=== PATIENT | female | born 1950 | race Two or more races ===

== ENCOUNTER 2022-12-02 08:02 | Outpatient (OUT) | payer MEDICARE, SELFPAY ==
--- NOTE | 2022-12-02 08:35 | US_ITS ---
The [address] [address] Patient Name: PEARL HAWKINS MRN: [id number] date: 1950 Sex: F Assigned Patient Location: Current Patient Location: US Accession/Order Number: [id number] Exam Date: 12/02/2022 08:40 Report Date: 12/02/2022 09:17 At the request of: YOLANDA ROSADO Procedure: US renal BI EXAM: Renal ultrasound HISTORY: . Cyst Of Kidney N28.1 . COMPARISON: None. TECHNIQUE: Grayscale and color imaging was performed FINDINGS: Scanning of the right kidney demonstrates right kidney to measure 9 x 5.3 x 5 cm. Color-flow is noted. No solid renal cortical masses or hydronephrosis is noted. There is a 6 mm cyst involving the right portion of the right kidney. Left kidney measures 10.9 x 4.9 x 3.9 cm. Color-flow is noted. No solid renal cortical masses or hydronephrosis is noted. There is a 3 mm nonobstructing right renal calculus. US/US renal BI IMPRESSION: 1. 3 mm nonobstructing left renal calculus. No hydronephrosis. 2. 6 mm cyst involving the right kidney. No hydronephrosis. Electronically authenticated by: BRYCE WILSON Date: 12/02/2022 09:17
== END 2022-12-02 08:03 | disposition home or self-care (01) ==
PROVIDERS: PCP Family Medicine; Visit Provider Urology
DX: N28.1 Cyst of kidney, acquired (principal); N20.0 Calculus of kidney
CPT/HCPCS: 76775

== ENCOUNTER 2023-02-06 23:44 | Emergency (ER) | payer MEDICARE, SELFPAY ==
[2023-02-06 23:49] VITALS: BP 160/91; PULSE 87; RESP 16; TEMP 36.7; O2SAT 98; BMI 24.5
--- NOTE | 2023-02-07 00:18 | ED.LOWEXI1 ---
HPI - Extremity Injury (Lower) General Chief Complaint: Extremity Injury, Lower Stated Complaint: LEG PAIN, POSSS BLOOD CLOT Time Seen by Provider: 02/06/23 23:55 History of Present Illness HPI Narrative: patient has varicose veins of her lower extremities. complains of pain of mary right leg for 2 weeks. States she was seen at hospital in [place] this past and found to have a blood clot . Was started on Eliquis by her PCP. Now presents complaining of pain of her right leg has moved up into her calf. she is compliant with Eliquis. no chest pain or dyspnea. Related Data Home Medications Medication Instructions Recorded Confirmed apixaban 2.5 mg tablet (Eliquis) 2.5 mg PO BID 02/06/23 02/06/23 Allergies Allergy/AdvReac Type Severity Reaction Status Date / Time amoxicillin Allergy Unknown Verified 02/06/23 23:53 cefdinir Allergy Unknown Verified 02/06/23 23:53 lisinopril Allergy Unknown Verified 02/06/23 23:53 metformin Allergy Unknown Verified 02/06/23 23:53 sulfamethoxazole Allergy Unknown Verified 02/06/23 23:53 [From Bactrim] trimethoprim [From Bactrim] Allergy Unknown Verified 02/06/23 23:53 Review of Systems ROS Status of ROS 10 or more systems reviewed and unremarkable except as noted in history and below [facility] Social History Smoking status: Never smoker Exam Constitutional Vital Signs, click to edit/add: Last Vital Signs Temp 98.0 F 02/06/23 23:49 Pulse 87 02/06/23 23:49 Resp 16 02/06/23 23:49 BP 160/91 H 02/06/23 23:49 Pulse Ox 98 02/06/23 23:49 O2 Del Method Room Air 02/06/23 23:49 Common normals: no apparent distress, average body habitus, oriented x3, no limitations, healthy appearing and alert Eye Common normals: EOMs intact bilaterally and conjunctivae normal Respiratory Common normals: normal respiratory effort, no retractions, no use of accessory muscles and clear to auscultation bilaterally Cardio Common normals: regular rate, regular rhythm, S1 normal heart sound and S2 normal heart sound Extremity Other: varicose veins bilat lower ext. Right calf tenderness. No swelling or warmth Neuro Common normals: CN's II-XII intact bilaterally, no focal motor deficits and no sensory deficits noted Psych Appearance: grossly normal Course Vital Signs Vital signs: Vital Signs Temperature 98.0 F 02/06/23 23:49 Pulse Rate 87 02/06/23 23:49 Respiratory Rate 16 02/06/23 23:49 Blood Pressure 160/91 H 02/06/23 23:49 Pulse Oximetry 98 02/06/23 23:49 Oxygen Delivery Method Room Air 02/06/23 23:49 Temperature 98.0 F 02/06/23 23:49 Pulse Rate 87 02/06/23 23:49 Respiratory Rate 16 02/06/23 23:49 Blood Pressure 160/91 H 02/06/23 23:49 Pulse Oximetry 98 02/06/23 23:49 Oxygen Delivery Method Room Air 02/06/23 23:49 MDM - Extremity Injury (Lower) MDM Narrative Medical decision making narrative: patient states she was diagnosed with blood clot 02/04/23. Describes ultrasound performed at hospital in [place]. States at that presentation she had pain of her leg at the ankle. This pain has resolved and now she has pain higher up on her leg. She has diffuse varicose veins on her right leg and points to a superficial vein that is inflamed and tender as the area of new pain. No swelling of the leg. We were not able to obtain the US report from [facility]. d-dimer positive here. Patient prescribed Eliquis 10mg bid which she has been on since 02/04/23. She is advised of the finding tonight of superficial phlebitis. That she is to continue dosing of Eliquis prescribed by her docto and she is to follow up with vascular surgeon tomorrow Wednesday. Discharged home in stable condition. No complaint of dyspnea or chest pain Discharge Plan Discharge Chief Complaint: Extremity Injury, Lower Clinical Impression: Varicose vein of leg, Phlebitis Prescriptions / Home Meds: No Action Eliquis 2.5 mg tablet 2.5 mg PO BID Instructions: Venous Insufficiency (DC) Additional Instructions: continue your current dosing of Eliquis. Can use Ice on your leg as discussed Referrals: Elisha James MD [Primary Care Provider] - 1 week
[2023-02-07 01:06] LABS: Basophils Absolute Auto 0.1 10^3/uL (0.0-0.1); Basophils Percent Auto 0.9 % (0.2-2.0); Eosinophils Absolute Auto 0.2 10^3/uL (0.0-0.7); Eosinophils Percent Auto 2.6 % (0.9-7.0); Hematocrit 36.6 % (36.0-48.0); Hemoglobin 12.8 g/dL (12.0-16.0); Immature Granulocytes Abs Auto 0.01 10^3/uL (0.00-0.03); Immature Granulocytes Pct Auto 0.1 % (0.0-0.5); Lymphocytes Absolute Auto 2.5 10^3/uL (1.2-3.8); Lymphocytes Percent Auto 36.2 % (20.5-60.0); Mean Corpuscular Hemoglobin 29.6 pg (26.7-34.0); Mean Corpuscular Volume 84.5 fL (81.0-99.0); Mean Platelet Volume 11.1 fL (9.5-13.5); Monocytes Absolute Auto 0.5 10^3/uL (0.3-0.8); Monocytes Percent Auto 7.7 % (1.7-12.0); Neutrophils Absolute Auto 3.6 10^3/uL (1.4-6.5); Neutrophils Percent Auto 52.5 % (43.0-75.0); Platelet Count 204 10^3/uL (150-450); Red Blood Count 4.33 10^6/uL (4.20-5.40); Red Cell Distribution Width 11.9 % (11.0-15.0); White Blood Count 6.9 10^3/uL (4.0-11.0)
[2023-02-07 01:14] LABS: Anion Gap 13.8; BUN Creatinine Ratio 12.2; Calcium 9.1 mg/dL (8.5-10.1); Carbon Dioxide 25.6 mmol/L (21.0-32.0); Chloride 102 mmol/L (98-107); Estimated GFR (African America >60 (>=60); Estimated GFR (Non-African Ame >60 (>=60); Glucose 207 mg/dL (74-106); Potassium 3.4 mmol/L (3.5-5.1); Sodium 138 mmol/L (136-145)
== END 2023-02-07 02:33 | disposition home or self-care (01) ==
PROVIDERS: Emergency Provider Internal Medicine; PCP Family Medicine
DX: I80.3 Phlebitis and thrombophlebitis of lower extremities, unspecified (principal); I83.811 Varicose veins of right lower extremity with pain; Z79.01 Long term (current) use of anticoagulants
CPT/HCPCS: 36415; 80048; 85025; 85378; 99283

== ENCOUNTER 2023-03-04 09:56 | Outpatient (OUT) | payer MEDICARE, SELFPAY ==
--- NOTE | 2023-03-04 | XR_ITS ---
The [address] [address] Patient Name: PEARL HAWKINS MRN: [facility]:[id number] date: 1950 Sex: F Assigned Patient Location: MRI Current Patient Location: Accession/Order Number: [id number] Exam Date: 03/04/2023 10:35 Report Date: 03/05/2023 06:53 At the request of: GINO CARRASQUILLO Procedure: XR cervical spine 5V EXAMINATION: XR cervical spine 5V HISTORY: Recurrent occipital headache , chronic posterior head and neck pain greater on right side, dizziness, no known injury COMPARISON: XR C-spine 11/20/2020 FINDINGS: BONES: Reversal of normal lordotic curvature of the lower cervical spine. Minimal grade 1 anterolisthesis of C5 on 6. No fracture. Moderate degenerative facet arthropathy resulting in bone encroachment of the neural foramen bilaterally at C3-4 through C6-7. Multilevel degenerative uncovertebral joint spurring. DISC SPACES: Moderate narrowing C5-6, C6-7. PARASPINOUS: Negative. No paraspinous abnormality is seen. OTHER: Negative. XR/XR cervical spine 5V IMPRESSION: 1. Multilevel degenerative disc disease and facet arthropathy; not appreciably changed. Consider MRI for further evaluation. Electronically authenticated by: KYLIE MARCANO Date: 03/05/2023 06:53
--- NOTE | 2023-03-04 | MR_ITS ---
The [address] [address] Patient Name: PEARL HAWKINS MRN: [facility]:[id number] date: 1950 Sex: F Assigned Patient Location: MRI Current Patient Location: MRI Accession/Order Number: [id number] Exam Date: 03/04/2023 10:40 Report Date: 03/04/2023 18:29 At the request of: GINO CARRASQUILLO Procedure: MR head/brain wo con EXAM: MR head/brain wo con HISTORY: Recurrent occipital headache COMPARISON: CT brain 03/09/2022. TECHNIQUE: MRI of the brain was performed without contrast. FINDINGS: There is no restricted diffusion to suggest acute infarct. There is no midline shift, mass effect, or abnormal extraaxial fluid collections. The cortical sulci and ventricular system are within normal limits for age. There are multiple nonspecific scattered and confluent foci of T2/FLAIR signal abnormality in the subcortical and periventricular white matter, chronic microvascular ischemic changes. The major intracranial flow voids are visualized. The cerebellar tonsils are normal in position. The orbits are unremarkable. The paranasal sinuses demonstrate no air-fluid level. The mastoid air cells are clear. MR/MR head/brain wo con IMPRESSION: No acute intracranial abnormality. Moderate chronic microvascular ischemic changes. Electronically authenticated by: SANNA BLACKBURN Date: 03/04/2023 18:29
== END 2023-03-04 09:57 | disposition home or self-care (01) ==
LOC: MRI 09:58
PROVIDERS: PCP Family Medicine; Visit Provider Family Medicine
DX: R51.9 Headache, unspecified (principal); M50.30 Other cervical disc degeneration, unspecified cervical region; M47.812 Spondylosis without myelopathy or radiculopathy, cervical region
CPT/HCPCS: 70551; 72050

== ENCOUNTER 2023-03-09 20:35 | Outpatient (REF) | payer MEDICARE, SELFPAY ==
[2023-03-12 22:08] LABS: Age Gdln ACOG Testing Note (.); Pap IG (Image Guided) Note (.)
== END 2023-03-09 20:36 | disposition home or self-care (01) ==
LOC: LAB 20:35
PROVIDERS: PCP Family Medicine; Visit Provider Obstetrics & Gynecology
DX: Z01.419 Encounter for gynecological examination (general) (routine) without abnormal findings (principal)
CPT/HCPCS: G0145

== ENCOUNTER 2023-03-17 12:56 | Outpatient (OUT) | payer MEDICARE, SELFPAY ==
--- NOTE | 2023-03-17 12:58 | US_ITS ---
The [address] [address] Patient Name: PEARL HAWKINS MRN: [id number] date: 1950 Sex: F Assigned Patient Location: US Current Patient Location: Accession/Order Number: [id number] Exam Date: 03/17/2023 12:58 Report Date: 03/18/2023 07:37 At the request of: DARBY JUAREZ Procedure: US pelvis w/ transvaginal EXAM: US pelvis w/ transvaginal HISTORY: PELVIC PAIN COMPARISON: None. TECHNIQUE: Transabdominal pelvic sonography was performed utilizing grayscale and color Doppler technique. FINDINGS: As below. US/US pelvis w/ transvaginal IMPRESSION: 1. Hysterectomy. 2. Ovaries not visualized. No adnexal masses. 3. No significant free fluid. Electronically authenticated by: KP CHOWDARY Date: 03/18/2023 07:37
== END 2023-03-17 12:57 | disposition home or self-care (01) ==
LOC: US 12:56
PROVIDERS: PCP Family Medicine; Visit Provider Obstetrics & Gynecology
DX: R10.2 Pelvic and perineal pain (principal)
CPT/HCPCS: 76830; 76856

== ENCOUNTER 2023-04-08 13:32 | Outpatient (OUT) | payer MEDICARE, SELFPAY ==
--- NOTE | 2023-04-08 | MM_ITS ---
Patient Name: PEARL HAWKINS MR#: [id number] : 1950 Exam Date: 04/08/2023 Ordering Doctor: DR Samson Narayan . RADIOLOGY REPORT PROCEDURE: MM TOMOSYNTHESIS DIAGNOSTIC BI, 04/08/2023, 13:43 US BREAST RT LIMITED, 04/08/2023, 13:58 COMPARISON: MG MAMM SCREEN 3D SALMA CAD, 09/22/2022. US BREAST RIGHT LIMITED, 10/05/2022. MG MAMM RT DIAG FU, 10/05/2022. INDICATIONS: BREAST LUMP RT BREAST N 63.11 Calculator Name NCI Breast Cancer Risk Assessment Tool 5 Year Breast Cancer Risk 1.40% Lifetime Breast Cancer Risk 3.80% Personal Breast Cancer No Personal Ovarian Cancer No Treatments None Family Cancers None LOCATION: [facility] BREAST COMPOSITION: Heterogeneously dense,which may obscure small masses. FINDINGS: DIAGNOSTIC CATEGORY 2--BENIGN FINDING: The breasts are stable in size and overall fibroglandular configuration.Scattered benign-appearing calcifications are present. Scattered benign-appearing lymph nodes are present. RIGHT BREAST: No significant suspicious finding. [place] marker upper outer quadrant, mid breast indicates a palpable mass period no ultrasound or mammographic abnormality is observed. Ultrasound demonstrates at the 10 o'clock position a 2 mm area of anechoic echogenicity likely a tiny cyst. It is doubtful that this is palpable. Further evaluation should be based on clinical and physical exam LEFT BREAST: No significant suspicious finding. RECOMMENDATIONS: ROUTINE MAMMOGRAM AND CLINICAL EVALUATION IN 12 MONTHS. PLEASE NOTE: A NORMAL MAMMOGRAM DOES NOT EXCLUDE THE POSSIBILITY OF BREAST CANCER. A CLINICALLY SUSPICIOUS PALPABLE LUMP SHOULD BE BIOPSIED. Dictated by: Jarad Hooker MD on 04/08/2023 at 14:22 Approved by: Jarad Hooker MD on 04/08/2023 at 14:26
== END 2023-04-08 13:33 | disposition home or self-care (01) ==
LOC: MAMMO 13:32
PROVIDERS: PCP Family Medicine; Visit Provider Obstetrics & Gynecology
DX: N63.11 Unspecified lump in the right breast, upper outer quadrant (principal)
CPT/HCPCS: 76642; 77066; G0279

== ENCOUNTER 2023-05-18 11:23 | Emergency (ER) | payer MEDICARE, SELFPAY ==
[2023-05-18] VITALS (11 sets, daily range): BP systolic 155; BP diastolic 90; PULSE 103–129; RESP 13–22; TEMP 39.3; O2SAT 93–97; BMI 24.5
--- NOTE | 2023-05-18 11:33 | XR_ITS ---
The [address] [address] Patient Name: PEARL HAWKINS MRN: [id number] date: 1950 Sex: F Assigned Patient Location: ER Current Patient Location: ED.MAIN Accession/Order Number: [id number] Exam Date: 05/18/2023 11:40 Report Date: 05/18/2023 12:00 At the request of: SEN ZAMORA Procedure: XR chest 1V EXAM: XR chest 1V HISTORY: fever COMPARISON: None. TECHNIQUE: AP view of the chest. FINDINGS: The cardiomediastinal silhouette is normal. Right basilar airspace disease. There is no pneumothorax. No pleural effusion is noted. The osseous structures are intact. XR/XR chest 1V IMPRESSION: No acute cardiopulmonary process. Electronically authenticated by: BLAIRE MCWILLIAMS Date: 05/18/2023 12:00
--- NOTE | 2023-05-18 11:33 | ECG_ITS ---
The [facility] Test Date: 2023-05-18 Pat Name: PEARL HAWKINS Department: Room: - Gender: Female [place]: : 1950 Requested By: GINO CARRASQUILLO Order Number: [id number] Reading MD: ARVIND BONILLA Measurements Intervals [place] Rate: 123 P: 61 NM: 154 QRS: 262 QRSD: 90 T: 56 QT: 324 QTc: 397 Interpretive Statements 1120 Sinus tachycardia 5130 Right ventricular hypertrophy 9150 abnormal ECG No previous ECG available for comparison Electronically Signed On 05-19-2023 7:06:46 EST by ARVIND BONILLA
[2023-05-18] MEDS: 0.9 % SODIUM CHLORIDE 1,000 ML 1000 ML IV (11:47)
[2023-05-18] MEDS: ACETAMINOPHEN 500 MG TABLET 1000 MG PO (11:47)
[2023-05-18 11:58] LABS: Basophils Percent Auto 0.4 % (0.2-2.0); Hematocrit 38.6 % (36.0-48.0); Hemoglobin 13.4 g/dL (12.0-16.0); Immature Granulocytes Abs Auto 0.02 10^3/uL (0.00-0.03); Immature Granulocytes Pct Auto 0.2 % (0.0-0.5); Lymphocytes Absolute Auto 0.7 10^3/uL (1.2-3.8); Lymphocytes Percent Auto 8.5 % (20.5-60.0); Mean Corpuscular HGB Conc 34.7 g/dL (29.9-35.2); Mean Corpuscular Hemoglobin 29.1 pg (26.7-34.0); Mean Corpuscular Volume 83.9 fL (81.0-99.0); Mean Platelet Volume 11.1 fL (9.5-13.5); Monocytes Absolute Auto 0.6 10^3/uL (0.3-0.8); Monocytes Percent Auto 7.4 % (1.7-12.0); Neutrophils Absolute Auto 7.1 10^3/uL (1.4-6.5); Neutrophils Percent Auto 83.5 % (43.0-75.0); Platelet Count 158 10^3/uL (150-450); Red Cell Distribution Width 11.8 % (11.0-15.0); White Blood Count 8.5 10^3/uL (4.0-11.0)
[2023-05-18 12:13] LABS: SARS-CoV-2 Ag NEGATIVE (NEGATIVE)
[2023-05-18 12:16] LABS: Alanine Aminotransferase 12 U/L (14-59); Albumin Globulin Ratio 0.9; Albumin Level 3.8 g/dL (3.4-5.0); Alkaline Phosphatase 64 U/L (46-116); Aspartate Amino Transferase 12 U/L (15-37); BUN Creatinine Ratio 8.5; Bilirubin Total 0.8 mg/dL (0.2-1.0); Calcium 9.3 mg/dL (8.5-10.1); Chloride 95 mmol/L (98-107); Estimated GFR (African America >60 (>=60); Estimated GFR (Non-African Ame >60 (>=60); Glucose 205 mg/dL (74-106); Sodium 133 mmol/L (136-145); Total Protein 7.8 g/dL (6.4-8.2); Troponin I High Sensitivity 26.7 pg/mL (4.0-51.3)
[2023-05-18 12:27] LABS: PROCALCITONIN <0.05 ng/mL (0.00-0.50)
--- NOTE | 2023-05-18 12:27 | ED.GENADUL1 ---
HPI - General Adult General Chief complaint: Weakness Stated complaint: DIZZINESS/ GENERAL WEAKNESS Time Seen by Provider: 05/18/23 11:28 Source: patient Mode of arrival: Wheelchair Limitations: no limitations History of Present Illness HPI narrative: 3 days of generalized weakness with cough, headache and nausea without vomiting. No known ill exposures. No chest pain or shortness of breath. Had fever at home and in ED. Nothing taken for the fever. She had several ill exposures through family members recently. She admits to eating and drinking less than she normally does. She is not having any abdominal pain or vomiting. Related Data Home Medications Medication Instructions Recorded Confirmed apixaban 2.5 mg tablet (Eliquis) 2.5 mg PO BID 02/06/23 02/06/23 Previous Rx's Medication Instructions Recorded ondansetron 4 mg disintegrating 4 mg PO Q6H PRN nausea and 05/18/23 tablet vomiting #14 tabs Allergies Allergy/AdvReac Type Severity Reaction Status Date / Time amoxicillin Allergy Unknown Verified 02/06/23 23:53 cefdinir Allergy Unknown Verified 02/06/23 23:53 lisinopril Allergy Unknown Verified 02/06/23 23:53 metformin Allergy Unknown Verified 02/06/23 23:53 sulfamethoxazole Allergy Unknown Verified 02/06/23 23:53 [From Bactrim] trimethoprim [From Bactrim] Allergy Unknown Verified 02/06/23 23:53 PFSH PFSH Social History Smoking status: Never smoker Exam Narrative Exam Narrative: Nurses notes and vital signs reviewed and patient is not hypoxic. FEBRILE General: Well-appearing and in no apparent distress. Skin: Warm, dry, no pallor noted. No rash. Head: Normocephalic, atraumatic. Neck: Supple, non-tender. Eye: Pupils are equal, round and EOMI. No scleral icterus. Ears, Nose, Mouth, and Throat: TM are clear, no posterior oropharynx erythema or nasal mucosal hypertrophy, uvula is mid-line Oral mucosa is moist Cardiovascular: tachycardia. Respiratory: No accessory muscle use or respiratory distress. Lungs are clear to auscultation, no wheezing, rales or rhonchi Chest Wall: no tenderness Back: No midline thoracic or lumbar vertebral tenderness. No CVA tenderness Musculoskeletal: normal ROM, no calf or popliteal tenderness, no lower extremity edema/swelling GI: Abdomen is soft, non-distended. Normal bowel sounds. No tenderness to palpation. No rebound, guarding, or rigidity noted. Neurological: A&O x4. No cranial nerve dysfunction observed. No truncal ataxia. Moves all extremities. Sensation intact. Psychiatric: Cooperative and interactive. Normal mood and affect. Constitutional Vital Signs, click to edit/add: Last Vital Signs Temp 102.8 F H 05/18/23 11:26 Pulse 129 H 05/18/23 11:26 Resp 20 05/18/23 11:26 BP 155/90 H 05/18/23 11:26 Pulse Ox 96 05/18/23 11:26 O2 Del Method Room Air 05/18/23 11:26 Course Vital Signs Vital signs: Vital Signs Temperature 102.8 F H 05/18/23 11:26 Pulse Rate 129 H 05/18/23 11:26 Respiratory Rate 20 05/18/23 11:26 Blood Pressure 155/90 H 05/18/23 11:26 Pulse Oximetry 96 05/18/23 11:26 Oxygen Delivery Method Room Air 05/18/23 11:26 Temperature 102.8 F H 05/18/23 11:26 Pulse Rate 129 H 05/18/23 11:26 Respiratory Rate 20 05/18/23 11:26 Blood Pressure 155/90 H 05/18/23 11:26 Pulse Oximetry 96 05/18/23 11:26 Oxygen Delivery Method Room Air 05/18/23 11:26 Medical Decision Making MDM Narrative Medical decision making narrative: Patient was placed on cardiac technologist and EKG obtained. Blood drawn and sent for evaluation, including lactate and blood cultures per sepsis protocol. Chest x-ray obtained. White blood cell count normal. CBC unremarkable. COVID was negative. CXR read as negative by radiologist. Troponin negative. Lactate negative. Mild decrease in sodium at 133, potassium of 3.0, normal BUN and creatinine Patient has flulike illness with fever. She needs to increase her fluid intake -she admittedly has not been eating or drinking the way that she normally does. Discussed the importance of taking Tylenol and Motrin for any aches or fever that she has. Patient advised to rest, stay at home, practice social distancing, take Motrin and Tylenol for pain and fever if not allergic, stay well hydrated with Gatorade or similar drinks if vomiting or eat as tolerated if not and take any meds as prescribed. Reviewed reasons to return including rapid increase in respiratory rate, shortness of breath, confusion, inability to keep down sips of swallowed liquids for more than 24 hours. Asked patient to encourage any ill contacts to stay home and practice similar advice. Lab Data Lab results reviewed: Yes I reviewed the patient's lab results Labs: Lab Results 05/18/23 Range/Units 11:39 WBC 8.5 (4.0-11.0) 10^3/uL RBC 4.60 (4.20-5.40) 10^6/uL Hgb 13.4 (12.0-16.0) g/dL Hct 38.6 (36.0-48.0) % MCV 83.9 (81.0-99.0) fL MCH 29.1 (26.7-34.0) pg MCHC 34.7 (29.9-35.2) g/dL RDW 11.8 (11.0-15.0) % Plt Count 158 (150-450) 10^3/uL MPV 11.1 (9.5-13.5) fL Neut % (Auto) 83.5 H (43.0-75.0) % Lymph % (Auto) 8.5 L (20.5-60.0) % Kerr % (Auto) 7.4 (1.7-12.0) % Eos % (Auto) 0.0 L (0.9-7.0) % Baso % (Auto) 0.4 (0.2-2.0) % Neut # (Auto) 7.1 H (1.4-6.5) 10^3/uL Lymph # (Auto) 0.7 L (1.2-3.8) 10^3/uL Kerr # (Auto) 0.6 (0.3-0.8) 10^3/uL Eos # (Auto) 0.0 (0.0-0.7) 10^3/uL Baso # (Auto) 0.0 (0.0-0.1) 10^3/uL Abs Immat Gran (auto) 0.02 (0.00-0.03) 10^3/uL Imm/Tot Granulo (auto) 0.2 (0.0-0.5) % Sodium 133 L (136-145) mmol/L Potassium 3.0 L (3.5-5.1) mmol/L Chloride 95 L (98-107) mmol/L Carbon Dioxide 27.0 (21.0-32.0) mmol/L Anion Gap 14.0 BUN 6.0 L (7.0-18.0) mg/dL Creatinine 0.71 (0.55-1.02) mg/dL Est GFR ( Amer) >60 (>=60) Est GFR (Non-Af Amer) >60 (>=60) BUN/Creatinine Ratio 8.5 Glucose 205 H (74-106) mg/dL Lactate 2.0 (0.4-2.0) mmol/L Calcium 9.3 (8.5-10.1) mg/dL Total Bilirubin 0.8 (0.2-1.0) mg/dL AST 12 L (15-37) U/L ALT 12 L (14-59) U/L Alkaline Phosphatase 64 (46-116) U/L Troponin I High Sens 26.7 (4.0-51.3) pg/mL Total Protein 7.8 (6.4-8.2) g/dL Albumin 3.8 (3.4-5.0) g/dL Globulin 4.0 g/dL Albumin/Globulin Ratio 0.9 SARS-CoV-2 (PCR) Negative (NEGATIVE) Imaging Data Chest x-ray: Radiologist's impression: Patient Name: PEARL HAWKINS MRN: [id number] date: 1950 Sex: F Assigned Patient Location: ER Current Patient Location: ED.MAIN Accession/Order Number: [id number] Exam Date: 05/18/2023 11:40 Report Date: 05/18/2023 12:00 At the request of: SEN ZAMORA Procedure: XR chest 1V EXAM: XR chest 1V HISTORY: fever COMPARISON: None. TECHNIQUE: AP view of the chest. FINDINGS: The cardiomediastinal silhouette is normal. Right basilar airspace disease. There is no pneumothorax. No pleural effusion is noted. The osseous structures are intact. IMPRESSION: No acute cardiopulmonary process. Electronically authenticated by: BLAIRE MCWILLIAMS Date: 05/18/2023 12:00 ECG Data Attestation: I personally reviewed and interpreted this ECG as follows: Interpretation: EKG interpretation: Emergency Department physician interpretation. Sinus tachycardia at 123bpm. RVH. no ST segment elevation or depression. Discharge Plan Discharge Chief Complaint: Weakness Clinical Impression: Acute viral syndrome, Acute hyponatremia, Acute febrile illness, Hypokalemia Patient Disposition: Home, Self-Care Time of Disposition Decision: 12:34 Prescriptions / Home Meds: New ondansetron 4 mg tablet,disintegrating 4 mg PO Q6H PRN (Reason: nausea and vomiting) Qty: 14 0RF No Action Eliquis 2.5 mg tablet 2.5 mg PO BID Instructions: Fever in Adults (ED), Viral Syndrome (ED) Stand Alone Forms: Portal Instructions Referrals: Elisha James MD [Primary Care Provider] - 1 week
[2023-05-19 10:05] LABS: SARS-CoV-2 NAA NOT DETECTED (NOT DETECTE)
== END 2023-05-18 12:59 | disposition home or self-care (01) ==
PROVIDERS: Emergency Provider Emergency Medicine; PCP Family Medicine
DX: R50.9 Fever, unspecified (principal); B34.9 Viral infection, unspecified; E87.1 Hypo-osmolality and hyponatremia; E87.6 Hypokalemia
CPT/HCPCS: 36415; 71045; 80053; 83605; 84145; 84484; 85025; 87040; 87635; 87811; 93005; 99285

== ENCOUNTER 2023-05-31 12:49 | Outpatient (OUT) | payer MEDICARE, SELFPAY ==
--- OUTSIDE RECORDS SUMMARY | 2023-05-31 12:52 | XMS_ITS | CCD ---
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 Role Phone BRUCE WALLER Primary Care Physician Elisha Carrasquillo NEIDA, DR ELISHA Lara Attending Unavailable CARRASQUILLO, DR ELISHA Lara Admitting Unavailable ZIEBER, DR CIPRIANO Soto Consulting Unavailable CARRASQUILLO, DR ELISHA Lara Primary Care Unavailable CARRASQUILLO, DR ELISHA Lara Consulting Unavailable CARRASQUILLO, DR ELISHA Lara Primary Care Unavailable CARRASQUILLO, DR ELISHA Lara Attending Unavailable HIGGINSON, DR BRYCE Garcia Consulting Unavailable CARRASQUILLO, DR ELISHA Lara Admitting Unavailable CARRASQUILLO, DR ELISHA Lara Consulting Unavailable CARRASQUILLO, DR ELISHA Lara Primary Care Unavailable CARRASQUILLO, DR ELISHA Lara Attending Unavailable ZIEBER, DR CIPIRANO Soto Consulting Unavailable CARRASQUILLO, DR ELISHA Lara Admitting Unavailable CARRASQUILLO, DR ELISHA Lara Consulting Unavailable DIAB ., ESA Consulting Unavailable DIAB ., ESA Attending Unavailable FURLONG, DR BRUCE Porter Primary Care Unavailable DIAB ., ESA Admitting Unavailable FURMINDYNG, DR BRUCE Porter Primary Care Unavailable HAY ., DR CHATTERJEE Consulting Unavailable HAY ., DR CHATTERJEE Attending Unavailable HAY ., DR CHATTERJEE Admitting Unavailable FALVOJOSE M Consulting Unavailable FURMINDYNG, DR BRUCE Porter Primary Care Unavailable MARKER ., DR MCCONNELL Consulting Unavailable MARKER ., DR MCCONNELL Attending Unavailable MARKER ., DR MCCONNELL Admitting Unavailable RAYNE JOHNSON Consulting Unavailable CARRASQUILLO, DR ELISHA Lara Primary Care Unavailable LARRY ., DR PASTOR Consulting Unavailable LARRY ., DR PASTOR Attending Unavailable LARRY ., DR PASTOR Admitting Unavailable ZIEBER, DR CIPRIANO Soto Consulting Unavailable SRIDHAR, DR BRUCE Porter Primary Care Unavailable LARRY ., DR PASTOR Consulting Unavailable LARRY ., DR PASTOR Attending Unavailable LARRY ., DR PASTOR Admitting Unavailable FURLONG, DR BRUCE Porter Primary Care Unavailable NORMA STOVALL Attending Unavailable LOBITO YEE Consulting Unavailable NORMA STOVALL Admitting Unavailable NORMA STOVALL Consulting Unavailable ELISHA CARRASQUILOL Primary Care Physician Norma Pulido. Attending Unavailable KRISTINE WESTON Attending Unavailab KRISTINE Benavides Attending Unavailab KRISTINE Benavides Admitting Unavailab le Allergies Allergy Classification Reported Allergen(s) Allergy Type Date of Onset Reaction(s) Facility (20 sources) Amoxicillin; Translations: [amoxicillin] Drug Allergy Eruption of skin (disorder), Hives [facility] (20 sources) cefdinir; Translations: [cefdinir] Drug Allergy Eruption (morphologic abnormality), Rash [facility] (20 sources) Lisinopril; Translations: [lisinopril] Drug Allergy Cough (finding) [facility] (4 sources) metFORMIN; Translations: [metformin] Drug Allergy Other (qualifier value) [facility] (20 sources) Sulfamethoxazole / Trimethoprim; Translations: [sulfamethoxazole-tr imethoprim] Drug Allergy Other (qualifier value) [facility] (1 source) Amino Acids Drug Allergy 3 [facility] (1 source) Amoxicillin Drug Allergy 1 [facility] (1 source) cefdinir Drug Allergy 3 [facility] (1 source) metFORMIN Drug Allergy 3 [facility] (1 source) Sulfamethoxazole / Trimethoprim Drug Allergy 3 [facility] Medications Current Medications Medication Drug Class(es) Dates Sig (Normalized) Sig (Original) 600+D3 600-20 MG-MCG (15 sources) take 1 tablet by mouth once daily 600+D3 600-20 MG-MCG 1 tablet with a meal Orally Once a day Active amLODIPine 5 mg oral tablet (19 sources) Dihydropyridine Calcium Channel Aileen Start: 06-04-2021 take 1 mg by mouth once daily amLODIPine 5 mg Tab mg tab(s), Oral, Daily, Refills(s) 0 Start Date: 06/04/21 Status: Ordered apixaban 5 mg oral tablet (3 sources) Factor Xa Inhibitor take 1 tablet by mouth every twelve hours Eliquis 5 MG 1 tablet Orally Twice a day for 30 days Active aspirin 81 mg oral capsule (3 sources) Platelet Aggregation Inhibitor, Nonsteroidal Anti-inflammatory Drug Start: 06-04-2021 take 1 mg by mouth every four hours aspirin 81 mg oral capsule mg cap(s), Oral, q4hr, Refills(s) 0 Start Date: 06/04/21 Status: Ordered atorvastatin 20 mg oral tablet (17 sources) HMG-CoA Reductase Inhibitor Start: 06-04-2021 take 1 mg by mouth once daily atorvastatin 20 mg Tab mg tab(s), Oral, Daily, Refills(s) 0 Start Date: 06/04/21 Status: Ordered benzonatate 200 mg oral capsule (1 source) Non-narcotic Antitussive Start: 05-19-2023 take 1 capsule by mouth every eight hours Benzonatate 200 MG 1 capsule Orally Three times a day for 10 day(s) Apr, Active calcium carbonate 1500 mg / cholecalciferol 800 unt oral tablet (1 source) Vitamin D take 1 tablet by mouth every twenty-four hours 600+D3 600-20 MG-MCG 1 tablet with a meal Orally Once a day Active ciprofloxacin 500 mg oral tablet (3 sources) Quinolone Antimicrobial Start: 08-27-2022 take 1 tablet by mouth every twelve hours Ciprofloxacin HCl 500 MG 1 tablet Orally every 12 hrs for 7 days Aug, Active Docusate (3 sources) Start: 06-04-2021 take 1 mg by mouth twice daily Dulcolax Stool Softener mg, Oral, BID, Refills(s) 0 Start Date: 06/04/21 Status: Ordered fluconazole 100 mg oral tablet (2 sources) Azole Antifungal Start: 09-08-2022 take 1 tablet by mouth every twenty-four hours Fluconazole 100 MG 1 tablet Orally daily for 7 days Aug, Active glimepiride 1 mg oral tablet (2 sources) Sulfonylurea Start: 06-04-2021 take 1 tablet by mouth once daily glimepiride 1 mg Tab mg tab(s), Oral, Daily, Refills(s) 0 Start Date: 06/04/21 Status: Ordered losartan potassium 25 mg oral tablet (16 sources) Angiotensin 2 Receptor Aileen take 1 tablet by mouth every twenty-four hours Losartan Potassium 25 MG 1 tablet Orally Once a day Active meclizine hydrochloride 25 mg oral tablet (18 sources) Antiemetic Start: 06-04-2021 take 1 mg by mouth three times daily meclizine 25 mg Tab mg tab(s), Oral, TID, Refills(s) 0 Start Date: 06/04/21 Status: Ordered take 1 tablet by rebekah th every twelve hours Meclizine HCl 25 MG 1 tablet as needed Orally every 12 hrs Active meloxicam 7.5 mg oral tablet (20 sources) Nonsteroidal Anti-inflammatory Drug Start: 10-07-2022 take 1 tablet by mouth every twenty-four hours Meloxicam 7.5 MG 1 tablet Orally Once a day for 30 days September, Active Start: 06-04-2021 take 1 mg by mouth once daily meloxicam 15 mg oral tablet mg tab(s), Oral, Daily, Refills(s) 0 Start Date: 06/04/21 Status: Ordered metFORMIN hydrochloride 500 mg oral tablet (19 sources) Biguanide Start: 06-04-2021 take 1 mg by mouth twice daily metformin 500 mg Tab mg tab(s), Oral, BID, Refills(s) 0 Start Date: 06/04/21 Status: Ordered take 1 tablet by rebekah th every twenty-four hours metFORMIN HCl 500 MG 1 tablet with a meal Orally Once a day for 90 days Active pioglitazone 15 mg oral tablet (16 sources) Peroxisome Proliferator Receptor alpha Agonist, Peroxisome Proliferator Receptor gamma Agonist, Thiazolidinedione take 1 tablet by mouth every twenty-four hours Pioglitazone HCl 15 MG 1 tablet Orally Once a day Active tiZANidine 4 mg oral tablet (2 sources) Central alpha-2 Adrenergic Agonist tiZANidine HCl 4 MG 1/2-1 tablet HS Active Vitamin D3 (3 sources) Start: 022 Vitamin D3 Refills(s) 0 Start Date: 06/04/21 Status: Ordered Problems Active Problems Problem Classification Problem Date Documented Da te Episodic/Chronic Diabetes mellitus with complications (20 sources) Type 2 diabetes mellitus; Translations: [Type 2 diabetes mellitus with hyperglycemia] Onset: 08-12-2022 Chronic Diabetes mellitus without complication (1 source) Type 2 diabetes mellitus without complications; Translations: [TYPE 2 DM WITHOUT COMPLICATIONS] Onset: 03-10-2022 Chronic Disorders of lipid metabolism (19 sources) Mixed hyperlipidemia; Translations: [Mixed hyperlipidemia] Onset: 03-10-2022 Chronic Essential hypertension (17 sources) Essential hypertension; Translations: [Essential (primary) hypertension] Onset: 03-10-2022 Chronic Genitourinary symptoms and ill-defined conditions (2 sources) Unspecified urinary incontinence; Translations: [Urinary incontinence] Onset: 11-26-2021 Chronic Nonmalignant breast conditions (1 source) Unspecified lump in the right breast, upper inner quadrant; Translations: [UNS LUMP IN RT BREAST UPR INR QUAD] Onset: 09-29-2022 Episodic Nonspecific chest pain (4 sources) Other chest pain; Translations: [OTHER CHEST PAIN] Onset: 07-16-2022 Episodic Other aftercare (1 source) Long-term current use of aspirin; 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] Onset: 11-26-2021 Episodic Other aftercare (1 source) senior care (current) use of oral hypoglycemic drugs; Translations: [COURT CLERK USE ORAL HYPOGLYCEMIC DX] Onset: 07-20-2022 Episodic Other aftercare (1 source) Other senior care (current) drug therapy; Translations: [OTH COURT CLERK CURRENT DRUG THERAPY] Onset: 07-20-2022 Episodic Other bone disease and musculoskeletal deformities (1 source) Other specified disorders of bone density and structure, unspecified site; Translations: [OTH D/O BONE DEN STRUCT UNS SITE] Onset: 08-15-2022 Episodic Other connective tissue disease (2 sources) Pain in right leg; Translations: [PAIN IN RIGHT LEG] Onset: 08-15-2022 Episodic Other connective tissue disease (2 sources) Cramp and spasm; Translations: [CRAMP AND SPASM] Onset: 08-15-2022 Episodic Other diseases of kidney and ureters (1 source) Acquired renal cyst without neoplastic change; Translations: [Cyst of kidney, acquired] Onset: 11-26-2021 Episodic Other diseases of kidney and ureters (1 source) Cyst of kidney 11-26-2022 Episodic Other screening for suspected conditions (not mental disorders or infectious disease) (10 sources) Encounter for screening mammogram for malignant neoplasm of breast; Translations: [Other abnormal and inconclusive findings on diagnostic imaging of breast] Onset: 01-27-2022 Episodic Other upper respiratory infections (1 source) Acute maxillary sinusitis, unspecified Episodic Residual codes; unclassified (4 sources) Asymptomatic menopausal state; Translations: [ASYMPTOMATIC MENOPAUSAL STATE] Onset: 08-11-2022 Episodic Spondylosis; intervertebral disc disorders; other back problems (3 sources) Cervicalgia; Translations: [Radiculopathy, lumbar region] Onset: 03-10-2022 Episodic Unclassified (3 sources) Long-term current use of aspirin 06-04-2021 Unclassified (1 source) LOW BACK PAIN, UNSPECIFIED; Translations: [LOW BACK PAIN, UNSPECIFIED] Onset: 08-15-2022 Unclassified (1 source) Asymptomatic microscopic hematuria 11-26-2022 Unclassified (1 source) Finding of sensation of bladder 12-09-2022 Varicose veins of lower extremity (11 sources) Varicose veins of lower extremity; Translations: [Varicose veins of bilateral lower extremities with pain] Episodic Past or Other Problems Problem Classification Problem Date Documented Date Episodic/Chronic Conditions associated with dizziness or vertigo (4 sources) Dizziness and giddiness; Translations: [DIZZINESS AND GIDDINESS] Onset: 11-12-2021 Episodic E Codes: Fall (1 source) Fall on same level from slipping, tripping and stumbling without subsequent striking against object, initial encounter; Translations: [FALL SAME LVL SLIP NO STRK OBJ INIT] Onset: 03-10-2022 Episodic Genitourinary symptoms and ill-defined conditions (5 sources) Microscopic hematuria; Translations: [Asymptomatic microscopic hematuria] Onset: 11-22-2021 Episodic Headache; including migraine (6 sources) Headache; including migraine; Translations: [HEADACHE UNSPECIFIED] Onset: 03-09-2022 Immunizations and screening for infectious disease (1 source) Encounter for screening for human papillomavirus (HPV); Translations: [ENC SCREENING HUMAN PAPILLOMAVIRUS] Onset: 01-29-2022 Episodic Other injuries and conditions due to external causes (1 source) Unspecified injury of head, initial encounter; Translations: [UNSPECIFIED INJURY HEAD INITIAL ENC] Onset: 03-10-2022 Episodic Residual codes; unclassified (1 source) Acquired absence of both cervix and uterus; Translations: [ACQUIRED ABSENCE BOTH CERVIX AND UTERUS] Onset: 03-10-2022 Episodic Unclassified (1 source) Low back pain, unspecified M54.50 Unclassified (1 source) Vaginal yeast infection B37.31 Unclassified (1 source) 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 Results Test Name Value Interpretation Reference Range Facility RAD - Ultrasound Reporton RAD - Ultrasound Report [id number] [facility] C Urineon 12-11-2022 Bacteria identified Cx Nom (U) Microbiology PROCEDURE: Urine Culture [R1] SOURCE: U Random BODY SITE: COLLECTED DATE/TIME: 12/09/2022 15:29 EDT RECEIVED DATE/TIME: 12/09/2022 18:26 EDT START DATE/TIME: 12/09/2022 18:26 EDT FREE TEXT SOURCE: SADAF WESTON PA-C, PA-C, JENNIFER E FINAL REPORTS Final Report [] Verified Date/Time: 12/11/2022 11:20 EDT 1,000 cfu/ml Mixed skin contaminants Performing Locations R1: This test was performed at: [facility], [address] [place] [address], [id number] , , [facility] Comment on above: Performed By: #### [id number] #### [facility] [address] [place] [id number] Ambulatory Visit Summaryon 0 12-09-2022 Ambulatory Visit Summary PEARL HAWKINS :1950 Visit Date:12/09/2022 Ambulatory Visit Instructions Your Diagnosis Asymptomatic microscopic hematuria Renal cyst Leaking of urine Feeling of incomplete bladder emptying Aspirin long-term use Tests Performed Urnls Dip Stick Auto w/o Microscopy POC [id number] Your Care Team Attending Physician - SADAF WESTON PA-C Primary Care Physician - NEIDA LAWTON, ELISHA This Is Your Medications List Contact prescribing physician if questions or concerns amlodipine (amLODIPine 5 mg Tab) aspirin (aspirin 81 mg oral capsule) atorvastatin (atorvastatin 20 mg Tab) cholecalciferol (Vitamin D3) docusate (Dulcolax Stool Softener) meloxicam (meloxicam 15 mg oral tablet) metformin (metformin 500 mg Tab) Procedures Performed Cystoscopy (06/16/2021), Colonoscopy, Colonoscopy, Hysterectomy. Discharge Vitals Heart Rate (Peripheral) 89 Blood Pressure 125/77 Height 152 cm Height 60 in Weight 62.0 kg Weight 136.4 lb BMI 26.84 What to do next Scheduled Follow-Up Appointments Wednesday 9:00 AM EDT With: Ashok LAWTON, Norma Chambers Where: [facility] Patient Educationon 12-10-19 Patient Education Urology Hematuria, Adult Hematuria is blood in the urine. Blood may be visible in the urine, or it may be identified with a test. This condition can be caused by infections of the bladder, urethra, kidney, or prostate. Other possible causes include: ? Kidney stones. ? Cancer of the urinary tract. ? Too much calcium in the urine. ? Conditions that are passed from parent to child (inherited conditions). ? Exercise that requires a lot of energy. Infections can usually be treated with medicine, and a kidney stone usually will pass through your urine. If neither of these is the cause of your hematuria, more tests may be needed to identify the cause of your symptoms. It is very important to tell your health care provider about any blood in your urine, even if it is painless or the blood stops without treatment. Blood in the urine, when it happens and then stops and then happens again, can be a symptom of a very serious condition, including cancer. There is no pain in the initial stages of many urinary cancers. Follow these instructions at home: Medicines ? Take nvfh-ake-cekwuci and prescription medicines only as told by your health care provider. ? If you were prescribed an antibiotic medicine, take it as told by your health care provider. Do not stop taking the antibiotic even if you start to feel better. Eating and drinking ? Drink enough fluid to keep your urine pale yellow. It is recommended that you drink 3?4 quarts (2.8?3.8 L) a day. If you have been diagnosed with an infection, drinking cranberry juice in addition to large amounts of water is recommended. ? Avoid caffeine, tea, and carbonated beverages. These tend to irritate the bladder. ? Avoid alcohol because it may irritate the prostate (in males). General instructions ? If you have been diagnosed with a kidney stone, follow your health care provider's instructions about straining your urine to catch the stone. ? Empty your bladder often. Avoid holding urine for long periods of time. ? If you are female: ? After a bowel movement, wipe from front to back and use each piece of toilet paper only once. ? Empty your bladder before and after sex. ? Pay attention to any changes in your symptoms. Tell your health care provider about any changes or any new symptoms. ? It is up to you to get the results of any tests. Ask your health care provider, or the department that is doing the test, when your results will be ready. ? Keep all follow-up visits. This is important. Contact a health care provider if: ? You develop back pain. ? You have a fever or chills. ? You have nausea or vomiting. ? Your symptoms do not improve after 3 days. ? Your symptoms get worse. Get help right away if: ? You develop severe vomiting and are unable to take medicine without vomiting. ? You develop severe pain in your back or abdomen even though you are taking medicine. ? You pass a large amount of blood in your urine. ? You pass blood clots in your urine. ? You feel very weak or like you might faint. ? You faint. Summary ? Hematuria is blood in the urine. It has many possible causes. ? It is very important that you tell your health care provider about any blood in your urine, even if it is painless or the blood stops without treatment. ? Take kjrd-tgh-kwkmazm and prescription medicines only as told by your health care provider. ? Drink enough fluid to keep your urine pale yellow. This information is not intended to replace advice given to you by your health care provider. Make sure you discuss any questions you have with your health care provider. Document Revised: 01/08/2021 Document Reviewed: 01/08/2021 [employer] Patient Education ? 2022 [employer] [facility] URINALYSISOrdered By: Stephanie moy on 12-09-2022 Bilirubin Ql (U) Negative (12/09/22 3:29 PM) Normal Negative [facility] UA Auto SS Clarity (U) Clear (12/09/22 3:29 PM) Normal Clear [facility] UA Auto SS Color (U) Yellow (12/09/22 3:29 PM) Normal Yellow [facility] UA Auto SS Crystals LM Ql (Urine sed) Present (12/09/22 3:29 PM) Normal [facility] UA Auto SS Epithelial cells.squamous LM.HPF (Urine sed) [#/Area] 0-2 /HPF Normal 0-2/HPF [facility] UA Auto SS Glucose Test strip (U) [Mass/Vol] 1+ *ABN* (12/09/22 3:29 PM) Invalid Interpretation Code Negative [facility] UA Auto SS Hemoglobin Ql (U) 2+ *ABN* (12/09/22 3:29 PM) Invalid Interpretation Code Negative [facility] UA Auto SS Ketones (U) [Mass/Vol] Trace *NA* (12/09/22 3:29 PM) Invalid Interpretation Code Negative [facility] UA Auto SS [place].plasma/Lithi um.RBC (Bld) [Mass ratio] 0-3 /HPF Normal 0-3/HPF [facility] UA Auto SS Mucus Ql (Urine sed) 2+ (12/09/22 3:29 PM) Normal [facility] UA Auto SS Nitrite Ql (U) Negative (12/09/22 3:29 PM) Normal Negative [facility] UA Auto SS pH (U) 6.0 *NA* (12/09/22 3:29 PM) Invalid Interpretation Code 5.0 - 9.0 [facility] UA Auto SS Protein (U) [Mass/Vol] Negative (12/09/22 3:29 PM) Normal Negative [facility] UA Auto SS Specific gravity (U) [Rel density] 1.015 *NA* (12/09/22 3:29 PM) Invalid Interpretation Code 1.005 - 1.030 [facility] UA Auto SS UA Spec Desc Random Urine (12/09/22 3:29 PM) Normal [facility] UA Auto SS Urobilinogen Qn (U) 0.3712718 {Tyrell'U}/dL Normal 0.0 - 1.0 EU/dL [facility] UA Auto SS WBC Auto Ql (U) Negative (12/09/22 3:29 PM) Normal Negative [facility] UA Auto SS WBC LM.HPF (Urine sed) [#/Area] 0-5 /HPF Normal 0-5/HPF [facility] Auto SS Urinalysison 12-09-2022 Bilirubin Ql (U) Negative Normal Negative [facility] Comment on above: Performed By: #### 1 [id number] #### [facility] [address] [place] [address] Clarity (U) CLEAR Normal Clear [facility] Comment on above: Performed By: #### 1 [id number] #### [facility] [address] [place] [address] Color (U) YELLOW Normal Yellow [facility] Comment on above: Performed By: #### 1 [id number] #### [facility] [address] [place] [address] Crystals LM Ql (Urine sed) Present Normal [facility] Comment on above: Performed By: #### 1 [id number] #### [facility] [address] [place] [address] Epithelial cells.squamous LM.HPF (Urine sed) [#/Area] 0-2 Normal 0-2 [facility] Comment on above: Performed By: #### 1 [id number] #### [facility] [address] [place] [address] Glucose Test strip (U) [Mass/Vol] 1+ Abnormal Negative [facility] Comment on above: Performed By: #### 1 [id number] #### [facility] [address] [place] [address] Hemoglobin Ql (U) 2+ Abnormal Negative [facility] Comment on above: Performed By: #### 1 [id number] #### [facility] [address] [place] [address] Ketones (U) [Mass/Vol] TRACE Invalid Interpretation Code Negative [facility] Comment on above: Performed By: #### 1 [id number] #### [facility] [address] [place] [address] [place].plasma/Lithi um.RBC (Bld) [Mass ratio] 0-3 Normal 0-3 [facility] Comment on above: Performed By: #### 1 [id number] #### [facility] [address] [place] [address] Mucus Ql (Urine sed) 2+ Normal [facility] Comment on above: Performed By: #### 1 [id number] #### [facility] [address] [place] [address] Nitrite Ql (U) Negative Normal Negative [facility] Comment on above: Performed By: #### 1 [id number] #### [facility] [address] [place] [address] pH (U) 6.0 [pH] Invalid Interpretation Code 5.0-9.0 [facility] Comment on above: Performed By: #### 1 [id number] #### [facility] [address] [place] [address] Protein (U) [Mass/Vol] Negative Normal Negative [facility] Comment on above: Performed By: #### 1 [id number] #### [facility] [address] [place] [address] Specific gravity (U) [Rel density] 1.015 Invalid Interpretation Code 1.005-1.030 [facility] Comment on above: Performed By: #### 1 [id number] #### [facility] [address] [place] [address] Type of Urine collection method Random Urine Normal [facility] Comment on above: Performed By: #### 1 [id number] #### [facility] [address] [place] [address] Urobilinogen Qn (U) 0.2 {Tyrell'U}/dL Normal 0.0-1.0 [facility] Comment on above: Performed By: #### 1 [id number] #### [facility] [address] [place] [address] WBC Auto Ql (U) Negative Normal Negative [facility] Comment on above: Performed By: #### 1 [id number] #### [facility] [address] [place] [address] WBC LM.HPF (Urine sed) [#/Area] 0-5 Normal 0-5 [facility] Comment on above: Performed By: #### 1 [id number] #### [facility] [address] [place] [address] Urology Office/Clinic Noteon 12-09-2022 Urology Office/Clinic Note Chief Complaint 1 year follow up w/ Renal US HPI Staff 1yr Renal US DX: Microscopic Hematuria, Renal Cyst & Leaking of Urine. NEG FISH/Cytology 06/16/21 YAMILKA 12/02/22 PVR today 25ml. Dysuria: denies pain and burning Incomplete bladder emptying: yes Hematuria: denies visible blood Frequency: every 2-3 hours Urgency: sometimes Nocturia: denies Stream: denies hesitancy, medium stream Leaking: sometimes Post void dripping: sometimes Wearing pads/ Depends: denies Urge incontinence: yes Stress incontinence: denies Incontinence without Sensory Awareness: denies Abdominal pain: denies Flank pain: denies History of Present Illness staff HPI reviewed and agree. Review of Systems PHQ Score Initial Depression Screen Score: 0 no fever, chills, malaise, myalgia. no rash/lesions. no chest pain, palpitations, or SOB. no abdominal pain, nausea, vomiting. no unilateral calf swelling, redness, pain Physical Exam Vitals & Measurements HR: 89(Peripheral) BP: 125/77 HT: 60 in HT: 152 cm WT: 62.0 kg WT: 136.4 lb BMI: 26.84 General: nontoxic, NAD Mouth: moist mucosa Lungs: normal respiratory effort Cardio: regular rate, good distal perfusion Abdomen: nondistended, no suprapubic distention or tenderness, no CVA tenderness Neurologic: Grossly normal Skin: No rashes or suspicious lesions Assessment/Plan 1. Asymptomatic microscopic hematuria (R31.21: Asymptomatic microscopic hematuria) FISH/Cytology 06/16/21 - negative Outside PCP records with low microhematuria, workup including cystoscopy, urine cytology and CT urogram from [facility] 06/10/21 noted no filling defects or hydro to explain hematuria. 3mm right renal cortex hypodensity noted, too small to characterize, [address] scan recommended for further evaluation/stability urine. Prior UA small blood. UA today shows moderate blood. Pt denies any visible blood in her urine. Will send urine for micro UA and cx for monitoring. recent neg workup, no additional eval needed at this time. 2. Renal cyst (N28.1: Cyst of kidney, acquired) CT 11/22/21 - kidneys are grossly normal without calculi or hydronephrosis. Previously noted right renal cysts are not seen on this examination which may be due to the lack of contrast. YAMILKA 12/02/22 - 3 mm nonobstructing Lt renal calculus, 6 mm cyst involving the Rt kidney looks stable and benign. No need for repeat imaging. 3. Leaking of urine (R32: Unspecified urinary incontinence) Pt stated when she drinks a lot of fluid she starts to leak before she can make it to the bathroom. Pt stated this problem does not happen all the time, and that this is not a bothersome problem where she feels like she needs medication, or any procedure at this time. Kegel exercises was explained to pt, and also advised her that we offer physical therapy also to help with her symptoms. The instruction sheet to explain the proper way of doing the pelvic exercises was given to pt. Advised pt that she does not wear protection. Does not feel sx bothersome enough to warrant tx. Pt is to call if this become more bothersome. 4. Feeling of incomplete bladder emptying (R39.14: Feeling of incomplete bladder emptying) Pt states she feels like she does not empty all of the way. PVR today was 25 mL. 5. Aspirin long-term use (Z79.82: senior care (current) use of aspirin) Risk of bleeding with procedures. Follow up in 1 yr. All questions/concerns were discussed. Pt to call the office if she encounters any issues prior. Pt acknowledges understanding. Follow-up With When Contact Information SADAF WESTON PA-C, URL In 1 day [address] [place] [address] Additional Instructions: Patient Education Hematuria, Adult Documentation recorded by the scribe María Samuel accurately reflects the services(s) I performed and decisions made by me. Authenticated by Sadaf Weston PA-C on 12/09/2022 16:21:44. I, María Samuel, personally scribed for Sadaf Weston PA-C on 12/09/2022 15:13:28. . Problem List/Past Medical History Ongoing Aspirin long-term use Asymptomatic microscopic hematuria Feeling of incomplete bladder emptying Leaking of urine Renal cyst Historical No qualifying data Procedure/Surgical History Cystoscopy (06/16/2021), Colonoscopy, Colonoscopy, Hysterectomy. Medications amLODIPine 5 mg Tab, Oral, Daily aspirin 81 mg oral capsule, Oral, q4hr atorvastatin 20 mg Tab, Oral, Daily Dulcolax Stool Softener, Oral, BID meloxicam 15 mg oral tablet, Oral, Daily metformin 500 mg Tab, Oral, BID Vitamin D3 Allergies Bactrim (Other) amoxicillin (Rash) cefdinir (Rash) lisinopril (Cough) Social History Tobacco Never (less than 100 in lifetime) Tobacco Use:. Never Smokeless Tobacco Use:., 12/09/2022 Immunizations Vaccine Date Status Comments SARS-CoV-2 mRNA (tobeatriz 5y-11y) vac - Not Given Postpone due to refusal (more content not included)... Normal [facility] Comment on above: Result Comment: Elec tronically Signed By: SADAF WESTON PA-C\.br\Date and Time Signed: 12/09/22 16:21 EDT\.br\Electronically Co-Signed By: María Samuel.br\Date and Time Co-Signed: 12/09/22 15:13 EDT Reminderson 12-01-2022 Reminders - From: Divya Pitt To: EU - Recalls Lue; Sent: 11/26/2021 09:02:57 EDT Show up: 11/05/2022 09:02:00 EDT Subject: renal US Reminder/Recall schedule prior to patients 12/02/2022 office visit Renal US scheduled for 12/02/22 @ [facility] Follow up has been rescheduled with VASILIY 12/09/22. Normal [facility] MG MAMM RT DIAG FUon 023 MG MAMM RT DIAG FU Patient: PEARL HAWKINS Exam Date: 10/05/2022 : 1950 Gender:F Ordering : DR ELISHA CARRASQUILLO M.D. Admission #: [id number] Family : Order #: [id number] CLICK HERE TO VIEW EXAM RADIOLOGY REPORT PROCEDURE: MAMMOGRAM RIGHT DIAGNOSTIC DIGITAL FOLLOW UP, 10/05/2022, 07:17 ULTRASOUND BREAST RIGHT LIMITED, 10/05/2022, 07:40 COMPARISON: MG MAMM SCREEN 3D SALMA CAD, 09/22/2022. MG MAMM SCREEN SALMA W CAD, 09/17/2021. MG MAMM SCREEN SALMA W CAD, 07/16/2020. INDICATIONS: Abnormal findings on diagnostic imaging of breast Calculator Name NCI Breast Cancer Risk Assessment Tool 5 Year Breast Cancer Risk 1.50% Lifetime Breast Cancer Risk 4.00% Personal Breast Cancer No Personal Ovarian Cancer No Treatments None Family Cancers None LOCATION: [facility] BREAST COMPOSITION: Heterogeneously dense,which may obscure small masses. FINDINGS: DIAGNOSTIC CATEGORY 2--BENIGN FINDING: RIGHT BREAST: Spot magnification and tomographic views demonstrate asymmetric fibroglandular tissue within the anterior breast upper outer quadrant, approximately 9 o'clock; no appreciable mass or architectural distortion. Ultrasound evaluation demonstrates a questionable small lymph node. No suspicious findings. RECOMMENDATIONS: ROUTINE MAMMOGRAM AND CLINICAL EVALUATION IN 12 MONTHS. PLEASE NOTE: A NORMAL MAMMOGRAM DOES NOT EXCLUDE THE POSSIBILITY OF BREAST CANCER. A CLINICALLY SUSPICIOUS PALPABLE LUMP SHOULD BE BIOPSIED. Dictated by: Cipriano Menon M.D. on 10/05/2022 at 08:02 Approved by: Cipriano Menon M.D. on 10/05/2022 at 08:35 Normal [facility] US BREAST RIGHT LIMITEDon US BREAST RIGHT LIMITED Patient: PEARL HAWKINS Exam Date: 10/05/2022 : 1950 Gender:F Ordering : DR ELISHA CARRASQUILLO M.D. Admission #: [id number] Family : Order #: [id number] CLICK HERE TO VIEW EXAM RADIOLOGY REPORT PROCEDURE: MAMMOGRAM RIGHT DIAGNOSTIC DIGITAL FOLLOW UP, 10/05/2022, 07:17 ULTRASOUND BREAST RIGHT LIMITED, 10/05/2022, 07:40 COMPARISON: MG MAMM SCREEN 3D SALMA CAD, 09/22/2022. MG MAMM SCREEN SALMA W CAD, 09/17/2021. MG MAMM SCREEN SALMA W CAD, 07/16/2020. INDICATIONS: Abnormal findings on diagnostic imaging of breast Calculator Name NCI Breast Cancer Risk Assessment Tool 5 Year Breast Cancer Risk 1.50% Lifetime Breast Cancer Risk 4.00% Personal Breast Cancer No Personal Ovarian Cancer No Treatments None Family Cancers None LOCATION: [facility] BREAST COMPOSITION: Heterogeneously dense,which may obscure small masses. FINDINGS: DIAGNOSTIC CATEGORY 2--BENIGN FINDING: RIGHT BREAST: Spot magnification and tomographic views demonstrate asymmetric fibroglandular tissue within the anterior breast upper outer quadrant, approximately 9 o'clock; no appreciable mass or architectural distortion. Ultrasound evaluation demonstrates a questionable small lymph node. No suspicious findings. RECOMMENDATIONS: ROUTINE MAMMOGRAM AND CLINICAL EVALUATION IN 12 MONTHS. PLEASE NOTE: A NORMAL MAMMOGRAM DOES NOT EXCLUDE THE POSSIBILITY OF BREAST CANCER. A CLINICALLY SUSPICIOUS PALPABLE LUMP SHOULD BE BIOPSIED. Dictated by: Cipriano Menon M.D. on 10/05/2022 at 08:02 Approved by: Cipriano Menon M.D. on 10/05/2022 at 08:35 Normal [facility] MAMM SCREEN 3D SALMA CADon 09-22-2022 MG MAMM SCREEN 3D SALMA CAD Patient: PEARL HAWKINS Exam Date: 09/22/2022 : 1950 Gender:F Ordering : DR ELISHA CARRASQUILLO M.D. Admission #: [id number] Family : Order #: [id number] CLICK HERE TO VIEW EXAM RADIOLOGY REPORT PROCEDURE: MAMMOGRAM SCREENING 3D BILATERAL CAD COMPARISON: MG MAMM SCREEN SALMA W CAD, 07/16/2020. MG MAMM SCREEN SALMA W CAD, 09/17/2021. INDICATIONS: Screening mammography Calculator Name NCI Breast Cancer Risk Assessment Tool 5 Year Breast Cancer Risk 1.50% Lifetime Breast Cancer Risk 4.00% Personal Breast Cancer No Personal Ovarian Cancer No Treatments None Family Cancers None LOCATION: [facility] BREAST COMPOSITION: Heterogeneously dense,which may obscure small masses. FINDINGS: DIAGNOSTIC CATEGORY 0--INCOMPLETE: NEED ADDITIONAL IMAGING EVALUATION. Breasts are stable in overall size.Scattered benign-appearing calcifications are present. Scattered benign-appearing lymph nodes are present. Scattered benign-appearing nodules are present. RIGHT BREAST: Increase conspicuity of a 1.5 x 1.1 cm lobular nodule upper quadrant, anterior breast. Spot imaging and ultrasound follow-up is recommended. LEFT BREAST: No significant suspicious finding. RECOMMENDATIONS: ADDITIONAL MAMMOGRAPHIC VIEWS REQUIRED: RIGHT BREAST - spot compression ULTRASOUND: RIGHT BREAST PLEASE NOTE: A NORMAL MAMMOGRAM DOES NOT EXCLUDE THE POSSIBILITY OF BREAST CANCER. A CLINICALLY SUSPICIOUS PALPABLE LUMP SHOULD BE BIOPSIED. Dictated by: Bryce Hooker MD on 09/23/2022 at 08:45 Approved by: Bryce Hooker MD on 09/23/2022 at 08:48 Normal [facility] CBC AUTO DIFFon 08-12-2022 BASO # 0.0 103/ul Normal 0.0-0.1 [facility] Comment on above: Performed By: #### C BC ####[facility] [address] [place], [place] [address]Dr. Silvino Clifton Basophils/100 WBC (Bld) 0.7 % Normal 0.2-2.0 [facility] Comment on above: Performed By: #### C BC ####[facility] [address] [place], [place] [address]Dr. Silvino Clifton EO # 0.1 103/ul Normal 0.0-0.7 [facility] Comment on above: Performed By: #### C BC ####[facility] [address] [place], [place] [address]Dr. Silvino Clifton Eosinophils/100 WBC (Bld) 2.1 % Normal 0.9-7.0 [facility] Comment on above: Performed By: #### C BC ####[facility] [address] [place], [place] [address]Dr. Silvino Clifton Erythrocyte distribution width (RBC) [Ratio] 12.3 % Normal 11.0-15.0 [facility] Comment on above: Performed By: #### C BC ####[facility] [address] [place], [place] [address]Dr. Silvino Clifton Hematocrit (Bld) [Volume fraction] 38.2 % Normal 36.0-48.0 [facility] Comment on above: Performed By: #### C BC ####[facility] [address] [place] [address]Dr. Silvino Clifton Hemoglobin (Bld) [Mass/Vol] 12.8 g/dL Normal 12.0-16.0 [facility] Comment on above: Performed By: #### C BC ####[facility] [address] [place] [address]Dr. Silvino Clifton IG # 0.02 10e3/ul Normal 0.00-0.03 [facility] Comment on above: Performed By: #### C BC ####[facility] [address] [place], [place] [address]Dr. Silvino Etienne IG % 0.3 % Normal 0.0-0.5 [facility] Comment on above: Performed By: #### C BC ####[facility] [address] [place], [place] [address]Dr. Silvino Clifton LYMPH # 2.2 103/ul Normal 1.2-3.8 [facility] Comment on above: Performed By: #### C BC ####[facility] [address] [place], [place] [address]Dr. Suzyoriana Clifton Lymphocytes/100 WBC (Bld) 35.4 % Normal 20.5-60.0 [facility] Comment on above: Performed By: #### C BC ####[facility] [address] [place], [place] [address]Dr. Suzyoriana Clifton MANUAL DIFF REQ NO Normal [facility] Comment on above: Performed By: #### C BC ####[facility] [address] [place], [place] [address]Dr. Silvino Etienne MCH (RBC) [Entitic mass] 28.0 pg Normal 26.7-34.0 [facility] Comment on above: Performed By: #### C BC ####[facility] [address] [place], [place] [address]Dr. Silvino Etienne MCHC (RBC) [Mass/Vol] 33.5 g/dL Normal 29.9-35.2 [facility] Comment on above: Performed By: #### C BC ####[facility] [address] [place], [place] [address]Dr. Silvino Clifton MCV (RBC) [Entitic vol] 83.6 fL Normal 81.0-99.0 [facility] Comment on above: Performed By: #### C BC ####[facility] [address] [place], [place] [address]Dr. Silvino Clifton MONO # 0.4 103/ul Normal 0.3-0.8 [facility] Comment on above: Performed By: #### C BC ####[facility] [address] [place], [place] [address]Dr. Silvino Etienne Monocytes/100 WBC (Bld) 7.2 % Normal 1.7-12.0 [facility] Comment on above: Performed By: #### C BC ####[facility] [address] [place], [place] [address]Dr. Silvino Clifton NEUT # 3.3 103/ul Normal 1.4-6.5 [facility] Comment on above: Performed By: #### C BC ####[facility] [address] [place], [place] [address]Dr. Silvino Etienne Neutrophils/100 WBC (Bld) 54.3 % Normal 43.0-75.0 [facility] Comment on above: Performed By: #### C BC ####[facility] [address] [place], [place] [address]Dr. Silvino Etienne Platelet mean volume (Bld) [Entitic vol] 11.3 fL Normal 9.5-13.5 [facility] Comment on above: Performed By: #### C BC ####[facility] [address] [place], [place] [address]Dr. Silvino Etienne PLT 208 103/ul Normal 150-450 [facility] Comment on above: Performed By: #### C BC ####[facility] [address] [place], [place] [address]Dr. Suzyoriana Etienne RBC 4.57 106/ul Normal 4.20-5.40 [facility] Comment on above: Performed By: #### C BC ####[facility] [address] [place], [place] [address]Dr. Silvino Clifton WBC 6.2 103/ul Normal 4.0-11.[address] [facility] Comment on above: Performed By: #### C BC ####[facility] [address] [place] [id number]. Silvino Clifton GLYCOHEMOGLOBIN A1Con 2022 ADA RECOMMENDATION SEE BELOW Normal [facility] Comment on above: Result Comment: ADA RECOMMENDED LIMIT 4.0 - 6.0 ADA THERAPEUTIC TARGET < 7.0 ACTION SUGGESTED > 7.0 Performed By: #### A 1C #### [facility] [address] [address] [address] Silvino Clifton Glucose [Mass/Vol] 169 mg/dL Normal [facility] Comment on above: Performed By: #### A 1C #### [facility] [address] [address] [address] Silvino Clifton HbA1c (Bld) [Mass fraction] 7.5 % Critically high 4.5-6.[address] [facility] Comment on above: Performed By: #### A 1C #### [facility] [address] [address] [address] Silvino Clifton LIPID PROFILEon 08-12-2022 CHOL-HDL RATIO NORM SEE BELOW Normal [facility] Comment on above: Result Comment: 3.3 - 4.4 LOW RISK 4.4 - 7.1 AVERAGE RISK 7.1 - 11.0 MODERATE RISK >11.0 HIGH RISK Performed By: #### M G, CMP, LIPID ####[facility] [address] [place], [place] [address]Dr. Silvino Clifton Cholesterol [Mass/Vol] 185 mg/dL Normal <=[address] [facility] Comment on above: Performed By: #### M G, CMP, LIPID ####[facility] [address] [place] [id number]. Silvino Clifton Cholesterol in HDL [Mass/Vol] 58 mg/dL Normal 40-[address] [facility] Comment on above: Performed By: #### M G, CMP, LIPID ####[facility] [address] [place] [id number]. Silvino Clifton Cholesterol in LDL [Mass/Vol] 95.4 mg/dL Normal [facility] Comment on above: Performed By: #### Hang Porter, CMP, LIPID ####[facility] [address] [place] [address]Dr. Silvino Clifton Cholesterol.total/Ch olesterol in HDL [Mass ratio] 3.2 {ratio} Normal [facility] Comment on above: Performed By: #### Hang Porter, CMP, LIPID ####[facility] [address] [place] [phone]. Silvino Clifton HDL NORMAL > or = 60 mg/dl - LO W CARDIOVASCULAR RISK <40 mg/dl - HIGH CARDIOVASCULAR RISK Normal [facility] Comment on above: Performed By: #### Hang Porter, CMP, LIPID ####[facility] [address] [place] [address]Dr. Silvino Clifton LDL CALC NORMAL SEE BELOW Normal [facility] Comment on above: Result Comment: <100 mg/dl OPTIMAL 100 - 129 mg/dl NEAR OR ABOVE OPTIMAL 130 - 159 mg/dl BORDERLINE HIGH 160 - 189 mg/dl HIGH >190 mg/dl VERY HIGH Performed By: #### Hang Porter, CMP, LIPID ####[facility] [address] [place] [address]Dr. Silvino Clifton Triglyceride [Mass/Vol] 158 mg/dL Critically high <=150 [facility] Comment on above: Performed By: #### Hang Porter, CMP, LIPID ####[facility] [address] [place] [address]Dr. Silvino Clifton VLDL CALC 31.6 mg/dL Normal [facility] Comment on above: Performed By: #### Hang Porter, CMP, LIPID ####[facility] [address] [place] [id number]. Silvino Clifton MAGNESIUMon 08-12-2022 Magnesium [Mass/Vol] 1.6 mg/dL Critically low 1.8-2.4 [facility] Comment on above: Performed By: #### Hang Porter, CMP, LIPID ####[facility] [address] [place] [address]Dr. Silvino Clifton PROF 14(COMP METB)on 023 Albumin [Mass/Vol] 4.0 g/dL Normal 3.4-5.0 [facility] Comment on above: Performed By: #### M G, CMP, LIPID ####[facility] [address] [place] [address]Dr. Silvino Clifton Albumin/Globulin [Mass ratio] 1.2 {ratio} Normal [facility] Comment on above: Performed By: #### M G, CMP, LIPID ####[facility] [address] [place] [address]Dr. Silvino Clifton ALP [Catalytic activity/Vol] 61 U/L Normal 46-[address] [facility] Comment on above: Performed By: #### M G, CMP, LIPID ####[facility] [address] [place] [address]Dr. Silvino Clifton ALT [Catalytic activity/Vol] 17 U/L Normal 14-[address] [facility] Comment on above: Performed By: #### M G, CMP, LIPID ####[facility] [address] [place] [address]Dr. Silvino Clifton Anion gap [Moles/Vol] 11.8 mmol/L Normal [facility] Comment on above: Performed By: #### M G, CMP, LIPID ####[facility] [address] [place] [address]Dr. Silvino Clifton AST [Catalytic activity/Vol] 16 U/L Normal 15-[address] [facility] Comment on above: Performed By: #### M G, CMP, LIPID ####[facility] [address] [place] [address]Dr. Silvino Clifton Bilirubin [Mass/Vol] 0.4 mg/dL Normal 0.2-1.0 [facility] Comment on above: Performed By: #### M G, CMP, LIPID ####[facility] [address] [place] [address]Dr. Silvino Clifton Calcium [Mass/Vol] 9.3 mg/dL Normal 8.5-10.1 [facility] Comment on above: Performed By: #### M G, CMP, LIPID ####[facility] [address] [place] [id number]. Silvino Clifton Chloride [Moles/Vol] 106 mmol/L Normal 98-107 [facility] Comment on above: Performed By: #### M G, CMP, LIPID ####[facility] [address] [place] [address]Dr. Silvino Clifton CO2 [Moles/Vol] 28.3 mmol/L Normal 21.0-32.0 [facility] Comment on above: Performed By: #### M G, CMP, LIPID ####[facility] [address] [place] [address]Dr. Suzyoriana Clifton Creatinine [Mass/Vol] 0.72 mg/dL Normal 0.55-1.[address] [facility] Comment on above: Performed By: #### M G, CMP, LIPID ####[facility] [address] [place] [address]Dr. Suzyoriana Clifton EGFR-AF SALVADOREAN >60 Normal >=60 [facility] Comment on above: Performed By: #### M G, CMP, LIPID ####[facility] [address] [place] [address]Dr. Silvino Etienne EGFR-NON AF SALVADOREAN >60 Normal >=[address] [facility] Comment on above: Performed By: #### M G, CMP, LIPID ####[facility] [address] [place] [address]Dr. Silvino Clifton Globulin (S) [Mass/Vol] 3.3 g/dL Normal [facility] Comment on above: Performed By: #### M G, CMP, LIPID ####[facility] [address] [place] [address]Dr. Silvino Clifton Glucose [Mass/Vol] 167 mg/dL Critically high 74-[address] [facility] Comment on above: Performed By: #### M G, CMP, LIPID ####[facility] [address] [place] [address]Dr. Silvino Clifton Potassium [Moles/Vol] 4.1 mmol/L Normal 3.5-5.[address] [facility] Comment on above: Performed By: #### M G, CMP, LIPID ####[facility] [address] [place] [id number]. Silvino Clifton Protein [Mass/Vol] 7.3 g/dL Normal 6.4-8.2 [facility] Comment on above: Performed By: #### M G, CMP, LIPID ####[facility] [address] [place] [phone]. Silvino Clifton Sodium [Moles/Vol] 142 mmol/L Normal 136-145 [facility] Comment on above: Performed By: #### M G, CMP, LIPID ####[facility] [address] [place] [address]Dr. Silvino Clifton Urea nitrogen [Mass/Vol] 13.0 mg/dL Normal 7.0-18.[address] [facility] Comment on above: Performed By: #### M G, CMP, LIPID ####[facility] [address] [place] [address]Dr. Silvino Clifton Urea nitrogen/Creatinine [Mass ratio] 18.1 mg/mg Normal [facility] Comment on above: Performed By: #### M G, CMP, LIPID ####[facility] [address] [place] [id number]. Silvino Clifton XR LSPINE 2_3 VIEWSon 2022 XR LSPINE 2_3 VIEWS EXAMINATION: XR LSPI NE 2_3 VIEWS HISTORY: Low back pain in right hip pain COMPARISON: No relevant comparison available. FINDINGS: BONES: Mild degenerative facet arthropathy L4-5, L5-S1. No fracture, spondylolisthesis, bone lesion. DISC SPACES: Mild narrowing L5-S1. PARASPINOUS: Negative. No paraspinous abnormality is seen. OTHER: Negative. IMPRESSION: 1. Mild degenerative changes of lower lumbar spine. 2. No appreciable acute abnormality. Electronically authenticated by: CIPRIANO MENON Date: 2022-08-12 09:[address] [facility] XR DEXA BONE DENSITYon 08-11 XR DEXA BONE DENSITY EXAMINATION: XR DEX A BONE DENSITY, 08/11/2022 1:04 PM EDT HISTORY: Menopause present COMPARISON: None. TECHNIQUE: Dual-energy X-ray absorptiometry (DEXA) bone density study performed for the axial skeleton. FINDINGS: SPINE ANALYSIS: Average bone mineral density is 0.993 g/cm2. T-score (standard deviation relative to young adult mean): -1.7 . -2.7% change since prior study. HIP ANALYSIS: Lowest bone mineral density is within the left femoral neck, 0.798 g/cm2. T-score (standard deviation relative to young adult mean): -1.7 . -13.0% change since prior study. IMPRESSION: [employer] Classification: Osteopenia - Moderate Fracture Risk Electronically authenticated by: CIPRIANO MENON Date: 2022-08-11 13:[address] [facility] CT CSPINE WO CONon CT CSPINE WO CON EXAM: CT CSPINE WO C ON CLINICAL INDICATION: UNSPECIFIED INJURY OF HEAD, INITIAL ENCOUNTER COMPARISON: Cervical spine radiograph 11/20/2020. TECHNIQUE: Axial CT images of the cervical spine were obtained without intravenous contrast. Coronal and sagittal reformatted images were also reviewed. Dose reduction techniques were achieved by using automated exposure control and/or adjustment of mA and/or kV according to patient size and/or use of iterative reconstruction technique. FINDINGS: Trauma: No fracture, traumatic malalignment, facet dislocation, or discrete epidural hemorrhage. Alignment: Normal craniocervical and cervicothoracic junctions. Straightening of the physiologic cervical lordosis likely relates at least in part to patient positioning. Vertebral Body Heights: Maintained. Spondylotic Changes: Multilevel spondylotic changes include varying degrees of intervertebral disc height loss, osteophytic ridging, endplate sclerosis, and facet/uncovertebral joint hypertrophy. Soft Tissues: Normal. Other: Clear visualized lung apices. Airway is patent. IMPRESSION: 1. No cervical spine fracture or traumatic malalignment. 2. Multilevel spondylotic changes. Electronically authenticated by: JOSE M JESUS Date: 2022-03-09 11:40 Normal [facility] CT HEAD WO CONon 03-09-2022 CT HEAD WO CON EXAM: CT HEAD WO CON CLINICAL INDICATION: HEADACHE COMPARISON: CT head 11/10/2021 TECHNIQUE: Axial CT images of the brain were obtained without contrast. Coronal and sagittal reformats were obtained. Dose reduction techniques were achieved by using automated exposure control and/or adjustment of mA and/or kV according to patient size and/or use of iterative reconstruction technique. FINDINGS: No intracranial hemorrhage, extra-axial fluid collection, hydrocephalus, midline shift, or acute large vessel territory infarction. No other mass effect. Patchy periventricular and subcortical hypoattenuation is likely on the basis of chronic microvascular angiopathic changes. Mild symmetric global volume loss without lobar predominance. Slight commensurate prominence of the ventricular system. Basal cisterns are patent. No calvarial fracture. Normal soft tissues. Paranasal sinuses and mastoid air cells are well-aerated. IMPRESSION: No acute intracranial process. No substantial change since 11/12/2021. Electronically authenticated by: JOSE M JESUS Date: 2022-03-09 11:[address] [facility] PAP ACOG PANEL 2: 30 to 65on 01-30-2022 . . Normal [facility] Comment on above: Performed By: #### [id number] ####[facility] [address] [place] [address]Dr. Silvino Clifton Age Gdln ACOG Testing Comment Normal [facility] Comment on above: Result Comment: <21 or >65 or no age provided Performed By: #### 4 [id number] ####[facility] [address] [place] [address]Dr. Silvino Clifton DIAGNOSIS: Comment Normal [facility] Comment on above: Result Comment: NEGA TIVE FOR INTRAEPITHELIAL LESION OR MALIGNANCY. CELLULAR CHANGES ASSOCIATED WITH ATROPHY ARE PRESENT. Performed By: #### 4 [id number] ####[facility] [address] [place] [address]Dr. Silvino Clifton Methodology: Comment Normal [facility] Comment on above: Result Comment: This liquid based ThinPrep(R) pap test was screened with the use of an image guided system. Performed By: #### 4 [id number] ####[facility] [address] [place], [place] [address]Dr. Silvino Clifton Note: Comment Normal [facility] Comment on above: Result Comment: The Pap smear is a screening test designed to aid in the detection of premalignant and malignant conditions of the uterine cervix. It is not a diagnostic procedure and should not be used as the sole means of detecting cervical cancer. Both false-positive and false-negative reports do occur. . Performed By: #### 4 [id number] ####[facility] [address] [place] [id number]. Silvino Clifton Performed by: Comment Normal [facility] Comment on above: Result Comment: Isabel Gong, Detention Attendant (ASCP) Performed By: #### 4 [id number] ####[facility] [address] [place] [id number]. Silvino Clifton Specimen adequacy: Comment Normal [facility] Comment on above: Result Comment: Sati sfactory for evaluation. Performed By: #### 4 [id number] ####[facility] [address] [place] [id number]. Silvino Clifton BASIC METABOLIC PANELon 07-0 BUN/CREATININE RATIO NOT APPLICABLE Normal 6-22 [facility] Comment on above: Order Comment: FASTI NG:YES FASTING: YES Performed By: #### 1 164, 496 #### [facility] [address], [address] [place] [address] Supervisor Spring Up: Scott Nichols MD Calcium [Mass/Vol] 9.6 mg/dL Normal 8.6-10.4 [facility] Comment on above: Order Comment: FASTI NG:YES FASTING: YES Performed By: #### 1 164, 496 #### [facility] [place] [address] Supervisor [place] Up: Scott Nichols MD Chloride [Moles/Vol] 104 mmol/L Normal 98-110 [facility] Comment on above: Order Comment: FASTI NG:YES FASTING: YES Performed By: #### 1 164, 496 #### [facility] [address], [address] [place] [address] Supervisor [place] Up: Scott Nichols MD CO2 [Moles/Vol] 31 mmol/L Normal 20-32 [facility] Comment on above: Order Comment: FASTI NG:YES FASTING: YES Performed By: #### 1 016, 496 #### [facility] [place] [address] Supervisor [place] Up: Scott Nichols MD Creatinine [Mass/Vol] 0.64 mg/dL Normal 0.60-0.93 [facility] Comment on above: Order Comment: FASTI NG:YES FASTING: YES Result Comment: For patients >49 years of age, the reference limit for Creatinine is approximately 13% higher for people identified as -Chilean. Performed By: #### 1 0165, 496 #### [facility] [place] [address] Supervisor [place] Up: Scott Nichols MD eGFR NON-AFR. SALVADOREAN 90 mL/min/1.73m2 Normal > OR = 60 [facility] Comment on above: Order Comment: FASTI NG:YES FASTING: YES Performed By: #### 1 0165, 496 #### [facility] [place] [address] Supervisor [place] Up: Scott Nichols MD GFR/1.73 sq M.predicted among blacks MDRD (S/P/Bld) [Vol rate/Area] 105 mL/min/{1.73_m2} Normal > OR = 60 [facility] Comment on above: Order Comment: FASTI NG:YES FASTING: YES Performed By: #### 1 0165, 496 #### [facility] [place] [address] Supervisor [place] Up: Scott Nichols MD Glucose [Mass/Vol] 136 mg/dL High 65-99 [facility] Comment on above: Order Comment: FASTI NG:YES FASTING: YES Result Comment: Fasting reference interval For someone without known diabetes, a glucose value >125 mg/dL indicates that they may have diabetes and this should be confirmed with a follow-up test. Performed By: #### 1 0165, 496 #### [facility] [place] [address] Supervisor [place] Up: Scott Nichols MD Potassium [Moles/Vol] 4.3 mmol/L Normal 3.5-5.3 [facility] Comment on above: Order Comment: FASTI NG:YES FASTING: YES Performed By: #### 1 0165, 496 #### [facility] [address], [address] [place] [address] Supervisor [place] Up: Scott Nichols MD Sodium [Moles/Vol] 141 mmol/L Normal 135-146 [facility] Comment on above: Order Comment: FASTI NG:YES FASTING: YES Performed By: #### 1 0165, 496 #### [facility] [address], [address] [place] [address] Supervisor Spring Up: Scott Nichols MD Urea nitrogen [Mass/Vol] 9 mg/dL Normal 7-25 [facility] Comment on above: Order Comment: FASTI NG:YES FASTING: YES Performed By: #### 1 0165, 496 #### [facility] [address], [address] [place] [address] Supervisor Spring Up: Scott Nichols MD HEMOGLOBIN A1con 11-27-2021 HEMOGLOBIN A1c 7.4 % of total Hgb High <5.7 [facility] Comment on above: Result Comment: For someone without known diabetes, a hemoglobin A1c value of 6.5% or greater indicates that they may have diabetes and this should be confirmed with a follow-up test. For someone with known diabetes, a value <7% indicates that their diabetes is well controlled and a value greater than or equal to 7% indicates suboptimal control. A1c targets should be individualized based on duration of diabetes, age, comorbid conditions, and other considerations. Currently, no consensus exists regarding use of hemoglobin A1c for diagnosis of diabetes for children. Performed By: #### 1 0165, 496 #### [facility] [address], [address] [place] [address] Supervisor [place] Up: Scott Nichols MD URINALYSISOrdered By: Aggie Girno on 11-26-2021 Bilirubin Ql (U) Negative (11/26/21 10:54 AM) Normal Negative [facility] UA Auto SS Clarity (U) Clear (11/26/21 10:54 AM) Normal Clear [facility] UA Auto SS Color (U) Yellow (11/26/21 10:54 AM) Normal Yellow [facility] UA Auto SS Epithelial cells.squamous LM.HPF (Urine sed) [#/Area] 0-2 /HPF Normal 0-2/HPF [facility] Auto SS Glucose Test strip (U) [Mass/Vol] Negative (11/26/21 10:54 AM) Normal Negative [facility] UA Auto SS Hemoglobin Ql (U) 1+ *ABN* (11/26/21 10:54 AM) Invalid Interpretation Code Negative [facility] UA Auto SS Ketones (U) [Mass/Vol] Negative (11/26/21 10:54 AM) Normal Negative [facility] Auto SS [place].plasma/[place] um.RBC (Bld) [Mass ratio] 0-3 /HPF Normal 0-3/HPF [facility] Auto SS Nitrite Ql (U) Negative (11/26/21 10:54 AM) Normal Negative [facility] UA Auto SS pH (U) 6.5 *NA* (11/26/21 10:54 AM) Invalid Interpretation Code 5.0 - 9.0 [facility] Auto SS Protein (U) [Mass/Vol] Negative (11/26/21 10:54 AM) Normal Negative [facility] UA Auto SS Specific gravity (U) [Rel density] <=1.005 *NA* (11/26/21 10:54 AM) Invalid Interpretation Code 1.005 - 1.030 [facility] Auto SS UA Spec Desc Clean Catch (11/26/21 10:54 AM) Normal [facility] UA Auto SS Urobilinogen Qn (U) [id number] {Tyrell'U}/dL Normal 0.0 - 1.0 EU/dL [facility] Auto SS WBC Auto Ql (U) Negative (11/26/21 10:54 AM) Normal Negative [facility] Auto SS WBC LM.HPF (Urine sed) [#/Area] 0-5 /HPF Normal 0-5/HPF [facility] Auto SS CT ABD/PELVIS WO CONon 11-24 CT ABD/PELVIS WO CON EXAM: CT ABDOMEN AN D PELVIS WITHOUT CONTRAST DATED 11/22/2021 10:22 AM EDT HISTORY: 71 year-old female with no complaints currently. Hematuria reported. COMPARISON STUDY: 06/10/2021. TECHNIQUE: Multidetector spiral CT of the abdomen and pelvis was performed from lung bases to pubic symphysis. Imaging was performed without IV contrast. Axial, coronal and sagittal multiplanar reformats were obtained from the axial data set by the technologist. Dose reduction techniques were achieved by using automated exposure control and/or adjustment of mA and/or kV according to patient size and/or use of iterative reconstruction technique. FINDINGS: Evaluation of solid organs is limited due to lack of intravenous contrast use. Lung Bases: 7 mm groundglass nodular opacity at the right lung base is again appreciated posteriorly. This appears similar to the previous study. Liver: The liver is normal in size. There is again noted to be a somewhat ill-defined area of hypoattenuation in the hepatic parenchyma measuring up to approximately 2.2 cm which may represent an underlying cyst or hemangioma however vascular etiology cannot be entirely excluded. This does not appear changed from the previous study. A hemangioma is a consideration as slight peripheral enhancement was suggested on the prior CT. Gallbladder and Biliary Tree: Unremarkable. Spleen: Unremarkable. Pancreas: The pancreas is grossly normal in appearance. Adrenal Glands: Unremarkable. Kidneys: Kidneys are grossly normal without calculi or hydronephrosis. Previously noted right renal cysts are not seen on this examination which may be due to lack of contrast. Bladder: Mild bladder thickening is not entirely excluded. Consider laboratory correlation for infection. Bowel: The stomach is grossly normal in appearance. Very small hiatal hernia may be present on image 36 of series 5 with no acute process identified. The appendix is normal in caliber. A large volume of stool is noted in the colon suggesting constipation. There is diverticulosis without diverticulitis identified. Probable underdistention accounting for mild thickening of the distal descending and sigmoid colon. Small fat-containing inguinal hernia defects bilaterally, right greater than left with no acute complication appreciated. Status-post hysterectomy. Phleboliths are seen in the pelvis. Lymphadenopathy: No mesenteric, retroperitoneal or periportal lymphadenopathy. There is a fat-containing ventral umbilical hernia defect on image 79 through 82 of series 3 with no definite acute complication appreciated at this level. Vasculature: The visualized abdominal aorta is normal in size and caliber. 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 Finding is poorly evaluated without contrast. Evaluation of abdominal and pelvic vessels is limited due to lack of intravenous contrast. Musculoskeletal: No aggressive focal bony lesions, acute fractures or dislocation. Stable degenerative changes are noted in the spine. IMPRESSION: No acute abdominal or pelvic findings. Mild bladder thickening for which laboratory correlation for infection is recommended. No nephroureterolithiasis or hydroureteronephrosis. Stable appearance of a 7 mm nodule at the right lung base. Nonspecific hypodense lesion in the right hepatic lobe. Probable aneurysm along the splenic artery on the left appears similar to the previous study however is poorly evaluated without contrast. Electronically authenticated by: LOBITO YEE Date: 2021-11-24 01:04 Normal [facility] CBC AUTO DIFFon 11-12-2021 BASO # 0.1 103/ul Normal 0.0-0.1 [facility] Comment on above: Performed By: #### C BC ####[facility] [address] [place] [address]Dr. Silvino Clifton Basophils/100 WBC (Bld) 0.6 % Normal 0.2-2.0 [facility] Comment on above: Performed By: #### C BC ####[facility] [address] [place], [place] [address]Dr. Silvino Clifton EO # 0.1 103/ul Normal 0.0-0.7 [facility] Comment on above: Performed By: #### C BC ####[facility] [address] [place], [place] [address]Dr. Silvino Clifton Eosinophils/100 WBC (Bld) 1.3 % Normal 0.9-7.0 [facility] Comment on above: Performed By: #### C BC ####[facility] [address] [place], [place] [address]Dr. Silvino Clifton Erythrocyte distribution width (RBC) [Ratio] 11.9 % Normal 11.0-15.0 [facility] Comment on above: Performed By: #### C BC ####[facility] [address] [place], [place] [address]Dr. Silvino Clifton Hematocrit (Bld) [Volume fraction] 37.6 % Normal 36.0-48.0 [facility] Comment on above: Performed By: #### C BC ####[facility] [address] [place], [place] [address]Dr. Silvino Clifton Hemoglobin (Bld) [Mass/Vol] 13.0 g/dL Normal 12.0-16.0 [facility] Comment on above: Performed By: #### C BC ####[facility] [address] [place] [id number]. Silvino Clifton IG # 0.04 10e3/ul Critically high 0.00-0.03 [facility] Comment on above: Performed By: #### C BC ####[facility] [address] [place] [id number]. Silvino Clifton IG % 0.5 % Normal 0.0-0.[address] [facility] Comment on above: Performed By: #### C BC ####[facility] [address] [place] [address]Dr. Silvino Clifton LYMPH # 1.5 103/ul Normal 1.2-3.8 [facility] Comment on above: Performed By: #### C BC ####[facility] [address] [place] [address]Dr. Silvino Clifton Lymphocytes/100 WBC (Bld) 18.9 % Critically low 20.5-60.[address] [facility] Comment on above: Performed By: #### C BC ####[facility] [address] [place] [address]Dr. Silvino Clifton MANUAL DIFF REQ NO Normal [facility] Comment on above: Performed By: #### C BC ####[facility] [address] [place] [id number]. Silvino Clifton MCH (RBC) [Entitic mass] 29.7 pg Normal 26.7-34.[address] [facility] Comment on above: Performed By: #### C BC ####[facility] [address] [place] [id number]. Silvino Clifton MCHC (RBC) [Mass/Vol] 34.6 g/dL Normal 29.9-35.2 [facility] Comment on above: Performed By: #### C BC ####[facility] [address] [place] [address]Dr. Silvino Clifton MCV (RBC) [Entitic vol] 85.8 fL Normal 81.0-99.[address] [facility] Comment on above: Performed By: #### C BC ####[facility] [address] [place] [id number]. Silvino Clifton MONO # 0.5 103/ul Normal 0.3-0.8 [facility] Comment on above: Performed By: #### C BC ####[facility] [address] [place] [id number]. Silvino Clifton Monocytes/100 WBC (Bld) 6.1 % Normal 1.7-12.0 [facility] Comment on above: Performed By: #### C BC ####[facility] [address] [place] [id number]. Silvino Clifton NEUT # 5.8 103/ul Normal 1.4-6.5 [facility] Comment on above: Performed By: #### C BC ####[facility] [address] [place], [place] [address]Dr. Silvino Clifton Neutrophils/100 WBC (Bld) 72.6 % Normal 43.0-75.0 [facility] Comment on above: Performed By: #### C BC ####[facility] [address] [place], [place] [id number]. Silvino Clifton Platelet mean volume (Bld) [Entitic vol] 10.7 fL Normal 9.5-13.5 [facility] Comment on above: Performed By: #### C BC ####[facility] [address] [place] [address]Dr. Silvino Clifton PLT 182 103/ul Normal 150-450 [facility] Comment on above: Performed By: #### C BC ####[facility] [address] [place], [place] [id number]. Silvino Clifton RBC 4.38 106/ul Normal 4.20-5.40 [facility] Comment on above: Performed By: #### C BC ####[facility] [address] [place] [id number]. Silvino Clifton WBC 8.0 103/ul Normal 4.0-11.0 [facility] Comment on above: Performed By: #### C BC ####[facility] [address] [place] [address]Dr. Silv[address] CT HEAD WO CONon 11-12-2021 CT HEAD WO CON E EXAM: CT HEAD WO C ON 11/12/2021 3:50 AM EDT OH001 CLINICAL STATEMENT: DISORIENTATION, UNSPECIFIED COMPARISON: 09/21/2020 TECHNIQUE: Multiple axial images were obtained of the brain without intravenous contrast. AEC is utilized. 2-D reconstructed images are provided. FINDINGS: The ventricles and the cortical sulci have normal size contour and symmetry. Small nonspecific bilateral frontal subcortical white matter hypodensities. There is no evidence for intracranial hemorrhage. There is no mass effect and or midline shift. No extra-axial collections. Limited evaluation of the orbits and the paranasal sinuses are normal. IMPRESSION: No acute intracranial abnormality. FOLLOW-UP: Follow-up as clinically indicated. Electronically authenticated by: RAYNE JOHNSON Date: 2021-11-12 05:04 Normal [facility] ER URINE PROFILEon 2 Bilirubin Ql (U) Negative Normal NEGATIVE [facility] Comment on above: Performed By: #### U MICRO, ERUR #### [facility] [address] [place] [address] Dr. Silvino Clifton Clarity (U) CLEAR Normal CLEAR [facility] Comment on above: Performed By: #### U MICRO, ERUR #### [facility] [address] [place] [address] Dr. Silvino Clifton Color (U) LT. YELLOW Normal YELLOW [facility] Comment on above: Performed By: #### U MICRO, ERUR #### [facility] [address] [place] [address] Dr. Silvino Clifton ERUAHD A micrscopic examina tion will be performed if indicated. Normal [facility] Comment on above: Performed By: #### U MICRO, ERUR #### [facility] [address] [place] [address] Dr. Silvino Clifton Glucose Ql (U) Negative Normal NEGATIVE [facility] Comment on above: Performed By: #### U MICRO, ERUR #### [facility] [address] [place] [address] Dr. Silvino Clifton Hemoglobin Ql (U) SMALL Abnormal NEGATIVE [facility] Comment on above: Performed By: #### U MICRO, ERUR #### [facility] [address] [place] [address] Dr. Silvino Clifton Ketones Ql (U) Negative Normal NEGATIVE [facility] Comment on above: Performed By: #### U MICRO, ERUR #### [facility] [address] [place] [address] Dr. Silvino Clifton LEUKOCYTES Negative Normal NEGATIVE [facility] Comment on above: Performed By: #### U MICRO, ERUR #### [facility] [address] [place] [address] [address] Silvino Clifton Nitrite Ql (U) Negative Normal NEGATIVE [facility] Comment on above: Performed By: #### U MICRO, ERUR #### [facility] [address] [place] [address] Dr. Silvino Clifton pH (U) 7.0 [pH] Normal 5-[address] [facility] Comment on above: Performed By: #### U MICRO, ERUR #### [facility] [address] [place] [address] Dr. Silvino Clifton SPEC GRAVITY <=1.005 Abnormal 1.005-<=1.[address] [facility] Comment on above: Performed By: #### U MICRO, ERUR #### [facility] [address] [place] [address] Dr. Silvino Clifton UA PROTEIN Negative Normal NEGATIVE/ TRACE [facility] Comment on above: Performed By: #### U MICRO, ERUR #### [facility] [address] [place] [address] [address] Silvino Clifton UR MICRO IND INDICATED Normal [facility] Comment on above: Performed By: #### U MICRO, ERUR #### [facility] [address] [place] [address] Dr. Silvino Clifton Urobilinogen Qn (U) 0.2 {Tyrell'U}/dL Normal 0.2 - 1. [address] [facility] Comment on above: Performed By: #### U MICRO, ERUR #### [facility] [address] [place] [address] [address] Silvino Clifton PROF 14(COMP METB)on 022 Albumin [Mass/Vol] 4.2 g/dL Normal 3.4-5.0 [facility] Comment on above: Performed By: #### C MP, HSTROPN ####[facility] [address] [place] [address]Dr. Silvino Clifton Albumin/Globulin [Mass ratio] 1.2 {ratio} Normal [facility] Comment on above: Performed By: #### C MP, HSTROPN ####[facility] [facility] [address] [place] [address]Dr. Silvino Clifton ALP [Catalytic activity/Vol] 65 U/L Normal 46-[address] [facility] Comment on above: Performed By: #### C MAGGIE, HSTROPN ####[facility] [address] [place] [address]Dr. Silvino Clifton ALT [Catalytic activity/Vol] 21 U/L Normal 14-[address] [facility] Comment on above: Performed By: #### C MAGGIE, HSTROPN ####[facility] [address] [place] [address]Dr. Silvino Clifton Anion gap [Moles/Vol] 12.5 mmol/L Normal [facility] Comment on above: Performed By: #### C MP, HSTROPN ####[facility] Tiiynxstxx[address] [place] [address]Dr. Silvino Clifton AST [Catalytic activity/Vol] 17 U/L Normal 15-[address] [facility] Comment on above: Performed By: #### C MP, HSTROPN ####[facility] Al[address]ne[address] [place] [address]Dr. Silvino Clifton Bilirubin [Mass/Vol] 0.5 mg/dL Normal 0.2-1.[address] [facility] Comment on above: Performed By: #### C MP, HSTROPN ####[facility] [address] [place] [address]Dr. Silvino Clifton Calcium [Mass/Vol] 9.0 mg/dL Normal 8.5-10.1 [facility] Comment on above: Performed By: #### C MAGGIE, HSTROPN ####[facility] [address] [place] [address]Dr. Silvino Clifton Chloride [Moles/Vol] 100 mmol/L Normal 98-107 [facility] Comment on above: Performed By: #### C MAGGIE, HSTROPN ####[facility] [address] [place] [address]Dr. Silvino Clifton CO2 [Moles/Vol] 26.8 mmol/L Normal 21.0-32.0 [facility] Comment on above: Performed By: #### C MAGGIE, HSTROPN ####[facility] [address] [place], [place] [address]Dr. Silvino Clifton Creatinine [Mass/Vol] 0.71 mg/dL Normal 0.55-1.[address] [facility] Comment on above: Performed By: #### C MAGGIE, HSTROPN ####[facility] [address] [place], [place] [address]Dr. Silvino Clifton EGFR-AF SALVADOREAN >60 Normal >=60 [facility] Comment on above: Performed By: #### C MAGGIE, HSTROPN ####[facility] [address] [place], [place] [address]Dr. Silvino Clifton EGFR-NON AF SALVADOREAN >60 Normal >=60 [facility] Comment on above: Performed By: #### C MAGGIE, HSTROPN ####[facility] [address] [place] [address]Dr. Suzyoriana Clifton Globulin (S) [Mass/Vol] 3.4 g/dL Normal [facility] Comment on above: Performed By: #### C MAGGIE, HSTROPN ####[facility] [address] [place] [address]Dr. Silvino Clifton Glucose [Mass/Vol] 185 mg/dL Critically high 74-[address] [facility] Comment on above: Performed By: #### C MAGGIE, HSTROPN ####[facility] [address] [place] [address]Dr. Silvino Clifton Potassium [Moles/Vol] 3.3 mmol/L Critically low 3.5-5.1 [facility] Comment on above: Performed By: #### C MAGGIE, HSTROPN ####[facility] [address] [place] [address]Dr. Silvino Clifton Protein [Mass/Vol] 7.6 g/dL Normal 6.4-8.2 [facility] Comment on above: Performed By: #### C MAGGIE, HSTROPN ####[facility] [address] [place] [address]Dr. Silvino Clifton Sodium [Moles/Vol] 136 mmol/L Normal 136-145 [facility] Comment on above: Performed By: #### C MAGGIE, HSTROPN ####[facility] [address] [place] [address]Dr. Silvino Clifton Urea nitrogen [Mass/Vol] 10.0 mg/dL Normal 7.0-18.0 [facility] Comment on above: Performed By: #### C MAGGIE, HSTROPN ####[facility] [address] [place] [address]Dr. Silvino Clifton Urea nitrogen/Creatinine [Mass ratio] 14.1 mg/mg Normal [facility] Comment on above: Performed By: #### C MAGGIE, HSTROPN ####[facility] [address] [place] [address]Dr. Silvino Clifton TROPONIN, HIGH SENSITIVITYon 11-12-2021 HSTROP 25.0 pg/mL Normal 4.0-51.3 [facility] Comment on above: Result Comment: CUT- OFF POINTS HAVE BEEN ESTABLISHED BASED ON THE FOURTH UNIVERSAL DEFINITIONS OF MYOCARDIAL INFARCTION. THE UPPER REFERENCE LIMIT (URL) OF TROPONIN, DEFINED THE 99TH PERCENTILE OF cTnI DISTRIBUTION IN A REFERENCE POPULATION, HAS BEEN CONFIRMED THE DECISION THRESHOLD FOR [place] DIAGNOSIS. Performed By: #### C MAGGIE, HSTROPN #### [facility] [address] [place] [address] [address] Silvino Clifton URINE MICROSCOPIC ONLYon BACTERIA NONE SEEN Normal NONE SEEN [facility] Comment on above: Performed By: #### U MICRO, ERUR #### [facility] [address] [place] [address] Dr. Silvino Clifton Bacteria identified Cx Nom (U) NOT INDICATED Normal [facility] Comment on above: Performed By: #### U MICRO, ERUR #### [facility] [address] [place] [address] Dr. Silvino lCifton CAST NONE SEEN Normal NONE SEEN [facility] Comment on above: Performed By: #### U MICRO, ERUR #### [facility] [address] [place] [address] Dr. Silvino Clifton Crystals LM Nom (Urine sed) NONE SEEN Normal NONE SEEN [facility] Comment on above: Performed By: #### U MICRO, ERUR #### [facility] [address] [place] [address] Dr. Silvino Clifton Epithelial cells LM Ql (Urine sed) RARE Normal NONE SEEN /RARE [facility] Comment on above: Performed By: #### U MICRO, ERUR #### [facility] [address] [place] [address] Dr. Silvino Clifton MUCOUS NONE SEEN Normal NONE SEEN [facility] Comment on above: Performed By: #### U MICRO, ERUR #### [facility] [address] [place] [address] Dr. Silvino Clifton RBC 2-5 Abnormal 0-2 [facility] Comment on above: Performed By: #### U MICRO, ERUR #### [facility] [address] [place] [address] Dr. Silvino Clifton WBC NONE SEEN Normal NONE SEEN [facility] Comment on above: Performed By: #### U MICRO, ERUR #### [facility] [address] [place] [address] Dr. Silvino Clifton CBC (INCLUDES DIFF/PLT)on Basophils (Bld) [#/Vol] 0.041 10*3/uL Normal 0-200 [facility] Comment on above: Performed By: #### 6 399, 622, 927 #### [facility] of [place] [address] Supervisor [place] [employer]: Scott Nichols MD Basophils/100 WBC (Bld) 0.7 % Normal [facility] Comment on above: Performed By: #### 6 399, 622, 927 #### [facility] of [place] [address] Supervisor [place] [employer]: Scott Nichols MD Eosinophils (Bld) [#/Vol] 0.077 10*3/uL Normal 15-500 [facility] Comment on above: Performed By: #### 6 399, 622, 927 #### [facility] [place] [address] Supervisor [place] [employer]: Scott Nichols MD Eosinophils/100 WBC (Bld) 1.3 % Normal [facility] Comment on above: Performed By: #### 6 399, 622, 927 #### [facility] [place] [address] Supervisor [place] [employer]: Scott Nichols MD Erythrocyte distribution width (RBC) [Ratio] 12.3 % Normal 11.0-15.0 [facility] Comment on above: Performed By: #### 6 399, 622, 927 #### [facility] of [place] [address] Supervisor [place] [employer]: Scott Nichols MD Hematocrit (Bld) [Volume fraction] 40.2 % Normal 35.0-45.0 [facility] Comment on above: Performed By: #### 6 399, 622, 927 #### [facility] of [place] [address] Supervisor [place] [employer]: Scott Nichols MD Hemoglobin (Bld) [Mass/Vol] 13.8 g/dL Normal 11.7-15.5 [facility] Comment on above: Performed By: #### 6 399, 622, 927 #### [facility] of [place] [address] Supervisor [place] [employer]: Scott Nichols MD Lymphocytes (Bld) [#/Vol] 1.682 10*3/uL Normal 850-3900 [facility] Comment on above: Performed By: #### 6 399, 622, 927 #### [facility] [place] [address] Supervisor [employer]: Scott Nichols MD Lymphocytes/100 WBC (Bld) 28.5 % Normal [facility] Comment on above: Performed By: #### 6 399, 622, 927 #### [facility] [place] [address] Supervisor [place] [employer]: Scott Nichols MD MCH (RBC) [Entitic mass] 29.9 pg Normal 27.0-33.0 [facility] Comment on above: Performed By: #### 6 399, 622, 927 #### [facility] [place] [address] Supervisor [place] [employer]: Scott Nichols MD MCHC (RBC) [Mass/Vol] 34.3 g/dL Normal 32.0-36.0 [facility] Comment on above: Performed By: #### 6 399, 622, 927 #### [facility] [place] [address] Supervisor [place] [employer]: Scott Nichols MD MCV (RBC) [Entitic vol] 87.0 fL Normal 80.0-100.0 [facility] Comment on above: Performed By: #### 6 399, 622, 927 #### [facility] [place] [address] Supervisor [place] [employer]: Scott Nichols MD Monocytes (Bld) [#/Vol] 0.407 10*3/uL Normal 200-950 [facility] Comment on above: Performed By: #### 6 399, 622, 927 #### [facility] [place] [address] Supervisor [place] [employer]: Scott Nichols MD Monocytes/100 WBC (Bld) 6.9 % Normal [facility] Comment on above: Performed By: #### 6 399, 622, 927 #### [facility] of [place] [address] Supervisor [place] [employer]: Scott Nichols MD Neutrophils (Bld) [#/Vol] 3.693 10*3/uL Normal 6982-8725 [facility] Comment on above: Performed By: #### 6 399, 622, 927 #### [facility] of [place] [address] Supervisor [place] [employer]: Scott Nichols MD Neutrophils/100 WBC (Bld) 62.6 % Normal [facility] Comment on above: Performed By: #### 6 399, 622, 927 #### [facility] of [place] [address] Supervisor [place] [employer]: Scott Nichols MD Platelet mean volume (Bld) [Entitic vol] 11.9 fL Normal 7.5-12.5 [facility] Comment on above: Performed By: #### 6 399, 622, 927 #### [facility] [place] [address] Supervisor [place] [employer]: Scott Nichols MD Platelets (Bld) [#/Vol] 195 10*3/uL Normal 140-400 [facility] Comment on above: Performed By: #### 6 399, 622, 927 #### [facility] of [place] [address] Supervisor [place] [employer]: Scott Nichols MD RBC (Bld) [#/Vol] 4.62 10*6/uL Normal 3.80-5.10 [facility] Comment on above: Performed By: #### 6 399, 622, 927 #### [facility] of [place] [address] Supervisor [place] [employer]: Scott Nichols MD WBC (Bld) [#/Vol] 5.9 10*3/uL Normal 3.8-10.8 [facility] Comment on above: Performed By: #### 6 399, 622, 927 #### [facility] [place] [address], [address] [place] [address] Supervisor [place] [employer]: Scott Nichols MD MAGNESIUMon 09-10-2021 Magnesium [Mass/Vol] 1.7 mg/dL Normal 1.5-2.5 [facility] Comment on above: Order Comment: FASTI NG:UNKNOWN FASTING: UNKNOWN Performed By: #### 6 399, 622, 927 #### [facility] [address], [address] [place] [address] Supervisor [place] [employer]: Scott Nichols MD VITAMIN B12on 09-10-2021 Cobalamin (Vitamin B12) [Mass/Vol] 334 pg/mL Normal 200-1100 [facility] Comment on above: Result Comment: Please Note: Although the reference range for vitamin B12 is 200-1100 pg/mL, it has been reported that between 5 and 10% of patients with values between 200 and 400 pg/mL may experience neuropsychiatric and hematologic abnormalities due to occult B12 deficiency; less than 1% of patients with values above 400 pg/mL will have symptoms. Performed By: #### 6 399, 622, 927 #### [facility] [address], [address] [place] [address] Supervisor [place] [employer]: Scott Nichols MD ALBUMIN, RANDOM URINE W/CREA TININEon 07-29-2021 ALBUMIN, URINE 2.6 mg/dL Normal See Note: [facility] Comment on above: Result Comment: Refe rence Range: Reference Range Not established Performed By: #### 1 0231, 7600, 6517 #### [facility] [address], [address] [place] [address] Supervisor [place] [employer]: Scott Nichols MD ALBUMIN/CREATININE RATIO, RANDOM URINE 49 mcg/mg creat High <30 [facility] Comment on above: Result Comment: The ADA defines abnormalities in albumin excretion as follows: Albuminuria Category Result (mcg/mg creatinine) Normal to Mildly increased <30 Moderately increased 30-299 Severely increased > OR = 300 The ADA recommends that at least two of three specimens collected within a 3-6 month period be abnormal before considering a patient to be within a diagnostic category. Performed By: #### 1 0231, 7600, 6517 #### [facility] of [address], [address] [place] [address] Supervisor [place] [employer]: Scott Nichols MD Creatinine (U) [Mass/Vol] 53 mg/dL Normal 20-275 [facility] Comment on above: Performed By: #### 1 0231, 0, 6517 #### [facility] of [address], [address] [place] [address] Supervisor [place]: Scott Nichols MD COMPREHENSIVE METABOLIC PANE [facility] 07-29-2021 Albumin [Mass/Vol] 4.6 g/dL Normal 3.6-5.1 [facility] Comment on above: Performed By: #### 1 023, 7599, 6517 #### [facility] of [address], [address] [place] [address] Supervisor [place] [employer]: Scott Nichols MD Albumin/Globulin [Mass ratio] 1.6 {ratio} Normal 1.0-2.5 [facility] Comment on above: Performed By: #### 1 023, 7599, 6517 #### [facility] of [address], [address] [place] [address] Supervisor [place]: Scott Nichols MD ALP [Catalytic activity/Vol] 55 U/L Normal 37-153 [facility] Comment on above: Performed By: #### 1 023, 7599, 6517 #### [facility] of [address], [address] [place] [address] Supervisor [place] [employer]: Scott Nichols MD ALT [Catalytic activity/Vol] 11 U/L Normal 6-29 [facility] Comment on above: Result Comment: NO C OLLECTION DATE RECEIVED. WE HAVE USED THE DATE THE SPECIMEN WAS RECEIVED BY THIS LABORATORY THE COLLECTION DATE. IF THIS IS INCORRECT, PLEASE CONTACT CLIENT SERVICES. PHONE NUMBER: [phone] Performed By: #### 1 0231, 0, 6517 #### [facility] of [address], [address] [place] [address] Supervisor [place] [employer]: Scott Nichols MD AST [Catalytic activity/Vol] 11 U/L Normal 10-35 [facility] Comment on above: Performed By: #### 1 0231, 7599, 6517 #### [facility] [address], [address] [place] [address] Supervisor [place] [employer]: Scott Nichols MD Bilirubin [Mass/Vol] 0.6 mg/dL Normal 0.2-1.2 [facility] Comment on above: Performed By: #### 1 023, 7599, 6517 #### [facility] [address], [address] [place] [address] Supervisor [place] [employer]: Scott Nicohls MD BUN/CREATININE RATIO NOT APPLICABLE Normal 6-22 [facility] Comment on above: Performed By: #### 1 0231, 7599, 65 #### [facility] [place] [address] Supervisor [place] [employer]: Scott Nichols MD Calcium [Mass/Vol] 9.5 mg/dL Normal 8.6-10.4 [facility] Comment on above: Performed By: #### 1 023, 7599, 6517 #### [facility] [place] [address] Supervisor [place] [employer]: Scott Nichols MD Chloride [Moles/Vol] 105 mmol/L Normal 98-110 [facility] Comment on above: Performed By: #### 1 023, 7599, 6517 #### [facility] [place] [address] Supervisor [place] [employer]: Scott Nichols MD CO2 [Moles/Vol] 30 mmol/L Normal 20-32 [facility] Comment on above: Performed By: #### 1 0231, 7599, 6517 #### [facility] of [place] [address] Supervisor [place] [employer]: Scott Nichols MD Creatinine [Mass/Vol] 0.62 mg/dL Normal 0.60-0.93 [facility] Comment on above: Result Comment: For patients >49 years of age, the reference limit for Creatinine is approximately 13% higher for people identified as -Chilean. Performed By: #### 1 230, 7599, 6517 #### [facility] [place] [address] Supervisor [place] [employer]: Scott Nichols MD eGFR NON-AFR. SALVADOREAN 91 mL/min/1.73m2 Normal > OR = 60 [facility] Comment on above: Performed By: #### 1 230, 7599, 6517 #### [facility] [place] [address] Supervisor [place] [employer]: Scott Nichols MD GFR/1.73 sq M.predicted among blacks MDRD (S/P/Bld) [Vol rate/Area] 106 mL/min/{1.73_m2} Normal > OR = 60 [facility] Comment on above: Performed By: #### 1 230, 7599, 17 #### [facility] [place] [address] Supervisor [place] [employer]: Scott Nichols MD Globulin (S) [Mass/Vol] 2.8 g/dL Normal 1.9-3.7 [facility] Comment on above: Performed By: #### 1 230, 7599, 17 #### [facility] [place] [address] Supervisor [place] [employer]: Scott Nichols MD Glucose [Mass/Vol] 124 mg/dL High 65-99 [facility] Comment on above: Result Comment: Fasting reference interval For someone without known diabetes, a glucose value between 100 and 125 mg/dL is consistent with prediabetes and should be confirmed with a follow-up test. Performed By: #### 1 230, 7599, 6517 #### [facility] [place] [address] Supervisor [place] [employer]: Scott Nichols MD Potassium [Moles/Vol] 3.7 mmol/L Normal 3.5-5.3 [facility] Comment on above: Performed By: #### 1 230, 7599, 6517 #### [facility] [place] [id number] Supervisor [place] [employer]: Scott Nichols MD Protein [Mass/Vol] 7.4 g/dL Normal 6.1-8.1 [facility] Comment on above: Performed By: #### 1 230, 7599, 6517 #### [facility] of [place] [address] Supervisor [place]: Scott Nichols MD Sodium [Moles/Vol] 142 mmol/L Normal 135-146 [facility] Comment on above: Performed By: #### 1 023, 7599, 6517 #### [facility] [place] [address] Supervisor [place] [employer]: Scott Nichols MD Urea nitrogen [Mass/Vol] 8 mg/dL Normal 7-25 [facility] Comment on above: Performed By: #### 1 230, 7599, 6517 #### [facility] [place] [address] Supervisor [place]: Scott Nichols MD LIPID PANEL, [facility] 03-0 Cholesterol [Mass/Vol] 156 mg/dL Normal <200 [facility] Comment on above: Performed By: #### 1 230, 7599, 6517 #### [facility] [place] [address] Supervisor [place]: Scott Nichols MD Cholesterol in HDL [Mass/Vol] 67 mg/dL Normal > OR = 50 [facility] Comment on above: Performed By: #### 1 230, 7599, 6517 #### [facility] [place] [address] Supervisor [place]: Scott Nichols MD Cholesterol in LDL [Mass/Vol] 72 mg/dL Normal [facility] Comment on above: Result Comment: Refe rence range: <100 Desirable range <100 mg/dL for primary prevention; <70 mg/dL for patients with CHD or diabetic patients with > or = 2 CHD risk factors. LDL-C is now calculated using the Placido-Knox calculation, which is a validated novel method providing better accuracy than the Friedewald equation in the estimation of LDL-C. Placido VENTURA et al. MACKENZIE. 2013;310(19): 4495-7126 (http://education.Nite[employer].[facility]/faq/BQQ114) Performed By: #### 1 0231, 0, 6517 #### [facility] [place] [address] Supervisor [place] [employer]: Scott Nichols MD Cholesterol.total/Ch olesterol in HDL [Mass ratio] 2.3 {ratio} Normal <5.0 [facility] Comment on above: Performed By: #### 1 023, 7599, 6517 #### [facility] [place] [address] Supervisor [place]: Scott Nichols MD NON HDL CHOLESTEROL 89 mg/dL (calc) Normal <130 [facility] Comment on above: Result Comment: For patients with diabetes plus 1 major ASCVD risk factor, treating to a non-HDL-C goal of <100 mg/dL (LDL-C of <70 mg/dL) is considered a therapeutic option. Performed By: #### 1 230, 7599, 6517 #### [facility] [place] [address] Supervisor [place] [employer]: Scott Nichols MD Triglyceride [Mass/Vol] 85 mg/dL Normal <150 [facility] Comment on above: Performed By: #### 1 023, 7599, 6517 #### [facility] [place] [address] Supervisor [place]: Scott Nichols MD REFLEXIVE URINE CULTUREon REFLEXIVE URINE CULTURE Normal [facility] Comment on above: Result Comment: NO C ULTURE INDICATED Performed By: #### 3 020 #### [facility] [place] [address] Supervisor [place]: Scott Nichols MD URINALYSIS, COMPLETE W/REFLE X TO CULTUREon 02-06-2021 Appearance (U) CLEAR Normal CLEAR [facility] Comment on above: Performed By: #### 3 020 #### [facility] of [place] [address] Supervisor [place]: Scott Nichols MD BACTERIA NONE SEEN Normal NONE SEEN [facility] Comment on above: Performed By: #### 3 020 #### [facility] of [place] [address] Supervisor [place]: Scott Nichols MD Bilirubin Ql (U) Negative Normal NEGATIVE [facility] Comment on above: Performed By: #### 3 020 #### [facility] of [place] [address] Supervisor [place]: Scott Nichols MD Color (U) YELLOW Normal YELLOW [facility] Comment on above: Performed By: #### 3 020 #### [facility] [place] [address] Supervisor [place]: Scott Nichols MD Glucose Ql (U) Negative Normal NEGATIVE [facility] Comment on above: Performed By: #### 3 020 #### [facility] [place] [address] Supervisor [place]: Scott Nichols MD HYALINE CAST NONE SEEN Normal NONE SEEN [facility] Comment on above: Performed By: #### 3 020 #### [facility] [place] [address] Supervisor [place]: Scott Nichols MD Ketones Ql (U) Negative Normal NEGATIVE [facility] Comment on above: Performed By: #### 3 020 #### [facility] [place] [address] Supervisor [place]: Scott Nichols MD Leukocyte esterase Test strip Ql (U) Negative Normal NEGATIVE [facility] Comment on above: Performed By: #### 3 020 #### [facility] [place] [address] Supervisor [place]: Scott Nichols MD Nitrite Ql (U) Negative Normal NEGATIVE [facility] Comment on above: Performed By: #### 3 020 #### [facility] [place] [address] Supervisor [place]: Scott Nichols MD OCCULT BLOOD TRACE Abnormal NEGATIVE [facility] Comment on above: Performed By: #### 3 020 #### [facility] [place] [address] Supervisor [place] [employer]: Scott Nichols MD pH (U) 6.5 [pH] Normal 5.0-8.0 [facility] Comment on above: Performed By: #### 3 020 #### [facility] [place] [address] Supervisor [place] [employer]: Scott Nichols MD Protein Ql (U) Negative Normal NEGATIVE [facility] Comment on above: Performed By: #### 3 020 #### [facility] [place] [address] Supervisor [place]: Scott Nichols MD RBC NONE SEEN Normal < OR = 2 [facility] Comment on above: Performed By: #### 3 020 #### [facility] of [place] [address] Supervisor [place] [employer]: Scott Nichols MD Specific gravity (U) [Rel density] 1.008 Normal 1.001-1.035 [facility] Comment on above: Performed By: #### 3 020 #### [facility] of [place] [address] Supervisor [place]: Scott Nichols MD SQUAMOUS EPITHELIAL CELLS NONE SEEN Normal < OR = 5 [facility] Comment on above: Performed By: #### 3 020 #### [facility] of [place] [address] Supervisor [place] [employer]: Scott Nichols MD WBC NONE SEEN Normal < OR = 5 [facility] Comment on above: Performed By: #### 3 020 #### [facility] of [place] [address] Supervisor [place]: Scott Nichols MD BASIC METABOLIC PANELon 08-2 BUN/CREATININE RATIO NOT APPLICABLE Normal -22 [facility] Comment on above: Order Comment: FASTI NG:YESFASTING: YES Performed By: #### 3 020 #### [facility] [place] [address] Supervisor [place] [employer]: Scott Nichols MD Calcium [Mass/Vol] 9.6 mg/dL Normal 8.6-10.4 [facility] Comment on above: Order Comment: FASTI NG:YESFASTING: YES Performed By: #### 3 020 #### [facility] [address], [address] [place] [address] Supervisor [place] [employer]: Scott Nichols MD Chloride [Moles/Vol] 106 mmol/L Normal 98-110 [facility] Comment on above: Order Comment: FASTI NG:YESFASTING: YES Performed By: #### 3 020 #### [facility] [address], [address] [place] [address] Supervisor [place] [employer]: Scott Nichols MD CO2 [Moles/Vol] 29 mmol/L Normal 20-32 [facility] Comment on above: Order Comment: FASTI NG:YESFASTING: YES Performed By: #### 3 020 #### [facility] [place] [address] Supervisor [place]: Scott Nichols MD Creatinine [Mass/Vol] 0.69 mg/dL Normal 0.50-0.99 [facility] Comment on above: Order Comment: FASTI NG:YESFASTING: YES Result Comment: For patients >49 years of age, the reference limit for Creatinine is approximately 13% higher for people identified as -Chilean. Performed By: #### 3 020 #### [facility] [address], [address] [place] [address] Supervisor Spring Up: Scott Nichols MD eGFR NON-AFR. SALVADOREAN 89 mL/min/1.73m2 Normal > OR = 60 [facility] Comment on above: Order Comment: FASTI NG:YESFASTING: YES Performed By: #### 3 020 #### [facility] [address], [address] [place] [address] Supervisor [place] Up: Scott Nichols MD GFR/1.73 sq M.predicted among blacks MDRD (S/P/Bld) [Vol rate/Area] 103 mL/min/{1.73_m2} Normal > OR = 60 [facility] Comment on above: Order Comment: FASTI NG:YESFASTING: YES Performed By: #### 3 020 #### [facility] [place] [address] Supervisor Spring Up: Scott Nichols MD Glucose [Mass/Vol] 139 mg/dL High 65-99 [facility] Comment on above: Order Comment: FASTI NG:YESFASTING: YES Result Comment: Fasting reference interval For someone without known diabetes, a glucose value >125 mg/dL indicates that they may have diabetes and this should be confirmed with a follow-up test. Performed By: #### 3 020 #### [facility] [place] [address] Supervisor Spring Up: Scott Nichols MD Potassium [Moles/Vol] 3.9 mmol/L Normal 3.5-5.3 [facility] Comment on above: Order Comment: FASTI NG:YESFASTING: YES Performed By: #### 3 020 #### [facility] [place] [address] Supervisor Spring Up: Scott Nichols MD Sodium [Moles/Vol] 140 mmol/L Normal 135-146 [facility] Comment on above: Order Comment: FASTI NG:YESFASTING: YES Performed By: #### 3 020 #### [facility] [place] [address] Supervisor Spring Up: Scott Nichols MD Urea nitrogen [Mass/Vol] 11 mg/dL Normal 7-25 [facility] Comment on above: Order Comment: FASTI NG:YESFASTING: YES Performed By: #### 3 020 #### [facility] [place] [address] Supervisor Spring Up: Scott Nichols MD Vital Signs Date Time Vital Sign Value Performing Clinician Facility 04-13-2023 13:45-0500 Body height 151.13 cm Elisha Carrasquillo Other [facility] 04-13-2023 13:45-0500 Body mass index (BMI) [Ratio] 25.7 kg/m2 Elisha Carrasquillo Other [facility] 04-13-2023 13:45-0500 Body weight 58.7 kg Elisha Carrasquillo Other [facility] 04-13-2023 13:45-0500 Diastolic blood pressure 70 mm[Hg] Elisha Carrasquillo Other [facility] 04-13-2023 13:45-0500 SaO2% (BldA) [Mass fraction] 97 % Elisha Carrasquillo Other [facility] 04-13-2023 13:45-0500 Systolic blood pressure 108 mm[Hg] Elisha Carrasquillo Other [facility] 02-16-2023 13:30-0400 Body height 151.13 cm Elisha Carrasquillo Other [facility] 02-16-2023 13:30-0400 Body mass index (BMI) [Ratio] 26.01 kg/m2 Elisha Carrasquillo Other [facility] 02-16-2023 13:30-0400 Body weight 59.42 kg Elisha Carrasquillo Other [facility] 02-16-2023 13:30-0400 Diastolic blood pressure 80 mm[Hg] Elisha Carrasquillo Other [facility] 02-16-2023 13:30-0400 SaO2% (BldA) [Mass fraction] 97 % lEisha Carrasquillo Other [facility] 02-16-2023 13:30-0400 Systolic blood pressure 122 mm[Hg] Elisha Carrasquillo Other [facility] 02-04-2023 14:00-0400 Body height 151.13 cm Elisha Carrasquillo Other [facility] 02-04-2023 14:00-0400 Body mass index (BMI) [Ratio] 26.29 kg/m2 Elisha Carrasquillo Other [facility] 02-04-2023 14:00-0400 Body weight 60.06 kg Elisha Carrasquillo Other [facility] 02-04-2023 14:00-0400 Diastolic blood pressure 77 mm[Hg] Elisha Carrasquillo Other [facility] 02-04-2023 14:00-0400 Systolic blood pressure 146 mm[Hg] Elisha Carrasquillo Other [facility] 01-28-2023 09:45-0400 Body height 151.13 cm Elisha Carrasquillo Other [facility] 01-28-2023 09:45-0400 Body mass index (BMI) [Ratio] 26.29 kg/m2 Elisha Carrasquillo Other [facility] 01-28-2023 09:45-0400 Body weight 60.06 kg Elisha Carrasquillo Other [facility] 01-28-2023 09:45-0400 Diastolic blood pressure 79 mm[Hg] Elisha Carrasquillo Other [facility] 01-28-2023 09:45-0400 Systolic blood pressure 126 mm[Hg] Elisha Carrasquillo Other [facility] 09-08-2022 15:00-0400 Body height 151.13 cm Elisha Carrasquillo Other [facility] 09-08-2022 15:00-0400 Body mass index (BMI) [Ratio] 26.61 kg/m2 Elisha Carrasquillo Other [facility] 09-08-2022 15:00-0400 Body weight 60.78 kg Elisha Carrasquillo Other [facility] 09-08-2022 15:00-0400 Diastolic blood pressure 78 mm[Hg] Elisha Carrasquillo Other [facility] 09-08-2022 15:00-0400 SaO2% (BldA) [Mass fraction] 97 % Elisha Carrasquillo Other [facility] 09-08-2022 15:00-0400 Systolic blood pressure 118 mm[Hg] Elisha Carrasquillo Other [facility] 08-27-2022 14:30-0400 Body height 151.13 cm Elisha Carrasquillo Other [facility] 08-27-2022 14:30-0400 Body mass index (BMI) [Ratio] 26.41 kg/m2 Elisha Carrasquillo Other [facility] 08-27-2022 14:30-0400 Body weight 60.33 kg Elisha Carrasquillo Other [facility] 08-27-2022 14:30-0400 Diastolic blood pressure 74 mm[Hg] Elisha Carrasquillo Other [facility] 08-27-2022 14:30-0400 SaO2% (BldA) [Mass fraction] 95 % Elisha Carrasquillo Other [facility] 08-27-2022 14:30-0400 Systolic blood pressure 120 mm[Hg] Elisha Carrasquillo Other [facility] 08-10-2022 14:30-0400 Body height 151.13 cm Elisha Carrasquillo Other [facility] 08-10-2022 14:30-0400 Body mass index (BMI) [Ratio] 26.81 kg/m2 Elisha Carrasquillo Other [facility] 08-10-2022 14:30-0400 Body weight 61.24 kg Elisha Carrasquillo Other [facility] 08-10-2022 14:30-0400 Diastolic blood pressure 74 mm[Hg] Elisha Carrasquillo Other [facility] 08-10-2022 14:30-0400 SaO2% (BldA) [Mass fraction] 97 % Elisha Carrasquillo Other [facility] 08-10-2022 14:30-0400 Systolic blood pressure 126 mm[Hg] Elisha Carrasquillo Other [facility] 11-26-2021 08:12-0400 Blood Pressure Location Norma Lue [facility] 11-26-2021 08:12-0400 Diastolic blood pressure 82 mm[Hg] Norma Lue [facility] 11-26-2021 08:12-0400 Heart rate 66 /min Norma Pulido [facility] 11-26-2021 08:12-0400 Systolic blood pressure 139 mm[Hg] Norma Lue [facility] Encounters Encounter Date Encounter Type Care Provider Facility Start: 05-19-2023 End: 05-19-2023 ambulatory Elisha Carrasquillo Other Location [facility] Other Start: 05-19-2023 Telephone encounter Elisha Carrasquillo [facility] Start: 04-13-2023 End: 04-13-2023 ambulatory Elisha Carrasquillo Other [facility] Other Start: 04-13-2023 Office outpatient vi sit 15 minutes Elisha Carrasquillo [facility] Start: 03-11-2023 End: 03-11-2023 ambulatory Elisha Carrasquillo Other [facility] Other Start: 03-11-2023 Telephone encounter Elisha Carrasquillo [facility] Start: 03-10-2023 End: 03-10-2023 ambulatory Elisha Carrasquillo Other [facility] Other Start: 03-10-2023 Telephone encounter Elisha Carrasquillo [facility] Start: 03-01-2023 End: 03-01-2023 ambulatory Elisha Carrasquillo Other Location [facility] Other Start: 03-01-2023 Telephone encounter Elisha Carrasquillo [facility] Start: 02-22-2023 End: 02-22-2023 ambulatory Elisha Carrasquillo Other Location [facility] Other Start: 02-22-2023 Telephone encounter Elisha Carrasquillo [facility] Start: 02-16-2023 End: 02-16-2023 ambulatory Elisha Carrasquillo Other Location [facility] Other Start: 02-16-2023 Office outpatient vi sit 15 minutes Elisha Carrasquillo [facility] Start: 02-04-2023 End: 02-04-2023 ambulatory Elisha Carrasquillo Other Location [facility] Other Start: 02-04-2023 Office outpatient vi sit 15 minutes Elisha Carrasquillo [facility] Start: 02-02-2023 End: 02-02-2023 ambulatory Elisha Carrasquillo Other [facility] Other Start: 02-02-2023 Telephone encounter Elisha Carrasquillo [facility] Start: 01-28-2023 End: 01-28-2023 ambulatory Elisha Carrasquillo Other Location [facility] Other Start: 01-28-2023 Office outpatient vi sit 15 minutes Elisha Carrasquillo [facility] Start: 12-18-2022 End: 12-18-2022 ambulatory Elisha Carrasquillo Other Location [facility] Other Start: 12-18-2022 Telephone encounter Elisha Carrasquillo [facility] Start: 12-09-2022 End: 12-10-2022 ambulatory PA-C SADAF WESTON Facility[facility] Start: 12-09-2022 End: 12-10-2022 ambulatory PA-C SADAF WESTON Facility:[facility] Start: 12-09-2022 End: 12-09-2022 Lab Drop off SADAF WESTON [facility] Start: 10-05-2022 End: 10-06-[address] ELISHA CARRASQUILLO Facility: Start: 09-23-2022 End: 09-23-2022 ambulatory Elisha Carrasquillo Other Location [facility] Other Start: 09-23-2022 Telephone encounter Elisha Carrasquillo [facility] Start: 09-22-2022 End: 09-23-[address] ELISHA CARRASQUILLO Facility:[facility] Start: 09-08-2022 End: 09-08-2022 ambulatory Elisha Carrasquillo Other Location [facility] Other Start: 09-08-2022 Office outpatient vi sit 15 minutes Elisha Carrasquillo [facility] Start: 08-27-2022 End: 08-27-2022 ambulatory Elisha Carrasquillo Other [facility] Other Start: 08-27-2022 Office outpatient vi sit 15 minutes Elisha Carrasquillo [facility] Start: 08-13-2022 End: 08-13-2022 ambulatory Elisha Carrasquillo Other Location [facility] Other Start: 08-13-2022 Telephone encounter Elisha Carrasquillo [facility] Start: 08-12-2022 End: 08-13-[address] ELISHA CARRASQUILLO Facility:[facility] Start: 08-11-2022 End: 08-12-[address] ELISHA CARRASQUILLO Facility:[facility] Start: 08-10-2022 End: 08-10-2022 ambulatory Elisha Carrasquillo Other Location [facility] Other Start: 08-10-2022 Office outpatient ne w 45 minutes Elisha Carrasquillo [facility] Start: 07-16-2022 End: 07-16-2022 ambulatory ESA DIAB . Facility:[facility] Start: 03-09-2022 End: 03-09-[address] BRUCE WALLER Facility:[facility] Start: 01-27-2022 End: 01-27-[address] BRUCE WALLER Facility:[facility] Start: 11-26-2021 End: 11-26-2021 Lab Drop off Norma Pulido [facility] Start: 11-26-2021 End: 11-26-2021 Patient encounter procedure Norma Pulido [facility] Start: 11-22-2021 End: 11-23-[address] BRUCE WALLER Facility:[facility] Start: 11-12-2021 End: 11-12-[address] BRUCE WALLER Facility:[facility] Procedures Date Procedure Procedure Detail Performing Clinician Start: 06-16-2021 Cystoscopy SADAF PRAJAPATI Colonoscopy Norma Lujulito Cystoscopy Norma Pulido Hysterectomy Norma Pulido Plan of Treatment Date Care Activity Detail Author Start: 12-15-2023 ambulatory Ambulatory Facility:[facility] [place] Immunizations Immunization Date Immunization Notes Care Provider Fa cility NEGATED: Highlighted row has not occurred!11-26-2021 SARS-CoV-2 mRNA (tozinameran 5y-11y) vaccine Norma Pulido [facility] Payers Date Payer Category Payer Medicare [id number] 1958 Medicare [id number] 1958 Medicare [id number] 1950 Unknown [id number] 2.16.84 [id number] 1950 Unknown [id number] 2.16.84 [id number] 1950 Unknown [id number] 2.16.84 [id number] 1950 Unknown [id number] 2.16.84 [id number] 1950 Unknown [id number] 2.16.84 [id number] 1950 Unknown [id number] 2.16.84 [id number] 1950 Unknown [id number] 2.16.84 [id number] 1950 Unknown [id number] 2.16.84 [id number] 1950 Unknown [id number] 2.16.84 [id number] 1950 Unknown [id number] 2.16.8 [id number] 1950 Unknown [id number] 2.16.8 [id number] 1950 Unknown [id number] 2.16.8 [id number] Social History Date Type Detail Facility Start: 06-04-2021 End: 12-09-2022 Tobacco smoking status Never smoked tobacco (finding) [facility] Sex Assigned At Female [facility] Tobacco smoking status Never [facility] Functional Status Date Assessment Result Facility 11-26-2021 Functional Status N/A [facility] Clinical Notes 11-26-2021 to 04-13-2023 Note Date & Type Note Facility 04-13-2023 Evaluation note Encounter Date Diagnosis Assessment Notes Mar, Lumbar back pain with radiculopathy affecting right lower extremity (ICD-10 - M54.16) Discussed holding atorvastatin to help with muscle pain. Pt agrees to referral to Pain Mgmt. Has had benign xrays of back and hip, per her report. Location [facility] Other 10-18-2023 Evaluation note* Encounter Date Diagnosis Assessment Notes Treatment Notes Treatment Clinical Notes Feb, Recurrent occipital headache (ICD-10 - R51.9) Location [facility] 10-09-2023 Evaluation note* Encounter Date Diagnosis Assessment Notes Treatment Notes Treatment Clinical Notes Feb, Essential (primary) hypertension (ICD-10 - I10) Location [facility] Other 09-26-2023 Evaluation note* Encounter Date Diagnosis Assessment Notes Treatment Notes Treatment Clinical Notes Jan, Recurrent occipital headache (ICD-10 - R51.9) Pt never pursued PT - order given recently for neck pain. She feels her headache is worse since hitting forehead in the past year. Agreed to complete neck xray to assess for osteoarthritis and MRI to r/o mass or bleed. She is presently on eliquis for DVT and feels headache has worsened since starting eliquis. Orders faxed to [facility]. Location [facility] Other 09-14-2023 Evaluation note* Encounter Date Diagnosis Assessment Notes Treatment Notes Treatment Clinical Notes Jan, Acute deep vein thrombosis (DVT) of calf muscle vein of right lower extremity (ICD-10 - I82.461) Wrote out instructions and gave samples of eliquis. Has appt later this week w vascular in [place]. Pt expresses understanding of the seriousness of this problem and will follow up w vascular and attribute to their treatment plan for DVT. Location [facility] Other 09-07-2023 Evaluation note* Encounter Date Diagnosis Assessment Notes Treatment Notes Treatment Clinical Notes Jan, Cervical pain (neck) (ICD-10 - M54.2) Printed order for PT. continue NSAIDs and heat therapy. Suspect her headaches are due to cervical problems. Jan, Varicose veins of both lower extremities with pain (ICD-10 - I83.813) Pt agrees to referral to vascular surgery for her prominent painful varicose veins. Location [facility] Other 07-28-2023 Evaluation note* Encounter Date Diagnosis Assessment Notes Treatment Notes Treatment Clinical Notes Nov, Type 2 diabetes mellitus with hyperglycemia, without long-term current use of insulin (ICD-10 - E11.65) Location [facility] Other 05-03-2023 Evaluation note* Encounter Date Diagnosis Assessment Notes Treatment Notes Treatment Clinical Notes September, Abnormal mammogram of right breast (ICD-10 - R92.8) Location [facility] Other 04-18-2023 Evaluation note* Encounter Date Diagnosis Assessment Notes Treatment Notes Treatment Clinical Notes Aug, Vaginal yeast infection (ICD-10 - B37.31) Complete med and call if symptoms continue Aug, Screening mammogram for breast cancer (ICD-10 - Z12.31) Location [facility] Other 04-06-2023 Evaluation note* Encounter Date Diagnosis Assessment Notes Treatment Notes Treatment Clinical Notes Aug, Acute non-recurrent maxillary sinusitis (ICD-10 - J01.00) Sinus infections can be triggered by a secondary infection from a viral URI or even seasonal allergies. Take medications as directed. Use saline nasal spray prior to presciption nasal spray. Take medications as directed, and complete all doses of medication even if you start to feel better. Patient advised to follow up with PCP if symptoms persist or worsen. Patient verbalized understanding and agreement with treatment plan. Aug, Type 2 diabetes mellitus with hyperglycemia, without long-term current use of insulin (ICD-10 - E11.65) Chronic problem - requests refill Aug, Essential (primary) hypertension (ICD-10 - I10) Chronic problem - requests refill. Location [facility] Other 03-22-2023 NotePROCEDURE: XR HIP RT 2 3V W PELVIS HISTORY: Pain in right leg ; low back pain COMPARISON: None. FINDINGS: BONES:No fracture, acute abnormality, or significant arthropathy. SOFT TISSUES:No visible soft tissue swelling. EFFUSION:None visible. OTHER: Negative. IMPRESSION: 1. No acute bone abnormality or significant degenerative changes of the hip joints. Electronically authenticated by: CIPRIANO MENON Date: 2022-08-12 09:35[facility]03-20-2023 Evaluation note* Encounter Date Diagnosis Assessment Notes Treatment Notes Treatment Clinical Notes Jul, Low back pain, unspecified (ICD-10 - M54.50) Pt agrees to xray to reassess possible arthritis or pinched nerve Jul, Pain in right leg (ICD-10 - M79.604) Discussed potential hip OA causing quad pain Jul, Type 2 diabetes mellitus with hyperglycemia, without long-term current use of insulin (ICD-10 - E11.65) Pt states she is due for A1C and would like to recheck all labs Jul, Muscle cramps (ICD-1 0 - R25.2) Discussed potential low magnesium with muscle cramps Jul, Mixed hyperlipidemia (ICD-10 - E78.2) Pt interested in cholesterol levels and will check later this week Location [facility] Other 07-06-2022 Hospital Discharge instructions Patient Education 11/26/2021 08:53:30 Hematuria, Adult Hematuria, Adult Hematuria is blood in the urine. Blood may be visible in the urine, or it may be identified with a test. This condition can be caused by infections of the bladder, urethra, kidney, or prostate. Otherpossible causes include: Kidney stones. Cancer of the urinary tract. Too much calcium in the urine. Conditions that are passed from parent to child (inherited conditions). Exercise that requires a lot of energy. Infections can usually be treated with medicine, and a kidney stone usually will pass through your urine. If neither of these is the cause of your hematuria, more tests may be needed to identify the cause of your symptoms. It is very important to tell your health care provider about any blood in your urine, even if it ispainless or the blood stops without treatment. Blood in the urine, when it happens and then stops and then happens again, can be a symptom of a very serious condition, including cancer. There is no pain in the initial stages of many urinary cancers. Follow these instructions at home: Medicines Take cqpm-tlg-cvirlpu and prescription medicines only as told by your health care provider. If you were prescribed an antibiotic medicine, take it as told by your health care provider. Do notstop taking the antibiotic even if you start to feel better. Eating and drinking Drink enough fluid to keep your urine clear or pale yellow. It is recommended that you drink 3 4 quarts (2.8 3.8 L) a day. If you have been diagnosed with an infection, it is recommended that you drink cranberry juice in addition to large amounts of water. Avoid caffeine, tea, and carbonated beverages. These tend to irritate the bladder. Avoid alcohol because it may irritate the prostate (men). General instructions If you have been diagnosed with a kidney stone, follow your health care provider's instructions about straining your urine to catch the stone. Empty your bladder often. Avoid holding urine for long periods of time. If you are female: ?After a bowel movement, wipe from front to back and use each piece of toilet paper only once. ?Empty your bladder before and after sex. Pay attention to any changes in your symptoms. Tell your health care provider about any changes or any new symptoms. It is your responsibility to get your test results. Ask your health care provider, or the department performing the test, when your results will be ready. Keep all follow-up visits as told by your health care provider. This is important. Contact a health care provider if: You develop back pain. You have a fever. You have nausea or vomiting. Your symptoms do not improve after 3 days. Your symptoms get worse. Get help right away if: You develop severe vomiting and are unable take medicine without vomiting. You develop severe pain in your back or abdomen even though you are taking medicine. You pass a large amount of blood in your urine. You pass blood clots in your urine. You feel very weak or like you might faint. You faint. Summary Hematuria is blood in the urine. It has many possible causes. It is very important that you tell your health care provider about any blood in your urine, even ifit is painless or the blood stops without treatment. Take xowy-gwr-pfrtadm and prescription medicines only as told by your health care provider. Drink enough fluid to keep your urine clear or pale yellow. This information is not intended to replace advice given to you by your health care provider. Make sure you discuss any questions you have with your health care provider. Document Released: 05/10/2006 Document Revised: 10/04/2019 Document Reviewed: 06/12/2017 [employer] Patient Education 2020 [employer] Follow Up Care 11/18/2021 15:11:49 With:Ashok LAWTON, ALVIN Siddiqi, URO Address: When:1 year Comments:Renal US [facility] evaluation + Plan note Future Appointments Appointment Date:12/02/2022 08:00:00 AM Scheduled Provider:Norma Pulido MD Location:[facility] Appointment Type:URO Office Visit [facility] evaluation + Plan note Future Appointments Appointment Date:12/15/2023 09:00:00 AM Scheduled Provider:Norma Pulido MD Location:[facility] Appointment Type:URO Office Visit Diagnostic Tests Pending * [facility] [facility] [address] Other History general Narrative - Reported* Type Description Date Medical History Hyperlipidemia Medical History Diabetes Medical History Hypertension Surgical History Hysterectomy 1987 [facility] [employer] Other Hisqzey general Narrative - Reported* Type Description Date Medical History Hyperlipidemia Medical History Diabetes Medical History Hypertension Surgical History Hysterectomy 1987 Hospitalization History SEE SURGICAL HX [facility] [employer] [facility] Other Hospital course Narrative No data available for this section [facility] Hospital Discharge instructions No data available for this section [facility] No data available for this section [facility] Summary Purpose Family History No Family History Records FoundNo Family History Records FoundNo Family History Records Found Advance Directives No Advanced Directives Records FoundNo Advanced Directives Records FoundNo Advanced Directives Records Found Reason for Referral Reason R lumbar pain referr ed to [facility] and R knee area. Diagnosis 1 Lumbar back pain wit h radiculopathy affecting right lower extremity (M54.16) Referral Organization [facility] gifty Referring Provider First Name Elsiha Referring Provider Last Name Neida Referring Provider Specialty Family [facility] Referred Organization [facility] Referred Address [address], [place],[address] Referred Provider Specialty Pain Medicin e Referral Priority Routine Reason [facility] [place] office? Last 2 OV, had xray and MRI. Occipital headaches Diagnosis 1 Recurrent occipital headache (R51.9) [facility] [facility] Referring Provider First Name Elisha Referring Provider Last Name Neida Referring Provider Specialty [facility] Referred Organization [facility] Referred Address [address], [place],[address] Referred Provider Specialty Neurology Referral Priority Routine Reason [facility] [place] - varicose veins that are tender R>L Diagnosis 1 Varicose veins of yong th lower extremities with pain (I83.813) Referral Organization [facility] Referring Provider First Name Elisha Referring Provider Last Name Neida Referring Provider Specialty [facility] Referred Organization [facility] Referred Provider Betty Matos Referred Address [address] Referred Provider Specialty Vascular Tena rj Referral Priority Routine General Notes Giselle Levy 11:48:16 AM >received today, attachments made, waiting for notes to be locked Giselle Levy 02/02/2023 09:22:14 AM >SENT TE TO LOCK NOTES Clinical Notes P: [id number] F: [id number] Additional Source Comments Care Team (unrecognized sect ion and content) Personnel Name: BRUCE WALLER DO Address: [address] [place], [place] [address] [id number] Personnel Name: BRUCE WALLER DO Address: [address] [place], [place] [id number] [address] Personnel Name: ELISHA CARRASQUILLO MD Address: Address: [address] [place] [address] INFORMATION SOURCE (unrecogn ized section and content) DATE CREATED AUTHOR 11/27/2021 [facility] DATE CREATED AUTHOR AUTHOR'S ORGANIZ ATION 10/06/2022 [facility] DATE CREATED AUTHOR AUTHOR'S ORGANIZ ATION 01/03/[address] [facility] REASON FOR VISIT (unrecogniz ed section and content) Check [employer]pl[employer] and xrayNot Fee ling Well-COVID Negativereaction to medicationmammogramrefillHeadachesNOTES NEEDING LOCKEDUS Resultsheadache/medication discussionmessageRefilltests.medication questionbone painmessage FOR RECORDS PERTAINING TO PATIENTS WHO ARE OR HAVE BEEN ENROLLED IN A CHEMICAL DEPENDENCY/SUBSTANCEABUSE PROGRAM, SOME INFORMATION MAY BE OMITTED. This clinical summary was aggregated from multiple sources. Caution should be exercised in using it in the provision of clinical care. This summary normalizes information from multiple sources, and as a consequence, information in this document may materially change the coding, format and clinical context of patient data. In addition, data may be omitted in some cases. CLINICAL DECISIONS SHOULD BE BASED ON THE PRIMARY CLINICAL RECORDS. [employer] [facility]. provides no warranty or guarantee of the accuracy or completeness of information in this document.
--- NOTE | 2023-05-31 14:20 | P.CN_ITS ---
Consult Note: HPI Data of Consult Patient: new to practice Consult date: 05/31/23 Primary Care Provider: Elisha James MD Consult Narrative Reason for consult: Right hip, leg pain Narrative: 73yof who presents for evaluation. Notes previous significant pain in right hip and leg, but this has primarily resolves. Imaging was reviewed, which shows facet arthropathy in lower lumbar spine. She was started on Eliquis, which has helped with some of her pain. She engages in provider directed home exercises, which provides some relief. She otherwise denies adverse medications side effects. cc:: CC: Sandrine Abernathy MD Review of Systems ROS Status of ROS 10 or more systems reviewed and unremark able except as noted in history and below PFSH PFSH Social History Smoking status: Never smoker Meds Home Medications and Allergies Home Medications Medication Instructions Recorded Confirmed Type apixaban 2.5 mg tablet (Eliquis) 2.5 mg PO BID 02/06/23 05/31/23 History ondansetron 4 mg disintegrating 4 mg PO Q6H PRN nausea and 05/18/23 05/31/23 Rx tablet vomiting #14 tabs amlodipine 5 mg tablet 5 mg PO DAILY 05/31/23 05/31/23 History atorvastatin 20 mg tablet 20 mg PO DAILY 05/31/23 05/31/23 History meloxicam 7.5 mg tablet 7.5 mg PO DAILY 05/31/23 05/31/23 History metformin 500 mg tablet 500 mg PO DAILY 05/31/23 05/31/23 History Allergies Allergy/AdvReac Type Severity Reaction Status Date / Time amoxicillin Allergy Unknown Verified 02/06/23 23:53 cefdinir Allergy Unknown Verified 02/06/23 23:53 lisinopril Allergy Unknown Verified 02/06/23 23:53 metformin Allergy Unknown Verified 02/06/23 23:53 sulfamethoxazole Allergy Unknown Verified 02/06/23 23:53 [From Bactrim] trimethoprim [From Bactrim] Allergy Unknown Verified 02/06/23 23:53 Exam Narrative Exam Narrative: Psych-alert and oriented x 3. Attentive and appropriate, constitutionally normal, displays normal mood and affect per situation.? There are no obvious deficits in memory, reasoning, or intellect.? Skin-no obvious rashes, bruising, erythema noted to the patient's area of pain. Extremities- extremities are warm with minimal edema and palpable pulses. Lumbar-no significant tenderness to palpation noted in the lumbar spine and paraspinal musculature.? Pain is elicited with extension, and lateral rotation of the lumbar spine. Range of motion is slightly diminished with these motions due to pain. Facet loading maneuvers are positive on the right and do appear to be concordant with the patient's normal complaints of pain.? Coordination remains intact.? Gait remains non-antalgic. Assessment and Plan Assessment and Plan (1) Lumbar spondylosis: Plan 73yof who presents for evaluation. Notes that her pain has mostly resolved, but does have intermittent pain that radiates from right hip into right foot. Discussed that if pain were to worsen or become more consistent, would likely need to order lumbar MRI to assess for spinal pathology. She expressed understanding. Medications reviewed, no additional meds at this time. Follow up as needed.
== END 2023-05-31 12:50 | disposition home or self-care (01) ==
PROVIDERS: PCP Family Medicine; Visit Provider Anesthesiology Pain Medicine
DX: M47.816 Spondylosis without myelopathy or radiculopathy, lumbar region (principal)
CPT/HCPCS: G0463

== ENCOUNTER 2023-06-09 10:09 | Outpatient (OUT) | payer MEDICARE, SELFPAY ==
--- OUTSIDE RECORDS SUMMARY | 2023-06-09 10:14 | XMS_ITS | CCD ---
Author Name Unknown Address [address] [place] [address] Organization [facility] Care Team Providers Care 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 Name Role Phone BRUCE WALLER Primary Care Physician [phone] Elisha Carrasquillo NEIDA, DR ELISHA Lara Attending Unavailable CARRASQUILLO, DR ELISHA Lara Admitting Unavailable ZIEBER, DR CIPRIANO Soto Consulting Unavailable CARRASQUILLO, DR ELISHA Lara Primary Care Unavailable CARRASQUILLO, DR ELISHA Lara Consulting Unavailable CARRASQUILLO, DR ELISHA Lara Primary Care Unavailable CARRASQUILLO, DR ELISHA Lara Attending Unavailable GREENSBORO, DR BRYCE Garcia Consulting Unavailable CARRASQUILLO, DR ELISHA Lara Admitting Unavailable CARRASQUILLO, DR ELISHA Lara Consulting Unavailable CARRASQUILLO, DR ELISHA Lara Primary Care Unavailable CARRASQUILLO, DR ELISHA Lara Attending Unavailable ZIEBER, DR CIPRIANO Soto Consulting Unavailable CARRASQIULLO, DR ELISHA Lara Admitting Unavailable CARRASQUILLO, DR ELISHA Lara Consulting Unavailable DIAB ., ESA Consulting Unavailable DIAB ., ESA Attending Unavailable FURROCIO, DR BRUCE Porter Primary Care Unavailable DIAB ., ESA Admitting Unavailable FURLONG, DR BRUCE Porter Primary Care Unavailable HAY ., DR CHATTERJEE Consulting Unavailable HAY ., DR CHATTERJEE Attending Unavailable HAY ., DR CHATTERJEE Admitting Unavailable FALVO, JOSE M Consulting Unavailable FURMINDYNG, DR BRUCE Porter Primary Care Unavailable MARKER ., DR MCCONNELL Consulting Unavailable MARKER ., DR MCCONNELL Attending Unavailable MARKER ., DR MCCONNELL Admitting Unavailable SAID, BINDEON Consulting Unavailable CARRASQUILLO, DR ELISHA Lara Primary Care Unavailable LARRY ., DR PASTOR Consulting Unavailable LARRY ., DR PASTOR Attending Unavailable LARRY ., DR PASTOR Admitting Unavailable ZIEBER, DR CIPRIANO Soto Consulting Unavailable FURLONG, DR BRUCE Porter Primary Care Unavailable LARRY ., DR PASTOR Consulting Unavailable LARRY ., DR PASTOR Attending Unavailable LARRY ., DR PASTOR Admitting Unavailable FURMINDYNG, DR BRUCE Porter Primary Care Unavailable ASHOK .NORMA Attending Unavailable LOBITO YEE Consulting Unavailable NORMA STOVALL Admitting Unavailable NORMA STOVALL Consulting Unavailable ELISHA CARRASQUILLO Primary Care Physician Norma Pulido Attending Unavailable KRISTINE WESTON Attending Unavailab KRISTINE Benavides Attending UnavailKRISTINE Thomas Admitting UnavailKenji Hudson MD Attending Unavailable Elisha Carrasquillo MD Primary Care Provider [phone] Allergies Allergy Classification Reported Allergen(s) Allergy Type Date of Onset Reaction(s) Facility (20 sources) Amoxicillin; Translations: [amoxicillin] Drug Allergy 2 Eruption of skin (disorder), Hives, Rash [facility] (20 sources) cefdinir; Translations: [cefdinir] Drug Allergy 2 Eruption (morphologic abnormality), Rash, Hives [facility] (20 sources) Lisinopril; Translations: [lisinopril] Drug Allergy 2 Cough (finding), Cough [facility] (4 sources) metFORMIN; Translations: [metformin] Drug Allergy Other (qualifier value) [facility] (20 sources) Sulfamethoxazole / Trimethoprim; Translations: [sulfamethoxazole-tr imethoprim] Drug Allergy 2 Other (qualifier value), Other (See Comments) [facility] (1 source) Amino Acids Drug Allergy 3 [facility] (1 source) Amoxicillin Drug Allergy 1 [facility] (1 source) cefdinir Drug Allergy 3 [facility] (1 source) metFORMIN Drug Allergy 3 [facility] (1 source) Sulfamethoxazole / Trimethoprim Drug Allergy 3 [facility] (1 source) metFORMIN Drug Allergy 2 Other (See Comments) [facility] Medications Current Medications Medication Drug Class(es) Dates Sig (Normalized) Sig (Original) 600+D3 600-20 MG-MCG (15 sources) take 1 tablet by mouth once daily 600+D3 600-20 MG-MCG 1 tablet with a meal Orally Once a day Active [id number] 200 actuat albuterol 0.09 mg/actuat metered dose inhaler (1 source) beta2-Adrenergic Agonist take 2 puff(s) by inhalation every six hours as needed for wheezing albuterol (PROVENTIL HFA;VENTOLIN HFA) 90 mcg/actuation inhaler Inhale 2 puffs every 6 (six) hours as needed for wheezing. 0 Active alendronic acid 70 mg oral tablet (1 source) Bisphosphonate take 1 tablet by mouth in the morning alendronate (FOSAMAX) 70 mg tablet Take 1 tablet (70 mg total) by mouth every 7 days. Take in the morning with a full glass of water, on an empty stomach, and do not take anything else by mouth or lie down for the next 30 min. 0 Active ALPRAZolam 0.25 mg oral tablet (1 source) Benzodiazepine take 1 tablet by mouth once daily as needed for anxiety ALPRAZolam (XANAX) 0.25 mg tablet Take 1 tablet (0.25 mg total) by mouth nightly as needed for anxiety. 0 Active amLODIPine 5 mg oral tablet (20 sources) Dihydropyridine Calcium Channel Aileen Start: 06-04-2021 take 1 tablet by mouth in the morning amLODIPine (NORVASC) 5 mg tablet Take 1 tablet (5 mg total) by mouth in the morning. 90 tablet 1 06/11/2022 Active apixaban 5 mg oral tablet (6 sources) Factor Xa Inhibitor take 1 tablet by mouth every twelve hours Eliquis 5 MG 1 tablet Orally Twice a day for 30 days Active aspirin 81 mg oral tablet (4 sources) Platelet Aggregation Inhibitor, Nonsteroidal Anti-inflammatory Drug Start: 06-04-2021 take 1 tablet by mouth in the morning aspirin 81 mg capsule Take 1 tablet by mouth in the morning. 0 06/04/2021 Active Start: 06-04-2021 take 1 mg by mouth e very four hours aspirin 81 mg oral capsule mg cap(s), Oral, q4hr, Refills(s) 0 Start Date: 06/04/21 Status: Ordered atorvastatin 20 mg oral tablet (17 sources) HMG-CoA Reductase Inhibitor Start: 06-04-2021 take 1 mg by mouth once daily atorvastatin 20 mg Tab mg tab(s), Oral, Daily, Refills(s) 0 Start Date: 06/04/21 Status: Ordered benzonatate 200 mg oral capsule (3 sources) Non-narcotic Antitussive Start: 05-19-2023 take 1 capsule by mouth every eight hours Benzonatate 200 MG 1 capsule Orally Three times a day for 10 day(s) Apr, Active calcium carbonate 1500 mg / cholecalciferol 800 unt oral tablet (3 sources) Vitamin D take 1 tablet by mouth every twenty-four hours 600+D3 600-20 MG-MCG 1 tablet with a meal Orally Once a day Active ciprofloxacin 500 mg oral tablet (3 sources) Quinolone Antimicrobial Start: 08-27-2022 take 1 tablet by mouth every twelve hours Ciprofloxacin HCl 500 MG 1 tablet Orally every 12 hrs for 7 days Aug, Active dextromethorphan hydrobromide 2 mg/ml / guaiFENesin 20 mg/ml oral solution (1 source) Uncompetitive [place] te Receptor Antagonist, Sigma-1 Agonist Start: 07-03-2022 take 5 mL by mouth every four hours as needed dextromethorphan-g uaiFENesin (TUSSIN DM) 10-100 mg/5 mL liquid Take 5 mL by mouth every 4 (four) hours as needed (cough and congestion). 240 mL 2 07/03/2022 Active docusate sodium 100 mg oral capsule (4 sources) Start: 03-27-2022 take 1 capsule by mouth in the morning docusate sodium (DULCOLAX STOOL SOFTENER, DSS,) 100 mg capsule Indications: Drug-induced constipation Take 1 capsule (100 mg total) by mouth in the morning. 90 capsule 1 03/27/2022 Active Start: 06-04-2021 take 1 mg by mouth twice daily Dulcolax Stool Softener mg, Oral, BID, Refills(s) 0 Start Date: 06/04/21 Status: Ordered fluconazole 100 mg oral tablet (2 sources) Azole Antifungal Start: 09-08-2022 take 1 tablet by mouth every twenty-four hours Fluconazole 100 MG 1 tablet Orally daily for 7 days Aug, Active fluticasone propionate 0.05 mg/actuat metered dose nasal spray (1 source) Corticosteroid take 1 spray(s) nasal route in the morning fluticasone propionate (FLONASE) 50 mcg/actuation nasal spray Administer 1 spray into each nostril in the morning. 0 Active glimepiride 1 mg oral tablet (2 sources) Sulfonylurea Start: 06-04-2021 take 1 tablet by mouth once daily glimepiride 1 mg Tab mg tab(s), Oral, Daily, Refills(s) 0 Start Date: 06/04/21 Status: Ordered losartan potassium 25 mg oral tablet (19 sources) Angiotensin 2 Receptor Aileen take 1 tablet by mouth every twenty-four hours Losartan Potassium 25 MG 1 tablet Orally Once a day Active take 1 tablet by mouth in the mo rning losartan (COZAAR) 50 mg tablet Take 1 tablet (50 mg total) by mouth in the morning. 0 Active meclizine hydrochloride 25 mg oral tablet (20 sources) Antiemetic Start: 06-04-2021 take 1 mg by mouth three times daily meclizine 25 mg Tab mg tab(s), Oral, TID, Refills(s) 0 Start Date: 06/04/21 Status: Ordered take 1 tablet by rebekah th every twelve hours Meclizine HCl 25 MG 1 tablet as needed Orally every 12 hrs Active meclizine (ANTIV ERT) 25 mg tablet Chew 1 tablet (25 mg total) and swallow 3 (three) times a day as needed for dizziness. 0 Active meloxicam 7.5 mg oral tablet (20 [...] Ordered metFORMIN hydrochloride 500 mg oral tablet (20 sources) Biguanide Start: 06-04-2021 take 1 tablet by mouth in the morning metFORMIN (GLUCOPHAGE) 500 mg tablet Take 1 tablet (500 mg total) by mouth in the morning. 60 tablet 5 06/29/2022 Active take 1 tablet by rebekah th every twenty-four hours metFORMIN HCl 500 MG 1 tablet with a meal Orally Once a day for 90 days Active montelukast 10 mg oral tablet (1 source) Leukotriene Receptor Antagonist take 1 tablet by mouth once daily montelukast (SINGULAIR) 10 mg tablet Take 1 tablet (10 mg total) by mouth nightly. 0 Active pioglitazone 15 mg oral tablet (19 sources) Peroxisome Proliferator Receptor alpha Agonist, Peroxisome Proliferator Receptor gamma Agonist, Thiazolidinedione take 1 tablet by mouth every twenty-four hours Pioglitazone HCl 15 MG 1 tablet Orally Once a day Active PREDNISOLONE-MOXIFLO X-BROMFEN OPHT (1 source) PREDNISOLONE-MOX IFLO X-BROMFEN OPHT Instill 1 drop into affected eye twice a day for 1 week then once a day for 3 weeks immediately following surgery 0 Active tiZANidine 4 mg oral tablet (5 sources) Central alpha-2 Adrenergic Agonist Start: take 1 tablet by mouth once daily for pain tiZANidine (ZANAFLEX) 4 mg tablet Indications: Spondylosis of lumbar region without myelopathy or radiculopathy Take 1 tablet (4 mg total) by mouth nightly. Use at night for acute back pain 10 tablet 1 03/27/2022 Active Vitamin D3 (3 sources) Start: Vitamin D3 Refills(s) 0 Start Date: 06/04/21 Status: Ordered Problems Active Problems Problem Classification Problem Date Documented Da te Episodic/Chronic Anxiety disorders (1 source) Generalized anxiety disorder; Translations: [Generalized anxiety disorder] Onset: 03-27-2022 03-27-2022 Chronic Diabetes mellitus with complications (20 sources) Type 2 diabetes mellitus; Translations: [Type 2 diabetes mellitus with hyperglycemia] Onset: 08-29-2015 Chronic Diabetes mellitus without complication (1 source) Type 2 diabetes mellitus without complications; Translations: [TYPE 2 DM WITHOUT COMPLICATIONS] Onset: 03-10-2022 Chronic Disorders of lipid metabolism (20 sources) Mixed hyperlipidemia; Translations: [Mixed hyperlipidemia] Onset: 03-10-2022 Chronic Diverticulosis and diverticulitis (1 source) Diverticular disease; Translations: [Diverticulosis of intestine, part unspecified, without perforation or abscess without bleeding] Onset: 03-27-2022 03-27-2022 Chronic Essential hypertension (20 sources) Essential hypertension; Translations: [Essential (primary) hypertension] Onset: 08-26-2020 Chronic Genitourinary symptoms and ill-defined conditions (3 sources) Unspecified urinary incontinence; Translations: [Urinary incontinence] Onset: 11-26-2021 Chronic Headache; including migraine (1 source) Tension-type headache; Translations: [Tension-type headache, unspecified, not intractable] Onset: 03-27-2022 03-27-2022 Chronic Mood disorders (1 source) Depressive disorder; Translations: [Depressive disorder] Onset: 03-27-2022 03-27-2022 Chronic Nonmalignant breast conditions (1 source) Unspecified lump in the right breast, upper inner quadrant; Translations: [UNS LUMP IN RT BREAST UPR INR QUAD] Onset: 09-29-2022 Episodic Nonspecific chest pain (4 sources) Other chest pain; Translations: [OTHER CHEST PAIN] Onset: 07-16-2022 Episodic Osteoarthritis (1 source) Degenerative joint disease of shoulder region; Translations: [Primary osteoarthritis, unspecified shoulder] Onset: 03-19-2021 03-27-2022 Chronic Osteoporosis (1 source) Senile osteoporosis; Translations: [Age-related osteoporosis without current pathological fracture] Onset: 03-27-2022 03-27-2022 Chronic Other acquired deformities (1 source) Contracture of joint of right ankle; Translations: [Contracture, right ankle] Onset: 03-27-2022 03-27-2022 Chronic Other aftercare (1 source) Long-term current use of aspirin; Translations: [terminal make up operator (current) use of aspirin] Onset: 11-26-2021 Episodic Other aftercare (1 source) penitentiary (current) use of oral hypoglycemic drugs; Translations: [LYFT DRIVER USE ORAL HYPOGLYCEMIC DX] Onset: 07-20-2022 Episodic Other aftercare (1 source) Other detention (current) drug therapy; Translations: [OTH DETENTION CURRENT DRUG THERAPY] Onset: 07-20-2022 Episodic Other [...] source) Cyst of kidney 11-26-2022 Episodic Other ear and sense organ disorders (1 source) Chronic non-infective otitis externa; Translations: [Other otitis externa, bilateral] Onset: 03-27-2022 03-27-2022 Chronic Other ear and sense organ disorders (1 source) Sensorineural hearing loss, bilateral; Translations: [Sensorineural hearing loss, bilateral] Onset: 03-27-2022 03-27-2022 Chronic Other hereditary and degenerative nervous system conditions (1 source) Finding of scapular structure; Translations: [Other specified extrapyramidal and movement disorders] Onset: 03-27-2022 03-27-2022 Chronic Other inflammatory condition of skin (1 source) Psoriasis; Translations: [Psoriasis, unspecified] Onset: 03-27-2022 03-27-2022 Chronic Other nervous system disorders (1 source) Mortons neuroma of right foot; Translations: [Lesion of plantar nerve, right lower limb] Onset: 03-27-2022 03-27-2022 Chronic Other screening for suspected conditions (not mental disorders or infectious disease) (10 sources) Encounter for screening mammogram for malignant neoplasm of breast; Translations: [Other abnormal and inconclusive findings on diagnostic imaging of breast] Onset: 01-27-2022 Episodic Other upper respiratory disease (1 source) Allergic rhinitis; Translations: [Allergic rhinitis, unspecified] Onset: 03-27-2022 03-27-2022 Chronic Other upper respiratory infections (1 source) Acute maxillary sinusitis, unspecified Episodic Residual codes; unclassified (4 sources) Asymptomatic menopausal state; Translations: [ASYMPTOMATIC MENOPAUSAL STATE] Onset: 08-11-2022 Episodic Spondylosis; intervertebral disc disorders; other back problems (1 source) Cervical disc disorder; Translations: [Cervical disc disorder, unspecified, unspecified cervical region] Onset: 08-29-2015 03-27-2022 Chronic Spondylosis; intervertebral disc disorders; other back problems (3 sources) Cervicalgia; Translations: [Radiculopathy, lumbar region] Onset: 03-10-2022 Episodic Unclassified (3 sources) Long-term current use of aspirin 06-04-2021 Unclassified (1 source) LOW BACK PAIN, UNSPECIFIED; Translations: [LOW BACK PAIN, UNSPECIFIED] Onset: 08-15-2022 Unclassified (1 source) Asymptomatic microscopic hematuria 11-26-2022 Unclassified (1 source) Finding of sensation of bladder 12-09-2022 Varicose veins of lower extremity (13 sources) Varicose veins of lower extremity; Translations: [Varicose veins of bilateral lower extremities with pain] Episodic Past or Other Problems Problem Classification Problem Date Documented Date Episodic/Chronic Allergic reactions (1 source) Eczema; Translations: [Dermatitis, unspecified] Onset: 2 03-27-2022 Episodic Conditions associated with dizziness or vertigo (5 sources) Dizziness and giddiness; Translations: [Benign paroxysmal positional vertigo] Onset: 6 Episodic Disorders of teeth and jaw (1 source) Temporomandibular joint disorder; Translations: [Unspecified temporomandibular joint disorder, unspecified side] Onset: 8 03-27-2022 Episodic E Codes: Fall (1 source) Fall on same level from slipping, tripping and stumbling without subsequent striking against object, initial encounter; Translations: [FALL SAME LVL SLIP NO STRK OBJ INIT] Onset: 2 Episodic Gastritis and duodenitis (1 source) Duodenitis; Translations: [Duodenitis without bleeding] Onset: 1 03-27-2022 Episodic Genitourinary symptoms and ill-defined conditions (6 sources) Microscopic hematuria; Translations: [Asymptomatic microscopic hematuria] Onset: 2 Episodic Headache; including migraine (6 sources) Headache; including migraine; Translations: [HEADACHE UNSPECIFIED] Onset: 2 Immunizations and screening for infectious disease (1 source) Encounter for screening for human papillomavirus (HPV); Translations: [ENC SCREENING HUMAN PAPILLOMAVIRUS] Onset: 2 Episodic Mood disorders (1 source) Mood disorders Onset: 3 07-23-2022 Nutritional deficiencies (1 source) Cobalamin deficiency; Translations: [Deficiency of other specified B group vitamins] Onset: 2 03-27-2022 Episodic Other and unspecified benign neoplasm (1 source) Cavernous hemangioma; Translations: [Hemangioma unspecified site] Onset: 2 03-27-2022 Episodic Other bone disease and musculoskeletal deformities (1 source) Cervical somatic dysfunction; Translations: [Segmental and somatic dysfunction of cervical region] Onset: 2 04-13-2022 Episodic Other bone disease and musculoskeletal deformities (1 source) Segmental and somatic dysfunction; Translations: [Segmental and somatic dysfunction of thoracic region] Onset: 2 04-13-2022 Episodic Other circulatory disease (1 source) Elevated blood pressure; Translations: [Elevated blood-pressure reading, without diagnosis of hypertension] Onset: 9 03-27-2022 Episodic Other connective tissue disease (1 source) Muscle pain; Translations: [Myalgia, unspecified site] Onset: 2 03-27-2022 Episodic Other injuries and conditions due to external causes (1 source) Unspecified injury of head, initial encounter; Translations: [UNSPECIFIED INJURY HEAD INITIAL ENC] Onset: 2 Episodic Other nutritional; endocrine; and metabolic disorders (1 source) Overweight; Translations: [Overweight] Onset: 2 03-27-2022 Episodic Other upper respiratory disease (1 source) Deviated nasal septum; Translations: [Deviated nasal septum] Onset: 9 03-27-2022 Episodic Residual codes; unclassified (1 source) Acquired absence of both cervix and uterus; Translations: [ACQUIRED ABSENCE BOTH CERVIX AND UTERUS] Onset: 2 Episodic Unclassified (1 source) Low back pain, unspecified M54.50 Unclassified (1 source) Vaginal yeast infection B37.31 Unclassified (1 source) 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 Results Test Name Value Interpretation Reference Range Facility RAD - Ultrasound Reporton RAD - Ultrasound Report [id number] [facility] C Urineon 12-11-2022 Bacteria identified Cx Nom (U) Microbiology PROCEDURE: Urine Culture [R1] SOURCE: U Random BODY SITE: COLLECTED DATE/TIME: 12/09/2022 15:29 EDT RECEIVED DATE/TIME: 12/09/2022 18:26 EDT START DATE/TIME: 12/09/2022 18:26 EDT FREE TEXT SOURCE: SADAF WESTON PA-C, PA-C, SADAF Lara FINAL REPORTS Final Report [] Verified Date/Time: 12/11/2022 11:20 EDT 1,000 cfu/ml Mixed skin contaminants Performing Locations R1: This test was performed at: [facility], [address] [place] [address], [facility] , , [facility] Comment on above: Performed By: #### 2 [id number] #### [facility] [address] [place] [address] Ambulatory Visit Summaryon 0 12-09-2022 Ambulatory Visit Summary PEARL JONES :1950 Visit Date:12/09/2022 Ambulatory Visit Instructions Your Diagnosis Asymptomatic microscopic hematuria Renal cyst Leaking of urine Feeling of incomplete bladder emptying Aspirin long-term use Tests Performed Urnls Dip Stick Auto w/o Microscopy POC [id number] Your Care Team Attending Physician - SADAF WESTON PA-C Primary Care Physician - ELISHA CARRASQUILLO MD This Is Your Medications List Contact prescribing [...] Follow-Up Appointments Wednesday 9:00 AM EDT With: Norma Pulido MD Where: [facility] Normal [facility] Patient Educationon 12-10-19 Patient Education Urology Hematuria, [...] these instructions at home: Medicines ? Take riju-neh-jkkjefc and prescription medicines only as told by [...] the blood stops without treatment. ? Take qwaf-pdi-uimdvwo and prescription medicines only as told by your health care provider. ? Drink enough fluid to keep your urine pale yellow. This information is not intended to replace advice given to you by your health care provider. Make sure you discuss any questions you have with your health care provider. Document Revised: 01/08/2021 Document Reviewed: 01/08/2021 [employer] Patient Education ? 2022 [employer] Normal [facility] URINALYSISOrdered By: Stephanie moy on 12-09-2022 Bilirubin Ql (U) Negative (12/09/22 3:29 PM) Normal Negative [facility] Auto SS Clarity (U) Clear (12/09/22 3:29 PM) Normal Clear [facility]A Auto SS Color (U) Yellow (12/09/22 3:29 PM) Normal Yellow [facility] UA Auto SS Crystals LM Ql (Urine [...] Interpretation Code Negative [facility] UA Auto SS Clemons.plasma/Lithi um.RBC (Bld) [Mass ratio] 0-3 /HPF Normal 0-3/HPF [facility] UA Auto SS Mucus Ql (Urine sed) 2+ (12/09/22 3:29 PM) Normal FT UA Auto SS Nitrite Ql (U) Negative (12/09/22 3:29 PM) Normal Negative [facility] UA Auto SS pH (U) 6.0 *NA* (12/09/22 3:29 PM) Invalid Interpretation Code 5.0 - 9.0 FT UA Auto SS Protein (U) [Mass/Vol] Negative (12/09/22 3:29 PM) Normal Negative [facility] UA Auto SS Specific gravity (U) [Rel density] 1.015 *NA* (12/09/22 3:29 PM) Invalid Interpretation Code 1.005 - 1.030 [facility] UA Auto SS UA Spec Desc Random Urine (12/09/22 3:29 PM) Normal [facility] UA Auto SS Urobilinogen Qn (U) [id number] {Tyrell'U}/dL Normal 0.0 - 1.0 EU/dL FT UA Auto SS WBC Auto Ql (U) Negative (12/09/22 3:29 PM) Normal Negative [facility] UA Auto SS WBC LM.HPF (Urine sed) [#/Area] 0-5 /HPF Normal 0-5/HPF [facility] UA Auto SS Urinalysison 12-09-2022 Bilirubin Ql (U) Negative Normal Negative [facility] Comment on above: Performed By: #### 1 [id number] #### [facility] [address] [place] [address] Clarity (U) CLEAR Normal Clear [facility] Comment on above: Performed By: #### 1 [id number] #### [facility] [address] [place] [address] Color (U) YELLOW Normal Yellow [facility] Comment on above: Performed By: #### 1 [id number] #### [facility] [address] [place] [address] Crystals LM Ql (Urine sed) Present Normal [facility] Comment on above: Performed By: #### 1 [id number] #### [facility] [address] [place] [address] Epithelial cells.squamous LM.HPF (Urine sed) [#/Area] 0-2 Normal 0-2 [facility] Comment on above: Performed By: #### 1 [id number] #### [facility] [address] [place] [address] Glucose Test strip (U) [Mass/Vol] 1+ Abnormal Negative [facility] Comment on above: Performed By: #### 1 [id number] #### [facility] [address] [place] [address] Hemoglobin Ql (U) 2+ Abnormal Negative [facility] Comment on above: Performed By: #### 1 [id number] #### [facility] [address] [place] [address] Ketones (U) [Mass/Vol] TRACE Invalid Interpretation Code Negative [facility] Comment on above: Performed By: #### 1 [id number] #### [facility] [address] [place] [address] Clemons.plasma/Lithi um.RBC (Bld) [Mass ratio] 0-3 Normal 0-3 [facility] Comment on above: Performed By: #### 1 [id number] #### [facility] [address] [place] [address] Mucus Ql (Urine sed) 2+ Normal [facility] Comment on above: Performed By: #### 1 [id number] #### [facility] [address] [place] [address] Nitrite Ql (U) Negative Normal Negative [facility] Comment on above: Performed By: #### 1 [id number] #### [facility] [address] [place] [address] pH (U) 6.0 [pH] Invalid Interpretation Code 5.0-9.0 [facility] Comment on above: Performed By: #### 1 [id number] #### [facility] [address] [place] [address] Protein (U) [Mass/Vol] Negative Normal Negative [facility] Comment on above: Performed By: #### 1 [id number] #### [facility] [address] [place] [address] Specific gravity (U) [Rel density] 1.015 Invalid Interpretation Code 1.005-1.030 [facility] Comment on above: Performed By: #### 1 [id number] #### [facility] [address] [place] [address] Type of Urine collection method Random Urine Normal [facility] Comment on above: Performed By: #### 1 [id number] #### [facility] [address] [place] [address] Urobilinogen Qn (U) 0.2 {Tyrell'U}/dL Normal 0.0-1.0 [facility] Comment on above: Performed By: #### 1 [id number] #### [facility] [address] [place] [address] WBC Auto Ql (U) Negative Normal Negative [facility] Comment on above: Performed By: #### 1 [id number] #### [facility] [address] [place] [address] WBC LM.HPF (Urine sed) [#/Area] 0-5 Normal 0-5 [facility] Comment on above: Performed By: #### 1 [id number] #### [facility] [address] [place] [address] Urology Office/Clinic Noteon 12-09-2022 Urology Office/Clinic Note [...] cystoscopy, urine cytology and CT urogram from [facility] 06/10/21 noted no filling defects or [...] 25 mL. 5. 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 Follow up in 1 yr. All questions/concerns were discussed. Pt to call the office if she encounters any issues prior. Pt acknowledges understanding. Follow-up With When Contact Information SADAF WESTON PA-C, URL In 1 day [address] [facility] [place] [address] Additional Instructions: Patient Education Hematuria, Adult Documentation recorded by the jenny Samuel accurately reflects the services(s) I performed and decisions made by me. Authenticated by Sadaf Weston PA-C on 12/09/2022 16:21:44. IMaría, personally scribed for Sadaf Weston PA-C on [...] Immunizations Vaccine Date Status Comments SARS-CoV-2 mRNA (tozinameran 5y-11y) vac - Not Given Postpone due to refusal (more content not included)... Normal [facility] Comment on above: Result Comment: Elec tronically Signed By: SADAF WESTON PA-C\.br\Date and Time Signed: 12/09/22 16:21 EDT\.br\Electronically Co-Signed By: María Samuel\.br\Date and Time Co-Signed: 12/09/22 15:13 EDT Reminderson 12-01-2022 Reminders - From: Divya Pitt To: PROSPER - Recallsofi Pulido; Sent: 11/26/2021 09:02:57 EDT Show up: 11/05/2022 09:02:00 EDT Subject: renal US Reminder/Recall schedule prior to patients 12/02/2022 office visit Renal US scheduled for 12/02/22 @ [facility] Follow up has been rescheduled with VASILIY 12/09/22. Normal [facility] MG MAMM RT DIAG FUon 023 MG MAMM RT DIAG FU Patient: PEARL JONES Exam Date: 10/05/2022 : 1950 Gender:F Ordering : DR ELISHA CARRASQUILLO M.D. Admission #: [id number] Family : Order #: [id number] CLICK HERE TO VIEW EXAM RADIOLOGY REPORT [...] Treatments None Family Cancers None LOCATION: [facility] BREAST COMPOSITION: Heterogeneously dense,which may obscure small [...] M.D. on 10/05/2022 at 08:35 Normal [facility] US BREAST RIGHT LIMITEDon US BREAST RIGHT LIMITED Patient: PEARL JONES Exam Date: 10/05/2022 : 1950 Gender:F Ordering : DR ELISHA CARRASQUILLO M.D. Admission #: [id number] Family : Order #: [id number] CLICK HERE TO VIEW EXAM RADIOLOGY REPORT [...] Treatments None Family Cancers None LOCATION: [facility] BREAST COMPOSITION: Heterogeneously dense,which may obscure small [...] M.D. on 10/05/2022 at 08:35 Normal [facility] MG MAMM SCREEN 3D SALMA CADon 09-22-2022 MG MAMM SCREEN 3D SALMA CAD Patient: PEARL JONES Exam Date: 09/22/2022 : 1950 Gender:F Ordering : DR ELISHA CARRASQUILLO M.D. Admission #: [id number] Family : Order #: [id number] CLICK HERE TO VIEW EXAM RADIOLOGY REPORT [...] Treatments None Family Cancers None LOCATION: [facility] BREAST COMPOSITION: Heterogeneously dense,which may obscure small [...] MD on 09/23/2022 at 08:48 Normal [facility] CBC AUTO DIFFon 08-12-2022 BASO # 0.0 103/ul Normal 0.0-0.1 [facility] Comment on above: Performed By: #### C BC ####[facility] [address] [place] [id number]. Silvino Etienne Basophils/100 WBC (Bld) 0.7 % Normal 0.2-2.0 [facility] Comment on above: Performed By: #### C BC ####[facility] [address] [place] [id number]. Silvino Etienne EO # 0.1 103/ul Normal 0.0-0.7 [facility] Comment on above: Performed By: #### C BC ####[facility] [address] [place] [address]Dr. Suzyoriana Clifton Eosinophils/100 WBC (Bld) 2.1 % Normal 0.9-7.0 [facility] Comment on above: Performed By: #### C BC ####[facility] [address] [place] [address]Dr. Silvino Clifton Erythrocyte distribution width (RBC) [Ratio] 12.3 % Normal 11.0-15.0 [facility] Comment on above: Performed By: #### C BC ####[facility] [address] [place] [phone]. Silvino Clifton Hematocrit (Bld) [Volume fraction] 38.2 % Normal 36.0-48.0 [facility] Comment on above: Performed By: #### C BC ####[facility] [address] [place] [id number]. Silvino Clifton Hemoglobin (Bld) [Mass/Vol] 12.8 g/dL Normal 12.0-16.0 [facility] Comment on above: Performed By: #### C BC ####[facility] [address] [place] [address]Dr. Silvino Clifton IG # 0.02 10e3/ul Normal 0.00-0.03 [facility] Comment on above: Performed By: #### C BC ####[facility] [address] [place] [address]Dr. Silvino Clifton IG % 0.3 % Normal 0.0-0.5 [facility] Comment on above: Performed By: #### C BC ####[facility] [address] [place] [address]Dr. Silvino Clifton LYMPH # 2.2 103/ul Normal 1.2-3.8 [facility] Comment on above: Performed By: #### C BC ####[facility] [address] [place] [id number]. Silvino Clifton Lymphocytes/100 WBC (Bld) 35.4 % Normal 20.5-60.0 [facility] Comment on above: Performed By: #### C BC ####[facility] [address] [place] [id number]. Silvino Clifton MANUAL DIFF REQ NO Normal [facility] Comment on above: Performed By: #### C BC ####[facility] [address]rec[address] [place] [address]Dr. Silvino Clifton MCH (RBC) [Entitic mass] 28.0 pg Normal 26.7-34.0 [facility] Comment on above: Performed By: #### C BC ####[facility] [address] [place] [phone]. Silvino Clifton MCHC (RBC) [Mass/Vol] 33.5 g/dL Normal 29.9-35.2 [facility] Comment on above: Performed By: #### C BC ####[facility] [address] [place], [place] [address]Dr. Silvino Clifton MCV (RBC) [Entitic vol] 83.6 fL Normal 81.0-99.0 [facility] Comment on above: Performed By: #### C BC ####[facility] [address] [place] [address]Dr. Silvino Etienne MONO # 0.4 103/ul Normal 0.3-0.8 [facility] Comment on above: Performed By: #### C BC ####[facility] [address] [place] [address]Dr. Silvino Clifton Monocytes/100 WBC (Bld) 7.2 % Normal 1.7-12.0 [facility] Comment on above: Performed By: #### C BC ####[facility] [address] [place] [phone]. Silvino Clifton NEUT # 3.3 103/ul Normal 1.4-6.5 [facility] Comment on above: Performed By: #### C BC ####[facility] [address] [place] [address]Dr. Silvino Clifton Neutrophils/100 WBC (Bld) 54.3 % Normal 43.0-75.0 [facility] Comment on above: Performed By: #### C BC ####[facility] [address] [place] [address]Dr. Silvino Clifton Platelet mean volume (Bld) [Entitic vol] 11.3 fL Normal 9.5-13.5 [facility] Comment on above: Performed By: #### C BC ####[facility] [address] [place] [phone]. Silvino Clifton PLT 208 103/ul Normal 150-450 [facility] Comment on above: Performed By: #### C BC ####[facility] [address] [place] [address]Dr. Silvino Clifton RBC 4.57 106/ul Normal 4.20-5.40 [facility] Comment on above: Performed By: #### C BC ####[facility] [address] [place] [address]Dr. Silvino Clifton WBC 6.2 103/ul Normal 4.0-11.0 [facility] Comment on above: Performed By: #### C BC ####[facility] [address] [place] [address]Dr. Silvino Clifton GLYCOHEMOGLOBIN A1Con 2022 ADA RECOMMENDATION SEE BELOW Normal [facility] Comment on above: Result Comment: ADA RECOMMENDED LIMIT 4.0 - 6.0 ADA THERAPEUTIC TARGET < 7.0 ACTION SUGGESTED > 7.0 Performed By: #### A 1C #### [facility] [address] [place] [address] [address] Silvino Clifton Glucose [Mass/Vol] 169 mg/dL Normal [facility] Comment on above: Performed By: #### A 1C #### [facility] [address] [place] [address] [address] Silvino Clifton HbA1c (Bld) [Mass fraction] 7.5 % Critically high 4.5-6.2 [facility] Comment on above: Performed By: #### A 1C #### [facility] [address] [place] [address] [address] Silvino Clifton LIPID PROFILEon 08-12-2022 CHOL-HDL RATIO NORM SEE BELOW Normal [facility] Comment on above: Result Comment: 3.3 - 4.4 LOW RISK 4.4 - 7.1 AVERAGE RISK 7.1 - 11.0 MODERATE RISK >11.0 HIGH RISK Performed By: #### Hang Porter, CMP, LIPID ####[facility] [address] [place] [phone]. Silvino Clifton Cholesterol [Mass/Vol] 185 mg/dL Normal <=200 [facility] Comment on above: Performed By: #### Hang Porter, CMP, LIPID ####[facility] [address] [place] [phone]. Silvino Clifton Cholesterol in HDL [Mass/Vol] 58 mg/dL Normal 40-60 [facility] Comment on above: Performed By: #### Hang Porter, CMP, LIPID ####[facility] [address] [place] [address]Dr. Silvino Clifton Cholesterol in LDL [Mass/Vol] 95.4 mg/dL Normal [facility] Comment on above: Performed By: #### Hang Porter, CMP, LIPID ####[facility] [address] [place] [phone]. Silvino Clifton Cholesterol.total/Ch olesterol in HDL [Mass ratio] 3.2 {ratio} Normal [facility] Comment on above: Performed By: #### Hang Porter, CMP, LIPID ####[facility] [address] [place] [phone]. Silvino Clifton HDL NORMAL > or = 60 mg/dl - LO W CARDIOVASCULAR RISK <40 mg/dl - HIGH CARDIOVASCULAR RISK Normal [facility] Comment on above: Performed By: #### aHng Porter, CMP, LIPID ####[facility] [address] [place] [address]Dr. Silvino Clifton LDL CALC NORMAL SEE BELOW Normal [facility] Comment on above: Result Comment: <100 mg/dl OPTIMAL 100 - 129 mg/dl NEAR OR ABOVE OPTIMAL 130 - 159 mg/dl BORDERLINE HIGH 160 - 189 mg/dl HIGH >190 mg/dl VERY HIGH Performed By: #### Hang Porter, CMP, LIPID ####[facility] [address] [place] [address]Dr. Silvino Clifton Triglyceride [Mass/Vol] 158 mg/dL Critically high <=150 [facility] Comment on above: Performed By: #### Hang Porter CMP, LIPID ####[facility] [address] [place] [address]Dr. Silvino Clifton VLDL CALC 31.6 mg/dL Normal [facility] Comment on above: Performed By: #### Hang Porter CMP, LIPID ####[facility] [address] [place] [address]Dr. Silvino Clifton MAGNESIUMon 08-12-2022 Magnesium [Mass/Vol] 1.6 mg/dL Critically low 1.8-2.4 [facility] Comment on above: Performed By: #### Hang Porter, CMP, LIPID ####[facility] [address]ul[address] [place] [address]Dr. Silvino Clifton PROF 14(COMP METB)on 023 Albumin [Mass/Vol] 4.0 g/dL Normal 3.4-5.0 [facility] Comment on above: Performed By: #### Hang Porter CMP, LIPID ####[facility] [address]rzy[address] [place] [address]Dr. Silvino Clifton Albumin/Globulin [Mass ratio] 1.2 {ratio} Normal [facility] Comment on above: Performed By: #### Hang Porter, CMP, LIPID ####[facility] [address]wr[address] [place] [address]Dr. Silvino Clifton ALP [Catalytic activity/Vol] 61 U/L Normal 46-116 [facility] Comment on above: Performed By: #### M G, CMP, LIPID ####[facility] [address]is[address] [place] [address]Dr. Silvino Clifton ALT [Catalytic activity/Vol] 17 U/L Normal 14-59 [facility] Comment on above: Performed By: #### M G, CMP, LIPID ####[facility] F[address]svfjjip[address] [place] [address]Dr. Silvino Clifton Anion gap [Moles/Vol] 11.8 mmol/L Normal [facility] Comment on above: Performed By: #### M G, CMP, LIPID ####[facility] [address]ev[address] [place] [address]Dr. Suzyoriana Clifton AST [Catalytic activity/Vol] 16 U/L Normal 15-37 [facility] Comment on above: Performed By: #### M G, CMP, LIPID ####[facility] [address]orphsojb[address] [place] [address]Dr. Silvino Clifton Bilirubin [Mass/Vol] 0.4 mg/dL Normal 0.2-1.0 [facility] Comment on above: Performed By: #### M G, CMP, LIPID ####[facility] [address]wb[address] [place] [address]Dr. Silvino Clifton Calcium [Mass/Vol] 9.3 mg/dL Normal 8.5-10.1 [facility] Comment on above: Performed By: #### M G, CMP, LIPID ####[facility] [address]ul[address] [place] [address]Dr. Suzyoriana Clifton Chloride [Moles/Vol] 106 mmol/L Normal 98-107 [facility] Comment on above: Performed By: #### M G, CMP, LIPID ####[facility] [address] [place] [address]Dr. Silvino Clifton CO2 [Moles/Vol] 28.3 mmol/L Normal 21.0-32.0 [facility] Comment on above: Performed By: #### M G, CMP, LIPID ####[facility] [address]xh[address] [place] [address]Dr. Silvino Clifton Creatinine [Mass/Vol] 0.72 mg/dL Normal 0.55-1.02 [facility] Comment on above: Performed By: #### M G, CMP, LIPID ####[facility] [address] [place] [address]Dr. Silvino Clifton EGFR-AF GEORGIAN >60 Normal >=60 [facility] Comment on above: Performed By: #### M G, CMP, LIPID ####[facility] [address]altw[address] [place] [address]Dr. Silvino Clifton EGFR-NON AF GEORGIAN >60 Normal >=60 [facility] Comment on above: Performed By: #### M G, CMP, LIPID ####[facility] S[address]zpcu[address] [place] [address]Dr. Silvino Clifton Globulin (S) [Mass/Vol] 3.3 g/dL Normal [facility] Comment on above: Performed By: #### M G, CMP, LIPID ####[facility] [address] [place], [place] [address]Dr. Silvino Clifton Glucose [Mass/Vol] 167 mg/dL Critically high 74-106 [facility] Comment on above: Performed By: #### M G, CMP, LIPID ####[facility] [address]xc[address] [place] [address]Dr. Silvino Clifton Potassium [Moles/Vol] 4.1 mmol/L Normal 3.5-5.1 [facility] Comment on above: Performed By: #### M G, CMP, LIPID ####[facility] [address] [place], [place] [address]Dr. Silvino Clifton Protein [Mass/Vol] 7.3 g/dL Normal 6.4-8.2 [facility] Comment on above: Performed By: #### M G, CMP, LIPID ####[facility] [address]qtf[address] [place] [address]Dr. Silvino Clifton Sodium [Moles/Vol] 142 mmol/L Normal 136-145 [facility] Comment on above: Performed By: #### M G, CMP, LIPID ####[facility] [address] [place], [place] [address]Nh. Silvino Clifton Urea nitrogen [Mass/Vol] 13.0 mg/dL Normal 7.0-18.0 [facility] Comment on above: Performed By: #### M G, CMP, LIPID ####[facility] [address] [place], [place] [address]Wz. Silvino Clifton Urea nitrogen/Creatinine [Mass ratio] 18.1 mg/mg Normal [facility] Comment on above: Performed By: #### M G, CMP, LIPID ####[facility] [address] [place], [place] [address]Or. Silvino Clifton XR LSPINE 2_3 VIEWSon 2022 [...] by: CIPRIANO MENON Date: 2022-08-12 09:32 Normal [facility] XR DEXA BONE DENSITYon 08-11 [...] by: CIPRIANO MENON Date: 2022-08-11 13:51 Normal [facility] CT CSPINE WO CONon CT [...] JOSE M JESUS Date: 2022-03-09 11:40 Normal [facility] CT HEAD WO CONon 03-09-2022 [...] JOSE M JESUS Date: 2022-03-09 11:29 Normal [facility] PAP ACOG PANEL 2: 30 to 65on 01-30-2022 . . Normal [facility] Comment on above: Performed By: #### 4 [id number] ####[facility] [address] [place], [place] [address]DrNatividad Clifton Age Gdln ACOG Testing Comment Normal [facility] Comment on above: Result Comment: <21 or >65 or no age provided Performed By: #### 4 [id number] ####[facility] [address] [place], [place] [address]DrNatividad Clifton DIAGNOSIS: Comment [facility] Comment on above: Result Comment: NEGA TIVE FOR INTRAEPITHELIAL LESION OR MALIGNANCY. CELLULAR CHANGES ASSOCIATED WITH ATROPHY ARE PRESENT. Performed By: #### 4 [id number] ####[facility] [address] [place], [place] [address]DrNatividad Clifton Methodology: Comment Normal [facility] Comment on above: Result Comment: This liquid based ThinPrep(R) pap test was screened with the use of an image guided system. Performed By: #### 4 [id number] ####[place] [address]DrNatividad Clifton Note: Comment [facility] Comment on above: Result Comment: The Pap smear is a screening test designed to aid in the detection of premalignant and malignant conditions of the uterine cervix. It is not a diagnostic procedure and should not be used as the sole means of detecting cervical cancer. Both false-positive and false-negative reports do occur. . Performed By: #### 4 [id number] ####[facility] [address] [place], [place] [address]DrNatividad Clifton Performed by: Comment Normal [facility] Comment on above: Result Comment: Isabel Gong, Crisis Clinician (ASCP) Performed By: #### 4 [id number] ####[facility] [address] [place], [place] [address]Dr. Silvino Clifton Specimen adequacy: Comment Normal [facility] Comment on above: Result Comment: Sati sfactory for evaluation. Performed By: #### 4 [id number] ####[facility] [address] [place], [place] [address]Hw. Silvino Clifton BASIC METABOLIC PANELon 07-0 BUN/CREATININE RATIO NOT APPLICABLE Normal 6-22 [facility] Comment on above: Order Comment: FASTI NG:YES FASTING: YES Performed By: #### 1 0165, 496 #### [facility] [address], [address] [place] [address] [employer] Supervisor: Scott Nichols MD Calcium [Mass/Vol] 9.6 mg/dL Normal 8.6-10.4 [facility] Comment on above: Order Comment: FASTI NG:YES FASTING: YES Performed By: #### 1 0165, 496 #### [facility] [address], [address] [place] [address] [employer] Supervisor: Scott Nichols MD Chloride [Moles/Vol] 104 mmol/L Normal 98-110 [facility] Comment on above: Order Comment: FASTI NG:YES FASTING: YES Performed By: #### 1 0165, 496 #### [facility] [address], [address] [place] [address] [employer] Supervisor: Scott Nichols MD CO2 [Moles/Vol] 31 mmol/L Normal 20-32 [facility] Comment on above: Order Comment: FASTI NG:YES FASTING: YES Performed By: #### 1 0165, 496 #### [facility] [address], [address] [place] [address] [employer] Supervisor: Scott Nichols MD Creatinine [Mass/Vol] 0.64 mg/dL Normal 0.60-0.93 [facility] Comment on above: Order Comment: FASTI NG:YES FASTING: YES Result Comment: For patients >49 years of age, the reference limit for Creatinine is approximately 13% higher for people identified as -Croatian. Performed By: #### 1 0165, 496 #### [facility] [place] [address] [employer] Supervisor: Scott Nichols MD eGFR NON-AFR. GEORGIAN 90 mL/min/1.73m2 Normal > OR = 60 [facility] Comment on above: Order Comment: FASTI NG:YES FASTING: YES Performed By: #### 1 0165, 496 #### [facility] [place] [address] [employer] Supervisor: Scott Nichols MD GFR/1.73 sq M.predicted among blacks MDRD (S/P/Bld) [Vol rate/Area] 105 mL/min/{1.73_m2} Normal > OR = 60 [facility] Comment on above: Order Comment: FASTI NG:YES FASTING: YES Performed By: #### 1 0165, 496 #### [facility] [place] [address] [employer] Supervisor: Scott Nichols MD Glucose [Mass/Vol] 136 mg/dL High 65-99 [facility] Comment on above: Order Comment: FASTI NG:YES FASTING: YES Result Comment: Fasting reference interval For someone without known diabetes, a glucose value >125 mg/dL indicates that they may have diabetes and this should be confirmed with a follow-up test. Performed By: #### 1 0165, 496 #### [facility] [place] [address] [employer] Supervisor: Scott Nichols MD Potassium [Moles/Vol] 4.3 mmol/L Normal 3.5-5.3 [facility] Comment on above: Order Comment: FASTI NG:YES FASTING: YES Performed By: #### 1 0165, 496 #### [facility] [place] [address] [employer] Supervisor: Scott Nichols MD Sodium [Moles/Vol] 141 mmol/L Normal 135-146 [facility] Comment on above: Order Comment: FASTI NG:YES FASTING: YES Performed By: #### 1 0165, 496 #### [facility] [address] [place] [address] [employer] Supervisor: Scott Nichols MD Urea nitrogen [Mass/Vol] 9 mg/dL Normal 7-25 [facility] Comment on above: Order Comment: FASTI NG:YES FASTING: YES Performed By: #### 1 0165, 496 #### [facility] [address], [address] [place] [id number] [employer] Supervisor: Scott Nichols MD HEMOGLOBIN A1con 11-27-2021 HEMOGLOBIN [...] #### 1 0165, 496 #### [facility] [address], [address] [place], [place] [id number] [employer] Supervisor: Scott Nichols MD URINALYSISOrdered By: Aggie Giron on 11-26-2021 Bilirubin Ql (U) Negative (11/26/21 [...] AM) Normal Negative [facility] UA Auto SS Clemons.plasma/Lithi um.RBC (Bld) [Mass ratio] 0-3 /HPF Normal 0-3/HPF [facility] UA Auto SS Nitrite Ql (U) Negative (11/26/21 10:54 AM) Normal Negative [facility] UA Auto SS pH (U) 6.5 *NA* (11/26/21 10:54 AM) Invalid Interpretation Code 5.0 - 9.0 [facility] UA Auto SS Protein (U) [Mass/Vol] Negative (11/26/21 10:54 AM) Normal Negative [facility] UA Auto SS Specific gravity (U) [Rel density] <=1.005 *NA* (11/26/21 10:54 AM) Invalid Interpretation Code 1.005 - 1.030 [facility] Auto SS UA Spec Desc Clean Catch (11/26/21 10:54 AM) Normal [facility] UA Auto SS Urobilinogen Qn (U) 0.0553582 {Tyrell'U}/dL Normal 0.0 - 1.0 EU/dL [facility] UA Auto SS WBC Auto Ql (U) Negative (11/26/21 10:54 AM) Normal Negative [facility] UA Auto SS WBC LM.HPF (Urine sed) [#/Area] 0-5 /HPF Normal 0-5/HPF [facility] [place] Auto SS CT ABD/PELVIS WO CONon [...] LOBITO YEE Date: 2021-11-24 01:04 Normal [facility] CBC AUTO DIFFon 11-12-2021 BASO # 0.1 103/ul Normal 0.0-0.1 [facility] Comment on above: Performed By: #### C BC ####[facility] [address] [place] [address]Dr. Silvino Clifton Basophils/100 WBC (Bld) 0.6 % Normal 0.2-2.0 [facility] Comment on above: Performed By: #### C BC ####[facility] Eegv[address] [place], [place] [address]Dr. Silvino Etienne EO # 0.1 103/ul Normal 0.0-0.7 [facility] Comment on above: Performed By: #### C BC ####[facility] Gt[address] [place], [place] [address]Dr. Silvino Etienne Eosinophils/100 WBC (Bld) 1.3 % Normal 0.9-7.0 [facility] Comment on above: Performed By: #### C BC ####[facility] Oqtaodd[address] [place], [place] [address]Dr. Silvino Etienne Erythrocyte distribution width (RBC) [Ratio] 11.9 % Normal 11.0-15.0 [facility] Comment on above: Performed By: #### C BC ####[facility] Fttcir[address] [place], [place] [address]Dr. Silvino Clifton Hematocrit (Bld) [Volume fraction] 37.6 % Normal 36.0-48.0 [facility] Comment on above: Performed By: #### C BC ####[facility] [address] [place], [place] [address]Dr. Silvino Clifton Hemoglobin (Bld) [Mass/Vol] 13.0 g/dL Normal 12.0-16.0 [facility] Comment on above: Performed By: #### C BC ####[facility] Bkiks[address] [place], [place] [address]Dr. Suzyoriana Etienne IG # 0.04 10e3/ul Critically high 0.00-0.03 [facility] Comment on above: Performed By: #### C BC ####[facility] J[address]grky[address] [place], [place] [address]Dr. Silvino Clifton IG % 0.5 % Normal 0.0-0.5 [facility] Comment on above: Performed By: #### C BC ####[facility] [address] [place] [address]Dr. Silvino Etienne LYMPH # 1.5 103/ul Normal 1.2-3.8 [facility] Comment on above: Performed By: #### C BC ####[facility] [address] [place] [address]Dr. Suzyoriana Clifton Lymphocytes/100 WBC (Bld) 18.9 % Critically low 20.5-60.0 [facility] Comment on above: Performed By: #### C BC ####[facility] Ymtwe[address] [place], [place] [address]Dr. Silvino Clifton MANUAL DIFF REQ NO Normal [facility] Comment on above: Performed By: #### C BC ####[facility] Kysmiwoxq[address] [place], [place] [address]Dr. Suzyoriana Clifton MCH (RBC) [Entitic mass] 29.7 pg Normal 26.7-34.0 [facility] Comment on above: Performed By: #### C BC ####[facility] [address] [place], [place] [address]Dr. Silvnio Etienne MCHC (RBC) [Mass/Vol] 34.6 g/dL Normal 29.9-35.2 [facility] Comment on above: Performed By: #### C BC ####[facility] Hnr[address] [place], [place] [address]Dr. Silvino Clifton MCV (RBC) [Entitic vol] 85.8 fL Normal 81.0-99.0 [facility] Comment on above: Performed By: #### C BC ####[facility] Almtfec[address] [place], [place] [address]Dr. Silvino Clifton MONO # 0.5 103/ul Normal 0.3-0.8 [facility] Comment on above: Performed By: #### C BC ####[facility] Vqz[address]per[address] [place], [place] [address]Dr. Silvino Clifton Monocytes/100 WBC (Bld) 6.1 % Normal 1.7-12.0 [facility] Comment on above: Performed By: #### C BC ####[facility] [address] [place] [address]Dr. Silvino Clifton NEUT # 5.8 103/ul Normal 1.4-6.5 [facility] Comment on above: Performed By: #### C BC ####[facility] [address] [place] [address]Dr. Silvino Clifton Neutrophils/100 WBC (Bld) 72.6 % Normal 43.0-75.0 [facility] Comment on above: Performed By: #### C BC ####[facility] [address] [place] [address]Dr. Silvino Clifton Platelet mean volume (Bld) [Entitic vol] 10.7 fL Normal 9.5-13.5 [facility] Comment on above: Performed By: #### C BC ####[facility] [address] [place] [address]Dr. Silvino Clifton PLT 182 103/ul Normal 150-450 [facility] Comment on above: Performed By: #### C BC ####[facility] [address] [place] [address]Dr. Silvino Clifton RBC 4.38 106/ul Normal 4.20-5.40 [facility] Comment on above: Performed By: #### C BC ####[facility] [address] [place] [address]Dr. Silvino Clifton WBC 8.0 103/ul Normal 4.0-11.0 [facility] Comment on above: Performed By: #### C BC ####[facility] [address] [place], [place] [address]Dr. Silvino Clifton CT HEAD WO CONon 11-12-2021 [...] RAYNE JOHNSON Date: 2021-11-12 05:04 Normal [facility] ER URINE PROFILEon 2 Bilirubin Ql (U) Negative Normal NEGATIVE [facility] Comment on above: Performed By: #### U MICRO, ERUR #### [facility] [address] [address] [address] Silvino Clifton Clarity (U) CLEAR Normal CLEAR [facility] Comment on above: Performed By: #### U MICRO, ERUR #### [facility] [address] [place] [address] Dr. Silvino Clifton Color (U) LT. YELLOW Normal YELLOW [facility] Comment on above: Performed By: #### U MICRO, ERUR #### [facility] [address] [place] [address] Dr. Silvino Clifton ERUAHD A micrscopic examina tion will be performed if indicated. Normal [facility] Comment on above: Performed By: #### U MICRO, ERUR #### [facility] [address] [place] [address] Dr. Silvino Clifton Glucose Ql (U) Negative Normal NEGATIVE [facility] Comment on above: Performed By: #### U MICRO, ERUR #### [facility] [address] [place] [address] [address] Silvino Clifton Hemoglobin Ql (U) SMALL Abnormal NEGATIVE [facility] Comment on above: Performed By: #### U MICRO, ERUR #### [facility] [address] [place] [address] Dr. Silvino Clifton Ketones Ql (U) Negative Normal NEGATIVE [facility] Comment on above: Performed By: #### U MICRO, ERUR #### [facility] [address] [place] [address] Dr. Silvino Clifton LEUKOCYTES Negative Normal NEGATIVE [facility] Comment on above: Performed By: #### U MICRO, ERUR #### [facility] [address] [address] [address] Silvino Clifton Nitrite Ql (U) Negative Normal NEGATIVE [facility] Comment on above: Performed By: #### U MICRO, ERUR #### [facility] [address] [address] [address] Silvino Clifton pH (U) 7.0 [pH] Normal 5-9 [facility] Comment on above: Performed By: #### U MICRO, ERUR #### [facility] [address] [address] [address] Silvino Clifton SPEC GRAVITY <=1.005 Abnormal 1.005-<=1.0 25 [facility] Comment on above: Performed By: #### U MICRO, ERUR #### [facility] [address] [address] [address] Silvino Clifton UA PROTEIN Negative Normal NEGATIVE/ TRACE [facility] Comment on above: Performed By: #### U MICRO, ERUR #### [facility] [address] [address] [address] Silvino Clifton UR MICRO IND INDICATED Normal [facility] Comment on above: Performed By: #### U MICRO, ERUR #### [facility] [address] [address] [address] Silvino Clifton Urobilinogen Qn (U) 0.2 {Tyrell'U}/dL Normal 0.2 - 1. 0 [facility] Comment on above: Performed By: #### U MICRO, ERUR #### [facility] [address] [address] [address] Silvino Clifton PROF 14(COMP METB)on 022 Albumin [Mass/Vol] 4.2 g/dL Normal 3.4-5.0 [facility] Comment on above: Performed By: #### C MP, HSTROPN ####[facility] [address] [place] [address]Dr. Silvino Clifton Albumin/Globulin [Mass ratio] 1.2 {ratio} Normal [facility] Comment on above: Performed By: #### C MAGGIE, HSTROPN ####[facility] [address] [place] [address]Dr. Silvino Clifton ALP [Catalytic activity/Vol] 65 U/L Normal 46-116 [facility] Comment on above: Performed By: #### C MAGGIE, HSTROPN ####[facility] [address] [place] [address]Dr. Silvino Clifton ALT [Catalytic activity/Vol] 21 U/L Normal 14-59 [facility] Comment on above: Performed By: #### C MAGGIE HSTROPN ####[facility] [address] [place], [place] [address]Dr. Silvino Clifton Anion gap [Moles/Vol] 12.5 mmol/L Normal [facility] Comment on above: Performed By: #### C MAGGIE HSTROPN ####[facility] [address] [place], [place] [address]Dr. Silvino Clifton AST [Catalytic activity/Vol] 17 U/L Normal 15-37 [facility] Comment on above: Performed By: #### C MAGGIE HSTROPN ####[facility] [address] [place], [place] [address]Dr. Silvino Clifton Bilirubin [Mass/Vol] 0.5 mg/dL Normal 0.2-1.0 [facility] Comment on above: Performed By: #### C MAGGIE, HSTROPN ####[facility] [address] [place] [address]Dr. Silvino Clifton Calcium [Mass/Vol] 9.0 mg/dL Normal 8.5-10.1 [facility] Comment on above: Performed By: #### C MAGGIE, HSTROPN ####[facility] [address] [place] [address]Dr. Silvino Clifton Chloride [Moles/Vol] 100 mmol/L Normal 98-107 [facility] Comment on above: Performed By: #### C MAGGIE, HSTROPN ####[facility] [address] [place] [id number]. Silvino Clifton CO2 [Moles/Vol] 26.8 mmol/L Normal 21.0-32.0 [facility] Comment on above: Performed By: #### C MP, HSTROPN ####[facility] [address] [place] [address]Dr. Silvino Clifton Creatinine [Mass/Vol] 0.71 mg/dL Normal 0.55-1.02 [facility] Comment on above: Performed By: #### C MP, HSTROPN ####[facility] [address] [place] [address]Dr. Silvino Clifton EGFR-AF GEORGIAN >60 Normal >=60 [facility] Comment on above: Performed By: #### C MP, HSTROPN ####[facility] [address] [place], [place] [address]Dr. Silvino Clifton EGFR-NON AF GEORGIAN >60 Normal >=60 [facility] Comment on above: Performed By: #### C MP, HSTROPN ####[facility] [address] [place] [address]Dr. Silvino Clifton Globulin (S) [Mass/Vol] 3.4 g/dL Normal [facility] Comment on above: Performed By: #### C MP, HSTROPN ####[facility] [address] [place] [address]Dr. Silvino Clifton Glucose [Mass/Vol] 185 mg/dL Critically high 74-106 [facility] Comment on above: Performed By: #### C MP, HSTROPN ####[facility] [address] [place] [address]Dr. Silvino Clifton Potassium [Moles/Vol] 3.3 mmol/L Critically low 3.5-5.1 [facility] Comment on above: Performed By: #### C MP, HSTROPN ####[facility] [address] [place] [address]Dr. Suzyoriana Clifton Protein [Mass/Vol] 7.6 g/dL Normal 6.4-8.2 [facility] Comment on above: Performed By: #### C MAGGIE, HSTROPN ####[facility] [address] [place] [address]Dr. Silvino Clifton Sodium [Moles/Vol] 136 mmol/L Normal 136-145 [facility] Comment on above: Performed By: #### C MP, HSTROPN ####[facility] [address] [place] [address]Dr. Silvino Clifton Urea nitrogen [Mass/Vol] 10.0 mg/dL Normal 7.0-18.0 [facility] Comment on above: Performed By: #### C MAGGIE, HSTROPN ####[facility] [address] [place] [address]Dr. Silvino Clifton Urea nitrogen/Creatinine [Mass ratio] 14.1 mg/mg Normal [facility] Comment on above: Performed By: #### C MAGGIE, HSTROPN ####[facility] [address] [place] [address]Dr. Silvino Clifton TROPONIN, HIGH SENSITIVITYon 11-12-2021 HSTROP 25.0 pg/mL Normal 4.0-51.3 [facility] Comment on above: Result Comment: CUT- OFF POINTS HAVE BEEN ESTABLISHED BASED ON THE FOURTH UNIVERSAL DEFINITIONS OF MYOCARDIAL INFARCTION. THE UPPER REFERENCE LIMIT (URL) OF TROPONIN, DEFINED THE 99TH PERCENTILE OF cTnI DISTRIBUTION IN A REFERENCE POPULATION, HAS BEEN CONFIRMED THE DECISION THRESHOLD FOR [place] DIAGNOSIS. Performed By: #### C MAGGIE, HSTROPN #### [facility] [address] [place] [address] Dr. Silvino Clifton URINE MICROSCOPIC ONLYon BACTERIA NONE SEEN Normal NONE SEEN [facility] Comment on above: Performed By: #### U MICRO, ERUR #### [facility] [address] [place] [address] Dr. Silvino Clifton Bacteria identified Cx Nom (U) NOT INDICATED Normal [facility] Comment on above: Performed By: #### U MICRO, ERUR #### [facility] [address] [place] [address] Dr. Silvino Clifton CAST NONE SEEN Normal NONE SEEN [facility] Comment on above: Performed By: #### U MICRO, ERUR #### [facility] [address] [address] [address] Silvino Clifton Crystals LM Nom (Urine sed) NONE SEEN Normal NONE SEEN [facility] Comment on above: Performed By: #### U MICRO, ERUR #### [facility] [address] [place] [address] Dr. Silvino Clifton Epithelial cells LM Ql (Urine sed) RARE Normal NONE SEEN /RARE [facility] Comment on above: Performed By: #### U MICRO, ERUR #### [facility] [address] [address] [address] Silvino Clifton MUCOUS NONE SEEN Normal NONE SEEN [facility] Comment on above: Performed By: #### U MICRO, ERUR #### [facility] [address] [place] [address] Dr. Silvino Clifton RBC 2-5 Abnormal 0-2 [facility] Comment on above: Performed By: #### U MICRO, ERUR #### [facility] [address] [address] [address] Silvino Clifton WBC NONE SEEN Normal NONE SEEN [facility] Comment on above: Performed By: #### U MICRO, ERUR #### [facility] [address] [place] [address] Dr. Silvino Clifton CBC (INCLUDES DIFF/PLT)on Basophils (Bld) [#/Vol] 0.041 10*3/uL Normal 0-200 [facility] Comment on above: Performed By: #### 6 399, 622, 927 #### [facility] [address], [address] [place] [address] [employer] Supervisor: Scott Nichols MD Basophils/100 WBC (Bld) 0.7 % Normal [facility] Comment on above: Performed By: #### 6 399, 622, 927 #### [facility] [address], [address] [place] [address] [employer] Supervisor: Scott Nichols MD Eosinophils (Bld) [#/Vol] 0.077 10*3/uL Normal 15-500 [facility] Comment on above: Performed By: #### 6 399, 622, 927 #### [facility] of [place] [address] [employer] Supervisor: Scott Nichols MD Eosinophils/100 WBC (Bld) 1.3 % Normal [facility] Comment on above: Performed By: #### 6 399, 622, 927 #### [facility] [place] [address] [employer] Supervisor: Scott Nichols MD Erythrocyte distribution width (RBC) [Ratio] 12.3 % Normal 11.0-15.0 [facility] Comment on above: Performed By: #### 6 399, 622, 927 #### [facility] [place] [address] [employer] Supervisor: Scott Nichols MD Hematocrit (Bld) [Volume fraction] 40.2 % Normal 35.0-45.0 [facility] Comment on above: Performed By: #### 6 399, 622, 927 #### [facility] [place] [address] [employer] Supervisor: Scott Nichols MD Hemoglobin (Bld) [Mass/Vol] 13.8 g/dL Normal 11.7-15.5 [facility] Comment on above: Performed By: #### 6 399, 622, 927 #### [facility] [place] [address] [employer] Supervisor: Scott Nichols MD Lymphocytes (Bld) [#/Vol] 1.682 10*3/uL Normal 850-3900 [facility] Comment on above: Performed By: #### 6 399, 622, 927 #### [facility] of [place] [address] [employer] Supervisor: Scott Nichols MD Lymphocytes/100 WBC (Bld) 28.5 % Normal [facility] Comment on above: Performed By: #### 6 399, 622, 927 #### [facility] of [address], [address] [place] [address] [employer] Supervisor: Scott Nichols MD MCH (RBC) [Entitic mass] 29.9 pg Normal 27.0-33.0 [facility] Comment on above: Performed By: #### 6 399, 622, 927 #### [facility] of [place] [address] [employer] Supervisor: Scott Nichols MD MCHC (RBC) [Mass/Vol] 34.3 g/dL Normal 32.0-36.0 [facility] Comment on above: Performed By: #### 6 399, 622, 927 #### [facility] of [place] [address] [employer] Supervisor: Scott Nichols MD MCV (RBC) [Entitic vol] 87.0 fL Normal 80.0-100.0 [facility] Comment on above: Performed By: #### 6 399, 622, 927 #### [facility] of [place] [address] [employer] Supervisor: Scott Nichols MD Monocytes (Bld) [#/Vol] 0.407 10*3/uL Normal 200-950 [facility] Comment on above: Performed By: #### 6 399, 622, 927 #### [facility] of [place] [address] [employer] Supervisor: Scott Nichols MD Monocytes/100 WBC (Bld) 6.9 % Normal [facility] Comment on above: Performed By: #### 6 399, 622, 927 #### [facility] of [place] [address] [employer] Supervisor: Scott Nichols MD Neutrophils (Bld) [#/Vol] 3.693 10*3/uL Normal 5383-9477 [facility] Comment on above: Performed By: #### 6 399, 622, 927 #### [facility] of [place] [address] [employer] Supervisor: Scott Nichols MD Neutrophils/100 WBC (Bld) 62.6 % Normal [facility] Comment on above: Performed By: #### 6 399, 622, 927 #### [facility] [place] [address] [employer] Supervisor: Scott Nichols MD Platelet mean volume (Bld) [Entitic vol] 11.9 fL Normal 7.5-12.5 [facility] Comment on above: Performed By: #### 6 399, 622, 927 #### [facility] [place] [address] [employer] Supervisor: Scott Nichols MD Platelets (Bld) [#/Vol] 195 10*3/uL Normal 140-400 [facility] Comment on above: Performed By: #### 6 399, 622, 927 #### [facility] [place] [address] [employer] Supervisor: Scott Nichols MD RBC (Bld) [#/Vol] 4.62 10*6/uL Normal 3.80-5.10 [facility] Comment on above: Performed By: #### 6 399, 622, 927 #### [facility] [place] [address] [employer] Supervisor: Scott Nichols MD WBC (Bld) [#/Vol] 5.9 10*3/uL Normal 3.8-10.8 [facility] Comment on above: Performed By: #### 6 399, 622, 927 #### [facility] of [place] [address] [employer] Supervisor: Scott Nichols MD MAGNESIUMon 09-10-2021 Magnesium [Mass/Vol] 1.7 mg/dL Normal 1.5-2.5 [facility] Comment on above: Order Comment: FASTI NG:UNKNOWN FASTING: UNKNOWN Performed By: #### 6 399, 622, 927 #### [facility] of [address], [address] [place] [address] [employer] Supervisor: Scott Nichols MD VITAMIN B12on 09-10-2021 Cobalamin [...] 6 399, 622, 927 #### [facility] [place] [address] [employer] Supervisor: Scott Nichols MD ALBUMIN, RANDOM URINE W/CREA TININEon 07-29-2021 ALBUMIN, URINE 2.6 mg/dL Normal See Note: [facility] Comment on above: Result Comment: Refe rence Range: Reference Range Not established Performed By: #### 1 0231, 7600, 6517 #### [facility] [address], [address] [place] [address] [employer] Supervisor: Scott Nichols MD ALBUMIN/CREATININE RATIO, RANDOM URINE [...] 1 0231, 7600, 6517 #### [facility] [address], [address] [place] [address] [employer] Supervisor: Scott Nichols MD Creatinine (U) [Mass/Vol] 53 mg/dL Normal 20-275 [facility] Comment on above: Performed By: #### 1 0231, 7600, 6517 #### [facility] [address], [address] [place] [address] [employer] Supervisor: Scott Nichols MD COMPREHENSIVE METABOLIC PANE [facility] 07-29-2021 Albumin [Mass/Vol] 4.6 g/dL Normal 3.6-5.1 [facility] Comment on above: Performed By: #### 1 0231, 0, 6517 #### [facility] [address], [address] [place] [address] [employer] Supervisor: Scott Nichols MD Albumin/Globulin [Mass ratio] 1.6 {ratio} Normal 1.0-2.5 [facility] Comment on above: Performed By: #### 1 0231, 7599, 6517 #### [facility] [place] [address] [employer] Supervisor: Scott Nichols MD ALP [Catalytic activity/Vol] 55 U/L Normal 37-153 [facility] Comment on above: Performed By: #### 1 230, 7599, 17 #### [facility] [place] [address] [employer] Supervisor: Scott Nichols MD ALT [Catalytic activity/Vol] 11 U/L Normal 6-29 [facility] Comment on above: Result Comment: NO C OLLECTION DATE RECEIVED. WE HAVE USED THE DATE THE SPECIMEN WAS RECEIVED BY THIS LABORATORY THE COLLECTION DATE. IF THIS IS INCORRECT, PLEASE CONTACT CLIENT SERVICES. PHONE NUMBER: [phone] Performed By: #### 1 230, 7599, 6517 #### [facility] [place] [address] [employer] Supervisor: Scott Nichols MD AST [Catalytic activity/Vol] 11 U/L Normal 10-35 [facility] Comment on above: Performed By: #### 1 023, 7599, 6517 #### [facility] [place] [address] [employer] Supervisor: Scott Nichols MD Bilirubin [Mass/Vol] 0.6 mg/dL Normal 0.2-1.2 [facility] Comment on above: Performed By: #### 1 023, 7599, 6517 #### [facility] of [address], [address] [place] [address] [employer] Supervisor: Scott Nichols MD BUN/CREATININE RATIO NOT APPLICABLE Normal 6-22 [facility] Comment on above: Performed By: #### 1 023, 7599, 6517 #### [facility] of [address], [address] [place] [address] [employer] Supervisor: Scott Nichols MD Calcium [Mass/Vol] 9.5 mg/dL Normal 8.6-10.4 [facility] Comment on above: Performed By: #### 1 230, 7599, 6517 #### [facility] of [address], [address] [place] [address] [employer] Supervisor: Scott Nichols MD Chloride [Moles/Vol] 105 mmol/L Normal 98-110 [facility] Comment on above: Performed By: #### 1 230, 7599, 6516 #### [facility] of [address], [address] [place] [address] [employer] Supervisor: Scott Nichols MD CO2 [Moles/Vol] 30 mmol/L Normal 20-32 [facility] Comment on above: Performed By: #### 1 230, 7599, 6517 #### [facility] [place] [address] [employer] Supervisor: Scott Nichols MD Creatinine [Mass/Vol] 0.62 mg/dL Normal 0.60-0.93 [facility] Comment on above: Result Comment: For patients >49 years of age, the reference limit for Creatinine is approximately 13% higher for people identified as -Croatian. Performed By: #### 1 230, 7599, 6517 #### [facility] of [address], [address] [place] [address] [employer] Supervisor: Scott Nichols MD eGFR NON-AFR. GEORGIAN 91 mL/min/1.73m2 Normal > OR = 60 [facility] Comment on above: Performed By: #### 1 023, 7599, 6517 #### [facility] [place] [address] [employer] Supervisor: Scott Nichols MD GFR/1.73 sq M.predicted among blacks MDRD (S/P/Bld) [Vol rate/Area] 106 mL/min/{1.73_m2} Normal > OR = 60 [facility] Comment on above: Performed By: #### 1 230, 7599, 6516 #### [facility] [place] [address] [employer] Supervisor: Scott Nichols MD Globulin (S) [Mass/Vol] 2.8 g/dL Normal 1.9-3.7 [facility] Comment on above: Performed By: #### 1 230, 7599, 17 #### [facility] [place] [address] [employer] Supervisor: Scott Nichols MD Glucose [Mass/Vol] 124 mg/dL High 65-99 [facility] Comment on above: Result Comment: Fasting reference interval For someone without known diabetes, a glucose value between 100 and 125 mg/dL is consistent with prediabetes and should be confirmed with a follow-up test. Performed By: #### 1 230, 7599, 6517 #### [facility] [place] [address] [employer] Supervisor: Scott Nichols MD Potassium [Moles/Vol] 3.7 mmol/L Normal 3.5-5.3 [facility] Comment on above: Performed By: #### 1 230, 7599, 6517 #### [facility] [place] [address] [employer] Supervisor: Scott Nichols MD Protein [Mass/Vol] 7.4 g/dL Normal 6.1-8.1 [facility] Comment on above: Performed By: #### 1 230, 7599, 65 #### [facility] [place] [address] [employer] Supervisor: Scott Nichols MD Sodium [Moles/Vol] 142 mmol/L Normal 135-146 [facility] Comment on above: Performed By: #### 1 0231, 0, 6517 #### [facility] [address], [address] [place] [address] [employer] Supervisor: Scott Nichols MD Urea nitrogen [Mass/Vol] 8 mg/dL Normal 7-25 [facility] Comment on above: Performed By: #### 1 0231, 0, 6517 #### [facility] [address], [address] [place] [address] [employer] Supervisor: Scott Nichols MD LIPID PANEL, [facility] 0 Cholesterol [Mass/Vol] 156 mg/dL Normal <200 [facility] Comment on above: Performed By: #### 1 0231, 0, 6517 #### [facility] [address], [address] [place] [address] [employer] Supervisor: Scott Nichols MD Cholesterol in HDL [Mass/Vol] 67 mg/dL Normal > OR = 50 [facility] Comment on above: Performed By: #### 1 023, 7599, 6517 #### [facility] [place] [address] [employer] Supervisor: Scott Nichols MD Cholesterol in LDL [Mass/Vol] 72 mg/dL Normal [facility] Comment on above: Result Comment: Refe rence range: <100 Desirable range <100 mg/dL for primary prevention; <70 mg/dL for patients with CHD or diabetic patients with > or = 2 CHD risk factors. LDL-C is now calculated using the Raj calculation, which is a validated novel method providing better accuracy than the Friedewald equation in the estimation of LDL-C. Placido SS et al. MACKENZIE. 2013;310(19): 6520-5317 (http://education.[employer].GottaPark/faq/GYI695) Performed By: #### 1 0231, 7600, 6517 #### [facility] [place] [address] [employer] Supervisor: Scott Nichols MD Cholesterol.total/Ch olesterol in HDL [Mass ratio] 2.3 {ratio} Normal <5.0 [facility] Comment on above: Performed By: #### 1 230, 7599, 6517 #### [facility] [place] [address] [employer] Supervisor: Scott Nichols MD NON HDL CHOLESTEROL 89 mg/dL (calc) Normal <130 [facility] Comment on above: Result Comment: For patients with diabetes plus 1 major ASCVD risk factor, treating to a non-HDL-C goal of <100 mg/dL (LDL-C of <70 mg/dL) is considered a therapeutic option. Performed By: #### 1 230, 7599, 6517 #### [facility] [place] [address] [employer] Supervisor: Scott Nichols MD Triglyceride [Mass/Vol] 85 mg/dL Normal <150 [facility] Comment on above: Performed By: #### 1 230, 7599, 6516 #### [facility] [place] [address] [employer] Supervisor: Scott Nichols MD REFLEXIVE URINE CULTUREon REFLEXIVE URINE CULTURE Normal [facility] Comment on above: Result Comment: NO C ULTURE INDICATED Performed By: #### 3 020 #### [facility] [place] [address] [employer] Supervisor: Scott Nichols MD URINALYSIS, COMPLETE W/REFLE X TO CULTUREon 02-06-2021 Appearance (U) CLEAR Normal CLEAR [facility] Comment on above: Performed By: #### 3 020 #### [facility] [place] [address] [employer] Supervisor: Scott Nichols MD BACTERIA NONE SEEN Normal NONE SEEN [facility] Comment on above: Performed By: #### 3 020 #### [facility] [place] [address] [employer] Supervisor: Scott Nichols MD Bilirubin Ql (U) Negative Normal NEGATIVE [facility] Comment on above: Performed By: #### 3 020 #### [facility] [place] [address] [employer] Supervisor: Scott Nichols MD Color (U) YELLOW Normal YELLOW [facility] Comment on above: Performed By: #### 3 020 #### [facility] [place] [address] [employer] Supervisor: Scott Nichols MD Glucose Ql (U) Negative Normal NEGATIVE [facility] Comment on above: Performed By: #### 3 020 #### [facility] [place] [address] [employer] Supervisor: Scott Nichols MD HYALINE CAST NONE SEEN Normal NONE SEEN [facility] Comment on above: Performed By: #### 3 020 #### [facility] [place] [address] [employer] Supervisor: Scott Nichols MD Ketones Ql (U) Negative Normal NEGATIVE [facility] Comment on above: Performed By: #### 3 020 #### [facility] [place] [address] [employer] Supervisor: Scott Nichols MD Leukocyte esterase Test strip Ql (U) Negative Normal NEGATIVE [facility] Comment on above: Performed By: #### 3 020 #### [facility] [place] [address] [employer] Supervisor: Scott Nichols MD Nitrite Ql (U) Negative Normal NEGATIVE [facility] Comment on above: Performed By: #### 3 020 #### [facility] [place] [address] [employer] Supervisor: Scott Nichols MD OCCULT BLOOD TRACE Abnormal NEGATIVE [facility] Comment on above: Performed By: #### 3 020 #### [facility] [place] [address] [employer] Supervisor: Scott Nichols MD pH (U) 6.5 [pH] Normal 5.0-8.0 [facility] Comment on above: Performed By: #### 3 020 #### [facility] of [address], [address] [place] [address] [employer] Supervisor: Scott Nichols MD Protein Ql (U) Negative Normal NEGATIVE [facility] Comment on above: Performed By: #### 3 020 #### [facility] of [address], [address] [place] [address] [employer] Supervisor: Scott Nichols MD RBC NONE SEEN Normal < OR = 2 [facility] Comment on above: Performed By: #### 3 020 #### [facility] of [address], [address] [place] [address] [employer] Supervisor: Scott Nichols MD Specific gravity (U) [Rel density] 1.008 Normal 1.001-1.035 [facility] Comment on above: Performed By: #### 3 020 #### [facility] [place] [address] [employer] Supervisor: Scott Nichols MD SQUAMOUS EPITHELIAL CELLS NONE SEEN Normal < OR = 5 [facility] Comment on above: Performed By: #### 3 020 #### [facility] [place] [address] [employer] Supervisor: Scott Nichols MD WBC NONE SEEN Normal < OR = 5 [facility] Comment on above: Performed By: #### 3 020 #### [facility] [place] [address] [employer] Supervisor: Scott Nichols MD BASIC METABOLIC PANEL 12-23 BUN/CREATININE RATIO NOT APPLICABLE Normal 6-22 [facility] Comment on above: Order Comment: FASTI NG:YESFASTING: YES Performed By: #### 3 020 #### [facility] [place] [address] [employer] Supervisor: Scott Nichols MD Calcium [Mass/Vol] 9.6 mg/dL Normal 8.6-10.4 [facility] Comment on above: Order Comment: FASTI NG:YESFASTING: YES Performed By: #### 3 020 #### [facility] [place] [address], [address] [place] [address] [employer] Supervisor: Scott Nichols MD Chloride [Moles/Vol] 106 mmol/L Normal 98-110 [facility] Comment on above: Order Comment: FASTI NG:YESFASTING: YES Performed By: #### 3 020 #### [facility] [address], [address] [place] [address] [employer] Supervisor: Scott Nichols MD CO2 [Moles/Vol] 29 mmol/L Normal 20-32 [facility] Comment on above: Order Comment: FASTI NG:YESFASTING: YES Performed By: #### 3 020 #### [facility] [place] [address] [employer] Supervisor: Scott Nichols MD Creatinine [Mass/Vol] 0.69 mg/dL Normal 0.50-0.99 [facility] Comment on above: Order Comment: FASTI NG:YESFASTING: YES Result Comment: For patients >49 years of age, the reference limit for Creatinine is approximately 13% higher for people identified as -Croatian. Performed By: #### 3 020 #### [facility] [place] [address] [employer] Supervisor: Scott Nichols MD eGFR NON-AFR. GEORGIAN 89 mL/min/1.73m2 Normal > OR = 60 [facility] Comment on above: Order Comment: FASTI NG:YESFASTING: YES Performed By: #### 3 020 #### [facility] [place] [address] [employer] Supervisor: Scott Nichols MD GFR/1.73 sq M.predicted among blacks MDRD (S/P/Bld) [Vol rate/Area] 103 mL/min/{1.73_m2} Normal > OR = 60 [facility] Comment on above: Order Comment: FASTI NG:YESFASTING: YES Performed By: #### 3 020 #### [facility] [place] [address] [employer] Supervisor: Scott Nichols MD Glucose [Mass/Vol] 139 mg/dL High 65-99 [facility] Comment on above: Order Comment: FASTI NG:YESFASTING: YES Result Comment: Fasting reference interval For someone without known diabetes, a glucose value >125 mg/dL indicates that they may have diabetes and this should be confirmed with a follow-up test. Performed By: #### 3 020 #### [facility] [address], [address] [place] [address] [employer] Supervisor: Scott Nichols MD Potassium [Moles/Vol] 3.9 mmol/L Normal 3.5-5.3 [facility] Comment on above: Order Comment: FASTI NG:YESFASTING: YES Performed By: #### 3 020 #### [facility] [address], [address] [place] [address] [employer] Supervisor: Scott Nichols MD Sodium [Moles/Vol] 140 mmol/L Normal 135-146 [facility] Comment on above: Order Comment: FASTI NG:YESFASTING: YES Performed By: #### 3 020 #### [facility] [address], [address] [place] [address] [employer] Supervisor: Scott Nichols MD Urea nitrogen [Mass/Vol] 11 mg/dL Normal 7-25 [facility] Comment on above: Order Comment: FASTI NG:YESFASTING: YES Performed By: #### 3 020 #### [facility] [place] [address] [employer] Supervisor: Scott Nichols MD Vital Signs Date Time Vital Sign Value Performing Clinician Facility 04-13-2023 13:45-0500 Body height 151.13 cm [facility] 04-13-2023 13:45-0500 Body mass index (BMI) [Ratio] 25.7 kg/m2 [facility] Other 04-13-2023 13:45-0500 Body weight 58.7 kg [facility] Other 04-13-2023 13:45-0500 Diastolic blood pressure 70 mm[Hg] [facility] Other 04-13-2023 13:45-0500 SaO2% (BldA) [Mass fraction] 97 % [facility] Other 04-13-2023 13:45-0500 Systolic blood pressure 108 mm[Hg] [facility] Other 02-16-2023 13:30-0400 Body height 151.13 cm [facility] Other 02-16-2023 13:30-0400 Body mass index (BMI) [Ratio] 26.01 kg/m2 [facility] Other 02-16-2023 13:30-0400 Body weight 59.42 kg [facility] Other 02-16-2023 13:30-0400 Diastolic blood pressure 80 mm[Hg] [facility] Other 02-16-2023 13:30-0400 SaO2% (BldA) [Mass fraction] 97 % [facility] Other 02-16-2023 13:30-0400 Systolic blood pressure 122 mm[Hg] [facility] Other 02-04-2023 14:00-0400 Body height 151.13 cm [facility] Other 02-04-2023 14:00-0400 Body mass index (BMI) [Ratio] 26.29 kg/m2 [facility] Other 02-04-2023 14:00-0400 Body weight 60.06 kg [facility] Other 02-04-2023 14:00-0400 Diastolic blood pressure 77 mm[Hg] [facility] Other 02-04-2023 14:00-0400 Systolic blood pressure 146 mm[Hg] [facility] Other 01-28-2023 09:45-0400 Body height 151.13 cm [facility] Other 01-28-2023 09:45-0400 Body mass index (BMI) [Ratio] 26.29 kg/m2 [facility] Other 01-28-2023 09:45-0400 Body weight 60.06 kg [facility] Other 01-28-2023 09:45-0400 Diastolic blood pressure 79 mm[Hg] [facility] Other 01-28-2023 09:45-0400 Systolic blood pressure 126 mm[Hg] [facility] Other 09-08-2022 15:00-0400 Body height 151.13 cm [facility] Other 09-08-2022 15:00-0400 Body mass index (BMI) [Ratio] 26.61 kg/m2 [facility] Other 09-08-2022 15:00-0400 Body weight 60.78 kg [facility] Other 09-08-2022 15:00-0400 Diastolic blood pressure 78 mm[Hg] [facility] Other 09-08-2022 15:00-0400 SaO2% (BldA) [Mass fraction] 97 % [facility] Other 09-08-2022 15:00-0400 Systolic blood pressure 118 mm[Hg] [facility] Other 08-27-2022 14:30-0400 Body height 151.13 cm [facility] Other 08-27-2022 14:30-0400 Body mass index (BMI) [Ratio] 26.41 kg/m2 [facility] Other 08-27-2022 14:30-0400 Body weight 60.33 kg [facility] Other 08-27-2022 14:30-0400 Diastolic blood pressure 74 mm[Hg] [facility] Other 08-27-2022 14:30-0400 SaO2% (BldA) [Mass fraction] 95 % [facility] Other 08-27-2022 14:30-0400 Systolic blood pressure 120 mm[Hg] [facility] Other 08-10-2022 14:30-0400 Body height 151.13 cm [facility] Other 08-10-2022 14:30-0400 Body mass index (BMI) [Ratio] 26.81 kg/m2 [facility] Other 08-10-2022 14:30-0400 Body weight 61.24 kg [facility] Other 08-10-2022 14:30-0400 Diastolic blood pressure 74 mm[Hg] [facility] Other 08-10-2022 14:30-0400 SaO2% (BldA) [Mass fraction] 97 % [facility] Other 08-10-2022 14:30-0400 Systolic blood pressure 126 mm[Hg] [facility] Other 11-26-2021 08:12-0400 Blood Pressure Location Norma Lue [facility] 11-26-2021 08:12-0400 Diastolic blood pressure 82 mm[Hg] Norma Lue [facility] 11-26-2021 08:12-0400 Heart rate 66 /min Norma Lue [facility] 11-26-2021 08:12-0400 Systolic blood pressure 139 mm[Hg] Norma Lue [facility] Encounters Encounter Date Encounter Type Care Provider Facility Start: 06-07-2023 End: 06-07-2023 ambulatory [facility] Start: 06-07-2023 Telephone encounter Bridget Santos in [facility] Start: 06-01-2023 End: 06-01-2023 ambulatory [facility] Other Start: 06-01-2023 Telephone encounter Elisha Neida [facility] Start: 05-31-2023 End: 06-01-2023 ambulatory Kenji De Guzman MD Facility:[facility] Start: 05-19-2023 End: 05-19-2023 ambulatory [facility] Other Start: 05-19-2023 Telephone encounter Elisha Carrasquillo [facility] Start: 04-13-2023 End: 04-13-2023 ambulatory [facility] Other Start: 04-13-2023 Office outpatient visit 15 minutes Elisha Neida [facility] Start: 03-11-2023 End: 03-11-2023 ambulatory [facility] Other Start: 03-11-2023 Telephone encounter Elisha Carrasquillo [facility] Start: 03-10-2023 End: 03-10-2023 ambulatory [facility]isha Ne[facility] Other Start: 03-10-2023 Telephone encounter Elisha Carrasquillo [facility] Start: 03-01-2023 End: 03-01-2023 ambulatory [facility] Other Start: 03-01-2023 Telephone encounter Elisha Neida [facility] Start: 02-22-2023 End: 02-22-2023 ambulatory [facility] Other Start: 02-22-2023 Telephone encounter Elisha Neida [facility] Start: 02-16-2023 End: 02-16-2023 ambulatory [facility] Ne[facility] Other Start: 02-16-2023 Office outpatient visit 15 minutes Elisha Neida [facility] Start: 02-04-2023 End: 02-04-2023 ambulatory [facility] Ne[facility] Other Start: 02-04-2023 Office outpatient visit 15 minutes Elisha Neida [facility] Start: 02-02-2023 End: 02-02-2023 ambulatory [facility] Start: 02-02-2023 Telephone encounter Elisha Neida [facility] Start: 01-28-2023 End: 01-28-2023 ambulatory [facility] Ne[facility] Other Start: 01-28-2023 Office outpatient visit 15 minutes Elisha Neida [facility] Start: 12-18-2022 End: 12-18-2022 ambulatory [facility] Other Start: 12-18-2022 Telephone encounter Elisha Neida [facility] Start: 12-09-2022 End: 12-10-2022 ambulatory PA-C SADAF WESTON Facility[facility] Start: 12-09-2022 End: 12-10-2022 ambulatory PA-C SADAF WESTON Facility:[facility] Start: 12-09-2022 End: 12-09-2022 Lab Drop off SADAF WESTON [facility] Start: 10-05-2022 End: 10-06-[address] ELISHA CARRASQUILLO Facility:[facility] Start: 09-23-2022 End: 09-23-2022 ambulatory [facility] Other Start: 09-23-2022 Telephone encounter Elisha Carrasquillo [facility] Start: 09-22-2022 End: 09-23-[address] ELISHA CARRASQUILLO Facility:[facility] Start: 09-08-2022 End: 09-08-2022 ambulatory [facility] Other Start: 09-08-2022 Office outpatient visit 15 minutes Elisha Carrasquillo [facility] Start: 08-27-2022 End: 08-27-2022 ambulatory [facility] Other Start: 08-27-2022 Office outpatient visit 15 minutes Elisha Carrasquillo [facility] Start: 08-13-2022 End: 08-13-2022 ambulatory [facility] Other Start: 08-13-2022 Telephone encounter Elisha Carrasquillo [facility] Start: 08-12-2022 End: 08-13-[address] ELISHA CARRASQUILLO Facility:[facility] Start: 08-11-2022 End: 08-12-[address] ELISHA CARRASQUILLO Facility:[facility] Start: 08-10-2022 End: 08-10-2022 ambulatory [facility] Other Start: 08-10-2022 Office outpatient ne w 45 minutes Elisha Carrasquillo [facility] Start: 07-16-2022 End: 07-16-2022 ambulatory [facility] . Facility:[facility] Start: 03-09-2022 End: 03-09-[address] BRUCE WALLER Facility:[facility] Start: 01-27-2022 End: 01-27-[address] BRUCE WALLER Facility:[facility] Start: 11-26-2021 End: 11-26-2021 Lab Drop off Norma Pulido [facility] Start: 11-26-2021 End: 11-26-2021 Patient encounter procedure Norma Pulido [facility] Start: 11-22-2021 End: 11-23-[address] BRUCE WALLER Facility: Start: 11-12-2021 End: 11-12-[address] BRUCE WALLER Facility:[facility] Procedures Date Procedure Procedure Detail Performing Clinician Start: 02-12-2023 Diabetic retinal eye exam Bridget Cummins [facility] Start: 07-23-2022 Adult depression scr eening assessment Bridget Cummins [facility] Start: 06-16-2021 Cystoscopy SADAF PRAJAPATI Colonoscopy Norma Pulido Cystoscopy Norma Pulido Hysterectomy Norma Pulido Plan of Treatment Date Care Activity Detail Author Start: 02-13-2024 Glaucoma screening Diabetic Ophthalmology Exam [facility] Start: 02-09-2024 Adult BMI Screening Adult BMI Screening [facility] Start: 02-09-2024 Tobacco Screening Tobacco Screening [facility] Start: 12-15-2023 ambulatory Ambulatory Facility:[facility] Start: 07-24-2023 Depression Screening Depression Screening [facility] Start: 07-24-2023 Fall Risk Screening Fall Risk Screening [facility] Start: 01-22-2023 COVID-19 Vaccine () COVID-19 Vaccine () [facility] Start: 01-22-2023 Influenza vaccination Influenza Vaccine [facility] Start: 10-14-2021 DTaP,Tdap and Td Vaccines (2 - Td or Tdap) DTaP,Tdap and Td Vaccines (2 - Td or Tdap) [facility] Start: 2001 Administration of varicella zoster vaccine Zoster (Shingles) Vaccine (1 of 2) [facility] Start: 1969 Diabetic foot examination Diabetic Foot Exam [facility] Start: 1950 Medicare Annual Wellness Visit Medicare Annual Wellness Visit [facility] Immunizations Immunization Date Immunization Notes Care Provider Fa cility 03-15-2022 Influenza Vaccine, Quadrivalent, Adjuvanted [facility] 03-15-2022 influenza virus vaccine, unspecified formulation [facility] 05-06-2021 Influenza, High-dose , Quadrivalent [facility] 02-22-2020 influenza, high dose seasonal, preservative[facility] 02-06-2020 influenza, high dose seasonal, preservative-[facility] 08-02-2019 pneumococcal polysaccharide vaccine, 23 valent [facility] 07-31-2019 influenza, high dose seasonal, preservative-free [facility] 05-21-2018 influenza, high dose seasonal, preservative-free [facility] 11-11-2017 pneumococcal polysaccharide vaccine, 23 valent [facility] 07-20-2014 pneumococcal conjuga te vaccine, 13 valent [facility] 02-24-2013 influenza virus vaccine, unspecified formulation [facility] 10-15-2011 tetanus toxoid, redu wanda diphtheria toxoid, and acellular pertussis vaccine, adsorbed [facility] NEGATED: Highlighted row has not occurred!11-26-2021 SARS-CoV-2 mRNA (toberenameran 5y-11y) vaccine Norma Pulido [facility] Payers Date Payer Category Payer Private Health Insurance 2022 Medicare AETNA MEDICARE A ETNA MEDICARE PLAN (PPO) [id number] 2022-Present [phone] [address] [place] [address] [id number] 1958 Medicare [id number] 1958 Medicare [id number] 1958 Medicare [id number] 1950 Unknown [id number] [id number] 1950 Unknown [id number] [id number] 1950 Unknown [id number] 2.16.840.1.663721.3.579.2.5 1950 Unknown [id number] 2.16.840.1.237545.3.579.2.5 1951 Unknown [id number] 2.16.840.1.427024.3.579.2.5 1951 Unknown [id number] 2.16.840.1.027504.3.579.2.5 1950 Unknown [id number] 2.16.840.1.487653.3.579.2.5 1950 Unknown [id number] 2.16.840.1.412468.3.579.2.5 1950 Unknown [id number] 2.16.840.1.277770.3.579.2.5 1950 Unknown [id number] 2.16.840.1.476343.3.579.2.7 1950 Unknown [id number] 2.16.840.1.736768.3.579.2.7 1950 Unknown [id number] 2.16.840.1.359234.3.579.2.7 27 1950 Unknown [id number] [id number] 96 Social History Date Type Detail Facility Start: 06-04-2021 End: 04-13-2022 Tobacco smoking status Never smoked tobacco (finding) [facility] Start: 06-05-2020 End: 02-08-2023 Sex Assigned At Female [facility] Tobacco smoking status Never [facility] Start: 04-13-2022 Tobacco use and exposure Smokeless tobacco non-user [facility] [facility] Start: 02-08-2023 Alcohol intake Ex-drinker (finding) [facility] Start: 06-05-2020 End: 02-08-2023 History of Social function [facility] Start: 1950 Sex Assigned At Not on file [facility] Functional Status Date Assessment Result Facility 11-26-2021 Functional Status N/A [facility] Clinical Notes 11-26-2021 to 06-07-2023 Note Date & Type Note Facility 06-07-2023 Evaluation note Encounter Date Diagnosis Assessment Notes May, Type 2 diabetes mellitus with hyperglycemia , without long-term current use of insulin (ICD-10 - E11.65) [place] [employer] Other 01-15-2024 Miscellaneous Notes* Telephone Encounter - Bridget Cummins CMA - 06/07/2023 11:34 AM EST Called patient to reschedule appointment documented in this encounterSamaritan [facility] CenterOSSIANIX [id number] Telephone encounter Note* Telephone Encounter - Bridget Cummins CMA - 06/07/2023 11:34 AM EST Called patient to reschedule appointment [facility]01-09-2024 Evaluation note* Encounter Date Diagnosis Assessment Notes Treatment Notes Treatment Clinical Notes May, Essential (primary) hypertension (ICD-10 - I10) [facility] 11-21-2023 Evaluation note* Encounter Date Diagnosis Assessment Notes Treatment Notes Treatment Clinical Notes Mar, Lumbar back pain with radiculopathy affecting right lower extremity (ICD-10 - M54.16) Discussed holding atorvastatin to help with muscle pain. Pt agrees to referral to Pain Mgmt. Has had benign xrays of back and hip, per her report. [facility] Other 10-18-2023 Evaluation note* Encounter Date Diagnosis Assessment Notes Treatment Notes Treatment Clinical Notes Feb, Recurrent occipital headache (ICD-10 - R51.9) [facility] 10-09-2023 Evaluation note* Encounter Date Diagnosis Assessment Notes Treatment Notes Treatment Clinical Notes Feb, Essential (primary) hypertension (ICD-10 - I10) [facility] 09-26-2023 Evaluation note* Encounter Date Diagnosis [...] worsened since starting eliquis. [facility]. [facility] Other 09-14-2023 Evaluation note* Encounter Date Diagnosis Assessment Notes Treatment Notes Treatment Clinical Notes Jan, Acute deep vein thrombosis (DVT) of calf muscle vein of right lower extremity (ICD-10 - I82.461) Wrote out instructions and gave samples of eliquis. Has appt later this week w vascular in [place]. Pt expresses understanding of the seriousness of this problem and will follow up w vascular and attribute to their treatment plan for DVT. [facility] Other 09-07-2023 Evaluation note* Encounter Date Diagnosis Assessment Notes Treatment Notes Treatment Clinical Notes Jan, Cervical pain (neck) (ICD-10 - M54.2) Printed order for PT. continue NSAIDs and heat therapy. Suspect her headaches are due to cervical problems. Jan, Varicose veins of both lower extremities with pain (ICD-10 - I83.813) Pt agrees to referral to vascular surgery for her prominent painful varicose veins. [facility] Other 07-28-2023 Evaluation note* Encounter Date Diagnosis Assessment Notes Treatment Notes Treatment Clinical Notes Nov, Type 2 diabetes mellitus with hyperglycemia, without long-term current use of insulin (ICD-10 - E11.65) [facility] Other 05-03-2023 Evaluation note* Encounter Date Diagnosis Assessment Notes Treatment Notes Treatment Clinical Notes September, Abnormal mammogram of right breast (ICD-10 - R92.8) [facility] Other 04-18-2023 Evaluation note* Encounter Date Diagnosis Assessment Notes Treatment Notes Treatment Clinical Notes Aug, Vaginal yeast infection (ICD-10 - B37.31) Complete med and call if symptoms continue Aug, Screening mammogram for breast cancer (ICD-10 - Z12.31) [facility] Other 04-06-2023 Evaluation note* Encounter Date Diagnosis [...] - I10) Chronic problem - requests refill. [facility] Other 03-22-2023 NotePROCEDURE: XR HIP RT 2 3V W PELVIS HISTORY: Pain in right leg ; low back pain COMPARISON: None. FINDINGS: BONES:No fracture, acute abnormality, or significant arthropathy. SOFT TISSUES:No visible soft tissue swelling. EFFUSION:None visible. OTHER: Negative. IMPRESSION: 1. No acute bone abnormality or significant degenerative changes of the hip joints. Electronically authenticated by: CIPRIANO MENON Date: 2022-08-12 09:35[facility]03-20-2023 Evaluation note* Encounter Date Diagnosis [...] levels and will check later this week [facility] Other 07-06-2022 Hospital Discharge instructions Patient Education [...] Follow these instructions at home: Medicines Take dnnp-nim-rkonxvt and prescription medicines only as told by [...] or the blood stops without treatment. Take pufj-osh-zlzjreg and prescription medicines only as told by your health care provider. Drink enough fluid to keep your urine clear or pale yellow. This information is not intended to replace advice given to you by your health care provider. Make sure you discuss any questions you have with your health care provider. Document Released: 05/10/2006 Document Revised: 10/04/2019 Document Reviewed: 06/12/2017 [employer] Patient Education 2019 [employer]. Follow Up Care 11/18/2021 15:11:49 With:Ashok LAWTON, Norma Chambers, URL, URO Address: When:1 year Comments:Renal US [facility] evaluation + Plan note Future Appointments Appointment Date:12/02/2022 08:00:00 AM Scheduled Provider:Norma Pulido MD Location:[facility] Appointment Type:URO Office Visit [facility] evaluation + Plan note Future Appointments Appointment Date:12/15/2023 09:00:00 AM Scheduled Provider:Norma Pulido MD Location:[facility] Appointment Type:URO Office Visit Diagnostic Tests Pending * Urine Culture [facility]22 [facility]No [facility] [employer] Other History general Narrative - Reported* Type Description Date Medical History Hyperlipidemia Medical History Diabetes Medical History Hypertension Surgical History Hysterectomy 1987 [facility] [employer] Other History general Narrative - Reported* Type Description Date Medical History Hyperlipidemia Medical History Diabetes Medical History Hypertension Surgical History Hysterectomy 1987 Hospitalization History SEE SURGICAL HX [place] [employer] Other Hospital course Narrative No data available for this section [facility] [employer] [facility] Discharge instructions No data available for this section [facility] CenterInstructionsNot on filedocumented in this encounter [facility] SystemProgress note No data available for this section [facility] Summary Purpose Family History No Family History Records FoundNo Family History Records FoundNo Family History Records FoundNo Family History Records Found Advance Directives No Advanced Directives Records FoundNo Advanced Directives Records FoundNo Advanced Directives Records FoundNo Advanced Directives Records Found Reason for Referral Reason R lumbar pain referr ed to R quads and R knee area. Diagnosis 1 Lumbar back pain wit h radiculopathy affecting right lower extremity (M54.16) Referral Organization [facility] [employer] Referring Provider First Name Elisha Referring Provider Last Name Neida Referring Provider Specialty [facility] Referred Organization [facility] Referred Address [address] [place], [place],[address] Referred Provider Specialty Pain Medicin e Referral Priority Routine Reason [facility] [place] office? Last 2 OV, had xray and MRI. Occipital headaches Diagnosis 1 Recurrent occipital headache (R51.9) Referral Organization [facility] [employer] Referring Provider First Name Elisha Referring Provider Last Name Neida Referring Provider Specialty [facility] Referred Organization [facility] Referred Address [address] [place] [place], [place],[address] Referred Provider Specialty Neurology Referral Priority Routine Reason [facility] [place] - varicose veins that are tender R>L Diagnosis 1 Varicose veins of yong th lower extremities with pain (I83.813) Referral Organization [facility] Referring Provider First Name Elisha Referring Provider Last Name Neida Referring Provider Specialty [facility] Referred Organization [facility] Referred Provider Betty Matos Referred Address [address],[place], [place],[address] Referred Provider Specialty [facility]ascular Tena rj Referral Priority Routine General Notes Giselle Levy 11:48:16 AM >received today, attachments made, waiting for notes to be locked Giselle Levy 02/02/2023 09:22:14 AM >SENT TE TO LOCK NOTES Clinical Notes P: [phone] F: [id number] Additional Source Comments Care Team (unrecognized sect ion and content) 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 Relationship Specialty Start Date End Date Elisha Carrasquillo MD [address] [place] [address] PCP - General Family Medicine 02/04/23 INFORMATION SOURCE (unrecogn ized section and content) DATE CREATED AUTHOR 11/27/2021 [facility] DATE CREATED AUTHOR AUTHOR'S ORGANIZ ATION 10/06/2022 [facility] DATE CREATED AUTHOR AUTHOR'S ORGANIZ ATION [facility]/03/2023 [facility] DATE CREATED AUTHOR AUTHOR'S ORGANIZ ATION 06/02/2023 [facility] REASON FOR VISIT (unrecogniz ed section and content) Check [employer]pl[employer] and xrayNot Fee ling Well-COVID Negativereaction to medicationmammogramrefillHeadachesNOTES NEEDING LOCKEDUS Resultsheadache/medication discussionmessageRefilltests.medication questionbone painmessagerefillrefill FOR RECORDS PERTAINING TO PATIENTS WHO ARE [...] BE BASED ON THE PRIMARY CLINICAL RECORDS. [employer] provides no warranty or guarantee of the accuracy or completeness of information in this document.
[2023-06-09 10:48] LABS: Estimated Average Glucose 174 mg/dL; Glycohemoglobin A1C 7.7 % (4.5-6.2)
[2023-06-09 11:04] LABS: Alanine Aminotransferase 15 U/L (14-59); Albumin Level 3.7 g/dL (3.4-5.0); Alkaline Phosphatase 45 U/L (46-116); Anion Gap 10.9; Aspartate Amino Transferase 11 U/L (15-37); BUN Creatinine Ratio 13.8; Bilirubin Total 0.7 mg/dL (0.2-1.0); Calcium 8.9 mg/dL (8.5-10.1); Carbon Dioxide 30.6 mmol/L (21.0-32.0); Chloride 105 mmol/L (98-107); Estimated GFR (African America >60 (>=60); Estimated GFR (Non-African Ame >60 (>=60); Globulin 3.7 g/dL; Glucose 149 mg/dL (74-106); Potassium 3.5 mmol/L (3.5-5.1); Sodium 143 mmol/L (136-145); Thyroid Stimulating Hormone 1.877 uIU/mL (0.358-3.740); Total Protein 7.4 g/dL (6.4-8.2)
[2023-06-09 11:07] LABS: Basophils Percent Auto 0.6 % (0.2-2.0); Eosinophils Absolute Auto 0.1 10^3/uL (0.0-0.7); Eosinophils Percent Auto 1.9 % (0.9-7.0); Hematocrit 36.8 % (36.0-48.0); Hemoglobin 12.6 g/dL (12.0-16.0); Immature Granulocytes Abs Auto 0.01 10^3/uL (0.00-0.03); Immature Granulocytes Pct Auto 0.2 % (0.0-0.5); Lymphocytes Absolute Auto 2.2 10^3/uL (1.2-3.8); Lymphocytes Percent Auto 41.3 % (20.5-60.0); Mean Corpuscular HGB Conc 34.2 g/dL (29.9-35.2); Mean Corpuscular Hemoglobin 29.2 pg (26.7-34.0); Mean Corpuscular Volume 85.2 fL (81.0-99.0); Mean Platelet Volume 11.4 fL (9.5-13.5); Monocytes Absolute Auto 0.4 10^3/uL (0.3-0.8); Monocytes Percent Auto 8.1 % (1.7-12.0); Neutrophils Absolute Auto 2.5 10^3/uL (1.4-6.5); Neutrophils Percent Auto 47.9 % (43.0-75.0); Platelet Count 197 10^3/uL (150-450); Red Blood Count 4.32 10^6/uL (4.20-5.40); Red Cell Distribution Width 12.2 % (11.0-15.0); White Blood Count 5.2 10^3/uL (4.0-11.0)
== END 2023-06-09 10:10 | disposition home or self-care (01) ==
LOC: LAB 10:11
PROVIDERS: PCP Family Medicine; Visit Provider Family Medicine
DX: E11.65 Type 2 diabetes mellitus with hyperglycemia (principal); I10 Essential (primary) hypertension; R53.82 Chronic fatigue, unspecified
CPT/HCPCS: 36415; 80053; 82728; 83036; 84443; 85025

== ENCOUNTER 2023-06-15 03:06 | Emergency (ER) | payer MEDICARE, SELFPAY ==
[2023-06-15 03:10] VITALS: BP 154/80; PULSE 79; RESP 16; TEMP 36.6; O2SAT 96; BMI 23.8
--- NOTE | 2023-06-15 03:20 | ED.HEATRA1 ---
HPI - Head Injury General Chief complaint: Head Injury Stated complaint: head injury fall 06/15 Time Seen by Provider: 06/15/23 03:17 Source: patient Mode of arrival: walk-in Limitations: no limitations History of Present Illness HPI Narrative: patient states she fell at home this AM and struck her forehead. No LOC. She does take Eliquis. No nausea or dizziness. neck is sore. No weakness of the upper or lower extremities MD Complaint: Reports head injury Related Data Home Medications Medication Instructions Recorded Confirmed apixaban 2.5 mg tablet (Eliquis) 2.5 mg PO BID 02/06/23 06/15/23 amlodipine 5 mg tablet 5 mg PO DAILY 05/31/23 06/15/23 atorvastatin 20 mg tablet 20 mg PO DAILY 05/31/23 06/15/23 meloxicam 7.5 mg tablet 7.5 mg PO DAILY 05/31/23 05/31/23 metformin 500 mg tablet 500 mg PO DAILY 05/31/23 06/15/23 Previous Rx's Medication Instructions Recorded ondansetron 4 mg disintegrating 4 mg PO Q6H PRN nausea and 05/18/23 tablet vomiting #14 tabs Allergies Allergy/AdvReac Type Severity Reaction Status Date / Time amoxicillin Allergy Unknown Verified 06/15/23 03:13 cefdinir Allergy Unknown Verified 06/15/23 03:13 lisinopril Allergy Unknown Verified 06/15/23 03:13 metformin Allergy Unknown Verified 06/15/23 03:13 sulfamethoxazole Allergy Unknown Verified 06/15/23 03:13 [From Bactrim] trimethoprim [From Bactrim] Allergy Unknown Verified 06/15/23 03:13 Review of Systems ROS Status of ROS 10 or more systems reviewed and unremarkable except as noted in history and below [facility] Social History Smoking status: Never smoker Exam Constitutional Vital Signs, click to edit/add: Last Vital Signs Temp 97.9 F 06/15/23 03:10 Pulse 79 06/15/23 03:10 Resp 16 06/15/23 03:10 BP 154/80 H 06/15/23 03:10 Pulse Ox 96 06/15/23 03:10 O2 Del Method Room Air 06/15/23 03:10 Common normals: no apparent distress, oriented x3, no limitations, healthy appearing, alert and well nourished [facility] Common normals: normocephalic and head/scalp atraumatic Eye Common normals: PERRL, EOMs intact bilaterally and conjunctivae normal Respiratory Common normals: normal respiratory effort, no retractions and no use of accessory muscles Cardio Common normals: regular rate, regular rhythm, S1 normal heart sound and S2 normal heart sound GI Common normals: Normal to inspection, nondistended, normoactive bowel sounds present, soft to palpation and non-tender Extremity Common normals: normal to inspection Neuro Common normals: oriented x3, CN's II-XII intact bilaterally, moves all extremities and no focal motor deficits Psych Appearance: grossly normal Course Vital Signs Vital signs: Vital Signs Temperature 97.9 F 06/15/23 03:10 Pulse Rate 79 06/15/23 03:10 Respiratory Rate 16 06/15/23 03:10 Blood Pressure 154/80 H 06/15/23 03:10 Pulse Oximetry 96 06/15/23 03:10 Oxygen Delivery Method Room Air 06/15/23 03:10 Temperature 97.9 F 06/15/23 03:10 Pulse Rate 79 06/15/23 03:10 Respiratory Rate 16 06/15/23 03:10 Blood Pressure 154/80 H 06/15/23 03:10 Pulse Oximetry 96 06/15/23 03:10 Oxygen Delivery Method Room Air 06/15/23 03:10 MDM - Head Injury MDM Narrative Medical decision making narrative: patient presents after a fall and striking her forehead. Neg neuro symptoms and her exam is neg. She does take Eliquis. CT brain and C-spine neg. Discharged home in stable condition Imaging Data CT scan - head: Radiologist's impression: ITS Impressions Cervical Spine CT 06/15/23 03:22 IMPRESSION: 1. No CT evidence of acute abnormalities throughout the cervical spine. 2. Multilevel degenerative changes. Electronically authenticated by: VISHAL AREVALO Date: 06/15/2023 04:[address] 06/15/23 03:22 IMPRESSION: No CT evidence of acute intracranial abnormalities. Chronic intracranial changes, as described above. Electronically authenticated by: VISHAL AREVALO Date: 06/15/2023 04:28 Discharge Plan Discharge Chief Complaint: Head Injury Clinical Impression: Head injury Patient Disposition: Home, Self-Care Prescriptions / Home Meds: No Action Eliquis 2.5 mg tablet 2.5 mg PO BID amlodipine 5 mg tablet 5 mg PO DAILY atorvastatin 20 mg tablet 20 mg PO DAILY meloxicam 7.5 mg tablet 7.5 mg PO DAILY metformin 500 mg tablet 500 mg PO DAILY ondansetron 4 mg tablet,disintegrating 4 mg PO Q6H PRN (Reason: nausea and vomiting) Qty: 14 0RF Instructions: Head Injury (ED) Stand Alone Forms: Portal Instructions Referrals: Elisha James MD [Primary Care Provider] - 1 week
--- NOTE | 2023-06-15 03:22 | CT_ITS ---
The [address] [address] Patient Name: PEARL HAWKINS MRN: [id number] date: 1950 Sex: F Assigned Patient Location: Current Patient Location: Accession/Order Number: [id number] Exam Date: 06/15/2023 03:35 Report Date: 06/15/2023 04:34 At the request of: SHARON BYRD Procedure: CT cervical spine wo con EXAMINATION: CT Cervical Spine without IV Contrast TECHNIQUE: Standard protocol axial Cervical spine CT was performed without intravenous contrast. Multiplanar reformatted images were created according to the routine protocol. QPP DOCUMENTATION: At least one of the following dose reduction techniques was utilized: Iterative reconstruction, and/or Automatic Exposure Control, and/or mA/kV adjustment based on body size. INDICATION: . headinjury COMPARISON: None FINDINGS: Segmentation: There are 7 cervical vertebrae. Alignment: Minimal anterolisthesis of C4 on C5 and C7 on T1. Vertebrae: No evidence of fractures or significant losses of vertebral body heights. Intervertebral Discs: Mild disc space narrowing at C5-C6 and C6-C7. Mild vacuum disc phenomenon at C6-C7. There are small anterior endplate osteophytes at multiple levels. Spinal Canal: No significant osseous encroachment upon the spinal canal. Neural foramina: There is multilevel facet arthropathy which is most notable on the left at C4-C5 and C5-C6. There is also uncovertebral arthropathy at C6-C7. These changes result in mild to moderate foraminal stenosis at C6-C7. There is also mild foraminal stenosis on the left at C4-C5. Paraspinal Tissues: Unremarkable. Additional Findings: None. CT/CT cervical spine wo con IMPRESSION: 1. No CT evidence of acute abnormalities throughout the cervical spine. 2. Multilevel degenerative changes. Electronically authenticated by: VISHAL AREVALO Date: 06/15/2023 04:34
--- NOTE | 2023-06-15 03:22 | CT_ITS ---
[address] [address] Patient Name: PEARL HAWKINS MRN: [id number] date: 1950 Sex: F Assigned Patient Location: ER [facility] Access[facility]/Order Number: [id number] Exam Date: 06/15/2023 03:35 Report Date: 06/15/2023 04:28 At the request of: SHARON BYRD Procedure: CT head/brain wo con EXAM: CT head/brain wo con EXAMINATION: CT Head without Contrast TECHNIQUE: Multiple axial noncontrast images of the brain were obtained and reformatted according to the standard protocol. Q DOCUMENTATION: At least one of the following dose reduction techniques was utilized: Iterative reconstruction, and/or Automatic Exposure Control, and/or mA/kV adjustment based on body size. INDICATION: head injury COMPARISON: MRI brain, 03/04/2023 FINDINGS: Intracranial hemorrhage: No CT evidence of intraparenchymal, intraventricular, or extraaxial hemorrhage. Infarct/Vascular: No evidence of acute transcortical infarctions. Patchy hypoattenuation throughout the supratentorial white matter is nonspecific but commonly associated with chronic small vessel ischemic disease. Intracranial Mass: No space-occupying intracranial lesions. CSF Spaces: The ventricles, sulci, and cisterns are normal. Calvarium and Scalp: Unremarkable. Mastoid Air Cells: Clear. Paranasal Sinuses: Visualized paranasal sinuses are clear. Orbits: Orbits are unremarkable. CT/CT head/brain wo con IMPRESSION: No CT evidence of acute intracranial abnormalities. Chronic intracranial changes, as described above. Electronically authenticated by: VISHAL AREVALO Date: 06/15/2023 04:28
--- OUTSIDE RECORDS SUMMARY | 2023-06-15 03:26 | XMS_ITS | CCD ---
Author Name Unknown Address [address] [place] [address] Organization [facility] Care Team Providers Care 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 Name Role Phone BRUCE WALLER Primary Care Physician [phone] Elisha Carrasquillo NEIDA, DR ELISHA Lara Attending Unavailable CARRASQUILLO, DR ELISHA Lara Admitting Unavailable ZIEBER, DR CIPRIANO Soto Consulting Unavailable CARRASQUILLO, DR ELISHA Lara Primary Care Unavailable CARRASQUILLO, DR ELISHA Lara Consulting Unavailable CARRASQUILLO, DR ELISHA Lara Primary Care Unavailable CARRASQUILLO, DR ELISHA Lara Attending Unavailable KINSMAN, DR BRYCE Garcia Consulting Unavailable CARRASQUILLO, DR ELISHA Lara Admitting Unavailable CARRASQUILLO, DR ELISHA Lara Consulting Unavailable CARRASQUILLO, DR ELISHA Lara Primary Care Unavailable CARRASQUILLO, DR ELISHA Lara Attending Unavailable ZIEBER, DR CIPRIANO Soto Consulting Unavailable CARRASQUILLO, DR ELISHA Lara Admitting Unavailable CARRASQUILLO, DR ELISHA Lara Consulting Unavailable DIAB ., ESA Consulting Unavailable DIAB ., ESA Attending Unavailable FURLOFRANCIS, DR BRUCE Porter Primary Care Unavailable DIAB [...] MARKER ., DR MCCONNELL Admitting Unavailable SAID, RAYNE Consulting Unavailable CARRASQUILLO, DR ELISHA Lara Primary Care Unavailable LARRY ., DR PASTOR Consulting Unavailable LARRY ., DR PASTOR Attending Unavailable LARRY ., DR PASTOR Admitting Unavailable ZIEBER, DR CIPRIANO Soto Consulting Unavailable FURMINDYNG, DR BRUCE Porter Primary Care Unavailable LARRY ., DR PASTOR Consulting Unavailable LARRY ., DR PASTOR Attending Unavailable LARRY ., DARBY Admitting Unavailable SRIDHAR, DR BRUCE Porter Primary Care Unavailable NORMA STOVALL Attending Unavailable LOBITO YEE Consulting Unavailable NORMA STOVALL Admitting Unavailable NORMA STOVALL Consulting Unavailable ELISHA CARRASQUILLO Primary Care Physician Norma Pulido Attending Unavailable KRISTINE WESTON Attending Unavailab KRISTINE Benavides Attending UnavailKRISTINE Thomas Admitting UnavailKenji Hudson MD Attending Unavailable Elisha Carrasquillo MD Primary Care Provider Allergies Allergy Classification Reported Allergen(s) Allergy Type Date of Onset Reaction(s) Facility (20 sources) Amoxicillin; Translations: [amoxicillin] Drug Allergy 2 Eruption of skin (disorder), Hives, Rash [facility] (20 sources) cefdinir; Translations: [cefdinir] Drug Allergy 2 Eruption (morphologic abnormality), Rash, Hives [facility] (20 sources) Lisinopril; Translations: [lisinopril] Drug Allergy 2 Cough (finding), Cough [facility] (4 sources) metFORMIN; Translations: [metformin] Drug Allergy Other (qualifier value) [facility] (20 sources) Sulfamethoxazole / Trimethoprim; Translations: [sulfamethoxazole-tr imethoprim] Drug Allergy 2 Other (qualifier value), Other (See Comments) [facility] (1 source) Amino Acids Drug Allergy 3 [facility] (1 source) Amoxicillin Drug Allergy 1 [facility] (1 source) cefdinir Drug Allergy 3 [facility] (1 source) metFORMIN Drug Allergy 3 [facility] (1 source) Sulfamethoxazole / Trimethoprim Drug Allergy 3 [facility] (1 source) metFORMIN Drug Allergy 2 Other (See Comments) [facility] Medications Current Medications Medication Drug Class(es) Dates Sig (Normalized) Sig (Original) 600+D3 600-20 MG-MCG (15 sources) take 1 tablet by mouth once daily 600+D3 600-20 MG-MCG 1 tablet with a meal Orally Once a day Active [id number] 200 actuat albuterol 0.09 mg/actuat metered dose [...] 06/11/2022 Active apixaban 5 mg oral tablet (8 sources) Factor Xa Inhibitor take 1 tablet [...] mg / cholecalciferol 800 unt oral tablet (5 sources) Vitamin D take 1 tablet by [...] 20 mg/ml oral solution (1 source) Uncompetitive P-dpnron-Z-asparta te Receptor Antagonist, Sigma-1 Agonist Start: 07-03-2022 [...] Status: Ordered take 1 tablet by rebekah every twelve hours Meclizine HCl 25 MG [...] tablet by rebekah th every twelve hours metFORMIN HCl 1000 MG 1 tablet with a me al Orally bid for 90 days Active take 1 tablet by rebekah th every twenty-four hours metFORMIN HCl 500 MG 1 tablet with a kyle l Orally Once a day for 90 days [...] unspecified, not intractable] Onset: 03-27-2022 03-27-2022 Chronic Malaise and fatigue (3 sources) Fatigue; Translations: [Chronic fatigue, unspecified] Chronic Mood disorders (1 source) Depressive disorder; [...] source) Long-term current use of aspirin; Translations: [buttermaker (current) use of aspirin] Onset: 11-26-2021 Episodic Other aftercare (1 source) buttermaker (current) use of oral hypoglycemic drugs; Translations: [[facility] USE ORAL HYPOGLYCEMIC DX] Onset: 07-20-2022 Episodic Other aftercare (1 source) Other jail (current) drug therapy; Translations: [OTH HOG COUNTER CURRENT DRUG THERAPY] Onset: 07-20-2022 Episodic Other [...] bladder 12-09-2022 Varicose veins of lower extremity (15 sources) Varicose veins of lower extremity; Translations: [...] - Ultrasound Reporton RAD - Ultrasound Report [id number] Normal [facility] C Urineon 12-11-2022 Bacteria identified Cx [...] Locations R1: This test was performed at: [facility], [address] [place] [address], [facility]- , , [facility] Comment on above: Performed By: #### 2 [id number] #### [facility] [address] [place] [address] Ambulatory Visit Summaryon 0 12-09-2022 Ambulatory Visit Summary PEARL HAWKINS :1950 Visit Date:12/09/2022 Ambulatory Visit Instructions Your Diagnosis Asymptomatic microscopic hematuria Renal cyst Leaking of urine Feeling of incomplete bladder emptying Aspirin long-term use Tests Performed Urnls Dip Stick Auto w/o Microscopy POC 60410 Your Care Team Attending Physician - SADAF [...] LAWTON, Norma Chambers Where: [facility] Patient Educationon 12-10-19 Patient Education Urology [...] these instructions at home: Medicines ? Take cikk-cgq-gprbjsq and prescription medicines only as told by [...] the blood stops without treatment. ? Take xfdr-juu-rtmfrqc and prescription medicines only as told by your health care provider. ? Drink enough fluid to keep your urine pale yellow. This information is not intended to replace advice given to you by your health care provider. Make sure you discuss any questions you have with your health care provider. Document Revised: 01/08/2021 Document Reviewed: 01/08/2021 [employer] Patient Education ? 2022 [employer] Normal [facility] URINALYSISOrdered By: Stephanie moy on 12-09-2022 Bilirubin Ql (U) Negative (12/09/22 3:29 PM) Normal Negative [facility] UA Auto SS Clarity (U) Clear (12/09/22 [...] Interpretation Code Negative [facility] UA Auto SS [place].plasma/Lithi um.RBC (Bld) [Mass ratio] 0-3 /HPF Normal [...] [facility] UA Auto SS Urobilinogen Qn (U) 0.2680798 {Tyrell'U}/dL Normal 0.0 - 1.0 EU/dL [facility] UA Auto SS WBC Auto Ql (U) Negative (12/09/22 3:29 PM) Normal Negative [facility] UA Auto SS WBC LM.HPF (Urine sed) [#/Area] 0-5 /HPF Normal 0-5/HPF [facility] UA Auto SS Urinalysison 12-09-2022 Bilirubin Ql (U) Negative Normal Negative [facility] Comment on above: Performed By: #### 1 [id number] #### [facility] [address] [place] [address] Clarity (U) CLEAR Normal Clear [facility] Comment on above: Performed By: #### 1 [id number] #### [facility] [address] [place] [address] Color (U) YELLOW Normal Yellow [facility] Comment on above: Performed By: #### 1 [id number] #### [facility] [address] [place] [address] Crystals LM Ql (Urine sed) Present Normal [facility] Comment on above: Performed By: #### 1 [id number] #### [facility] [address] [place] [address] Epithelial cells.squamous LM.HPF (Urine sed) [#/Area] 0-2 Normal 0-2 [facility] Comment on above: Performed By: #### 1 [id number] #### [facility] [address] [place] [address] Glucose Test strip (U) [Mass/Vol] 1+ Abnormal Negative [facility] Comment on above: Performed By: #### 1 [id number] #### [facility] [address] [place] [address] Hemoglobin Ql (U) 2+ Abnormal Negative [facility] Comment on above: Performed By: #### 1 [id number] #### [facility] [address] [place] [address] Ketones (U) [Mass/Vol] TRACE Invalid Interpretation Code Negative [facility] Comment on above: Performed By: #### 1 [id number] #### [facility] [address] [place] [address] [place].plasma/Lithi um.RBC (Bld) [Mass ratio] 0-3 Normal 0-3 [facility] Comment on above: Performed By: #### 1 [id number] #### [facility] [address] [place] [address] Mucus Ql (Urine sed) 2+ Normal [facility] Comment on above: Performed By: #### 1 [id number] #### [facility] [address] [place] [address] Nitrite Ql (U) Negative Normal Negative [facility] Comment on above: Performed By: #### 1 [id number] #### [facility] [address] [place] [address] pH (U) 6.0 [pH] Invalid Interpretation Code 5.0-9.0 [facility] Comment on above: Performed By: #### 1 [id number] #### [facility] [address] [place] [address] Protein (U) [Mass/Vol] Negative Normal Negative [facility] Comment on above: Performed By: #### 1 [id number] #### [facility] [address] [place] [address] Specific gravity (U) [Rel density] 1.015 Invalid Interpretation Code 1.005-1.030 [facility] Comment on above: Performed By: #### 1 [id number] #### [facility] [address] [place] [address] Type of Urine collection method Random Urine Normal [facility] Comment on above: Performed By: #### 1 [id number] #### [facility] [address] [place] [address] Urobilinogen Qn (U) 0.2 {Tyrell'U}/dL Normal 0.0-1.0 [facility] Comment on above: Performed By: #### 1 [id number] #### [facility] [address] [place] [address] WBC Auto Ql (U) Negative Normal Negative [facility] Comment on above: Performed By: #### 1 [id number] #### [facility] [address] [place] [address] WBC LM.HPF (Urine sed) [#/Area] 0-5 Normal 0-5 [facility] Comment on above: Performed By: #### 1 [id number] #### [facility] [address] [place] [address] Urology Office/Clinic Noteon 12-09-2022 Urology Office/Clinic Note [...] cystoscopy, urine cytology and CT urogram from [facility] 06/10/21 noted no filling defects or [...] 25 mL. 5. Aspirin long-term use (Z79.82: buttermaker (current) use of aspirin) Risk of bleeding with procedures. Follow up in 1 yr. All questions/concerns were discussed. Pt to call the office if she encounters any issues prior. Pt acknowledges understanding. Follow-up With When Contact Information SADAF WESTON PA-C, URL In 1 day [address] [place] [address] Additional Instructions: Patient Education Hematuria, Adult Documentation recorded by the scribjulito Samuel accurately reflects the services(s) I performed and decisions made by me. Authenticated by Sadaf Weston PA-C on 12/09/2022 16:21:44. María Hubbard, personally scribed for Sadaf Weston PA-C on [...] Immunizations Vaccine Date Status Comments SARS-CoV-2 mRNA (toberenameran 5y-11y) vac - Not Given Postpone due to refusal (more content not included)... Normal [facility] Comment on above: Result Comment: Elec tronically Signed By: SADAF WESTON PA-C\.br\Date and Time Signed: 12/09/22 16:21 EDT\.br\Electronically Co-Signed By: María Samuel\.br\Date and Time Co-Signed: 12/09/22 15:13 EDT Reminderson 12-01-2022 Reminders - From: Divya Pitt To: PROSPER - Recalls Lue; Sent: 11/26/2021 09:02:57 EDT Show up: 11/05/2022 09:02:00 EDT Subject: renal US Reminder/Recall schedule prior to patients 12/02/2022 office visit Renal US scheduled for 12/02/22 @ [facility] Follow up has been rescheduled with VASILIY 12/09/22. [facility] MG MAMM RT DIAG FUon 023 MG MAMM RT DIAG FU Patient: PEARL HAWKINS Exam Date: 10/05/2022 : 1950 Gender:F Ordering : DR ELISHA CARRASQUILLO M.D. Admission #: [id number] Family : Order #: [id number] CLICK HERE TO VIEW EXAM RADIOLOGY REPORT [...] Treatments None Family Cancers None LOCATION: [facility] BREAST COMPOSITION: Heterogeneously dense,which may obscure [...] M.D. on 10/05/2022 at 08:35 Normal [facility] US BREAST RIGHT LIMITEDon US BREAST RIGHT LIMITED Patient: PEARL HAWKINS Exam Date: 10/05/2022 : 1950 Gender:F Ordering : DR ELISHA CARRASQUILLO M.D. Admission #: [id number] Family : Order #: [id number] CLICK HERE TO VIEW EXAM RADIOLOGY REPORT [...] Treatments None Family Cancers None LOCATION: [facility] BREAST COMPOSITION: Heterogeneously dense,which may obscure [...] M.D. on 10/05/2022 at 08:35 Normal [facility] MG MAMM SCREEN 3D SALMA CADon 09-22-2022 MG MAMM SCREEN 3D SALMA CAD Patient: PEARL HAWKINS Exam Date: 09/22/2022 : 1950 Gender:F Ordering : DR ELISHA CARRASQUILLO M.D. Admission #: [id number] Family : Order #: [id number] CLICK HERE TO VIEW EXAM RADIOLOGY REPORT [...] Treatments None Family Cancers None LOCATION: [facility] BREAST COMPOSITION: Heterogeneously dense,which may obscure [...] MD on 09/23/2022 at 08:48 Normal [facility] CBC AUTO DIFFon 08-12-2022 BASO # 0.0 103/ul Normal 0.0-0.1 [facility] Comment on above: Performed By: #### C BC ####[facility] [address] [place] [address]Dr. Silvino Clifton Basophils/100 WBC (Bld) 0.7 % Normal 0.2-2.0 [facility] Comment on above: Performed By: #### C BC ####[facility] [address] [place], [place] [address]Dr. Silvino Clifton EO # 0.1 103/ul Normal 0.0-0.7 [facility] Comment on above: Performed By: #### C BC ####[facility] [address] [place], [place] [address]Dr. Silvino Clifton Eosinophils/100 WBC (Bld) 2.1 % Normal 0.9-7.0 [facility] Comment on above: Performed By: #### C BC ####[facility] [address] [place], [place] [address]Dr. Silvino Clifton Erythrocyte distribution width (RBC) [Ratio] 12.3 % Normal 11.0-15.0 [facility] Comment on above: Performed By: #### C BC ####[facility] [address] [place], [place] [address]Dr. Silvino Clifton Hematocrit (Bld) [Volume fraction] 38.2 % Normal 36.0-48.0 [facility] Comment on above: Performed By: #### C BC ####[facility] [address] [place], [place] [address]Dr. Silvino Clifton Hemoglobin (Bld) [Mass/Vol] 12.8 g/dL Normal 12.0-16.0 [facility] Comment on above: Performed By: #### C BC ####[facility] [address] [place] [address]Dr. Silvino Clifton IG # 0.02 10e3/ul Normal 0.00-0.03 [facility] Comment on above: Performed By: #### C BC ####[facility] [address] [place] [address]Dr. Silvino Etienne IG % 0.3 % Normal 0.0-0.5 [facility] Comment on above: Performed By: #### C BC ####[facility] [address] [place] [address]Dr. Silvino Etienne LYMPH # 2.2 103/ul Normal 1.2-3.8 [facility] Comment on above: Performed By: #### C BC ####[facility] [address] [place] [address]Dr. Suzyoriana Clifton Lymphocytes/100 WBC (Bld) 35.4 % Normal 20.5-60.0 [facility] Comment on above: Performed By: #### C BC ####[facility] [address] [place] [address]Dr. Suzyoirana Clifton MANUAL DIFF REQ NO Normal [facility] Comment on above: Performed By: #### C BC ####[facility] [address] [place] [address]Dr. Silvino Clifton MCH (RBC) [Entitic mass] 28.0 pg Normal 26.7-34.0 [facility] Comment on above: Performed By: #### C BC ####[facility] [address] [place] [address]Dr. Silvino Clifton MCHC (RBC) [Mass/Vol] 33.5 g/dL Normal 29.9-35.2 [facility] Comment on above: Performed By: #### C BC ####[facility] [address] [place] [address]Dr. Silvino Etienne MCV (RBC) [Entitic vol] 83.6 fL Normal 81.0-99.0 [facility] Comment on above: Performed By: #### C BC ####[facility] [address] [place], [place] [address]Dr. Silvino Clifton MONO # 0.4 103/ul Normal 0.3-0.8 [facility] Comment on above: Performed By: #### C BC ####[facility] [address] [place] [address]Dr. Silvino Clifton Monocytes/100 WBC (Bld) 7.2 % Normal 1.7-12.0 [facility] Comment on above: Performed By: #### C BC ####[facility] [address] [place] [address]Dr. Silvino Clifton NEUT # 3.3 103/ul Normal 1.4-6.5 [facility] Comment on above: Performed By: #### C BC ####[facility] [address] [place] [address]Dr. Silvino Clifton Neutrophils/100 WBC (Bld) 54.3 % Normal 43.0-75.0 [facility] Comment on above: Performed By: #### C BC ####[facility] [address] [place] [address]Dr. Silvino Clifton Platelet mean volume (Bld) [Entitic vol] 11.3 fL Normal 9.5-13.5 [facility] Comment on above: Performed By: #### C BC ####[facility] [address] [place] [address]Dr. Silvino Clifton PLT 208 103/ul Normal 150-450 [facility] Comment on above: Performed By: #### C BC ####[facility] [address] [place] [address]Dr. Silvino Clifton RBC 4.57 106/ul Normal 4.20-5.40 [facility] Comment on above: Performed By: #### C BC ####[facility] [address] [place] [address]Dr. Silvino Clifton WBC 6.2 103/ul Normal 4.0-11.0 [facility] Comment on above: Performed By: #### C BC ####[facility] [address] [place] [address]Dr. Silvino Clifton GLYCOHEMOGLOBIN A1Con 03-22- 2023 ADA RECOMMENDATION SEE BELOW Normal [facility] Comment on above: Result Comment: ADA RECOMMENDED LIMIT 4.0 - 6.0 ADA THERAPEUTIC TARGET < 7.0 ACTION SUGGESTED > 7.0 Performed By: #### A 1C #### [facility] [address] [address] [address] Silvino Clifton Glucose [Mass/Vol] 169 mg/dL Normal [facility] Comment on above: Performed By: #### A 1C #### [facility] [address] [address] [address] Silvino Clifton HbA1c (Bld) [Mass fraction] 7.5 % Critically high 4.5-6.2 [facility] Comment on above: Performed By: #### A 1C #### [facility] [address] [place] [address] [address] Silvino Clifton LIPID PROFILEon 08-12-2022 CHOL-HDL RATIO NORM SEE BELOW Normal [facility] Comment on above: Result Comment: 3.3 - 4.4 LOW RISK 4.4 - 7.1 AVERAGE RISK 7.1 - 11.0 MODERATE RISK >11.0 HIGH RISK Performed By: #### M G, CMP, LIPID ####[facility] [address] [place] [id number] Clifton Cholesterol [Mass/Vol] 185 mg/dL Normal <=200 [facility] Comment on above: Performed By: #### M G, CMP, LIPID ####[facility] [address] [place] [address]DrNatividad Clifton Cholesterol in HDL [Mass/Vol] 58 mg/dL Normal 40-60 [facility] Comment on above: Performed By: #### M G, CMP, LIPID ####[facility] [address] [place] [address]DrNatividad Clifton Cholesterol in LDL [Mass/Vol] 95.4 mg/dL Normal [facility] Comment on above: Performed By: #### M G, CMP, LIPID ####[facility] [address] [place] [id number] Clifton Cholesterol.total/Ch olesterol in HDL [Mass ratio] 3.2 {ratio} Normal [facility] Comment on above: Performed By: #### M [place], CMP, LIPID ####[facility] [address] [place] [id number]. Silvino Clifton HDL NORMAL > or = 60 mg/dl - LO W CARDIOVASCULAR RISK <40 mg/dl - HIGH CARDIOVASCULAR RISK Normal [facility] Comment on above: Performed By: #### M [place], CMP, LIPID ####[facility] [address] [place] [id number]. Silvino Clifton LDL CALC NORMAL SEE BELOW Normal [facility] Comment on above: Result Comment: <100 mg/dl OPTIMAL 100 - 129 mg/dl NEAR OR ABOVE OPTIMAL 130 - 159 mg/dl BORDERLINE HIGH 160 - 189 mg/dl HIGH >190 mg/dl VERY HIGH Performed By: #### M [place], CMP, LIPID ####[facility] [address] [place] [address]Dr. Silvino Clifton Triglyceride [Mass/Vol] 158 mg/dL Critically high <=150 [facility] Comment on above: Performed By: #### Hang Porter, CMP, LIPID ####[facility] [address] [place] [address]Dr. Silvino Clifton VLDL CALC 31.6 mg/dL Normal [facility] Comment on above: Performed By: #### M [place], CMP, LIPID ####[facility] [address] [place] [address]Dr. Silvino Clifton MAGNESIUMon 08-12-2022 Magnesium [Mass/Vol] 1.6 mg/dL Critically low 1.8-2.4 [facility] Comment on above: Performed By: #### M [place], CMP, LIPID ####[facility] [address] [place] [address]Dr. Silvino Clifton PROF 14(COMP METB)on 023 Albumin [Mass/Vol] 4.0 g/dL Normal 3.4-5.0 [facility] Comment on above: Performed By: #### M [place], CMP, LIPID ####[facility] [address] [place] [address]Dr. Silvino Clifton Albumin/Globulin [Mass ratio] 1.2 {ratio} Normal [facility] Comment on above: Performed By: #### M G, CMP, LIPID ####[facility] [address] [place] [address]Dr. Silvino Clifton ALP [Catalytic activity/Vol] 61 U/L Normal 46-116 [facility] Comment on above: Performed By: #### M G, CMP, LIPID ####[facility] [address] [place] [address]Dr. Silvino Etienne ALT [Catalytic activity/Vol] 17 U/L Normal 14-59 [facility] Comment on above: Performed By: #### M G, CMP, LIPID ####[facility] [address] [place] [address]Dr. Silvino Clifton Anion gap [Moles/Vol] 11.8 mmol/L Normal [facility] Comment on above: Performed By: #### M G, CMP, LIPID ####[facility] [address] [place], [place] [address]Dr. Suzyoriana Clifton AST [Catalytic activity/Vol] 16 U/L Normal 15-37 [facility] Comment on above: Performed By: #### M G, CMP, LIPID ####[facility] [address] [place] [address]Dr. Suzyoriana Clifton Bilirubin [Mass/Vol] 0.4 mg/dL Normal 0.2-1.0 [facility] Comment on above: Performed By: #### M G, CMP, LIPID ####[facility] [address] [place] [address]Dr. Suzyoriana Clifton Calcium [Mass/Vol] 9.3 mg/dL Normal 8.5-10.1 [facility] Comment on above: Performed By: #### M G, CMP, LIPID ####[facility] [address] [place] [address]Dr. Silvino Clifton Chloride [Moles/Vol] 106 mmol/L Normal 98-107 [facility] Comment on above: Performed By: #### M G, CMP, LIPID ####[facility] [address] [place] [id number]. Silvino Etienne CO2 [Moles/Vol] 28.3 mmol/L Normal 21.0-32.0 [facility] Comment on above: Performed By: #### M G, CMP, LIPID ####[facility] [address]rrl[address] [place] [id number]. Silvino Clifton Creatinine [Mass/Vol] 0.72 mg/dL Normal 0.55-1.02 [facility] Comment on above: Performed By: #### M G, CMP, LIPID ####[facility] [address] [place] [id number]. Silvino Clifton EGFR-AF TAIWANESE >60 Normal >=60 [facility] Comment on above: Performed By: #### M G, CMP, LIPID ####[facility] Tlj[address]zdrso[address] [place] [id number]. Silvino Clifton EGFR-NON AF TAIWANESE >60 Normal >=60 [facility] Comment on above: Performed By: #### M G, CMP, LIPID ####[facility] Wajqmcvccd[address] [place] [id number]. Silvino Clifton Globulin (S) [Mass/Vol] 3.3 g/dL Normal [facility] Comment on above: Performed By: #### M G, CMP, LIPID ####[facility] Qukhgqkvpq[address] [place] [phone]. Silvino Clifton Glucose [Mass/Vol] 167 mg/dL Critically high 74-106 T [facility] Comment on above: Performed By: #### M G, CMP, LIPID ####[facility] [address] [place] [id number]. Silvino Clifton Potassium [Moles/Vol] 4.1 mmol/L Normal 3.5-5.1 [facility] Comment on above: Performed By: #### M G, CMP, LIPID ####[facility] [address] [place] [address]Dr. Silvino Clifton Protein [Mass/Vol] 7.3 g/dL Normal 6.4-8.2 [facility] Comment on above: Performed By: #### M G, CMP, LIPID ####[facility] [address]oz[address]wroog[address] [place] [phone]. Silvino Clifton Sodium [Moles/Vol] 142 mmol/L Normal 136-145 [facility] Comment on above: Performed By: #### M G, CMP, LIPID ####[facility] Rwqznweumv[address] [place] [id number]. Silvino Clifton Urea nitrogen [Mass/Vol] 13.0 mg/dL Normal 7.0-18.0 [facility] Comment on above: Performed By: #### M G, CMP, LIPID ####[facility] [address]qvlmmm[address] [place] [phone]. Silvino Clifton Urea nitrogen/Creatinine [Mass ratio] 18.1 mg/mg Normal [facility] Comment on above: Performed By: #### M G, CMP, LIPID ####[facility] Mel[address]acspxs[address] [place] [phone]. Silvino Clifton XR LSPINE 2_3 VIEWSon 2022 [...] by: CIPRIANO MENON Date: 2022-08-12 09:32 Normal [facility] XR DEXA BONE DENSITYon 08-11 XR DEXA [...] by: CIPRIANO MENON Date: 2022-08-11 13:51 Normal [facility] CT CSPINE WO CONon CT CSPINE WO [...] M JESUS Date: 2022-03-09 11:40 Normal [facility] CT HEAD WO CONon 03-09-2022 CT HEAD [...] JOSE M JESUS Date: 2022-03-09 11:29 Normal [facility] PAP ACOG PANEL 2: 30 to 65on 01-30-2022 . . Normal [facility] Comment on above: Performed By: #### 4 [id number] ####[facility] [address] [place] [address]DrNatividad Clifton Age Gdln ACOG Testing Comment Normal [facility] Comment on above: Result Comment: <21 or >65 or no age provided Performed By: #### 4 [id number] ####[facility] [address] [place], [place] [address]DrNatividad Clifton DIAGNOSIS: Comment Normal [facility] Comment on above: Result Comment: NEGA TIVE FOR INTRAEPITHELIAL LESION OR MALIGNANCY. CELLULAR CHANGES ASSOCIATED WITH ATROPHY ARE PRESENT. Performed By: #### 4 [id number] ####[facility] [address] [place] [address]Dr. Silvino Clifton Methodology: Comment [facility] Comment on above: Result Comment: This liquid based ThinPrep(R) pap test was screened with the use of an image guided system. Performed By: #### 4 [id number] ####[facility] [address] [place] [address]Dr. Silvino Clifton Note: Comment Normal [facility] Comment on above: Result Comment: The Pap smear is a screening test designed to aid in the detection of premalignant and malignant conditions of the uterine cervix. It is not a diagnostic procedure and should not be used as the sole means of detecting cervical cancer. Both false-positive and false-negative reports do occur. . Performed By: #### 4 [id number] ####[facility] [address] [place] [address]DrNatividad Clifton Performed by: Comment Normal The [facility] Comment on above: Result Comment: Isabel Gong, Woodworking Shop Laborer (ASCP) Performed By: #### 4 [id number] ####[facility] [address] [place], [place] [address]Si. Silvino Clifton Specimen adequacy: Comment Normal [facility] Comment on above: Result Comment: Sati sfactory for evaluation. Performed By: #### 4 [id number] ####[facility] [address] [place], [place] [address]Xl. Silvino Clifton BASIC METABOLIC PANELon 07-0 BUN/CREATININE RATIO NOT APPLICABLE Normal 6- [facility] Comment on above: Order Comment: FASTI NG:YES FASTING: YES Performed By: #### 1 0165, 496 #### [facility] [address], [address] [place] [address] Child And Youth Program Assistant: Scott Nichols MD Calcium [Mass/Vol] 9.6 mg/dL Normal 8.6-10.4 [facility] Comment on above: Order Comment: FASTI NG:YES FASTING: YES Performed By: #### 1 0165, 496 #### [facility] [address], [address] [place] [address] Child And Youth Program Assistant: Scott iNchols MD Chloride [Moles/Vol] 104 mmol/L Normal 98-110 [facility] Comment on above: Order Comment: FASTI NG:YES FASTING: YES Performed By: #### 1 0165, 496 #### [facility] [address], [address] [place] [address] Child And Youth Program Assistant: Scott Nichols MD CO2 [Moles/Vol] 31 mmol/L Normal 20-32 [facility] Comment on above: Order Comment: FASTI NG:YES FASTING: YES Performed By: #### 1 0165, 496 #### [facility] [place] [address] Child And Youth Program Assistant: Scott Nichols MD Creatinine [Mass/Vol] 0.64 mg/dL Normal 0.60-0.93 [facility] Comment on above: Order Comment: FASTI NG:YES FASTING: YES Result Comment: For patients >49 years of age, the reference limit for Creatinine is approximately 13% higher for people identified as -Sudanese. Performed By: #### 1 0165, 496 #### [facility] [address], [address] [place] [address] Child And Youth Program Assistant: Scott Nichols MD eGFR NON-AFR. TAIWANESE 90 mL/min/1.73m2 Normal > OR = 60 [facility] Comment on above: Order Comment: FASTI NG:YES FASTING: YES Performed By: #### 1 0165, 496 #### [facility] [address], [address] [place] [address] Child And Youth Program Assistant: Scott Nichols MD GFR/1.73 sq M.predicted among blacks MDRD (S/P/Bld) [Vol rate/Area] 105 mL/min/{1.73_m2} Normal > OR = 60 [facility] Comment on above: Order Comment: FASTI NG:YES FASTING: YES Performed By: #### 1 0165, 496 #### [facility] [address], [address] [place] [address] Child And Youth Program Assistant: Scott Nichols MD Glucose [Mass/Vol] 136 mg/dL High 65-99 [facility] Comment on above: Order Comment: FASTI NG:YES FASTING: YES Result Comment: Fasting reference interval For someone without known diabetes, a glucose value >125 mg/dL indicates that they may have diabetes and this should be confirmed with a follow-up test. Performed By: #### 1 0165, 496 #### [facility] [address], [address] [place] [address] Child And Youth Program Assistant: Scott Nichols MD Potassium [Moles/Vol] 4.3 mmol/L Normal 3.5-5.3 [facility] Comment on above: Order Comment: FASTI NG:YES FASTING: YES Performed By: #### 1 0165, 496 #### [facility] [address], [address] [place] [address] Child And Youth Program Assistant: Scott Nichols MD Sodium [Moles/Vol] 141 mmol/L Normal 135-146 [facility] Comment on above: Order Comment: FASTI NG:YES FASTING: YES Performed By: #### 1 0165, 496 #### [facility] [address], [address] [place] [address] Child And Youth Program Assistant: Scott Nichols MD Urea nitrogen [Mass/Vol] 9 mg/dL Normal 7-25 [facility] Comment on above: Order Comment: FASTI NG:YES FASTING: YES Performed By: #### 1 0165, 496 #### [facility] [address], [address] [place] [address] Child And Youth Program Assistant: Scott Nichols MD HEMOGLOBIN A1con 11-27-2021 HEMOGLOBIN [...] #### 1 0165, 496 #### [facility] [address], [address] [place] [address] Child And Youth Program Assistant: Scott Nichols MD URINALYSISOrdered By: Aggie Giron [...] AM) Normal Negative [facility] UA Auto SS [place].plasma/Lithi um.RBC (Bld) [Mass ratio] 0-3 /HPF Normal [...] Desc Clean Catch (11/26/21 10:54 AM) Normal [facility] UA Auto SS Urobilinogen Qn (U) 0.8718485 {Tyrell'U}/dL Normal 0.0 - 1.0 EU/dL [facility] Auto SS WBC Auto Ql (U) Negative (11/26/21 10:54 AM) Normal Negative [facility] UA Auto SS WBC LM.HPF (Urine sed) [#/Area] 0-5 /HPF Normal 0-5/HPF [facility] UA Auto SS CT ABD/PELVIS WO CONon [...] LOBITO YEE Date: 2021-11-24 01:04 Normal [facility] CBC AUTO DIFFon 11-12-2021 BASO # 0.1 103/ul Normal 0.0-0.1 [facility] Comment on above: Performed By: #### C BC ####[facility] [address] [place] [id number]. Silvino Clifton Basophils/100 WBC (Bld) 0.6 % Normal 0.2-2.0 [facility] Comment on above: Performed By: #### C BC ####[facility] [address] [place] [address]Dr. Silvino Clifton EO # 0.1 103/ul Normal 0.0-0.7 [facility] Comment on above: Performed By: #### C BC ####[facility] [address] [place], [place] [address]Dr. Silvino Clifton Eosinophils/100 WBC (Bld) 1.3 % Normal 0.9-7.0 [facility] Comment on above: Performed By: #### C BC ####[facility] [address] [place], [place] [address]Dr. Silvino Clifton Erythrocyte distribution width (RBC) [Ratio] 11.9 % Normal 11.0-15.0 [facility] Comment on above: Performed By: #### C BC ####[facility] [address] [place], [place] [address]Dr. Silvino Clifton Hematocrit (Bld) [Volume fraction] 37.6 % Normal 36.0-48.0 [facility] Comment on above: Performed By: #### C BC ####[facility] [address] [place], [place] [address]Dr. Silvino Clifton Hemoglobin (Bld) [Mass/Vol] 13.0 g/dL Normal 12.0-16.0 [facility] Comment on above: Performed By: #### C BC ####[facility] [address] [place] [address]Dr. Silvino Clifton IG # 0.04 10e3/ul Critically high 0.00-0.03 [facility] Comment on above: Performed By: #### C BC ####[facility] [address] [place] [phone]. Silvino Clifton IG % 0.5 % Normal 0.0-0.5 [facility] Comment on above: Performed By: #### C BC ####[facility] Merr[address]wbflo[address] [place] [phone]. Silvino Clifton LYMPH # 1.5 103/ul Normal 1.2-3.8 [facility] Comment on above: Performed By: #### C BC ####[facility] [address]ds[address] [place] [address]Dr. Silvino Clifton Lymphocytes/100 WBC (Bld) 18.9 % Critically low 20.5-60.0 [facility] Comment on above: Performed By: #### C BC ####[facility] [address] [place] [address]Dr. Silvino Clifton MANUAL DIFF REQ NO Normal [facility] Comment on above: Performed By: #### C BC ####[facility] [address]pedis[address] [place] [phone]. Suzyoriana Clifton MCH (RBC) [Entitic mass] 29.7 pg Normal 26.7-34.0 [facility] Comment on above: Performed By: #### C BC ####[facility] [address] [place] [address]Dr. Silvino Clifton MCHC (RBC) [Mass/Vol] 34.6 g/dL Normal 29.9-35.2 [facility] Comment on above: Performed By: #### C BC ####[facility] [address] [place] [address]Dr. Suzyoriana Clifton MCV (RBC) [Entitic vol] 85.8 fL Normal 81.0-99.0 [facility] Comment on above: Performed By: #### C BC ####[facility] [address] [place] [address]Dr. Silvino Clifton MONO # 0.5 103/ul Normal 0.3-0.8 [facility] Comment on above: Performed By: #### C BC ####[facility] Im[address]qnr[address] [place] [id number]. Silvino Clifton Monocytes/100 WBC (Bld) 6.1 % Normal 1.7-12.0 [facility] Comment on above: Performed By: #### C BC ####[facility] [address]bi[address] [place] [phone]. Silvino Clifton NEUT # 5.8 103/ul Normal 1.4-6.5 [facility] Comment on above: Performed By: #### C BC ####[facility] [address] [place] [phone]. Silvino Clifton Neutrophils/100 WBC (Bld) 72.6 % Normal 43.0-75.0 [facility] Comment on above: Performed By: #### C BC ####[facility] Gpiozxrnu[address] [place] [phone]. Silvino Clifton Platelet mean volume (Bld) [Entitic vol] 10.7 fL Normal 9.5-13.5 [facility] Comment on above: Performed By: #### C BC ####[facility] Hoy[address]mtmt[address] [place] [phone]. Silvino Clifton PLT 182 103/ul Normal 150-450 [facility] Comment on above: Performed By: #### C BC ####[facility] Srnd[address]udtij[address] [place] [phone]. Silvino Clifton RBC 4.38 106/ul Normal 4.20-5.40 [facility] Comment on above: Performed By: #### C BC ####[facility] [address] [place] [phone]. Silvino Clifton WBC 8.0 103/ul Normal 4.0-11.0 [facility] Comment on above: Performed By: #### C BC ####[facility] Z[address]kw[address] [place] [phone]. Silvino Clifton CT HEAD WO CONon 11-12-2021 [...] RAYNE JOHNSON Date: 2021-11-12 05:04 Normal [facility] ER URINE PROFILEon 2 Bilirubin Ql (U) Negative Normal NEGATIVE [facility] Comment on above: Performed By: #### U MICRO, ERUR #### [facility] [address] [place] [address] Dr. Silvino Clifton Clarity (U) CLEAR Normal CLEAR [facility] Comment on above: Performed By: #### U MICRO, ERUR #### [facility] [address] [place] [address] Dr. Silvino Clifton Color (U) LT. YELLOW Normal YELLOW [facility] Comment on above: Performed By: #### U MICRO, ERUR #### [facility] [address] [place] [address] Dr. Silvino Clifton ERUAHD A micrscopic examina tion will be performed if indicated. Normal [facility] Comment on above: Performed By: #### U MICRO, ERUR #### [facility] [address] [place] [address] Dr. Silvino Clifton Glucose Ql (U) Negative Normal NEGATIVE [facility] Comment on above: Performed By: #### U MICRO, ERUR #### [facility] [address] [place] [address] Dr. Silvino Clifton Hemoglobin Ql (U) SMALL Abnormal NEGATIVE [facility] Comment on above: Performed By: #### U MICRO, ERUR #### [facility] [address] [place] [address] Dr. Silvino Clifton Ketones Ql (U) Negative Normal NEGATIVE [facility] Comment on above: Performed By: #### U MICRO, ERUR #### [facility] [address] [place] [address] Dr. Silvino Clifton LEUKOCYTES Negative Normal NEGATIVE [facility] Comment on above: Performed By: #### U MICRO, ERUR #### [facility] [address] [place] [address] [address] Silvino Clifton Nitrite Ql (U) Negative Normal NEGATIVE [facility] Comment on above: Performed By: #### U MICRO, ERUR #### [facility] [address] [place] [address] [address] Silvino Clifton pH (U) 7.0 [pH] Normal 5-9 [facility] Comment on above: Performed By: #### U MICRO, ERUR #### [facility] [address] [place] [address] Dr. Silvino Clifton SPEC GRAVITY <=1.005 Abnormal 1.005-<=1.0 25 [facility] Comment on above: Performed By: #### U MICRO, ERUR #### [facility] [address] [place] [address] [address] Silvino Clifton UA PROTEIN Negative Normal NEGATIVE/ TRACE [facility] Comment on above: Performed By: #### U MICRO, ERUR #### [facility] [address] [place] [address] Dr. Silvino Clifton UR MICRO IND INDICATED Normal [facility] Comment on above: Performed By: #### U MICRO, ERUR #### [facility] [address] [place] [address] [address] Silvino Clifton Urobilinogen Qn (U) 0.2 {Tyrell'U}/dL Normal 0.2 - 1. 0 [facility] Comment on above: Performed By: #### U MICRO, ERUR #### [facility] [address] [place] [address] Dr. Silvino Clifton PROF 14(COMP METB)on 022 Albumin [Mass/Vol] 4.2 g/dL Normal 3.4-5.0 [facility] Comment on above: Performed By: #### C MP, HSTROPN ####[facility] [address] [place] [address]Dr. Suzyoriana Clifton Albumin/Globulin [Mass ratio] 1.2 {ratio} Normal [facility] Comment on above: Performed By: #### C MP, HSTROPN ####[facility] [address] [place] [address]Dr. Suzyoriana Clifton ALP [Catalytic activity/Vol] 65 U/L Normal 46-116 [facility] Comment on above: Performed By: #### C MAGGIE, HSTROPN ####[facility] R[address] [place] [address]Dr. Silvino Clifton ALT [Catalytic activity/Vol] 21 U/L Normal 14-59 [facility] Comment on above: Performed By: #### C MAGGIE, HSTROPN ####[facility] [address] [place], [place] [address]Dr. Silvino Clifton Anion gap [Moles/Vol] 12.5 mmol/L Normal [facility] Comment on above: Performed By: #### C MAGGIE, HSTROPN ####[facility] [address] [place], [place] [address]Dr. Suzyoriana Clifton AST [Catalytic activity/Vol] 17 U/L Normal 15-37 [facility] Comment on above: Performed By: #### C MP, HSTROPN ####[facility] [address] [place], [place] [address]Dr. Silvino Clifton Bilirubin [Mass/Vol] 0.5 mg/dL Normal 0.2-1.0 [facility] Comment on above: Performed By: #### C MP, HSTROPN ####[facility] [address] [place], [place] [address]Dr. Silvino Clifton Calcium [Mass/Vol] 9.0 mg/dL Normal 8.5-10.1 [facility] Comment on above: Performed By: #### C MP, HSTROPN ####[facility] [address] [place], [place] [address]Dr. Silvino Clifton Chloride [Moles/Vol] 100 mmol/L Normal 98-107 [facility] Comment on above: Performed By: #### C MAGGIE, HSTROPN ####[facility] [address] [place] [address]Dr. Silvino Clifton CO2 [Moles/Vol] 26.8 mmol/L Normal 21.0-32.0 [facility] Comment on above: Performed By: #### C MAGGIE, HSTROPN ####[facility] [address] [place] [address]Dr. Silvino Clifton Creatinine [Mass/Vol] 0.71 mg/dL Normal 0.55-1.02 [facility] Comment on above: Performed By: #### C MAGGIE, HSTROPN ####[facility] [address] [place], [place] [address]Dr. Silvino Clifton EGFR-AF TAIWANESE >60 Normal >=60 [facility] Comment on above: Performed By: #### C MAGGIE, HSTROPN ####[facility] [address] [place], [place] [address]Dr. Silvino Clifton EGFR-NON AF TAIWANESE >60 Normal >=60 [facility] Comment on above: Performed By: #### C MAGGIE, HSTROPN ####[facility] [address] [place], [place] [address]Dr. Silvino Clifton Globulin (S) [Mass/Vol] 3.4 g/dL Normal [facility] Comment on above: Performed By: #### C MAGGIE, HSTROPN ####[facility] [address]htt[address] [place] [address]Dr. Silvino Clifton Glucose [Mass/Vol] 185 mg/dL Critically high 74-106 T [facility] Comment on above: Performed By: #### C MAGGIE, HSTROPN ####[facility] [address] [place], [place] [address]Dr. Suzyoriana Clifton Potassium [Moles/Vol] 3.3 mmol/L Critically low 3.5-5.1 [facility] Comment on above: Performed By: #### C MAGGIE, HSTROPN ####[facility] [address] [place] [phone]. Silvino Clifton Protein [Mass/Vol] 7.6 g/dL Normal 6.4-8.2 [facility] Comment on above: Performed By: #### C MP, HSTROPN ####[facility] [address] [place] [phone]. Silvino Clifton Sodium [Moles/Vol] 136 mmol/L Normal 136-145 [facility] Comment on above: Performed By: #### C MP, HSTROPN ####[facility] [address] [place] [phone]. Silvino Clifton Urea nitrogen [Mass/Vol] 10.0 mg/dL Normal 7.0-18.0 [facility] Comment on above: Performed By: #### C MP, HSTROPN ####[facility] [address] [place] [address]Dr. Silvino Clifton Urea nitrogen/Creatinine [Mass ratio] 14.1 mg/mg Normal [facility] Comment on above: Performed By: #### C MP, HSTROPN ####[facility] [address] [place] [address]Dr. Silvino Clifton TROPONIN, HIGH SENSITIVITYon 11-12-2021 HSTROP 25.0 pg/mL Normal 4.0-51.3 [facility] Comment on above: Result Comment: CUT- OFF POINTS HAVE BEEN ESTABLISHED BASED ON THE FOURTH UNIVERSAL DEFINITIONS OF MYOCARDIAL INFARCTION. THE UPPER REFERENCE LIMIT (URL) OF TROPONIN, DEFINED THE 99TH PERCENTILE OF cTnI DISTRIBUTION IN A REFERENCE POPULATION, HAS BEEN CONFIRMED THE DECISION THRESHOLD FOR MS DIAGNOSIS. Performed By: #### C MP, HSTROPN #### [facility] [address] [place] [address] [address] Silvino Clifton URINE MICROSCOPIC ONLYon BACTERIA NONE SEEN Normal NONE SEEN [facility] Comment on above: Performed By: #### U MICRO, ERUR #### [facility] [address] [place] [address] [address] Silvino Clifton Bacteria identified Cx Nom (U) NOT INDICATED Normal [facility] Comment on above: Performed By: #### U MICRO, ERUR #### [facility] [address] [place] [address] Dr. Silvino Clifton CAST NONE SEEN Normal NONE SEEN [facility] Comment on above: Performed By: #### U MICRO, ERUR #### [facility] [address] [place] [address] Dr. Silvino Clifton Crystals LM Nom (Urine sed) NONE SEEN Normal NONE SEEN [facility] Comment on above: Performed By: #### U MICRO, ERUR #### [facility] [address] [place] [address] Dr. Silvino Clifton Epithelial cells LM Ql (Urine sed) RARE Normal NONE SEEN /RARE [facility] Comment on above: Performed By: #### U MICRO, ERUR #### [facility] [address] [place] [address] Dr. Silvino Clifton MUCOUS NONE SEEN Normal NONE SEEN [facility] Comment on above: Performed By: #### U MICRO, ERUR #### [facility] [address] [place] [address] Dr. Silvino Clifton RBC 2-5 Abnormal 0-2 [facility] Comment on above: Performed By: #### U MICRO, ERUR #### [facility] [address] [place] [address] Dr. Silvino Clifton WBC NONE SEEN Normal NONE SEEN [facility] Comment on above: Performed By: #### U MICRO, ERUR #### [facility] [address] [place] [address] Dr. Silvino Clifton CBC (INCLUDES DIFF/PLT)on Basophils (Bld) [#/Vol] 0.041 10*3/uL Normal 0-200 [facility] Comment on above: Performed By: #### 6 623, 210, 543 #### [facility] [address], [address] [place] [address] Child And Youth Program Assistant: Scott Nichols MD Basophils/100 WBC (Bld) 0.7 % Normal [facility] Comment on above: Performed By: #### 6 399, 622, 927 #### [facility] [address] [place] [address] Child And Youth Program Assistant: Scott Nichols MD Eosinophils (Bld) [#/Vol] 0.077 10*3/uL Normal 15-500 [facility] Comment on above: Performed By: #### 6 399, 622, 927 #### [facility] of [place] [address] [facility] Program Assistant: Scott Nichols MD Eosinophils/100 WBC (Bld) 1.3 % Normal [facility] Comment on above: Performed By: #### 6 399, 622, 927 #### [facility] [place] [address] [facility] Assistant: Scott Nichols MD Erythrocyte distribution width (RBC) [Ratio] 12.3 % Normal 11.0-15.0 [facility] Comment on above: Performed By: #### 6 399, 622, 927 #### [facility] [place] [address] [facility] Assistant: Scott Nichols MD Hematocrit (Bld) [Volume fraction] 40.2 % Normal 35.0-45.0 [facility] Comment on above: Performed By: #### 6 399, 622, 927 #### [facility] [place] [address] [facility] Assistant: Scott Nichols MD Hemoglobin (Bld) [Mass/Vol] 13.8 g/dL Normal 11.7-15.5 [facility] Comment on above: Performed By: #### 6 399, 622, 927 #### [facility] [place] [address] [facility] Assistant: Scott Nichols MD Lymphocytes (Bld) [#/Vol] 1.682 10*3/uL Normal 850-3900 [facility] Comment on above: Performed By: #### 6 399, 622, 927 #### [facility] of [address] [address] [facility] Assistant: Scott Nichols MD Lymphocytes/100 WBC (Bld) 28.5 % Normal [facility] Comment on above: Performed By: #### 6 399, 622, 927 #### [facility] [place] [address] [facility] Assistant: Scott Nichols MD MCH (RBC) [Entitic mass] 29.9 pg Normal 27.0-33.0 [facility] Comment on above: Performed By: #### 6 399, 622, 927 #### [facility] [place] [address] [facility] Assistant: Scott Nichols MD MCHC (RBC) [Mass/Vol] 34.3 g/dL Normal 32.0-36.0 [facility] Comment on above: Performed By: #### 6 399, 622, 927 #### [facility] [place] [address] [facility] Assistant: Scott Nichols MD MCV (RBC) [Entitic vol] 87.0 fL Normal 80.0-100.0 [facility] Comment on above: Performed By: #### 6 399, 622, 927 #### [facility] [place] [address] [facility] Assistant: Scott Nichols MD Monocytes (Bld) [#/Vol] 0.407 10*3/uL Normal 200-950 [facility] Comment on above: Performed By: #### 6 399, 622, 927 #### [facility] [place] [address] [facility] Assistant: Scott Nichols MD Monocytes/100 WBC (Bld) 6.9 % Normal [facility] Comment on above: Performed By: #### 6 399, 622, 927 #### [facility] [place] [address] [facility] Assistant: Scott Nichols MD Neutrophils (Bld) [#/Vol] 3.693 10*3/uL Normal 5054-0458 [facility] Comment on above: Performed By: #### 6 399, 622, 927 #### [facility] [place] [address] [facility] Assistant: Scott Nichols MD Neutrophils/100 WBC (Bld) 62.6 % Normal [facility] Comment on above: Performed By: #### 6 399, 622, 927 #### [facility] [place] [address] [facility] Assistant: Scott Nichols MD Platelet mean volume (Bld) [Entitic vol] 11.9 fL Normal 7.5-12.5 [facility] Comment on above: Performed By: #### 6 399, 622, 927 #### [facility] [place] [address] [facility] Assistant: Scott Nichols MD Platelets (Bld) [#/Vol] 195 10*3/uL Normal 140-400 [facility] Comment on above: Performed By: #### 6 399, 622, 927 #### [facility] [place] [address] [facility] Assistant: Scott Nichols MD RBC (Bld) [#/Vol] 4.62 10*6/uL Normal 3.80-5.10 [facility] Comment on above: Performed By: #### 6 399, 622, 927 #### [facility] [place] [address] [facility] Assistant: Scott Nichols MD WBC (Bld) [#/Vol] 5.9 10*3/uL Normal 3.8-10.8 [facility] Comment on above: Performed By: #### 6 399, 622, 927 #### [facility] [place] [address] [facility] Assistant: Scott Nichols MD MAGNESIUMon 09-10-2021 Magnesium [Mass/Vol] 1.7 mg/dL Normal 1.5-2.5 [facility] Comment on above: Order Comment: FASTI NG:UNKNOWN FASTING: UNKNOWN Performed By: #### 6 399, 622, 927 #### [facility] [place] [address] [facility] Assistant: Scott Nichols MD VITAMIN B12on 09-10-2021 Cobalamin [...] 6 399, 622, 927 #### [facility] [place] [address] [facility] Assistant: Scott Nichols MD ALBUMIN, RANDOM URINE W/CREA TININEon 07-29-2021 ALBUMIN, URINE 2.6 mg/dL Normal See Note: [facility] Comment on above: Result Comment: Refe rence Range: Reference Range Not established Performed By: #### 1 0231, 7600, 4674 #### [facility] [place] [address] [facility] Assistant: Scott Nichols MD ALBUMIN/CREATININE RATIO, RANDOM URINE [...] category. Performed By: #### 1 0231, 7600, 0852 #### [facility] [place] [address] [facility] Assistant: Scott Nichols MD Creatinine (U) [Mass/Vol] 53 mg/dL Normal 20-275 [facility] Comment on above: Performed By: #### 1 0231, 7600, 6517 #### [facility] of [address], [address] [place] [address] [facility] Assistant: Scott Nichols MD COMPREHENSIVE METABOLIC PANE [facility] 07-29-2021 Albumin [Mass/Vol] 4.6 g/dL Normal 3.6-5.1 [facility] Comment on above: Performed By: #### 1 0231, 7600, 6517 #### [facility] of [address], [address] [place] [address] [facility] Assistant: Scott Nichols MD Albumin/Globulin [Mass ratio] 1.6 {ratio} Normal 1.0-2.5 [facility] Comment on above: Performed By: #### 1 0231, 7600, 6517 #### [facility] of [address], [address] [place] [address] [facility] Assistant: Scott Nichols MD ALP [Catalytic activity/Vol] 55 U/L Normal 37-153 [facility] Comment on above: Performed By: #### 1 0231, 0, 6517 #### [facility] [address], [address] [place] [address] [facility] Assistant: Scott Nichols MD ALT [Catalytic activity/Vol] 11 U/L Normal 6-29 [facility] Comment on above: Result Comment: NO C OLLECTION DATE RECEIVED. WE HAVE USED THE DATE THE SPECIMEN WAS RECEIVED BY THIS LABORATORY THE COLLECTION DATE. IF THIS IS INCORRECT, PLEASE CONTACT CLIENT SERVICES. PHONE NUMBER: [phone] Performed By: #### 1 0231, 0, 6517 #### [facility] of [address], [address] [place] [address] [facility] Assistant: Scott Nichols MD AST [Catalytic activity/Vol] 11 U/L Normal 10-35 [facility] Comment on above: Performed By: #### 1 0231, 7600, 6517 #### [facility] of [address], [address] [place] [address] [facility] Assistant: Scott Nichols MD Bilirubin [Mass/Vol] 0.6 mg/dL Normal 0.2-1.2 [facility] Comment on above: Performed By: #### 1 230, 7599, 6517 #### [facility] [place] [address] [facility] Assistant: Scott Nichols MD BUN/CREATININE RATIO NOT APPLICABLE Normal 6-22 [facility] Comment on above: Performed By: #### 1 230, 7599, 6516 #### [facility] [place] [address] [facility] Assistant: Scott Nichols MD Calcium [Mass/Vol] 9.5 mg/dL Normal 8.6-10.4 [facility] Comment on above: Performed By: #### 1 230, 7599, 6517 #### [facility] [place] [address] [facility] Assistant: Scott Nichols MD Chloride [Moles/Vol] 105 mmol/L Normal 98-110 [facility] Comment on above: Performed By: #### 1 230, 7599, 17 #### [facility] [place] [address] [facility] Assistant: Scott Nichols MD CO2 [Moles/Vol] 30 mmol/L Normal 20-32 [facility] Comment on above: Performed By: #### 1 230, 7599, 6517 #### [facility] [place] [address] [facility] Assistant: Scott Nichols MD Creatinine [Mass/Vol] 0.62 mg/dL Normal 0.60-0.93 [facility] Comment on above: Result Comment: For patients >49 years of age, the reference limit for Creatinine is approximately 13% higher for people identified as -Sudanese. Performed By: #### 1 230, 7599, 6517 #### [facility] [place] [address] [facility] Assistant: Scott Nichols MD eGFR NON-AFR. TAIWANESE 91 mL/min/1.73m2 Normal > OR = 60 [facility] Comment on above: Performed By: #### 1 230, 7599, 6517 #### [facility] [place] [address] [facility] Assistant: Scott Nichols MD GFR/1.73 sq M.predicted among blacks MDRD (S/P/Bld) [Vol rate/Area] 106 mL/min/{1.73_m2} Normal > OR = 60 [facility] Comment on above: Performed By: #### 1 230, 7599, 6516 #### [facility] [place] [address] [facility] Assistant: Scott Nichols MD Globulin (S) [Mass/Vol] 2.8 g/dL Normal 1.9-3.7 [facility] Comment on above: Performed By: #### 1 230, 7599, 6516 #### [facility] [place] [address] [facility] Assistant: Scott Nichols MD Glucose [Mass/Vol] 124 mg/dL High 65-99 [facility] Comment on above: Result Comment: Fasting reference interval For someone without known diabetes, a glucose value between 100 and 125 mg/dL is consistent with prediabetes and should be confirmed with a follow-up test. Performed By: #### 1 230, 7599, 6516 #### [facility] [place] [address] [facility] Assistant: Scott Nichols MD Potassium [Moles/Vol] 3.7 mmol/L Normal 3.5-5.3 [facility] Comment on above: Performed By: #### 1 230, 7599, 6517 #### [facility] [place] [address] [facility] Assistant: Scott Nichols MD Protein [Mass/Vol] 7.4 g/dL Normal 6.1-8.1 [facility] Comment on above: Performed By: #### 1 230, 7599, 6517 #### [facility] of [address], [address] [place] [address] [facility] Assistant: Scott Nichols MD Sodium [Moles/Vol] 142 mmol/L Normal 135-146 [facility] Comment on above: Performed By: #### 1 0231, 0, 6517 #### [facility] [address], [address] [place] [address] [facility] Assistant: Scott Nichols MD Urea nitrogen [Mass/Vol] 8 mg/dL Normal 7-25 [facility] Comment on above: Performed By: #### 1 0231, 7599, 6517 #### [facility] [place] [address] [facility] Assistant: Scott Nichols MD LIPID PANEL, [facility] 03-0 Cholesterol [Mass/Vol] 156 mg/dL Normal <200 [facility] Comment on above: Performed By: #### 1 0231, 7599, 6517 #### [facility] of [address], [address] [place] [address] [facility] Assistant: Scott Nichols MD Cholesterol in HDL [Mass/Vol] 67 mg/dL Normal > OR = 50 [facility] Comment on above: Performed By: #### 1 023, 7599, 6517 #### [facility] [place] [address] [facility] Assistant: Scott Nichols MD Cholesterol in LDL [Mass/Vol] [...] LDL-C. Placido VENTURA et al. MACKENZIE. 2013;310(19): 3690-3243 (http://education.[employer].TrustHop/faq/VBJ498) Performed By: #### 1 0231, 7599, 6517 #### [facility] [place] [address] [facility] Assistant: Scott Nichols MD Cholesterol.total/Ch olesterol in HDL [Mass ratio] 2.3 {ratio} Normal <5.0 [facility] Comment on above: Performed By: #### 1 230, 7599, 6517 #### [facility] [place] [address] [facility] Assistant: Scott Nichols MD NON HDL CHOLESTEROL 89 mg/dL (calc) Normal <130 [facility] Comment on above: Result Comment: For patients with diabetes plus 1 major ASCVD risk factor, treating to a non-HDL-C goal of <100 mg/dL (LDL-C of <70 mg/dL) is considered a therapeutic option. Performed By: #### 1 230, 7599, 17 #### [facility] [place] [address] [facility] Assistant: Scott Nichols MD Triglyceride [Mass/Vol] 85 mg/dL Normal <150 [facility] Comment on above: Performed By: #### 1 230, 7599, 6517 #### [facility] [place] [address] [facility] Assistant: Scott Nichols MD REFLEXIVE URINE CULTUREon REFLEXIVE URINE CULTURE Normal [facility] Comment on above: Result Comment: NO C ULTURE INDICATED Performed By: #### 3 020 #### [facility] [place] [address] [facility] Assistant: Scott Nichols MD URINALYSIS, COMPLETE W/REFLE X TO CULTUREon 02-06-2021 Appearance (U) CLEAR Normal CLEAR [facility] Comment on above: Performed By: #### 3 020 #### [facility] [place] [address] [facility] Assistant: Scott Nichols MD BACTERIA NONE SEEN Normal NONE SEEN [facility] Comment on above: Performed By: #### 3 020 #### [facility] [place] [address] [place] [address] [facility] Assistant: Scott Nichols MD Bilirubin Ql (U) Negative Normal NEGATIVE [facility] Comment on above: Performed By: #### 3 020 #### [facility] [place] [address] [facility] Assistant: Scott Nichols MD Color (U) YELLOW Normal YELLOW [facility] Comment on above: Performed By: #### 3 020 #### [facility] [place] [address] [facility] Assistant: Scott Nichols MD Glucose Ql (U) Negative Normal NEGATIVE [facility] Comment on above: Performed By: #### 3 020 #### [facility] [place] [address] [facility] Assistant: Scott Nichols MD HYALINE CAST NONE SEEN Normal NONE SEEN [facility] Comment on above: Performed By: #### 3 020 #### [facility] [place] [address] [facility] Assistant: Scott Nichols MD Ketones Ql (U) Negative Normal NEGATIVE [facility] Comment on above: Performed By: #### 3 020 #### [facility] [place] [address] [facility] Assistant: Scott Nichols MD Leukocyte esterase Test strip Ql (U) Negative Normal NEGATIVE [facility] Comment on above: Performed By: #### 3 020 #### [facility] [place] [address] [facility] Assistant: Scott Nichols MD Nitrite Ql (U) Negative Normal NEGATIVE [facility] Comment on above: Performed By: #### 3 020 #### [facility] [place] [address] [facility] Assistant: Scott Nichols MD OCCULT BLOOD TRACE Abnormal NEGATIVE [facility] Comment on above: Performed By: #### 3 020 #### [facility] of [address] [place] [address] [facility] Assistant: Scott Nichols MD pH (U) 6.5 [pH] Normal 5.0-8.0 [facility] Comment on above: Performed By: #### 3 020 #### [facility] [place] [address] [facility] Assistant: Scott Nichols MD Protein Ql (U) Negative Normal NEGATIVE [facility] Comment on above: Performed By: #### 3 020 #### [facility] [place] [address] [facility] Assistant: Scott Nichols MD RBC NONE SEEN Normal < OR = 2 [facility] Comment on above: Performed By: #### 3 020 #### [facility] [place] [address] [facility] Assistant: Scott Nichols MD Specific gravity (U) [Rel density] 1.008 Normal 1.001-1.035 [facility] Comment on above: Performed By: #### 3 020 #### [facility] [place] [address] [facility] Assistant: Scott Nichols MD SQUAMOUS EPITHELIAL CELLS NONE SEEN Normal < OR = 5 [facility] Comment on above: Performed By: #### 3 020 #### [facility] [place] [address] [facility] Assistant: Scott Nichols MD WBC NONE SEEN Normal < OR = 5 [facility] Comment on above: Performed By: #### 3 020 #### [facility] [place] [address] [facility] Assistant: Scott Nichols MD BASIC METABOLIC PANEL 12-23 BUN/CREATININE RATIO NOT APPLICABLE Normal 6-22 [facility] Comment on above: Order Comment: FASTI NG:YESFASTING: YES Performed By: #### 3 020 #### [facility] [place] [address] [facility] Assistant: Scott Nichols MD Calcium [Mass/Vol] 9.6 mg/dL Normal 8.6-10.4 [facility] Comment on above: Order Comment: FASTI NG:YESFASTING: YES Performed By: #### 3 020 #### [facility] [place] [address] [facility] Assistant: Scott Nichols MD Chloride [Moles/Vol] 106 mmol/L Normal 98-110 [facility] Comment on above: Order Comment: FASTI NG:YESFASTING: YES Performed By: #### 3 020 #### [facility] [place] [address] [facility] Assistant: Scott Nichols MD CO2 [Moles/Vol] 29 mmol/L Normal 20-32 [facility] Comment on above: Order Comment: FASTI NG:YESFASTING: YES Performed By: #### 3 020 #### [facility] [place] [address] [facility] Assistant: Scott Nichols MD Creatinine [Mass/Vol] 0.69 mg/dL Normal 0.50-0.99 [facility] Comment on above: Order Comment: FASTI NG:YESFASTING: YES Result Comment: For patients >49 years of age, the reference limit for Creatinine is approximately 13% higher for people identified as -Sudanese. Performed By: #### 3 020 #### [facility] [place] [address] [facility] Assistant: Scott Nichols MD eGFR NON-AFR. TAIWANESE 89 mL/min/1.73m2 Normal > OR = 60 [facility] Comment on above: Order Comment: FASTI NG:YESFASTING: YES Performed By: #### 3 020 #### [facility] [place] [address] [facility] Assistant: Scott Nichols MD GFR/1.73 sq M.predicted among blacks MDRD (S/P/Bld) [Vol rate/Area] 103 mL/min/{1.73_m2} Normal > OR = 60 [facility] Comment on above: Order Comment: FASTI NG:YESFASTING: YES Performed By: #### 3 020 #### [facility] [place] [address] [facility] Assistant: Scott Nichols MD Glucose [Mass/Vol] 139 mg/dL High 65-99 [facility] Comment on above: Order Comment: FASTI NG:YESFASTING: YES Result Comment: Fasting reference interval For someone without known diabetes, a glucose value >125 mg/dL indicates that they may have diabetes and this should be confirmed with a follow-up test. Performed By: #### 3 020 #### [facility] [place] [address] [facility] Assistant: Scott Nichols MD Potassium [Moles/Vol] 3.9 mmol/L Normal 3.5-5.3 [facility] Comment on above: Order Comment: FASTI NG:YESFASTING: YES Performed By: #### 3 020 #### [facility] [place] [address] [facility] Assistant: Scott Nichols MD Sodium [Moles/Vol] 140 mmol/L Normal 135-146 [facility] Comment on above: Order Comment: FASTI NG:YESFASTING: YES Performed By: #### 3 020 #### [facility] [place] [address] [facility] Assistant: Scott Nichols MD Urea nitrogen [Mass/Vol] 11 mg/dL Normal 7-25 [facility] Comment on above: Order Comment: FASTI NG:YESFASTING: YES Performed By: #### 3 020 #### [facility] [place] [address] [facility] Assistant: Scott Nichols MD Vital Signs Date Time Vital Sign Value Performing Clinician Facility 06-09-2023 09:30-0500 Body height 151.13 cm Elisha Carrasquillo Other [facility] Other 06-09-2023 09:30-0500 Body mass index (BMI) [Ratio] 25.62 kg/m2 Elisha Carrasquillo Other [facility] Other 06-09-2023 09:30-0500 Body weight 58.51 kg Elisha Carrasquillo Other [facility] Other 06-09-2023 09:30-0500 Diastolic blood pressure 76 mm[Hg] Elisha Carrasquillo Other [facility] Other 06-09-2023 09:30-0500 Systolic blood pressure 122 mm[Hg] Elisha Carrasquillo Other [facility] Other 04-13-2023 13:45-0500 Body height 151.13 cm Elisha Carrasquillo Other [facility] Other 04-13-2023 13:45-0500 Body mass index (BMI) [Ratio] 25.7 kg/m2 Elisha Carrasquillo Other [facility] Other 04-13-2023 13:45-0500 Body weight 58.7 kg Elisha Carrasquillo Other [facility] Other 04-13-2023 13:45-0500 Diastolic blood pressure 70 mm[Hg] Elisha Carrasquillo Other [facility] Other 04-13-2023 13:45-0500 SaO2% (BldA) [Mass fraction] 97 % Elisha Carrasquillo Other [facility] Other 04-13-2023 13:45-0500 Systolic blood pressure 108 mm[Hg] Elisha Carrasquillo Other [facility] Other 02-16-2023 13:30-0400 Body height 151.13 cm Elisha Carrasquillo Other [facility] Other 02-16-2023 13:30-0400 Body mass index (BMI) [Ratio] 26.01 kg/m2 Elisha Carrasquillo Other [facility] Other 02-16-2023 13:30-0400 Body weight 59.42 kg Elisha Carrasquillo Other [facility] Other 02-16-2023 13:30-0400 Diastolic blood pressure 80 mm[Hg] Elisha Carrasquillo Other [facility] Other 02-16-2023 13:30-0400 SaO2% (BldA) [Mass fraction] 97 % Elisha Carrasquillo Other [facility] Other 02-16-2023 13:30-0400 Systolic blood pressure 122 mm[Hg] Elisha Carrasquillo Other [facility] Other 02-04-2023 14:00-0400 Body height 151.13 cm Elisha Carrasquillo Other [facility] Other 02-04-2023 14:00-0400 Body mass index (BMI) [Ratio] 26.29 kg/m2 Elisha Carrasquillo Other [facility] Other 02-04-2023 14:00-0400 Body weight 60.06 kg Elisha Carrasquillo Other [facility] Other 02-04-2023 14:00-0400 Diastolic blood pressure 77 mm[Hg] Elisha Carrasquillo Other [facility] Other 02-04-2023 14:00-0400 Systolic blood pressure 146 mm[Hg] Elisha Carrasquillo Other [facility] Other 01-28-2023 09:45-0400 Body height 151.13 cm Elisha Carrasquillo Other [facility] Other 01-28-2023 09:45-0400 Body mass index (BMI) [Ratio] 26.29 kg/m2 Elisha Carrasquillo Other [facility] Other 01-28-2023 09:45-0400 Body weight 60.06 kg Elisha Carrasquillo Other [facility] Other 01-28-2023 09:45-0400 Diastolic blood pressure 79 mm[Hg] Elisha Carrasquillo Other [facility] Other 01-28-2023 09:45-0400 Systolic blood pressure 126 mm[Hg] Elisha Carrasquillo Other [facility] Other 09-08-2022 15:00-0400 Body height 151.13 cm Elisha Carrasquillo Other [facility] Other 09-08-2022 15:00-0400 Body mass index (BMI) [Ratio] 26.61 kg/m2 Elisha Carrasquillo Other [facility] Other 09-08-2022 15:00-0400 Body weight 60.78 kg Elisha Carrasquillo Other [facility] Other 09-08-2022 15:00-0400 Diastolic blood pressure 78 mm[Hg] Elisha Carrasquillo Other [facility] Other 09-08-2022 15:00-0400 SaO2% (BldA) [Mass fraction] 97 % Elisha Carrasquillo Other [facility] Other 09-08-2022 15:00-0400 Systolic blood pressure 118 mm[Hg] Elisha Carrasquillo Other [facility] Other 08-27-2022 14:30-0400 Body height 151.13 cm Elisha Carrasquillo Other [facility] Other 08-27-2022 14:30-0400 Body mass index (BMI) [Ratio] 26.41 kg/m2 Elisha Carrasquillo Other [facility] Other 08-27-2022 14:30-0400 Body weight 60.33 kg Elisha Carrasquillo Other [facility] Other 08-27-2022 14:30-0400 Diastolic blood pressure 74 mm[Hg] Elisha Carrasquillo Other [facility] Other 08-27-2022 14:30-0400 SaO2% (BldA) [Mass fraction] 95 % Elisha Carrasquillo Other [facility] Other 08-27-2022 14:30-0400 Systolic blood pressure 120 mm[Hg] Elisha Carrasquillo Other [facility] Other 08-10-2022 14:30-0400 Body height 151.13 cm Elisha Carrasquillo Other [facility] Other 08-10-2022 14:30-0400 Body mass index (BMI) [Ratio] 26.81 kg/m2 Elisha Carrasquillo Other [facility] Other 08-10-2022 14:30-0400 Body weight 61.24 kg Elisha Carrasquillo Other [facility] Other 08-10-2022 14:30-0400 Diastolic blood pressure 74 mm[Hg] Elisha Carrasquillo Other [facility] Other 03-20-2023 14:30-0400 SaO2% (BldA) [Mass fraction] 97 % Elisha Carrasquillo Other [facility] Other 08-10-2022 14:30-0400 Systolic blood pressure 126 mm[Hg] Elisha Carrasquillo Other [facility] Other 11-26-2021 08:12-0400 Blood Pressure Location Norma Lue [facility] 11-26-2021 08:12-0400 Diastolic blood pressure 82 mm[Hg] Norma Lue [facility] 11-26-2021 08:12-0400 Heart rate 66 /min [facility] 11-26-2021 08:12-0400 Systolic blood pressure 139 mm[Hg] Norma Lue [facility] Encounters Encounter Date Encounter Type Care Provider Facility Start: 06-10-2023 End: 06-10-2023 ambulatory Elisha Carrasquillo Other [facility] Other Start: 06-10-2023 Telephone encounter Elisha Carrasquillo [facility] Start: 06-09-2023 End: 06-09-2023 ambulatory Elisha Carrasquillo Other [facility] Other Start: 06-09-2023 Office outpatient visit 25 minutes Elisha Carrasquillo [facility] Start: 06-07-2023 End: 06-07-2023 ambulatory Elisha Carrasquillo Other [facility] Other Start: 06-07-2023 Telephone encounter [place] [facility] Start: 06-01-2023 End: 06-01-2023 ambulatory Elisha Neida Other [facility] Other Start: 06-01-2023 Telephone encounter Elisha Carrasquillo [facility] Start: 05-31-2023 End: 06-01-2023 ambulatory Kenji De Guzman MD Facility: [facility] Start: 05-19-2023 End: 05-19-2023 ambulatory Elisha Carrasquillo Other [facility] Other Start: 05-19-2023 Telephone encounter Elisha Carrasquillo [facility] Start: 04-13-2023 End: 04-13-2023 ambulatory Elisha Carrasquillo Other [facility] Other Start: 04-13-2023 Office outpatient visit 15 minutes Elisha Carrasquillo [facility] Start: 03-11-2023 End: 03-11-2023 ambulatory Elisha Carrasquillo Other [facility] Other Start: 03-11-2023 Telephone encounter Elisha Carrasquillo [facility] Start: 03-10-2023 End: 03-10-2023 ambulatory Elisha Carrasquillo Other [facility] Other Start: 03-10-2023 Telephone encounter Elisha Carrasquillo [facility] Start: 03-01-2023 End: 03-01-2023 ambulatory Elisha Carrasquillo Other [facility] Other Start: 03-01-2023 Telephone encounter Elisha Carrasquillo [facility] Start: 02-22-2023 End: 02-22-2023 ambulatory Elisha Carrasquillo Other [facility] Other Start: 02-22-2023 Telephone encounter Elisha Carrasquillo [facility] Start: 02-16-2023 End: 02-16-2023 ambulatory Elisha Carrasquillo Other [facility] Other Start: 02-16-2023 Office outpatient visit 15 minutes Elisha Carrasquillo [facility] Start: 02-04-2023 End: 02-04-2023 ambulatory Elisha Carrasquillo Other [facility] Other Start: 02-04-2023 Office outpatient visit 15 minutes Elisha Carrasquillo [facility] Start: 02-02-2023 End: 02-02-2023 ambulatory Elisha Carrasquillo Other [facility] Other Start: 02-02-2023 Telephone encounter Elisha Carrasquillo [employer] Start: 01-28-2023 End: 01-28-2023 ambulatory Elisha Carrasquillo Other [facility] Other Start: 01-28-2023 Office outpatient visit 15 minutes Elisha Carrasquillo [facility] Start: 12-18-2022 End: 12-18-2022 ambulatory Elisha Carrasquillo Other [facility] Other Start: 12-18-2022 Telephone encounter Elisha Carrasquillo [facility] Start: 12-09-2022 End: 12-10-2022 ambulatory PA-C SADAF WESTON Facility:[facility] Start: 12-09-2022 End: 12-10-2022 ambulatory PA-C SADAF WESTON Facility:[facility] Start: 12-09-2022 End: 12-09-2022 Lab Drop off SADAF WESTON [facility] Start: 10-05-2022 End: 10-06-[address] ELISHA CARRASQUILLO Facility: Start: 09-23-2022 End: 09-23-2022 ambulatory Elisha Carrasquillo Other [facility] Other Start: 09-23-2022 Telephone encounter Elisha Carrasquillo [facility] Start: 09-22-2022 End: 09-23-[address] ELISHA CARRASQUILLO Facility:[facility] Start: 09-08-2022 End: 09-08-2022 ambulatory Elisha Carrasquillo Other [facility] Other Start: 09-08-2022 Office outpatient visit 15 minutes Elisha Carrasquillo [facility] Start: 08-27-2022 End: 08-27-2022 ambulatory Elisha Carrasquillo Other [facility] Other Start: 08-27-2022 Office outpatient visit 15 minutes Elisha Carrasquillo [facility] Start: 08-13-2022 End: 08-13-2022 ambulatory Elisha Carrasquillo Other [facility] Other Start: 08-13-2022 Telephone encounter Elisha Carrasquillo [facility] Start: 08-12-2022 End: 08-13-[address] ELISHA CARRASQUILLO Facility:[facility] Start: 08-11-2022 End: 08-12-[address] ELISHA CARRASQUILLO Facility:[facility] Start: 08-10-2022 End: 08-10-2022 ambulatory Elisha Carrasquillo Other [facility] Other Start: 08-10-2022 Office outpatient ne w 45 minutes Elisha Carrasquillo [facility] Start: 07-16-2022 End: 07-16-2022 ambulatory [facility]SA DIAB . Facility:[facility] Start: 03-09-2022 End: 03-09-[address] BRUCE WALLER Facility:[facility] Start: 01-27-2022 End: 01-27-[address] BRUCE WALLER Facility:[facility] Start: 11-26-2021 End: 11-26-2021 Lab Drop off Norma Pulido [facility] Start: 11-26-2021 End: 11-26-2021 Patient encounter procedure [facility] Start: 11-22-2021 End: 11-23-[address] BRUCE WALLER Facility: Start: 11-12-2021 End: 11-12-[address] BRUCE WALLER Facility: Procedures Date Procedure Procedure Detail Performing Clinician Start: 02-12-2023 Diabetic retinal eye exam Harshzachary Cummins STARS COORDINATOR Start: 07-23-2022 Adult depression scr eening assessment Bridget Cummins STARS COORDINATOR Start: 06-16-2021 Cystoscopy SADAF Chriss PRAJAPATI Colonoscopy Norma Lue Cystoscopy Norma Lue Hysterectomy Norma Lue Plan of Treatment Date Care Activity Detail Author Start: 02-13-2024 Glaucoma screening Diabetic Ophthalmology Exam [facility] Start: 02-09-2024 Adult BMI Screening Adult BMI Screening [facility] Start: 02-09-2024 Tobacco Screening Tobacco Screening [facility] Start: 12-15-2023 ambulatory Ambulatory Facility:[facility] Start: 07-24-2023 Depression Screening Depression Screening [facility] Start: 07-24-2023 Fall Risk Screening Fall Risk Screening [facility] Start: 01-22-2023 COVID-19 Vaccine ( season) COVID-19 Vaccine ( season) [facility] Start: 01-22-2023 Influenza vaccination Influenza Vaccine [facility] Start: 10-14-2021 DTaP,Tdap and Td Vaccines (2 - Td or Tdap) DTaP,Tdap and Td Vaccines (2 - Td or Tdap) [facility] Start: 2001 Administration of varicella zoster vaccine Zoster (Shingles) Vaccine (1 of 2) [facility] Start: 1969 Diabetic foot examination Diabetic Foot Exam [facility] Start: 1950 Medicare Annual Wellness Visit Medicare Annual Wellness Visit [facility] Immunizations Immunization Date Immunization Notes Care Provider Fa susanne 03-15-2022 Influenza Vaccine, Quadrivalent, Adjuvanted [facility] 03-15-2022 influenza virus vaccine, unspecified formulation [facility] 05-06-2021 Influenza, High-dose , Quadrivalent [facility] 02-22-2020 influenza, high dose seasonal, preservative-free [facility] 02-06-2020 influenza, high dose seasonal, preservative-free [facility] 08-02-2019 pneumococcal polysaccharide vaccine, 23 valent [facility] 07-31-2019 influenza, high dose seasonal, preservative-free [facility] 05-21-2018 influenza, high dose seasonal, preservative-free [facility] 11-11-2017 pneumococcal polysaccharide vaccine, 23 valent [facility] 07-20-2014 pneumococcal conjuga te vaccine, 13 valent [facility] 02-24-2013 influenza virus vaccine, unspecified formulation [facility] 10-15-2011 tetanus toxoid, redu wanda diphtheria toxoid, and acellular pertussis vaccine, adsorbed [facility] NEGATED: Highlighted row has not occurred!11-26-2021 SARS-CoV-2 mRNA (tozinameran 5y-11y) vaccine Norma Pulido [facility] Payers Date Payer Category Payer Private Health Insurance 2022 Medicare AETNA MEDICARE A ETNA MEDICARE PLAN (PPO) [id number] 2022-Present [phone] [address] [place] [address] [id number] 1958 Medicare [id number] 1958 Medicare [id number] 1958 Medicare [id number] 1950 Unknown [id number] [id number] 1950 Unknown [id number] 2.16.840.1.802496.3.579.2.5 1950 Unknown [id number] 2.16.840.1.163633.3.579.2.5 1951 Unknown [id number] 2.16.840.1.768499.3.579.2.5 1950 Unknown [id number] 2.16.840.1.339798.3.579.2.5 1951 Unknown [id number] 2.16.840.1.495351.3.579.2.5 1950 Unknown [id number] 2.16.840.1.896946.3.579.2.5 1950 Unknown [id number] 2.16.840.1.258488.3.579.2.5 93 1950 Unknown [id number] 2.16.840.1.298552.3.579.2.5 1950 Unknown [id number] 2.16.840.1.220047.3.579.2.7 1950 Unknown [id number] 2.16.840.1.860634.3.579.2.7 1950 Unknown [id number] 2.16.840.1.307319.3.579.2.7 1950 Unknown [id number] 2.16.840.1.361239.3.579.2.1 96 Social History Date Type Detail Facility Start: 06-04-2021 End: 04-13-2022 Tobacco smoking status Never smoked tobacco (finding) [facility] Start: 06-05-2020 End: 02-08-2023 Sex Assigned At Female [facility] Tobacco smoking status Never [facility] Start: 04-13-2022 Tobacco use and exposure Smokeless tobacco [facility]-user [facility] Start: 02-08-2023 Alcohol intake Ex-drinker (finding) [facility] Start: 06-05-2020 End: 02-08-2023 [address] of [facility] Start: 1950 Sex Assigned At Not on file P [employer] [facility] Functional Status Date Assessment Result Facility 11-26-2021 Functional Status N/A [facility] Clinical Notes 11-26-2021 to 06-09-2023 Note Date & Type Note Facility 06-09-2023 Evaluation note Encounter Date Diagnosis Assessment Notes May, Type 2 diabetes mellitus with hyperglycemia, without long-term current use of insulin (ICD-10 - E11.65) A1C increased - dose of metformin increased. Watch sweets, stay hydrated. May, Essential (primary) hypertension (ICD-10 - I10) BP stable today. DASH diet and good hydration May, Chronic fatigue (ICD-10 - R53.82) assess for iron deficiency and hypothyroidism [facility] Other 01-15-2024 Evaluation note* Encounter Date Diagnosis Assessment Notes Treatment Notes Treatment Clinical Notes May, Type 2 diabetes mellitus with hyperglycemia, without long-term current use of insulin (ICD-10 - E11.65) [facility] Other 01-15-2024 Miscellaneous Notes* Telephone Encounter - Bridget Cummins CMA - 06/07/2023 11:34 AM EST Called patient to reschedule [facility] encounter Note* Telephone Encounter - Bridget Cummins CMA - 06/07/2023 11:34 AM EST Called patient to reschedule appointment [employer] [id number] Evaluation note* Encounter Date Diagnosis Assessment Notes Treatment Notes Treatment Clinical Notes May, Essential (primary) hypertension (ICD-10 - I10) [facility] Other 11-21-2023 Evaluation note* Encounter Date Diagnosis Assessment Notes Treatment Notes Treatment Clinical Notes Mar, Lumbar back pain with radiculopathy affecting right lower extremity (ICD-10 - M54.16) Discussed holding atorvastatin to help with muscle pain. Pt agrees to referral to Pain Mgmt. Has had benign xrays of back and hip, per her report. [facility] Other 10-18-2023 Evaluation note* Encounter Date Diagnosis Assessment Notes Treatment Notes Treatment Clinical Notes Feb, Recurrent occipital headache (ICD-10 - R51.9) [facility] Other 10-09-2023 Evaluation note* Encounter Date Diagnosis Assessment Notes Treatment Notes Treatment Clinical Notes Feb, Essential (primary) hypertension (ICD-10 - I10) [facility] Other 09-26-2023 Evaluation note* Encounter Date Diagnosis [...] worsened since starting eliquis. Orders faxed to [facility]. [place] [email or web address] Other 09-14-2023 Evaluation note* Encounter Date Diagnosis Assessment Notes Treatment Notes Treatment Clinical Notes Jan, Acute deep vein thrombosis (DVT) of calf muscle vein of right lower extremity (ICD-10 - I82.461) Wrote out instructions and gave samples of eliquis. Has appt later this week w vascular in [place]. Pt expresses understanding of the seriousness of this problem and will follow up w vascular and attribute to their treatment plan for DVT. [facility] Other 09-07-2023 Evaluation note* Encounter Date Diagnosis Assessment Notes Treatment Notes Treatment Clinical Notes Jan, Cervical pain (neck) (ICD-10 - M54.2) Printed order for PT. continue NSAIDs and heat therapy. Suspect her headaches are due to cervical problems. Jan, Varicose veins of both lower extremities with pain (ICD-10 - I83.813) Pt agrees to referral to vascular surgery for her prominent painful varicose veins. [facility] Other 07-28-2023 Evaluation note* Encounter Date Diagnosis Assessment Notes Treatment Notes Treatment Clinical Notes Nov, Type 2 diabetes mellitus with hyperglycemia, without long-term current use of insulin (ICD-10 - E11.65) [facility] Other 05-03-2023 Evaluation note* Encounter Date Diagnosis Assessment Notes Treatment Notes Treatment Clinical Notes September, Abnormal mammogram of right breast (ICD-10 - R92.8) [facility] Other 04-18-2023 Evaluation note* Encounter Date Diagnosis Assessment Notes Treatment Notes Treatment Clinical Notes Aug, Vaginal yeast infection (ICD-10 - B37.31) Complete med and call if symptoms continue Aug, Screening mammogram for breast cancer (ICD-10 - Z12.31) [facility] Other 04-06-2023 Evaluation note* Encounter Date Diagnosis [...] - I10) Chronic problem - requests refill. [facility] Other 03-22-2023 NotePROCEDURE: XR HIP RT 2 3V W PELVIS HISTORY: Pain in right leg ; low back pain COMPARISON: None. FINDINGS: BONES:No fracture, acute abnormality, or significant arthropathy. SOFT TISSUES:No visible soft tissue swelling. EFFUSION:None visible. OTHER: Negative. IMPRESSION: 1. No acute bone abnormality or significant degenerative changes of the hip joints. Electronically authenticated by: CIPRIANO MENON Date: 2022-08-12 09:35[facility]03-20-2023 Evaluation note* Encounter Date Diagnosis Assessment Notes [...] levels and will check later this week [facility] Other 07-06-2022 Hospital Discharge instructions Patient Education [...] Follow these instructions at home: Medicines Take ftsr-lqr-hgkeztx and prescription medicines only as told by [...] or the blood stops without treatment. Take mkau-krs-ciohmdb and prescription medicines only as told by your health care provider. Drink enough fluid to keep your urine clear or pale yellow. This information is not intended to replace advice given to you by your health care provider. Make sure you discuss any questions you have with your health care provider. Document Released: 05/10/2006 Document Revised: 10/04/2019 Document Reviewed: 06/12/2017 [employer] Patient Education 2020 [employer]. Follow Up Care 11/18/2021 15:11:49 With:Ashok LAWTON, Norma Chambers, UR, URO Address: When:1 year Comments:Renal US [facility] evaluation + Plan note Future Appointments Appointment Date:12/02/2022 08:00:00 AM Scheduled Provider:Norma Pulido MD Location:[facility] Appointment Type:URO Office Visit [facility] evaluation + Plan note Future Appointments Appointment Date:12/15/2023 09:00:00 AM Scheduled Provider:Norma Pulido MD Location:[facility] Appointment Type:URO Office Visit Diagnostic Tests Pending * [email or web address] Other History general Narrative - Reported* Type Description Date Medical History Hyperlipidemia Medical History Diabetes Medical History Hypertension Surgical History Hysterectomy 1987 [facility] Other Hisbbqf general Narrative - Reported* Type Description Date Medical History Hyperlipidemia Medical History Diabetes Medical History Hypertension Surgical History Hysterectomy 1987 Hospitalization History SEE SURGICAL HX [facility] Other Hospital course Narrative No data available for this section [facility] Hospital Discharge instructions No data available for this section [facility] filedocumented in this encounter [facility] No data available for this section [facility] Summary Purpose Family History No Family History [...] affecting right lower extremity (M54.16) Referral Organization [facility] [employer] Referring Provider First Name Elisha Referring Provider Last Name Neida Referring Provider Specialty [facility] Referred [facility] Referred Address [address], [place],[address] Referred Provider Specialty Pain Medicin e Referral Priority Routine Reason [facility] [place] office? Last 2 OV, had xray and MRI. Occipital headaches Diagnosis 1 Recurrent occipital headache (R51.9) Referral Organization [facility] [employer] Referring Provider First Name Elisha Referring Provider Last Name Neida Referring Provider Specialty [facility] Referred Organization [facility] Referred Address [address] [place], [place],[address] Referred Provider Specialty Neurology Referral Priority Routine Reason [facility] [place] - varicose veins that are tender R>L Diagnosis 1 Varicose veins of yong th lower extremities with pain (I83.813) Referral Organization [facility] [employer] Referring Provider First Name Elisha Referring Provider Last Name Neida Referring Provider Specialty [facility] Referred Organization [facility] Referred Provider Betty Matos Referred Address [address],[place], [place],[address] Referred Provider Specialty Vascular Tena rj Referral Priority Routine General Notes Giselle Levy 11:48:16 AM >received today, attachments made, waiting for notes to be locked Giselle Levy 02/02/2023 09:22:14 AM >SENT TE TO LOCK NOTES Clinical Notes P: [id number] F: [id number] Additional Source Comments Care Team (unrecognized sect ion and content) 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 Relationship Specialty Start Date End Date Elisha Carrasquillo MD [address] [facility] [place] [address] PCP - General Family Medicine 02/04/23 INFORMATION SOURCE (unrecogn ized section and content) DATE CREATED AUTHOR 11/27/2021 [facility] DATE CREATED AUTHOR AUTHOR'S ORGANIZ ATION 10/06/2022 [facility] DATE CREATED AUTHOR AUTHOR'S ORGANIZ ATION 01/03/2023 [facility] DATE CREATED AUTHOR AUTHOR'S ORGANIZ ATION 06/02/2023 [facility] REASON FOR VISIT (unrecogniz ed section and content) Check [employer]pl[employer] and xrayNot Fee ling Well-COVID Negativereaction to medicationmammogramrefillHeadachesNOTES NEEDING LOCKEDUS Resultsheadache/medication discussionmessageRefilltests.medication questionbone painmessagerefillrefillfatigue, weaknesslabs FOR RECORDS PERTAINING TO PATIENTS WHO ARE [...] BE BASED ON THE PRIMARY CLINICAL RECORDS. [facility] [employer] [facility]. provides no warranty or guarantee of the accuracy or completeness of information in this document.
--- NOTE | 2023-06-15 03:57 | PC.NURSE ---
Pt presents to ER after tripping over her dog early this morning and hitting her forehead on the floor Pt states she heard a sound inside her head and is afraid she damaged something inside Pt denies any pain to the location at this time No tenderness, bruising, or swelling noted at site Pt states she does have some pain the muscles of her neck bilaterally Pt takes blood thinners, denies LOC
== END 2023-06-15 04:53 | disposition home or self-care (01) ==
PROVIDERS: Emergency Provider Internal Medicine; PCP Family Medicine
DX: S09.90XA Unspecified injury of head, initial encounter (principal); W19.XXXA Unspecified fall, initial encounter; Z79.01 Long term (current) use of anticoagulants; Z79.899 Other long term (current) drug therapy
CPT/HCPCS: 70450; 72125; 99284

== ENCOUNTER 2023-09-14 00:32 | Emergency (ER) | payer MEDICARE, SELFPAY ==
[2023-09-14] VITALS (9 sets, daily range): BP systolic 132–173; BP diastolic 66–94; PULSE 76; O2SAT 96–98; BMI 23.8
--- OUTSIDE RECORDS SUMMARY | 2023-09-14 01:17 | XMS_ITS | CCD ---
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 Name Role Phone JOAQUIN DEVINE Primary Care Physician Gino Carrasquillo NEIDA, DR GINO Lara Attending Unavailable CARRASQUILLO, DR GINO Lara Admitting Unavailable ZIEBER, DR KYLIE Soto Consulting Unavailable CARRASQUILLO, DR GINO Lara Primary Care Unavailable CARRASQUILLO, DR GINO Lara Consulting Unavailable CARRASQUILLO, DR GINO Lara Primary Care Unavailable CARRASQUILLO, DR GINO Lara Attending Unavailable [place], DR BRYCE Garcia Consulting Unavailable CARRASQUILLO, DR GINO Lara Admitting Unavailable CARRASQUILLO, DR GINO Lara Consulting Unavailable CARRASQUILLO, DR GINO Lara Primary Care Unavailable CARRASQUILLO, DR GINO Lara Attending Unavailable ZIEBER, DR KYLIE Soto Consulting Unavailable CARRASQUILLO, DR GINO Lara Admitting Unavailable CARRASQUILLO, DR GINO Lara Consulting Unavailable DIAB ., ESA Consulting Unavailable DIAB ., ESA Attending Unavailable FURLONG, DR JOAQUIN Porter Primary Care Unavailable DIAB ., ESA Admitting Unavailable FURMINDYNG, DR JOAQUIN Porter Primary Care Unavailable HAY ., DR CHATTERJEE Consulting Unavailable HAY ., DR CHATTERJEE Attending Unavailable HAY ., DR CHATTERJEE Admitting Unavailable FALVO, JOSE M Consulting Unavailable FURLONG, DR JOAQUIN Porter Primary Care Unavailable MARKER ., DR MCCONNELL Consulting Unavailable MARKER ., DR MCCONNELL Attending Unavailable MARKER ., DR MCCONNELL Admitting Unavailable SAID, RAYNE Consulting Unavailable CARRASQUILLO, DR GINO Lara Primary Care Unavailable LARRY ., DR PASTOR Consulting Unavailable LARRY ., DR PASTOR Attending Unavailable LARRY ., DR PASTOR Admitting Unavailable ZIEBER, DR KYLIE Soto Consulting Unavailable SRIDHAR, DR JOAQUIN Porter Primary Care Unavailable LARRY ., DR PASTOR Consulting Unavailable LARRY ., DR PASTOR Attending Unavailable LARRY ., DR PASTOR Admitting Unavailable FURLONG, DR JOAQUIN Porter Primary Care Unavailable LUE ., NORMA M Attending Unavailable LOBITO YEE Consulting Unavailable ASHOK Henson, NORMA Mauricio Admitting Unavailable ASHOK Henson, NORMA Mauricio Consulting Unavailable GINO CARRASQUILLO Primary Care Physician [phone] Norma Pulido Attending Unavailable TRISTA, KRISTINE Lara Attending Unavailab loyda TRISTA, KRISTINE Lara Attending Unavailab loyda WESTON, KRISTINE Lara Admitting Unavailab Kenji Gaytan MD Attending Unavailable Gino Carrasquillo MD Primary Care Provider [phone] Furlong DO, Joaquin G Primary Care Provider FURLONG, JOAQUIN G Referring Unavailable FURLONG, JOAQUIN G Primary Care Unavailable FURLONG, JOAQUIN G Attending Unavailable FURLONG, JOAQUIN G Referring Unavailable FURLONG, JOAQUIN G Primary Care Unavailable FURNG, JOAQUIN G Attending Unavailable GINO CARRASQUILLO Referring Unavailable FURLONG, JOAQUIN G Primary Care Unavailable Allergies Allergy Classification Reported Allergen(s) Allergy Type Date of Onset Reaction(s) Facility (20 sources) Amoxicillin; Translations: [amoxicillin] Drug Allergy 2 Eruption of skin (disorder), Hives, Rash [facility] (20 sources) cefdinir; Translations: [cefdinir] Drug Allergy 2 Eruption (morphologic abnormality), Rash, Hives [facility] (20 sources) Lisinopril; Translations: [lisinopril] Drug Allergy 2 Cough (finding), Cough [facility] (4 sources) metFORMIN; Translations: [metformin] Drug Allergy Other (qualifier value) [facility] (20 sources) Sulfamethoxazole / Trimethoprim; Translations: [sulfamethoxazole-tr imethoprim] Drug Allergy 2 Other (qualifier value), Other (See Comments) [facility] (1 source) Amino Acids Drug Allergy 3 [facility] (1 source) Amoxicillin Drug Allergy 1 [facility] (1 source) cefdinir Drug Allergy 3 [facility] (1 source) metFORMIN Drug Allergy 3 [facility] (1 source) Sulfamethoxazole / Trimethoprim Drug Allergy 3 [facility] (1 source) metFORMIN Drug Allergy 2 Other (See Comments) [facility] (2 sources) Sulfamethoxazole / Trimethoprim; Translations: [SULFAMETHOXAZOLE-TR IMETHOPRIM] Drug Allergy 2 [facility] Medications Current Medications Medication Drug Class(es) Dates Sig (Normalized) Sig (Original) 600+D3 600-20 MG-MCG (15 sources) take 1 tablet by mouth once daily 600+D3 600-20 MG-MCG 1 tablet with a meal Orally Once a day Active amLODIPine 5 mg oral tablet (20 sources) Dihydropyridine Calcium Channel Aileen Start: 06-04-2021 take 1 tablet by mouth in the morning amLODIPine (NORVASC) 5 mg tablet Take 1 tablet (5 mg total) by mouth in the morning. 90 tablet 1 06/11/2022 Active atorvastatin 10 mg oral tablet (20 sources) HMG-CoA Reductase Inhibitor Start: 07-07-2023 End: 08-26-2023 take 1 tablet by mouth in the morning atorvastatin (LIPITOR) 10 mg tablet Take 1 tablet (10 mg total) by mouth in the morning. 30 tablet 5 08/26/2023 Active Start: 06-04-2021 take 1 mg by [...] Active calcium carbonate 1500 mg / cholecalciferol 0.01 mg oral tablet (12 sources) Vitamin D take 1 tablet by mouth once in the morning calcium carbonate-vitamin D3 (CALTRATE) 600 mg(1,500mg) -400 units per tablet Take 1 tablet by mouth in the morning. 0 Active take 1 tablet by rebekah th every twenty-four hours 600+D3 600-20 MG-MCG 1 tablet with a meal Orally Once a day Active ciprofloxacin 500 mg oral tablet (3 sources) Quinolone Antimicrobial Start: 08-27-2022 take 1 tablet by mouth every twelve hours Ciprofloxacin HCl 500 MG 1 tablet Orally every 12 hrs for 7 days Aug, Active fluconazole 100 mg oral tablet (2 sources) Azole Antifungal Start: 09-08-2022 take 1 tablet by mouth every twenty-four hours Fluconazole 100 MG 1 tablet Orally daily for 7 days Aug, Active glimepiride 1 mg oral tablet (2 sources) Sulfonylurea Start: 06-04-2021 take 1 tablet by mouth once daily glimepiride 1 mg Tab mg tab(s), Oral, Daily, Refills(s) 0 Start Date: 06/04/21 Status: Ordered meclizine hydrochloride 25 mg oral tablet (20 sources) Antiemetic Start: 06-04-2021 take 1 mg by mouth three times daily meclizine 25 mg Tab mg tab(s), Oral, TID, Refills(s) 0 Start Date: 06/04/21 Status: Ordered End: 07-06-2023 meclizine (ANTIVERT) 25 mg t ablet Chew 1 tablet (25 mg total) and swallow 3 (three) times a day as needed for dizziness. 0 07/06/2023 Discontinued (Therapy completed) take 1 tablet by rebekah th every [...] oral tablet (20 sources) Biguanide Start: 06-04-2021 End: 08-12-2023 take 1 tablet by mouth in the morning, then take 1 tablet by mouth at mealtime metFORMIN (GLUCOPHAGE) 500 mg tablet Take 1 tablet (500 mg total) by mouth in the morning and 1 tablet (500 mg total) in the evening. Take with meals. 60 tablet 5 08/12/2023 Active take 1 tablet by rebekah th every twenty-four hours metFORMIN HCl 1000 MG 1 tablet with a meal Orally Once a day for 90 days Active take 1 tablet by mouth every twe lve hours metFORMIN HCl 1000 MG 1 tablet with a meal Orally bid for 90 days Active take 1 tablet by rebekah th every twenty-four hours metFORMIN HCl 500 MG 1 tablet with a meal Orally Once a day for 90 days Active Vitamin D3 (3 sources) Start: 06-04-2021 Vitamin D3 Ref ills(s) 0 Start Date: 06/04/21 Status: Ordered Completed/Discontinued Medications Medication Drug Class(es) Dates Sig (Normalized) Sig (Original) [id number] 200 actuat albuterol 0.09 mg/actuat metered dose inhaler (2 sources) beta2-Adrenergic Agonist End: 07-06-2023 take 2 puff(s) by inhalation every six hours as needed for wheezing albuterol (PROVENTIL HFA;VENTOLIN HFA) 90 mcg/actuation inhaler Inhale 2 puffs every 6 (six) hours as needed for wheezing. 0 07/06/2023 Discontinued (Therapy completed) alendronic acid 70 mg oral tablet (2 sources) Bisphosphonate End: 07-06-2023 take 1 tablet by mouth in the morning alendronate (FOSAMAX) 70 mg tablet Take 1 tablet (70 mg total) by mouth every 7 days. Take in the morning with a full glass of water, on an empty stomach, and do not take anything else by mouth or lie down for the next 30 min. 0 07/06/2023 Discontinued (Therapy completed) ALPRAZolam 0.25 mg oral tablet (2 sources) Benzodiazepine End: 07-06-2023 take 1 tablet by mouth once daily as needed for anxiety ALPRAZolam (XANAX) 0.25 mg tablet Take 1 tablet (0.25 mg total) by mouth nightly as needed for anxiety. 0 07/06/2023 Discontinued (Therapy completed) apixaban 5 mg oral tablet (14 sources) Factor Xa Inhibitor End: 08-23-2023 take 1 tablet by mouth in the morning, then take 1 tablet by mouth at bedtime apixaban (ELIQUIS) 5 mg tablet Take 1 tablet (5 mg total) by mouth in the morning and 1 tablet (5 mg total) before bedtime. 0 08/23/2023 Discontinued (Therapy completed) aspirin 81 mg oral tablet (5 sources) Platelet Aggregation Inhibitor, Nonsteroidal Anti-inflammatory Drug Start: 06-04-2021 End: 07-06-2023 take 1 tablet by mouth in the morning aspirin 81 mg capsule Take 1 tablet by mouth in the morning. 0 06/04/2021 07/06/2023 Discontinued (Therapy completed) Start: 06-04-2021 take 1 mg by mouth e very four hours aspirin 81 mg oral capsule mg cap(s), Oral, q4hr, Refills(s) 0 Start Date: 06/04/21 Status: Ordered dextromethorphan hydrobromide 2 mg/ml / guaiFENesin 20 mg/ml oral solution (2 sources) Uncompetitive O-fuzspf-M-aspartate Receptor Antagonist, Sigma-1 Agonist Start: 07-03-2022 End: 07-06-2023 take 5 mL by mouth every four hours as needed dextromethorphan-guaiFENesin (TUSSIN DM) 10-100 mg/5 mL liquid Take 5 mL by mouth every 4 (four) hours as needed (cough and congestion). 240 mL 2 07/03/2022 07/06/2023 Discontinued (Therapy completed) docusate sodium 100 mg oral capsule (5 sources) Start: 03-27-2022 End: 07-06-2023 take 1 capsule by mouth in the morning docusate sodium (DULCOLAX STOOL SOFTENER, DSS,) 100 mg capsule Indications: Drug-induced constipation Take 1 capsule (100 mg total) by mouth in the morning. 90 capsule 1 03/27/2022 07/06/2023 Discontinued (Therapy completed) Start: 06-04-2021 take 1 mg by mouth twice daily Dulcolax Stool Softener mg, Oral, BID, Refills(s) 0 Start Date: 06/04/21 Status: Ordered fluticasone propionate 0.05 mg/actuat metered dose nasal spray (2 sources) Corticosteroid End: 07-06-2023 take 1 spray(s) nasal route in the morning fluticasone propionate (FLONASE) 50 mcg/actuation nasal spray Administer 1 spray into each nostril in the morning. 0 07/06/2023 Discontinued (Therapy completed) losartan potassium 50 mg oral tablet (20 sources) Angiotensin 2 Receptor Aileen End: 07-06-2023 take 1 tablet by mouth in the morning losartan (COZAAR) 50 mg tablet Take 1 tablet (50 mg total) by mouth in the morning. 0 07/06/2023 Discontinued (Therapy completed) take 1 tablet by rebekah th every twenty-four hours Losartan Potassium 25 MG 1 tablet Orally Once a day Active montelukast 10 mg oral tablet (2 sources) Leukotriene Receptor Antagonist End: 07-06-2023 take 1 tablet by mouth once daily montelukast (SINGULAIR) 10 mg tablet Take 1 tablet (10 mg total) by mouth nightly. 0 07/06/2023 Discontinued (Therapy completed) pioglitazone 15 mg oral tablet (20 sources) Peroxisome Proliferator Receptor alpha Agonist, Peroxisome Proliferator Receptor gamma Agonist, Thiazolidinedione End: 07-06-2023 take 1 tablet by mouth in the morning pioglitazone (ACTOS) 15 mg tablet Take 1 tablet (15 mg total) by mouth in the morning. 0 07/06/2023 Discontinued (Therapy completed) PREDNISOLONE-MOXIF LOX-BROMFEN OPHT (2 sources) End: 07-06-2023 PREDNISOLONE-MOXI FLOX-BROMFEN OPHT Instill 1 drop into affected eye twice a day for 1 week then once a day for 3 weeks immediately following surgery 0 07/06/2023 Discontinued (Therapy completed) PREDNISOLONE-MOX IFLOX-BROMFEN OPHT Instill 1 drop into affected eye twice a day for 1 week then once a day for 3 weeks immediately following surgery 0 Active tiZANidine 4 mg oral tablet (6 sources) Central alpha-2 Adrenergic Agonist Start: 03-27-2022 End: 07-06-2023 take 1 tablet by mouth once daily for pain tiZANidine (ZANAFLEX) 4 mg tablet Indications: Spondylosis of lumbar region without myelopathy or radiculopathy Take 1 tablet (4 mg total) by mouth nightly. Use at night for acute back pain 10 tablet 1 03/27/2022 07/06/2023 Discontinued (Therapy completed) Problems Active Problems Problem Classification Problem Date Documented Da te Episodic/Chronic Anxiety disorders (13 sources) Generalized anxiety disorder; Translations: [Generalized anxiety disorder] Onset: 03-27-2022 03-27-2022 Chronic Diabetes mellitus with complications (20 sources) Type 2 diabetes mellitus; Translations: [Type 2 diabetes mellitus with hyperglycemia] Onset: 08-29-2015 Chronic Diabetes mellitus without complication (10 sources) Type 2 diabetes mellitus without complications; Translations: [Type 2 diabetes mellitus without complication] Onset: 03-10-2022 07-06-2023 Chronic Disorders of lipid metabolism (20 sources) Mixed hyperlipidemia; Translations: [Mixed hyperlipidemia] Onset: 03-10-2022 Chronic Diverticulosis and diverticulitis (7 sources) Diverticular disease; Translations: [Diverticulosis of intestine, part unspecified, without perforation or abscess without bleeding] Onset: 03-27-2022 03-27-2022 Chronic Essential hypertension (20 sources) Essential hypertension; Translations: [Essential (primary) hypertension] Onset: 08-26-2020 Chronic Genitourinary symptoms and ill-defined conditions (15 sources) Unspecified urinary incontinence; Translations: [Urinary incontinence] Onset: 11-26-2021 Chronic Genitourinary symptoms and ill-defined conditions (18 sources) Microscopic hematuria; Translations: [Asymptomatic microscopic hematuria] Onset: 11-22-2021 Episodic Headache; including migraine (7 sources) Tension-type headache; Translations: [Tension-type headache, unspecified, not intractable] Onset: 03-27-2022 03-27-2022 Chronic Malaise and fatigue (4 sources) Fatigue; Translations: [Chronic fatigue, unspecified] Chronic Nonmalignant breast conditions (1 source) Unspecified lump in the right breast, upper inner quadrant; Translations: [UNS LUMP IN RT BREAST UPR INR QUAD] Onset: 09-29-2022 Episodic Nonspecific chest pain (4 sources) Other chest pain; Translations: [OTHER CHEST PAIN] Onset: 07-16-2022 Episodic Osteoarthritis (7 sources) Degenerative joint disease of shoulder region; Translations: [Primary osteoarthritis, unspecified shoulder] Onset: 03-19-2021 03-27-2022 Chronic Osteoporosis (7 sources) Senile osteoporosis; Translations: [Age-related osteoporosis without current pathological fracture] Onset: 03-27-2022 03-27-2022 Chronic Other acquired deformities (7 sources) Contracture of joint of right ankle; Translations: [Contracture, right ankle] Onset: 03-27-2022 03-27-2022 Chronic Other aftercare (1 source) Long-term current use of aspirin; Translations: [[facility] (current) use of aspirin] Onset: 11-26-2021 Episodic Other aftercare (1 source) [facility] (current) use of oral hypoglycemic drugs; Translations: [GROUP HOME USE ORAL HYPOGLYCEMIC DX] Onset: 07-20-2022 Episodic Other aftercare (1 source) Other fpc (current) drug therapy; Translations: [OTH GROUP HOME CURRENT DRUG THERAPY] Onset: 07-20-2022 Episodic Other [...] Episodic Other diseases of kidney and ureters (7 sources) Cyst of kidney; Translations: [Cyst of kidney, acquired] Onset: 07-06-2023 11-26-2022 Episodic Other ear and sense organ disorders (7 sources) Chronic non-infective otitis externa; Translations: [Other otitis externa, bilateral] Onset: 03-27-2022 03-27-2022 Chronic Other ear and sense organ disorders (7 sources) Sensorineural hearing loss, bilateral; Translations: [Sensorineural hearing loss, bilateral] Onset: 03-27-2022 03-27-2022 Chronic Other hereditary and degenerative nervous system conditions (7 sources) Finding of scapular structure; Translations: [Other specified extrapyramidal and movement disorders] Onset: 03-27-2022 03-27-2022 Chronic Other inflammatory condition of skin (7 sources) Psoriasis; Translations: [Psoriasis, unspecified] Onset: 03-27-2022 03-27-2022 Chronic Other nervous system disorders (7 sources) Mortons neuroma of right foot; Translations: [Lesion of plantar nerve, right lower limb] Onset: 03-27-2022 03-27-2022 Chronic Other screening for suspected conditions (not mental disorders or infectious disease) (10 sources) Encounter for screening mammogram for malignant neoplasm of breast; Translations: [Other abnormal and inconclusive findings on diagnostic imaging of breast] Onset: 01-27-2022 Episodic Other upper respiratory disease (7 sources) Allergic rhinitis; Translations: [Allergic rhinitis, unspecified] Onset: 03-27-2022 03-27-2022 Chronic Other upper respiratory infections (1 source) Acute maxillary sinusitis, unspecified Episodic Phlebitis; thrombophlebitis and thromboembolism (8 sources) Acute deep venous thrombosis of calf; Translations: [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] Onset: 07-06-2023 07-06-2023 Episodic Residual codes; unclassified (4 sources) Asymptomatic menopausal state; Translations: [ASYMPTOMATIC MENOPAUSAL STATE] Onset: 08-11-2022 Episodic Spondylosis; intervertebral disc disorders; other back problems (7 sources) Cervical disc disorder; Translations: [Cervical disc disorder, [...] source) Finding of sensation of bladder 12-09-2022 Unclassified (2 sources) 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; Translations: [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] Onset: 07-06-2023 Unclassified (1 source) Wants to be a patient here again Onset: 07-06-2023 Varicose veins of lower extremity (16 sources) Varicose veins of lower extremity; Translations: [Varicose veins of bilateral lower extremities with pain] Episodic Past or Other Problems Problem Classification Problem Date Documented Date Episodic/Chronic Allergic reactions (7 sources) Eczema; Translations: [Dermatitis, unspecified] Onset: 2 03-27-2022 Episodic Conditions associated with dizziness or vertigo (11 sources) Dizziness and giddiness; Translations: [Benign paroxysmal positional vertigo] Onset: 6 Episodic Disorders of teeth and jaw (7 sources) Temporomandibular joint disorder; Translations: [Unspecified temporomandibular joint disorder, unspecified side] Onset: 8 03-27-2022 Episodic E Codes: Fall (1 source) Fall on same level from slipping, tripping and stumbling without subsequent striking against object, initial encounter; Translations: [FALL SAME LVL SLIP NO STRK OBJ INIT] Onset: 2 Episodic Gastritis and duodenitis (7 sources) Duodenitis; Translations: [Duodenitis without bleeding] Onset: 1 03-27-2022 Episodic Headache; including migraine (6 sources) Headache; including migraine; Translations: [HEADACHE UNSPECIFIED] Onset: 2 Immunizations and screening for infectious disease (1 source) Encounter for screening for human papillomavirus (HPV); Translations: [ENC SCREENING HUMAN PAPILLOMAVIRUS] Onset: 2 Episodic Mood disorders (7 sources) Depressive disorder; Translations: [Depressive disorder] Onset: 2 Resolved: 4 03-27-2022 Chronic Mood disorders (7 sources) Mood disorders Onset: 3 Resolved: 4 07-23-2022 Nutritional deficiencies (7 sources) Cobalamin deficiency; Translations: [Deficiency of other specified B group vitamins] Onset: 2 03-27-2022 Episodic Other and unspecified benign neoplasm (7 sources) Cavernous hemangioma; Translations: [Hemangioma unspecified site] Onset: 2 03-27-2022 Episodic Other bone disease and musculoskeletal deformities (7 sources) Cervical somatic dysfunction; Translations: [Segmental and somatic dysfunction of cervical region] Onset: 2 04-13-2022 Episodic Other bone disease and musculoskeletal deformities (7 sources) Segmental and somatic dysfunction; Translations: [Segmental and somatic dysfunction of thoracic region] Onset: 2 04-13-2022 Episodic Other circulatory disease (7 sources) Elevated blood pressure; Translations: [Elevated blood-pressure reading, without diagnosis of hypertension] Onset: 9 03-27-2022 Episodic Other connective tissue disease (7 sources) Muscle pain; Translations: [Myalgia, unspecified site] Onset: 2 03-27-2022 Episodic Other injuries and conditions due to external causes (1 source) Unspecified injury of head, initial encounter; Translations: [UNSPECIFIED INJURY HEAD INITIAL ENC] Onset: 2 Episodic Other nutritional; endocrine; and metabolic disorders (7 sources) Overweight; Translations: [Overweight] Onset: 2 Resolved: 4 03-27-2022 Episodic Other upper respiratory disease (7 sources) Deviated nasal septum; Translations: [Deviated nasal septum] Onset: 9 03-27-2022 Episodic Residual codes; unclassified (1 source) Acquired absence of both cervix and uterus; Translations: [ACQUIRED ABSENCE BOTH CERVIX AND UTERUS] Onset: 2 Episodic Unclassified (1 source) Low back pain, unspecified M54.50 Unclassified (1 source) Vaginal yeast infection B37.31 Results Test Name Value Interpretation Reference Range Facility COMPREHENSIVE METABOLIC PANE [facility] 07-06-2023 Albumin [Mass/Vol] 4.5 g/dL Normal 3.2-5.3 [facility] Comment on above: Performed By: #### C , 83581-7, 2088-05 #### [facility] ([id number]) [address], [address] [place] [address] ALP [Catalytic activity/Vol] 49 U/L Normal 39-130 [facility] Comment on above: Performed By: #### C , 30704-6, 2088-05 #### [facility] ([id number]) [address], [address] [place] [address] ALT [Catalytic activity/Vol] 9 U/L Normal 0-31 [facility] Comment on above: Performed By: #### Satinder SERRANO, , 2088-05 #### [facility] ([id number]) [address], [address] [place] [address] Anion gap [Moles/Vol] 10 mmol/L Normal 5-15 [facility] Comment on above: Performed By: #### Satinder SERRANO, , 2088-05 #### [facility] ([id number]) [address], [address] [place] [address] AST [Catalytic activity/Vol] 14 U/L Normal 0-41 [facility] Comment on above: Performed By: #### Satinder SERRANO, , 2088-05 #### [facility] ([id number]) [address], [address] [place] [address] Bilirubin [Mass/Vol] 0.4 mg/dL Normal 0.3-1.2 [facility] Comment on above: Performed By: #### Satinder SERRANO, , 2088-05 #### [facility] ([id number]) [address], [address] [place] [address] Calcium [Mass/Vol] 10.2 mg/dL Normal 8.5-10.5 [facility] Comment on above: Performed By: #### Satinder SERRANO, , 2088-05 #### [facility] ([id number]) [address], [address] [place] [address] Chloride [Moles/Vol] 105 mmol/L Normal 98-109 [facility] Comment on above: Performed By: #### Satinder SERRANO, , 2088-05 #### [facility] ([id number]) [address], [address] [place] [address] CO2 [Moles/Vol] 28 mmol/L Normal 22-32 [facility] Comment on above: Performed By: #### Satinder SERRANO, , 2088-05 #### [facility] ([id number]) [address] [address] [place] [address] Creatinine [Mass/Vol] 0.62 mg/dL Normal 0.40-1.00 [facility] Comment on above: Result Comment: METH OD TRACEABLE TO IDMS STANDARD Performed By: #### Satinder SERRNAO, , 2088-05 #### [facility] ([id number]) [address], [address] [place] [address] eGFR (CKD-EPI) NON-RACE DEPENDENT >90 Normal >59 [facility] Comment on above: Result Comment: Reported eGFR is based on the CKD-EPI 2020 equation that does not use a race coefficient. Performed By: #### Satinder SERRANO, , 2088-05 #### [facility] ([id number]) [address], [address] [place] [address] Glucose [Mass/Vol] 107 mg/dL High 65-99 [facility] Comment on above: Performed By: #### Satinder SERRANO, , 2088-05 #### [facility] ([id number]) [address], [address] [place] [address] Potassium [Moles/Vol] 3.5 mmol/L Normal 3.5-5.0 [facility] Comment on above: Performed By: #### Satinder SERRANO, , 2088-05 #### [facility] ([id number]) [address], [address] [place] [address] Protein [Mass/Vol] 7.4 g/dL Normal 6.0-8.0 [facility] Comment on above: Performed By: #### Satinder SERRANO, , 2088-05 #### [facility] ([id number]) [address], [address] [place] [address] Sodium [Moles/Vol] 143 mmol/L Normal 134-146 [facility] Comment on above: Performed By: #### C MAGGIE, 56983-9, 2088-05 #### [facility] ([id number]) [address], [address] [place] [address] Urea nitrogen [Mass/Vol] 8 mg/dL Normal 5-27 [facility] Comment on above: Performed By: #### C MAGGIE, 39903-5, 2088-05 #### [facility] ([id number]) [address], [address] [place] [address] Comprehensive metabolic pane rajiv 07-06-2023 Albumin [Mass/Vol] 4.5 g/dL 3.2 - 5.3 g/dL [facility] ALP [Catalytic activity/Vol] 49 U/L 39 - 130 U/L [facility] ALT No additional P-5'-P [Catalytic activity/Vol] 9 U/L 0 - 31 U/L [facility] Anion gap [Moles/Vol] 10 mmol/L 5 - 15 mmol/L [facility] AST [Catalytic activity/Vol] 14 U/L 0 - 41 U/L [facility] Bilirubin [Mass/Vol] 0.4 mg/dL 0.3 - 1 .2 mg/dL [facility] Calcium [Mass/Vol] 10.2 mg/dL 8.5 - 10. 5 mg/dL [facility] Chloride [Moles/Vol] 105 mmol/L 98 - 10 9 mmol/L [facility] CO2 [Moles/Vol] 28 mmol/L 22 - 32 mmol/L [facility] Creatinine [Mass/Vol] 0.62 mg/dL 0.40 - 1.00 mg/dL [facility] Comment on above: METHOD TRACEABLE TO IDDC STANDARD eGFR (CKD-EPI)non-race dependent - PINF [facility] Comment on above: Reported eGFR is based on the CKD-EPI 2020 equation that does not use a race coefficient. Glucose [Mass/Vol] 107 mg/dL High 65 - 99 mg/dL [facility] Potassium [Moles/Vol] 3.5 mmol/L 3.5 - 5.0 mmol/L [facility] Protein [Mass/Vol] 7.4 g/dL 6.0 - 8.0 g/dL [facility] Sodium [Moles/Vol] 143 mmol/L 134 - 146 mmol/L [facility] Urea nitrogen [Mass/Vol] 8 mg/dL 5 - 27 mg/dL [facility] DIRECT LDLon 07-06-2023 Cholesterol in LDL [Mass/Vol] 154 mg/dL High <130 [facility] Comment on above: Result Comment: LDL <100 mg/dL - Desirable LDL 130-159 mg/dL - Borderline High Risk LDL >160 mg/dL - High Risk Performed By: #### Satinder SERRANO, 60457-8, 2088-05 #### [facility] ([id number]) [address], [address] [place] [address] HGB A1C (GLYCO-HGB)on 2023 Glucose [Mass/Vol] 157 mg/dL Normal [facility] Comment on above: Performed By: ###[place], [address]-7, 2088-05 #### [facility] ([id number]) [address], [address] [place] [address] HbA1c (Bld) [Mass fraction] 7.1 % High 4.4-5.6 [facility] Comment on above: Result Comment: NOTE ADA Guidelines Result HgbA1c Normal : less than 5.7 % Prediabetes : 5.7 % to 6.4 % Diabetes : > 6.4 % Use with caution in patients with abnormal hemoglobin variants as the half-life of red blood cells and in vivo glycation rates are affected. Performed By: ###[place], [address]-4, 2088-05 #### [facility] ([id number]) [address] [place] [address] Lipid 1996 panelon 4 Cholesterol [Mass/Vol] 234 mg/dL High 150 - 200 mg/dL [facility] Cholesterol in HDL [Mass/Vol] 54 mg/dL 39 - PINF mg/dL [facility] Comment on above: HDL <40 mg/dL - High Risk HDL > or = 40mg/dL- Desirable HDL >60 mg/dL - Negative Risk Cholesterol in LDL [Mass/Vol] RESULT NOT REPORTED DUE TO HIGH TRIGLYCERIDE NINF - 130 mg/dL [facility] Cholesterol in VLDL [Mass/Vol] 84 mg/dL High 0 - 30 mg/dL [facility] Cholesterol.total/Ch olesterol in HDL [Mass ratio] 4.3 {ratio} 1.0 - 5.0 [facility] Triglyceride [Mass/Vol] 418 mg/dL High 27 - 150 mg/dL [facility] Cholesterol [Mass/Vol] 234 mg/dL High 150-200 [facility] Comment on above: Performed By: ###[place], [address]-0, 2088-05 #### [facility] ([id number]) [address], [address] [place] [address] Cholesterol in HDL [Mass/Vol] 54 mg/dL Normal >39 [facility] Comment on above: Result Comment: HDL <40 mg/dL - High Risk HDL > or = 40mg/dL- Desirable HDL >60 mg/dL - Negative Risk Performed By: ###[place], [address]-0, 2088-05 #### [facility] ([id number]) [address], [address] [place] [address] Cholesterol in VLDL [Mass/Vol] 84 mg/dL High 0-30 [facility] Comment on above: Performed By: #### C MAGGIE, , 2088-05 #### [facility] ([id number]) [address], [address] [place] [address] CHOLESTEROL:HDL 4.3 Normal 1.0-5.0 [facility] Comment on above: Performed By: #### C MAGGIE, , 2088-05 #### [facility] ([id number]) [address] [place] [address] LDL (CALC) RESULT NOT REPORTED DUE TO HIGH TRIGLYCERIDE Normal <130 [facility] Comment on above: Performed By: #### C MAGGIE, , 2088-05 #### [facility] ([id number]) [address], [address] [place] [address] Triglyceride [Mass/Vol] 418 mg/dL High 27-150 [facility] Comment on above: Performed By: #### C MAGGIE, , 2088-05 #### [facility] ([id number]) [address], [address] [place] [address] No Panel Informationon 07-06 Interpretation and review of laboratory results Abnormal [facility] RAD - Ultrasound Reporton RAD - Ultrasound Report [id number] Normal [facility] C Urineon 12-11-2022 Bacteria identified Cx [...] Locations R1: This test was performed at: [facility], [address] [place] [address], [address] , [place], [facility] Comment on above: Performed By: #### 2 [id number] #### [facility] [address] [place] [address] Ambulatory Visit Summaryon 0 12-09-2022 Ambulatory Visit Summary PEARL JONES :1950 Visit Date:12/09/2022 Ambulatory Visit Instructions Your Diagnosis Asymptomatic microscopic hematuria Renal cyst Leaking of urine Feeling of incomplete bladder emptying Aspirin long-term use Tests Performed Urnls Dip Stick Auto w/o Microscopy POC 61637 Your Care Team Attending Physician - SADAF WESTON PA-C Primary Care Physician - GINO CARRASQUILLO MD This Is Your Medications List [...] LAWTON, Norma Chambers Where: [facility] Patient Educationon 12-10-19 23 Patient Education Urology Hematuria, Adult Hematuria is [...] these instructions at home: Medicines ? Take pkfn-xzf-lsojxye and prescription medicines only as told by [...] the blood stops without treatment. ? Take zvej-kah-txbkfiv and prescription medicines only as told by your health care provider. ? Drink enough fluid to keep your urine pale yellow. This information is not intended to replace advice given to you by your health care provider. Make sure you discuss any questions you have with your health care provider. Document Revised: 01/08/2021 Document Reviewed: 01/08/2021 [employer] Patient Education ? 2022 [employer] ([employer]). Normal [facility] URINALYSISOrdered By: Stephanie moy on 12-09-2022 [...] Interpretation Code Negative [facility] UA Auto SS Celada.plasma/Lithi um.RBC (Bld) [Mass ratio] 0-3 /HPF Normal 0-3/HPF [facility] UA Auto SS Mucus Ql (Urine sed) 2+ (12/09/22 3:29 PM) Normal [facility] UA Auto SS Nitrite Ql (U) Negative (12/09/22 3:29 PM) Normal Negative FT UA Auto SS pH (U) 6.0 *NA* (12/09/22 3:29 PM) Invalid Interpretation Code 5.0 - 9.0 [facility] UA Auto SS Protein (U) [Mass/Vol] Negative (12/09/22 3:29 PM) Normal Negative [facility] UA Auto SS Specific gravity (U) [Rel density] 1.015 *NA* (12/09/22 3:29 PM) Invalid Interpretation Code 1.005 - 1.030 [facility] [place] [facility] UA Auto SS UA Spec Desc Random Urine (12/09/22 3:29 PM) Normal [facility] [place] [facility] UA Auto SS Urobilinogen Qn (U) 0.3248749 {Tyrell'U}/dL Normal 0.0 - 1.0 EU/dL [facility] [place] UA Auto SS WBC Auto Ql (U) Negative (12/09/22 3:29 PM) Normal Negative [facility] [place] UA Auto SS WBC LM.HPF (Urine sed) [#/Area] 0-5 /HPF Normal 0-5/HPF [facility] [place] [facility] UA Auto SS Urinalysison 12-09-2022 Bilirubin Ql (U) Negative Normal Negative [facility] Comment on above: Performed By: #### 1 [id number] #### [facility] [address] [place] [address] Clarity (U) CLEAR Normal Clear [facility] Comment on above: Performed By: #### 1 [id number] #### [facility] [address] [place] [address] Color (U) YELLOW Normal Yellow [facility] Comment on above: Performed By: #### 1 [id number] #### [facility] [address] [place] [address] Crystals LM Ql (Urine sed) Present Normal [facility] Comment on above: Performed By: #### 1 [id number] #### [facility] [address] [place] [address] Epithelial cells.squamous LM.HPF (Urine sed) [#/Area] 0-2 Normal 0-2 [facility] Comment on above: Performed By: #### 1 [id number] #### [facility] [address] [place] [address] Glucose Test strip (U) [Mass/Vol] 1+ Abnormal Negative [facility] Comment on above: Performed By: #### 1 [id number] #### [facility] [address] [place] [address] Hemoglobin Ql (U) 2+ Abnormal Negative [facility] Comment on above: Performed By: #### 1 [id number] #### [facility] [address] [place] [address] Ketones (U) [Mass/Vol] TRACE Invalid Interpretation Code Negative [facility] Comment on above: Performed By: #### 1 [id number] #### [facility] [address] [place] [address] Celada.plasma/Lithi um.RBC (Bld) [Mass ratio] 0-3 Normal 0-3 [facility] Comment on above: Performed By: #### 1 [id number] #### [facility] [address] [place] [address] Mucus Ql (Urine sed) 2+ Normal [facility] Comment on above: Performed By: #### 1 [id number] #### [facility] [address] [place] [address] Nitrite Ql (U) Negative Normal Negative [facility] Comment on above: Performed By: #### 1 [id number] #### [facility] [address] [place] [address] pH (U) 6.0 [pH] Invalid Interpretation Code 5.0-9.0 [facility] Comment on above: Performed By: #### 1 [id number] #### [facility] [address] [place] [address] Protein (U) [Mass/Vol] Negative Normal Negative [facility] Comment on above: Performed By: #### 1 [id number] #### [facility] [address] [place] [address] Specific gravity (U) [Rel density] 1.015 Invalid Interpretation Code 1.005-1.030 [facility] Comment on above: Performed By: #### 1 [id number] #### [facility] [address] [place] [address] Type of Urine collection method Random Urine Normal [facility] Comment on above: Performed By: #### 1 [id number] #### [facility] [address] [place] [address] Urobilinogen Qn (U) 0.2 {Tyrell'U}/dL Normal 0.0-1.0 [facility] Comment on above: Performed By: #### 1 [id number] #### [facility] [address] [place] [address] WBC Auto Ql (U) Negative Normal Negative [facility] Comment on above: Performed By: #### 1 [id number] #### [facility] [address] [place] [address] WBC LM.HPF (Urine sed) [#/Area] 0-5 Normal 0-5 [facility] Comment on above: Performed By: #### 1 [id number] #### [facility] [address] [place] [address] Urology Office/Clinic Noteon 12-09-2022 Urology Office/Clinic Note [...] cystoscopy, urine cytology and CT urogram from [facility] 06/10/21 noted no filling defects or [...] 25 mL. 5. 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 Follow up in 1 yr. All questions/concerns were discussed. Pt to call the office if she encounters any issues prior. Pt acknowledges understanding. Follow-up With When Contact Information TRISTA CARMONA, SADAF Lara, URL In 1 day [address] [place] [address] Additional Instructions: Patient Education Hematuria, Adult Documentation recorded by the scribjane Samuel accurately reflects the services(s) I performed [...] to refusal (more content not included)... Normal [facility] Comment on above: Result Comment: Elec tronically Signed By: SADAF WESTON PA-C\.br\Date and Time Signed: 12/09/22 16:21 EDT\.br\Electronically Co-Signed By: María Samuel\.br\Date and Time Co-Signed: 12/09/22 15:13 EDT Reminderson 12-01-2022 Reminders - From: Divya Pitt To: PROSPER Pulido; Sent: 11/26/2021 09:02:57 EDT Show up: 11/05/2022 09:02:00 EDT Subject: renal US Reminder/Recall schedule prior to patients 12/02/2022 office visit Renal US scheduled for 12/02/22 @ [facility] Follow up has been rescheduled with VASILIY 12/09/22. Normal [facility] MG MAMM RT DIAG FUon 023 MG MAMM RT DIAG FU Patient: PEARL JONES Exam Date: 10/05/2022 : 1950 Gender:F Ordering : DR GINO CARRASQUILLO M.D. Admission #: [id number] Family : Order #: [id number] CLICK HERE TO VIEW EXAM RADIOLOGY REPORT [...] Treatments None Family Cancers None LOCATION: [facility] BREAST COMPOSITION: Heterogeneously dense,which may obscure small [...] PALPABLE LUMP SHOULD BE BIOPSIED. Dictated by: Kylie Menon M.D. on 10/05/2022 at 08:02 Approved by: Kylie Menon M.D. on 10/05/2022 at 08:35 Normal [facility] US BREAST RIGHT LIMITEDon US BREAST RIGHT LIMITED Patient: PEARL JONES Exam Date: 10/05/2022 : 1950 Gender:F Ordering : DR GINO CARRASQUILLO M.D. Admission #: [id number] Family : Order #: [id number] CLICK HERE TO VIEW EXAM RADIOLOGY REPORT [...] Treatments None Family Cancers None LOCATION: [facility] BREAST COMPOSITION: Heterogeneously dense,which may obscure small [...] PALPABLE LUMP SHOULD BE BIOPSIED. Dictated by: Kylie Menon M.D. on 10/05/2022 at 08:02 Approved by: Kylie Menon M.D. on 10/05/2022 at 08:35 Normal [facility] MG MAMM SCREEN 3D SALMA CADon 09-22-2022 MG MAMM SCREEN 3D SALMA CAD Patient: PEARL JONES Exam Date: 09/22/2022 : 1950 Gender:F Ordering : DR GINO CARRASQUILLO M.D. Admission #: [id number] Family : Order #: [id number] CLICK HERE TO VIEW EXAM RADIOLOGY REPORT [...] Treatments None Family Cancers None LOCATION: [facility] BREAST COMPOSITION: Heterogeneously dense,which may obscure small [...] MD on 09/23/2022 at 08:48 Normal [facility] CBC AUTO DIFFon 08-12-2022 BASO # 0.0 103/ul Normal 0.0-0.1 [facility] Comment on above: Performed By: #### C BC ####[facility] [address] [place], [place] [address]ZxNatividad Clifton Basophils/100 WBC (Bld) 0.7 % Normal 0.2-2.0 [facility] Comment on above: Performed By: #### C BC ####[facility] [address] [place], [place] [address]UqNatividad Clifton EO # 0.1 103/ul Normal 0.0-0.7 [facility] Comment on above: Performed By: #### C BC ####[facility] [address] [place] [id number]. Silvino Clifton Eosinophils/100 WBC (Bld) 2.1 % Normal 0.9-7.0 [facility] Comment on above: Performed By: #### C BC ####[facility] [address] [place], [place] [address]Dr. Silvino Clifton Erythrocyte distribution width (RBC) [Ratio] 12.3 % Normal 11.0-15.0 [facility] Comment on above: Performed By: #### C BC ####[facility] [address] [place], [place] [address]Dr. Silvino Clifton Hematocrit (Bld) [Volume fraction] 38.2 % Normal 36.0-48.0 [facility] Comment on above: Performed By: #### C BC ####[facility] [address] [place], [place] [address]Dr. Silvino Clifton Hemoglobin (Bld) [Mass/Vol] 12.8 g/dL Normal 12.0-16.0 [facility] Comment on above: Performed By: #### C BC ####[facility] [address] [place], [place] [address]Dr. Silvino Clifton IG # 0.02 10e3/ul Normal 0.00-0.03 [facility] Comment on above: Performed By: #### C BC ####[facility] [address] [place], [place] [address]Dr. Silvino Clifton IG % 0.3 % Normal 0.0-0.5 [facility] Comment on above: Performed By: #### C BC ####[facility] [address] [place], [place] [address]Dr. Silvino Clifton LYMPH # 2.2 103/ul Normal 1.2-3.8 [facility] Comment on above: Performed By: #### C BC ####[facility] [address] [place], [place] [address]Dr. Silvino Clifton Lymphocytes/100 WBC (Bld) 35.4 % Normal 20.5-60.0 [facility] Comment on above: Performed By: #### C BC ####[facility] [address] [place] [id number]. Silvino Clifton MANUAL DIFF REQ NO Normal [facility] Comment on above: Performed By: #### C BC ####[facility] [address] [place] [id number]. Silvino Clifton MCH (RBC) [Entitic mass] 28.0 pg Normal 26.7-34.0 [facility] Comment on above: Performed By: #### C BC ####[facility] [address] [place] [id number]. Silvino Clifton MCHC (RBC) [Mass/Vol] 33.5 g/dL Normal 29.9-35.2 [facility] Comment on above: Performed By: #### C BC ####[facility] [address] [place], [place] [address]Dr. Silvino Clifton MCV (RBC) [Entitic vol] 83.6 fL Normal 81.0-99.0 [facility] Comment on above: Performed By: #### C BC ####[facility] [address] [place], [place] [address]Dr. Silvino Clifton MONO # 0.4 103/ul Normal 0.3-0.8 [facility] Comment on above: Performed By: #### C BC ####[facility] [address] [place] [address]Dr. Silvino Clifton Monocytes/100 WBC (Bld) 7.2 % Normal 1.7-12.0 [facility] Comment on above: Performed By: #### C BC ####[facility] [address] [place], [place] [address]Dr. Silvino Clifton NEUT # 3.3 103/ul Normal 1.4-6.5 [facility] Comment on above: Performed By: #### C BC ####[facility] [address] [place], [place] [address]Dr. Silvino Clifton Neutrophils/100 WBC (Bld) 54.3 % Normal 43.0-75.0 [facility] Comment on above: Performed By: #### C BC ####[facility] [address] [place] [id number]. Silvino Clifton Platelet mean volume (Bld) [Entitic vol] 11.3 fL Normal 9.5-13.5 [facility] Comment on above: Performed By: #### C BC ####[facility] [address] [place] [address]Dr. Silvino Clifton PLT 208 103/ul Normal 150-450 [facility] Comment on above: Performed By: #### C BC ####[facility] [address] [place] [id number]. Silvino Clifton RBC 4.57 106/ul Normal 4.20-5.40 [facility] Comment on above: Performed By: #### C BC ####[facility] [address] [place] [address]DrNatividad Clifton WBC 6.2 103/ul Normal 4.0-11.0 [facility] Comment on above: Performed By: #### C BC ####[facility] [address] [place] [id number]. Silvino Clifton GLYCOHEMOGLOBIN A1Con 2022 ADA RECOMMENDATION SEE BELOW Normal [facility] Comment on above: Result Comment: ADA RECOMMENDED LIMIT 4.0 - 6.0 ADA THERAPEUTIC TARGET < 7.0 ACTION SUGGESTED > 7.0 Performed By: #### A 1C #### [facility] [address] [place] [address] [address] Silvino Clifton Glucose [Mass/Vol] 169 mg/dL Normal [facility] Comment on above: Performed By: #### A 1C #### [facility] [address] [place] [address] [address] Silvino Clifton HbA1c (Bld) [Mass fraction] 7.5 % Critically high 4.5-6.2 [facility] Comment on above: Performed By: #### A 1C #### [facility] [address] [place] [address] [address] Silvino Clifton LIPID PROFILEon 03-22-2023 CHOL-HDL RATIO NORM SEE BELOW Normal [facility] Comment on above: Result Comment: 3.3 - 4.4 LOW RISK 4.4 - 7.1 AVERAGE RISK 7.1 - 11.0 MODERATE RISK >11.0 HIGH RISK Performed By: #### M Charlotte, CMP, LIPID ####[facility] [address] [place], [place] [address]Os. Silvino Clitfon Cholesterol [Mass/Vol] 185 mg/dL Normal <=200 [facility] Comment on above: Performed By: #### M Charlotte, CMP, LIPID ####[facility] [address] [place], [place] [address]Fu. Silvino Clifton Cholesterol in HDL [Mass/Vol] 58 mg/dL Normal 40-60 [facility] Comment on above: Performed By: #### M Charlotte, CMP, LIPID ####[facility] [address] [place], [place] [address]Kz. Suzyoriana Clifton Cholesterol in LDL [Mass/Vol] 95.4 mg/dL Normal [facility] Comment on above: Performed By: #### M Charlotte, CMP, LIPID ####[facility] [address] [place], [place] [address]In. Silvino Clifton Cholesterol.total/Ch olesterol in HDL [Mass ratio] 3.2 {ratio} Normal [facility] Comment on above: Performed By: #### M G, CMP, LIPID ####[facility] [address] [place], [place] [address]Pm. Suzylan Clifton HDL NORMAL > or = 60 mg/dl - LO W CARDIOVASCULAR RISK <40 mg/dl - HIGH CARDIOVASCULAR RISK Normal [facility] Comment on above: Performed By: #### M G, CMP, LIPID ####[facility] [address] [place], [place] [address]Kt. Silvino [place] LDL CALC NORMAL SEE BELOW Normal [facility] Comment on above: Result Comment: <100 mg/dl OPTIMAL 100 - 129 mg/dl NEAR OR ABOVE OPTIMAL 130 - 159 mg/dl BORDERLINE HIGH 160 - 189 mg/dl HIGH >190 mg/dl VERY HIGH Performed By: #### M G, CMP, LIPID ####[facility] [address]dfucl[address]bc[address] [place] [address]Dr. Silvino [place] Triglyceride [Mass/Vol] 158 mg/dL Critically high <=150 [facility] Comment on above: Performed By: #### M G, CMP, LIPID ####[facility] Sthzmrotqz[address] [place] [address]Dr. Silvino [place] VLDL CALC 31.6 mg/dL Normal [facility] Comment on above: Performed By: #### M G, CMP, LIPID ####[facility] Cxjtvagbfs[address] [place] [address]Dr. Silvino [place] MAGNESIUMon 08-12-2022 Magnesium [Mass/Vol] 1.6 mg/dL Critically low 1.8-2.4 [facility] Comment on above: Performed By: #### M G, CMP, LIPID ####[facility] Osfmaggtlf[address] [place] [address]Dr. Silvino [place] PROF 14(COMP METB)on 023 Albumin [Mass/Vol] 4.0 g/dL Normal 3.4-5.0 [facility] Comment on above: Performed By: #### M G, CMP, LIPID ####[facility] Puizeunfvx[address] [place] [address]Dr. Silvino [place] Albumin/Globulin [Mass ratio] 1.2 {ratio} Normal [facility] Comment on above: Performed By: #### M G, CMP, LIPID ####[facility] Jakancgqiz32[address] [place] [address]Dr. Silvino [place] ALP [Catalytic activity/Vol] 61 U/L Normal 46-116 [facility] Comment on above: Performed By: #### M G, CMP, LIPID ####[facility] [address]fszfkoybc[address] [place] [address]Dr. Silvino [place] ALT [Catalytic activity/Vol] 17 U/L Normal 14-59 [facility] Comment on above: Performed By: #### M G, CMP, LIPID ####[facility] Ifmwpmrpna7[address] [place] [address]Dr. Silvino [place] Anion gap [Moles/Vol] 11.8 mmol/L Normal [facility] Comment on above: Performed By: #### M G, CMP, LIPID ####[facility] Jajsfpbvab[address] [place] [address]Dr. Silvino [place] AST [Catalytic activity/Vol] 16 U/L Normal 15-37 [facility] Comment on above: Performed By: #### M G, CMP, LIPID ####[facility] Vwxvzkkmsw[address] [place] [address]Dr. Silvino [place] Bilirubin [Mass/Vol] 0.4 mg/dL Normal 0.2-1.0 [facility] Comment on above: Performed By: #### M G, CMP, LIPID ####[facility] Wbpsqmhriq[address] [place] [address]Dr. Silvino [place] Calcium [Mass/Vol] 9.3 mg/dL Normal 8.5-10.1 [facility] Comment on above: Performed By: #### M G, CMP, LIPID ####[facility] Yzkrvxgotk[address] [place] [address]Dr. Silvino [place] Chloride [Moles/Vol] 106 mmol/L Normal 98-107 [facility] Comment on above: Performed By: #### M G, CMP, LIPID ####[facility] [address] [place], [place] [address]Dr. Silvino [place] CO2 [Moles/Vol] 28.3 mmol/L Normal 21.0-32.0 [facility] Comment on above: Performed By: #### M G, CMP, LIPID ####[facility] Oqtkzzltjm030[address] [place] [address]Dr. Silvino [place] Creatinine [Mass/Vol] 0.72 mg/dL Normal 0.55-1.02 [facility] Comment on above: Performed By: #### M G, CMP, LIPID ####[facility] Jpavsqzaxk[address] [place] [address]Dr. Silvino [place] EGFR-AF THAI >60 Normal >=60 [facility] Comment on above: Performed By: #### M G, CMP, LIPID ####[facility] Lrjwkguavz[address] [place] [address]Dr. Silvino [place] EGFR-NON AF THAI >60 Normal >=60 [facility] Comment on above: Performed By: #### M G, CMP, LIPID ####[facility] Nmsoomahdl[address] [place] [address]Dr. Silvino [place] Globulin (S) [Mass/Vol] 3.3 g/dL Normal [facility] Comment on above: Performed By: #### M G, CMP, LIPID ####[facility] Svdavdxutg09[address] [place] [address]Dr. Silvino [place] Glucose [Mass/Vol] 167 mg/dL Critically high 74-106 [facility] Comment on above: Performed By: #### M Charlotte, CMP, LIPID ####[facility] Uoilbzewpb17[address] [place] [address]Dr. Silvino [place] Potassium [Moles/Vol] 4.1 mmol/L Normal 3.5-5.1 [facility] Comment on above: Performed By: #### M G, CMP, LIPID ####[facility] Xplkbcarwh[address] [place] [address]Dr. Silvino [place] Protein [Mass/Vol] 7.3 g/dL Normal 6.4-8.2 [facility] Comment on above: Performed By: #### M Charlotte, CMP, LIPID ####[facility] [address]okwvzflor[address] [place] [address]Dr. Silvino [place] Sodium [Moles/Vol] 142 mmol/L Normal 136-145 [facility] Comment on above: Performed By: #### M G, CMP, LIPID ####[facility] Uzkglmiiig[address] [place] [address]Dr. Silvino [place] Urea nitrogen [Mass/Vol] 13.0 mg/dL Normal 7.0-18.0 [facility] Comment on above: Performed By: #### M G, CMP, LIPID ####[facility] Urxbtadcxq[address] [place] [address]Dr. Silvino [place] Urea nitrogen/Creatinine [Mass ratio] 18.1 mg/mg Normal [facility] Comment on above: Performed By: #### M G, CMP, LIPID ####[facility] [address]bokm[address] [place], [place] [address]LrNatividad [place] XR LSPINE 2_3 VIEWSon 2022 XR [...] No appreciable acute abnormality. Electronically authenticated by: KYLIE MENON Date: 2022-08-12 09:32 Normal [facility] XR DEXA BONE DENSITYon [...] - Moderate Fracture Risk Electronically authenticated by: KYLIE MENON Date: 2022-08-11 13:51 Normal [facility] CT CSPINE WO CONon 2 CT CSPINE WO CON EXAM: CT CSPINE [...] JOSE M JESUS Date: 2022-03-09 11:40 Normal [facility] CT HEAD WO CONon [...] JOSE M JESUS Date: 2022-03-09 11:29 Normal [facility] PAP ACOG PANEL 2: 30 to 65on 01-30-2022 . . Normal [facility] Comment on above: Performed By: #### [id number] ####[facility] Bjkfvajcyp44[address] [place], [place] [address]MhNatividad Silvino Etienne Age Gdln ACOG Testing Comment Normal [facility] Comment on above: Result Comment: <21 or >65 or no age provided Performed By: #### 4 [id number] ####[facility] Ogysdekwsf[address] [place], [place] [address]Dr. Silvino Cl[place] DIAGNOSIS: Comment Normal [facility] Comment on above: Result Comment: NEGA TIVE FOR INTRAEPITHELIAL LESION OR MALIGNANCY. CELLULAR CHANGES ASSOCIATED WITH ATROPHY ARE PRESENT. Performed By: #### 4 [id number] ####[facility] Rsg[address]tl[address] [place], [place] [address]Dr. Silvino Cl[place] Methodology: Comment Normal [facility] Comment on above: Result Comment: This liquid based ThinPrep(R) pap test was screened with the use of an image guided system. Performed By: #### 4 [id number] ####[facility] Naphpnfqra[address] [place], [place] [address]Dr. Silvino Cl[place] Note: Comment Normal [facility] Comment on above: Result Comment: The Pap smear is a screening test designed to aid in the detection of premalignant and malignant conditions of the uterine cervix. It is not a diagnostic procedure and should not be used as the sole means of detecting cervical cancer. Both false-positive and false-negative reports do occur. . Performed By: #### 4 [id number] ####[facility] Hmoznjvdlg[address] [place], [place] [address]Dr. Silvino Cl[place] Performed by: Comment Normal [facility] Comment on above: Result Comment: Isabel Gong, Shell Plater (ASCP) Performed By: #### 4 [id number] ####[facility] Kiwkgdlesu[address] [place], [place] [address]Dr. Silvino [place] Specimen adequacy: Comment Normal [facility] Comment on above: Result Comment: Sati sfactory for evaluation. Performed By: #### 4 [id number] ####[facility] [address]zvnvfy[address] [place], [place] [address]Dr. Silvino [place] BASIC METABOLIC PANELon 07-0 BUN/CREATININE RATIO NOT APPLICABLE Normal 6-22 [facility] Comment on above: Order Comment: FASTI NG:YES FASTING: YES Performed By: #### 1 5486, 336 #### [facility] [address], [address] [place] [address] Field Hauler: Scott Nichols MD Calcium [Mass/Vol] 9.6 mg/dL Normal 8.6-10.4 [facility] Comment on above: Order Comment: FASTI NG:YES FASTING: YES Performed By: #### 1 0165, 496 #### [facility] [address], [address] [place] [address] Field Hauler: Scott Nichols MD Chloride [Moles/Vol] 104 mmol/L Normal 98-110 [facility] Comment on above: Order Comment: FASTI NG:YES FASTING: YES Performed By: #### 1 0165, 496 #### [facility] [address], [address] [place] [address] Field Hauler: Scott Nichols MD CO2 [Moles/Vol] 31 mmol/L Normal 20-32 [facility] Comment on above: Order Comment: FASTI NG:YES FASTING: YES Performed By: #### 1 0165, 496 #### [facility] [place] [address] Field Hauler: Scott Nichols MD Creatinine [Mass/Vol] 0.64 mg/dL Normal 0.60-0.93 [facility] Comment on above: Order Comment: FASTI NG:YES FASTING: YES Result Comment: For patients >49 years of age, the reference limit for Creatinine is approximately 13% higher for people identified as -Mozambican. Performed By: #### 1 0165, 496 #### [facility] [place] [address] Field Hauler: Scott Nichols MD eGFR NON-AFR. THAI 90 mL/min/1.73m2 Normal > OR = 60 [facility] Comment on above: Order Comment: FASTI NG:YES FASTING: YES Performed By: #### 1 0165, 496 #### [facility] [place] [address] Field Hauler: Scott Nichols MD GFR/1.73 sq M.predicted among blacks MDRD (S/P/Bld) [Vol rate/Area] 105 mL/min/{1.73_m2} Normal > OR = 60 [facility] Comment on above: Order Comment: FASTI NG:YES FASTING: YES Performed By: #### 1 0165, 496 #### [facility] [address], [address] [place] [address] Field Hauler: Scott Nichols MD Glucose [Mass/Vol] 136 mg/dL High 65-99 [facility] Comment on above: Order Comment: FASTI NG:YES FASTING: YES Result Comment: Fasting reference interval For someone without known diabetes, a glucose value >125 mg/dL indicates that they may have diabetes and this should be confirmed with a follow-up test. Performed By: #### 1 0165, 496 #### [facility] [place] [address] Field Hauler: Scott Nichols MD Potassium [Moles/Vol] 4.3 mmol/L Normal 3.5-5.3 [facility] Comment on above: Order Comment: FASTI NG:YES FASTING: YES Performed By: #### 1 0165, 496 #### [facility] [address], [address] [place] [address] Field Hauler: Scott Nichols MD Sodium [Moles/Vol] 141 mmol/L Normal 135-146 [facility] Comment on above: Order Comment: FASTI NG:YES FASTING: YES Performed By: #### 1 0165, 496 #### [facility] [address], [address] [place] [address] Field Hauler: Scott Nichols MD Urea nitrogen [Mass/Vol] 9 mg/dL Normal 7-25 [facility] Comment on above: Order Comment: FASTI NG:YES FASTING: YES Performed By: #### 1 0165, 496 #### [facility] [place] [address] Field Hauler: Scott Nichols MD HEMOGLOBIN A1con 11-27-2021 HEMOGLOBIN A1c 7.4 % of total Hgb High <5.7 [facility] Comment on above: Result Comment: [...] #### 1 0165, 496 #### [facility] [address] [facility], [address] [place] [address] Field Hauler: Scott Nichols MD URINALYSISOrdered By: Aggie Giron [...] AM) Normal Negative [facility] UA Auto SS Celada.plasma/Lithi um.RBC (Bld) [Mass ratio] 0-3 /HPF Normal [...] AM) Invalid Interpretation Code 1.005 - 1.030 [facility] UA Auto SS UA Spec Desc Clean Catch (11/26/21 10:54 AM) Normal [facility] UA Auto SS Urobilinogen Qn (U) [id number] {Tyrell'U}/dL Normal 0.0 - 1.0 EU/dL [facility] [place] UA Auto SS WBC Auto Ql (U) Negative (11/26/21 10:54 AM) Normal Negative [facility] [place] UA Auto SS WBC LM.HPF (Urine sed) [#/Area] 0-5 /HPF Normal 0-5/HPF [facility] [place] UA Auto SS CT ABD/PELVIS WO CONon [...] LOBITO YEE Date: 2021-11-24 01:04 Normal [facility] CBC AUTO DIFFon 11-12-2021 BASO # 0.1 103/ul Normal 0.0-0.1 [facility] Comment on above: Performed By: #### C BC ####[facility] [address] [place] [id number] [place] Basophils/100 WBC (Bld) 0.6 % Normal 0.2-2.0 [facility] Comment on above: Performed By: #### C BC ####[facility] [address]wazteg[address] [place] [id number] [place] EO # 0.1 103/ul Normal 0.0-0.7 [facility] Comment on above: Performed By: #### C BC ####[facility] Lzdecumdet5587 [place] [id number] [place] Eosinophils/100 WBC (Bld) 1.3 % Normal 0.9-7.0 [facility] Comment on above: Performed By: #### C BC ####[facility] Vrtiqlaudx26[address] [place] [address]Dr. Silvino [place] Erythrocyte distribution width (RBC) [Ratio] 11.9 % Normal 11.0-15.0 [facility] Comment on above: Performed By: #### C BC ####[facility] Wtbnijouyq[address] [place], [place] [address]Dr. Silvino Cl[place] Hematocrit (Bld) [Volume fraction] 37.6 % Normal 36.0-48.0 [facility] Comment on above: Performed By: #### C BC ####[facility] [address]xbonjv[address] [place], [place] [address]Dr. Silvino Cl[place] Hemoglobin (Bld) [Mass/Vol] 13.0 g/dL Normal 12.0-16.0 [facility] Comment on above: Performed By: #### C BC ####[facility] [address]vaklfby[address] [place], [place] [address]Dr. Silvino Clifton IG # 0.04 10e3/ul Critically high 0.00-0.03 [facility] Comment on above: Performed By: #### C BC ####[facility] Qdcndgihbq[address] [place], [place] [address]Dr. Silvino Cl[place]ton IG % 0.5 % Normal 0.0-0.5 [facility] Comment on above: Performed By: #### C BC ####[facility] Svgzenjcwg[address] [place], [place] [address]Dr. Silvino Cl[place]ton LYMPH # 1.5 103/ul Normal 1.2-3.8 [facility] Comment on above: Performed By: #### C BC ####[facility] Onikcirynx[address] [place], [place] [address]Dr. Silvino Cl[place] Lymphocytes/100 WBC (Bld) 18.9 % Critically low 20.5-60.0 [facility] Comment on above: Performed By: #### C BC ####[facility] Jdnjcifcih[address] [place], [place] [address]Dr. Silvino Cl[place] MANUAL DIFF REQ NO Normal [facility] Comment on above: Performed By: #### C BC ####[facility] Ekrhtcgksd4[address] [place] [address]Dr. Silvino Etienne MCH (RBC) [Entitic mass] 29.7 pg Normal 26.7-34.0 [facility] Comment on above: Performed By: #### C BC ####[facility] [address]hjlvtocsk[address] [place] [address]Dr. Silvino Etienne MCHC (RBC) [Mass/Vol] 34.6 g/dL Normal 29.9-35.2 [facility] Comment on above: Performed By: #### C BC ####[facility] Rxfyxpmgmf[address] [place] [address]Dr. Silvino Cl[place] MCV (RBC) [Entitic vol] 85.8 fL Normal 81.0-99.0 [facility] Comment on above: Performed By: #### C BC ####[facility] [address]qojqytyhe[address] [place] [address]Dr. Silvino Cl[place] MONO # 0.5 103/ul Normal 0.3-0.8 [facility] Comment on above: Performed By: #### C BC ####[facility] Tlrzegbqpj[address] [place] [address]Dr. Silvino Cl[place] Monocytes/100 WBC (Bld) 6.1 % Normal 1.7-12.0 [facility] Comment on above: Performed By: #### C BC ####[facility] [address]psmcphed[address] [place] [address]DrNatividad [place] NEUT # 5.8 103/ul Normal 1.4-6.5 [facility] Comment on above: Performed By: #### C BC ####[facility] [address]ovoio[address] [place] [address]DrNatividad [place] Neutrophils/100 WBC (Bld) 72.6 % Normal 43.0-75.0 [facility] Comment on above: Performed By: #### C BC ####[facility] [address]ifyfnny[address] [place], [place] [address]Dr. Silvino Cl[place] Platelet mean volume (Bld) [Entitic vol] 10.7 fL Normal 9.5-13.5 [facility] Comment on above: Performed By: #### C BC ####[facility] [address]br[address] [place], [place] [address]Bf. Silvino Cl[place]ton PLT 182 103/ul Normal 150-450 [facility] Comment on above: Performed By: #### C BC ####[facility] Dhoodcytac[address] [place] [phone]. Silvino [place] RBC 4.38 106/ul Normal 4.20-5.40 [facility] Comment on above: Performed By: #### C BC ####[facility] Whotmeiegq23[address] [place] [phone]. Silvino Cl[place] WBC 8.0 103/ul Normal 4.0-11.0 [facility] Comment on above: Performed By: #### C BC ####[facility] G[address]uesbtgn[address] [place] [phone]. Silvino Cl[place] CT HEAD WO CONon 11-12-2021 [...] RAYNE JOHNSON Date: 2021-11-12 05:04 Normal [facility] ER URINE PROFILEon 2 Bilirubin Ql (U) Negative Normal NEGATIVE [facility] Comment on above: Performed By: #### U MICRO, ERUR #### [facility] Laboratory [address] [place], [place] [address] Dr. Silvino Cl[place] Clarity (U) CLEAR Normal CLEAR [facility] Comment on above: Performed By: #### U MICRO, ERUR #### [facility] Laboratory [address] [place] [address] [address] Silvino Clif[place] Color (U) LT. YELLOW Normal YELLOW [facility] Comment on above: Performed By: #### U MICRO, ERUR #### [facility] Laboratory [address] [place] [address] [address] Silvino Cl[place]ton ERUAHD A micrscopic examina tion will be performed if indicated. Normal [facility] Comment on above: Performed By: #### U MICRO, ERUR #### [facility] Laboratory [address] [place] [address] [address] Silvino Clifton Glucose Ql (U) Negative Normal NEGATIVE [facility] Comment on above: Performed By: #### U MICRO, ERUR #### [facility] Laboratory [address] [place] [address] Dr. Silvino Clifton Hemoglobin Ql (U) SMALL Abnormal NEGATIVE [facility] Comment on above: Performed By: #### U MICRO, ERUR #### [facility] Laboratory [address] [place] [address] [address] Silvino Clifton Ketones Ql (U) Negative Normal NEGATIVE [facility] Comment on above: Performed By: #### U MICRO, ERUR #### [facility] Laboratory [address] [place] [address] Dr. Silvino Cl[place]ton LEUKOCYTES Negative Normal NEGATIVE [facility] Comment on above: Performed By: #### U MICRO, ERUR #### [facility] Laboratory [address] [place] [address] [address] Silvino Clifton Nitrite Ql (U) Negative Normal NEGATIVE [facility] Comment on above: Performed By: #### U MICRO, ERUR #### [facility] Laboratory [address] [place] [address] [address] Silvino Clifton pH (U) 7.0 [pH] Normal 5-9 [facility] Comment on above: Performed By: #### U MICRO, ERUR #### [facility] Laboratory [address] [place] [address] Dr. Silvino Clifton SPEC GRAVITY <=1.005 Abnormal 1.005-<=1.0 25 [facility] Comment on above: Performed By: #### U MICRO, ERUR #### [facility] Laboratory [address] [place] [address] [address] Silvino Clifton UA PROTEIN Negative Normal NEGATIVE/ TRACE [facility] Comment on above: Performed By: #### U MICRO, ERUR #### [facility] Laboratory [address] [place] [address] [address] Silvino Clifton UR MICRO IND INDICATED Normal [facility] Comment on above: Performed By: #### U MICRO, ERUR #### [facility] Laboratory [address] [place] [address] [address] Silvino Clifton Urobilinogen Qn (U) 0.2 {Tyrell'U}/dL Normal 0.2 - 1. 0 [facility] Comment on above: Performed By: #### U MICRO, ERUR #### [facility] Laboratory [address] [place] [address] Dr. Silvino Clifton PROF 14(COMP METB)on 022 Albumin [Mass/Vol] 4.2 g/dL Normal 3.4-5.0 [facility] Comment on above: Performed By: #### C MAGGIE HSTROPN ####[facility] [address] [place] [address]DrNatividad [place]ton Albumin/Globulin [Mass ratio] 1.2 {ratio} Normal [facility] Comment on above: Performed By: #### C MAGGIE HSTROPN ####[facility] [address]jf[address] [place] [address]DrNatividad [place]ton ALP [Catalytic activity/Vol] 65 U/L Normal 46-116 [facility] Comment on above: Performed By: #### C MAGGIE HSTROPN ####[facility] [address] [place] [address]DrNatividad [place] ALT [Catalytic activity/Vol] 21 U/L Normal 14-59 [facility] Comment on above: Performed By: #### C MAGGIE HSTROPN ####[facility] [address]akaj[address] [place] [phone]. Silvino Clif[place] Anion gap [Moles/Vol] 12.5 mmol/L Normal [facility] Comment on above: Performed By: #### C MAGGIE, HSTROPN ####[facility] [address] [place] [address]Dr. Silvino Clifton AST [Catalytic activity/Vol] 17 U/L Normal 15-37 [facility] Comment on above: Performed By: #### C MAGGIE, HSTROPN ####[facility] [address] [place] [address]Dr. Silvino Clifton Bilirubin [Mass/Vol] 0.5 mg/dL Normal 0.2-1.0 [facility] Comment on above: Performed By: #### C MAGGIE, HSTROPN ####[facility] [address] [place] [address]Dr. Suzyoriana Clifton Calcium [Mass/Vol] 9.0 mg/dL Normal 8.5-10.1 [facility] Comment on above: Performed By: #### C MAGGIE, HSTROPN ####[facility] [address] [place] [address]Dr. Silvino Clifton Chloride [Moles/Vol] 100 mmol/L Normal 98-107 [facility] Comment on above: Performed By: #### C MAGGIE, HSTROPN ####[facility] [address] [place] [address]Dr. Silvino Clifton CO2 [Moles/Vol] 26.8 mmol/L Normal 21.0-32.0 [facility] Comment on above: Performed By: #### C MAGGIE, HSTROPN ####[facility] [address] [place] [address]Dr. Silvino Clifton Creatinine [Mass/Vol] 0.71 mg/dL Normal 0.55-1.02 [facility] Comment on above: Performed By: #### C MAGGIE, HSTROPN ####[facility] [address] [place] [address]Dr. Suzyoriana Clifton EGFR-AF THAI >60 Normal >=60 [facility] Comment on above: Performed By: #### C MAGGIE, HSTROPN ####[facility] [address] [place] [address]Dr. Silvino Clifton EGFR-NON AF THAI >60 Normal >=60 [facility] Comment on above: Performed By: #### C MAGGIE, HSTROPN ####[facility] [address] [place] [address]Dr. Silvino Clifton Globulin (S) [Mass/Vol] 3.4 g/dL Normal [facility] Comment on above: Performed By: #### C MAGGIE, HSTROPN ####[facility] [address] [place] [address]Dr. Silvino Clifton Glucose [Mass/Vol] 185 mg/dL Critically high 74-106 [facility] Comment on above: Performed By: #### C MAGGIE, HSTROPN ####[facility] [address] [place] [address]Dr. Suzyoriana Clifton Potassium [Moles/Vol] 3.3 mmol/L Critically low 3.5-5.1 [facility] Comment on above: Performed By: #### C MAGGIE, HSTROPN ####[facility] [address] [place], [place] [address]Dr. Silvino Clifton Protein [Mass/Vol] 7.6 g/dL Normal 6.4-8.2 [facility] Comment on above: Performed By: #### C MAGGIE, HSTROPN ####[facility] [id number] [place], [place] [address]Dr. Silvino Clifton Sodium [Moles/Vol] 136 mmol/L Normal 136-145 [facility] Comment on above: Performed By: #### C MAGGIE, HSTROPN ####[facility] [id number] [place], [place] [address]Dr. Silvino Clifton Urea nitrogen [Mass/Vol] 10.0 mg/dL Normal 7.0-18.0 [facility] Comment on above: Performed By: #### C MAGGIE, HSTROPN ####[facility] [address] [place] [id number]. Silvino Clifton Urea nitrogen/Creatinine [Mass ratio] 14.1 mg/mg Normal [facility] Comment on above: Performed By: #### C MP, HSTROPN ####[facility] [address] [place] [address]Dr. Silvino Clifton TROPONIN, HIGH SENSITIVITYon 11-12-2021 HSTROP 25.0 pg/mL Normal 4.0-51.3 [facility] Comment on above: Result Comment: CUT- OFF POINTS HAVE BEEN ESTABLISHED BASED ON THE FOURTH UNIVERSAL DEFINITIONS OF MYOCARDIAL INFARCTION. THE UPPER REFERENCE LIMIT (URL) OF TROPONIN, DEFINED THE 99TH PERCENTILE OF cTnI DISTRIBUTION IN A REFERENCE POPULATION, HAS BEEN CONFIRMED THE DECISION THRESHOLD FOR IN DIAGNOSIS. Performed By: #### C MAGGIE, HSTROPN #### [facility] [address] [place] [address] Dr. Silvino Clifton URINE MICROSCOPIC ONLYon BACTERIA NONE SEEN Normal NONE SEEN [facility] Comment on above: Performed By: #### U MICRO, ERUR #### [facility] [address] [place] [address] Dr. Silvino Clifton Bacteria identified Cx Nom (U) NOT INDICATED Normal [facility] Comment on above: Performed By: #### U MICRO, ERUR #### [facility] [address] [place] [address] Dr. Silvino Clifton CAST NONE SEEN Normal NONE SEEN [facility] Comment on above: Performed By: #### U MICRO, ERUR #### [facility] [address] [address] [address] Silvino Clifton Crystals LM Nom (Urine sed) NONE SEEN Normal NONE SEEN [facility] Comment on above: Performed By: #### U MICRO, ERUR #### [facility] [address] [place] [address] Dr. Silvino Clifton Epithelial cells LM Ql (Urine sed) RARE Normal NONE SEEN /RARE [facility] Comment on above: Performed By: #### U MICRO, ERUR #### [facility] [address] [place] [address] Dr. Silvino Clifton MUCOUS NONE SEEN Normal NONE SEEN [facility] Comment on above: Performed By: #### U MICRO, ERUR #### [facility] [address] [address] [address] Silvino Clifton RBC 2-5 Abnormal 0-2 [facility] Comment on above: Performed By: #### U MICRO, ERUR #### [facility] [address] [address] [address] Silvino Clifton WBC NONE SEEN Normal NONE SEEN [facility] Comment on above: Performed By: #### U MICRO, ERUR #### [facility] [address] [address] [address] Silvino Clifton CBC (INCLUDES DIFF/PLT)on Basophils (Bld) [#/Vol] 0.041 10*3/uL Normal 0-200 [facility] Comment on above: Performed By: #### 6 399, 622, 927 #### [facility] [place] [address] Field Hauler: Scott Nichols MD Basophils/100 WBC (Bld) 0.7 % Normal [facility] Comment on above: Performed By: #### 6 399, 622, 927 #### [facility] [place] [address] Field Hauler: Scott Nichols MD Eosinophils (Bld) [#/Vol] 0.077 10*3/uL Normal 15-500 [facility] Comment on above: Performed By: #### 6 399, 622, 927 #### [facility] [place] [address] Field Hauler: Scott Nichols MD Eosinophils/100 WBC (Bld) 1.3 % Normal [facility] Comment on above: Performed By: #### 6 399, 622, 927 #### [facility] [place] [address] Field Hauler: Scott Nichols MD Erythrocyte distribution width (RBC) [Ratio] 12.3 % Normal 11.0-15.0 [facility] Comment on above: Performed By: #### 6 399, 622, 927 #### [facility] [place] [address] Field Hauler: Scott Nichols MD Hematocrit (Bld) [Volume fraction] 40.2 % Normal 35.0-45.0 [facility] Comment on above: Performed By: #### 6 399, 622, 927 #### [facility] [place] [address] Field Hauler: Scott Nichols MD Hemoglobin (Bld) [Mass/Vol] 13.8 g/dL Normal 11.7-15.5 [facility] Comment on above: Performed By: #### 6 399, 622, 927 #### [facility] [place] [address] Field Hauler: Scott Nichols MD Lymphocytes (Bld) [#/Vol] 1.682 10*3/uL Normal 850-3900 [facility] Comment on above: Performed By: #### 6 399, 622, 927 #### [facility] [place] [address] Field Hauler: Scott Nichols MD Lymphocytes/100 WBC (Bld) 28.5 % Normal [facility] Comment on above: Performed By: #### 6 399, 622, 927 #### [facility] [place] [address] Field Hauler: Scott Nichols MD MCH (RBC) [Entitic mass] 29.9 pg Normal 27.0-33.0 [facility] Comment on above: Performed By: #### 6 399, 622, 927 #### [facility] [place] [address] Field Hauler: Scott Nichols MD MCHC (RBC) [Mass/Vol] 34.3 g/dL Normal 32.0-36.0 [facility] Comment on above: Performed By: #### 6 399, 622, 927 #### [facility] of [place] [address] Field Hauler: Scott Nichols MD MCV (RBC) [Entitic vol] 87.0 fL Normal 80.0-100.0 [facility] Comment on above: Performed By: #### 6 399, 622, 927 #### [facility] of [place] [address] Field Hauler: Scott Nichols MD Monocytes (Bld) [#/Vol] 0.407 10*3/uL Normal 200-950 [facility] Comment on above: Performed By: #### 6 399, 622, 927 #### [facility] [place] [address] Field Hauler: Scott Nichols MD Monocytes/100 WBC (Bld) 6.9 % Normal [facility] Comment on above: Performed By: #### 6 399, 622, 927 #### [facility] [place] [address] Field Hauler: Scott Nichols MD Neutrophils (Bld) [#/Vol] 3.693 10*3/uL Normal 7984-9586 [facility] Comment on above: Performed By: #### 6 399, 622, 927 #### [facility] [place] [address] Field Hauler: Scott Nichols MD Neutrophils/100 WBC (Bld) 62.6 % Normal [facility] Comment on above: Performed By: #### 6 399, 622, 927 #### [facility] [place] [address] Field Hauler: Scott Nichols MD Platelet mean volume (Bld) [Entitic vol] 11.9 fL Normal 7.5-12.5 [facility] Comment on above: Performed By: #### 6 399, 622, 927 #### [facility] [place] [address] Field Hauler: Scott Nichols MD Platelets (Bld) [#/Vol] 195 10*3/uL Normal 140-400 [facility] Comment on above: Performed By: #### 6 399, 622, 927 #### [facility] [place] [address] Field Hauler: Scott Nichols MD RBC (Bld) [#/Vol] 4.62 10*6/uL Normal 3.80-5.10 [facility] Comment on above: Performed By: #### 6 399, 622, 927 #### [facility] [place] [address] Field Hauler: Scott Nichols MD WBC (Bld) [#/Vol] 5.9 10*3/uL Normal 3.8-10.8 [facility] Comment on above: Performed By: #### 6 399, 622, 927 #### [facility] [place] [address] Field Hauler: Scott Nichols MD MAGNESIUMon 09-10-2021 Magnesium [Mass/Vol] 1.7 mg/dL Normal 1.5-2.5 [facility] Comment on above: Order Comment: FASTI NG:UNKNOWN FASTING: UNKNOWN Performed By: #### 6 399, 622, 927 #### [facility] [place] [address] Field Hauler: Scott Nichols MD VITAMIN B12on 09-10-2021 Cobalamin [...] 6 399, 622, 927 #### [facility] [place] [address] Field Hauler: Scott Nichols MD ALBUMIN, RANDOM URINE W/CREA NAZon 07-29-2021 ALBUMIN, URINE 2.6 mg/dL Normal See Note: [facility] Comment on above: Result Comment: Melchor wren Range: Reference Range Not established Performed By: #### 1 0231, 0, 6517 #### [facility] [address], [address] [place] [address] Field Hauler: Scott Nichols MD ALBUMIN/CREATININE RATIO, RANDOM URINE [...] a diagnostic category. Performed By: #### 1 023, 7599, 6517 #### [facility] [address], [address] [place] [address] Field Hauler: Scott Nichols MD Creatinine (U) [Mass/Vol] 53 mg/dL Normal 20-275 [facility] Comment on above: Performed By: #### 1 023, 7599, 6517 #### [facility] [place] [address] Field Hauler: Scott Nichols MD COMPREHENSIVE METABOLIC PANE [facility] 07-29-2021 Albumin [Mass/Vol] 4.6 g/dL Normal 3.6-5.1 [facility] Comment on above: Performed By: #### 1 023, 0, 6517 #### [facility] of [address], [address] [place] [address] Field Hauler: Scott Nichols MD Albumin/Globulin [Mass ratio] 1.6 {ratio} Normal 1.0-2.5 [facility] Comment on above: Performed By: #### 1 023, 7599, 6517 #### [facility] [address], [address] [place] [address] Field Hauler: Scott Nichols MD ALP [Catalytic activity/Vol] 55 U/L Normal 37-153 [facility] Comment on above: Performed By: #### 1 0231, 7600, 6517 #### [facility] of [address], [address] [place] [address] Field Hauler: Scott Nichols MD ALT [Catalytic activity/Vol] 11 U/L Normal 6-29 [facility] Comment on above: Result Comment: NO C OLLECTION DATE RECEIVED. WE HAVE USED THE DATE THE SPECIMEN WAS RECEIVED BY THIS LABORATORY THE COLLECTION DATE. IF THIS IS INCORRECT, PLEASE CONTACT CLIENT SERVICES. PHONE NUMBER: [phone] Performed By: #### 1 0231, 7600, 6517 #### [facility] [place] [address] Field Hauler: Scott Nichols MD AST [Catalytic activity/Vol] 11 U/L Normal 10-35 [facility] Comment on above: Performed By: #### 1 0231, 0, 6517 #### [facility] of [address], [address] [place] [address] Field Hauler: Scott Nichols MD Bilirubin [Mass/Vol] 0.6 mg/dL Normal 0.2-1.2 [facility] Comment on above: Performed By: #### 1 0231, 0, 6517 #### [facility] [place] [address] Field Hauler: Scott Nichols MD BUN/CREATININE RATIO NOT APPLICABLE Normal 6-22 [facility] Comment on above: Performed By: #### 1 0231, 0, 6517 #### [facility] of [address], [address] [place] [address] Field Hauler: Scott Nichols MD Calcium [Mass/Vol] 9.5 mg/dL Normal 8.6-10.4 [facility] Comment on above: Performed By: #### 1 0231, 0, 6517 #### [facility] of [address], [address] [place] [address] Field Hauler: Scott Nichols MD Chloride [Moles/Vol] 105 mmol/L Normal 98-110 [facility] Comment on above: Performed By: #### 1 230, 7599, 65 #### [facility] [place] [address] Field Hauler: Scott Nichols MD CO2 [Moles/Vol] 30 mmol/L Normal 20-32 [facility] Comment on above: Performed By: #### 1 230, 7599, 65 #### [facility] [place] [address] Field Hauler: Scott Nichols MD Creatinine [Mass/Vol] 0.62 mg/dL Normal 0.60-0.93 [facility] Comment on above: Result Comment: For patients >49 years of age, the reference limit for Creatinine is approximately 13% higher for people identified as -Mozambican. Performed By: #### 1 230, 7599, 6516 #### [facility] [place] [address] Field Hauler: Scott Nichols MD eGFR NON-AFR. THAI 91 mL/min/1.73m2 Normal > OR = 60 [facility] Comment on above: Performed By: #### 1 230, 7599, 6516 #### [facility] [place] [address] Field Hauler: Scott Nichols MD GFR/1.73 sq M.predicted among blacks MDRD (S/P/Bld) [Vol rate/Area] 106 mL/min/{1.73_m2} Normal > OR = 60 [facility] Comment on above: Performed By: #### 1 230, 7599, 6517 #### [facility] [place] [address] Field Hauler: Scott Nichols MD Globulin (S) [Mass/Vol] 2.8 g/dL Normal 1.9-3.7 [facility] Comment on above: Performed By: #### 1 230, 7599, 6516 #### [facility] [place] [address] Field Hauler: Scott Nichols MD Glucose [Mass/Vol] 124 mg/dL High 65-99 [facility] Comment on above: Result Comment: Fasting reference interval For someone without known diabetes, a glucose value between 100 and 125 mg/dL is consistent with prediabetes and should be confirmed with a follow-up test. Performed By: #### 1 230, 7599, 17 #### [facility] [place] [address] Field Hauler: Scott Nichols MD Potassium [Moles/Vol] 3.7 mmol/L Normal 3.5-5.3 [facility] Comment on above: Performed By: #### 1 230, 7599, 6516 #### [facility] [place] [address] Field Hauler: Scott Nichols MD Protein [Mass/Vol] 7.4 g/dL Normal 6.1-8.1 [facility] Comment on above: Performed By: #### 1 230, 7599, 17 #### [facility] [place] [address] Field Hauler: Scott Nichols MD Sodium [Moles/Vol] 142 mmol/L Normal 135-146 [facility] Comment on above: Performed By: #### 1 230, 7599, 17 #### [facility] [place] [address] Field Hauler: Scott Nichols MD Urea nitrogen [Mass/Vol] 8 mg/dL Normal 7-25 [facility] Comment on above: Performed By: #### 1 230, 7599, 6516 #### [facility] [place] [address] Field Hauler: Scott Nichols MD LIPID PANEL, [facility] Cholesterol [Mass/Vol] 156 mg/dL Normal <200 [facility] Comment on above: Performed By: #### 1 230, 7599, 17 #### [facility] [place] [address] Field Hauler: Scott Nichols MD Cholesterol in HDL [Mass/Vol] 67 mg/dL Normal > OR = 50 [facility] Comment on above: Performed By: #### 1 230, 7599, 17 #### [facility] [address], [address] [place] [address] Field Hauler: Scott Nichols MD Cholesterol in LDL [Mass/Vol] [...] LDL-C. Placido VENTURA et al. MACKENZIE. 2013;310(19): 6042-2369 (http://education.[employer]Zuu Onlnine/faq/BBS264) Performed By: #### 1 230, 7599, 6517 #### [facility] [place] [address] Field Hauler: Scott Nichols MD Cholesterol.total/Ch olesterol in HDL [Mass ratio] 2.3 {ratio} Normal <5.0 [facility] Comment on above: Performed By: #### 1 230, 7599, 6517 #### [facility] [address], [address] [place] [address] Field Hauler: Scott Nichols MD NON HDL CHOLESTEROL 89 mg/dL (calc) Normal <130 [facility] Comment on above: Result Comment: For patients with diabetes plus 1 major ASCVD risk factor, treating to a non-HDL-C goal of <100 mg/dL (LDL-C of <70 mg/dL) is considered a therapeutic option. Performed By: #### 1 230, 7599, 6517 #### [facility] [place] [address] Field Hauler: Scott Nichols MD Triglyceride [Mass/Vol] 85 mg/dL Normal <150 [facility] Comment on above: Performed By: #### 1 0231, 7600, 6517 #### [facility] [place] [address] Field Hauler: Scott Nichols MD REFLEXIVE URINE CULTUREon REFLEXIVE URINE CULTURE Normal [facility] Comment on above: Result Comment: NO C ULTURE INDICATED Performed By: #### 3 020 #### [facility] [place] [address] Field Hauler: Scott Nichols MD URINALYSIS, COMPLETE W/REFLE X TO CULTUREon 02-06-2021 Appearance (U) CLEAR Normal CLEAR [facility] Comment on above: Performed By: #### 3 020 #### [facility] [place] [address] Field Hauler: Scott Nichols MD BACTERIA NONE SEEN Normal NONE SEEN [facility] Comment on above: Performed By: #### 3 020 #### [facility] [place] [address] Field Hauler: Scott Nichols MD Bilirubin Ql (U) Negative Normal NEGATIVE [facility] Comment on above: Performed By: #### 3 020 #### [facility] [place] [address] Field Hauler: Scott Nichols MD Color (U) YELLOW Normal YELLOW [facility] Comment on above: Performed By: #### 3 020 #### [facility] [place] [address] Field Hauler: Scott Nichols MD Glucose Ql (U) Negative Normal NEGATIVE [facility] Comment on above: Performed By: #### 3 020 #### [facility] [place] [address] Field Hauler: Scott Nichols MD HYALINE CAST NONE SEEN Normal NONE SEEN [facility] Comment on above: Performed By: #### 3 020 #### [facility] [place] [address] Field Hauler: Scott Nichols MD Ketones Ql (U) Negative Normal NEGATIVE [facility] Comment on above: Performed By: #### 3 020 #### [facility] [place] [address] Field Hauler: Scott Nichols MD Leukocyte esterase Test strip Ql (U) Negative Normal NEGATIVE [facility] Comment on above: Performed By: #### 3 020 #### [facility] [place] [address] Field Hauler: Scott Nichols MD Nitrite Ql (U) Negative Normal NEGATIVE [facility] Comment on above: Performed By: #### 3 020 #### [facility] [place] [address] Field Hauler: Scott Nichols MD OCCULT BLOOD TRACE Abnormal NEGATIVE [facility] Comment on above: Performed By: #### 3 020 #### [facility] [place] [address] Field Hauler: Scott Nichols MD pH (U) 6.5 [pH] Normal 5.0-8.0 [facility] Comment on above: Performed By: #### 3 020 #### [facility] [place] [address] Field Hauler: Scott Nichols MD Protein Ql (U) Negative Normal NEGATIVE [facility] Comment on above: Performed By: #### 3 020 #### [facility] [place] [address] Field Hauler: Scott Nichols MD RBC NONE SEEN Normal < OR = 2 [facility] Comment on above: Performed By: #### 3 020 #### [facility] of [address], [address] [place] [address] Field Hauler: Scott Nichols MD Specific gravity (U) [Rel density] 1.008 Normal 1.001-1.035 [facility] Comment on above: Performed By: #### 3 020 #### [facility] [place] [address] Field Hauler: Scott Nichols MD SQUAMOUS EPITHELIAL CELLS NONE SEEN Normal < OR = 5 [facility] Comment on above: Performed By: #### 3 020 #### [facility] [place] [address] Field Hauler: Scott Nichols MD WBC NONE SEEN Normal < OR = 5 [facility] Comment on above: Performed By: #### 3 020 #### [facility] [place] [address] Field Hauler: Scott Nichols MD BASIC METABOLIC PANEL 08-2 BUN/CREATININE RATIO NOT APPLICABLE Normal 6-22 [facility] Comment on above: Order Comment: FASTI NG:YESFASTING: YES Performed By: #### 3 020 #### [facility] [place] [address] Field Hauler: Scott Nichols MD Calcium [Mass/Vol] 9.6 mg/dL Normal 8.6-10.4 [facility] Comment on above: Order Comment: FASTI NG:YESFASTING: YES Performed By: #### 3 020 #### [facility] [place] [address] Field Hauler: Scott Nichols MD Chloride [Moles/Vol] 106 mmol/L Normal 98-110 [facility] Comment on above: Order Comment: FASTI NG:YESFASTING: YES Performed By: #### 3 020 #### [facility] [place] [address] Field Hauler: Scott Nichols MD CO2 [Moles/Vol] 29 mmol/L Normal 20-32 [facility] Comment on above: Order Comment: FASTI NG:YESFASTING: YES Performed By: #### 3 020 #### [facility] [place] [address] Field Hauler: Scott Nichols MD Creatinine [Mass/Vol] 0.69 mg/dL Normal 0.50-0.99 [facility] Comment on above: Order Comment: FASTI NG:YESFASTING: YES Result Comment: For patients >49 years of age, the reference limit for Creatinine is approximately 13% higher for people identified as -Moz[place]. Performed By: #### 3 020 #### [facility] [place] [address] Field Hauler: Scott Nichols MD eGFR NON-AFR. THAI 89 mL/min/1.73m2 Normal > OR = 60 [facility] Comment on above: Order Comment: FASTI NG:YESFASTING: YES Performed By: #### 3 020 #### [facility] [place] [address] Field Hauler: Scott Nichols MD GFR/1.73 sq M.predicted among blacks MDRD (S/P/Bld) [Vol rate/Area] 103 mL/min/{1.73_m2} Normal > OR = 60 [facility] Comment on above: Order Comment: FASTI NG:YESFASTING: YES Performed By: #### 3 020 #### [facility] [place] [address] Field Hauler: Scott Nichols MD Glucose [Mass/Vol] 139 mg/dL High 65-99 [facility] Comment on above: Order Comment: FASTI NG:YESFASTING: YES Result Comment: Fasting reference interval For someone without known diabetes, a glucose value >125 mg/dL indicates that they may have diabetes and this should be confirmed with a follow-up test. Performed By: #### 3 020 #### [facility] [place] [address] Field Hauler: Scott Nichols MD Potassium [Moles/Vol] 3.9 mmol/L Normal 3.5-5.3 [facility] Comment on above: Order Comment: FASTI NG:YESFASTING: YES Performed By: #### 3 020 #### [facility] [address], [address] [place] [address] Field Hauler: Scott Nichols MD Sodium [Moles/Vol] 140 mmol/L Normal 135-146 [facility] Comment on above: Order Comment: FASTI NG:YESFASTING: YES Performed By: #### 3 020 #### [facility] [address], [address] [place] [address] Field Hauler: Scott Nichols MD Urea nitrogen [Mass/Vol] 11 mg/dL Normal 7-25 [facility] Comment on above: Order Comment: FASTI NG:YESFASTING: YES Performed By: #### 3 020 #### [facility] [address], [address] [place] [address] Field Hauler: Scott Nichols MD Vital Signs Date Time Vital Sign Value Performing Clinician Facility 08-23-2023 15:14-0400 Body height 157.5 cm Hello Agent DO Work Phone: [facility] 08-23-2023 15:14-0400 Body mass index (BMI) [Ratio] 23.58 kg/m2 Masalang DO Work Phone: [facility] 08-23-2023 15:14-0400 Body temperature 97.59 [degF] Masalang DO Work Phone: [facility] [facility] 08-23-2023 15:14-0400 Body weight 58.47 kg Masalang DO Work Phone: [facility] 08-23-2023 15:14-0400 Diastolic blood pressure 60 mm[Hg] Masalang DO Work Phone: [facility] 08-23-2023 15:14-0400 Heart rate 77 /min Masalang DO Work Phone: [facility] 08-23-2023 15:14-0400 Respiratory rate 18 /min Masalang DO Work Phone: [facility] 08-23-2023 15:14-0400 SaO2% (BldA) [Mass fraction] 98 % Joaquin Furlong DO Work Phone: [facility] 08-23-2023 15:14-0400 Systolic blood pressure 110 mm[Hg] Joaquin Furlong DO [facility] Phone[facility] 07-06-2023 15:49-0500 Body height 157.5 cm Joaquin Furlong DO Work [facility] 07-06-2023 15:49-0500 Body mass index (BMI) [Ratio] 24.23 kg/m2 Joaquin Furlong DO Work Phone: [facility] 07-06-2023 15:49-0500 Body temperature 97.81 [degF] Joaquin Furlong DO Work Phone: [facility] 07-06-2023 15:49-0500 Body weight 60.1 kg Joaquin Furlong DO Work [facility] 07-06-2023 15:49-0500 Diastolic blood pressure 70 mm[Hg] Joaquin Furlong DO Work Phone: [facility] 07-06-2023 15:49-0500 Heart rate 85 /min Joaquin Furlong DO Work Phone: [facility] 07-06-2023 15:49-0500 SaO2% (BldA) [Mass fraction] 98 % Joaquin Furlong DO Work [facility] 07-06-2023 15:49-0500 Systolic blood pressure 122 mm[Hg] Joaquin Furlong DO Work Phone: [facility] 06-09-2023 09:30-0500 Body height 151.13 cm Gino Carrasquillo Other [employer] Other 06-09-2023 09:30-0500 Body mass index (BMI) [Ratio] 25.62 kg/m2 Gino Carrasquillo Other [employer] Other 06-09-2023 09:30-0500 Body weight 58.51 kg Gino Carrasquillo Other [employer] Other 06-09-2023 09:30-0500 Diastolic blood pressure 76 mm[Hg] Gino Carrasquillo Other [employer] Other 06-09-2023 09:30-0500 Systolic blood pressure 122 mm[Hg] Gino Carrasquillo Other [employer] Other 04-13-2023 13:45-0500 Body height 151.13 cm Gino Carrasquillo Other [employer] Other 04-13-2023 13:45-0500 Body mass index (BMI) [Ratio] 25.7 kg/m2 Gino Carrasquillo Other [employer] Other 04-13-2023 13:45-0500 Body weight 58.7 kg Gino Carrasquillo Other [employer] Other 04-13-2023 13:45-0500 Diastolic blood pressure 70 mm[Hg] Gino Carrasquillo Other [employer] Other 04-13-2023 13:45-0500 SaO2% (BldA) [Mass fraction] 97 % Gino Carrasquillo Other [employer] Other 04-13-2023 13:45-0500 Systolic blood pressure 108 mm[Hg] Gino Carrasquillo Other [employer] Other 02-16-2023 13:30-0400 Body height 151.13 cm Gino Carrasquillo Other [employer] Other 02-16-2023 13:30-0400 Body mass index (BMI) [Ratio] 26.01 kg/m2 Gino Carrasquillo Other [employer] Other 02-16-2023 13:30-0400 Body weight 59.42 kg Gino Carrasquillo Other [employer] Other 02-16-2023 13:30-0400 Diastolic blood pressure 80 mm[Hg] Gino Carrasquillo Other [employer] Other 02-16-2023 13:30-0400 SaO2% (BldA) [Mass fraction] 97 % Gino Carrasquillo Other [employer] Other 02-16-2023 13:30-0400 Systolic blood pressure 122 mm[Hg] Gino Carrasquillo Other [employer] Other 02-04-2023 14:00-0400 Body height 151.13 cm Gino Carrasquillo Other [employer] Other 02-04-2023 14:00-0400 Body mass index (BMI) [Ratio] 26.29 kg/m2 Gino Carrasquillo Other [employer] Other 02-04-2023 14:00-0400 Body weight 60.06 kg Gino Carrasquillo Other [employer] Other 02-04-2023 14:00-0400 Diastolic blood pressure 77 mm[Hg] Gino Carrasquillo Other [employer] Other 02-04-2023 14:00-0400 Systolic blood pressure 146 mm[Hg] Gino Carrasquillo Other [employer] Other 01-28-2023 09:45-0400 Body height 151.13 cm Gino Carrasquillo Other [employer] Other 01-28-2023 09:45-0400 Body mass index (BMI) [Ratio] 26.29 kg/m2 Gino Carrasquillo Other [employer] Other 01-28-2023 09:45-0400 Body weight 60.06 kg Gino Carrasquillo Other [employer] Other 01-28-2023 09:45-0400 Diastolic blood pressure 79 mm[Hg] Gino Carrasquillo Other [employer] Other 01-28-2023 09:45-0400 Systolic blood pressure 126 mm[Hg] Gino Carrasuqillo Other [employer] Other 09-08-2022 15:00-0400 Body height 151.13 cm Gino Carrasquillo Other [employer] Other 09-08-2022 15:00-0400 Body mass index (BMI) [Ratio] 26.61 kg/m2 Gino Carrasquillo Other [employer] Other 09-08-2022 15:00-0400 Body weight 60.78 kg Gino Carrasquillo Other [employer] Other 09-08-2022 15:00-0400 Diastolic blood pressure 78 mm[Hg] Gino Carrasquillo Other [employer] Other 09-08-2022 15:00-0400 SaO2% (BldA) [Mass fraction] 97 % Gino Carrasquillo Other [employer] Other 09-08-2022 15:00-0400 Systolic blood pressure 118 mm[Hg] Gino Carrasquillo Other [employer] Other 08-27-2022 14:30-0400 Body height 151.13 cm Gino Carrasquillo Other [employer] Other 08-27-2022 14:30-0400 Body mass index (BMI) [Ratio] 26.41 kg/m2 Gino Carrasquillo Other [employer] Other 08-27-2022 14:30-0400 Body weight 60.33 kg Gino Carrasquillo Other [employer] Other 08-27-2022 14:30-0400 Diastolic blood pressure 74 mm[Hg] Gino Carrasquillo Other [employer] Other 08-27-2022 14:30-0400 SaO2% (BldA) [Mass fraction] 95 % Gino Carrasquillo Other [employer] Other 08-27-2022 14:30-0400 Systolic blood pressure 120 mm[Hg] Gino Carrasquillo Other [employer] Other 08-10-2022 14:30-0400 Body height 151.13 cm Gino Carrasquillo Other [employer] Other 08-10-2022 14:30-0400 Body mass index (BMI) [Ratio] 26.81 kg/m2 Gino Carrasquillo Other [employer] Other 08-10-2022 14:30-0400 Body weight 61.24 kg Gino Carrasquillo Other [employer] Other 08-10-2022 14:30-0400 Diastolic blood pressure 74 mm[Hg] Gino Carrasquillo Other [employer] Other 08-10-2022 14:30-0400 SaO2% (BldA) [Mass fraction] 97 % Gino Neida Other [employer] Other 08-10-2022 14:30-0400 Systolic blood pressure 126 mm[Hg] Gino Carrasquillo Other [employer] Other 11-26-2021 08:12-0400 Blood Pressure Location Norma Lue [facility] 11-26-2021 08:12-0400 Diastolic blood pressure 82 mm[Hg] Norma Lue [facility] [employer] 11-26-2021 08:12-0400 Heart rate 66 /min Norma Lue [facility] [employer] 11-26-2021 08:12-0400 Systolic blood pressure 139 mm[Hg] Norma Lue [facility] [employer] Encounters Encounter Date Encounter Type Care Provider Facility Start: 08-26-2023 Refill Suki Maria C [facility] Start: 08-23-2023 End: 08-23-2023 ambulatory [place] [facility] Start: 08-23-2023 End: 08-23-2023 Office outpatient visit 15 minutes Joaquin Devine DO [facility] Comment on above: Type 2 diabetes ruma itus without complication, without long- term current use of insulin ([facility]) (Primary Dx); Hyperlipidemia, unspecified hyperlipidemia type; Acute deep vein thrombosis (DVT) of calf muscle vein of right lower extremity ([facility]); Benign essential hypertension Start: 08-12-2023 Refill Suki Maria C [facility] Start: 07-27-2023 Telephone encounter Joaquin kebede DO Work Phone: [facility] Start: 07-07-2023 Orders Only Joaquin chung DO Work Phone: [facility] Start: 07-06-2023 End: 07-07-2023 ambulatory [facility] Start: 07-06-2023 ambulatory JOAQUIN G [facility] Start: 07-06-2023 End: 07-06-2023 Office outpatient visit 25 minutes [facility] Dev[facility] DO [facility] Comment on above: 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, without long-term current use of insulin ([facility]) (Primary Dx); Benign essential hypertension; Hyperlipidemia, unspecified hyperlipidemia type; Acute deep vein thrombosis (DVT) of calf muscle vein of right lower extremity ([facility]) Start: 06-14-2023 End: 06-14-2023 ambulatory Gino Carrasquillo Other [employer] Other Start: 06-14-2023 Telephone encounter Gino Carrasquillo [facility] Start: 06-10-2023 End: 06-10-2023 ambulatory Gino Carrasquillo Other [employer] Other Start: 06-10-2023 Telephone encounter Gino Carrasquillo [facility] Start: 06-09-2023 End: 06-09-2023 ambulatory Gino Carrasquillo Other [employer] Other Start: 06-09-2023 Office outpatient vi sit 25 minutes Gino Carrasquillo [facility] Start: 06-07-2023 End: 06-07-2023 ambulatory Gino Carrasquillo Other [employer] Other Start: 06-07-2023 Telephone encounter Bridget Cummins CMA [facility] Start: 06-01-2023 End: 06-01-2023 ambulatory Gino Carrasquillo Other [employer] Other Start: 06-01-2023 Telephone encounter Gino Carrasquillo [facility] Start: 05-31-2023 End: 06-01-2023 ambulatory Kenji De Guzman MD Facility: [facility] Start: 05-19-2023 End: 05-19-2023 ambulatory Gino Neida Other [employer] Other Start: 05-19-2023 Telephone encounter Gino Carrasquillo [facility] Start: 04-13-2023 End: 04-13-2023 ambulatory Gino Neida Other [employer] Other Start: 04-13-2023 Office outpatient vi sit 15 minutes Gino Carrasquillo [facility] Start: 03-11-2023 End: 03-11-2023 ambulatory Gino Neida Other [employer] Other Start: 03-11-2023 Telephone encounter Gino Carrasquillo [facility] Start: 03-10-2023 End: 03-10-2023 ambulatory Gino Carrasquillo Other [employer] Other Start: 03-10-2023 Telephone encounter Gino Carrasquillo [facility] Start: 03-01-2023 End: 03-01-2023 ambulatory Gino Carrasquillo Other [employer] Other Start: 03-01-2023 Telephone encounter Gino Carrasquillo [facility] Start: 02-22-2023 End: 02-22-2023 ambulatory Gino Carrasquillo Other [employer] Other Start: 02-22-2023 Telephone encounter Gino Carrasquillo [facility] Start: 02-16-2023 End: 02-16-2023 ambulatory Gino Carrasquillo Other [employer] Other Start: 02-16-2023 Office outpatient vi sit 15 minutes Gino Carrasquillo [facility] Start: 02-04-2023 End: 02-04-2023 ambulatory Gino Carrasquillo Other [employer] Other Start: 02-04-2023 Office outpatient vi sit 15 minutes Gino Carrasquillo [facility] Start: 02-02-2023 End: 02-02-2023 ambulatory Gino Carrasquillo Other [employer] Other Start: 02-02-2023 Telephone encounter Gino Carrasquillo [employer] Start: 01-28-2023 End: 01-28-2023 ambulatory Gino Carrasquillo Other [employer] Other Start: 01-28-2023 Office outpatient vi sit 15 minutes Gino Carrasquillo [facility] Start: 12-18-2022 End: 12-18-2022 ambulatory Gnio Carrasquillo Other [employer] Other Start: 12-18-2022 Telephone encounter Gino Carrasquillo [facility] Start: 12-09-2022 End: 12-10-2022 ambulatory PA-C SADAF WESTON Facility:[facility] Start: 12-09-2022 End: 12-10-2022 ambulatory PA-C SADAF WESTON Facility: [facility] Start: 12-09-2022 End: 12-09-2022 Lab Drop off SADAF WESTON [facility] Start: 10-05-2022 End: 10-06-[address] GINO CARRASQUILLO Facility: Start: 09-23-2022 End: 09-23-2022 ambulatory Gino Carrasquillo Other [employer] Other Start: 09-23-2022 Telephone encounter Gino Carrasquillo [facility] Start: 09-22-2022 End: 09-23-[address] GINO CARRASQUILLO Facility:[facility] Start: 09-08-2022 End: 09-08-2022 ambulatory Gino Carrasquillo Other [employer] Other Start: 09-08-2022 Office outpatient vi sit 15 minutes Gino Carrasquillo [facility] Start: 08-27-2022 End: 08-27-2022 ambulatory Gino Carrasquillo Other [employer] Other Start: 08-27-2022 Office outpatient vi sit 15 minutes Gino Carrasquillo [facility] Start: 08-13-2022 End: 08-13-2022 ambulatory Gino Carrasquillo Other [employer] Other Start: 08-13-2022 Telephone encounter Gino Carrasquillo [facility] Start: 08-12-2022 End: 08-13-[address] GINO CARRASQUILLO Facility:[facility] Start: 08-11-2022 End: 08-12-[address] GINO CARRASQUILLO Facility:[facility] Start: 08-10-2022 End: 08-10-2022 ambulatory Gino Carrasquillo Other [employer] Other Start: 08-10-2022 Office outpatient ne w 45 minutes Gino Carrasquillo [facility] Start: 07-16-2022 End: 07-16-2022 ambulatory ESA DIAB . Facility:[facility] Start: 03-09-2022 End: 03-09-[address] JOAQUIN DEVINE Facility:[facility] Start: 01-27-2022 End: 01-27-[address] JOAQUIN DEVINE Facility:[facility] Start: 11-26-2021 End: 11-26-2021 Lab Drop off Norma Pulido [facility] Start: 11-26-2021 End: 11-26-2021 Patient encounter procedure Norma Pulido [facility] Start: 11-22-2021 End: 11-23-[address] JOAQUIN DEVINE Facility:[facility] Start: 11-12-2021 End: 11-12-[address] JOAQUIN DEVINE Facility:[facility] Procedures Date Procedure Procedure Detail Performing Clinician Start: 08-23-2023 Follow-up visit Follow-up JOAQUIN DEVINE Start: 08-23-2023 Adult depression scr eening assessment Joaquin Devine DO Work Phone: Start: 07-06-2023 Adult depression scr eening assessment Joaquin Devine DO Work Phone: Start: 02-12-2023 Diabetic retinal eye exam Bridget Cummins [employer] Start: 07-23-2022 Adult depression scr eening assessment Bridget Cummins [employer] Start: 06-16-2021 Cystoscopy SADAF PRAJAPATI Colonoscopy Norma Ashok Cystoscopy Norma Ashok Hysterectomy Norma Lujane Plan of Treatment Date Care Activity Detail Author Start: 08-22-2024 Adult BMI Screening Adult BMI Screen ing [facility] Start: 08-22-2024 Depression Screening Depression Scre ening [facility] Start: 08-22-2024 Fall Risk Screening Fall Risk Screen ing [facility] Start: 08-22-2024 Tobacco Screening Tobacco Screening [facility] Start: 07-06-2024 Adult BMI Screening Adult BMI Screen ing [facility] Start: 07-06-2024 Depression Screening Depression Scre ening [facility] Start: 07-06-2024 Fall Risk Screening Fall Risk Screen ing [facility] Start: 07-06-2024 Tobacco Screening Tobacco Screening [facility] Start: 02-13-2024 Glaucoma screening Diabetic Op hthalmology Exam [facility] Start: 02-09-2024 Adult BMI Screening Adult BMI Screen ing [facility] Start: 02-09-2024 Tobacco Screening Tobacco Screening [facility] Start: 01-23-2024 Influenza vaccination Influenza Vacc ine [facility] Start: 12-15-2023 ambulatory Ambulatory Facility:[facility] Start: 10-25-2023 End: 10-25-2023 Patient encounter procedure 10/25/2023 11:00 AM EDT Office Visit [facility] [address] [place] [address] Joaquin Devine, DO [address], [place] [address] [facility] Start: 08-23-2023 End: 08-23-2023 Patient encounter procedure 08/23/2023 3:30 PM EDT Office Visit [facility] [address] [place] [address] Joaquin Devine, DO [address] [place] [address] [facility] Start: 07-24-2023 Depression Screening Depression Scre ening [facility] Start: 07-24-2023 Fall Risk Screening Fall Risk Screen ing [facility] Start: 01-22-2023 COVID-19 Vaccine ( season) COVID-19 Vaccine ( season) [facility] Start: 01-22-2023 Influenza vaccination Influenza Vacc ine [facility] Start: 10-14-2021 DTaP,Tdap and Td Vaccines (2 - Td or Tdap) DTaP,Tdap and Td Vaccines (2 - Td or Tdap) [facility] Start: 2001 Administration of varicella zoster vaccine Zoster (Shingles) Vaccine (1 of 2) [facility] Start: 1969 Diabetic foot examination Diabetic Foot Exam [facility] Start: 1950 Medicare Annual Well ness Visit Medicare Annual Wellness Visit [facility] Start: 1950 Urine screening for protein Urine Microalbumin [facility] End: 07-06-2024 Hemoglobin A1c/Hemoglobin.total in Blood Hemoglobin A1c Lab Routine Type 2 diabetes mellitus with diabetic nephropathy, without long-term current use of insulin ([facility] 1 Occurrences starting 07/06/2023 until 07/06/2024 [employer] Work Phone: Comment on above: 1 Occurrences starti ng 07/06/2023 until 07/06/2024 Hemoglobin A1c/Hemoglobin.total in Blood Hemoglobin A1c Lab Routine Type 2 diabetes mellitus with diabetic nephropathy, without long-term current use of insulin ([facility]) 07/06/2023 9:50 PM EST [facility] Immunizations Immunization Date Immunization Notes Care Provider Fa susanne 03-15-2022 Influenza Vaccine, Quadrivalent, Adjuvanted [facility] 03-15-2022 influenza virus vaccine, unspecified formulation [facility] 05-06-2021 Influenza, High-dose , Quadrivalent [facility] 02-22-2020 influenza, high dose seasonal, preservative-[facility] 02-06-2020 influenza, high dose seasonal, preservative-free [facility] 08-02-2019 pneumococcal polysaccharide vaccine, 23 valent [facility] 07-31-2019 influenza, high dose seasonal, preservative-free [facility] 05-21-2018 influenza, high dose seasonal, preservative-free [facility] 11-11-2017 pneumococcal polysaccharide vaccine, 23 valent [facility] 07-20-2014 pneumococcal conjuga te vaccine, 13 valent [facility] 02-24-2013 influenza virus vaccine, unspecified formulation [facility] 10-15-2011 tetanus toxoid, redu wanda diphtheria toxoid, and acellular pertussis vaccine, adsorbed [facility] NEGATED: Highlighted row has not occurred!11-26-2021 SARS-CoV-2 mRNA (toberenameran 5y-11y) vaccine Norma Pulido [facility] Payers Date Payer Category Payer Private Health Insurance 2022 Medicare AETNA MEDICARE A ETNA MEDICARE PLAN (PPO) [id number] 2022-Present [phone] [address] [place] [address] [id number] 1958 Medicare [id number] 1958 Medicare [id number] 1958 Medicare [id number] 1950 Unknown [id number] 1950 Unknown [id number] [id number] 1950 Unknown [id number] 2.16.840.1.914668.3.579.2.5 1951 Unknown [id number] 2.16.840.1.328231.3.579.2.5 1951 Unknown [id number] 2.16.840.1.120698.3.579.2.5 1951 Unknown [id number] 2.16.840.1.406862.3.579.2.5 1951 Unknown [id number] 2.16.840.1.911566.3.579.2.5 1951 Unknown [id number] 2.16.840.1.254828.3.579.2.5 1951 Unknown [id number] 2.16.840.1.989412.3.579.2.5 93 1951 Unknown [id number] 2.16.840.1.428243.3.579.2.7 27 1951 Unknown [id number] 2.16.840.1.338814.3.579.2.7 27 1951 Unknown [id number] 2.16.840.1.025232.3.579.2.7 27 1951 Unknown [id number] 2.16.840.1.375245.3.579.2.1 96 1951 Unknown [id number] 2.16.840.1.878032.3.579.2.1 286 1950 Unknown [id number] [id number] 286 1950 Unknown [id number] 286 Social History Date Type Detail Facility Start: 06-04-2021 End: 04-13-2022 Tobacco smoking status Never smoked tobacco (finding) [facility] Start: 06-05-2020 End: 02-08-2023 Sex Assigned At Female [facility] Tobacco smoking status Never [facility] Start: 04-13-2022 Tobacco use and exposure Smokeless tobacco non-user [facility] [employer] Start: 02-08-2023 End: 08-23-2023 Alcohol intake [facility] ([facility] Start: 06-05-2020 End: 02-08-2023 History of Social function [facility] Start: 1950 Sex Assigned At Not on file P [facility] Functional Status Date Assessment Result Facility 11-26-2021 Functional Status N/A [facility] Clinical Notes 11-26-2021 to 08-23-2023 Joaquin Devine, DO - 08/23/2023 3:30 PM EDTTelephone Encounter - Genoveva Castle - 07/27/2023 2:40 PM ESTTelephone Encounter - Joaquin Devine, DO - 07/27/2023 2:40 PM EST Note Date & Type Note Facility 08-23-2023 History of Presen t illness Narrative Subjective Patient ID: Jamir Jones is a 73 y.o. female. Jamir Ricks presents for recheck of DM and DVT. She was having various abdominal pains but she stopped the Eliquis a couple days ago and it stopped. She took it for over 6 months. Her previous PCP told her to come back for labs to see if she needed to continue it. She has not followed up with vascular yet. She has never had a DVT before. It started after she hurt her leg so it was provoked. She is taking metformin once in the morning and if her FBSs are good in the evening then she isn't taking the second dose. The following portions of the patient's history were reviewed and updated as appropriate: allergies, current medications, past family history, past medical history, past social history, past surgical history, problem list, and medication reconciliation was completed including current medication and post discharge medication. Review of Systems Constitutional: Negative. HENT: Negative. Respiratory: Negative. Cardiovascular: Negative. Objective Physical Exam Constitutional: General: She is not in acute distress. Appearance: She is normal weight. She is not ill-appearing. HENT: Head: Normocephalic. Cardiovascular: Rate and Rhythm: Normal rate and regular rhythm. Pulses: Normal pulses. Heart sounds: Normal heart sounds. Pulmonary: Effort: Pulmonary effort is normal. No respiratory distress. Breath sounds: Normal breath sounds. Abdominal: General: Bowel sounds are normal. Palpations: Abdomen is soft. Tenderness: There is no abdominal tenderness. Musculoskeletal: Cervical back: Neck supple. Right lower leg: No edema. Left lower leg: No edema. Neurological: General: No focal deficit present. Mental Status: She is alert and oriented to person, place, and time. Psychiatric: Attention and Perception: Attention normal. Mood and Affect: Mood and affect normal. Speech: Speech normal. Behavior: Behavior normal. Behavior is cooperative. Thought Content: Thought content normal. Judgment: Judgment normal. Assessment/Plan Jamir Ricks was seen today for follow-up, diabetes, hypertension and hyperlipidemia. Diagnoses and all orders for this visit: Type 2 diabetes mellitus without complication, without long-term current use of insulin [place] Ok to take PM dose of metformin based on FBS. Check A1 c next visit Hyperlipidemia, unspecified hyperlipidemia type Continue atorvastatin but if myalgias return then call and will decrease freqency to every other day. Acute deep vein thrombosis (DVT) of calf muscle vein of right lower extremity [place] May stop Eliquis. She has only had 1 provoked DVT and was on Eliquis for 6+ months. Recommended to F/U with vascular. Benign essential hypertension BP at goal. Continue current regimen documented in this encounter [facility] 07-27-2023 Miscellaneous Notes Formattin g of this note might be different from the original. Patient called to report a couple things. First she is having intermittent chest pain about 1x/day that starts on the left near arm pit and runs across to the R side. Second she reports she has not been taking her 2nd metformin dose. Her last meal of the day is at 4pm and her sugar is reading @ 99 which is why she isnt taking the second dose. Currently she has a in office f/u scheduled for 10/05/23. She should probably move that appointment up. Would need to know a lot more information about her chest pain Moved visit up to 08/22 and instructed patient to go to the ER if symptoms worsen in the meantime. [facility] er Note Patient called to report a couple things. First she is having intermittent chest pain about 1x/day that starts on the left near arm pit and runs across to the R side. Second she reports she has not been taking her 2nd metformin dose. Her last meal of the day is at 4pm and her sugar is reading @ 99 which is why she isnt taking the second dose. Currently she has a in office f/u scheduled for 10/05/23. [facility] 07-27-2023 Telephone encount er Note She should probably move that appointment up. Would need to know a lot more information about her chest pain [facility] 07-27-2023 Telephone encount er Note Moved visit up to 08/22 and instructed patient to go to the ER if symptoms worsen in the meantime. [facility] 07-06-2023 History of Presen t illness Narrative Subjective Patient ID: Jamir Jones is a 73 y.o. female. Jamir Ricks presents for recheck of multiple problems. She had labs done with her previous doctor in January and her A1c was elevated at 7.7%. They increased her metformin to a 1000 mg at nighttime but many nights her fasting glucose was below 100 so she did not take it. She is also on Eliquis for a DVT in her right leg. She has 1 more month ago and then she can stop it. She hit her right lower leg and a bruise developed. Shortly thereafter she developed a blood clot. She went to the foot doctor because it was hurting so bad and she told her to go right to the emergency room. It is getting better now. Her musculoskeletal pain is better. She is only taking amlodipine for her blood pressure. She is wondering what her cholesterol is. She would like that checked today. The following portions of the patient's history were reviewed and updated as appropriate: allergies, current medications, past family history, past medical history, past social history, past surgical history, problem list, and medication reconciliation was completed including current medication and post discharge medication. Review of Systems Constitutional: Negative. HENT: Negative. Eyes: Negative. Respiratory: Negative. Cardiovascular: Negative. Gastrointestinal: Negative. Genitourinary: Negative. Musculoskeletal: Negative. Psychiatric/Behavioral: Negative. Objective Physical Exam Constitutional: Appearance: She is normal weight. HENT: Head: Normocephalic. Neck: Vascular: No carotid bruit. Cardiovascular: Rate and Rhythm: Normal rate and regular rhythm. Pulses: Normal pulses. Heart sounds: Normal heart sounds. No murmur heard. Pulmonary: Effort: Pulmonary effort is normal. No respiratory distress. Breath sounds: Normal breath sounds. Abdominal: General: Bowel sounds are normal. Palpations: Abdomen is soft. Tenderness: There is no abdominal tenderness. Musculoskeletal: Cervical back: Neck supple. Right lower leg: No edema. Left lower leg: No edema. Lymphadenopathy: Cervical: No cervical adenopathy. Neurological: General: No focal deficit present. Mental Status: She is alert and oriented to person, place, and time. Psychiatric: Attention and Perception: Attention normal. Mood and Affect: Mood and affect normal. Speech: Speech normal. Behavior: Behavior normal. Behavior is cooperative. Thought Content: Thought content normal. Cognition and Memory: Cognition normal. Judgment: Judgment normal. Assessment/Plan Jamir Ricks was seen today for wants to be a patient here again. Diagnoses and all orders for this visit: Type 2 diabetes mellitus with diabetic nephropathy, without long-term current use of insulin [place] - Hemoglobin A1c; Future Check A1c. She has been sporadic with her evening dose of metformin. I recommend that she take it before her largest meal of the day which is usually around noon he had she can take it in the morning and then it noon. Benign essential hypertension - Comprehensive metabolic panel; Future Blood pressure at goal. Continue amlodipine. Check CMP Hyperlipidemia, unspecified hyperlipidemia type - Lipid panel; Future Check lipid panel DVT RLE Finish 6 months worth of Eliquis and then stop Other orders - Discontinue: metFORMIN (GLUCOPHAGE) 500 mg tablet; Take 1 tablet (500 mg total) by mouth in the morning and 1 tablet (500 mg total) in the evening. Take with meals. - metFORMIN (GLUCOPHAGE) 500 mg tablet; Take 1 tablet (500 mg total) by mouth in the morning and 1 tablet (500 mg total) in the evening. Take with meals. documented in this encounter [facility] 06-09-2023 Evaluation note Encounter Date Diagnosis Assessment Notes May, Type 2 diabetes mellitus with hyperglycemia, without long-term current use of insulin (ICD-10 - E11.65) A1C increased - dose of metformin increased. Watch sweets, stay hydrated. May, Essential (primary) hypertension (ICD-10 - I10) BP stable today. DASH diet and good hydration May, Chronic fatigue (ICD-10 - R53.82) assess for iron deficiency and hypothyroidism [facility] Other 01-15-2024 Evaluation note* Encounter Date Diagnosis Assessment Notes Treatment Notes Treatment Clinical Notes May, Type 2 diabetes mellitus with hyperglycemia, without long-term current use of insulin (ICD-10 - E11.65) [facility] Other 01-15-2024 Miscellaneous Notes* Telephone Encounter - Bridget Cummins CMA - 06/07/2023 11:34 AM EST Called patient to reschedule appointment [facility] Note* Telephone Encounter - Bridget Cummins CMA - 06/07/2023 11:34 AM EST Called patient to reschedule appointment [facility]01-09-2024 Evaluation note* Encounter Date Diagnosis Assessment Notes Treatment Notes Treatment Clinical Notes May, Essential (primary) hypertension (ICD-10 - I10) [facility] Other 11-21-2023 Evaluation note* Encounter Date Diagnosis Assessment Notes Treatment Notes Treatment Clinical Notes Mar, Lumbar back pain with radiculopathy affecting right lower extremity (ICD-10 - M54.16) Discussed holding atorvastatin to help with muscle pain. Pt agrees to referral to Pain Mgmt. Has had benign xrays of back and hip, per her report. [facility] Other 10-18-2023 Evaluation note* Encounter Date Diagnosis Assessment Notes Treatment Notes Treatment Clinical Notes Feb, Recurrent occipital headache (ICD-10 - R51.9) [facility] Other 10-09-2023 Evaluation note* Encounter Date Diagnosis Assessment Notes Treatment Notes Treatment Clinical Notes Feb, Essential (primary) hypertension (ICD-10 - I10) [facility] Other 09-26-2023 Evaluation note* Encounter Date Diagnosis [...] worsened since starting eliquis. Orders faxed to [facility]. [facility] Other 09-14-2023 Evaluation note* Encounter Date Diagnosis Assessment Notes Treatment Notes Treatment Clinical Notes Jan, Acute deep vein thrombosis (DVT) of calf muscle vein of right lower extremity (ICD-10 - I82.461) Wrote out instructions and gave samples of eliquis. Has appt later this week w vascular in [place]. Pt expresses understanding of the seriousness of this problem and will follow up w vascular and attribute to their treatment plan for DVT. [facility] Other 09-07-2023 Evaluation note* Encounter Date Diagnosis Assessment Notes Treatment Notes Treatment Clinical Notes Jan, Cervical pain (neck) (ICD-10 - M54.2) Printed order for PT. continue NSAIDs and heat therapy. Suspect her headaches are due to cervical problems. Jan, Varicose veins of both lower extremities with pain (ICD-10 - I83.813) Pt agrees to referral to vascular surgery for her prominent painful varicose veins. [facility] Other 07-28-2023 Evaluation note* Encounter Date Diagnosis Assessment Notes Treatment Notes Treatment Clinical Notes Nov, Type 2 diabetes mellitus with hyperglycemia, without long-term current use of insulin (ICD-10 - E11.65) [facility] Other 05-03-2023 Evaluation note* Encounter Date Diagnosis Assessment Notes Treatment Notes Treatment Clinical Notes September, Abnormal mammogram of right breast (ICD-10 - R92.8) [facility] Other 04-18-2023 Evaluation note* Encounter Date Diagnosis Assessment Notes Treatment Notes Treatment Clinical Notes Aug, Vaginal yeast infection (ICD-10 - B37.31) Complete med and call if symptoms continue Aug, Screening mammogram for breast cancer (ICD-10 - Z12.31) [facility] Other 04-06-2023 Evaluation note* Encounter Date Diagnosis [...] - I10) Chronic problem - requests refill. [facility] Other 03-22-2023 NotePROCEDURE: XR HIP RT 2 3V W PELVIS HISTORY: Pain in right leg ; low back pain COMPARISON: None. FINDINGS: BONES:No fracture, acute abnormality, or significant arthropathy. SOFT TISSUES:No visible soft tissue swelling. EFFUSION:None visible. OTHER: Negative. IMPRESSION: 1. No acute bone abnormality or significant degenerative changes of the hip joints. Electronically authenticated by: KYLIE MENON Date: 2022-08-12 09:35[facility]03-20-2023 Evaluation note* Encounter Date [...] levels and will check later this week [facility] Other 07-06-2022 Hospital Discharge instructions Patient Education [...] Follow these instructions at home: Medicines Take zvpo-mxx-alzqahi and prescription medicines only as told by [...] or the blood stops without treatment. Take qxis-bph-anbgcgz and prescription medicines only as told by your health care provider. Drink enough fluid to keep your urine clear or pale yellow. This information is not intended to replace advice given to you by your health care provider. Make sure you discuss any questions you have with your health care provider. Document Released: 05/10/2006 Document Revised: 10/04/2019 Document Reviewed: 06/12/2017 [employer] Patient Education 2019 [employer] ([email or web address]). Follow Up Care 11/18/2021 15:11:49 With:Ashok LAWTON, Norma M., URL, URO Address: When:1 year Comments:Renal US [facility] evaluation + Plan note Future Appointments Appointment Date:12/02/2022 08:00:00 AM Scheduled Provider:Norma Pulido MD Location:[facility] Appointment Type:URO Office Visit [facility] evaluation + Plan note Future Appointments Appointment Date:12/15/2023 09:00:00 AM Scheduled Provider:Norma Pulido MD Location:[facility] Appointment Type:URO Office Visit Diagnostic Tests Pending * Urine Culture [facility] InformationNort DocsInk Other Evaluation note* Diagnosis Type 2 diabetes mellitus with diabetic nephropathy, without long-term current use of insulin ([facility] Primary Benign essential hypertension Essential hypertension, benign Hyperlipidemia, unspecified hyperlipidemia type Acute deep vein thrombosis (DVT) of calf muscle vein of right lower extremity ([facility]) documented in this encounter [facility]* Diagnosis Type 2 diabetes mellitus without complication, without long-term current use of insulin ([facility] Primary Hyperlipidemia, unspecified hyperlipidemia type Acute deep vein thrombosis (DVT) of calf muscle vein of right lower extremity ([facility]) Benign essential hypertension Essential hypertension, benign documented [facility] Narrative - Reported* Type Description Date Medical History Hyperlipidemia Medical History Diabetes Medical History Hypertension Surgical History Hysterectomy 1987 [facility] Other History general Narrative - Reported* Type Description Date Medical History Hyperlipidemia Medical History Diabetes Medical History Hypertension Surgical History Hysterectomy 1987 Hospitalization History SEE SURGICAL HX [facility] Other Hospital course Narrative No data available for this section [facility] Hospital Discharge instructions No data available for this section [facility]Not on filedocumented in this encounter [facility] System[facility]ructionsNot on filedocumented in this encounter [facility] SystemInstructionsNot on filedocumented in this encounter [facility] System[facility]ructionsNot on filedocumented in this encounter [facility]ructionsNot on filedocumented in this encounter [facility] System[facility]ructionsNot on filedocumented in this encounter [facility] note No data available for this section [facility] Summary Purpose Family History No Family History [...] R lumbar pain referr ed to [facility] and R knee area. Diagnosis 1 Lumbar back pain wit h radiculopathy affecting right lower extremity (M54.16) Referral Organization [facility] Referring Provider First Name Gino Referring Provider Last Name Neida Referring Provider Specialty [facility] Referred Organization [facility] Referred Address [address], [place],[address] Referred Provider Specialty Pain Medicin e Referral Priority Routine Reason [facility] [place] office? Last 2 OV, had xray and MRI. Occipital headaches Diagnosis 1 Recurrent occipital headache (R51.9) Referral Organization [facility] Referring Provider First Name Gino Referring Provider Last Name Neida Referring Provider Specialty [facility] Referred Organization [facility] Referred Address [address], [place],[address] Referred Provider Specialty Neurology Referral Priority Routine Reason [facility] [place] - varicose veins that are tender R>L Diagnosis 1 Varicose veins of yong th lower extremities with pain (I83.813) Referral Organization [facility] Referring Provider First Name Gino Referring Provider Last Name Neida Referring Provider Specialty [facility] Referred Organization [facility] Referred Provider Betty Matos Referred Address [address],[place], [place],[address] Referred Provider Specialty Vascular Tena rj Referral Priority Routine General Notes Giselle Levy 11:48:16 AM >received today, attachments made, waiting for notes to be locked Giselle Levy 02/02/2023 09:22:14 AM >SENT TE TO LOCK NOTES Clinical Notes P: [phone] F: [id number] Additional Source Comments Care Team (unrecognized sect ion and content) 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 Relationship Specialty Start Date End Date Gino Carrasquillo MD [address] [place] [address] PCP - General Family Medicine 02/04/23 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 Relationship Specialty Start Date End Date Joaquin Devine DO [address] [place] [address] PCP - General Family Medicine 07/06/23 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 Relationship Specialty Start Date End Date Joaquin Devine DO [address] [place] [address] PCP - General Family Medicine 07/06/23 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 Relationship Specialty Start Date End Date Joaquin Devine DO [address] [place] [address] PCP - General Family Medicine 07/06/23 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 Relationship Specialty Start Date End Date Joaquin Devine DO [address] [place] [address] PCP - General Family Medicine 07/06/23 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 Relationship Specialty Start Date End Date Joaquin Devine DO [address] [place] [address] PCP - General Family Medicine 07/06/23 INFORMATION SOURCE (unrecogn ized section and content) DATE CREATED AUTHOR 11/27/2021 [facility] DATE CREATED AUTHOR AUTHOR'S ORGANIZ ATION 10/06/2022 [facility] DATE CREATED AUTHOR AUTHOR'S ORGANIZ ATION 01/03/2023 [facility] DATE CREATED AUTHOR AUTHOR'S ORGANIZ ATION 06/02/2023 [facility] DATE CREATED AUTHOR AUTHOR'S ORGANIZ ATION 07/08/2023 [facility] DATE CREATED AUTHOR AUTHOR'S ORGANIZ ATION [facility] REASON FOR VISIT (unrecogniz ed section and content) Reason Comments Wants to be a patient here again Reason Onset Date Comments Med Refill 08/12/2023 Reason Comments Follow-up 3 month Diabetes Hypertension Hyperlipidemia Moved up per dr manuela de jesus chest pain Reason Onset Date Comments Med Refill 08/26/2023 FOR RECORDS PERTAINING TO PATIENTS WHO ARE [...] BE BASED ON THE PRIMARY CLINICAL RECORDS. [employer] [facility]. provides no warranty or guarantee of the accuracy or completeness of information in this document.
--- NOTE | 2023-09-14 02:14 | ED.GENADUL1 ---
HPI HPI - General Adult General Chief complaint: Recheck/Abnormal Lab/Rx Stated complaint: BLOOD PRESSURE CHECK BLUR VISION Time Seen by Provider: 09/14/23 00:49 Source: patient Mode of arrival: walk-in History of Present Illness HPI narrative: Need to-year-old female presents for elevated blood pressure. She checked it at home and it was high. She took her evening dose of blood pressure medication as scheduled shortly before coming into the emergency department. Earlier in the day she had laser eye surgery and transiently had some lines that she was seeing but this has resolved completely and her vision is completely back to normal. No headache. Related Data Home Medications ?Medication ?Instructions ?Recorded ?Confirmed apixaban 2.5 mg tablet (Eliquis) 2.5 mg PO BID 02/06/23 06/15/23 amlodipine 5 mg tablet 5 mg PO DAILY 05/31/23 06/15/23 atorvastatin 20 mg tablet 20 mg PO DAILY 05/31/23 06/15/23 meloxicam 7.5 mg tablet 7.5 mg PO DAILY 05/31/23 05/31/23 metformin 500 mg tablet 500 mg PO DAILY 05/31/23 06/15/23 Previous Rx's ?Medication ?Instructions ?Recorded ondansetron 4 mg disintegrating 4 mg PO Q6H PRN nausea and 05/18/23 tablet vomiting #14 tabs Allergies Allergy/AdvReac Type Severity Reaction Status Date / Time amoxicillin Allergy Unknown Verified 06/15/23 03:13 cefdinir Allergy Unknown Verified 06/15/23 03:13 lisinopril Allergy Unknown Verified 06/15/23 03:13 metformin Allergy Unknown Verified 06/15/23 03:13 sulfamethoxazole Allergy Unknown Verified 06/15/23 03:13 [From Bactrim] trimethoprim [From Bactrim] Allergy Unknown Verified 06/15/23 03:13 Opioid HPI Opioid Management Most Recent Opioid Data: No Data to Display Review of Systems ROS Narrative A ten point review of systems is negative except as noted above. PFSH PFSH Social History Smoking status: Never smoker Exam Narrative Exam Narrative: Nurses note and vital signs reviewed and patient is not hypoxic. General: The patient appears well and in no apparent distress. Patient is resting comfortably on cart. Skin: Warm, dry, no pallor noted. There is no rash noted. Head: Normocephalic, atraumatic Eye: Normal conjunctiva, no drainage, EOMI. PERRL. Ears, Nose, Mouth, and Throat: oral mucosa is moist. Nares patent. Cardiovascular: Regular Rate and Rhythm Respiratory: Patient is in no distress, no accessory muscle use, lungs are clear to auscultation, no wheezing, rales or rhonchi Back: non-tender GI: Soft and nontender Musculoskeletal: The patient has no evidence of calf tenderness, no pitting edema, symmetrical pulses noted bilaterally Neurological: A&O, normal speech; cranial nerves II through XII intact. Upper and lower extremity strength symmetric Psychiatric: Cooperative Constitutional Vital Signs, click to edit/add: Last Vital Signs Pulse 76 09/14/23 00:47 Resp 16 09/14/23 00:47 BP 132/66 09/14/23 02:11 Pulse Ox 97 09/14/23 00:52 O2 Del Method Room Air 09/14/23 00:47 Course Vital Signs Vital signs: Vital Signs Pulse Rate 76 09/14/23 00:47 Respiratory Rate 16 09/14/23 00:47 Blood Pressure 173/94 H 09/14/23 00:47 Pulse Oximetry 97 09/14/23 00:47 Oxygen Delivery Method Room Air 09/14/23 00:47 Pulse Rate 76 09/14/23 00:47 Respiratory Rate 16 09/14/23 00:47 Blood Pressure 132/66 09/14/23 02:11 Pulse Oximetry 97 09/14/23 00:52 Oxygen Delivery Method Room Air 09/14/23 00:47 Medical Decision Making [facility] Narrative Medical decision making narrative: Her blood pressure was mildly elevated upon arrival and improved gradually during her emergency department stay. She has no symptoms, no vision changes and she will be discharged. She will follow-up with her eye doctor and will call in the morning. Treatment diagnosis and follow-up were discussed with the patient. I have no clinical suspicion of a stroke. Differential Diagnosis Differential Diagnosis: [place], stroke, hypertension Discharge Plan Discharge Stand Alone Forms: Portal Instructions Chief Complaint: Recheck/Abnormal Lab/Rx Clinical Impression: Hypertension Patient Disposition: Home, Self-Care Time of Disposition Decision: 02:13 Condition: Good Mode of Transportation: Private Vehicle Prescriptions / Home Meds: No Action Eliquis 2.5 mg tablet 2.5 mg PO BID amlodipine 5 mg tablet 5 mg PO DAILY atorvastatin 20 mg tablet 20 mg PO DAILY meloxicam 7.5 mg tablet 7.5 mg PO DAILY metformin 500 mg tablet 500 mg PO DAILY ondansetron 4 mg tablet,disintegrating 4 mg PO Q6H PRN (Reason: nausea and vomiting) Qty: 14 0RF Print Language: Tajik Instructions: Hypertension (ED) Additional Instructions: Call your eye doctor in the morning. Referrals: BRUCE WALLER [Primary Care Provider] - 1 week
== END 2023-09-14 02:15 | disposition home or self-care (01) ==
PROVIDERS: Emergency Provider Emergency Medicine; PCP Family Medicine
DX: I10 Essential (primary) hypertension (principal); Z79.01 Long term (current) use of anticoagulants; Z79.899 Other long term (current) drug therapy; Z79.84 Long term (current) use of oral hypoglycemic drugs
CPT/HCPCS: 99282

== ENCOUNTER 2023-10-25 12:06 | Outpatient (OUT) | payer MEDICARE, SELFPAY ==
--- OUTSIDE RECORDS SUMMARY | 2023-10-25 12:25 | XMS_ITS | CCD ---
Author Organization [facility] Care Team Providers Care Seismic Prospecting Observer Helper Name Role Phone JOAQUIN DEVINE Primary Care Physician Gino Carrasquillo NEIDA, DR GINO Lara Attending Unavailable CARRASQUILLO, DR GINO Lara Admitting Unavailable ZIEBER, DR KYLIE Soto Consulting Unavailable CARRASQUILLO, DR GINO Lara Primary Care Unavailable CARRASQUILLO, DR GINO Lara Consulting Unavailable CARRASQUILLO, DR GINO Lara Primary Care Unavailable CARRASQUILLO, DR GINO Lara Attending Unavailable EASTPOINTE, DR BRYCE Garcia Consulting Unavailable CARRASQUILLO, DR GINO Lara Admitting Unavailable CARRASQUILLO, DR GINO Lara Consulting Unavailable CARRASQUILLO, DR GINO Lara Primary Care Unavailable CARRASQUILLO, DR GINO Lara Attending Unavailable ZIEBER, DR KYLIE Soto Consulting Unavailable CARRASQUILLO, DR GINO Lara Admitting Unavailable CARRASQUILLO, DR GINO Lara Consulting Unavailable DIAB ., ESA Consulting Unavailable DIAB ., ESA Attending Unavailable FURLOFRANCIS, DR JOAQUIN Porter Primary Care Unavailable DIAB ., ESA Admitting Unavailable FURLONG, DR JOAQUIN Porter Primary Care Unavailable HAY ., DR CHATTERJEE Consulting Unavailable HAY ., DR CHATTERJEE Attending Unavailable HAY ., DR CHATTERJEE Admitting Unavailable FALVO, JOSE M Consulting Unavailable FURMINDYNG, DR JOAQIUN Porter Primary Care Unavailable MARKER ., DR MCCONNELL Consulting Unavailable MARKER ., DR MCCONNELL Attending Unavailable MARKER ., DR MCCONNELL Admitting Unavailable SAID, RAYNE Consulting Unavailable CARRASQUILLO, DR GINO Lara Primary Care Unavailable LARRY ., DR PASTOR Consulting Unavailable LARRY ., DR PASTOR Attending Unavailable LARRY ., DR PASTOR Admitting Unavailable ZIEBER, DR KYLIE Soto Consulting Unavailable FURMINDYNG, DR JOAQUIN Porter Primary Care Unavailable LARRY ., DR PASTOR Consulting Unavailable LARRY ., DR PASTOR Attending Unavailable LARRY ., DR PASTOR Admitting Unavailable FURLONG, DR JOAQUIN Porter Primary Care Unavailable NORMA STOVALL Attending Unavailable LOBITO YEE Consulting Unavailable ASHOK .NORMA Admitting Unavailable ASHOK .NORMA Consulting Unavailable GINO CARRASQUILLO Primary Care Physician Norma Pulido Attending Unavailable KRISTINE WESTON Attending Unavailab KRISTINE Benavides Attending Unavailab loyda WESTON, KRISTINE RANGEL E Admitting Unavailab loyda De Guzman MD, Kenji Mckeon Attending Unavailable Gino Carrasquillo MD Primary Care Provider Furlong DO, Joaquin Porter Primary Care Provider [phone] FURLONG, JOAQUIN G Referring Unavailable FURLONG, JOAQUIN G Primary Care Unavailable FURLONG, JOAQUIN G Attending Unavailable FURLONG, JOAQUIN Porter Referring Unavailable FURLONG, JOAQUIN Porter Primary Care Unavailable SOCRATES BEYER Attending Unavailable FURLONG, JOAQUIN G Referring Unavailable FURLONG, JOAQUIN G Primary Care Unavailable FURLONG, JOAQUIN G Attending Unavailable GINO CARRASQUILLO Referring Unavailable FURLONG, JOAQUIN G Primary Care Unavailable FURLONG, JOAQUIN G Referring Unavailable FURLONG, JOAQUIN G Primary Care Unavailable Allergies Allergy Classification Reported Allergen(s) Allergy Type Date of Onset Reaction(s) Facility (20 sources) Amoxicillin; Translations: [amoxicillin] Drug Allergy 2 Eruption of skin (disorder), Hives, Rash [facility] (20 sources) cefdinir; Translations: [cefdinir] Drug Allergy 2 Eruption (morphologic abnormality), Rash, Hives [facility] (20 sources) Lisinopril; Translations: [lisinopril] Drug Allergy 2 Cough (finding), Cough [facility] (4 sources) metFORMIN; Translations: [metformin] Drug Allergy Other (qualifier value) [facility] (20 sources) Sulfamethoxazole / Trimethoprim; Translations: [sulfamethoxazole-tr imethoprim] Drug Allergy 2 Other (qualifier value), Other (See Comments) [facility] (1 source) Amino Acids Drug Allergy 3 [facility] (1 source) Amoxicillin Drug Allergy 1 [facility] (1 source) cefdinir Drug Allergy 3 [facility] (1 source) metFORMIN Drug Allergy 3 [facility] (1 source) Sulfamethoxazole / Trimethoprim Drug Allergy 3 [facility] (1 source) metFORMIN Drug Allergy 2 Other (See Comments) [facility] (2 sources) Sulfamethoxazole / Trimethoprim; Translations: [SULFAMETHOXAZOLE-TR IMETHOPRIM] Drug Allergy 2 [facility] Rep[facility] Medications Current Medications Medication Drug Class(es) [...] Drug Class(es) Dates Sig (Normalized) Sig (Original) [id number] 200 actuat albuterol 0.09 mg/actuat metered dose [...] 20 mg/ml oral solution (2 sources) Uncompetitive K-lgdfgk-N-aspartate Receptor Antagonist, Sigma-1 Agonist Start: 07-03-2022 End: [...] source) Long-term current use of aspirin; Translations: [USP (current) use of aspirin] Onset: 11-26-2021 Episodic Other aftercare (1 source) roasterman (current) use of oral hypoglycemic drugs; Translations: [CORRECTION USE ORAL HYPOGLYCEMIC DX] Onset: 07-20-2022 Episodic Other aftercare (1 source) Other shelter (current) drug therapy; Translations: [OTH CORRECTION CURRENT DRUG THERAPY] Onset: 07-20-2022 Episodic Other [...] [Psoriasis, unspecified] Onset: 03-27-2022 03-27-2022 Chronic Other lower respiratory disease (1 source) Cough Onset: 09-14-2023 Episodic Other nervous system disorders (7 sources) Mortons [...] 03-27-2022 03-27-2022 Chronic Other upper respiratory infections (2 sources) Acute maxillary sinusitis, unspecified; Translations: [Acute pansinusitis, unspecified] Onset: 09-14-2023 Episodic Phlebitis; thrombophlebitis and thromboembolism (8 sources) [...] muscular vein] Onset: 07-06-2023 Unclassified (1 source) Acute cough; Translations: [Acute cough] Onset: 09-14-2023 Unclassified (1 source) Wants to be a [...] Interpretation Reference Range Facility COMPREHENSIVE METABOLIC PANE Navid 07-06-2023 Albumin [Mass/Vol] 4.5 g/dL Normal 3.2-5.3 [facility] Comment on above: Performed By: #### C MP, , 2088-05 #### [facility] ([id number]) [address], [address] [place] [address] ALP [Catalytic activity/Vol] 49 U/L Normal 39-130 [facility] Comment on above: Performed By: #### Satinder SERRANO, , 2088-05 #### [facility] ([id number]) [address], [address] [place] [address] ALT [Catalytic activity/Vol] 9 U/L Normal 0-31 [facility] Comment on above: Performed By: #### Satinder SERRANO, , 2088-05 #### [facility] ([id number]) [address], [address] [place] [address] Anion gap [Moles/Vol] 10 mmol/L Normal 5-15 [facility] Comment on above: Performed By: #### Satinder SERRANO, , 2088-05 #### [facility] ([id number]) [address], [address] [place] [address] AST [Catalytic activity/Vol] 14 U/L Normal 0-41 [facility] Comment on above: Performed By: #### Satinder SERRANO, , 2088-05 #### [facility] ([id number]) [address], [address] [place] [address] Bilirubin [Mass/Vol] 0.4 mg/dL Normal 0.3-1.2 [facility] Comment on above: Performed By: #### Satinder SERRANO, , 2088-05 #### [facility] ([id number]) [address], [address] [place] [address] Calcium [Mass/Vol] 10.2 mg/dL Normal 8.5-10.5 [facility] Comment on above: Performed By: #### Satinder SERRANO, , 2088-05 #### [facility] ([id number]) [address] [place] [address] Chloride [Moles/Vol] 105 mmol/L Normal 98-109 [facility] Comment on above: Performed By: #### Satinder SERRANO, , 2088-05 #### [facility] ([id number]) [address], [address] [place] [address] CO2 [Moles/Vol] 28 mmol/L Normal 22-32 [facility] Comment on above: Performed By: #### Satinder SERRANO, , 2088-05 #### [facility] ([id number]) [address], [address] [place] [address] Creatinine [Mass/Vol] 0.62 mg/dL Normal 0.40-1.00 [facility] Comment on above: Result Comment: METH OD TRACEABLE TO IDMS STANDARD Performed By: #### Satinder SERRANO, , 2088-05 #### [facility] ([id number]) [address], [address] [place] [address] eGFR (CKD-EPI) NON-RACE DEPENDENT >90 Normal >59 [facility] Comment on above: Result Comment: Reported eGFR is based on the CKD-EPI 1 equation that does not use a race coefficient. Performed By: #### Satinder SERRANO, , 2088-05 #### [facility] ([id number]) [address], [address] [place] [address] Glucose [Mass/Vol] 107 mg/dL High 65-99 [facility] Comment on above: Performed By: #### Satinder SERRANO, , 2088-05 #### [facility] ([id number]) [address], [address] [place] [address] Potassium [Moles/Vol] 3.5 mmol/L Normal 3.5-5.0 [facility] Comment on above: Performed By: #### Satinder SERRANO, 06570-9, 2088-05 #### [facility] ([id number]) [address], [address] [place] [address] Protein [Mass/Vol] 7.4 g/dL Normal 6.0-8.0 [facility] Comment on above: Performed By: #### Satinder SERRANO, , 2088-05 #### [facility] ([id number]) [address], [address] [place] [address] Sodium [Moles/Vol] 143 mmol/L Normal 134-146 [facility] Comment on above: Performed By: #### Satinder SERRANO, , 2088-05 #### [facility] ([id number]) [address], [address] [place] [address] Urea nitrogen [Mass/Vol] 8 mg/dL Normal 5-27 [facility] Comment on above: Performed By: #### Satinder SERRANO, , 2088-05 #### [facility] ([id number]) [address], [address] [place] [address] Comprehensive metabolic pane navid 07-06-2023 Albumin [Mass/Vol] 4.5 g/dL 3.2 - 5.3 g/dL [facility] ALP [Catalytic activity/Vol] 49 U/L 39 - 130 U/L [facility] ALT No additional P-5'-P [Catalytic activity/Vol] 9 U/L 0 - 31 U/L [facility] Anion gap [Moles/Vol] 10 mmol/L 5 - 15 mmol/L [facility] AST [Catalytic activity/Vol] 14 U/L 0 - 41 U/L [facility] Bilirubin [Mass/Vol] 0.4 mg/dL 0.3 - 1 .2 mg/dL [facility] Calcium [Mass/Vol] 10.2 mg/dL 8.5 - 10. 5 mg/dL [facility] Chloride [Moles/Vol] 105 mmol/L 98 - 10 9 mmol/L [facility] CO2 [Moles/Vol] 28 mmol/L 22 - 32 mmol/L [facility] Creatinine [Mass/Vol] 0.62 mg/dL 0.40 - 1.00 mg/dL [facility] Comment on above: METHOD TRACEABLE TO [facility] STANDARD eGFR (CKD-EPI)non-race dependent - PINF [facility] Comment on above: Reported eGFR is based on the CKD-EPI 2020 equation that does not use a race coefficient. Glucose [Mass/Vol] 107 mg/dL High 65 - 99 mg/dL [facility] Potassium [Moles/Vol] 3.5 mmol/L 3.5 - 5.0 mmol/L [facility] Protein [Mass/Vol] 7.4 g/dL 6.0 - 8.0 g/dL [facility] Sodium [Moles/Vol] 143 mmol/L 134 - 146 mmol/L [facility] Urea nitrogen [Mass/Vol] 8 mg/dL 5 - 27 mg/dL [facility] DIRECT LDLon 07-06-2023 Cholesterol in LDL [Mass/Vol] 154 mg/dL High <130 [facility] Comment on above: Result Comment: LDL <100 mg/dL - Desirable LDL 130-159 mg/dL - Borderline High Risk LDL >160 mg/dL - High Risk Performed By: #### Satinder SERRANO, 60120-1, 2088-05 #### [facility] ([id number]) [address], [address] [place] [address] HGB A1C (GLYCO-HGB)on 2023 Glucose [Mass/Vol] 157 mg/dL Normal [facility] Comment on above: Performed By: ###[place], [address]-4, 2088-05 #### [facility] ([id number]) [address], [address] [place] [address] HbA1c (Bld) [Mass fraction] 7.1 % High 4.4-5.6 [facility] Comment on above: Result Comment: NOTE ADA Guidelines Result HgbA1c Normal : less than 5.7 % Prediabetes : 5.7 % to 6.4 % Diabetes : > 6.4 % Use with caution in patients with abnormal hemoglobin variants as the half-life of red blood cells and in vivo glycation rates are affected. Performed By: #### Satinder SERRANO, 42872-7, 2088-05 #### [facility] ([id number]) [address], [address] [place] [address] Lipid 1996 panelon 4 Cholesterol [Mass/Vol] 234 mg/dL High 150 - 200 mg/dL [facility] Cholesterol in HDL [Mass/Vol] 54 mg/dL 39 - PINF mg/dL [facility] Comment on above: HDL <40 mg/dL - High Risk HDL > or = 40mg/dL- Desirable HDL >60 mg/dL - Negative Risk Cholesterol in LDL [Mass/Vol] RESULT NOT REPORTED DUE TO HIGH TRIGLYCERIDE NINF - 130 mg/dL [facility] Cholesterol in VLDL [Mass/Vol] 84 mg/dL High 0 - 30 mg/dL [facility] Cholesterol.total/Ch olesterol in HDL [Mass ratio] 4.3 {ratio} 1.0 - 5.0 [facility] Triglyceride [Mass/Vol] 418 mg/dL High 27 - 150 mg/dL [facility] Cholesterol [Mass/Vol] 234 mg/dL High 150-200 [facility] Comment on above: Performed By: #### Satinder SERRANO, , 2088-05 #### [facility] ([id number]) [address], [address] [place] [address] Cholesterol in HDL [Mass/Vol] 54 mg/dL Normal >39 [facility] Comment on above: Result Comment: HDL <40 mg/dL - High Risk HDL > or = 40mg/dL- Desirable HDL >60 mg/dL - Negative Risk Performed By: #### Satinder SERRANO, , 2088-05 #### [facility] ([id number]) [address], [address] [place] [address] Cholesterol in VLDL [Mass/Vol] 84 mg/dL High 0-30 [facility] Comment on above: Performed By: #### Satinder SERRANO, , 2088-05 #### [facility] ([id number]) [address], [facility] [address] [place] [address] CHOLESTEROL:HDL 4.3 Normal 1.0-5.0 [facility] Comment on above: Performed By: #### Satinder SERRANO, , 2088-05 #### [facility] ([id number]) [address], [facility] [address] [place] [address] LDL (CALC) RESULT NOT REPORTED DUE TO HIGH TRIGLYCERIDE Normal <130 [facility] Comment on above: Performed By: #### Satinder SERRANO, , 2088-05 #### [facility] ([id number]) [address], [address] [address] Triglyceride [Mass/Vol] 418 mg/dL High 27-150 [facility] Comment on above: Performed By: #### Satinder SERRANO, , 2088-05 #### [facility] ([id number]) [address], [address] [address] No Panel Informationon 07-06 Interpretation and review of laboratory results Abnormal [facility] RAD - Ultrasound Reporton RAD - Ultrasound Report [id number] Normal [facility] C Urineon 12-11-2022 Bacteria identified Cx Nom [...] Locations R1: This test was performed at: [facility], [address] [place] [address], [facility]- , , [facility] Comment on above: Performed By: #### 2 [id number] #### [facility] [address] [place] [address] Ambulatory Visit Summaryon 0 12-09-2022 Ambulatory Visit Summary PEARL JONES :1950 Visit Date:12/09/2022 Ambulatory Visit Instructions Your Diagnosis Asymptomatic microscopic hematuria Renal cyst Leaking of urine Feeling of incomplete bladder emptying Aspirin long-term use Tests Performed Urnls Dip Stick Auto w/o Microscopy POC [id number] Your Care Team Attending Physician - SADAF [...] Norma Chambers Where: [facility] Tori Golden [facility] Patient Educationon 12-10-19 Patient Education Urology Hematuria, [...] these instructions at home: Medicines ? Take mohf-wrg-cbpynea and prescription medicines only as told by [...] the blood stops without treatment. ? Take nota-qyn-rviaiam and prescription medicines only as told by your health care provider. ? Drink enough fluid to keep your urine pale yellow. This information is not intended to replace advice given to you by your health care provider. Make sure you discuss any questions you have with your health care provider. Document Revised: 01/08/2021 Document Reviewed: 01/08/2021 [employer] Patient Education ? 2022 [employer] Normal [facility] URINALYSISOrdered By: Stephanie moy on 12-09-2022 Bilirubin [...] (12/09/22 3:29 PM) Invalid Interpretation Code Negative FT UA Auto SS Hemoglobin Ql (U) 2+ *ABN* (12/09/22 3:29 PM) Invalid Interpretation Code Negative FT UA Auto SS Ketones (U) [Mass/Vol] Trace *NA* (12/09/22 3:29 PM) Invalid Interpretation Code Negative FT UA Auto SS [place].plasma/Lithi um.RBC (Bld) [Mass ratio] 0-3 /HPF Normal 0-3/HPF FT UA Auto SS Mucus Ql (Urine sed) 2+ (12/09/22 3:29 PM) Normal FT UA Auto SS Nitrite Ql (U) Negative (12/09/22 3:29 PM) Normal Negative [facility] UA Auto SS pH (U) 6.0 *NA* (12/09/22 3:29 PM) Invalid Interpretation Code 5.0 - 9.0 [facility] UA Auto SS Protein (U) [Mass/Vol] Negative (12/09/22 3:29 PM) Normal Negative [facility] UA Auto SS Specific gravity (U) [Rel density] 1.015 *NA* (12/09/22 3:29 PM) Invalid Interpretation Code 1.005 - 1.030 [facility] UA Auto SS UA Spec Desc Random Urine (12/09/22 3:29 PM) Normal [facility] UA Auto SS Urobilinogen Qn (U) 0.3904574 {Tyrell'U}/dL Normal 0.0 - 1.0 EU/dL [facility] UA Auto SS WBC Auto Ql (U) Negative (12/09/22 3:29 PM) Normal Negative [facility] UA Auto SS WBC LM.HPF (Urine sed) [#/Area] 0-5 /HPF Normal 0-5/HPF [facility] UA Auto SS Urinalysison 12-09-2022 Bilirubin Ql (U) Negative Normal Negative [facility] Comment on above: Performed By: #### 1 [id number] #### [facility] [address] [place] [address] Clarity (U) CLEAR Normal Clear [facility] Comment on above: Performed By: #### 1 [id number] #### [facility] [address] [place] [address] Color (U) YELLOW Normal Yellow [facility] Comment on above: Performed By: #### 1 [id number] #### [facility] [address] [place] [address] Crystals LM Ql (Urine sed) Present Normal [facility] Comment on above: Performed By: #### 1 [id number] #### [facility] [address] [place] [address] Epithelial cells.squamous LM.HPF (Urine sed) [#/Area] 0-2 Normal 0-2 [facility] Comment on above: Performed By: #### 1 [id number] #### [facility] [address] [place] [address] Glucose Test strip (U) [Mass/Vol] 1+ Abnormal Negative [facility] Comment on above: Performed By: #### 1 [id number] #### [facility] [address] [place] [address] Hemoglobin Ql (U) 2+ Abnormal Negative [facility] Comment on above: Performed By: #### 1 [id number] #### [facility] [address] [place] [address] Ketones (U) [Mass/Vol] TRACE Invalid Interpretation Code Negative [facility] Comment on above: Performed By: #### 1 [id number] #### [facility] [address] [place] [address] [place].plasma/Lithi um.RBC (Bld) [Mass ratio] 0-3 Normal 0-3 [facility] Comment on above: Performed By: #### 1 [id number] #### [facility] [address] [place] [address] Mucus Ql (Urine sed) 2+ Normal [facility] Comment on above: Performed By: #### 1 [id number] #### [facility] [address] [place] [address] Nitrite Ql (U) Negative Normal Negative [facility] Comment on above: Performed By: #### 1 [id number] #### [facility] [address] [place] [address] pH (U) 6.0 [pH] Invalid Interpretation Code 5.0-9.0 [facility] Comment on above: Performed By: #### 1 [id number] #### [facility] [address] [place] [address] Protein (U) [Mass/Vol] Negative Normal Negative [facility] Comment on above: Performed By: #### 1 [id number] #### [facility] [address] [place] [address] Specific gravity (U) [Rel density] 1.015 Invalid Interpretation Code 1.005-1.030 [facility] Comment on above: Performed By: #### 1 [id number] #### [facility] [address] [place] [address] Type of Urine collection method Random Urine Normal [facility] Comment on above: Performed By: #### 1 [id number] #### [facility] [address] [place] [address] Urobilinogen Qn (U) 0.2 {Tyrell'U}/dL Normal 0.0-1.0 [facility] Comment on above: Performed By: #### 1 [id number] #### [facility] [address] [place] [address] WBC Auto Ql (U) Negative Normal Negative [facility] Comment on above: Performed By: #### 1 [id number] #### [facility] [address] [place] [address] WBC LM.HPF (Urine sed) [#/Area] 0-5 Normal 0-5 [facility] Comment on above: Performed By: #### 1 [id number] #### [facility] [address] [place] [address] Urology Office/Clinic Noteon 12-09-2022 Urology Office/Clinic Note [...] cystoscopy, urine cytology and CT urogram from [facility] 06/10/21 noted no filling defects or [...] 25 mL. 5. Aspirin long-term use (Z79.82: roasterman (current) use of aspirin) Risk of bleeding with procedures. Follow up in 1 yr. All questions/concerns were discussed. Pt to call the office if she encounters any issues prior. Pt acknowledges understanding. Follow-up With When Contact Information SADAF WESTON PA-C, [facility] In 1 day [address] [facility] [place] [address] Additional Instructions: Patient Education Hematuria, Adult Documentation [...] to refusal (more content not included)... Normal [facility] Comment on above: Result Comment: Elec tronically Signed By: SADAF WESTON PA-C\.br\Date and Time Signed: 12/09/22 16:21 EDT\.br\Electronically Co-Signed By: María Samuel\.br\Date and Time Co-Signed: 12/09/22 15:13 EDT Reminderson 12-01-2022 Reminders - From: Divya Pitt To: PROSPER - Recallsofi Lujulito; Sent: 11/26/2021 09:02:57 EDT Show up: 11/05/2022 09:02:00 EDT Subject: renal US Reminder/Recall schedule prior to patients 12/02/2022 office visit Renal US scheduled for 12/02/22 @ [facility] Follow up has been rescheduled with VASILIY 12/09/22. [facility] MG MAMM RT DIAG FUon 023 MG MAMM RT DIAG FU Patient: PEARL JONES Exam Date: 10/05/2022 : 1950 Gender:F Ordering : DR GINO CARRASQUILLO M.D. Admission #: [id number] Family : Order #: [id number] CLICK HERE TO VIEW EXAM RADIOLOGY REPORT [...] Treatments None Family Cancers None LOCATION: [facility] BREAST COMPOSITION: Heterogeneously dense,which may obscure small [...] M.D. on 10/05/2022 at 08:35 Normal [facility] US BREAST RIGHT LIMITEDon US BREAST RIGHT LIMITED Patient: PEARL JONES Exam Date: 10/05/2022 : 1950 Gender:F Ordering : DR GINO CARRASQUILLO M.D. Admission #: [id number] Family : Order #: [id number] CLICK HERE TO VIEW EXAM RADIOLOGY REPORT [...] Treatments None Family Cancers None LOCATION: [facility] BREAST COMPOSITION: Heterogeneously dense,which may obscure small [...] Menon M.D. on 10/05/2022 at 08:35 Normal [facility] MG MAMM SCREEN 3D SALMA CADon 09-22-2022 MG MAMM SCREEN 3D SALMA CAD Patient: PEARL JONES Exam Date: 09/22/2022 : 1950 Gender:F Ordering : DR GINO CARRASQUILLO M.D. Admission #: [id number] Family : Order #: [id number] CLICK HERE TO VIEW EXAM RADIOLOGY REPORT [...] Treatments None Family Cancers None LOCATION: [facility] BREAST COMPOSITION: Heterogeneously dense,which may obscure small [...] Hooker MD on 09/23/2022 at 08:48 Normal [facility] CBC AUTO DIFFon 08-12-2022 BASO # 0.0 103/ul Normal 0.0-0.1 [facility] Comment on above: Performed By: #### C BC ####[facility] Wqrcewndie[address] [place] [address]Dr. Silvino Clifton Basophils/100 WBC (Bld) 0.7 % Normal 0.2-2.0 [facility] Comment on above: Performed By: #### C BC ####[facility] Fyqtonarvp[address] [place], [place] [address]Dr. Silvino Clifton EO # 0.1 103/ul Normal 0.0-0.7 [facility] Comment on above: Performed By: #### C BC ####[facility] Xovqwgsbeu[address] [place], [place] [address]Dr. Silvino Clifton Eosinophils/100 WBC (Bld) 2.1 % Normal 0.9-7.0 [facility] Comment on above: Performed By: #### C BC ####[facility] Vnthkevply[address] [place], [place] [address]Dr. Silvino Clifton Erythrocyte distribution width (RBC) [Ratio] 12.3 % Normal 11.0-15.0 [facility] Comment on above: Performed By: #### C BC ####[facility] Vhpmpylxvq[address] [place], [place] [address]Dr. Silvino Clifton Hematocrit (Bld) [Volume fraction] 38.2 % Normal 36.0-48.0 [facility] Comment on above: Performed By: #### C BC ####[facility] Ailkwrxdfp[address] [place], [place] [address]Dr. Silvino Clifton Hemoglobin (Bld) [Mass/Vol] 12.8 g/dL Normal 12.0-16.0 [facility] Comment on above: Performed By: #### C BC ####[facility] Uewnwoqetn[address] [place], [place] [address]Dr. Silvino Clifton IG # 0.02 10e3/ul Normal 0.00-0.03 [facility] Comment on above: Performed By: #### C BC ####[facility] Stfhjftdvc[address] [place], [place] [address]Dr. Silvino Clifton IG % 0.3 % Normal 0.0-0.5 [facility] Comment on above: Performed By: #### C BC ####[facility] Fvpumqobbo7[address] [place] [address]Dr. Silvino Clifton LYMPH # 2.2 103/ul Normal 1.2-3.8 [facility] Comment on above: Performed By: #### C BC ####[facility] Rzgronvefm[address] [place] [id number]. Silvino Clifton Lymphocytes/100 WBC (Bld) 35.4 % Normal 20.5-60.0 [facility] Comment on above: Performed By: #### C BC ####[facility] Imtcfqhtwv2764 [place] [address]Dr. Silvino Clifton MANUAL DIFF REQ NO Normal [facility] Comment on above: Performed By: #### C BC ####[facility] Iziodvrxtx1868 [place] [address]Dr. Silvino Clifton MCH (RBC) [Entitic mass] 28.0 pg Normal 26.7-34.0 [facility] Comment on above: Performed By: #### C BC ####[facility] Emivgctdpy6773 [place] [id number]. Silvino Clifton MCHC (RBC) [Mass/Vol] 33.5 g/dL Normal 29.9-35.2 [facility] Comment on above: Performed By: #### C BC ####[facility] Hdtmq[address] [place], [place] [id number]. Silvino Clifton MCV (RBC) [Entitic vol] 83.6 fL Normal 81.0-99.0 [facility] Comment on above: Performed By: #### C BC ####[facility] Rguoqbphoc[address] [place], [place] [id number]. Silvino Clifton MONO # 0.4 103/ul Normal 0.3-0.8 [facility] Comment on above: Performed By: #### C BC ####[facility] Rbsoemdnik83[address] [place] [id number]. Silvino Clifton Monocytes/100 WBC (Bld) 7.2 % Normal 1.7-12.0 [facility] Comment on above: Performed By: #### C BC ####[facility] Qrdhouujoa7861 [place] [phone]. Silvino Clifton NEUT # 3.3 103/ul Normal 1.4-6.5 [facility] Comment on above: Performed By: #### C BC ####[facility] Gplaxlyrch0449 [place] [id number] Clifton Neutrophils/100 WBC (Bld) 54.3 % Normal 43.0-75.0 [facility] Comment on above: Performed By: #### C BC ####[facility] Txebuybfsq5270 [place] [phone] Clifton Platelet mean volume (Bld) [Entitic vol] 11.3 fL Normal 9.5-13.5 [facility] Comment on above: Performed By: #### C BC ####[facility] Cbnuiqxarr1386 [place] [address]Dr. Silvino Clifton PLT 208 103/ul Normal 150-450 [facility] Comment on above: Performed By: #### C BC ####[facility] Eaqgasaace7911 [place] [id number] Clifton RBC 4.57 106/ul Normal 4.20-5.40 [facility] Comment on above: Performed By: #### C BC ####[facility] Crofipdkha5270 [place] [id number] Clifton WBC 6.2 103/ul Normal 4.0-11.0 [facility] Comment on above: Performed By: #### C BC ####[facility] Adglgjhfxl9693 [place] [phone]. Silvino Clifton GLYCOHEMOGLOBIN A1Con 2022 ADA RECOMMENDATION SEE BELOW Normal [facility] Comment on above: Result Comment: ADA RECOMMENDED LIMIT 4.0 - 6.0 ADA THERAPEUTIC TARGET < 7.0 ACTION SUGGESTED > 7.0 Performed By: #### A 1C #### [facility] [address] [id number] Silvino Clifton Glucose [Mass/Vol] 169 mg/dL Normal [facility] Comment on above: Performed By: #### A 1C #### [facility] [address] [place], [place] [address] Dr. Silvino Clifton HbA1c (Bld) [Mass fraction] 7.5 % Critically high 4.5-6.2 [facility] Comment on above: Performed By: #### A 1C #### [facility] [address] [place], [place] [address] Dr. Silvino Clifton LIPID PROFILEon 08-12-2022 CHOL-HDL RATIO NORM SEE BELOW Normal [facility] Comment on above: Result Comment: 3.3 - 4.4 LOW RISK 4.4 - 7.1 AVERAGE RISK 7.1 - 11.0 MODERATE RISK >11.0 HIGH RISK Performed By: #### M G, CMP, LIPID ####[facility] Cvodrsbrvk7664 [place], [place] [address]Gq. Silvino Clifton Cholesterol [Mass/Vol] 185 mg/dL Normal <=200 [facility] Comment on above: Performed By: #### M G, CMP, LIPID ####[facility] Knxklisbve1888 [place], [place] [address]Gv. Silvino Clifton Cholesterol in HDL [Mass/Vol] 58 mg/dL Normal 40-60 [facility] Comment on above: Performed By: #### M G, CMP, LIPID ####[facility] Mkpdogefrt2893 [place], [place] [address]Gw. Silvino Clifton Cholesterol in LDL [Mass/Vol] 95.4 mg/dL Normal [facility] Comment on above: Performed By: #### M G, CMP, LIPID ####[facility] Plzwbckbxt1037 [place], [place] [address]Wu. Silvino Clifton Cholesterol.total/Ch olesterol in HDL [Mass ratio] 3.2 {ratio} Normal [facility] Comment on above: Performed By: #### M G, CMP, LIPID ####[facility] Lnavmxldag6092 [place], [place] [address]Iv. Silvino Clifton HDL NORMAL > or = 60 mg/dl - LO W CARDIOVASCULAR RISK <40 mg/dl - HIGH CARDIOVASCULAR RISK Normal [facility] Comment on above: Performed By: #### M G, CMP, LIPID ####[facility] Aarmzsustn9442 [place] [address]Dr. Silvino Clifton LDL CALC NORMAL SEE BELOW Normal [facility] Comment on above: Result Comment: <100 mg/dl OPTIMAL 100 - 129 mg/dl NEAR OR ABOVE OPTIMAL 130 - 159 mg/dl BORDERLINE HIGH 160 - 189 mg/dl HIGH >190 mg/dl VERY HIGH Performed By: #### M G, CMP, LIPID ####[facility] Albturedct1717 [place] [phone]. Silvino Clifton Triglyceride [Mass/Vol] 158 mg/dL Critically high <=150 [facility] Comment on above: Performed By: #### M [place], CMP, LIPID ####[facility] Lcumiprwhp9025 [place] [address]Dr. Silvino Clifton VLDL CALC 31.6 mg/dL Normal [facility] Comment on above: Performed By: #### [place], CMP, LIPID ####[facility] Arwwmgtwmn1569 [place] [address]Dr. Silvino Clifton MAGNESIUMon 08-12-2022 Magnesium [Mass/Vol] 1.6 mg/dL Critically low 1.8-2.4 [facility] Comment on above: Performed By: #### M [place], CMP, LIPID ####[facility] Trlqljtjrj0875 [place] [address]Dr. Silvino Clifotn PROF 14(COMP METB)on 023 Albumin [Mass/Vol] 4.0 g/dL Normal 3.4-5.0 [facility] Comment on above: Performed By: #### M G, CMP, LIPID ####[facility] Fiepqdrkop7208 [place] [address]Dr. Silvino Clifton Albumin/Globulin [Mass ratio] 1.2 {ratio} Normal [facility] Comment on above: Performed By: #### M G, CMP, LIPID ####[facility] Abvhamzwzv7690 [place] [phone]. Silvino Clifton ALP [Catalytic activity/Vol] 61 U/L Normal 46-116 [facility] Comment on above: Performed By: #### M G, CMP, LIPID ####[facility] Qqqvxwsygc2259 [place] [address]Dr. Silvino Clifton ALT [Catalytic activity/Vol] 17 U/L Normal 14-59 [facility] Comment on above: Performed By: #### M G, CMP, LIPID ####[facility] Luzrzmgzst1938 [place] [address]Dr. Silvino Clifton Anion gap [Moles/Vol] 11.8 mmol/L Normal [facility] Comment on above: Performed By: #### M G, CMP, LIPID ####[facility] Dbmbsngcub4126 [place] [address]Dr. Silvino Clifton AST [Catalytic activity/Vol] 16 U/L Normal 15-37 [facility] Comment on above: Performed By: #### M G, CMP, LIPID ####[facility] Cjwsbbayhc1601 [place] [address]Dr. Silvino Clifton Bilirubin [Mass/Vol] 0.4 mg/dL Normal 0.2-1.0 [facility] Comment on above: Performed By: #### M G, CMP, LIPID ####[facility] Bvesmnlbip[address] [place], [place] [address]Dr. Silvino Clifton Calcium [Mass/Vol] 9.3 mg/dL Normal 8.5-10.1 [facility] Comment on above: Performed By: #### M G, CMP, LIPID ####[facility] Uiklpsudcq9054 [place] [address]Dr. Silvino Clifton Chloride [Moles/Vol] 106 mmol/L Normal 98-107 [facility] Comment on above: Performed By: #### M G, CMP, LIPID ####[facility] Zfdpmstylw9458 [place] [address]Dr. Silvino Clifton CO2 [Moles/Vol] 28.3 mmol/L Normal 21.0-32.[address] [facility] Comment on above: Performed By: #### M G, CMP, LIPID ####[facility] Thwchjxtut[address] [place], [place] [address]Dr. Silvino Clifton Creatinine [Mass/Vol] 0.72 mg/dL Normal 0.55-1.02 [facility] Comment on above: Performed By: #### M G, CMP, LIPID ####[facility] Gwdqgysnin8392 [place] [address]Dr. Silvino Clifton EGFR-AF GERMAN >60 Normal >=[address] [facility] Comment on above: Performed By: #### M G, CMP, LIPID ####[facility] Hziqtbwjyy5808 [place] [address]Dr. Silvino Clifton EGFR-NON AF GERMAN >60 Normal >=60 [facility] Comment on above: Performed By: #### M [place], CMP, LIPID ####[facility] Upgwjwdffz6060 [place] [address]Dr. Silvino Etienne Globulin (S) [Mass/Vol] 3.3 g/dL Normal [facility] Comment on above: Performed By: #### M [place], CMP, LIPID ####[facility] Jhaqpbmzwz8243 [place] [address]Dr. Silvino Etienne Glucose [Mass/Vol] 167 mg/dL Critically high 74-106 [facility] Comment on above: Performed By: #### M [place], CMP, LIPID ####[facility] Exewaexazj7066 [place] [address]Dr. Suzyoriana Clifton Potassium [Moles/Vol] 4.1 mmol/L Normal 3.5-5.1 [facility] Comment on above: Performed By: #### M G, CMP, LIPID ####[facility] Vsrcfmrftj5533 [place] [address]Dr. Suzyoriana Clifton Protein [Mass/Vol] 7.3 g/dL Normal 6.4-8.2 [facility] Comment on above: Performed By: #### M G, CMP, LIPID ####[facility] Exzsapamqj5503 [place] [address]Dr. Silvino Clifton Sodium [Moles/Vol] 142 mmol/L Normal 136-145 [facility] Comment on above: Performed By: #### M G, CMP, LIPID ####[facility] Yntjopwmfh5776 [place], [place] [address]Ou. Silvino Clifton Urea nitrogen [Mass/Vol] 13.0 mg/dL Normal 7.0-18.0 [facility] Comment on above: Performed By: #### M G, CMP, LIPID ####[facility] Wsgaukeoyo3519 [place], [place] [address]Jv. Silvino Clifton Urea nitrogen/Creatinine [Mass ratio] 18.1 mg/mg Normal [facility] Comment on above: Performed By: #### M G, CMP, LIPID ####[facility] Zblqzqgmem4572 [place], [place] [address]Kr. Silvino Clifton XR LSPINE 2_3 VIEWSon 2022 [...] by: KYLIE MENON Date: 2022-08-12 09:32 Normal [facility] XR DEXA BONE DENSITYon 08-11 XR DEXA [...] by: KYLIE MENON Date: 2022-08-11 13:51 Normal [facility] CT CSPINE WO CONon CT CSPINE WO [...] JOSE M JESUS Date: 2022-03-09 11:40 Normal [facility] CT HEAD WO CONon 03-09-2022 CT [...] JOSE M JESUS Date: 2022-03-09 11:29 Normal [facility] PAP ACOG PANEL 2: 30 to 65on 01-30-2022 . . Normal [facility] Comment on above: Performed By: #### 4 [id number] ####[facility] Onokumijsu[address] [place] [address]DrNatividad Clifton Age Gdln ACOG Testing Comment [facility] Comment on above: Result Comment: <21 or >65 or no age provided Performed By: #### 4 [id number] ####[facility] Ztwszaidlg9538 [place] [address]Dr. Silvino Clifton DIAGNOSIS: Comment [facility] Comment on above: Result Comment: NEGA TIVE FOR INTRAEPITHELIAL LESION OR MALIGNANCY. CELLULAR CHANGES ASSOCIATED WITH ATROPHY ARE PRESENT. Performed By: #### 4 [id number] ####[facility] Wtzknlghdt[address] [place], [place] [address]DrNatividad Clifton Methodology: Comment [facility] Comment on above: Result Comment: This liquid based ThinPrep(R) pap test was screened with the use of an image guided system. Performed By: #### 4 [id number] ####[facility] Wlsrmvsdgk[address] [place], [place] [address]DrNatividad Clifton Note: Comment [facility] Comment on above: Result Comment: The Pap smear is a screening test designed to aid in the detection of premalignant and malignant conditions of the uterine cervix. It is not a diagnostic procedure and should not be used as the sole means of detecting cervical cancer. Both false-positive and false-negative reports do occur. . Performed By: #### 4 [id number] ####[facility] Mzrhorcxag6624 [place] [address]DrNatividad Clifton Performed by: Comment Normal [facility] Comment on above: Result Comment: Isabel Gong, Architectural Examiner (ASCP) Performed By: #### 4 [id number] ####[facility] Prdxpjfswj6342 [place] [address]DrNatividad Clifton Specimen adequacy: Comment Normal [facility] Comment on above: Result Comment: Sati sfactory for evaluation. Performed By: #### 4 [id number] ####[facility] Puisthpjxj8004 [place], [place] [address]XkNatividad Clifton BASIC METABOLIC PANELon 07-0 BUN/CREATININE RATIO NOT APPLICABLE Normal 6-22 [facility] Comment on above: Order Comment: FASTI NG:YES FASTING: YES Performed By: #### 1 0165, 496 #### [facility] [address], [address] [place] [address] Centrifugal Extractor Operator: Scott Nichols MD Calcium [Mass/Vol] 9.6 mg/dL Normal 8.6-10.4 [facility] Comment on above: Order Comment: FASTI NG:YES FASTING: YES Performed By: #### 1 0165, 496 #### [facility] [address], [address] [place] [address] Centrifugal Extractor Operator: Scott Nichols MD Chloride [Moles/Vol] 104 mmol/L Normal 98-110 [facility] Comment on above: Order Comment: FASTI NG:YES FASTING: YES Performed By: #### 1 0165, 496 #### [facility] [address], [address] [place] [address] Centrifugal Extractor Operator: Scott Nichols MD CO2 [Moles/Vol] 31 mmol/L Normal 20-32 [facility] Comment on above: Order Comment: FASTI NG:YES FASTING: YES Performed By: #### 1 0165, 496 #### [facility] [address], [address] [place] [address] Centrifugal Extractor Operator: Scott Nichols MD Creatinine [Mass/Vol] 0.64 mg/dL Normal 0.60-0.93 [facility] Comment on above: Order Comment: FASTI NG:YES FASTING: YES Result Comment: For patients >49 years of age, the reference limit for Creatinine is approximately 13% higher for people identified as -German. Performed By: #### 1 0165, 496 #### [facility] [address], [address] [place] [address] Centrifugal Extractor Operator: Scott Nichols MD eGFR NON-AFR. GERMAN 90 mL/min/1.73m2 Normal > OR = 60 [facility] Comment on above: Order Comment: FASTI NG:YES FASTING: YES Performed By: #### 1 0165, 496 #### [facility] [address], [address] [place] [address] Centrifugal Extractor Operator: Scott Nichols MD GFR/1.73 sq M.predicted among blacks MDRD (S/P/Bld) [Vol rate/Area] 105 mL/min/{1.73_m2} Normal > OR = 60 [facility] Comment on above: Order Comment: FASTI NG:YES FASTING: YES Performed By: #### 1 0165, 496 #### [facility] [address], [address] [place] [address] Centrifugal Extractor Operator: Scott Nichols MD Glucose [Mass/Vol] 136 mg/dL High 65-99 [facility] Comment on above: Order Comment: FASTI NG:YES FASTING: YES Result Comment: Fasting reference interval For someone without known diabetes, a glucose value >125 mg/dL indicates that they may have diabetes and this should be confirmed with a follow-up test. Performed By: #### 1 0165, 496 #### [facility] [address], [address] [place] [address] Centrifugal Extractor Operator: Scott Nichols MD Potassium [Moles/Vol] 4.3 mmol/L Normal 3.5-5.3 [facility] Comment on above: Order Comment: FASTI NG:YES FASTING: YES Performed By: #### 1 0165, 496 #### [facility] [address], [address] [place] [address] Centrifugal Extractor Operator: Scott Nichols MD Sodium [Moles/Vol] 141 mmol/L Normal 135-146 [facility] Comment on above: Order Comment: FASTI NG:YES FASTING: YES Performed By: #### 1 0165, 496 #### [facility] [address], [address] [place] [address] Centrifugal Extractor Operator: Scott Nichols MD Urea nitrogen [Mass/Vol] 9 mg/dL Normal 7-25 [facility] Comment on above: Order Comment: FASTI NG:YES FASTING: YES Performed By: #### 1 0165, 496 #### [facility] [address], [address] [place] [address] Centrifugal Extractor Operator: Scott Nichols MD HEMOGLOBIN A1con 11-27-2021 HEMOGLOBIN [...] #### 1 0165, 496 #### [facility] [address], [address] [place], [place] [address] Centrifugal Extractor Operator: Scott Nichols MD URINALYSISOrdered By: Aggie Giron [...] AM) Normal Negative [facility] UA Auto SS [place].plasma/Lithi um.RBC (Bld) [Mass ratio] 0-3 /HPF Normal 0-3/HPF [facility] UA Auto SS Nitrite Ql (U) Negative (11/26/21 10:54 AM) Normal Negative [facility] UA Auto SS pH (U) 6.5 *NA* (11/26/21 10:54 AM) Invalid Interpretation Code 5.0 - 9.0 [facility] UA Auto SS Protein (U) [Mass/Vol] Negative (11/26/21 10:54 AM) Normal Negative [facility] UA Auto SS Specific gravity (U) [Rel density] <=1.005 *NA* (11/26/21 10:54 AM) Invalid Interpretation Code 1.005 - 1.030 [facility] UA Auto SS UA Spec Desc Clean Catch (11/26/21 10:54 AM) Normal [facility] UA Auto SS Urobilinogen Qn (U) 0.1183029 {Tyrell'U}/dL Normal 0.0 - 1.0 EU/dL [facility] UA Auto SS WBC Auto Ql (U) Negative (11/26/21 10:54 AM) Normal Negative [facility] UA Auto SS WBC LM.HPF (Urine sed) [#/Area] 0-5 /HPF Normal 0-5/HPF [facility] UA Auto SS CT ABD/PELVIS WO CONon [...] LOBITO YEE Date: 2021-11-24 01:04 Normal [facility] CBC AUTO DIFFon 11-12-2021 BASO # 0.1 103/ul Normal 0.0-0.1 [facility] Comment on above: Performed By: #### C BC ####[facility] Mgqlzoekev[address] [place] [address]Dr. Silvino Clifton Basophils/100 WBC (Bld) 0.6 % Normal 0.2-2.0 [facility] Comment on above: Performed By: #### C BC ####[facility] Ivrrubymvu2108 [place] [address]Dr. Silvino Clifton EO # 0.1 103/ul Normal 0.0-0.7 [facility] Comment on above: Performed By: #### C BC ####[facility] Ujtvgduwxt1549 [place] [address]Dr. Silvino Clifton Eosinophils/100 WBC (Bld) 1.3 % Normal 0.9-7.0 [facility] Comment on above: Performed By: #### C BC ####[facility] Azkgcyyzgc1984 [place] [address]Dr. Silvino Clifton Erythrocyte distribution width (RBC) [Ratio] 11.9 % Normal 11.0-15.0 [facility] Comment on above: Performed By: #### C BC ####[facility] Klhqijmtsq99[address] [place] [address]Dr. Silvino Clifton Hematocrit (Bld) [Volume fraction] 37.6 % Normal 36.0-48.0 [facility] Comment on above: Performed By: #### C BC ####[facility] Kqbghjxqus1767 [place] [address]Dr. Silvino Clifton Hemoglobin (Bld) [Mass/Vol] 13.0 g/dL Normal 12.0-16.0 [facility] Comment on above: Performed By: #### C BC ####[facility] Bcehnnvsly10[address] [place] [address]Dr. Silvino Clifton IG # 0.04 10e3/ul Critically high 0.00-0.[address] [facility] Comment on above: Performed By: #### C BC ####[facility] Xxxucirjjc1191 [place] [address]Dr. Silvino Clifton IG % 0.5 % Normal 0.0-0.5 [facility] Comment on above: Performed By: #### C BC ####[facility] Ilbhnlyefu5940 [place] [id number]. Silvino Etienne LYMPH # 1.5 103/ul Normal 1.2-3.8 [facility] Comment on above: Performed By: #### C BC ####[facility] Uozfxwmlzv1404 [place] [id number]. Silvino Etienne Lymphocytes/100 WBC (Bld) 18.9 % Critically low 20.5-60.0 [facility] Comment on above: Performed By: #### C BC ####[facility] Bcpjhgtcfl74[address] [place] [address]Dr. Suzyoriana Clifton MANUAL DIFF REQ NO Normal [facility] Comment on above: Performed By: #### C BC ####[facility] Eovljwwbqg4843 [place] [address]Dr. Silvino Etienne MCH (RBC) [Entitic mass] 29.7 pg Normal 26.7-34.0 [facility] Comment on above: Performed By: #### C BC ####[facility] Nfkblmnaft5603 [place] [address]Dr. Silvino Etienne MCHC (RBC) [Mass/Vol] 34.6 g/dL Normal 29.9-35.2 [facility] Comment on above: Performed By: #### C BC ####[facility] Rijnhdqdip6[address] [place] [address]Dr. Silvino Etienne MCV (RBC) [Entitic vol] 85.8 fL Normal 81.0-99.0 [facility] Comment on above: Performed By: #### C BC ####[facility] Pznptiecqo6903 [place] [id number]. Silvino Etienne MONO # 0.5 103/ul Normal 0.3-0.8 [facility] Comment on above: Performed By: #### C BC ####[facility] Qlyrpgzwit3826 [place] [address]Dr. Silvino Etienne Monocytes/100 WBC (Bld) 6.1 % Normal 1.7-12.0 [facility] Comment on above: Performed By: #### C BC ####[facility] Hoeuqwritg0882 [place] [id number]. Silvino Clifton NEUT # 5.8 103/ul Normal 1.4-6.5 [facility] Comment on above: Performed By: #### C BC ####[facility] Gjmrlyfvtx8138 [place] [id number]. Silvino Clifton Neutrophils/100 WBC (Bld) 72.6 % Normal 43.0-75.0 [facility] Comment on above: Performed By: #### C BC ####[facility] Xezczxbhzj3419 [place] [address]Dr. Silvino Clifton Platelet mean volume (Bld) [Entitic vol] 10.7 fL Normal 9.5-13.5 [facility] Comment on above: Performed By: #### C BC ####[facility] [id number] [place] [address]Dr. Silvino Clifton PLT 182 103/ul Normal 150-450 [facility] Comment on above: Performed By: #### C BC ####[facility] [address] [place] [id number]. Silvino Clifton RBC 4.38 106/ul Normal 4.20-5.40 [facility] Comment on above: Performed By: #### C BC ####[facility] [address] [place] [address]Dr. Silvino Clifton WBC 8.0 103/ul Normal 4.0-11.0 [facility] Comment on above: Performed By: #### C BC ####[facility] F[address]af[address] [place], [place] [address]Dr. Silvino Clifton CT HEAD WO CONon 11-12-2021 [...] RAYNE JOHNSON Date: 2021-11-12 05:04 Normal [facility] ER URINE PROFILEon 2 Bilirubin Ql (U) Negative Normal NEGATIVE The [facility] Comment on above: Performed By: #### U MICRO, ERUR #### [facility] [address] [address] [address] Silvino Clifton Clarity (U) CLEAR Normal CLEAR [facility] Comment on above: Performed By: #### U MICRO, ERUR #### [facility] [address] [place] [address] Dr. Silvino Clifton Color (U) LT. YELLOW Normal YELLOW [facility] Comment on above: Performed By: #### U MICRO, ERUR #### [facility] [address] [place] [address] Dr. Silvino Clifton ERUAHD A micrscopic examina tion will be performed if indicated. Normal [facility] Comment on above: Performed By: #### U MICRO, ERUR #### [facility] [address] [place] [address] Dr. Silvino Clifton Glucose Ql (U) Negative Normal NEGATIVE The [facility] Comment on above: Performed By: #### U MICRO, ERUR #### [facility] [address] [address] [address] Silvino Clifton Hemoglobin Ql (U) SMALL Abnormal NEGATIVE The [facility] Comment on above: Performed By: #### U MICRO, ERUR #### [facility] [address] [address] [address] Silvino Clifton Ketones Ql (U) Negative Normal NEGATIVE The [facility] Comment on above: Performed By: #### U MICRO, ERUR #### [facility] [address] [place] [address] Dr. Silvino Clifton LEUKOCYTES Negative Normal NEGATIVE [facility] Comment on above: Performed By: #### U MICRO, ERUR #### [facility] [address] [address] [address] Silvino Clifton Nitrite Ql (U) Negative Normal NEGATIVE [facility] Comment on above: Performed By: #### U MICRO, ERUR #### [facility] [address] [address] [address] Silvino Clifton pH (U) 7.0 [pH] Normal 5-9 [facility] Comment on above: Performed By: #### U MICRO, ERUR #### [facility] [address] [address] [address] Silvino Clifton SPEC GRAVITY <=1.005 Abnormal 1.005-<=1.0 25 [facility] Comment on above: Performed By: #### U MICRO, ERUR #### [facility] [address] [place] [address] Dr. Silvino Clifton UA PROTEIN Negative Normal NEGATIVE/ TRACE [facility] Comment on above: Performed By: #### U MICRO, ERUR #### [facility] [address] [address] [address] Silvino Clifton UR MICRO IND INDICATED Normal [facility] Comment on above: Performed By: #### U MICRO, ERUR #### [facility] [address] [place] [address] Dr. Silvino Clifton Urobilinogen Qn (U) 0.2 {Tyrell'U}/dL Normal 0.2 - 1. 0 [facility] Comment on above: Performed By: #### U MICRO, ERUR #### [facility] [address] [address] [address] Silvino Clifton PROF 14(COMP METB)on 022 Albumin [Mass/Vol] 4.2 g/dL Normal 3.4-5.0 [facility] Comment on above: Performed By: #### C MAGGIE HSTROPN ####[facility] [address] [place] [address] [address]Dr. Silvino Clifton Albumin/Globulin [Mass ratio] 1.2 {ratio} Normal [facility] Comment on above: Performed By: #### C MAGGIE HSTROPN ####[facility] [address] [place] [id number]. Silvino Clifton ALP [Catalytic activity/Vol] 65 U/L Normal 46-116 [facility] Comment on above: Performed By: #### C MAGGIE, HSTROPN ####[facility] [address] [place] [address]Dr. Silvino Clifton ALT [Catalytic activity/Vol] 21 U/L Normal 14-59 [facility] Comment on above: Performed By: #### C MAGGIE, HSTROPN ####[facility] [address] [place] [address]Dr. Silvino Clifton Anion gap [Moles/Vol] 12.5 mmol/L Normal [facility] Comment on above: Performed By: #### C MAGGIE, HSTROPN ####[facility] [address] [place] [address]Dr. Silvino Clifton AST [Catalytic activity/Vol] 17 U/L Normal 15-37 [facility] Comment on above: Performed By: #### C MAGGIE, HSTROPN ####[facility] [address] [place] [address]Dr. Suzyoriana Clifton Bilirubin [Mass/Vol] 0.5 mg/dL Normal 0.2-1.0 [facility] Comment on above: Performed By: #### C MAGGIE, HSTROPN ####[facility] [address] [place] [address]Dr. Suzyoriana Clifton Calcium [Mass/Vol] 9.0 mg/dL Normal 8.5-10.1 [facility] Comment on above: Performed By: #### C MAGGIE, HSTROPN ####[facility] [address] [place] [address]Dr. Silvino Clifton Chloride [Moles/Vol] 100 mmol/L Normal 98-107 [facility] Comment on above: Performed By: #### C MAGGIE, HSTROPN ####[facility] [address] [place] [address]Dr. Silvino Clifton CO2 [Moles/Vol] 26.8 mmol/L Normal 21.0-32.0 The [facility] Comment on above: Performed By: #### C MP, HSTROPN ####[facility] [address] [place] [address]Dr. Silvino Clifton Creatinine [Mass/Vol] 0.71 mg/dL Normal 0.55-1.02 [facility] Comment on above: Performed By: #### C MP, HSTROPN ####[facility] [address] [place] [address]Dr. Silvino Clifton EGFR-AF GERMAN >60 Normal >=60 [facility] Comment on above: Performed By: #### C MP, HSTROPN ####[facility] [address] [place] [address]Dr. Silvino Etienne EGFR-NON AF GERMAN >60 Normal >=60 [facility] Comment on above: Performed By: #### C MP, HSTROPN ####[facility] Q[address] [place] [address]Dr. Silvino Etienne Globulin (S) [Mass/Vol] 3.4 g/dL Normal [facility] Comment on above: Performed By: #### C MP, HSTROPN ####[facility] [address] [place] [address]Dr. Silvino Clifton Glucose [Mass/Vol] 185 mg/dL Critically high 74-106 [facility] Comment on above: Performed By: #### C MP, HSTROPN ####[facility] Hb[address]ojbe[address] [place] [address]Dr. Silvino Clifton Potassium [Moles/Vol] 3.3 mmol/L Critically low 3.5-5.1 [facility] Comment on above: Performed By: #### C MP, HSTROPN ####[facility] [address] [place] [address]Dr. Silvino Clifton Protein [Mass/Vol] 7.6 g/dL Normal 6.4-8.2 [facility] Comment on above: Performed By: #### C MP, HSTROPN ####[facility] [address] [place], [place] [address]Dr. Silvino Clifton Sodium [Moles/Vol] 136 mmol/L Normal 136-145 [facility] Comment on above: Performed By: #### C MAGGIE, HSTROPN ####[facility] [address] [place] [address]Dr. Silvino Clifton Urea nitrogen [Mass/Vol] 10.0 mg/dL Normal 7.0-18.0 [facility] Comment on above: Performed By: #### C MAGGIE, HSTROPN ####[facility] [address] [place] [address]Dr. Silvino Clifton Urea nitrogen/Creatinine [Mass ratio] 14.1 mg/mg Normal [facility] Comment on above: Performed By: #### C MAGGIE, HSTROPN ####[facility] [address] [place] [address]Dr. Silvino Clifton TROPONIN, HIGH SENSITIVITYon 11-12-2021 HSTROP 25.0 pg/mL Normal 4.0-51.3 [facility] Comment on above: Result Comment: CUT- OFF POINTS HAVE BEEN ESTABLISHED BASED ON THE FOURTH UNIVERSAL DEFINITIONS OF MYOCARDIAL INFARCTION. THE UPPER REFERENCE LIMIT (URL) OF TROPONIN, DEFINED THE 99TH PERCENTILE OF cTnI DISTRIBUTION IN A REFERENCE POPULATION, HAS BEEN CONFIRMED THE DECISION THRESHOLD FOR [place] DIAGNOSIS. Performed By: #### C MAGGIE, HSTROPN #### [facility] [address] [place] [address] Dr. Silvino Clifton URINE MICROSCOPIC ONLYon BACTERIA NONE SEEN Normal NONE SEEN [facility] Comment on above: Performed By: #### U MICRO, ERUR #### [facility] [address] [place] [address] Dr. Silvino Clifton Bacteria identified Cx Nom (U) NOT INDICATED Normal [facility] Comment on above: Performed By: #### U MICRO, ERUR #### [facility] [address] [place] [address] Dr. Silvino Clifton CAST NONE SEEN Normal NONE SEEN [facility] Comment on above: Performed By: #### U MICRO, ERUR #### [facility] [address] [place] [address] Dr. Silvino Clifton Crystals LM Nom (Urine sed) NONE SEEN Normal NONE SEEN [facility] Comment on above: Performed By: #### U MICRO, ERUR #### [facility] [address] [address] [address] Silvino Clifton Epithelial cells LM Ql (Urine sed) RARE Normal NONE SEEN /RARE [facility] Comment on above: Performed By: #### U MICRO, ERUR #### [facility] [address] [address] [address] Silvino Clifton MUCOUS NONE SEEN Normal NONE SEEN [facility] Comment on above: Performed By: #### U MICRO, ERUR #### [facility] [address] [place] [address] Dr. Silvino Clifton RBC 2-5 Abnormal 0-2 [facility] Comment on above: Performed By: #### U MICRO, ERUR #### [facility] [address] [place] [address] Dr. Silvino Clifton WBC NONE SEEN Normal NONE SEEN [facility] Comment on above: Performed By: #### U MICRO, ERUR #### [facility] [address] [place] [address] Dr. Silvino Clifton CBC (INCLUDES DIFF/PLT)on Basophils (Bld) [#/Vol] 0.041 10*3/uL Normal 0-200 [facility] Comment on above: Performed By: #### 6 399, 855, 7 #### [facility] [place] [address] [employer] Operator: Scott Nichols MD Basophils/100 WBC (Bld) 0.7 % Normal [facility] Comment on above: Performed By: #### 6 399, 892, 927 #### [facility] [place] [address] [employer] Operator: Scott Nichols MD Eosinophils (Bld) [#/Vol] 0.077 10*3/uL Normal 15-500 [facility] Comment on above: Performed By: #### 6 399, 622, 927 #### [facility] of [address], [address] [place] [address] [employer] Operator: Scott Nichols MD Eosinophils/100 WBC (Bld) 1.3 % Normal [facility] Comment on above: Performed By: #### 6 399, 622, 927 #### [facility] of [address], [address] [place] [address] [employer] Operator: Scott Nichols MD Erythrocyte distribution width (RBC) [Ratio] 12.3 % Normal 11.0-15.0 [facility] Comment on above: Performed By: #### 6 399, 622, 927 #### [facility] of [place] [address] [employer] Operator: Scott Nichols MD Hematocrit (Bld) [Volume fraction] 40.2 % Normal 35.0-45.0 [facility] Comment on above: Performed By: #### 6 399, 622, 927 #### [facility] of [address], [address] [place] [address] [employer] Operator: Scott Nichols MD Hemoglobin (Bld) [Mass/Vol] 13.8 g/dL Normal 11.7-15.5 [facility] Comment on above: Performed By: #### 6 399, 622, 927 #### [facility] of [place] [address] [employer] Operator: Scott Nichols MD Lymphocytes (Bld) [#/Vol] 1.682 10*3/uL Normal 850-3900 [facility] Comment on above: Performed By: #### 6 399, 622, 927 #### [facility] of [place] [address] [employer] Operator: Scott Nichols MD Lymphocytes/100 WBC (Bld) 28.5 % Normal [facility] Comment on above: Performed By: #### 6 399, 622, 927 #### [facility] of [place] [address] [employer] Operator: Scott Nichols MD MCH (RBC) [Entitic mass] 29.9 pg Normal 27.0-33.0 [facility] Comment on above: Performed By: #### 6 399, 622, 927 #### [facility] of [place] [address] [employer] Operator: Scott Nichols MD MCHC (RBC) [Mass/Vol] 34.3 g/dL Normal 32.0-36.0 [facility] Comment on above: Performed By: #### 6 399, 622, 927 #### [facility] of [place] [address] [employer] Operator: Scott Nichols MD MCV (RBC) [Entitic vol] 87.0 fL Normal 80.0-100.0 [facility] Comment on above: Performed By: #### 6 399, 622, 927 #### [facility] [place] [address] [employer] Operator: Scott Nichols MD Monocytes (Bld) [#/Vol] 0.407 10*3/uL Normal 200-950 [facility] Comment on above: Performed By: #### 6 399, 622, 927 #### [facility] [place] [address] [employer] Operator: Scott Nichols MD Monocytes/100 WBC (Bld) 6.9 % Normal [facility] Comment on above: Performed By: #### 6 399, 622, 927 #### [facility] of [place] [address] [employer] Operator: Scott Nichols MD Neutrophils (Bld) [#/Vol] 3.693 10*3/uL Normal 1082-2530 [facility] Comment on above: Performed By: #### 6 399, 622, 927 #### [facility] [place] [address] [employer] Operator: Scott Nichols MD Neutrophils/100 WBC (Bld) 62.6 % Normal [facility] Comment on above: Performed By: #### 6 399, 622, 927 #### [facility] [place] [address] [employer] Operator: Scott Nichols MD Platelet mean volume (Bld) [Entitic vol] 11.9 fL Normal 7.5-12.5 [facility] Comment on above: Performed By: #### 6 399, 622, 927 #### [facility] [place] [address] [employer] Operator: Scott Nichols MD Platelets (Bld) [#/Vol] 195 10*3/uL Normal 140-400 [facility] Comment on above: Performed By: #### 6 399, 622, 927 #### [facility] [place] [address] [employer] Operator: Scott Nichols MD RBC (Bld) [#/Vol] 4.62 10*6/uL Normal 3.80-5.10 [facility] Comment on above: Performed By: #### 6 399, 622, 927 #### [facility] [place] [address] [employer] Operator: Scott Nichols MD WBC (Bld) [#/Vol] 5.9 10*3/uL Normal 3.8-10.8 [facility] Comment on above: Performed By: #### 6 399, 622, 927 #### [facility] [place] [address] [employer] Operator: Scott Nichols MD MAGNESIUMon 09-10-2021 Magnesium [Mass/Vol] 1.7 mg/dL Normal 1.5-2.5 [facility] Comment on above: Order Comment: FASTI NG:UNKNOWN FASTING: UNKNOWN Performed By: #### 6 399, 622, 927 #### [facility] of [place] [address] [employer] Operator: Scott Nichols MD VITAMIN B12on 04-20-2022 Cobalamin (Vitamin B12) [Mass/Vol] 334 pg/mL Normal [...] 6 399, 622, 927 #### [facility] [address], [address] [place] [address] [employer] Operator: Scott Nichols MD ALBUMIN, RANDOM URINE W/CREA TININEon 07-29-2021 ALBUMIN, URINE 2.6 mg/dL Normal See Note: [facility] Comment on above: Result Comment: Refe rence Range: Reference Range Not established Performed By: #### 1 0231, 7600, 6517 #### [facility] [address], [address] [place] [address] [employer] Operator: Scott Nichols MD ALBUMIN/CREATININE RATIO, RANDOM URINE [...] diagnostic category. Performed By: #### 1 0231, 0, 6517 #### [facility] [address], [address] [place] [address] [employer] Operator: Scott Nichols MD Creatinine (U) [Mass/Vol] 53 mg/dL Normal 20-275 [facility] Comment on above: Performed By: #### 1 0231, 7600, 6517 #### [facility] [place] [address] [employer] Operator: Scott Nichols MD COMPREHENSIVE METABOLIC PANE Navid 07-29-2021 Albumin [Mass/Vol] 4.6 g/dL Normal 3.6-5.1 [facility] Comment on above: Performed By: #### 1 023, 7599, 6517 #### [facility] [address], [address] [place] [address] [employer] Operator: Scott Nichols MD Albumin/Globulin [Mass ratio] 1.6 {ratio} Normal 1.0-2.5 [facility] Comment on above: Performed By: #### 1 0231, 7599, 6517 #### [facility] [address], [address] [place] [address] [employer] Operator: Scott Nichols MD ALP [Catalytic activity/Vol] 55 U/L Normal 37-153 [facility] Comment on above: Performed By: #### 1 0231, 7599, 17 #### [facility] of [address], [address] [place] [address] [employer] Operator: Scott Nichols MD ALT [Catalytic activity/Vol] 11 U/L Normal 6-29 [facility] Comment on above: Result Comment: NO C OLLECTION DATE RECEIVED. WE HAVE USED THE DATE THE SPECIMEN WAS RECEIVED BY THIS LABORATORY THE COLLECTION DATE. IF THIS IS INCORRECT, PLEASE CONTACT CLIENT SERVICES. PHONE NUMBER: [phone] Performed By: #### 1 230, 7599, 6517 #### [facility] [address], [address] [place] [address] [employer] Operator: Scott Nichols MD AST [Catalytic activity/Vol] 11 U/L Normal 10-35 [facility] Comment on above: Performed By: #### 1 023, 7599, 6517 #### [facility] [address], [address] [place] [address] [employer] Operator: Scott Nichols MD Bilirubin [Mass/Vol] 0.6 mg/dL Normal 0.2-1.2 [facility] Comment on above: Performed By: #### 1 023, 7599, 6517 #### [facility] [address], [address] [place] [address] [employer] Operator: Scott Nichols MD BUN/CREATININE RATIO NOT APPLICABLE Normal 6-22 [facility] Comment on above: Performed By: #### 1 230, 7599, 65 #### [facility] [address], [address] [place] [address] [employer] Operator: Scott Nichols MD Calcium [Mass/Vol] 9.5 mg/dL Normal 8.6-10.4 [facility] Comment on above: Performed By: #### 1 230, 7599, 6517 #### [facility] [address], [address] [place] [address] [employer] Operator: Scott Nichols MD Chloride [Moles/Vol] 105 mmol/L Normal 98-110 [facility] Comment on above: Performed By: #### 1 230, 7599, 6517 #### [facility] [address], [address] [place] [address] [employer] Operator: Scott Nichols MD CO2 [Moles/Vol] 30 mmol/L Normal 20-32 [facility] Comment on above: Performed By: #### 1 230, 7599, 6517 #### [facility] [place] [address] [employer] Operator: Scott Nichols MD Creatinine [Mass/Vol] 0.62 mg/dL Normal 0.60-0.93 [facility] Comment on above: Result Comment: For patients >49 years of age, the reference limit for Creatinine is approximately 13% higher for people identified as -German. Performed By: #### 1 230, 7599, 6517 #### [facility] [address], [address] [place] [address] [employer] Operator: Scott Nichols MD eGFR NON-AFR. GERMAN 91 mL/min/1.73m2 Normal > OR = 60 [facility] Comment on above: Performed By: #### 1 230, 7599, 6517 #### [facility] [address], [address] [place] [address] [employer] Operator: Scott Nichols MD GFR/1.73 sq M.predicted among blacks MDRD (S/P/Bld) [Vol rate/Area] 106 mL/min/{1.73_m2} Normal > OR = 60 [facility] Comment on above: Performed By: #### 1 230, 7599, 6516 #### [facility] of [address], [address] [place] [address] [employer] Operator: Scott Nichols MD Globulin (S) [Mass/Vol] 2.8 g/dL Normal 1.9-3.7 [facility] Comment on above: Performed By: #### 1 230, 7599, 6516 #### [facility] of [place] [address] [employer] Operator: Scott Nichols MD Glucose [Mass/Vol] 124 mg/dL High 65-99 [facility] Comment on above: Result Comment: Fasting reference interval For someone without known diabetes, a glucose value between 100 and 125 mg/dL is consistent with prediabetes and should be confirmed with a follow-up test. Performed By: #### 1 230, 7599, 6516 #### [facility] of [address], [address] [place] [address] [employer] Operator: Scott Nichols MD Potassium [Moles/Vol] 3.7 mmol/L Normal 3.5-5.3 [facility] Comment on above: Performed By: #### 1 230, 7599, 6516 #### [facility] of [place] [address] [employer] Operator: Scott Nichosl MD Protein [Mass/Vol] 7.4 g/dL Normal 6.1-8.1 [facility] Comment on above: Performed By: #### 1 230, 7599, 6516 #### [facility] of [place] [address] [employer] Operator: Scott Nichols MD Sodium [Moles/Vol] 142 mmol/L Normal 135-146 [facility] Comment on above: Performed By: #### 1 230, 7599, 6516 #### [facility] of [place] [address] [place] [address] [employer] Operator: Scott Nichols MD Urea nitrogen [Mass/Vol] 8 mg/dL Normal 7-25 [facility] Comment on above: Performed By: #### 1 0231, 7600, 6517 #### [facility] [address], [address] [place] [address] [employer] Operator: Scott Nichols MD LIPID PANEL, [facility] Cholesterol [Mass/Vol] 156 mg/dL Normal <200 [facility] Comment on above: Performed By: #### 1 0231, 0, 6517 #### [facility] [address], [address] [place] [address] [employer] Operator: Scott Nichols MD Cholesterol in HDL [Mass/Vol] 67 mg/dL Normal > OR = 50 [facility] Comment on above: Performed By: #### 1 023, 7599, 6517 #### [facility] [place] [address] [employer] Operator: Scott Nichols MD Cholesterol in LDL [Mass/Vol] [...] LDL-C. Placido VENTURA et al. MACKENZIE. 2013;310(19): 2097-3838 (http://education.[employer]/faq/PDL520) Performed By: #### 1 0231, 7599, 6517 #### [facility] [place] [address] [employer] Operator: Scott Nichols MD Cholesterol.total/Ch olesterol in HDL [Mass ratio] 2.3 {ratio} Normal <5.0 [facility] Comment on above: Performed By: #### 1 0231, 7599, 6517 #### [facility] of [address], [address] [place] [address] [employer] Operator: Scott Nichols MD NON HDL CHOLESTEROL 89 mg/dL (calc) Normal <130 [facility] Comment on above: Result Comment: For patients with diabetes plus 1 major ASCVD risk factor, treating to a non-HDL-C goal of <100 mg/dL (LDL-C of <70 mg/dL) is considered a therapeutic option. Performed By: #### 1 230, 7599, 6517 #### [facility] of [address], [address] [place] [address] [employer] Operator: Scott Nichols MD Triglyceride [Mass/Vol] 85 mg/dL Normal <150 [facility] Comment on above: Performed By: #### 1 230, 7599, 6516 #### [facility] of [place] [address] [employer] Operator: cSott Nichols MD REFLEXIVE URINE CULTUREon REFLEXIVE URINE CULTURE Normal [facility] Comment on above: Result Comment: NO C ULTURE INDICATED Performed By: #### 3 020 #### [facility] of [place] [address] [employer] Operator: Scott Nichols MD URINALYSIS, COMPLETE W/REFLE X TO CULTUREon 02-06-2021 Appearance (U) CLEAR Normal CLEAR [facility] Comment on above: Performed By: #### 3 020 #### [facility] of [place] [address] [employer] Operator: Scott Nichols MD BACTERIA NONE SEEN Normal NONE SEEN [facility] Comment on above: Performed By: #### 3 020 #### [facility] of [place] [address] [employer] Operator: Scott Nichols MD Bilirubin Ql (U) Negative Normal NEGATIVE [facility] Comment on above: Performed By: #### 3 020 #### [facility] [place] [address] [employer] Operator: Scott Nichols MD Color (U) YELLOW Normal YELLOW [facility] Comment on above: Performed By: #### 3 020 #### [facility] of [place] [address] [employer] Operator: Scott Nichols MD Glucose Ql (U) Negative Normal NEGATIVE [facility] Comment on above: Performed By: #### 3 020 #### [facility] [place] [address] [employer] Operator: Scott Nichols MD HYALINE CAST NONE SEEN Normal NONE SEEN [facility] Comment on above: Performed By: #### 3 020 #### [facility] [place] [address] [employer] Operator: Scott Nichols MD Ketones Ql (U) Negative Normal NEGATIVE [facility] Comment on above: Performed By: #### 3 020 #### [facility] [place] [address] [employer] Operator: Scott Nichols MD Leukocyte esterase Test strip Ql (U) Negative Normal NEGATIVE [facility] Comment on above: Performed By: #### 3 020 #### [facility] [place] [address] [employer] Operator: Scott Nichols MD Nitrite Ql (U) Negative Normal NEGATIVE [facility] Comment on above: Performed By: #### 3 020 #### [facility] [place] [address] [employer] Operator: cSott Nichols MD OCCULT BLOOD TRACE Abnormal NEGATIVE [facility] Comment on above: Performed By: #### 3 020 #### [facility] [place] [address] [employer] Operator: Scott Nichols MD pH (U) 6.5 [pH] Normal 5.0-8.0 [facility] Comment on above: Performed By: #### 3 020 #### [facility] [place] [address] [employer] Operator: Scott Nichols MD Protein Ql (U) Negative Normal NEGATIVE [facility] Comment on above: Performed By: #### 3 020 #### [facility] [place] [address] [employer] Operator: Scott Nichols MD RBC NONE SEEN Normal < OR = 2 [facility] Comment on above: Performed By: #### 3 020 #### [facility] [place] [address] [employer] Operator: Scott Nichols MD Specific gravity (U) [Rel density] 1.008 Normal 1.001-1.035 [facility] Comment on above: Performed By: #### 3 020 #### [facility] [place] [address] [employer] Operator: Scott Nichols MD SQUAMOUS EPITHELIAL CELLS NONE SEEN Normal < OR = 5 [facility] Comment on above: Performed By: #### 3 020 #### [facility] [place] [address] [employer] Operator: Scott Nichols MD WBC NONE SEEN Normal < OR = 5 [facility] Comment on above: Performed By: #### 3 020 #### [facility] [place] [address] [employer] Operator: Scott Nichols MD BASIC METABOLIC PANEL 08- BUN/CREATININE RATIO NOT APPLICABLE Normal 6-22 [facility] Comment on above: Order Comment: FASTI NG:YESFASTING: YES Performed By: #### 3 020 #### [facility] [place] [address] [employer] Operator: Scott Nichols MD Calcium [Mass/Vol] 9.6 mg/dL Normal 8.6-10.4 [facility] Comment on above: Order Comment: FASTI NG:YESFASTING: YES Performed By: #### 3 020 #### [facility] [place] [address] [employer] Operator: Scott Nichols MD Chloride [Moles/Vol] 106 mmol/L Normal 98-110 [facility] Comment on above: Order Comment: FASTI NG:YESFASTING: YES Performed By: #### 3 020 #### [facility] [address], [address] [place] [address] [employer] Operator: Scott Nichols MD CO2 [Moles/Vol] 29 mmol/L Normal 20-32 [facility] Comment on above: Order Comment: FASTI NG:YESFASTING: YES Performed By: #### 3 020 #### [facility] [place] [address] [employer] Operator: Scott Nichols MD Creatinine [Mass/Vol] 0.69 mg/dL Normal 0.50-0.99 [facility] Comment on above: Order Comment: FASTI NG:YESFASTING: YES Result Comment: For patients >49 years of age, the reference limit for Creatinine is approximately 13% higher for people identified as -German. Performed By: #### 3 020 #### [facility] [place] [address] [employer] Operator: Scott Nichols MD eGFR NON-AFR. GERMAN 89 mL/min/1.73m2 Normal > OR = 60 [facility] Comment on above: Order Comment: FASTI NG:YESFASTING: YES Performed By: #### 3 020 #### [facility] [place] [address] [employer] Operator: Scott Nichols MD GFR/1.73 sq M.predicted among blacks MDRD (S/P/Bld) [Vol rate/Area] 103 mL/min/{1.73_m2} Normal > OR = 60 [facility] Comment on above: Order Comment: FASTI NG:YESFASTING: YES Performed By: #### 3 020 #### [facility] [place] [address] [employer] Operator: Scott Nichols MD Glucose [Mass/Vol] 139 mg/dL High 65-99 [facility] Comment on above: Order Comment: FASTI NG:YESFASTING: YES Result Comment: Fasting reference interval For someone without known diabetes, a glucose value >125 mg/dL indicates that they may have diabetes and this should be confirmed with a follow-up test. Performed By: #### 3 020 #### [facility] [address], [address] [place] [address] [employer] Operator: Scott Nichols MD Potassium [Moles/Vol] 3.9 mmol/L Normal 3.5-5.3 [facility] Comment on above: Order Comment: FASTI NG:YESFASTING: YES Performed By: #### 3 020 #### [facility] [address], [address] [place] [address] [employer] Operator: Scott Nichols MD Sodium [Moles/Vol] 140 mmol/L Normal 135-146 [facility] Comment on above: Order Comment: FASTI NG:YESFASTING: YES Performed By: #### 3 020 #### [facility] [address], [address] [place] [address] [employer] Operator: Scott Nichols MD Urea nitrogen [Mass/Vol] 11 mg/dL Normal 7-25 [facility] Comment on above: Order Comment: FASTI NG:YESFASTING: YES Performed By: #### 3 020 #### [facility] [address], [address] [place] [address] [employer] Operator: Scott Nichols MD Vital Signs Date Time Vital Sign Value Performing Clinician Facility 08-23-2023 15: Body height 157.5 cm [employer] Work Phone: [facility] [employer] 08-23-2023 15: Body mass index (BMI) [Ratio] 23.58 kg/m2 [employer] [facility] [employer] 08-23-2023 15: Body temperature 97.59 [degF] [employer] [facility] 08-23-2023 15: Body weight 58.47 kg Joaquin Furlong DO Work Phone: [facility] [facility] 08-23-2023 15:14-0400 Diastolic blood pressure 60 mm[Hg] Joaquin Furlong DO Work Phone: [facility] 08-23-2023 15:14-0400 Heart rate 77 /min Joaquin Furlong DO Work Phone: [facility] [employer] 08-23-2023 15:14-0400 Respiratory rate 18 /min Joaquin Furlong DO Work Phone: [facility] 08-23-2023 15:14-0400 SaO2% (BldA) [Mass fraction] 98 % Joaquin Furlong DO Work Phone: [facility] [employer] 08-23-2023 15:14-0400 Systolic blood pressure 110 mm[Hg] Joaquin Furlong DO Work Phone: [facility] 07-06-2023 15:49-0500 Body height 157.5 cm Joaquin Furlong DO Work Phone: [facility] [employer] 07-06-2023 15:49-0500 Body mass index (BMI) [Ratio] 24.23 kg/m2 Joaquin Furlong DO Work Phone: [facility] 07-06-2023 15:49-0500 Body temperature 97.81 [degF] Joaquin Furlong DO Work Phone: [facility] 07-06-2023 15:49-0500 Body weight 60.1 kg Joaquin Furlong DO Work Phone: [facility] [employer] 07-06-2023 15:49-0500 Diastolic blood pressure 70 mm[Hg] Joaquin Furlong DO Work Phone: [facility] 07-06-2023 15:49-0500 Heart rate 85 /min Joaquin Furlong DO Work Phone: [facility] 07-06-2023 15:49-0500 SaO2% (BldA) [Mass fraction] 98 % Joaquin Devine DO Work Phone: [employer] 07-06-2023 15:49-0500 Systolic blood pressure 122 mm[Hg] Joaquin Devine DO Work Phone: [employer] 06-09-2023 09:30-0500 Body height 151.13 cm Gino Carrasquillo Other [employer] Other 06-09-2023 09:30-0500 Body mass index (BMI) [Ratio] 25.62 kg/m2 Gino Carrasquillo Other [employer] Other 06-09-2023 09:30-0500 Body weight 58.51 kg Gino Carrasquillo Other [employer] Other 06-09-2023 09:30-0500 Diastolic blood pressure 76 mm[Hg] Gino Carrasquillo Other [employer] Other 06-09-2023 09:30-0500 Systolic blood pressure 122 mm[Hg] Gino Carrasquillo Other [employer] Other 04-13-2023 13:45-0500 Body height 151.13 cm Gino Carrasquillo Other [employer] Other 04-13-2023 13:45-0500 Body mass index (BMI) [Ratio] 25.7 kg/m2 Gino Carrasquillo Other [employer] Other 04-13-2023 13:45-0500 Body weight 58.7 kg Gino Carrasquillo Other [employer] Other 04-13-2023 13:45-0500 Diastolic blood pressure 70 mm[Hg] Gino Carrasquillo Other [employer] Other 04-13-2023 13:45-0500 SaO2% (BldA) [Mass fraction] 97 % Gino Carrasquillo Other [employer] Other 04-13-2023 13:45-0500 Systolic blood pressure 108 mm[Hg] Gino Carrasquillo Other [employer] Other 02-16-2023 13:30-0400 Body height 151.13 cm Gino Carrasquillo Other [employer] Other 02-16-2023 13:30-0400 Body mass index (BMI) [Ratio] 26.01 kg/m2 Gino Carrasquillo Other [employer] Other 02-16-2023 13:30-0400 Body weight 59.42 kg Gino Carrasquillo Other [employer] Other 02-16-2023 13:30-0400 Diastolic blood pressure 80 mm[Hg] Gino Carrasquillo Other [employer] Other 02-16-2023 13:30-0400 SaO2% (BldA) [Mass fraction] 97 % Gino Carrasquillo Other [employer] Other 02-16-2023 13:30-0400 Systolic blood pressure 122 mm[Hg] Gino Carrasquillo Other [employer] Other 02-04-2023 14:00-0400 Body height 151.13 cm Gino Carrasquillo Other [employer] Other 02-04-2023 14:00-0400 Body mass index (BMI) [Ratio] 26.29 kg/m2 Gino Carrasquillo Other [employer] Other 02-04-2023 14:00-0400 Body weight 60.06 kg Gino Carrasquillo Other [employer] Other 02-04-2023 14:00-0400 Diastolic blood pressure 77 mm[Hg] Gino Carrasquillo Other [employer] Other 02-04-2023 14:00-0400 Systolic blood pressure 146 mm[Hg] Gino Carrasquillo Other [employer] Other 01-28-2023 09:45-0400 Body height 151.13 cm Gino Carrasquillo Other [employer] Other 01-28-2023 09:45-0400 Body mass index (BMI) [Ratio] 26.29 kg/m2 Gino Carrasquillo Other [employer] Other 01-28-2023 09:45-0400 Body weight 60.06 kg Gino Carrasquillo Other [employer] Other 01-28-2023 09:45-0400 Diastolic blood pressure 79 mm[Hg] Gino Carrasquillo Other [employer] Other 01-28-2023 09:45-0400 Systolic blood pressure 126 mm[Hg] Gino Carrasquillo Other [employer] Other 09-08-2022 15:00-0400 Body height 151.13 cm Gino Carrasquillo Other [employer] Other 09-08-2022 15:00-0400 Body mass index (BMI) [Ratio] 26.61 kg/m2 Gino Carrasquillo Other [employer] Other 09-08-2022 15:00-0400 Body weight 60.78 kg Gino Carrasquillo Other [employer] Other 09-08-2022 15:00-0400 Diastolic blood pressure 78 mm[Hg] Gino Carrasquillo Other [employer] Other 09-08-2022 15:00-0400 SaO2% (BldA) [Mass fraction] 97 % Gino Carrasquillo Other [employer] Other 09-08-2022 15:00-0400 Systolic blood pressure 118 mm[Hg] Gino Carrasquillo Other [employer] Other 08-27-2022 14:30-0400 Body height 151.13 cm Gino Carrasquillo Other [employer] Other 08-27-2022 14:30-0400 Body mass index (BMI) [Ratio] 26.41 kg/m2 Gino Carrasquillo Other [employer] Other 08-27-2022 14:30-0400 Body weight 60.33 kg Gino Carrasquillo Other [employer] Other 08-27-2022 14:30-0400 Diastolic blood pressure 74 mm[Hg] Gino Carrasquillo Other [employer] Other 08-27-2022 14:30-0400 SaO2% (BldA) [Mass fraction] 95 % Gino Carrasquillo Other [employer] Other 08-27-2022 14:30-0400 Systolic blood pressure 120 mm[Hg] Gino Carrasquillo Other [employer] Other 08-10-2022 14:30-0400 Body height 151.13 cm Gino Carrasquillo Other [employer] Other 08-10-2022 14:30-0400 Body mass index (BMI) [Ratio] 26.81 kg/m2 Gino Carrasquillo Other [employer] Other 08-10-2022 14:30-0400 Body weight 61.24 kg Gino Carrasquillo Other [employer] Other 08-10-2022 14:30-0400 Diastolic blood pressure 74 mm[Hg] Gino Carrasquillo Other [employer] Other 08-10-2022 14:30-0400 SaO2% (BldA) [Mass fraction] 97 % Gino Carrasquillo Other [employer] Other 08-10-2022 14:30-0400 Systolic blood pressure 126 mm[Hg] Gino Carrasquillo Other [employer] Other 11-26-2021 08:12-0400 Blood Pressure Location Norma Lue [facility] 11-26-2021 08:12-0400 Diastolic blood pressure 82 mm[Hg] [facility] 11-26-2021 08:12-0400 Heart rate 66 /min [facility] 11-26-2021 08:12-0400 Systolic blood pressure 139 mm[Hg] Norma Lue [facility] [place] Encounters Encounter Date Encounter Type Care Provider Facility Start: 10-07-2023 End: 10-07-2023 ambulatory [facility] Start: 09-14-2023 End: 09-14-2023 ambulatory [facility] Start: 08-26-2023 Refill Suki Maria C [facility] Start: 08-23-2023 End: 08-23-2023 ambulatory [facility] Start: 08-23-2023 End: 08-23-2023 Office outpatient visit 15 minutes Joaquin Devine DO [facility] Comment on above: Type 2 diabetes ruma itus without complication, without long- term current use of insulin ([facility]) (Primary Dx); Hyperlipidemia, unspecified hyperlipidemia type; Acute deep vein thrombosis (DVT) of calf muscle vein of right lower extremity ([facility]); Benign essential hypertension Start: 08-12-2023 Refill Suki Maria C [facility] Start: 07-27-2023 Telephone encounter Joaquin kebede DO Work Phone: [facility] Start: 07-07-2023 Orders Only Joaquin chung DO Work Phone: [facility] Start: 07-06-2023 End: 07-07-2023 ambulatory [facility] Start: 07-06-2023 ambulatory [facility] Start: 07-06-2023 End: 07-06-2023 Office outpatient visit 25 minutes Joaquin Devine DO [facility] Comment on above: 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, without long-term current use of insulin ([facility]) (Primary Dx); Benign essential hypertension; Hyperlipidemia, unspecified hyperlipidemia type; Acute deep vein thrombosis (DVT) of calf muscle vein of right lower extremity ([facility]) Start: 06-14-2023 End: 06-14-2023 ambulatory Gino Carrasquillo Other [employer] Other Start: 06-14-2023 Telephone encounter Gino Carrasquillo [facility] Start: 06-10-2023 End: 06-10-2023 ambulatory Gino Carrasquillo Other [employer] Other Start: 06-10-2023 Telephone encounter Gino Carrasquillo [facility] Start: 06-09-2023 End: 06-09-2023 ambulatory Gino Carrasquillo Other [employer] Other Start: 06-09-2023 Office outpatient vi sit 25 minutes Gino Carrasquillo [facility] Start: 06-07-2023 End: 06-07-2023 ambulatory Gino Carrasquillo Other [employer] Other Start: 06-07-2023 Telephone encounter Bridget Cummins [facility] Start: 06-01-2023 End: 06-01-2023 ambulatory Gino Carrasquillo Other [employer] Other Start: 06-01-2023 Telephone encounter Gino Carrasquillo [facility] Start: 05-31-2023 End: 06-01-2023 ambulatory Kenji De Guzman MD Facility:[facility] Start: 05-19-2023 End: 05-19-2023 ambulatory Gino Carrasquillo Other [employer] Other Start: 05-19-2023 Telephone encounter Gino Carrasquillo [facility] Start: 04-13-2023 End: 04-13-2023 ambulatory Gino Carrasquillo Other [employer] Other Start: 04-13-2023 Office outpatient vi sit 15 minutes Gino Carrasquillo [facility] Start: 03-11-2023 End: 03-11-2023 ambulatory Gino Carrasquillo Other [employer] Other Start: 03-11-2023 Telephone encounter Gino Carrasquillo [facility] Start: 03-10-2023 End: 03-10-2023 ambulatory Gino Carrasquillo Other [employer] Other Start: 03-10-2023 Telephone encounter Gino Carrasquillo [facility] Start: 03-01-2023 End: 03-01-2023 ambulatory Gino Carrasquillo Other [employer] Other Start: 03-01-2023 Telephone encounter Gino Carrasquillo [facility] Start: 02-22-2023 End: 02-22-2023 ambulatory Gino Carrasquillo Other [employer] Other Start: 02-22-2023 Telephone encounter Gino Carrasquillo [facility] Start: 02-16-2023 End: 02-16-2023 ambulatory Gino Carrasquillo Other [employer] Other Start: 02-16-2023 Office outpatient vi sit 15 minutes Gino Neida [facility] Start: 02-04-2023 End: 02-04-2023 ambulatory Gino Carrasquillo Other [employer] Other Start: 02-04-2023 Office outpatient vi sit 15 minutes Gino Carrasquillo [facility] Start: 02-02-2023 End: 02-02-2023 ambulatory Gino Carrasquillo Other [employer] Other Start: 02-02-2023 Telephone encounter Gino Neida [facility] Start: 01-28-2023 End: 01-28-2023 ambulatory Gino Carrasquillo Other [employer] Other Start: 01-28-2023 Office outpatient vi sit 15 minutes Gino Neida [facility] Start: 12-18-2022 End: 12-18-2022 ambulatory Gino Carrasquillo Other [employer] Other Start: 12-18-2022 Telephone encounter Gino Carrasquillo [facility] Start: 12-09-2022 End: 12-10-2022 ambulatory PA-C SADAF WESTON Facility:[facility] Start: 12-09-2022 End: 12-10-2022 ambulatory PA-C SADAF WESTON Facility:[facility] Start: 12-09-2022 End: 12-09-2022 Lab Drop off SADAF WESTON [facility] Start: 10-05-2022 End: 10-06-[address] GINO CARRASQUILLO Facility:[facility] Start: 09-23-2022 End: 09-23-2022 ambulatory Gnio Carrasquillo Other [employer] Other Start: 09-23-2022 Telephone encounter Gino Carrasquillo [facility] Start: 09-22-2022 End: 09-23-[address] GINO CARRASQUILLO Facility:[facility] Start: 09-08-2022 End: 09-08-2022 ambulatory Gino Carrasquillo Other [employer] Other Start: 09-08-2022 Office outpatient vi sit 15 minutes Gino Carrasquillo [facility] Start: 08-27-2022 End: 08-27-2022 ambulatory Gino Carrasquillo Other [employer] Other Start: 08-27-2022 Office outpatient vi sit 15 minutes Gino Carrasquillo [facility] Start: 08-13-2022 End: 08-13-2022 ambulatory Gino Carrasquillo Other [employer] Other Start: 08-13-2022 Telephone encounter Gino Carrasquillo [facility] Start: 08-12-2022 End: 08-13-[address] GINO CARRASQUILLO Facility:[facility] Start: 08-11-2022 End: 08-12-[address] GINO CARRASQUILLO Facility:[facility] Start: 08-10-2022 End: 08-10-2022 ambulatory Gino Carrasquillo Other [employer] Other Start: 08-10-2022 Office outpatient ne w 45 minutes Gino Carrasquillo [facility] Start: 07-16-2022 End: 07-16-2022 ambulatory ESA DI[facility] . Facility:[facility] Start: 03-09-2022 End: 03-09-[address] JOAQUIN DEVINE Facility:[facility] Start: 01-27-2022 End: 01-27-[address] OJAQUIN DEVINE Facility:[facility] Start: 11-26-2021 End: 11-26-2021 Lab Drop off Norma Pulido [facility] Start: 11-26-2021 End: 11-26-2021 Patient encounter procedure Norma Pulido [facility] Start: 11-22-2021 End: 11-23-[address] JOAQUIN [...] 02-12-2023 Diabetic retinal eye exam Bridget Cummins [employer] Start: 07-23-2022 Adult depression scr eening assessment Bridget Cummins [employer] Start: 06-16-2021 Cystoscopy SADAF PRAJAPATI Colonoscopy Norma Lue Cystoscopy Norma Lue Hysterectomy Norma Lue Plan of Treatment Date Care Activity Detail Author Start: 08-22-2024 Adult BMI Screening Adult BMI Screen ing [facility] Start: 08-22-2024 Depression Screening Depression Scre ening [facility] Start: 08-22-2024 Fall Risk Screening Fall Risk Screen ing [facility] Start: 08-22-2024 Tobacco Screening Tobacco Screening [facility] Start: 07-06-2024 Adult BMI Screening Adult BMI Screen ing [facility] Start: 07-06-2024 Depression Screening Depression Scre ening [facility] Start: 07-06-2024 Fall Risk Screening Fall Risk Screen ing [facility] Start: 07-06-2024 Tobacco Screening Tobacco Screening [facility] Start: 02-13-2024 Glaucoma screening Diabetic Op hthalmology Exam [facility] Start: 02-09-2024 Adult BMI Screening Adult BMI Screen ing [facility] Start: 02-09-2024 Tobacco Screening Tobacco Screening [facility] Start: 01-23-2024 Influenza vaccination Influenza Vacc ine [facility] Start: 12-15-2023 ambulatory Ambulatory Facility:[facility] Start: 10-25-2023 End: 10-25-2023 Patient encounter procedure 10/25/2023 11:00 AM EDT [facility] [address] [place] [address] Joaquin Devine, [address], [place] [address] [facility] Start: 08-23-2023 End: 08-23-2023 Patient encounter procedure 08/23/2023 3:30 PM EDT Office Visit [facility] [address] [place] [address] Joaquin Devine, [address], [place] [address] [facility] Start: 07-24-2023 Depression Screening Depression Scre ening [facility] Start: 07-24-2023 Fall Risk Screening Fall Risk Screen ing [facility] Start: 01-22-2023 COVID-19 Vaccine ( season) COVID-19 Vaccine ( season) [facility] Start: 01-22-2023 Influenza vaccination Influenza Vacc ine [facility] Start: 10-14-2021 DTaP,Tdap and Td Vaccines (2 - Td or Tdap) DTaP,Tdap and Td Vaccines (2 - Td or Tdap) [facility] Start: 2001 Administration of varicella zoster vaccine Zoster (Shingles) Vaccine (1 of 2) [facility] Start: 1969 Diabetic foot examination Diabetic Foot Exam [facility] Start: 1950 Medicare Annual Well ness Visit Medicare Annual Wellness Visit [facility] Start: 1950 Urine screening for protein Urine Microalbumin [facility] End: 07-06-2024 Hemoglobin A1c/Hemoglobin.total in Blood Hemoglobin A1c Lab Routine Type 2 diabetes mellitus with diabetic nephropathy, without long-term current use of insulin ([facility]) 1 Occurrences starting 07/06/2023 until 07/06/2024 [employer] Work Phone: Comment on above: 1 Occurrences starti ng 07/06/2023 until 07/06/2024 Hemoglobin A1c/Hemoglobin.total in Blood Hemoglobin A1c Lab Routine Type 2 diabetes mellitus with diabetic nephropathy, without long-term current use of insulin ([facility]) 07/06/2023 9:50 PM EST [facility] Immunizations Immunization Date Immunization Notes Care Provider Mike skinner 03-15-2022 Influenza Vaccine, Quadrivalent, Adjuvanted Bridget Cummins [facility] 03-15-2022 influenza virus vaccine, unspecified formulation Brigdet Cummins [facility] 05-06-2021 Influenza, High-dose , Quadrivalent aHrshqubrooklynn Cummins [facility] 02-22-2020 influenza, high dose seasonal, preservative-free Bridget Cummins [facility] 02-06-2020 influenza, high dose seasonal, preservative-free Bridget Cummins [facility] 08-02-2019 pneumococcal polysaccharide vaccine, [facility] 07-31-2019 influenza, high dose seasonal, preservative-free [place] [facility] 05-21-2018 influenza, high dose seasonal, preservative-free [facility] 11-11-2017 pneumococcal polysaccharide vaccine, 23 valent [facility] 07-20-2014 pneumococcal conjuga te vaccine, 13 valent [facility] 02-24-2013 influenza virus vaccine, unspecified formulation [facility] 10-15-2011 tetanus toxoid, redu awnda diphtheria toxoid, and acellular pertussis vaccine, adsorbed [facility] NEGATED: Highlighted row has not occurred!11-26-2021 SARS-CoV-2 mRNA (tozinameran 5y-11y) vaccine Norma Ashok [facility] Payers Date Payer Category Payer Private Health Insurance 2022 Medicare AETNA MEDICARE A ETNA MEDICARE PLAN (PPO) [id number] 2022-Present [phone] [address] [place] [address] [id number] 1958 Medicare [id number] 1958 Medicare [id number] 1958 Medicare [id number] 1950 Unknown [id number] 2.16.840.1.692977.3.579.2.5 93 1950 Unknown [id number] 2.16.840.1.298377.3.579.2.5 93 1950 Unknown [id number] 2.16.840.1.703516.3.579.2.5 93 1951 Unknown [id number] 2.16.840.1.359112.3.579.2.5 93 1951 Unknown [id number] 2.16.840.1.501947.3.579.2.5 93 1951 Unknown [id number] 2.16.840.1.382142.3.579.2.5 93 1951 Unknown [id number] 2.16.840.1.432249.3.579.2.5 93 1950 Unknown [id number] 2.16.840.1.456011.3.579.2.5 93 1951 Unknown [id number] 2.16.840.1.672350.3.579.2.5 93 1950 Unknown [id number] 2.16.840.1.913548.3.579.2.7 27 1950 Unknown [id number] 2.16.840.1.691151.3.579.2.7 27 1950 Unknown [id number] 2.16.840.1.237655.3.579.2.7 27 1950 Unknown [id number] 2.16.840.1.288435.3.579.2.1 96 1950 Unknown [id number] 2.16.840.1.979408.3.579.2.1 286 1950 Unknown [id number] 2.16.840.1.668936.3.579.2.1 286 1950 Unknown [id number] 2.16.840.1.552598.3.579.2.1 286 1950 Unknown [id number] 2.16.840.1.285179.3.579.2.1 286 1950 Unknown [id number] 2.16.840.1.781058.3.579.2.1 286 Social History Date Type Detail Facility Start: 06-04-2021 End: 04-13-2022 Tobacco smoking status Never smoked tobacco (finding) [facility] Start: 06-05-2020 End: 02-08-2023 Sex Assigned At Female [facility] Tobacco smoking status Never [facility] Start: 04-13-2022 Tobacco use and exposure Smokeless tobacco [facility]-user [facility] Start: 02-08-2023 End: 08-23-2023 Alcohol intake Ex-drinker (finding) [employer] Start: 06-05-2020 End: 02-08-2023 History of Social function [facility] Start: 1950 Sex Assigned At Not on file [facility] [email or web address] Functional Status Date Assessment Result Facility 11-26-2021 Functional Status N/A [facility] Clinical Notes 11-26-2021 to 08-23-2023 Joaquin Devine, DO - 08/23/2023 3:30 PM EDTTelephone Encounter - Genoveva Castle - 07/27/2023 2:40 PM ESTTelephone Encounter - Joaquin Porter Nilson, DO - 07/27/2023 2:40 PM EST Note [...] complication, without long-term current use of insulin ([facility]) Ok to take PM dose of metformin based on FBS. Check A1 c next visit Hyperlipidemia, unspecified hyperlipidemia type Continue atorvastatin but if myalgias return then call and will decrease freqency to every other day. Acute deep vein thrombosis (DVT) of calf muscle vein of right lower extremity ([facility]) May stop Eliquis. She has only had 1 provoked DVT and was on Eliquis for 6+ months. Recommended to F/U with vascular. Benign essential hypertension BP at goal. Continue current regimen documented in this encounter [employer] 07-27-2023 Miscellaneous Notes Formattin g of this [...] in the meantime. documented in this encounter [employer] 07-27-2023 Telephone encount er Note Patient called [...] a in office f/u scheduled for 10/05/23. [employer] 07-27-2023 Telephone encount er Note She should probably move that appointment up. Would need to know a lot more information about her chest pain [employer] 07-27-2023 Telephone encount er Note Moved visit up to 08/22 and instructed patient to go to the ER if symptoms worsen in the meantime. [facility] 07-06-2023 History of Presen t illness Narrative [...] nephropathy, without long-term current use of insulin ([facility]) - Hemoglobin A1c; Future Check A1c. She [...] Take with meals. [facility] Evaluation note Encounter Date Diagnosis Assessment Notes May, Type 2 diabetes mellitus with hyperglycemia, without long-term current use of insulin (ICD-10 - E11.65) A1C increased - dose of metformin increased. Watch sweets, stay hydrated. May, Essential (primary) hypertension (ICD-10 - I10) BP stable today. DASH diet and good hydration May, Chronic fatigue (ICD-10 - R53.82) assess for iron deficiency and hypothyroidism [facility] Other 01-15-2024 Evaluation note* Encounter Date Diagnosis Assessment Notes Treatment Notes Treatment Clinical Notes May, Type 2 diabetes mellitus with hyperglycemia, without long-term current use of insulin (ICD-10 - E11.65) [facility] Other 01-15-2024 Miscellaneous Notes* Telephone Encounter - Bridget Cummins CMA - 06/07/2023 11:34 AM EST Called patient to reschedule [facility]* Telephone Encounter - Bridget Cummins CMA - 06/07/2023 11:34 AM EST Called patient to reschedule appointment [facility]01-09[facility]2024 Evaluation note* Encounter Date Diagnosis Assessment Notes Treatment Notes Treatment Clinical Notes May, Essential (primary) hypertension (ICD-10 - I10) [facility] Other 11-21-2023 Evaluation note* Encounter Date Diagnosis Assessment Notes Treatment Notes Treatment Clinical Notes Mar, Lumbar back pain with radiculopathy affecting right lower extremity (ICD-10 - M54.16) Discussed holding atorvastatin to help with muscle pain. Pt agrees to referral to Pain Mgmt. Has had benign xrays of back and hip, per her report. [facility] Other 10-18-2023 Evaluation note* Encounter Date Diagnosis Assessment Notes Treatment Notes Treatment Clinical Notes Feb, Recurrent occipital headache (ICD-10 - R51.9) [facility] Other 10-09-2023 Evaluation note* Encounter Date Diagnosis Assessment Notes Treatment Notes Treatment Clinical Notes Feb, Essential (primary) hypertension (ICD-10 - I10) [facility] Other 09-26-2023 Evaluation note* Encounter Date Diagnosis [...] worsened since starting eliquis. Orders faxed to [facility]. [facility] Other 09-14-2023 Evaluation note* Encounter Date Diagnosis Assessment Notes Treatment Notes Treatment Clinical Notes Jan, Acute deep vein thrombosis (DVT) of calf muscle vein of right lower extremity (ICD-10 - I82.461) Wrote out instructions and gave samples of eliquis. Has appt later this week w vascular in [place]. Pt expresses understanding of the seriousness of this problem and will follow up w vascular and attribute to their treatment plan for DVT. [facility] Other 09-07-2023 Evaluation note* Encounter Date Diagnosis Assessment Notes Treatment Notes Treatment Clinical Notes Jan, Cervical pain (neck) (ICD-10 - M54.2) Printed order for PT. continue NSAIDs and heat therapy. Suspect her headaches are due to cervical problems. Jan, Varicose veins of both lower extremities with pain (ICD-10 - I83.813) Pt agrees to referral to vascular surgery for her prominent painful varicose veins. [facility] Other 07-28-2023 Evaluation note* Encounter Date Diagnosis Assessment Notes Treatment Notes Treatment Clinical Notes Nov, Type 2 diabetes mellitus with hyperglycemia, without long-term current use of insulin (ICD-10 - E11.65) [facility] Other 05-03-2023 Evaluation note* Encounter Date Diagnosis Assessment Notes Treatment Notes Treatment Clinical Notes September, Abnormal mammogram of right breast (ICD-10 - R92.8) [facility] Other 04-18-2023 Evaluation note* Encounter Date Diagnosis Assessment Notes Treatment Notes Treatment Clinical Notes Aug, Vaginal yeast infection (ICD-10 - B37.31) Complete med and call if symptoms continue Aug, Screening mammogram for breast cancer (ICD-10 - Z12.31) [facility] Other 04-06-2023 Evaluation note* Encounter Date Diagnosis [...] - I10) Chronic problem - requests refill. [facility] Other 03-22-2023 NotePROCEDURE: XR HIP RT 2 3V W PELVIS HISTORY: Pain in right leg ; low back pain COMPARISON: None. FINDINGS: BONES:No fracture, acute abnormality, or significant arthropathy. SOFT TISSUES:No visible soft tissue swelling. EFFUSION:None visible. OTHER: Negative. IMPRESSION: 1. No acute bone abnormality or significant degenerative changes of the hip joints. Electronically authenticated by: KYLIE MENON Date: 2022-08-12 09:35[facility]03-20-2023 Evaluation note* Encounter Date Diagnosis Assessment Notes [...] levels and will check later this week [facility] Other 07-06-2022 Hospital Discharge instructions Patient Education [...] Follow these instructions at home: Medicines Take xknr-wjl-zxskodq and prescription medicines only as told by [...] or the blood stops without treatment. Take bgtl-qbh-xpwhvjw and prescription medicines only as told by your health care provider. Drink enough fluid to keep your urine clear or pale yellow. This information is not intended to replace advice given to you by your health care provider. Make sure you discuss any questions you have with your health care provider. Document Released: 05/10/2006 Document Revised: 10/04/2019 Document Reviewed: 06/12/2017 Link To Media Patient Education 2020 [employer]. Follow Up Care 11/18/2021 15:11:49 With:Norma Pulido MD, UR, URO Address: When:1 year Comments:Renal US [facility] evaluation + Plan note Future Appointments Appointment Date:12/02/2022 08:00:00 AM Scheduled Provider:Norma Pulido MD Location:[facility] Appointment Type:URO Office Visit [facility] evaluation + Plan note Future Appointments Appointment Date:12/15/2023 09:00:00 AM Scheduled Provider:Norma Pulido MD Location:[facility] Appointment Type:URO Office Visit Diagnostic Tests Pending * Urine Culture 12/09/[address] [facility] [employer] Other Evaluation note* Diagnosis Type 2 diabetes mellitus with diabetic nephropathy, without long-term current use of insulin ([facility] Primary Benign essential hypertension Essential hypertension, benign Hyperlipidemia, unspecified hyperlipidemia type Acute deep vein thrombosis (DVT) of calf muscle vein of right lower extremity ([facility]) [facility] Diagnosis Type 2 diabetes mellitus without complication, without long-term current use of insulin ([facility])- Primary Hyperlipidemia, unspecified hyperlipidemia type Acute deep vein thrombosis (DVT) of calf muscle vein of right lower extremity ([facility]) Benign essential hypertension Essential hypertension, benign documented [facility] N[facility] - Reported* Type Description Date Medical History Hyperlipidemia Medical History Diabetes Medical History Hypertension Surgical History Hysterectomy 1987 [facility] Other History general Narrative - Reported* Type Description Date Medical History Hyperlipidemia Medical History Diabetes Medical History Hypertension Surgical History Hysterectomy 1987 Hospitalization History SEE SURGICAL HX [facility] Other Hospital course Narrative No data available for this section [facility] Hospital Discharge instructions No data available for this section [facility]ructions[facility] on filedocumented in this encounter [facility] on filedocumented in this encounter [facility]Not on filedocumented in this encounter [facility] on filedocumented in this encounter [facility]Not on filedocumented in this encounter [facility]ructionsNot on filedocumented in this encounter [facility] No data available for this section [facility] Summary Purpose Family History No Family History [...] affecting right lower extremity (M54.16) Referral Organization [facility] gifty Referring Provider First Name Gino Referring Provider Last Name Neida Referring Provider Specialty Family [facility] cine Referred Organization [facility] Referred Address [address] [place], [place],[address] Referred Provider Specialty Pain Medicin e Referral Priority Routine Reason [facility] [place] office? Last 2 OV, had xray and MRI. Occipital headaches Diagnosis 1 Recurrent occipital headache (R51.9) Referral Organization [facility] [employer] gifty Referring Provider First Name Gino Referring Provider Last Name Neida Referring Provider Specialty [facility] cine Referred Organization [facility] Referred Address [address],[place],[address] Referred Provider Specialty Neurology Referral Priority Routine Reason [facility] [place] - varicose veins that are tender R>L Diagnosis 1 Varicose veins of yong th lower extremities with pain (I83.813) Referral Organization [facility] [employer] gifty Referring Provider First Name Gino Referring Provider Last Name Neida Referring Provider Specialty [facility] Billeo Referred Organization [facility] Referred Provider Betty Matos Referred Address [address], [place],[address] Referred Provider Specialty Vascular Tena rj Referral Priority Routine General Notes Giselle Levy 11:48:16 AM >received today, attachments made, waiting for notes to be locked Giselle Levy 02/02/2023 09:22:14 AM >SENT TE TO LOCK NOTES Clinical Notes P: [phone] F: [id number] Additional Source Comments Care Team (unrecognized sect ion and content) [employer] Observer Helper Relationship Specialty Start Date End Date Gino Carrasquillo MD [address] [place] [id number] PCP - General Family Medicine 02/04/23 [employer] Observer Helper Relationship Specialty Start Date End Date Joaquin Devine DO [address] [place] [address] PCP - General Family Medicine 07/06/23 [employer] Observer Helper Relationship Specialty Start Date End Date Joaquin Devine DO [address] [place] [address] PCP - General Family Medicine 07/06/23 [employer] Observer Helper Relationship Specialty Start Date End Date Joaquin Devine DO [address] [place] [address] PCP - General Family Medicine 07/06/23 [employer] Prospect[employer] Observer Helper Relationship Specialty Start Date End Date Joaquin Devine DO [address], [place] [address] PCP - General Family Medicine 07/06/23 [employer] Observer Helper Relationship Specialty Start Date End Date Joaquin Devine DO [address], [place] [address] PCP - General Family Medicine 07/06/23 INFORMATION SOURCE (unrecogn ized section and content) DATE CREATED AUTHOR 11/27/2021 [facility] DATE CREATED AUTHOR AUTHOR'S ORGANIZ ATION 10/06/2022 [facility] DATE CREATED AUTHOR AUTHOR'S ORGANIZ ATION 01/03/2023 [facility] DATE CREATED AUTHOR AUTHOR'S ORGANIZ ATION 06/02/2023 [facility] DATE CREATED AUTHOR AUTHOR'S ORGANIZ ATION 07/08/2023 [facility] DATE CREATED AUTHOR AUTHOR'S ORGANIZ ATION 10/10/2023 [facility] Ambulatory [facility] REASON FOR VISIT (unrecogniz [...] BE BASED ON THE PRIMARY CLINICAL RECORDS. [facility] [facility]. provides no warranty or guarantee of the accuracy or completeness of information in this document.
[2023-10-25 13:10] LABS: D Dimer 0.62 mg/L FEU (<=0.59)
[2023-10-25 13:59] LABS: Estimated Average Glucose 166 mg/dL; Glycohemoglobin A1C 7.4 % (4.5-6.2)
[2023-10-25 14:53] LABS: Alanine Aminotransferase 20 U/L (14-59); Albumin Globulin Ratio 1.2; Albumin Level 3.9 g/dL (3.4-5.0); Alkaline Phosphatase 54 U/L (46-116); Anion Gap 13.5; Aspartate Amino Transferase 18 U/L (15-37); BUN Creatinine Ratio 13.4; Bilirubin Total 0.7 mg/dL (0.2-1.0); Chloride 106 mmol/L (98-107); Chol HDL Ratio 2.9; Cholesterol 174 mg/dL (<=200); Estimated GFR (African America >60 (>=60); Estimated GFR (Non-African Ame >60 (>=60); Globulin 3.3 g/dL; Glucose 134 mg/dL (74-106); HDL Cholesterol 60 mg/dL (40-60); Potassium 3.5 mmol/L (3.5-5.1); Sodium 143 mmol/L (136-145); Total Protein 7.2 g/dL (6.4-8.2); Triglycerides 168 mg/dL (<=150); VLDL CHOLESTEROL 33.6 mg/dL
== END 2023-10-25 12:07 | disposition home or self-care (01) ==
LOC: LAB 12:09
PROVIDERS: PCP Family Medicine; Visit Provider Family Medicine
DX: I82.461 Acute embolism and thrombosis of right calf muscular vein (principal); I10 Essential (primary) hypertension; E11.9 Type 2 diabetes mellitus without complications; E78.5 Hyperlipidemia, unspecified
CPT/HCPCS: 36415; 80053; 80061; 83036; 85378

== ENCOUNTER 2023-12-17 09:33 | Outpatient (OUT) | payer MEDICARE, SELFPAY ==
--- NOTE | 2023-12-17 09:39 | US_ITS ---
[address] [address] Patient Name: PEARL HAWKINS MRN: [facility]:[id number] date: 1950 Sex: F Assigned Patient Location: US Current Patient Location: US Accession/Order Number: [id number] Exam Date: 12/17/2023 10:03 Report Date: 12/20/2023 10:58 At the request of: YOLANDA ROSADO Procedure: US renal BI EXAMINATION: US renal BI HISTORY: Renal Cyst COMPARISON: Ultrasound renal bilateral 12/02/2022 TECHNIQUE: Ultrasound examination was performed of the kidneys and urinary bladder. FINDINGS: RIGHT KIDNEY: Nonobstructing 5 mm stone within inferior pole. Benign-appearing 7 mm cyst within mid body. No appreciable mass. Normal renal cortical parenchymal echogenicity. Color Doppler demonstrates blood flow within the kidney. Kidney: 9.3 x 5.0 x 5.9 cm LEFT KIDNEY: No evidence of pelvocaliectasis, mass, or calculi. Normal renal cortical parenchymal echogenicity. Color Doppler demonstrates blood flow within the kidney. Kidney: 10.4 x 4.3 x 5.5 cm BLADDER: No visible wall thickening, mass, or calculi. US/US renal BI IMPRESSION: 1. Nonobstructing right nephrolithiasis. 2. Stable small benign-appearing right renal cyst. 3. Unremarkable left kidney. Electronically authenticated by: KYLIE MARCANO Date: 12/20/2023 10:58
--- NOTE | 2023-12-17 09:40 | XR_ITS ---
The [address] [address] Patient Name: PEARL HAWKINS MRN: [id number] date: 1950 Sex: F Assigned Patient Location: Current Patient Location: Accession/Order Number: [id number] Exam Date: 12/17/2023 09:45 Report Date: 12/20/2023 09:44 At the request of: YOLANDA ROSADO Procedure: XR abdomen 1V EXAMINATION: XR abdomen 1V HISTORY: Renal Cyst , kidney stones COMPARISON: XR hip right with pelvis 08/12/2022 FINDINGS: KIDNEY/URETER - RIGHT: No visible renal or ureteral calcifications. KIDNEY/URETER - LEFT: No visible renal or ureteral calcifications. PELVIS: No visible ureteral stones. Stable pelvic calcifications compatible with phleboliths. BOWEL: No abnormal dilation or deviation. BONES: No acute abnormality. OTHER: Negative. No abnormal gaseous collections. XR/XR abdomen 1V IMPRESSION: 1. No appreciable urinary tract calculi. Electronically authenticated by: KYLIE MARCANO Date: 12/20/2023 09:44
== END 2023-12-17 09:34 | disposition home or self-care (01) ==
LOC: US 09:34
PROVIDERS: PCP Family Medicine; Visit Provider Urology
DX: N28.1 Cyst of kidney, acquired (principal); N20.0 Calculus of kidney
CPT/HCPCS: 74018; 76775

== ENCOUNTER 2024-03-23 10:23 | Outpatient (OUT) | payer MEDICARE, SELFPAY | END 2024-03-23 10:24 | disposition home or self-care (01) | LOC: US 10:26 → RAD 10:34 | PROVIDERS: PCP Family Medicine; Visit Provider Urology | DX: N28.1 Cyst of kidney, acquired (principal) ==

== ENCOUNTER 2024-03-28 08:53 | Outpatient (OUT) | payer MEDICARE, SELFPAY ==
--- NOTE | 2024-03-28 08:59 | XR_ITS ---
[address] [address] Patient Name: PEARL HAWKINS MRN: [id number] date: 1950 Sex: F Assigned Patient Location: US Current Patient Location: US Accession/Order Number: [id number] Exam Date: 03/28/2024 09:45 Report Date: 03/28/2024 15:53 At the request of: YOLANDA ROSADO Procedure: XR abdomen 1V EXAMINATION: XR abdomen 1V HISTORY: kidney stones COMPARISON: 12/17/2023 FINDINGS: KIDNEY/URETER - RIGHT: No visible renal or ureteral calcifications. KIDNEY/URETER - LEFT: No visible renal or ureteral calcifications. PELVIS: No visible ureteral calcifications. Any visible calcifications favor phleboliths. BOWEL: No abnormal dilation or deviation. BONES: No acute abnormality. Degenerative changes of the spine OTHER: Negative. No abnormal gaseous collections. XR/XR abdomen 1V IMPRESSION: No definite urinary tract calculi Electronically authenticated by: BRYCE ARCHER Date: 03/28/2024 15:53
--- NOTE | 2024-03-28 08:59 | US_ITS ---
[address] [address] Patient Name: PEARL HAWKINS MRN: [id number] date: 1950 Sex: F Assigned Patient Location: Current Patient Location: Accession/Order Number: [id number] Exam Date: 03/28/2024 09:00 Report Date: 03/28/2024 09:55 At the request of: YOLANDA ROSADO Procedure: US renal BI EXAMINATION: US renal BI HISTORY: kidney stones COMPARISON: 12/17/2023 TECHNIQUE: Ultrasound examination was performed of the bladder. FINDINGS: Right Kidney: Normal in size, contour and echotexture. The cortex measures 1.2 cm. 8 mm area of anechoic echogenicity, simple cyst. 6 mm echogenic focus, lower pole nephrolith. No solid cortical mass, hydronephrosis or obstructing nephrolithiasis Height: 4.71 cm Length: 9.84 cm Width: 4.74 cm Left Kidney: Normal in size, contour and echotexture. The cortex measures 1.1 cm. 0.9 cm area of anechoic echogenicity, cortical cyst with peripheral calcification, Bosniak 2. Height: 6.01 cm Length: 10.20 cm Width: 5.28 cm The urinary bladder is grossly normal in volume of 48 mL US/US renal BI IMPRESSION: Bilateral renal cortical cysts 6 mm nonobstructing right nephrolith Electronically authenticated by: BRYCE ARCHER Date: 03/28/2024 09:55
== END 2024-03-28 08:54 | disposition home or self-care (01) ==
LOC: US 08:53
PROVIDERS: PCP Family Medicine; Visit Provider Urology
DX: N20.0 Calculus of kidney (principal); N28.1 Cyst of kidney, acquired
CPT/HCPCS: 74018; 76775

== ENCOUNTER 2024-04-07 17:50 | Emergency (ER) | payer MEDICARE, SELFPAY ==
[2024-04-07] VITALS (30 sets, daily range): BP systolic 121–163; BP diastolic 71–86; PULSE 62–89; TEMP 36.9; O2SAT 95–99; BMI 23.6
--- OUTSIDE RECORDS SUMMARY | 2024-04-07 18:00 | XMS_ITS | CCD ---
Author Organization [facility] CliniSyoh Care Team Providers Care 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 Name Role Phone JOAQUIN DEVINE Primary Care Physician Gino Carrasquillo NEIDA, DR GINO Lara Attending Unavailable CARRASQUILLO, DR GINO Lara Admitting Unavailable ZIEBER, DR KYLIE Soto Consulting Unavailable CARRASQUILLO, DR GINO Lara Primary Care Unavailable CARRASQUILLO, DR GINO Lara Consulting Unavailable CARRASQUILLO, DR GION Lara Primary Care Unavailable CARRASQUILLO, DR GINO Lara Attending Unavailable WEST, DR BRYCE Garcia Consulting Unavailable CARRASQUILLO, DR GINO Lara Admitting Unavailable CARRASQUILLO, DR GINO Lara Consulting Unavailable CARRASQUILLO, DR GINO Lara Primary Care Unavailable CARRASQUILLO, DR GINO Lara Attending Unavailable ZIEBER, DR KYLIE Soto Consulting Unavailable CARRASQUILLO, DR GINO Lara Admitting Unavailable CARRASQUILLO, DR GINO Lara Consulting Unavailable DIAB ., ESA Consulting Unavailable DIAB ., ESA Attending Unavailable FURROCIO, DR JOAQUIN Porter Primary Care Unavailable DIAB ., ESA Admitting Unavailable FURMINDYNG, DR JOAQUIN Porter Primary Care Unavailable HAY ., DR CHATTERJEE Consulting Unavailable HAY ., DR CHATTERJEE Attending Unavailable HAY ., DR CHATTERJEE Admitting Unavailable FALVOJOSE M Consulting Unavailable SRIDHAR, DR JOAQUIN Porter Primary Care Unavailable MARKER ., DR MCCONNELL Consulting Unavailable MARKER ., DR MCCONNELL Attending Unavailable MARKER ., DR MCCONNELL Admitting Unavailable SAIDRAYNE Consulting Unavailable CARRASQUILLO, DR GINO Lara Primary Care Unavailable LARRY ., DR PASTOR Consulting Unavailable LARRY ., DR PASTOR Attending Unavailable LARRY ., DR PASTOR Admitting Unavailable ZIEBER, DR KYLIE Soto Consulting Unavailable SRIDHAR, DR JOAQUIN Porter Primary Care Unavailable LARRY ., DR PASTOR Consulting Unavailable LARRY ., DR PASTOR Attending Unavailable LARRY ., DR PASTOR Admitting Unavailable FURMINDYNG, DR JOAQUIN Porter Primary Care Unavailable NORMA STOVALL Attending Unavailable LOBITO YEE Consulting Unavailable NORMA STOVALL Admitting Unavailable NORMA STOVALL Consulting Unavailable GINO CARRASQUILLO Primary Care Physician Gab LAWTON, Kenji Mckeon Attending Unavailable Gino Carrasquillo MD Primary Care Provider Furlong DO, Joaquin G Primary Care Provider FURLONG, JOAQUIN G Referring Unavailable FURLONG, JOAQUIN G Primary Care Unavailable FURLONG, JOAQUIN G Attending Unavailable FURLONG, JOAQUIN G Referring Unavailable FURLONG, JOAQUIN G Primary Care Unavailable FURLONG, JOAQUIN G Attending Unavailable FURLONG, JOAQUIN G Referring Unavailable FURLONG, JOAQUIN G Primary Care Unavailable SOCRATES BEYER Attending Unavailable [...] Unavailable FURLONG, JOAQUIN G Primary Care Unavailable LAURA BULLOCK Attending Unavailable FURLONG, JOAQUIN G Referring Unavailable FURLONG, JOAQUIN G Primary Care Unavailable Norma Pulido. Attending Unavailable Norma Pulido. Attending Unavailable Norma Pulido Attending Unavailable Norma Pulido Admitting Unavailable Allergies Allergy Classification Reported Allergen(s) Allergy Type Date of Onset Reaction(s) Facility Angiotensin Converting Enzyme (KRISTAN) Inhibitors (1 source) Lisinopril; Translations: [lisinopril] Drug Allergy Cough (finding) [facility] Cephalosporins (antibiotic) (1 source) cefdinir; Translations: [cefdinir] Drug Allergy Eruption (morphologic abnormality) [facility] metFORMIN (1 source) metFORMIN; Translations: [metformin] Drug Allergy Other (qualifier value) [facility] Penicillins (antibiotic) (1 source) Amoxicillin; Translations: [amoxicillin] Drug Allergy Eruption of skin (disorder) [facility] Sulfamethoxazole / Trimethoprim (1 source) Sulfamethoxazole / Trimethoprim; Translations: [sulfamethoxazole-tr imethoprim] Drug Allergy Other (qualifier value) [facility] (20 sources) Amoxicillin; Translations: [amoxicillin] Drug Allergy 03-27-20 Eruption of skin (disorder), Hives, Rash [facility] (20 sources) cefdinir; Translations: [cefdinir] Drug Allergy 06-04-19 22 Eruption (morphologic abnormality), Rash, Hives [facility] (20 sources) Lisinopril; Translations: [lisinopril] Drug Allergy 06-04-19 22 Cough (finding), Cough [facility] (6 sources) metFORMIN; Translations: [metformin] Drug Allergy Other (qualifier value) [facility] (20 sources) Sulfamethoxazole / Trimethoprim; Translations: [sulfamethoxazole-tr imethoprim] Drug Allergy 06-04-19 22 Other (qualifier value), Other (See Comments) [facility] (1 source) Amino Acids Drug Allergy 07-16-19 23 [facility] (1 source) Amoxicillin Drug Allergy 06-06-19 21 [facility] (1 source) cefdinir Drug Allergy 07-16-19 23 [facility] (1 source) metFORMIN Drug Allergy 07-16-19 23 [facility] (1 source) Sulfamethoxazole / Trimethoprim Drug Allergy 07-16-19 23 [facility] (1 source) metFORMIN Drug Allergy 06-04-19 Other (See Comments) [facility] (3 sources) Sulfamethoxazole / Trimethoprim; Translations: [SULFAMETHOXAZOLE-TR IMETHOPRIM] Drug Allergy 06-04-19 [facility] Repository Medications Current Medications Medication Drug [...] Refills(s) 0 Start Date: 06/04/21 Status: Ordered aspirin 81 mg delayed release oral tablet (10 sources) Platelet Aggregation Inhibitor, Nonsteroidal Anti-inflammatory Drug Start: 11-09-2023 take 1 tablet by mouth in the morning aspirin 81 mg Indications: Type 2 diabetes mellitus without complication, without long-term current use of insulin ([facility]) Take 1 tablet (81 mg total) by mouth in the morning. 11/09/2023 Active Start: 06-04-2021 End: 07-06-2023 take 1 tablet by mouth in the morning aspirin 81 mg capsule Take 1 tablet by mouth in the morning. 0 06/04/2021 07/06/2023 Discontinued (Therapy completed) Start: 06-04-2021 take 1 mg by mouth e very four hours aspirin 81 mg oral capsule mg cap(s), Oral, q4hr, Refills(s) 0 Start Date: 06/04/21 Status: Ordered atorvastatin 10 mg oral tablet (20 sources) [...] a day for 10 day(s) Apr, Active blood-glucose meter (ONETOUCH VERIO FLEX METER) misc (2 sources) Start: 02-21-2024 blood-glucose meter (ONETOUCH VERIO FLEX METER) misc 1 Unit by miscellaneous route in the morning. 1 each 02/21/2024 Active calcium carbonate 1500 mg / cholecalciferol 0.01 mg oral tablet (14 sources) Vitamin D take 1 tablet by mouth once in the morning calcium carbonate-vitamin D3 (CALTRATE) 600 mg(1,500mg) -400 units per tablet Take 1 tablet by mouth in the morning. Active take 1 tablet by rebekah th [...] Biguanide Start: 06-04-2021 End: 08-12-2023 take 1 mg by mouth twice daily [...] day for 90 days Active Vitamin D3 (6 sources) Start: 06-04-2021 Vitamin D3 Ref ills(s) 0 Start Date: 06/04/21 Status: Ordered Completed/Discontinued Medications Medication Drug Class(es) Dates Sig (Normalized) Sig (Original) [id number] 200 actuat albuterol 0.09 mg/actuat metered dose [...] before bedtime. 0 08/23/2023 Discontinued (Therapy completed) dextromethorphan hydrobromide 2 mg/ml / guaiFENesin 20 mg/ml oral solution (2 sources) Uncompetitive E-zvptkt-L-aspartat e Receptor Antagonist, Sigma-1 Agonist Start: 07-03-2022 End: 07-06-2023 take 5 mL by mouth every four hours as needed dextromethorphan- guaiFENesin (TUSSIN DM) 10-100 mg/5 mL liquid Take [...] Date Documented Da te Episodic/Chronic Anxiety disorders (17 sources) Generalized anxiety disorder; Translations: [Generalized anxiety disorder] Onset: 03-27-2022 03-27-2022 Chronic Calculus of urinary tract (3 sources) Kidney stone; Translations: [Calculus of kidney] Onset: 12-15-2023 Episodic Diabetes mellitus with complications (20 sources) Type 2 diabetes mellitus; Translations: [Type 2 diabetes mellitus with hyperglycemia] Onset: 08-29-2015 Chronic Diabetes mellitus without complication (13 sources) Type 2 diabetes mellitus without complications; Translations: [Type 2 diabetes mellitus without complication] Onset: 03-10-2022 07-06-2023 Chronic Disorders of lipid metabolism (20 sources) Mixed hyperlipidemia; Translations: [Mixed hyperlipidemia] Onset: 03-10-2022 Chronic Diverticulosis and diverticulitis (9 sources) Diverticular disease; Translations: [Diverticulosis of intestine, part unspecified, without perforation or abscess without bleeding] Onset: 03-27-2022 03-27-2022 Chronic Essential hypertension (20 sources) Essential hypertension; Translations: [Essential (primary) hypertension] Onset: 08-26-2020 Chronic Genitourinary symptoms and ill-defined conditions (20 sources) Unspecified urinary incontinence; Translations: [Urinary incontinence] Onset: 11-26-2021 Chronic Genitourinary symptoms and ill-defined conditions (20 sources) Microscopic hematuria; Translations: [Asymptomatic microscopic hematuria] Onset: 11-22-2021 Episodic Headache; including migraine (9 sources) Tension-type headache; Translations: [Tension-type headache, unspecified, not intractable] Onset: 03-27-2022 03-27-2022 Chronic Malaise and fatigue (4 sources) Fatigue; Translations: [Chronic fatigue, unspecified] Chronic Neoplasms of unspecified nature or uncertain behavior (2 sources) Neoplasm of uncertain behavior of skin; Translations: [Neoplasm of uncertain behavior of skin] Onset: 02-21-2024 03-07-2024 Episodic Nonmalignant breast conditions (1 source) Unspecified lump in the right breast, upper inner quadrant; Translations: [UNS LUMP IN RT BREAST UPR INR QUAD] Onset: 09-29-2022 Episodic Nonspecific chest pain (4 sources) Other chest pain; Translations: [OTHER CHEST PAIN] Onset: 07-16-2022 Episodic Osteoarthritis (9 sources) Degenerative joint disease of shoulder region; Translations: [Primary osteoarthritis, unspecified shoulder] Onset: 03-19-2021 03-27-2022 Chronic Osteoporosis (9 sources) Senile osteoporosis; Translations: [Age-related osteoporosis without current pathological fracture] Onset: 03-27-2022 03-27-2022 Chronic Other acquired deformities (9 sources) Contracture of joint of right ankle; Translations: [Contracture, right ankle] Onset: 03-27-2022 03-27-2022 Chronic Other aftercare (2 sources) Long-term current use of aspirin; Translations: [terminal make up operator (current) use of aspirin] Onset: 11-26-2021 Episodic Other aftercare (1 source) terminal make up operator (current) use of oral hypoglycemic drugs; Translations: [SASH FINISHER USE ORAL HYPOGLYCEMIC DX] Onset: 07-20-2022 Episodic Other aftercare (1 source) Other buttermaker helper (current) drug therapy; Translations: [OT SENIOR LIVING CURRENT DRUG THERAPY] Onset: 07-20-2022 Episodic Other bone disease and musculoskeletal deformities (1 source) Other specified disorders of bone density and structure, unspecified site; Translations: [OT D/O BONE DEN STRUCT UNS SITE] Onset: 08-15-2022 Episodic Other connective tissue disease (2 sources) Pain in right leg; Translations: [PAIN IN RIGHT LEG] Onset: 08-15-2022 Episodic Other connective tissue disease (2 sources) Cramp and spasm; Translations: [CRAMP AND SPASM] Onset: 08-15-2022 Episodic Other connective tissue disease (1 source) Pain in lower limb Onset: 12-31-2023 Episodic Other diseases of bladder and urethra (2 sources) Detrusor overactivity; Translations: [Overactive bladder] Onset: 12-15-2023 Chronic Other diseases of bladder and urethra (1 source) Overactive bladder 04-05-2024 Chronic Other diseases of kidney and ureters (3 sources) Acquired renal cyst without neoplastic change; Translations: [Cyst of kidney, acquired] Onset: 11-26-2021 Episodic Other diseases of kidney and ureters (12 sources) Cyst of kidney; Translations: [Cyst of kidney, acquired] Onset: 07-06-2023 11-26-2022 Episodic Other ear and sense organ disorders (9 sources) Chronic non-infective otitis externa; Translations: [Other otitis externa, bilateral] Onset: 03-27-2022 03-27-2022 Chronic Other ear and sense organ disorders (9 sources) Sensorineural hearing loss, bilateral; Translations: [Sensorineural hearing loss, bilateral] Onset: 03-27-2022 03-27-2022 Chronic Other hereditary and degenerative nervous system conditions (9 sources) Finding of scapular structure; Translations: [Other specified extrapyramidal and movement disorders] Onset: 03-27-2022 03-27-2022 Chronic Other inflammatory condition of skin (9 sources) Psoriasis; Translations: [Psoriasis, unspecified] Onset: 03-27-2022 03-27-2022 Chronic Other nervous system disorders (9 sources) Mortons neuroma of right foot; Translations: [Lesion of plantar nerve, right lower limb] Onset: 03-27-2022 03-27-2022 Chronic Other nervous system disorders (1 source) Other chronic pain; Translations: [Other chronic pain] Onset: 12-31-2023 Chronic Other screening for suspected conditions (not mental disorders or infectious disease) (10 sources) Encounter for screening mammogram for malignant neoplasm of breast; Translations: [Other abnormal and inconclusive findings on diagnostic imaging of breast] Onset: 01-27-2022 Episodic Other skin disorders (1 source) Skin lesion; Translations: [Disorder of the skin and subcutaneous tissue, unspecified] 03-08-2024 Episodic Other upper respiratory disease (9 sources) Allergic rhinitis; Translations: [Allergic rhinitis, unspecified] Onset: 03-27-2022 03-27-2022 Chronic Residual codes; unclassified (4 sources) Asymptomatic menopausal state; Translations: [ASYMPTOMATIC MENOPAUSAL STATE] Onset: 08-11-2022 Episodic Spondylosis; intervertebral disc disorders; other back problems (9 sources) Cervical disc disorder; Translations: [Cervical disc disorder, unspecified, unspecified cervical region] Onset: 08-29-2015 03-27-2022 Chronic Spondylosis; intervertebral disc disorders; other back problems (4 sources) Cervicalgia; Translations: [Radiculopathy, lumbar region] Onset: 03-10-2022 Episodic Unclassified (6 sources) Long-term current use of aspirin 06-04-2021 Unclassified (1 source) LOW BACK PAIN, UNSPECIFIED; Translations: [LOW BACK PAIN, UNSPECIFIED] Onset: 08-15-2022 Unclassified (4 sources) Asymptomatic microscopic hematuria 11-26-2022 Unclassified (4 sources) Finding of sensation of bladder 12-09-2022 Unclassified (3 sources) 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; Translations: [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] Onset: 07-06-2023 Unclassified (1 source) Suspicious Skin Lesion Onset: 03-07-2024 Unclassified (1 source) MAW Onset: 10-07-2023 Unclassified (1 source) Acute cough; Translations: [Acute cough] Onset: 09-14-2023 Varicose veins of lower extremity (16 sources) Varicose veins of lower extremity; Translations: [Varicose veins of bilateral lower extremities with pain] Episodic Past or Other Problems Problem Classification Problem Date Documented Da te Episodic/Chronic Allergic reactions (9 sources) Eczema; Translations: [Dermatitis, unspecified] Onset: 2 03-27-2022 Episodic Conditions associated with dizziness or vertigo (15 sources) Dizziness and giddiness; Translations: [Benign paroxysmal positional vertigo] Onset: 6 Episodic Disorders of teeth and jaw (9 sources) Temporomandibular joint disorder; Translations: [Unspecified temporomandibular joint disorder, unspecified side] Onset: 8 03-27-2022 Episodic E Codes: Fall (1 source) Fall on same level from slipping, tripping and stumbling without subsequent striking against object, initial encounter; Translations: [FALL SAME LVL SLIP NO STRK OBJ INIT] Onset: 2 Episodic Gastritis and duodenitis (9 sources) Duodenitis; Translations: [Duodenitis without bleeding] Onset: 1 03-27-2022 Episodic Headache; including migraine (6 sources) Headache; including migraine; Translations: [HEADACHE UNSPECIFIED] Onset: 2 Immunizations and screening for infectious disease (1 source) Encounter for screening for human papillomavirus (HPV); Translations: [ENC SCREENING HUMAN PAPILLOMAVIRUS] Onset: 2 Episodic Mood disorders (9 sources) Depressive disorder; Translations: [Depressive disorder] Onset: 2 Resolved: 4 03-27-2022 Chronic Mood disorders (9 sources) Mood disorders Onset: 3 Resolved: 4 07-23-2022 Nutritional deficiencies (9 sources) Cobalamin deficiency; Translations: [Deficiency of other specified B group vitamins] Onset: 2 03-27-2022 Episodic Other and unspecified benign neoplasm (9 sources) Cavernous hemangioma; Translations: [Hemangioma unspecified site] Onset: 2 03-27-2022 Episodic Other bone disease and musculoskeletal deformities (9 sources) Cervical somatic dysfunction; Translations: [Segmental and somatic dysfunction of cervical region] Onset: 2 04-13-2022 Episodic Other bone disease and musculoskeletal deformities (9 sources) Segmental and somatic dysfunction; Translations: [Segmental and somatic dysfunction of thoracic region] Onset: 2 04-13-2022 Episodic Other circulatory disease (9 sources) Elevated blood pressure; Translations: [Elevated blood-pressure reading, without diagnosis of hypertension] Onset: 9 03-27-2022 Episodic Other connective tissue disease (9 sources) Muscle pain; Translations: [Myalgia, unspecified site] Onset: 2 03-27-2022 Episodic Other injuries and conditions due to external causes (1 source) Unspecified injury of head, initial encounter; Translations: [UNSPECIFIED INJURY HEAD INITIAL ENC] Onset: 2 Episodic Other lower respiratory disease (1 source) Cough Onset: 4 Episodic Other nutritional; endocrine; and metabolic disorders (9 sources) Overweight; Translations: [Overweight] Onset: 2 Resolved: 4 03-27-2022 Episodic Other upper respiratory disease (9 sources) Deviated nasal septum; Translations: [Deviated nasal septum] Onset: 9 03-27-2022 Episodic Other upper respiratory infections (2 sources) Acute maxillary sinusitis, unspecified; Translations: [Acute pansinusitis, unspecified] Onset: 4 Episodic Phlebitis; thrombophlebitis and thromboembolism (10 sources) Acute deep venous thrombosis of calf; Translations: [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] Onset: 4 07-06-2023 Episodic Residual codes; unclassified (1 source) Acquired absence of both cervix and uterus; Translations: [ACQUIRED ABSENCE BOTH CERVIX AND UTERUS] Onset: 2 Episodic Unclassified (1 source) Low back pain, unspecified M54.50 Unclassified (1 source) Vaginal yeast infection B37.31 Unclassified (2 sources) Onset: 4 09-14-2023 Results Test Name Value Interpretation Reference Range Facility Ambulatory Visit Summaryon 1 06-05-2023 Ambulatory Visit Summary Ambulatory Visit Summary PEARL JONES :1950 Visit Date:05/08/2021 Ambulatory Visit Instructions Your Diagnosis Kidney stone Microscopic hematuria Tests Performed KUB -- Results Pending -- US Renal -- Results Pending -- Please visit your patient portal for your results or contact your primary care physician. Your Care Team Primary Care Physician - JOAQUIN DEVINE DO This Is Your Medications List amlodipine (amLODIPine 5 mg Tab) aspirin (aspirin 81 mg oral capsule) atorvastatin (atorvastatin 20 mg Tab) cholecalciferol (Vitamin D3) metformin (metformin 500 mg Tab) Procedures Performed Cystoscopy (06/16/2021), Colonoscopy, Colonoscopy, Hysterectomy. Medications What How Much When Instructions Unchanged amlodipine (amLODIPine 5 mg Tab) Every day Unchanged aspirin (aspirin 81 mg oral capsule) Every 4 hours Unchanged atorvastatin (atorvastatin 20 mg Tab) Every day Unchanged cholecalciferol (Vitamin D3) Unchanged metformin (metformin 500 mg Tab) 2 times a day Allergies Bactrim (Other) amoxicillin (Rash) cefdinir (Rash) lisinopril (Cough) Problems Ongoing - Any problem that you are currently receiving treatment for. Aspirin long-term use Asymptomatic microscopic hematuria Feeling of incomplete bladder emptying Kidney stone Leaking of urine OAB (overactive bladder) Renal cyst Patient Survey You may receive a survey via text or e-mail asking about your office visit. Please share your experience with us by completing your survey. We appreciate your feedback and thank you for choosing us for your care. [facility] Reminderson 04-05-2024 Reminders Reminders From: Kathy Clements To: EU - Administrative; Sent: 04/05/2024 11:26:09 EST Show up: 06/07/2024 11:25:00 EST Subject: Ambulatory Reminder Due Date/Time: 10/05/2024 11:25:00 EDT Reminder/Recall Patient needs scheduled with an ANA M for a 6m f/u with YAMILKA and KUB, due back mid september 2024 [facility] Reminders Reminders From: Gi Su To: EU - Recalls Lue; Sent: 04/05/2024 11:10:16 EST Show up: 08/03/2024 12:10:00 EDT Subject: Renal US and KUB Due Date/Time: 08/03/2024 12:10:00 EDT Reminder Message Renal US and KUB prior to 6 mos appt. [facility]. Orders created. Normal [facility] Urology Office/Clinic Noteon 04-05-2024 Urology Office/Clinic Note Urology Office/Clinic Note Chief Complaint F/U HPI Staff 74 yo female here for 3 mos f/up with renal US and KUB. Previous dx: ASM, OAB, kidney stones, feeling of incomplete bladder emptying, renal cyst. Micro UA 12/15/23 RBC 4-20 Neg culture. KUB 03/28/24 [facility]. Renal US 03/28/24 [facility]. Dysuria: no Incomplete bladder emptying: no Hematuria: no Frequency: 3-4 hours Urgency: no Nocturia: 3x's Stream: good stream Post void dripping: no Wearing pads/ Depends: no Urge incontinence: few times a week Stress incontinence: no Incontinence without Sensory Awareness: no Abdominal pain: occasionally will have rt. side pain Flank pain: no Sexual complaints: _ History of Present Illness Tests reviewed: reviewed UA, micro UA, UCx, renal US, KUB. I have reviewed the previous health record information and history for this patient from Dr. Pulido. I have reviewed and verified the staff HPI to be accurate for this encounter. There have been no associated fever, chills, flank pain, or blood in the urine. Denies any urinary infections since last encounter. Review of Systems PHQ Score Initial Depression Screen Score: 1 SCORE ROS - Provider Constitutional: denies weight loss, denies hot flashes. Eyes: denies eye problems. Gastrointestinal: denies nausea, denies vomiting. Cardiovascular: denies chest pain or angina. Integumentary: no dryness Musculoskeletal: denies musculoskeletal symptoms. ENMT: denies otolaryngeal symptoms. Respiratory: no shortness of breath. Heme/Lymph: denies easy bleeding tendency, denies easy bruising tendency. Psychiatric: no confusion, no anxiety. Genitourinary: See HPI. Physical Exam Vitals & Measurements HT: 60 in HT: 152 cm WT: 60.8 kg WT: 134.041 lb BMI: 26.32 General Appearance: alert , no acute distress, well nourished, well developed female. Assessment/Plan BBSQ 14 21) 1. Kidney stone (N20.0: Calculus of kidney) CT 11/22/21 - kidneys are grossly normal without calculi or hydronephrosis. YAMILKA 12/02/22 - 3 mm nonobstructing Lt renal calculus. KUB 12/17/23 [facility] - neg for stones. Renal US 12/17/23 [facility] - nonobstructing 5 mm stone within right inferior pole. KUB 03/28/24 [facility] - neg for stones. Renal US 03/28/24 [facility] - 6 mm nonobstructing right nephrolith. C/o intermittent R flank pain, improvement after she has a bowel movement. Describes pain as an ache. Likely due to constipation. Discussed MET vs surgical management due to size increase. Pt has a chance of passing stone on her own if it would decide to move. Will cont stone surveillance. Consider surgical management if stone would continue to grow. Discussed dietary modifications -Renal US and KUB in 6 mos -90oz of water daily with diluted lemon 2. Asymptomatic microscopic hematuria (R31.21: Asymptomatic microscopic hematuria) No smoking history. Microscopic hematuria likely due to kidney stone. FISH/Cytology 06/16/21 - negative Outside PCP records with low microhematuria. Hematuria workup including cystoscopy, urine cytology and CT urogram from [facility] 06/10/21 all negative. Micro UA 12/15/23 RBC 4-20 Neg culture. UA today shows moderate blood and trace leuks. Pt denies gross hematuria, burning or vaginal dryness/irritation. Discussed potential etiologies and implications of hematuria with patient. These include: Prostatic disease (prostatitis, BPH, cancer), trauma (recent catheterization, etc), Tumor (renal, urothelial, prostatic, urethral, etc), infection/inflammation (UTI, cystitis, recent catheterization, interstitial cystitis, radiation), stones, period/menses (pseudohematuria), obstructive uropathy (urolithiasis, stricture, etc), nephritis (glomeurlonephritis, Alport's syndrome, Moreira's IgA nephropathy, interstitial nephritis, etc), Tuberculosis, thrombosis (renal vein thrombosis, renal infarct, pseudoaneurysm, etc) and hematologic (bleeding disorders, anticoagulation, sickle cells disease, etc) Urologic malignancy is more common in patients with gross hematuria (23%) than in patient with microscopic hematuria (5%). In adults with microscopic hematuria, the initial evaluation fails to identify an etiology in 43% of patients. Approximately 1-3% of these patients eventually develop a urologic malignancy. In adults with gross hematuria, the initial evaluation fails to identify an etiology in 8% of patients. Approximately, 18% of these patients eventually develop a urologic malignancy. Work-up needed: 1. UA, urine culture 2. Urine cytology for gross or recurrent microscopic hematuria 3. CT urogram 4. Cystoscopy Declines repeating workup despite the risks. May be due to stone. -Monitor for gross hematuria or irritative voiding sx 3. OAB (overactive bladder) (N32.81: Overactive bladder) BBSQ 14 (21) UUI > CIELO Again discussed conservative management such as kegels vs med management, Botox and Axonics. Pt does not feel symptoms warrant treatment. Educated pt on kegel exercises and the importance (more content not included)... Normal [facility] Comment on above: Result Comment: Elec tronically Signed By: Norma Pulido MD\.br\Date and Time Signed: 04/05/24 11:45 EST\.br\Electronically Co-Signed By: Gi Su\.br\Date and Time Co-Signed: 04/05/24 11:09 EST Reminderson 03-06-2024 Reminders Reminders From: Kathy Clements To: EU - Recalls Ashok; Sent: 01/31/2024 14:44:38 EDT Show up: 03/07/2024 14:44:00 EDT Subject: Ambulatory Reminder Due Date/Time: 03/28/2024 14:44:00 EST Reminder/Recall Patient needs to be scheduled for a YAMILKA and KUB prior to her 04/05/24 appointment Patient would like to have YAMILKA/KUB done at [facility] Patient Letter FTon 2023 Patient Letter [facility] Patient Letter [facility] December 22, 2023 PEARL Schneider [facility] [address] : 1950 Dear Pearl oJnes, We have been trying to reach you with no success. It is important that you return our call regarding your recent test results upon receiving this letter. Also, at the time of your call, please provide us with your current information. Thank you for your prompt attention to this matter. Sincerely, [facility] [address], [place] [address] [facility] C Urineon 12-17-2023 Bacteria identified Cx Nom (U) Microbiology PROCEDURE: Urine Culture [R1] SOURCE: U CleanCatch BODY SITE: COLLECTED DATE/TIME: 12/15/2023 09:34 EDT RECEIVED DATE/TIME: 12/15/2023 23:53 EDT START DATE/TIME: 12/15/2023 23:53 EDT FREE TEXT SOURCE: Ashok LAWTON, Norma Pulido MD, Norma Chambers FINAL REPORTS Final Report [] Verified Date/Time: 12/17/2023 10:50 EDT 1,000 cfu/ml Mixed skin contaminants Performing Locations R1: This test was performed at: [facility], [address] [place] [address], [id number]- , [place], [facility] Comment on above: Performed By: #### [id number] #### [facility] [address] [place] [id number] Ambulatory Visit Summaryon 0 12-15-2023 Ambulatory Visit Summary Ambulatory Visit Summary PEARL JONES :1950 Visit Date:12/15/2023 Ambulatory Visit Instructions Your Diagnosis Asymptomatic microscopic hematuria OAB (overactive bladder) Kidney stones Feeling of incomplete bladder emptying Renal cyst Aspirin long-term use Tests Performed US Renal -- Results Pending -- XR Abdomen 1 View -- Results Pending -- Please visit your patient portal for your results or contact your primary care physician. Your Care Team Attending Physician - Norma Pulido MD Primary Care Physician - JOAQUIN DEVINE DO This Is Your Medications List Contact prescribing physician if questions or concerns amlodipine (amLODIPine 5 mg Tab) aspirin (aspirin 81 mg oral capsule) atorvastatin (atorvastatin 20 mg Tab) cholecalciferol (Vitamin D3) metformin (metformin 500 mg Tab) Procedures Performed Cystoscopy (06/16/2021), Colonoscopy, Colonoscopy, Hysterectomy. Discharge Vitals Temperature (Temporal Artery) 37 ?C Heart Rate (Peripheral) 77 Respiratory Rate 16 Blood Pressure 135/84 Height 152 cm Height 60 in Weight 60.8 kg Weight 133.76 lb BMI 26.32 What to do next Scheduled Follow-Up Appointments Wednesday 10:45 AM EDT With: Norma Pulido MD Where: [facility] [place] [address]- You Need to Schedule the Following Appointments Follow Up with Norma Pulido MD, URL, URO When: Comments: 6 mos w/YAMILKA Where: Medications What How Much When Instructions Unchanged amlodipine (amLODIPine 5 mg Tab) Every day Contact prescribing physician if questions or concerns Unchanged aspirin (aspirin 81 mg oral capsule) Every 4 hours Contact prescribing physician if questions or concerns Unchanged atorvastatin (atorvastatin 20 mg Tab) Every day Contact prescribing physician if questions or concerns Unchanged cholecalciferol (Vitamin D3) Contact prescribing physician if questions or concerns Unchanged metformin (metformin 500 mg Tab) 2 times a day Contact prescribing physician if questions or concerns Allergies Bactrim (Other) amoxicillin (Rash) cefdinir (Rash) lisinopril (Cough) Problems Ongoing - Any problem that you are currently receiving treatment for. Aspirin long-term use Asymptomatic microscopic hematuria Feeling of incomplete bladder emptying Leaking of urine Renal cyst Patient Survey You may receive a survey via text or e-mail asking about your office visit. Please share your experience with us by completing your survey. We appreciate your feedback and thank you for choosing us for your care. Normal [facility] URINALYSISOrdered By: SYSTEM SYSTEM on 12-15-2023 Bilirubin Ql (U) Negative Normal Negativemg/ dL [facility] UA Auto SS Clarity (U) Clear (12/15/23 9:34 AM) Normal Clear [facility] UA Auto SS Color (U) Light-Yellow 1 (12/15/23 9:34 AM) Normal Yellow [facility] UA Auto SS Comment on above: Interpretive Data: M icroscopic readings are only performed on those samples that meet specific criteria set forth by [facility]. Epithelial cells.squamous Auto (Urine sed) [#/Area] 0-2 graded/HPF Invalid Interpretation Code [facility] UA Auto SS Glucose Ql (U) Negative Normal Negativemg/ dL [facility] UA Auto SS Hemoglobin Auto test strip (U) [Mass/Vol] 1+ mg/dL Invalid Interpretation Code Negativemg/ dL [facility] UA Auto SS Ketones Auto test strip Ql (U) Negative Normal Negativemg/ dL [facility] UA Auto SS Leukocyte esterase Auto test strip Ql (U) Negative Normal NegativeLeu /uL [facility] UA Auto SS Mucus Auto Ql (U) Trace graded/LPF Normal Negati vegra ded/LPF [facility] UA Auto SS Nitrite Auto test strip Ql (U) Negative Normal Negativemg/ dL [facility] UA Auto SS pH (U) 6.5 *NA* (12/15/23 9:34 AM) Invalid Interpretation Code 5.0 - 9.0 [facility] UA Auto SS Protein Ql (U) Negative Normal Negativemg/ dL [facility] UA Auto SS RBC Ql (U) 4-20 graded/HPF Invalid Interpretation Code 0-3graded/H PF [facility] UA Auto SS Specific gravity (U) [Rel density] 1.010 *NA* (12/15/23 9:34 AM) Invalid Interpretation Code 1.005 - 1.030 [facility] UA Auto SS Urobilinogen (U) [Mass/Vol] Negative Normal Negativemg/ dL [facility] UA Auto SS URINALYSISOrdered By: Ernesto Arias on 12-15-2023 UA Spec Desc Clean Catch (7/24/24 9:34 AM) Normal [facility] UA Auto SS Urology Office/Clinic Noteon 12-15-2023 Urology Office/Clinic Note Urology Office/Clinic Note Chief Complaint leaking of urine HPI Staff 1 year f/u. Last seen in office 12/09/22 by VASILIY. Dx: AMH, renal cyst, leaking of urine, feeling of MARTHA, aspirin long-term use. UA sent for micro and cx at prior OV - both neg. Dysuria: no Incomplete bladder emptying: yes Hematuria: no gross but moderate microhematuria Frequency: every 2-3 hours Urgency: a few times a week Nocturia: 3x Stream: pt states good stream no straining Leaking: yes a few times a week Post void dripping: no Wearing pads/ Depends: wears a pad when she leaves the house just in case Urge incontinence: states this happens if she drinks a large amount of water Stress incontinence: no Incontinence without Sensory Awareness: no Abdominal pain: no Flank pain: right sided when she is doing physical activity Sexual complaints: no History of Present Illness Tests reviewed: reviewed UA, prior UA/Cx I have reviewed the previous health record information and history for this patient from [facility]. I have reviewed and verified the staff HPI to be accurate for this encounter. Review of Systems PHQ Score Initial Depression Screen Score: 0 SCORE ROS - Provider Constitutional: denies weight loss, denies hot flashes. Eyes: denies eye problems. Gastrointestinal: denies nausea, denies vomiting. Cardiovascular: denies chest pain or angina. Integumentary: no dryness Musculoskeletal: denies musculoskeletal symptoms. ENMT: denies otolaryngeal symptoms. Respiratory: no shortness of breath. Heme/Lymph: denies easy bleeding tendency, denies easy bruising tendency. Psychiatric: no confusion, no anxiety. Genitourinary: See HPI. Physical Exam Vitals & Measurements T: 37 ?C(Temporal Artery) HR: 77(Peripheral) RR: 16 BP: 135/84 HT: 60 in HT: 152 cm WT: 60.8 kg WT: 133.76 lb BMI: 26.32 General Appearance: alert , no acute distress, well nourished, well developed female. Assessment/Plan 73 year old female here for follow up of AMH and OAB BBS 21. 1. Asymptomatic microscopic hematuria (R31.21: Asymptomatic microscopic hematuria) FISH/Cytology 06/16/21 - negative Outside PCP records with low microhematuria. Hematuria workup including cystoscopy, urine cytology and CT urogram from [facility] 06/10/21 all negative. UA today shows moderate blood, negative for nitrites and leuks. Pt denies gross hematuria, burning or vaginal dryness/irritation. -Urine sent for micro and culture today. Possible cysto if positive 2. OAB (overactive bladder) (N32.81: Overactive bladder) Pt c/o frequency every 2-3 hours, UUI a few times a week when drinking lots of fluid (specifically water), leakage and wears a pad when leaving the house. UUI > CIELO. Bladder irritants sheets given. Discussed with the patient that limiting fluids which are irritating to the bladder may help decrease urinary symptoms. Also educated pt about kegel exercises, PFPT +/- PT vs medication options vs Botox or other procedures in the future. Pt prefers conservative mgmt at this time. -Kegel exercises, timed voids, paper education provided -Follow up in 3 months 3. Kidney stones (N20.0: Calculus of kidney) CT 11/22/21 - kidneys are grossly normal without calculi or hydronephrosis. YAMILKA 12/02/22 - 3 mm nonobstructing Lt renal calculus. Recommended pt. to increase fluid intake to 6-7 16oz bottles a day; preferably water, lemon/rincon, more fruits/vegetables Pt opts to continue monitoring stone growth. -YAMILKA & KUB @ [facility]. Call pt with results. 4. Feeling of incomplete bladder emptying (R39.14: Feeling of incomplete bladder emptying) PVR (cc): 12/09/22 - 25 No PVR today, IO device pending replacement. See #2 5. Renal cyst (N28.1: Cyst of kidney, acquired) CT urogram from [facility] 06/10/21 3mm right renal cortex hypodensity noted, too small to characterize, [address] scan recommended for further evaluation/stability urine. CT 11/22/21 - kidneys are grossly normal without calculi or hydronephrosis. Previously noted right renal cysts are not seen on this examination which may be due to the lack of contrast. YAMILKA 12/02/22 - 3 mm nonobstructing Lt renal calculus, 6 mm cyst involving the Rt kidney [1] No further surveillance of simple cyst Follow-up With When Contact Information Ashok LAWTON, Norma Chambers, URL, URO follow up in 3 mos w/ YAMILKA and KUB Patient Education Haydee, Jane Sotomayor, personally scribed for Dr. Pulido on 12/15/2023 09:39:45. . Documentation recorded by the Jane alvarado , accurately reflects the services(s) I performed and decisions made by me. Authenticated by Dr. Pulido on 12/15/2023 09:49:29. Problem List/Past Medical History Ongoing Aspirin long-term use Asymptomatic microscopic hematuria Feeling of incomplete bladder emptying Leaking of urine Renal cyst Historical No qualifying data Procedure/Surgical History Cystoscopy (06/16/2021), Colonoscopy, C (more content not included)... Normal [facility] Comment on above: Result Comment: Elec tronically Signed By: Norma Pulido MD\.br\Date and Time Signed: 12/15/23 09:50 EDT\.br\Electronically Co-Signed By: Jane Sotomayor\.br\Date and Time Co-Signed: 12/15/23 09:40 EDT COMPREHENSIVE METABOLIC PANE Navid 07-06-2023 Albumin [Mass/Vol] 4.5 g/dL Normal 3.2-5.3 [facility] Comment on above: Performed By: #### C MAGGIE, [id number], 2088-05 #### [facility] ([id number]) [address], [address] [place] [address] ALP [Catalytic activity/Vol] 49 U/L Normal 39-130 [facility] Comment on above: Performed By: #### C MAGGIE, [id number], 2088-05 #### [facility] ([id number]) [address], [address] [place] [address] ALT [Catalytic activity/Vol] 9 U/L Normal 0-31 [facility] Comment on above: Performed By: #### C MAGGIE, , 2088-05 #### [facility] ([id number]) [address], [address] [place] [address] Anion gap [Moles/Vol] 10 mmol/L Normal 5-15 [facility] Comment on above: Performed By: #### C MAGGIE, , 2088-05 #### [facility] ([id number]) [address] [place] [address] AST [Catalytic activity/Vol] 14 U/L Normal 0-41 [facility] Comment on above: Performed By: #### Satinder SERRANO, , 2088-05 #### [facility] ([id number]) [address], [address] [place] [address] Bilirubin [Mass/Vol] 0.4 mg/dL Normal 0.3-1.2 [facility] Comment on above: Performed By: #### Satinder SERRANO, , 2088-05 #### [facility] ([id number]) [address], [address] [place] [address] Calcium [Mass/Vol] 10.2 mg/dL Normal 8.5-10.5 [facility] Comment on above: Performed By: #### Satinder SERRANO, , 2088-05 #### [facility] ([id number]) [address], [address] [place] [address] Chloride [Moles/Vol] 105 mmol/L Normal 98-109 [facility] Comment on above: Performed By: #### Satinder SERRANO, , 2088-05 #### [facility] ([id number]) [address] [place] [address] CO2 [Moles/Vol] 28 mmol/L Normal 22-32 [facility] Comment on above: Performed By: #### Satinder SERRANO, , 2088-05 #### [facility] ([id number]) [address], [address] [place] [address] Creatinine [Mass/Vol] 0.62 mg/dL Normal 0.40-1.00 [facility] Comment on above: Result Comment: METH OD TRACEABLE TO IDMS STANDARD Performed By: #### C MAGGIE, , 2088-05 #### [facility] ([id number]) [address], [address] [place] [address] eGFR (CKD-EPI) NON-RACE DEPENDENT >90 Normal >59 [facility] Comment on above: Result Comment: Reported eGFR is based on the CKD-EPI 2020 equation that does not use a race coefficient. Performed By: #### Satinder SERRANO, , 2088-05 #### [facility] ([id number]) [address], [address] [place] [address] Glucose [Mass/Vol] 107 mg/dL High 65-99 [facility] Comment on above: Performed By: #### Satinder SERRANO, , 2088-05 #### [facility] ([id number]) [address], [address] [place] [address] Potassium [Moles/Vol] 3.5 mmol/L Normal 3.5-5.0 [facility] Comment on above: Performed By: #### Satinder SERRANO, , 2088-05 #### [facility] ([id number]) [address], [address] [place] [address] Protein [Mass/Vol] 7.4 g/dL Normal 6.0-8.0 [facility] Comment on above: Performed By: #### Satinder SERRANO, , 2088-05 #### [facility] ([id number]) [address], [address] [place] [address] Sodium [Moles/Vol] 143 mmol/L Normal 134-146 [facility] Comment on above: Performed By: #### C MAGGIE, 95839-3, 2088-05 #### [facility] ([id number]) [address], [address] [place] [address] Urea nitrogen [Mass/Vol] 8 mg/dL Normal 5-27 [facility] Comment on above: Performed By: #### C MAGGIE, 69764-6, 2088-05 #### [facility] ([id number]) [address], [address] [place] [address] Comprehensive metabolic pane navid 07-06-2023 Albumin [Mass/Vol] 4.5 g/dL 3.2 - 5.3 g/dL [facility] ALP [Catalytic activity/Vol] 49 U/L 39 - 130 U/L [facility] ALT No additional P-5'-P [Catalytic activity/Vol] 9 U/L 0 - 31 U/L [facility] Anion gap [Moles/Vol] 10 mmol/L 5 - 15 mmol/L [facility] AST [Catalytic activity/Vol] 14 U/L 0 - 41 U/L [facility] Bilirubin [Mass/Vol] 0.4 mg/dL 0.3 - 1 .2 mg/dL [facility] Calcium [Mass/Vol] 10.2 mg/dL 8.5 - 10. 5 mg/dL [facility] Chloride [Moles/Vol] 105 mmol/L 98 - 10 9 mmol/L [facility] CO2 [Moles/Vol] 28 mmol/L 22 - 32 mmol/L [facility] Creatinine [Mass/Vol] 0.62 mg/dL 0.40 - 1.00 mg/dL [facility] Comment on above: METHOD TRACEABLE TO IDVT STANDARD eGFR (CKD-EPI)non-race dependent - PINF [facility] Comment on above: Reported eGFR is based on the CKD-EPI 2020 equation that does not use a race coefficient. Glucose [Mass/Vol] 107 mg/dL High 65 - 99 mg/dL [facility] Potassium [Moles/Vol] 3.5 mmol/L 3.5 - 5.0 mmol/L [facility] Protein [Mass/Vol] 7.4 g/dL 6.0 - 8.0 g/dL [facility] Sodium [Moles/Vol] 143 mmol/L 134 - 146 mmol/L [facility] Urea nitrogen [Mass/Vol] 8 mg/dL 5 - 27 mg/dL [facility] DIRECT LDLon 07-06-2023 Cholesterol in LDL [Mass/Vol] 154 mg/dL High <130 [facility] Comment on above: Result Comment: LDL <100 mg/dL - Desirable LDL 130-159 mg/dL - Borderline High Risk LDL >160 mg/dL - High Risk Performed By: #### Satinder SERRANO, , 2088-05 #### [facility] ([id number]) [address], [address] [place] [address] HGB A1C (GLYCO-HGB)on 2023 Glucose [Mass/Vol] 157 mg/dL Normal [facility] Comment on above: Performed By: ###Justin Rajan MP, , 2088-05 #### [facility] ([id number]) [address], [address] [place] [address] HbA1c (Bld) [Mass fraction] 7.1 % High 4.4-5.6 [facility] Comment on above: Result Comment: NOTE ADA Guidelines Result HgbA1c Normal : less than 5.7 % Prediabetes : 5.7 % to 6.4 % Diabetes : > 6.4 % Use with caution in patients with abnormal hemoglobin variants as the half-life of red blood cells and in vivo glycation rates are affected. Performed By: ###[place], [address]-7, 2088-05 #### [facility] ([id number]) [address], [address] [place] [address] Lipid 1996 panelon 4 Cholesterol [Mass/Vol] 234 mg/dL High 150 - 200 mg/dL [facility] Cholesterol in HDL [Mass/Vol] 54 mg/dL 39 - PINF mg/dL [facility] Comment on above: HDL <40 mg/dL - High Risk HDL > or = 40mg/dL- Desirable HDL >60 mg/dL - Negative Risk Cholesterol in LDL [Mass/Vol] RESULT NOT REPORTED DUE TO HIGH TRIGLYCERIDE NINF - 130 mg/dL [facility] Cholesterol in VLDL [Mass/Vol] 84 mg/dL High 0 - 30 mg/dL [facility] Cholesterol.total/Ch olesterol in HDL [Mass ratio] 4.3 {ratio} 1.0 - 5.0 [facility] Triglyceride [Mass/Vol] 418 mg/dL High 27 - 150 mg/dL [facility] Cholesterol [Mass/Vol] 234 mg/dL High 150-200 [facility] Comment on above: Performed By: #### Satinder SERRANO, 57195-0, 2088-05 #### [facility] ([id number]) [address], [address] [place] [address] Cholesterol in HDL [Mass/Vol] 54 mg/dL Normal >39 [facility] Comment on above: Result Comment: HDL <40 mg/dL - High Risk HDL > or = 40mg/dL- Desirable HDL >60 mg/dL - Negative Risk Performed By: #### Satinder SERRANO, 44878-2, 2088-05 #### [facility] ([id number]) [address] [place] [address] Cholesterol in VLDL [Mass/Vol] 84 mg/dL High 0-30 [facility] Comment on above: Performed By: #### C MAGGIE, , 2088-05 #### [facility] ([id number]) [address], [address] [place] [address] CHOLESTEROL:HDL 4.3 Normal 1.0-5.0 [facility] Comment on above: Performed By: #### Satinder SERRANO, , 2088-05 #### [facility] ([id number]) [address], [address] [address] LDL (CALC) RESULT NOT REPORTED DUE TO HIGH TRIGLYCERIDE Normal <130 [facility] Comment on above: Performed By: #### Satinder SERRANO, , 2088-05 #### [facility] ([id number]) [address], [address] [address] Triglyceride [Mass/Vol] 418 mg/dL High 27-150 [facility] Comment on above: Performed By: #### Satinedr SERRANO, , 2088-05 #### [facility] ([id number]) [address], [address] [address] No Panel Informationon 07-06 Interpretation and review of laboratory results Abnormal [facility] URINALYSISOrdered By: Stephanie moy on 12-09-2022 Bilirubin Ql (U) Negative (12/09/22 3:29 PM) Normal Negative [facility] UA Auto SS Clarity (U) Clear (12/09/22 3:29 PM) Normal Clear [facility] UA Auto SS Color (U) Yellow (12/09/22 3:29 PM) Normal Yellow [facility] UA Auto SS Crystals LM Ql (Urine sed) Present (12/09/22 3:29 PM) Normal [facility] UA Auto SS Epithelial cells.squamous LM.HPF (Urine [...] Interpretation Code Negative [facility] UA Auto SS Dupo.plasma/Lithi um.RBC (Bld) [Mass ratio] 0-3 /HPF Normal [...] [facility] UA Auto SS Urobilinogen Qn (U) [id number] {Tyrell'U}/dL Normal 0.0 - 1.0 EU/dL [facility] UA Auto SS WBC Auto Ql (U) Negative (12/09/22 3:29 PM) Normal Negative [facility] UA Auto SS WBC LM.HPF (Urine sed) [#/Area] 0-5 /HPF Normal 0-5/HPF [facility] UA Auto SS MG MAMM RT DIAG FUon 023 MG MAMM RT DIAG FU Patient: PEARL JONES Exam Date: 10/05/2022 : 1950 Gender:F Ordering : DR GINO CARRASQUILLO M.D. Admission #: [id number] Family : Order #: [id number] CLICK HERE TO VIEW EXAM RADIOLOGY REPORT [...] Family Cancers None LOCATION: [facility] BREAST COMPOSITION: Heterogeneously dense,which may obscure small [...] 10/05/2022 at 08:35 Normal [facility] US BREAST RIGHT LIMITEDon US BREAST RIGHT LIMITED Patient: PEARL JONES Exam Date: 10/05/2022 : 1950 Gender:F Ordering : DR GINO CARRASQUILLO M.D. Admission #: [id number] Family : Order #: [id number] CLICK HERE TO VIEW EXAM RADIOLOGY REPORT [...] Family Cancers None LOCATION: [facility] BREAST COMPOSITION: Heterogeneously dense,which may obscure small [...] Menon M.D. on 10/05/2022 at 08:35 Normal [facility] MG MAMM SCREEN 3D SALMA CADon 09-22-2022 MG MAMM SCREEN 3D SALMA CAD Patient: PEARL JONES Exam Date: 09/22/2022 : 1950 Gender:F Ordering : DR GINO CARRASQUILLO M.D. Admission #: [id number] Family : Order #: [id number] CLICK HERE TO VIEW EXAM RADIOLOGY REPORT [...] No Treatments None Family Cancers None LOCATION: [facility] BREAST COMPOSITION: Heterogeneously dense,which may obscure [...] Hooker MD on 09/23/2022 at 08:48 Normal [facility] CBC AUTO DIFFon 08-12-2022 BASO # 0.0 103/ul Normal 0.0-0.1 [facility] Comment on above: Performed By: #### C BC ####[facility] [address] [place] [address]Dr. Silvino Clifton Basophils/100 WBC (Bld) 0.7 % Normal 0.2-2.0 [facility] Comment on above: Performed By: #### C BC ####[facility] Uwatscetdt[address] [place] [address]Dr. Silvino Clifton EO # 0.1 103/ul Normal 0.0-0.7 [facility] Comment on above: Performed By: #### C BC ####[facility] [address] [place], [place] [address]Dr. Silvino Clifton Eosinophils/100 WBC (Bld) 2.1 % Normal 0.9-7.0 [facility] Comment on above: Performed By: #### C BC ####[facility] L[address]ok[address] [place], [place] [address]Dr. Silvino Clifton Erythrocyte distribution width (RBC) [Ratio] 12.3 % Normal 11.0-15.0 [facility] Comment on above: Performed By: #### C BC ####[facility] [address] [place], [place] [address]Dr. Silvino Clifton Hematocrit (Bld) [Volume fraction] 38.2 % Normal 36.0-48.0 [facility] Comment on above: Performed By: #### C BC ####[facility] U[address] [place], [place] [address]Dr. Silvino Clifton Hemoglobin (Bld) [Mass/Vol] 12.8 g/dL Normal 12.0-16.0 [facility] Comment on above: Performed By: #### C BC ####[facility] [address] [place] [address]Dr. Silvino Clifton IG # 0.02 10e3/ul Normal 0.00-0.03 [facility] Comment on above: Performed By: #### C BC ####[facility] W[address]beizdi[address] [place] [id number]. Silvino Etienne IG % 0.3 % Normal 0.0-0.5 [facility] Comment on above: Performed By: #### C BC ####[facility] Tacbiunrql[address] [place] [phone]. Silvino Etienne LYMPH # 2.2 103/ul Normal 1.2-3.8 [facility] Comment on above: Performed By: #### C BC ####[facility] Dsdtcoqoht37[address] [place] [phone]. Suzyoriana Clifton Lymphocytes/100 WBC (Bld) 35.4 % Normal 20.5-60.0 [facility] Comment on above: Performed By: #### C BC ####[facility] [address]znakskw[address] [place] [address]Dr. Suzyoriana Clifton MANUAL DIFF REQ NO Normal [facility] Comment on above: Performed By: #### C BC ####[facility] Erqkytjxsz[address] [place] [address]Dr. Silvino Etienne MCH (RBC) [Entitic mass] 28.0 pg Normal 26.7-34.0 [facility] Comment on above: Performed By: #### C BC ####[facility] I[address] [place], [place] [address]Dr. Silvino Clifton MCHC (RBC) [Mass/Vol] 33.5 g/dL Normal 29.9-35.2 [facility] Comment on above: Performed By: #### C BC ####[facility] [address]qlzuvgz[address] [place] [address]Dr. Silvino Etienne MCV (RBC) [Entitic vol] 83.6 fL Normal 81.0-99.0 [facility] Comment on above: Performed By: #### C BC ####[facility] In[address] [place], [place] [address]Dr. Silvino Clifton MONO # 0.4 103/ul Normal 0.3-0.8 [facility] Comment on above: Performed By: #### C BC ####[facility] [address]rhwcel[address] [place] [address]Dr. Silvino Clifton Monocytes/100 WBC (Bld) 7.2 % Normal 1.7-12.0 [facility] Comment on above: Performed By: #### C BC ####[facility] [address]wovudvpr[address] [place] [address]Dr. Silvino Clifton NEUT # 3.3 103/ul Normal 1.4-6.5 [facility] Comment on above: Performed By: #### C BC ####[facility] Lwvoxbrajc[address] [place] [address]Dr. Silvino Clifton Neutrophils/100 WBC (Bld) 54.3 % Normal 43.0-75.0 [facility] Comment on above: Performed By: #### C BC ####[facility] Ezdavaikcd[address] [place] [address]Dr. Silvino Clifton Platelet mean volume (Bld) [Entitic vol] 11.3 fL Normal 9.5-13.5 [facility] Comment on above: Performed By: #### C BC ####[facility] Vpubzuugpj[address] [place] [address]Dr. Silvino Clifton PLT 208 103/ul Normal 150-450 [facility] Comment on above: Performed By: #### C BC ####[facility] Yaouixpvgr[address] [place] [address]Dr. Silvino Clifton RBC 4.57 106/ul Normal 4.20-5.40 [facility] Comment on above: Performed By: #### C BC ####[facility] Fhqjstsics[address] [place] [address]Dr. Silvino Clifton WBC 6.2 103/ul Normal 4.0-11.0 [facility] Comment on above: Performed By: #### C BC ####[facility] Femphwwmp[address] [place], [place] [address]Dr. Silvino Clifton GLYCOHEMOGLOBIN A1Con 2022 ADA RECOMMENDATION SEE BELOW Normal [facility] Comment on above: Result Comment: ADA RECOMMENDED LIMIT 4.0 - 6.0 ADA THERAPEUTIC TARGET < 7.0 ACTION SUGGESTED > 7.0 Performed By: #### A 1C #### [facility] Laboratory [address] [place], [place] [address] Dr. Silvino Clifton Glucose [Mass/Vol] 169 mg/dL Normal [facility] Comment on above: Performed By: #### A 1C #### [facility] Laboratory [address] [place], [place] [address] Dr. Silvino Clifton HbA1c (Bld) [Mass fraction] 7.5 % Critically high 4.5-6.2 [facility] Comment on above: Performed By: #### A 1C #### [facility] Laboratory [address] [place] [address] [address] Silvino Clifton LIPID PROFILEon 08-12-2022 CHOL-HDL RATIO NORM SEE BELOW Normal [facility] Comment on above: Result Comment: 3.3 - 4.4 LOW RISK 4.4 - 7.1 AVERAGE RISK 7.1 - 11.0 MODERATE RISK >11.0 HIGH RISK Performed By: #### M Charlotte, CMP, LIPID ####[facility] J[address]akpqwug[address] [place] [phone] Clifton Cholesterol [Mass/Vol] 185 mg/dL Normal <=200 [facility] Comment on above: Performed By: #### Hang Porter, CMP, LIPID ####[facility] [address]ouuqlnt[address] [place] [phone] Clifton Cholesterol in HDL [Mass/Vol] 58 mg/dL Normal 40-60 [facility] Comment on above: Performed By: #### Hang Porter, CMP, LIPID ####[facility] Twpmcovvig[address] [place], [place] [address]PbNatividad Clifton Cholesterol in LDL [Mass/Vol] 95.4 mg/dL Normal [facility] Comment on above: Performed By: #### M G, CMP, LIPID ####[facility] [address]lkwu[address] [place] [phone] Clifton Cholesterol.total/Ch olesterol in HDL [Mass ratio] 3.2 {ratio} Normal [facility] Comment on above: Performed By: #### M G, CMP, LIPID ####[facility] [address]zcfc[address] [place] [phone]. Silvino Clifton HDL NORMAL > or = 60 mg/dl - LO W CARDIOVASCULAR RISK <40 mg/dl - HIGH CARDIOVASCULAR RISK Normal [facility] Comment on above: Performed By: #### Hang Porter, CMP, LIPID ####[facility] Amvbotmyap[address] [place] [address]Dr. Silvino Clifton LDL CALC NORMAL SEE BELOW Normal [facility] Comment on above: Result Comment: <100 mg/dl OPTIMAL 100 - 129 mg/dl NEAR OR ABOVE OPTIMAL 130 - 159 mg/dl BORDERLINE HIGH 160 - 189 mg/dl HIGH >190 mg/dl VERY HIGH Performed By: #### M Charlotte, CMP, LIPID ####[facility] Th[address]ibqxxn[address] [place] [address]Dr. Silvino Clifton Triglyceride [Mass/Vol] 158 mg/dL Critically high <=150 [facility] Comment on above: Performed By: #### Hang Porter, CMP, LIPID ####[facility] Falqypznhw[address] [place] [address]Dr. Silvino Clifton VLDL CALC 31.6 mg/dL Normal [facility] Comment on above: Performed By: #### Hang Porter, CMP, LIPID ####[facility] [address]xcdemmc[address] [place] [address]Dr. Silvino Clifton MAGNESIUMon 08-12-2022 Magnesium [Mass/Vol] 1.6 mg/dL Critically low 1.8-2.4 [facility] Comment on above: Performed By: #### Hang Porter, CMP, LIPID ####[facility] Avjhyiqlfx[address] [place] [address]Dr. Silvino Clifton PROF 14(COMP METB)on 023 Albumin [Mass/Vol] 4.0 g/dL Normal 3.4-5.0 [facility] Comment on above: Performed By: #### Hang Porter, CMP, LIPID ####[facility] Sodwtfgegx[address] [place] [address]Dr. Silvino Clifton Albumin/Globulin [Mass ratio] 1.2 {ratio} Normal [facility] Comment on above: Performed By: #### Hang Porter, CMP, LIPID ####[facility] Vqpnteayrx[address] [place] [address]Dr. Silvino Clifton ALP [Catalytic activity/Vol] 61 U/L Normal 46-116 [facility] Comment on above: Performed By: #### M G, CMP, LIPID ####[facility] Okbmxnodmn[address] [place] [address]Dr. Silvino Clifton ALT [Catalytic activity/Vol] 17 U/L Normal 14-59 [facility] Comment on above: Performed By: #### M G, CMP, LIPID ####[facility] Qsmsqvgqcv14[address] [place] [address]Dr. Silvino Clifton Anion gap [Moles/Vol] 11.8 mmol/L Normal [facility] Comment on above: Performed By: #### M G, CMP, LIPID ####[facility] Awocefut[address] [place], [place] [address]Dr. Silvino Clifton AST [Catalytic activity/Vol] 16 U/L Normal 15-37 [facility] Comment on above: Performed By: #### M G, CMP, LIPID ####[facility] Q[address] [place], [place] [address]Dr. Suzyoriana Clifton Bilirubin [Mass/Vol] 0.4 mg/dL Normal 0.2-1.0 [facility] Comment on above: Performed By: #### M G, CMP, LIPID ####[facility] Qbyxocupdq380[address] [place] [address]Dr. Silvino Clifton Calcium [Mass/Vol] 9.3 mg/dL Normal 8.5-10.1 [facility] Comment on above: Performed By: #### M G, CMP, LIPID ####[facility] [address]vmpqetyt[address] [place] [address]Dr. Suzyoriana Clifton Chloride [Moles/Vol] 106 mmol/L Normal 98-107 [facility] Comment on above: Performed By: #### M G, CMP, LIPID ####[facility] Mdetlepiac[address] [place] [address]Dr. Silvino Clifton CO2 [Moles/Vol] 28.3 mmol/L Normal 21.0-32.0 [facility] Comment on above: Performed By: #### M G, CMP, LIPID ####[facility] Iwqukpyzus[address] [place] [phone]. Suzyoriana Clifton Creatinine [Mass/Vol] 0.72 mg/dL Normal 0.55-1.02 [facility] Comment on above: Performed By: #### M G, CMP, LIPID ####[facility] Ofiahgyakt[address] [place] [phone]. Silvino Clifton EGFR-AF GREEK >60 Normal >=60 [facility] Comment on above: Performed By: #### M G, CMP, LIPID ####[facility] Rvxlumwqhn3[address] [place] [phone]. Silvino Clifton EGFR-NON AF GREEK >60 Normal >=60 [facility] Comment on above: Performed By: #### M G, CMP, LIPID ####[facility] Niyxjpedtr[address] [place] [phone]. Silvino Clifton Globulin (S) [Mass/Vol] 3.3 g/dL Normal [facility] Comment on above: Performed By: #### M G, CMP, LIPID ####[facility] Keliazkecx34[address] [place] [phone]. Silvino Clifton Glucose [Mass/Vol] 167 mg/dL Critically high 74-106 [facility] Comment on above: Performed By: #### M G, CMP, LIPID ####[facility] Evzojaytlb364[address] [place] [phone]. Silvino Clifton Potassium [Moles/Vol] 4.1 mmol/L Normal 3.5-5.1 [facility] Comment on above: Performed By: #### M G, CMP, LIPID ####[facility] Wrsjmvqway4[address] [place] [phone]. Silvino Clifton Protein [Mass/Vol] 7.3 g/dL Normal 6.4-8.2 [facility] Comment on above: Performed By: #### M G, CMP, LIPID ####[facility] Qmnicuucud67[address] [place] [phone]. Silvino Clifton Sodium [Moles/Vol] 142 mmol/L Normal 136-145 [facility] Comment on above: Performed By: #### M G, CMP, LIPID ####[facility] [address]czbr[address] [place], [place] [address]El. Silvino Clifton Urea nitrogen [Mass/Vol] 13.0 mg/dL Normal 7.0-18.0 [facility] Comment on above: Performed By: #### M G, CMP, LIPID ####[facility] Muctbukbfu[address] [place], [place] [address]Gd. Silvino Clifton Urea nitrogen/Creatinine [Mass ratio] 18.1 mg/mg Normal [facility] Comment on above: Performed By: #### M G, CMP, LIPID ####[facility] Ijljlayabj[address] [place], [place] [address]Zj. Silvino Clifton XR LSPINE 2_3 VIEWSon 2022 [...] by: KYLIE MENON Date: 2022-08-12 09:32 Normal [facility] XR DEXA BONE DENSITYon 08-11 XR [...] by: KYLIE MENON Date: 2022-08-11 13:51 Normal [facility] CT CSPINE WO CONon CT CSPINE WO [...] M JESUS Date: 2022-03-09 11:40 Normal [facility] CT HEAD WO CONon 03-09-2022 CT HEAD [...] JESUS Date: 2022-03-09 11:29 Normal [facility] PAP ACOG PANEL 2: 30 to 65on 01-30-2022 . . Normal [facility] Comment on above: Performed By: #### 4 [id number] ####[facility] Jsmprnrxgr[address] [place] [phone]. Silvino Clifton Age Gdln ACOG Testing Comment Normal [facility] Comment on above: Result Comment: <21 or >65 or no age provided Performed By: #### 4 [id number] ####[facility] [address] [place], [place] [address]DrNatividad Clifton DIAGNOSIS: Comment Normal [facility] Comment on above: Result Comment: NEGA TIVE FOR INTRAEPITHELIAL LESION OR MALIGNANCY. CELLULAR CHANGES ASSOCIATED WITH ATROPHY ARE PRESENT. Performed By: #### 4 [id number] ####[facility] [address]sezuuc[address] [place], [place] [address]Dr. Silvino Clifton Methodology: Comment Normal [facility] Comment on above: Result Comment: This liquid based ThinPrep(R) pap test was screened with the use of an image guided system. Performed By: #### 4 [id number] ####[facility] [address]te[address] [place], [place] [address]Dr. Silvino Clifton Note: Comment Normal [facility] Comment on above: Result Comment: The Pap smear is a screening test designed to aid in the detection of premalignant and malignant conditions of the uterine cervix. It is not a diagnostic procedure and should not be used as the sole means of detecting cervical cancer. Both false-positive and false-negative reports do occur. . Performed By: #### 4 [id number] ####[facility] [address]oot[address]xc[address] [place], [place] [address]Dr. Silvino Clifton Performed by: Comment Normal [facility] Comment on above: Result Comment: Isabel Gong, Undraped Artist Model (ASCP) Performed By: #### 4 [id number] ####[facility] [address] [place], [place] [address]DrNatividad Clifton Specimen adequacy: Comment Normal [facility] Comment on above: Result Comment: Sati sfactory for evaluation. Performed By: #### 4 [id number] ####[facility] R[address]hbbej[address] [place], [place] [address]Zu. Silvino Clifton BASIC METABOLIC PANELon 07-0 BUN/CREATININE RATIO NOT APPLICABLE Normal 6-22 [facility] Comment on above: Order Comment: FASTI NG:YES FASTING: YES Performed By: #### 1 0165, 496 #### [facility] [address], [address] [place] [address] [employer] Ordnanceman: Scott Nichols MD Calcium [Mass/Vol] 9.6 mg/dL Normal 8.6-10.4 [facility] Comment on above: Order Comment: FASTI NG:YES FASTING: YES Performed By: #### 1 0165, 496 #### [facility] [place] [address] [employer] Ordnanceman: Scott Nichols MD Chloride [Moles/Vol] 104 mmol/L Normal 98-110 [facility] Comment on above: Order Comment: FASTI NG:YES FASTING: YES Performed By: #### 1 0165, 496 #### [facility] [place] [address] [employer] Ordnanceman: Scott Nichols MD CO2 [Moles/Vol] 31 mmol/L Normal 20-32 [facility] Comment on above: Order Comment: FASTI NG:YES FASTING: YES Performed By: #### 1 0165, 496 #### [facility] [place] [address] [employer] Ordnanceman: Scott Nichols MD Creatinine [Mass/Vol] 0.64 mg/dL Normal 0.60-0.93 [facility] Comment on above: Order Comment: FASTI NG:YES FASTING: YES Result Comment: For patients >49 years of age, the reference limit for Creatinine is approximately 13% higher for people identified as -Mauritian. Performed By: #### 1 0165, 496 #### [facility] [address], [address] [place] [address] [employer] Ordnanceman: Scott Nichols MD eGFR NON-AFR. GREEK 90 mL/min/1.73m2 Normal > OR = 60 [facility] Comment on above: Order Comment: FASTI NG:YES FASTING: YES Performed By: #### 1 0165, 496 #### [facility] [address], [address] [place] [address] [employer] Ordnanceman: Scott Nichols MD GFR/1.73 sq M.predicted among blacks MDRD (S/P/Bld) [Vol rate/Area] 105 mL/min/{1.73_m2} Normal > OR = 60 [facility] Comment on above: Order Comment: FASTI NG:YES FASTING: YES Performed By: #### 1 0165, 496 #### [facility] [address], [address] [place] [address] [employer] Ordnanceman: Scott Nichols MD Glucose [Mass/Vol] 136 mg/dL High 65-99 [facility] Comment on above: Order Comment: FASTI NG:YES FASTING: YES Result Comment: Fasting reference interval For someone without known diabetes, a glucose value >125 mg/dL indicates that they may have diabetes and this should be confirmed with a follow-up test. Performed By: #### 1 0165, 496 #### [facility] [address], [address] [place] [address] [employer] Ordnanceman: Scott Nichols MD Potassium [Moles/Vol] 4.3 mmol/L Normal 3.5-5.3 [facility] Comment on above: Order Comment: FASTI NG:YES FASTING: YES Performed By: #### 1 0165, 496 #### [facility] [address], [address] [place] [address] [employer] Ordnanceman: Scott Nichols MD Sodium [Moles/Vol] 141 mmol/L Normal 135-146 [facility] Comment on above: Order Comment: FASTI NG:YES FASTING: YES Performed By: #### 1 0165, 496 #### [facility] [address], [address] [place] [address] [employer] Crew Ordnanceman: Scott Nichols MD Urea nitrogen [Mass/Vol] 9 mg/dL Normal 7-25 [facility] Comment on above: Order Comment: FASTI NG:YES FASTING: YES Performed By: #### 1 0165, 496 #### [facility] [address] [place] [address] Rd, [address] [place] [id number] [employer] Crew Ordnanceman: Scott Nichols MD HEMOGLOBIN A1con 11-27-2021 HEMOGLOBIN [...] #### 1 0165, 496 #### [facility] [address], [address] [place] [address] [employer] Ordnanceman: Scott Nichols MD URINALYSISOrdered By: Aggie Giron [...] AM) Normal Negative [facility] UA Auto SS Dupo.plasma/Lithi um.RBC (Bld) [Mass ratio] 0-3 /HPF Normal 0-3/HPF [facility] UA Auto SS Nitrite Ql (U) Negative (11/26/21 10:54 AM) Normal Negative [facility] UA Auto SS pH (U) 6.5 *NA* (11/26/21 10:54 AM) Invalid Interpretation Code 5.0 - 9.0 [facility] UA Auto SS Protein (U) [Mass/Vol] Negative (11/26/21 10:54 AM) Normal Negative [facility] UA Auto SS Specific gravity (U) [Rel density] <=1.005 *NA* (11/26/21 10:54 AM) Invalid Interpretation Code 1.005 - 1.030 [facility] UA Auto SS UA Spec Desc Clean Catch (11/26/21 10:54 AM) Normal [facility] UA Auto SS Urobilinogen Qn (U) [id number] {Tyrell'U}/dL Normal 0.0 - 1.0 EU/dL [facility] UA Auto SS WBC Auto Ql (U) Negative (11/26/21 10:54 AM) Normal Negative [facility] UA Auto SS WBC LM.HPF (Urine sed) [#/Area] 0-5 /HPF Normal 0-5/HPF [facility] UA Auto SS CT ABD/PELVIS WO CONon [...] Date: 2021-11-24 01:04 Normal [facility] CBC AUTO DIFFon 11-12-2021 BASO # 0.1 103/ul Normal 0.0-0.1 [facility] Comment on above: Performed By: #### C BC ####[facility] [address]ky[address] [place] [phone]. Silvino Clifton Basophils/100 WBC (Bld) 0.6 % Normal 0.2-2.0 [facility] Comment on above: Performed By: #### C BC ####[facility] [address]qfaur[address] [place] [phone]. Silvino Clifton EO # 0.1 103/ul Normal 0.0-0.7 [facility] Comment on above: Performed By: #### C BC ####[facility] Zpws[address]vrd[address] [place] [phone]. Silvino Clifton Eosinophils/100 WBC (Bld) 1.3 % Normal 0.9-7.0 [facility] Comment on above: Performed By: #### C BC ####[facility] Antijurn[address] [place], [place] [address]Dr. Silvino Clifton Erythrocyte distribution width (RBC) [Ratio] 11.9 % Normal 11.0-15.0 [facility] Comment on above: Performed By: #### C BC ####[facility] [address] [place], [place] [id number]. Silvino Clifton Hematocrit (Bld) [Volume fraction] 37.6 % Normal 36.0-48.0 [facility] Comment on above: Performed By: #### C BC ####[facility] [address] [place], [place] [id number]. Silvino Clifton Hemoglobin (Bld) [Mass/Vol] 13.0 g/dL Normal 12.0-16.0 [facility] Comment on above: Performed By: #### C BC ####[facility] [address]peq[address] [place] [phone]. Silvino Clifton IG # 0.04 10e3/ul Critically high 0.00-0.03 [facility] Comment on above: Performed By: #### C BC ####[facility] Biyiwpj[address] [place], [place] [address]Dr. Silvino Clifton IG % 0.5 % Normal 0.0-0.5 [facility] Comment on above: Performed By: #### C BC ####[facility] Isbpfhborv[address] [place] [phone]. Silvino Etienne LYMPH # 1.5 103/ul Normal 1.2-3.8 [facility] Comment on above: Performed By: #### C BC ####[facility] Qlsehdnnao[address] [place] [phone]. Silvino Clifton Lymphocytes/100 WBC (Bld) 18.9 % Critically low 20.5-60.0 [facility] Comment on above: Performed By: #### C BC ####[facility] Rcofbunubt[address] [place] [phone]. Silvino Clifton MANUAL DIFF REQ NO Normal [facility] Comment on above: Performed By: #### C BC ####[facility] Lcozyxdluf67[address] [place] [phone]. Silvino Clifton MCH (RBC) [Entitic mass] 29.7 pg Normal 26.7-34.0 [facility] Comment on above: Performed By: #### C BC ####[facility] Yexctumxgp86[address] [place] [phone]. Suzyoriana Clifton MCHC (RBC) [Mass/Vol] 34.6 g/dL Normal 29.9-35.2 [facility] Comment on above: Performed By: #### C BC ####[facility] S[address]wh[address]qgt[address] [place] [phone]. Silvino Clifton MCV (RBC) [Entitic vol] 85.8 fL Normal 81.0-99.0 [facility] Comment on above: Performed By: #### C BC ####[facility] S[address]ovtgcmxq[address] [place] [phone]. Silvino Clifton MONO # 0.5 103/ul Normal 0.3-0.8 [facility] Comment on above: Performed By: #### C BC ####[facility] Ettzadrajd[address] [place] [phone]. Silvino Clifton Monocytes/100 WBC (Bld) 6.1 % Normal 1.7-12.0 [facility] Comment on above: Performed By: #### C BC ####[facility] Nrbaiumadd79[address] [place] [phone]. Silvino Clifton NEUT # 5.8 103/ul Normal 1.4-6.5 [facility] Comment on above: Performed By: #### C BC ####[facility] Vqepfelsdk[address] [place] [phone]. Silvino Clifton Neutrophils/100 WBC (Bld) 72.6 % Normal 43.0-75.0 [facility] Comment on above: Performed By: #### C BC ####[facility] Szzpljgshl[address] [place] [phone]. Silvino Clifton Platelet mean volume (Bld) [Entitic vol] 10.7 fL Normal 9.5-13.5 [facility] Comment on above: Performed By: #### C BC ####[facility] Eicrwuzfws[address] [place] [phone]. Silvino Clifton PLT 182 103/ul Normal 150-450 [facility] Comment on above: Performed By: #### C BC ####[facility] Edivnddmfw[address] [place] [phone]. Silvino Clifton RBC 4.38 106/ul Normal 4.20-5.40 [facility] Comment on above: Performed By: #### C BC ####[facility] Daxwurorgd[address] [place] [phone]. Silvino Clifton WBC 8.0 103/ul Normal 4.0-11.0 [facility] Comment on above: Performed By: #### C BC ####[facility] Zgnvdytjhe4[address] [place] [phone]. Silvino Clifton CT HEAD WO CONon 11-12-2021 [...] Date: 2021-11-12 05:04 Normal [facility] ER URINE PROFILEon 2 Bilirubin Ql (U) Negative Normal NEGATIVE [facility] Comment on above: Performed By: #### U MICRO, ERUR #### [facility] Laboratory [address] [place] [address] Dr. Silvino Clifton Clarity (U) CLEAR Normal CLEAR [facility] Comment on above: Performed By: #### U MICRO, ERUR #### [facility] Laboratory [address] [place] [address] Dr. Silvino Clifton Color (U) LT. YELLOW Normal YELLOW [facility] Comment on above: Performed By: #### U MICRO, ERUR #### [facility] Laboratory [address] [place] [address] Dr. Silvino Clifton ERUAHD A micrscopic examina tion will be performed if indicated. Normal [facility] Comment on above: Performed By: #### U MICRO, ERUR #### [facility] Laboratory [address] [place] [address] Dr. Silvino Clifton Glucose Ql (U) Negative Normal NEGATIVE [facility] Comment on above: Performed By: #### U MICRO, ERUR #### [facility] Laboratory [address] [address] [address] Silvino Clifton Hemoglobin Ql (U) SMALL Abnormal NEGATIVE [facility] Comment on above: Performed By: #### U MICRO, ERUR #### [facility] Laboratory [address] [place] [address] Dr. Silvino Clifton Ketones Ql (U) Negative Normal NEGATIVE [facility] Comment on above: Performed By: #### U MICRO, ERUR #### [facility] Laboratory [address] [place] [address] Dr. Silvino Clifton LEUKOCYTES Negative Normal NEGATIVE [facility] Comment on above: Performed By: #### U MICRO, ERUR #### [facility] Laboratory [address] [address] [address] Silvino Clifton Nitrite Ql (U) Negative Normal NEGATIVE [facility] Comment on above: Performed By: #### U MICRO, ERUR #### [facility] Laboratory [address] [address] [address] Silvino Clifton pH (U) 7.0 [pH] Normal 5-9 [facility] Comment on above: Performed By: #### U MICRO, ERUR #### [facility] Laboratory [address] [address] [address] Silvino Clifton SPEC GRAVITY <=1.005 Abnormal 1.005-<=1.0 25 [facility] Comment on above: Performed By: #### U MICRO, ERUR #### [facility] Laboratory [address] [address] [address] Silvino Clifton UA PROTEIN Negative Normal NEGATIVE/ TRACE [facility] Comment on above: Performed By: #### U MICRO, ERUR #### [facility] Laboratory [address] [address] [address] Silvino Clifton UR MICRO IND INDICATED Normal [facility] Comment on above: Performed By: #### U MICRO, ERUR #### [facility] Laboratory [address] [address] [address] Silvino Clifton Urobilinogen Qn (U) 0.2 {Tyrell'U}/dL Normal 0.2 - 1. 0 [facility] Comment on above: Performed By: #### U MICRO, ERUR #### [facility] Laboratory [address] [address] [address] Silvino Clifton PROF 14(COMP METB)on 022 Albumin [Mass/Vol] 4.2 g/dL Normal 3.4-5.0 [facility] Comment on above: Performed By: #### C MP, HSTROPN ####[facility] [address]qu[address] [place] [address]Dr. Silvino Clifton Albumin/Globulin [Mass ratio] 1.2 {ratio} Normal [facility] Comment on above: Performed By: #### C MAGGIE, HSTROPN ####[facility] [address]pkhvn[address] [place] [address]Dr. Silvino Clifton ALP [Catalytic activity/Vol] 65 U/L Normal 46-116 [facility] Comment on above: Performed By: #### C MAGGIE, HSTROPN ####[facility] [address]fruiawfs[address] [place] [address]Dr. Silvino Etienne ALT [Catalytic activity/Vol] 21 U/L Normal 14-59 [facility] Comment on above: Performed By: #### C MAGGIE, HSTROPN ####[facility] [address]oggqm[address] [place] [address]Dr. Silvino Clifton Anion gap [Moles/Vol] 12.5 mmol/L Normal [facility] Comment on above: Performed By: #### C MAGGIE, HSTROPN ####[facility] Bl[address]te[address] [place], [place] [address]Dr. Silvino Clifton AST [Catalytic activity/Vol] 17 U/L Normal 15-37 [facility] Comment on above: Performed By: #### C MAGGIE, HSTROPN ####[facility] R[address] [place], [place] [address]Dr. Suzyoriana Clifton Bilirubin [Mass/Vol] 0.5 mg/dL Normal 0.2-1.0 [facility] Comment on above: Performed By: #### C MAGGIE, HSTROPN ####[facility] Y[address]qdsz[address] [place], [place] [address]Dr. Silvino Etienne Calcium [Mass/Vol] 9.0 mg/dL Normal 8.5-10.1 [facility] Comment on above: Performed By: #### C MAGGIE, HSTROPN ####[facility] [address]sewqwlq[address] [place], [place] [address]Dr. Suzyoriana Clifton Chloride [Moles/Vol] 100 mmol/L Normal 98-107 [facility] Comment on above: Performed By: #### C MAGGIE, HSTROPN ####[facility] Z[address]siqmpoy[address] [place], [place] [address]Dr. Silvino Clifton CO2 [Moles/Vol] 26.8 mmol/L Normal 21.0-32.0 [facility] Comment on above: Performed By: #### C MAGGIE, HSTROPN ####[facility] [address] [place] [address]Dr. Silvino Clifton Creatinine [Mass/Vol] 0.71 mg/dL Normal 0.55-1.02 [facility] Comment on above: Performed By: #### C MAGGIE, HSTROPN ####[facility] [address]iqtrnxaxr[address] [place] [phone]. Silvino Clifton EGFR-AF GREEK >60 Normal >=60 [facility] Comment on above: Performed By: #### C MAGGIE, HSTROPN ####[facility] [address]hlwsvvk[address] [place] [address]Dr. Silvino Clifton EGFR-NON AF GREEK >60 Normal >=60 [facility] Comment on above: Performed By: #### C MAGGIE, HSTROPN ####[facility] [address]sqcxbvey[address] [place] [address]Dr. Silvino Clifton Globulin (S) [Mass/Vol] 3.4 g/dL Normal [facility] Comment on above: Performed By: #### C MAGGIE, HSTROPN ####[facility] [address]roextbxmn[address] [place] [address]Dr. Silvino Clifton Glucose [Mass/Vol] 185 mg/dL Critically high 74-106 [facility] Comment on above: Performed By: #### C MAGGIE, HSTROPN ####[facility] [address]klly[address] [place] [address]Dr. Silvino Clifton Potassium [Moles/Vol] 3.3 mmol/L Critically low 3.5-5.1 [facility] Comment on above: Performed By: #### C MAGGIE, HSTROPN ####[facility] [address]ns[address] [place] [address]Dr. Suzyoriana Clifton Protein [Mass/Vol] 7.6 g/dL Normal 6.4-8.2 [facility] Comment on above: Performed By: #### C MP, HSTROPN ####[facility] F[address]rsdamnx[address] [place] [phone]. Silvino Clifton Sodium [Moles/Vol] 136 mmol/L Normal 136-145 [facility] Comment on above: Performed By: #### C MP, HSTROPN ####[facility] [address]fsvkbwr[address] [place] [address]Dr. Silvino Clifton Urea nitrogen [Mass/Vol] 10.0 mg/dL Normal 7.0-18.0 [facility] Comment on above: Performed By: #### C MP, HSTROPN ####[facility] [address]pe[address]pyhm[address] [place] [address]Dr. Silvino Clifton Urea nitrogen/Creatinine [Mass ratio] 14.1 mg/mg Normal [facility] Comment on above: Performed By: #### C MP, HSTROPN ####[facility] [address]ffr[address] [place] [address]Dr. Silvino Clifton TROPONIN, HIGH SENSITIVITYon 11-12-2021 HSTROP 25.0 pg/mL Normal 4.0-51.3 [facility] Comment on above: Result Comment: CUT- OFF POINTS HAVE BEEN ESTABLISHED BASED ON THE FOURTH UNIVERSAL DEFINITIONS OF MYOCARDIAL INFARCTION. THE UPPER REFERENCE LIMIT (URL) OF TROPONIN, DEFINED THE 99TH PERCENTILE OF cTnI DISTRIBUTION IN A REFERENCE POPULATION, HAS BEEN CONFIRMED THE DECISION THRESHOLD FOR SC DIAGNOSIS. Performed By: #### C MAGGIE, HSTROPN #### [facility] Laboratory [address] [place] [address] Dr. Silvino Clifton URINE MICROSCOPIC ONLYon BACTERIA NONE SEEN Normal NONE SEEN [facility] Comment on above: Performed By: #### U MICRO, ERUR #### [facility] Laboratory [address] [address] [address] Silvino Clifton Bacteria identified Cx Nom (U) NOT INDICATED Normal [facility] Comment on above: Performed By: #### U MICRO, ERUR #### [facility] Laboratory [address] [place] [address] Dr. Silvino Clifton CAST NONE SEEN Normal NONE SEEN [facility] Comment on above: Performed By: #### U MICRO, ERUR #### [facility] Laboratory [address] [address] [address] Sivlino Clifton Crystals LM Nom (Urine sed) NONE SEEN Normal NONE SEEN [facility] Comment on above: Performed By: #### U MICRO, ERUR #### [facility] Laboratory [address] [place] [address] Dr. Silvino Clifton Epithelial cells LM Ql (Urine sed) RARE Normal NONE SEEN /RARE [facility] Comment on above: Performed By: #### U MICRO, ERUR #### [facility] Laboratory [address] [place] [address] Dr. Silvino Clifton MUCOUS NONE SEEN Normal NONE SEEN [facility] Comment on above: Performed By: #### U MICRO, ERUR #### [facility] Laboratory [address] [place] [address] Dr. Silvino Clifton RBC 2-5 Abnormal 0-2 [facility] Comment on above: Performed By: #### U MICRO, ERUR #### [facility] Laboratory [address] [place] [address] Dr. Silvino Clifton WBC NONE SEEN Normal NONE SEEN [facility] Comment on above: Performed By: #### U MICRO, ERUR #### [facility] Laboratory [address] [place] [address] Dr. Silvino Clifton CBC (INCLUDES DIFF/PLT)on Basophils (Bld) [#/Vol] 0.041 10*3/uL Normal 0-200 [facility] Comment on above: Performed By: #### 6 399, 622, 927 #### [facility] [address], [address] [place], [place] [id number] [employer]: Scott Nichols MD Basophils/100 WBC (Bld) 0.7 % Normal [facility] Comment on above: Performed By: #### 6 399, 622, 927 #### [facility] [address], [address] [place], [place] [id number] [employer]: Scott Nichols MD Eosinophils (Bld) [#/Vol] 0.077 10*3/uL Normal 15-500 [facility] Comment on above: Performed By: #### 6 399, 622, 927 #### [facility] of [place] [address] [employer]: Scott Nichols MD Eosinophils/100 WBC (Bld) 1.3 % Normal [facility] Comment on above: Performed By: #### 6 399, 622, 927 #### [facility] [place] [address] [employer]: Scott Nichols MD Erythrocyte distribution width (RBC) [Ratio] 12.3 % Normal 11.0-15.0 [facility] Comment on above: Performed By: #### 6 399, 622, 927 #### [facility] [place] [address] [employer]: Scott Nichols MD Hematocrit (Bld) [Volume fraction] 40.2 % Normal 35.0-45.0 [facility] Comment on above: Performed By: #### 6 399, 622, 927 #### [facility] [place] [address] [employer]: Scott Nichols MD Hemoglobin (Bld) [Mass/Vol] 13.8 g/dL Normal 11.7-15.5 [facility] Comment on above: Performed By: #### 6 399, 622, 927 #### [facility] [place] [address] [employer]: Scott Nichols MD Lymphocytes (Bld) [#/Vol] 1.682 10*3/uL Normal 850-3900 [facility] Comment on above: Performed By: #### 6 399, 622, 927 #### [facility] [place] [address] [employer]: Scott Nichols MD Lymphocytes/100 WBC (Bld) 28.5 % Normal [facility] Comment on above: Performed By: #### 6 399, 622, 927 #### [facility] of [place] [address] [employer]: Scott Nichols MD MCH (RBC) [Entitic mass] 29.9 pg Normal 27.0-33.0 [facility] Comment on above: Performed By: #### 6 399, 622, 927 #### [facility] of [place] [address] [employer]: Scott Nichols MD MCHC (RBC) [Mass/Vol] 34.3 g/dL Normal 32.0-36.0 [facility] Comment on above: Performed By: #### 6 399, 622, 927 #### [facility] of [place] [address] [employer]: Scott Nichols MD MCV (RBC) [Entitic vol] 87.0 fL Normal 80.0-100.0 [facility] Comment on above: Performed By: #### 6 399, 622, 927 #### [facility] of [place] [address] [employer]: Scott Nichols MD Monocytes (Bld) [#/Vol] 0.407 10*3/uL Normal 200-950 [facility] Comment on above: Performed By: #### 6 399, 622, 927 #### [facility] of [place] [address] [employer]: Scott Nichols MD Monocytes/100 WBC (Bld) 6.9 % Normal [facility] Comment on above: Performed By: #### 6 399, 622, 927 #### [facility] of [place] [address] [employer]: Scott Nichols MD Neutrophils (Bld) [#/Vol] 3.693 10*3/uL Normal 4421-7313 [facility] Comment on above: Performed By: #### 6 399, 622, 927 #### [facility] of [place] [address] [employer]: Scott Nichols MD Neutrophils/100 WBC (Bld) 62.6 % Normal [facility] Comment on above: Performed By: #### 6 399, 622, 927 #### [facility] [place] [address] [employer]: Scott Nichols MD Platelet mean volume (Bld) [Entitic vol] 11.9 fL Normal 7.5-12.5 [facility] Comment on above: Performed By: #### 6 399, 622, 927 #### [facility] of [place] [address] [employer]: Scott Nichols MD Platelets (Bld) [#/Vol] 195 10*3/uL Normal 140-400 [facility] Comment on above: Performed By: #### 6 399, 622, 927 #### [facility] of [place] [address] [employer]: Scott Nichols MD RBC (Bld) [#/Vol] 4.62 10*6/uL Normal 3.80-5.10 [facility] Comment on above: Performed By: #### 6 399, 622, 927 #### [facility] of [place] [address] [employer]: Scott Nichols MD WBC (Bld) [#/Vol] 5.9 10*3/uL Normal 3.8-10.8 [facility] Comment on above: Performed By: #### 6 399, 622, 927 #### [facility] of [place] [address] [employer]: Scott Nichols MD MAGNESIUMon 09-10-2021 Magnesium [Mass/Vol] 1.7 mg/dL Normal 1.5-2.5 [facility] Comment on above: Order Comment: FASTI NG:UNKNOWN FASTING: UNKNOWN Performed By: #### 6 399, 622, 927 #### [facility] of [place] [address] [employer]: Scott Nichols MD VITAMIN B12on 09-10-2021 Cobalamin [...] 6 399, 622, 927 #### [facility] [address], [address] [place] [address] [employer]: Scott Nichols MD ALBUMIN, RANDOM URINE W/CREA TININEon 07-29-2021 ALBUMIN, URINE 2.6 mg/dL Normal See Note: [facility] Comment on above: Result Comment: Refe rence Range: Reference Range Not established Performed By: #### 1 0231, 7600, 6517 #### [facility] [address], [address] [place] [address] [employer]: Scott Nichols MD ALBUMIN/CREATININE RATIO, RANDOM URINE [...] 1 0231, 7600, 6517 #### [facility] [address], [address] [place] [address] [employer]: Scott Nichols MD Creatinine (U) [Mass/Vol] 53 mg/dL Normal 20-275 [facility] Comment on above: Performed By: #### 1 0231, 7600, 6517 #### [facility] [address], [address] [place] [address] [employer]: Scott Nichols MD COMPREHENSIVE METABOLIC PANE Navid 07-29-2021 Albumin [Mass/Vol] 4.6 g/dL Normal 3.6-5.1 [facility] Comment on above: Performed By: #### 1 0231, 0, 6517 #### [facility] of [address], [address] [place] [address] [employer]: Scott Nichols MD Albumin/Globulin [Mass ratio] 1.6 {ratio} Normal 1.0-2.5 [facility] Comment on above: Performed By: #### 1 0231, 0, 6517 #### [facility] of [address], [address] [place] [address] [employer]: Scott Nichols MD ALP [Catalytic activity/Vol] 55 U/L Normal 37-153 [facility] Comment on above: Performed By: #### 1 023, 7599, 6517 #### [facility] of [place] [address] [employer]: Scott Nichols MD ALT [Catalytic activity/Vol] 11 U/L Normal 6-29 [facility] Comment on above: Result Comment: NO C OLLECTION DATE RECEIVED. WE HAVE USED THE DATE THE SPECIMEN WAS RECEIVED BY THIS LABORATORY THE COLLECTION DATE. IF THIS IS INCORRECT, PLEASE CONTACT CLIENT SERVICES. PHONE NUMBER: [phone] Performed By: #### 1 230, 7599, 6517 #### [facility] [place] [address] [employer]: Scott Nichols MD AST [Catalytic activity/Vol] 11 U/L Normal 10-35 [facility] Comment on above: Performed By: #### 1 023, 7599, 6517 #### [facility] [place] [address] [employer]: Scott Nichols MD Bilirubin [Mass/Vol] 0.6 mg/dL Normal 0.2-1.2 [facility]ues [facility] Comment on above: Performed By: #### 1 023, 7599, 6517 #### [facility] of [address] [place] [address] [employer]: Scott Nichols MD BUN/CREATININE RATIO NOT APPLICABLE Normal 6-22 [facility] Comment on above: Performed By: #### 1 0231, 7599, 6517 #### [facility] of [address], [address] [place] [address] [employer]: Scott Nichols MD Calcium [Mass/Vol] 9.5 mg/dL Normal 8.6-10.4 [facility] Comment on above: Performed By: #### 1 023, 7599, 6517 #### [facility] of [address], [address] [place] [address] [employer]: Scott Nichols MD Chloride [Moles/Vol] 105 mmol/L Normal 98-110 [facility] Comment on above: Performed By: #### 1 230, 7599, 6517 #### [facility] of [address], [address] [place] [address] [employer]: Scott Nichols MD CO2 [Moles/Vol] 30 mmol/L Normal 20-32 [facility] Comment on above: Performed By: #### 1 230, 7599, 6517 #### [facility] [address], [address] [place] [address] [employer]: Scott Nichols MD Creatinine [Mass/Vol] 0.62 mg/dL Normal 0.60-0.93 [facility] Comment on above: Result Comment: For patients >49 years of age, the reference limit for Creatinine is approximately 13% higher for people identified as -Mauritian. Performed By: #### 1 230, 7599, 6517 #### [facility] of [address], [address] [place] [address] [employer]: Scott Nichols MD eGFR NON-AFR. GREEK 91 mL/min/1.73m2 Normal > OR = 60 [facility] Comment on above: Performed By: #### 1 023, 7599, 6517 #### [facility] [place] [address] [place] [address] [employer]: Scott Nichols MD GFR/1.73 sq M.predicted among blacks MDRD (S/P/Bld) [Vol rate/Area] 106 mL/min/{1.73_m2} Normal > OR = 60 [facility] Comment on above: Performed By: #### 1 230, 7599, 6517 #### [facility] [place] [address] [employer]: Scott Nichols MD Globulin (S) [Mass/Vol] 2.8 g/dL Normal 1.9-3.7 [facility] Comment on above: Performed By: #### 1 230, 7599, 17 #### [facility] [place] [address] [employer]: Scott Nichols MD Glucose [Mass/Vol] 124 mg/dL High 65-99 [facility] Comment on above: Result Comment: Fasting reference interval For someone without known diabetes, a glucose value between 100 and 125 mg/dL is consistent with prediabetes and should be confirmed with a follow-up test. Performed By: #### 1 230, 7599, 6517 #### [facility] [place] [address] [employer]: Scott Nichols MD Potassium [Moles/Vol] 3.7 mmol/L Normal 3.5-5.3 [facility] Comment on above: Performed By: #### 1 230, 7599, 17 #### [facility] [place] [address] [employer]: Scott Nichols MD Protein [Mass/Vol] 7.4 g/dL Normal 6.1-8.1 [facility] Comment on above: Performed By: #### 1 230, 7599, 6517 #### [facility] [place] [address] [employer]: Scott Nichols MD Sodium [Moles/Vol] 142 mmol/L Normal 135-146 [facility] Comment on above: Performed By: #### 1 230, 7599, 6517 #### [facility] [address], [address] [place] [address] [employer]: Scott Nichols MD Urea nitrogen [Mass/Vol] 8 mg/dL Normal 7-25 [facility] Comment on above: Performed By: #### 1 023, 7599, 6517 #### [facility] [address], [address] [place] [address] [employer]: Scott Nichols MD LIPID PANEL, [facility] 03-0 Cholesterol [Mass/Vol] 156 mg/dL Normal <200 [facility] Comment on above: Performed By: #### 1 023, 7599, 6517 #### [facility] [address], [address] [place] [address] [employer]: Scott Nichols MD Cholesterol in HDL [Mass/Vol] 67 mg/dL Normal > OR = 50 [facility] Comment on above: Performed By: #### 1 230, 7599, 6517 #### [facility] [address], [address] [place] [address] [employer]: Scott Nichols MD Cholesterol in LDL [Mass/Vol] 72 mg/dL Normal [facility] Comment on above: Result Comment: Refe rence range: <100 Desirable range <100 mg/dL for primary prevention; <70 mg/dL for patients with CHD or diabetic patients with > or = 2 CHD risk factors. LDL-C is now calculated using the Placido-Lisette calculation, which is a validated novel method providing better accuracy than the Friedewald equation in the estimation of LDL-C. Placido VENTURA et al. MACKENZIE. 2013;310(19): 0299-2781 (http://education.Sanitors.Lumatic/faq/IJR486) Performed By: #### 1 230, 7599, 6517 #### [facility] [address], [address] [place] [address] [employer]: Scott Nichols MD Cholesterol.total/Ch olesterol in HDL [Mass ratio] 2.3 {ratio} Normal <5.0 [facility] Comment on above: Performed By: #### 1 230, 7599, 6517 #### [facility] [place] [address] [employer]: Scott Nichols MD NON HDL CHOLESTEROL 89 mg/dL (calc) Normal <130 [facility] Comment on above: Result Comment: For patients with diabetes plus 1 major ASCVD risk factor, treating to a non-HDL-C goal of <100 mg/dL (LDL-C of <70 mg/dL) is considered a therapeutic option. Performed By: #### 1 023, 7599, 6517 #### [facility] [place] [address] [employer]: Scott Nichols MD Triglyceride [Mass/Vol] 85 mg/dL Normal <150 [facility] Comment on above: Performed By: #### 1 230, 7599, 6517 #### [facility] [place] [address] [employer]: Scott Nichols MD REFLEXIVE URINE CULTUREon REFLEXIVE URINE CULTURE Normal [facility] Comment on above: Result Comment: NO C ULTURE INDICATED Performed By: #### 3 020 #### [facility] [place] [address] [employer]: Scott Nichols MD URINALYSIS, COMPLETE W/REFLE X TO CULTUREon 02-06-2021 Appearance (U) CLEAR Normal CLEAR [facility] Comment on above: Performed By: #### 3 020 #### [facility] of [place] [address] [employer]: Scott Nichols MD BACTERIA NONE SEEN Normal NONE SEEN [facility] Comment on above: Performed By: #### 3 020 #### [facility] [place] [address] [employer]: Scott Nichols MD Bilirubin Ql (U) Negative Normal NEGATIVE [facility] Comment on above: Performed By: #### 3 020 #### [facility] of [place] [address] [employer]: Scott Nichols MD Color (U) YELLOW Normal YELLOW [facility] Comment on above: Performed By: #### 3 020 #### [facility] of [place] [address] [employer]: Scott Nichols MD Glucose Ql (U) Negative Normal NEGATIVE [facility] Comment on above: Performed By: #### 3 020 #### [facility] of [place] [address] [employer]: Scott Nichols MD HYALINE CAST NONE SEEN Normal NONE SEEN [facility] Comment on above: Performed By: #### 3 020 #### [facility] of [place] [address] [employer]: Scott Nichols MD Ketones Ql (U) Negative Normal NEGATIVE [facility] Comment on above: Performed By: #### 3 020 #### [facility] of [place] [address] [employer]: Scott Nichols MD Leukocyte esterase Test strip Ql (U) Negative Normal NEGATIVE [facility] Comment on above: Performed By: #### 3 020 #### [facility] of [place] [address] [employer]: Scott Nichols MD Nitrite Ql (U) Negative Normal NEGATIVE [facility] Comment on above: Performed By: #### 3 020 #### [facility] of [place] [address] [employer]: Scott Nichols MD OCCULT BLOOD TRACE Abnormal NEGATIVE [facility] Comment on above: Performed By: #### 3 020 #### [facility] of [place] [address] [employer]: Scott Nichols MD pH (U) 6.5 [pH] Normal 5.0-8.0 [facility] Comment on above: Performed By: #### 3 020 #### [facility] of [address], [address] [place] [address] [employer]: Scott Nichols MD Protein Ql (U) Negative Normal NEGATIVE [facility] Comment on above: Performed By: #### 3 020 #### [facility] of [address], [address] [place] [address] [employer]: Scott Nichols MD RBC NONE SEEN Normal < OR = 2 [facility] Comment on above: Performed By: #### 3 020 #### [facility] of [address], [address] [place] [address] [employer]: Scott Nichols MD Specific gravity (U) [Rel density] 1.008 Normal 1.001-1.035 [facility] Comment on above: Performed By: #### 3 020 #### [facility] of [place] [address] [employer]: Scott Nichols MD SQUAMOUS EPITHELIAL CELLS NONE SEEN Normal < OR = 5 [facility] Comment on above: Performed By: #### 3 020 #### [facility] of [place] [address] [employer]: Scott Nichols MD WBC NONE SEEN Normal < OR = 5 [facility] Comment on above: Performed By: #### 3 020 #### [facility] of [place] [address] [employer]: Scott Nichols MD BASIC METABOLIC PANEL 12-23 BUN/CREATININE RATIO NOT APPLICABLE Normal 6-22 [facility] Comment on above: Order Comment: FASTI NG:YESFASTING: YES Performed By: #### 3 020 #### [facility] of [place] [address] [employer]: Scott Nichols MD Calcium [Mass/Vol] 9.6 mg/dL Normal 8.6-10.4 [facility] Comment on above: Order Comment: FASTI NG:YESFASTING: YES Performed By: #### 3 020 #### [facility] of [address] [place] [address] [employer]: Scott Nichols MD Chloride [Moles/Vol] 106 mmol/L Normal 98-110 [facility] Comment on above: Order Comment: FASTI NG:YESFASTING: YES Performed By: #### 3 020 #### [facility] [address], [address] [place] [address] [employer]: Scott Nichols MD CO2 [Moles/Vol] 29 mmol/L Normal 20-32 [facility] Comment on above: Order Comment: FASTI NG:YESFASTING: YES Performed By: #### 3 020 #### [facility] [place] [address] [employer]: Scott Nichols MD Creatinine [Mass/Vol] 0.69 mg/dL Normal 0.50-0.99 [facility] Comment on above: Order Comment: FASTI NG:YESFASTING: YES Result Comment: For patients >49 years of age, the reference limit for Creatinine is approximately 13% higher for people identified as -Mauritian. Performed By: #### 3 020 #### [facility] [place] [address] [employer]: Scott Nichols MD eGFR NON-AFR. GREEK 89 mL/min/1.73m2 Normal > OR = 60 [facility] Comment on above: Order Comment: FASTI NG:YESFASTING: YES Performed By: #### 3 020 #### [facility] [place] [address] [employer]: Scott Nichols MD GFR/1.73 sq M.predicted among blacks MDRD (S/P/Bld) [Vol rate/Area] 103 mL/min/{1.73_m2} Normal > OR = 60 [facility] Comment on above: Order Comment: FASTI NG:YESFASTING: YES Performed By: #### 3 020 #### [facility] [address], [address] [place] [address] [employer]: Scott Nichols MD Glucose [Mass/Vol] 139 mg/dL High 65-99 [facility] Comment on above: Order Comment: FASTI NG:YESFASTING: YES Result Comment: Fasting reference interval For someone without known diabetes, a glucose value >125 mg/dL indicates that they may have diabetes and this should be confirmed with a follow-up test. Performed By: #### 3 020 #### [facility] [place] [address] [employer]: Scott Nichols MD Potassium [Moles/Vol] 3.9 mmol/L Normal 3.5-5.3 [facility] Comment on above: Order Comment: FASTI NG:YESFASTING: YES Performed By: #### 3 020 #### [facility] [place] [address] [employer]: Scott Nichols MD Sodium [Moles/Vol] 140 mmol/L Normal 135-146 [facility] Comment on above: Order Comment: FASTI NG:YESFASTING: YES Performed By: #### 3 020 #### [facility] [place] [address] [employer]: Scott Nichols MD Urea nitrogen [Mass/Vol] 11 mg/dL Normal 7-25 [facility] Comment on above: Order Comment: FASTI NG:YESFASTING: YES Performed By: #### 3 020 #### [facility] [place] [address] [employer]: Scott Nichols MD Vital Signs Date Time Vital Sign Value Performing Clinician Facility 03-07-2024 09:50-0400 Body height 152.4 cm Laura Bullock MD Work Phone: [facility] 03-07-2024 09:50-0400 Body mass index (BMI) [Ratio] 25.35 kg/m2 Laura Bullock MD Work Phone: [facility] 03-07-2024 09:50-0400 Body weight 58.88 kg Laura Bullock MD Work Phone: [facility] 12-15-2023 08:54-0400 Blood Pressure Location Norma Lue [facility] 12-15-2023 08:54-0400 Body temperature 98.6 [degF] Norma Lue [facility] 12-15-2023 08:54-0400 Diastolic blood pressure 84 mm[Hg] Norma Lue [facility] 12-15-2023 08:54-0400 Heart rate 77 /min Norma Lue [facility] 12-15-2023 08:54-0400 Respiratory rate 16 /min Norma Lue [facility] 12-15-2023 08:54-0400 Systolic blood pressure 135 mm[Hg] Norma Lue [facility] 08-23-2023 15:14-0400 Body height 157.5 cm Joaquin Furlong DO Work Phone: [facility] 08-23-2023 15:14-0400 Body mass index (BMI) [Ratio] 23.58 kg/m2 Joaquin Furlong DO Work Phone: [facility] 08-23-2023 15:14-0400 Body temperature 97.59 [degF] Joaquin Furlong DO Work Phone: [facility] 08-23-2023 15:14-0400 Body weight 58.47 kg Joaquin Furlong DO Work Phone: [facility] 08-23-2023 15:14-0400 Diastolic blood pressure 60 mm[Hg] Joaquin Furlong DO Work Phone: [facility] 08-23-2023 15:14-0400 Heart rate 77 /min Joaquin Furlong DO Work Phone: [employer] 08-23-2023 15:14-0400 Respiratory rate 18 /min Joaquin Furlong DO Work Phone: [facility] [employer] 08-23-2023 15:14-0400 SaO2% (BldA) [Mass fraction] 98 % Joaquin Furlong DO Work Phone: [facility] [employer] 08-23-2023 15:14-0400 Systolic blood pressure 110 mm[Hg] Joaquin Furlong DO Work Phone: [facility] [employer] 07-06-2023 15:49-0500 Body height 157.5 cm Joaquin Furlong DO Work Phone: [facility] [employer] 07-06-2023 15:49-0500 Body mass index (BMI) [Ratio] 24.23 kg/m2 Joaquin Furlong DO Work Phone: [facility] [employer] 07-06-2023 15:49-0500 Body temperature 97.81 [degF] Joaquin Furlong DO Work Phone: [facility] [employer] 07-06-2023 15:49-0500 Body weight 60.1 kg Joaquin Furlong DO Work Phone: [facility] [employer] 07-06-2023 15:49-0500 Diastolic blood pressure 70 mm[Hg] Joaquin Furlong DO Work Phone: [facility] [employer] 07-06-2023 15:49-0500 Heart rate 85 /min Joaquin Furlong DO Work Phone: [facility] [employer] 07-06-2023 15:49-0500 SaO2% (BldA) [Mass fraction] 98 % Joaquin Furlong DO Work Phone: [facility] [employer] 07-06-2023 15:49-0500 Systolic blood pressure 122 mm[Hg] Joaquin Furlong DO Work Phone: [employer] 06-09-2023 09:30-0500 Body height 151.13 cm Gino Carrasquillo Other [employer] Other 06-09-2023 09:30-0500 Body mass index (BMI) [Ratio] 25.62 kg/m2 Gino Carrasquillo Other [employer] Other 06-09-2023 09:30-0500 Body weight 58.51 kg Gino Carrasquillo Other [employer] Other 06-09-2023 09:30-0500 Diastolic blood pressure 76 mm[Hg] Gino Carrasquillo Other [employer] Other 06-09-2023 09:30-0500 Systolic blood pressure 122 mm[Hg] Gino Carrasquillo Other [employer] Other 04-13-2023 13:45-0500 Body height 151.13 cm Gino Carrasquillo Other [employer] Other 04-13-2023 13:45-0500 Body mass index (BMI) [Ratio] 25.7 kg/m2 Gino Carrasquillo Other [employer] Other 04-13-2023 13:45-0500 Body weight 58.7 kg Gino Carrasquillo Other [employer] Other 04-13-2023 13:45-0500 Diastolic blood pressure 70 mm[Hg] Gino Carrasquillo Other [employer] Other 04-13-2023 13:45-0500 SaO2% (BldA) [Mass fraction] 97 % Gino Carrasquillo Other [employer] Other 04-13-2023 13:45-0500 Systolic blood pressure 108 mm[Hg] Gino Carrasquillo Other [employer] Other 02-16-2023 13:30-0400 Body height 151.13 cm Gino Carrasquillo Other [employer] Other 02-16-2023 13:30-0400 Body mass index (BMI) [Ratio] 26.01 kg/m2 Gino Carrasquillo Other [employer] Other 02-16-2023 13:30-0400 Body weight 59.42 kg Gino Carrasquillo Other [employer] Other 02-16-2023 13:30-0400 Diastolic blood pressure 80 mm[Hg] Gino Carrasquillo Other [employer] Other 02-16-2023 13:30-0400 SaO2% (BldA) [Mass fraction] 97 % Gino Carrasquillo Other [employer] Other 02-16-2023 13:30-0400 Systolic blood pressure 122 mm[Hg] Gino Carrasquillo Other [employer] Other 02-04-2023 14:00-0400 Body height 151.13 cm Gino Carrasquillo Other [employer] Other 02-04-2023 14:00-0400 Body mass index (BMI) [Ratio] 26.29 kg/m2 Gino Carrasquillo Other [employer] Other 02-04-2023 14:00-0400 Body weight 60.06 kg Gino Carrasquillo Other [employer] Other 02-04-2023 14:00-0400 Diastolic blood pressure 77 mm[Hg] Gino Carrasquillo Other [employer] Other 02-04-2023 14:00-0400 Systolic blood pressure 146 mm[Hg] Gino Carrasquillo Other [employer] Other 01-28-2023 09:45-0400 Body height 151.13 cm Gino Carrasquillo Other [employer] Other 01-28-2023 09:45-0400 Body mass index (BMI) [Ratio] 26.29 kg/m2 Gino Carrasquillo Other [employer] Other 01-28-2023 09:45-0400 Body weight 60.06 kg Gino Carrasquillo Other [employer] Other 01-28-2023 09:45-0400 Diastolic blood pressure 79 mm[Hg] Gino Carrasquillo Other [employer] Other 01-28-2023 09:45-0400 Systolic blood pressure 126 mm[Hg] Gino Carrasquillo Other [employer] Other 09-08-2022 15:00-0400 Body height 151.13 cm Gino Carrasquillo Other [employer] Other 09-08-2022 15:00-0400 Body mass index (BMI) [Ratio] 26.61 kg/m2 Gino Carrasquillo Other [employer] Other 09-08-2022 15:00-0400 Body weight 60.78 kg Gino Carrasquillo Other [employer] Other 09-08-2022 15:00-0400 Diastolic blood pressure 78 mm[Hg] Gion Carrasquillo Other [employer] Other 09-08-2022 15:00-0400 SaO2% (BldA) [Mass fraction] 97 % Gino Carrasquillo Other [employer] Other 09-08-2022 15:00-0400 Systolic blood pressure 118 mm[Hg] Gino Carrasquillo Other [employer] Other 08-27-2022 14:30-0400 Body height 151.13 cm Gino Carrasquillo Other [employer] Other 08-27-2022 14:30-0400 Body mass index (BMI) [Ratio] 26.41 kg/m2 Gino Carrasquillo Other [employer] Other 08-27-2022 14:30-0400 Body weight 60.33 kg Gino Carrasquillo Other [employer] Other 08-27-2022 14:30-0400 Diastolic blood pressure 74 mm[Hg] Gino Carrasquillo Other [employer] Other 08-27-2022 14:30-0400 SaO2% (BldA) [Mass fraction] 95 % Gino Carrasquillo Other [employer] Other 08-27-2022 14:30-0400 Systolic blood pressure 120 mm[Hg] Gino Carrasquillo Other [employer] Other 08-10-2022 14:30-0400 Body height 151.13 cm Gino Carrasquillo Other [employer] Other 08-10-2022 14:30-0400 Body mass index (BMI) [Ratio] 26.81 kg/m2 Gino Carrasquillo Other [employer] Other 03-20-2023 14:30-0400 Body weight 61.24 kg Gino Carrasquillo Other [employer] Other 08-10-2022 14:30-0400 Diastolic blood pressure 74 mm[Hg] Gino Carrasquillo Other [employer] Other 08-10-2022 14:30-0400 SaO2% (BldA) [Mass fraction] 97 % Gino Carrasquillo Other [employer] Other 08-10-2022 14:30-0400 Systolic blood pressure 126 mm[Hg] Gino Carrasquillo Other [employer] Other 11-26-2021 08:12-0400 Blood Pressure Location Norma Gleze [facility] [employer] 11-26-2021 08:12-0400 Diastolic blood pressure 82 mm[Hg] Norma Lue [facility] [employer] 11-26-2021 08:12-0400 Heart rate 66 /min [facility] 11-26-2021 08:12-0400 Systolic blood pressure 139 mm[Hg] Norma Lue [facility] [employer] Encounters Encounter Date Encounter Type Care Provider Facility Start: 04-05-2024 End: 04-05-2024 ambulatory Norma Pulido Facility:[facility] Start: 04-05-2024 End: 04-05-2024 Patient encounter procedure Norma Pulido [facility] Start: 03-07-2024 End: 03-07-2024 Office outpatient new 30 minutes Laura Bullock MD Work Phone: [facility] Comment on above: Skin lesion (Primary Dx); Neoplasm of uncertain behavior of skin Start: 03-07-2024 End: 03-07-2024 [facility] Start: 02-25-2024 End: 02-25-2024 Orders Only [facility] DO Work Phone: [facility] - [facility] Comment on above: Type 2 diabetes ruma itus without complication, without long- term current use of insulin ([facility]) (Primary Dx) Start: 02-21-2024 End: 02-21-2024 ambulatory [facility] Start: 12-31-2023 End: 12-31-2023 ambulatory [facility] Start: 12-15-2023 End: 12-15-2023 Lab Drop off Norma Pulido [facility] Start: 12-15-2023 End: 12-15-2023 ambulatory Norma Pulido Facility:[facility] Start: 12-15-2023 End: 12-15-2023 Patient encounter procedure Norma Pulido [facility] Start: 11-16-2023 End: 11-16-2023 ambulatory [facility] Start: 11-09-2023 End: 11-09-2023 ambulatory [facility] Start: 10-25-2023 End: 10-25-2023 ambulatory [facility] Start: 10-07-2023 End: 10-07-2023 ambulatory [facility] Start: 09-14-2023 End: 09-14-2023 ambulatory [facility] Start: 08-26-2023 Refill Suki Maria C [facility] Sonu swan [facility] Start: 08-23-2023 End: 08-23-2023 Office outpatient visit 15 minutes Joaquin Devine DO Work Phone: [facility] Comment on above: Type 2 diabetes ruma itus without complication, without long- term current use of insulin ([facility]) (Primary Dx); Hyperlipidemia, unspecified hyperlipidemia type; Acute deep vein thrombosis (DVT) of calf muscle vein of right lower extremity ([facility]); Benign essential hypertension Start: 08-23-2023 End: 08-23-2023 ambulatory [facility] Start: 08-12-2023 Refill Suki Maria C [facility] Sonu salazar [facility] Start: 07-27-2023 Telephone encounter Joaquin kebede DO Work Phone: [facility] Start: 07-07-2023 Orders Only Joaquin chung DO Work Phone: [facility] Start: 07-06-2023 End: 07-07-2023 ambulatory [facility] Start: 07-06-2023 End: 07-06-2023 Office outpatient visit 25 minutes Joaquin Devine DO Work Phone: [facility] Comment on above: 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, without long-term current use of insulin ([facility]) (Primary Dx); Benign essential hypertension; Hyperlipidemia, unspecified hyperlipidemia type; Acute deep vein thrombosis (DVT) of calf muscle vein of right lower extremity ([facility]) Start: 07-06-2023 ambulatory [facility] Start: 06-14-2023 End: 06-14-2023 ambulatory Gino Carrasquillo Other [employer] Other Start: 06-14-2023 Telephone encounter Gino Carrasquillo [facility] Start: 06-10-2023 End: 06-10-2023 ambulatory Gino Carrasquillo Other [employer] Other Start: 06-10-2023 Telephone encounter Gino Carrasquillo [facility] Start: 06-09-2023 End: 06-09-2023 ambulatory Gino Carrasquillo Other [employer] Other Start: 06-09-2023 Office outpatient vi sit 25 minutes Gino Carrasquillo [facility] Start: 06-07-2023 End: 06-07-2023 ambulatory Gino Carrasquillo Other [employer] Other Start: 06-07-2023 Telephone encounter Bridget Cummins CMA [facility] Start: 06-01-2023 End: 06-01-2023 ambulatory Gino Carrasquillo Other [employer] Other Start: 06-01-2023 Telephone encounter Gino Carrasquillo [facility] Start: 05-31-2023 End: 06-01-2023 ambulatory Kenji De Guzman MD Facility: [facility] Start: 05-19-2023 End: 05-19-2023 ambulatory Gino Carrasquillo Other [employer] Other Start: 05-19-2023 Telephone encounter Gino Carrasquillo [facility] Start: 04-13-2023 End: 04-13-2023 ambulatory Gino Carrasquillo Other [employer] Other Start: 04-13-2023 Office outpatient vi sit 15 minutes Gino Carrasquillo [facility] Start: 03-11-2023 End: 03-11-2023 ambulatory Gino Carrasquillo Other [employer] Other Start: 03-11-2023 Telephone encounter Gino Carrasquillo [facility] Start: 03-10-2023 End: 03-10-2023 ambulatory Gino Carrasquillo Other [employer] Other Start: 03-10-2023 Telephone encounter Gino Carrasquillo [facility] Start: 03-01-2023 End: 03-01-2023 ambulatory Gino Carrasquillo Other [employer] Other Start: 03-01-2023 Telephone encounter Gino Carrasquillo [facility] Start: 02-22-2023 End: 02-22-2023 ambulatory Gino Carrasquillo Other [employer] Other Start: 02-22-2023 Telephone encounter Gino Carrasqulilo [facility] Start: 02-16-2023 End: 02-16-2023 ambulatory Gino Carrasquillo Other [employer] Other Start: 02-16-2023 Office outpatient vi sit 15 minutes Gino Neida [facility] Start: 02-04-2023 End: 02-04-2023 ambulatory Gino Carrasquillo Other [employer] Other Start: 02-04-2023 Office outpatient vi sit 15 minutes Gino Neida [facility] Start: 02-02-2023 End: 02-02-2023 ambulatory Gino Carrasquillo Other [employer] Other Start: 02-02-2023 Telephone encounter Gino Neida [employer] Start: 01-28-2023 End: 01-28-2023 ambulatory Gino Carrasquillo Other [employer] Other Start: 01-28-2023 Office outpatient vi sit 15 minutes Gino Neida [facility] Start: 12-18-2022 End: 12-18-2022 ambulatory Gino Carrasquillo Other [employer] Other Start: 12-18-2022 Telephone encounter Gino Neida [facility] Start: 12-09-2022 End: 12-09-2022 Lab Drop off JUAN CARLOS WESTON [facility] Start: 10-05-2022 End: 10-06-[address] GINO CARRASQUILLO Facility:[facility] Start: 09-23-2022 End: 09-23-2022 ambulatory Gino Carrasquillo Other [employer] Other Start: 09-23-2022 Telephone encounter Gino Carrasquillo [facility] Start: 09-22-2022 End: 09-23-[address] GINO CARRASQUILLO Facility:[facility] Start: 09-08-2022 End: 09-08-2022 ambulatory Gino Carrasquillo Other [employer] Other Start: 09-08-2022 Office outpatient vi sit 15 minutes Gino Carrasquillo [facility] Start: 08-27-2022 End: 08-27-2022 ambulatory Gino Carrasquillo Other [employer] Other Start: 08-27-2022 Office outpatient vi sit 15 minutes Gino Carrasquillo [facility] Start: 08-13-2022 End: 08-13-2022 ambulatory Gino Carrasquillo Other [employer] Other Start: 08-13-2022 Telephone encounter Gino Carrasquillo [facility] Start: 08-12-2022 End: 08-13-[address] GINO CARRASQUILLO Facility:[facility] Start: 08-11-2022 End: 08-12-[address] GINO CARRASQUILLO Facility:[facility] Start: 08-10-2022 End: 08-10-2022 ambulatory Gino Carrasquillo Other [employer] Other Start: 08-10-2022 Office outpatient ne w 45 minutes Gino Carrasquillo [facility] Start: 07-16-2022 End: 07-16-2022 ambulatory ESA SHEA . Facility:[facility] Start: 03-09-2022 End: 03-09-[address] JOAQUIN DEVINE Facility:[facility] Start: 01-27-2022 End: 01-27-[address] JOAQUIN DEVINE Facility:[facility] Start: 11-26-2021 End: 11-26-2021 Lab Drop off Norma Pulido [facility] Start: 11-26-2021 End: 11-26-2021 Patient encounter procedure Norma Pulido [facility] Start: 11-22-2021 End: 11-23-[address] JOAQUIN DEVINE Facility:[facility] Start: 11-12-2021 End: 11-12-[address] JOAQUIN DEVINE Facility:[facility] Procedures Date Procedure Procedure Detail Performing Clinician Start: 02-21-2024 Adult depression scr eening assessment Joaquin Furlong DO Work Phone: Start: 08-23-2023 Follow-up visit Follow-up JOAQUIN DEVINE Start: 08-23-2023 Adult depression scr eening assessment Joaquin Furlong DO Work Phone: Start: 07-06-2023 Adult depression scr eening assessment Joaquin Furlong DO Work Phone: Start: 06-11-2023 Diabetic retinal eye exam Joaquin Furlong DO Work Phone: Start: 02-12-2023 Diabetic retinal eye exam Bridget Cummins [employer] Start: 07-23-2022 Adult depression scr eening assessment Bridget Cummins [employer] Start: 09-17-2021 Mammography Joaquin Fur long DO Work Phone: Start: 06-16-2021 Cystoscopy JUAN CARLOS PRAJAPATI Start: 03-26-2016 Colonoscopy Joaquin Fur long DO Work Phone: Colonoscopy Norma Pulido Cystoscopy Norma Pulido Hysterectomy Norma Pulido Plan of Treatment Date Care Activity Detail Author Start: 03-26-2026 Screening for malign ant neoplasm of colon Colonoscopy [facility] Start: 03-07-2025 Adult BMI Screening Adult BMI Screen ing [facility] Start: 03-07-2025 Tobacco Screening Tobacco Screening [facility] Start: 02-20-2025 Adult BMI Screening Adult BMI Screen ing [facility] Start: 02-20-2025 Depression Screening Depression Scre ening [facility] Start: 02-20-2025 Diabetic foot examination Diabetic Foot Exam [facility] Start: 02-20-2025 Fall Risk Screening Fall Risk Screen ing [facility] Start: 02-20-2025 Tobacco Screening Tobacco Screening [facility] Start: 10-10-2024 End: 10-10-2024 Patient encounter procedure 10/10/2024 3:00 PM EDT Office Visit [facility] [address] [place] [address] [facility] Start: 10-06-2024 Medicare Annual Well ness Visit Medicare Annual Wellness Visit [facility] Start: 09-13-2024 Adult BMI Follow Up Plan Adult BMI Follow Up Plan [facility] Start: 08-22-2024 Adult BMI Screening Adult BMI Screen ing [facility] Start: 08-22-2024 Depression Screening Depression Scre ening [facility] Start: 08-22-2024 Fall Risk Screening Fall Risk Screen ing [facility] Start: 08-22-2024 Tobacco Screening Tobacco Screening [facility] Start: 07-06-2024 Adult BMI Screening Adult BMI Screen ing [facility] Start: 07-06-2024 Depression Screening Depression Scre ening [facility] Start: 07-06-2024 Fall Risk Screening Fall Risk Screen ing [facility] Start: 07-06-2024 Tobacco Screening Tobacco Screening [facility] Start: 06-11-2024 Glaucoma screening Diabetic Op hthalmology Exam [facility] Start: 02-13-2024 Glaucoma screening Diabetic Op hthalmology Exam [facility] Start: 02-09-2024 Adult BMI Screening Adult BMI Screen ing [facility] Start: 02-09-2024 Tobacco Screening Tobacco Screening [facility] Start: 01-23-2024 COVID-19 Vaccine ( season) COVID-19 Vaccine ( season) [facility] Start: 01-23-2024 Influenza vaccination Influenza Vacc ine [facility] Start: 10-25-2023 End: 10-25-2023 Patient encounter procedure 10/25/2023 11:00 AM EDT Office Visit [facility] [address] [place] [address] Joaquin Devine DO [address], [facility] [place] [address] [facility] Start: 08-23-2023 End: 08-23-2023 Patient encounter procedure 08/23/2023 3:30 PM EDT Office Visit [facility] [address] [place] [address] Joaquin Devine DO [address], [facility] [place] [address] [facility] Start: 07-24-2023 Depression Screening Depression Scre ening [facility] Start: 07-24-2023 Fall Risk Screening Fall Risk Screen ing [facility] Start: 01-22-2023 COVID-19 Vaccine ( season) COVID-19 Vaccine ( season) [facility] Start: 01-22-2023 Influenza vaccination Influenza Vacc ine [facility] Start: 09-17-2022 Screening for malign ant neoplasm of breast Mammogram [facility] Start: 10-14-2021 DTaP,Tdap and Td Vaccines (2 - Td or Tdap) DTaP,Tdap and Td Vaccines (2 - Td or Tdap) [facility] Start: 2001 Administration of varicella zoster vaccine Zoster (Shingles) Vaccine (1 of 2) [facility] Start: 1970 Administration of varicella zoster vaccine Zoster (Shingles) Vaccine (1 of 2) [facility] Start: 1969 Diabetic foot examination Diabetic Foot Exam [facility] Start: 1950 Medicare Annual Well ness Visit Medicare Annual Wellness Visit [facility] Start: 1950 Urine screening for protein Urine Microalbumin [facility] End: 07-06-2024 Hemoglobin A1c/Hemoglobin.total in Blood Hemoglobin A1c Lab Routine Type 2 diabetes mellitus with diabetic nephropathy, without long-term current use of insulin ([facility]) 1 Occurrences starting 07/06/2023 until 07/06/2024 [employer] Phone: Comment on above: 1 Occurrences starti ng 07/06/2023 until 07/06/2024 Hemoglobin A1c/Hemoglobin.total in Blood Hemoglobin A1c Lab Routine Type 2 diabetes mellitus with diabetic nephropathy, without long-term current use of insulin ([facility]) 07/06/2023 9:50 PM EST [facility] Immunizations Immunization Date Immunization Notes Care Provider Fa cilijamison 03-15-2022 Influenza Vaccine, Quadrivalent, Adjuvanted Bridget [facility] 03-15-2022 influenza virus vaccine, unspecified formulation Bridget [facility] 05-06-2021 Influenza, High-dose , Quadrivalent Bridget [facility] 02-22-2020 influenza, high dose seasonal, preservative-free Harshqubrooklynn [facility] 02-06-2020 influenza, high dose seasonal, preservative-free Harshqubrooklynn [facility] 08-02-2019 pneumococcal polysaccharide vaccine, 23 valent Harshqubrooklynn [facility] 07-31-2019 influenza, high dose seasonal, preservative-free Harshqubrooklynn [facility] 05-21-2018 influenza, high dose seasonal, preservative-free Harshqubrooklynn [facility] 11-11-2017 pneumococcal polysaccharide vaccine, 23 valent Bridget [facility] 07-20-2014 pneumococcal conjuga te vaccine, 13 valent [facility] 02-24-2013 influenza virus vaccine, unspecified formulation [facility] 10-15-2011 tetanus toxoid, redu wanda diphtheria toxoid, and acellular pertussis vaccine, adsorbed [facility] NEGATED: Highlighted row has not occurred!11-26-2021 SARS-CoV-2 mRNA (tozinameran 5y-11y) vaccine Norma Pulido [facility] Payers Date Payer Category Payer Private Health Insurance 2022 Medicare AETNA MEDICARE A ETNA MEDICARE PLAN (PPO) [id number] 2022-Present [phone] [address] [place] [address] [id number] 2022 Medicare HMO A[employer] MEDICARE [id number] 1959 Medicare [id number] [id number] 1959 Medicare [id number] 1959 Medicare [id number] 1951 Unknown [id number] 2.16.840.1.889034.3.579.2. 593 1951 Unknown [id number] 2.16.840.1.187501.3.579.2. 593 1951 Unknown [id number] 2.16.840.1.111024.3.579.2. 593 1951 Unknown [id number] 2.16.840.1.420663.3.579.2. 593 1951 Unknown [id number] 2.16.840.1.018318.3.579.2. 593 1951 Unknown [id number] 2.16.840.1.698961.3.579.2. 593 1951 Unknown [id number] 2.16.840.1.674657.3.579.2. 593 1951 Unknown [id number] 2.16.840.1.676437.3.579.2. 593 1951 Unknown [id number] 2.16.840.1.094653.3.579.2. 593 1951 Unknown [id number] 2.16.840.1.109764.3.579.2. 196 1951 Unknown [id number] 2.16.840.1.888886.3.579.2. 1286 1951 Unknown [id number] 2.16.840.1.342982.3.579.2. 128 1951 Unknown [id number] 2.16.840.1.058072.3.579.2. 1286 1951 Unknown [id number] 2.16.840.1.894744.3.579.2. 128 1951 Unknown [id number] 2.16.840.1.160081.3.579.2. 1286 1951 Unknown [id number] 2.16.840.1.535845.3.579.2. 128 1951 Unknown [id number] 2.16.840.1.030081.3.579.2. 1286 1951 Unknown [id number] 2.16.840.1.954319.3.579.2. 1286 1951 Unknown [id number] 2.16.840.1.204213.3.579.2. 1286 1951 Unknown [id number] 2.16.840.1.963099.3.579.2. 1286 1951 Unknown [id number] 2.16.840.1.858582.3.579.2. 1286 1951 Unknown [id number] 2.16.840.1.985672.3.579.2. 727 1951 Unknown [id number] 2.16.840.1.830505.3.579.2. 727 1951 Unknown [id number] 2.16.840.1.409652.3.579.2. 727 Social History Date Type Detail Facility Start: 06-04-2021 End: 04-05-2024 Tobacco smoking status Never smoked tobacco (finding) [facility] Start: 02-08-2023 End: 10-07-2023 Sex Assigned At Female [facility] Tobacco smoking status Never [facility] Start: 04-13-2022 Tobacco use and exposure Smokeless tobacco non-user [facility] Start: 02-08-2023 End: 03-07-2024 Alcohol intake Ex-drinker (finding) [facility] Start: 02-08-2023 End: 10-07-2023 History of Social function [facility] Start: 1950 Sex Assigned At Not on file [facility] Has the Galenea, PAYMILL, or [employer] threatened to shut off services in your home in past 12Mo No [facility] Are you now , , , , never or living with a partner? [facility] How often to you hav e a drink containing alcohol? Monthly or less [facility] How often do you hav e 6 or more drinks on 1 occasion? Never [facility] Do you feel stress - tense, restless, nervous, or anxious, or unable to sleep at night because your mind is troubled all the time - these days [OSQ] Not at all [facility] Start: 12-27-2014 Sex Female (finding) [facility] Procedure Code Equipment Code Equipment Origin al Text Equipment Identifier Dates Inject 1 Lancet under the skin in the morning. E11.9. [id number] Start: 02-25-2024 1 strip by other route as needed for high blood sugar. [id number] Start: 02-21-2024 Functional Status Date Assessment Result Facility 04-05-2024 Functional Status N/A [facility] 12-15-2023 Functional Status N/A [facility] 11-26-2021 Functional Status N/A [facility] Clinical Notes 11-26-2021 to 04-05-2024 Laura Bullock MD - 03/07/2024 10:00 AM EDAdair Devine, DO - 08/23/2023 3:30 PM EDTTelephone Encounter - Genoveva Castle - 07/27/2023 2:40 PM Lavell Devine DO - 07/06/2023 3:40 PM EST Note Date & Type Note Facility 04-05-2024 Hospital Discharg e instructions Patient Education 04/05/2024 11:08:59 Dietary Guidelines to Help Prevent Kidney Stones Dietary Guidelines to Help Prevent Kidney Stones Kidney stones are deposits of minerals and salts that form inside your kidneys. Your risk of developing kidney stones may be greater depending on your diet, your lifestyle, the medicines you take, and whether you have certain medical conditions. Most people can lower their risks of developing kidney stones by following these dietary guidelines. Your dietitian may give you more specific instructions depending on your overall health and the type of kidney stones you tend to develop. What are tips for following this plan? Reading food labels Choose foods with no salt added or low-salt labels. Limit your salt (sodium) intake to less than 1,500 mg a day. Choose foods with calcium for each meal and snack. Try to eat about 300 mg of calcium at each meal. Foods that contain 200 500 mg of calcium a serving include: ?8 oz (237 mL) of milk, cciqvos-kdqpdgvfrzgr-bniob milk, and calcium-fortifiedfruit juice. Calcium-fortified means that calcium has been added to these drinks. ?8 oz (237 mL) of kefir, yogurt, and soy yogurt. ?4 oz (114 g) of tofu. ?1 oz (28 g) of cheese. ?1 cup (150 g) of dried figs. ?1 cup (91 g) of cooked broccoli. ?One 3 oz (85 g) can of sardines or mackerel. Most people need 1,000 1,500 mg of calcium a day. Talk to your dietitian about how much calcium is recommended for you. Shopping Buy plenty of fresh fruits and vegetables. Most people do not need to avoid fruits and vegetables, even if these foods contain nutrients that may contribute to kidney stones. When shopping for convenience foods, choose: ?Whole pieces of fruit. ?Pre-made salads with dressing on the side. ?Low-fat fruit and yogurt smoothies. Avoid buying frozen meals or prepared deli foods. These can be high in sodium. Look for foods with live cultures, such as yogurt and kefir. Choose high-fiber grains, such as whole-wheat breads, oat bran, and wheat cereals. Cooking Do not add salt to food when cooking. Place a salt shaker on the table and allow each person to add their own salt to taste. Use vegetable protein, such as beans, textured vegetable protein (TVP), or tofu, instead of meat in pasta, casseroles, and soups. Meal planning Eat less salt, if told by your dietitian. To do this: ?Avoid eating processed or pre-made food. ?Avoid eating fast food. Eat less animal protein, including cheese, meat, poultry, or fish, if told by your dietitian. To do this: ?Limit the number of times you have meat, poultry, fish, or cheese each week. Eat a diet free of meat at least 2 days a week. ?Eat only one serving each day of meat, poultry, fish, or seafood. ?When you prepare animal proteins, cut pieces into small portion sizes. For most meat and fish, one serving is about the size of the palm of your hand. Eat at least five servings of fresh fruits and vegetables each day. To do this: ?Keep fruits and vegetables on hand for snacks. ?Eat one piece of fruit or a handful of berries with breakfast. ?Have a salad and fruit at lunch. ?Have two kinds of vegetables at dinner. You may be told to limit foods that are high in a substance called oxalate. These include: ?Spinach (cooked), rhubarb, beets, sweet potatoes, and Citizen [place] chard. ?Peanuts. ?Potato chips, georgian fries, and baked potatoes with skin on. ?Nuts and nut products. ?Chocolate. If you regularly take a diuretic medicine, make sure to eat at least 1 or 2 servings of fruits or vegetables that are high in potassium each day. These include: ?Avocado. ?Banana. ?[place], prune, carrot, or tomato juice. ?Baked potato. ?Cabbage. ?Beans and split peas. Lifestyle Drink enough fluid to keep your urine pale yellow. This is the most important thing you can do. Spread your fluid intake throughout the day. If you drink alcohol: ?Limit how much you have to: ?0 1 drink a day for women who are not . ?0 2 drinks a day for men. ?Know how much alcohol is in your drink. In the [place] one drink equals one 12 oz bottle of beer (355 mL), one 5 oz glass of wine (148 mL), or one 1 oz glass of hard liquor (44 mL). Lose weight if told by your health care provider. Work with your dietitian to find an eating plan and weight loss strategies that work best for you. General information Talk to your health care provider and dietitian about taking daily supplements. Depending on your health and the cause of your kidney stones, you may be told: ?Do not take high-dose supplements of vitamin C (1,000 mg a day or more). ?To take a calcium supplement. ?To take a daily probiotic supplement. ?To take other supplements such as magnesium, fish oil, or vitamin B6. Take njvz-jth-rxonuuv and prescription medicines only as told by your health care provider. These include supplements. What foods should I limit? Limit your intake of the following foods, or eat them as told by your dietitian. Vegetables Spinach. Rhubarb. Beets. Canned vegetables. Pickles. Olives. Baked potatoes with skin. Grains Wheat bran. Baked goods. Salted crackers. Cereals high in sugar. Meats and other proteins Nuts. Nut butters. Large portions of meat, poultry, or fish. Salted, precooked, or cured meats, such as sausages, meat loaves, and hot dogs. Dairy Cheeses. Beverages Regular soft drinks. Regular vegetable juice. Seasonings and condiments Seasoning blends with salt. Salad dressings. Soy sauce. Ketchup. Barbecue sauce. Other foods Canned soups. Canned pasta sauce. Casseroles. Pizza. Lasagna. Frozen meals. Potato chips. Mohawk fries. The items listed above may not be a complete list of foods and beverages you should limit. Contact a dietitian for more information. What foods should I avoid? Talk to your dietitian about specific foods you should avoid based on the type of kidney stones you have and your overall health. Fruits Grapefruit. The item listed above may not be a complete list of foods and beverages you should avoid. Contact a dietitian for more information. Summary Kidney stones are deposits of minerals and salts that form inside your kidneys. You can lower your risk of kidney stones by making changes to your diet. The most important thing you can do is drink enough fluid. Drink enough fluid to keep your urine pale yellow. Talk to your dietitian about how much calcium you should have each day, and eat less salt and animal protein as told by your dietitian. This information is not intended to replace advice given to you by your health care provider. Make sure you discuss any questions you have with your health care provider. Document Revised: 08/20/2022 Document Reviewed: 08/20/2022 Built In Patient Education 2023 [employer]. Follow Up Care 12/15/2023 09:43:06 With:Ashok LAWTON, ALVIN Siddiqi, URO Address: When: Unknown [facility] 04-05-2024 Note Patient Education Nephrology Dietary Guidelines to Help Prevent Kidney Stones Kidney stones are deposits of minerals and salts that form inside your kidneys. Your risk of developing kidney stones may be greater depending on your diet, your lifestyle, the medicines you take, and whether you have certain medical conditions. Most people can lower their risks of developing kidney stones by following these dietary guidelines. Your dietitian may give you more specific instructions depending on your overall health and the type of kidney stones you tend to develop. What are tips for following this plan? Reading food labels ??? Choose foods with no salt added or low-salt labels. Limit your salt (sodium) intake to less than 1,500 mg a day. ??? Choose foods with calcium for each meal and snack. Try to eat about 300 mg of calcium at each meal. Foods that contain 200?500 mg of calcium a serving include: ? 8 oz (237 mL) of milk, cytfrkl-rrwrdzscaszq-vlgzg milk, and calcium-fortifiedfruit juice. Calcium-fortified means that calcium has been added to these drinks. ? 8 oz (237 mL) of kefir, yogurt, and soy yogurt. ? 4 oz (114 g) of tofu. ? 1 oz (28 g) of cheese. ? 1 cup (150 g) of dried figs. ? 1 cup (91 g) of cooked broccoli. ? One 3 oz (85 g) can of sardines or mackerel. Most people need 1,000?1,500 mg of calcium a day. Talk to your dietitian about how much calcium is recommended for you. Shopping ??? Buy plenty of fresh fruits and vegetables. Most people do not need to avoid fruits and vegetables, even if these foods contain nutrients that may contribute to kidney stones. ??? When shopping for convenience foods, choose: ? Whole pieces of fruit. ? Pre-made salads with dressing on the side. ? Low-fat fruit and yogurt smoothies. ??? Avoid buying frozen meals or prepared deli foods. These can be high in sodium. ??? Look for foods with live cultures, such as yogurt and kefir. ??? Choose high-fiber grains, such as whole-wheat breads, oat bran, and wheat cereals. Cooking ??? Do not add salt to food when cooking. Place a salt shaker on the table and allow each person to add their own salt to taste. ??? Use vegetable protein, such as beans, textured vegetable protein (TVP), or tofu, instead of meat in pasta, casseroles, and soups. Meal planning ??? Eat less salt, if told by your dietitian. To do this: ? Avoid eating processed or pre-made food. ? Avoid eating fast food. ??? Eat less animal protein, including cheese, meat, poultry, or fish, if told by your dietitian. To do this: ? Limit the number of times you have meat, poultry, fish, or cheese each week. Eat a diet free of meat at least 2 days a week. ? Eat only one serving each day of meat, poultry, fish, or seafood. ? When you prepare animal proteins, cut pieces into small portion sizes. For most meat and fish, one serving is about the size of the palm of your hand. ??? Eat at least five servings of fresh fruits and vegetables each day. To do this: ? Keep fruits and vegetables on hand for snacks. ? Eat one piece of fruit or a handful of berries with breakfast. ? Have a salad and fruit at lunch. ? Have two kinds of vegetables at dinner. ??? You may be told to limit foods that are high in a substance called oxalate. These include: ? Spinach (cooked), rhubarb, beets, sweet potatoes, and Citizen Of [place] chard. ? Peanuts. ? Potato chips, georgian fries, and baked potatoes with skin on. ? Nuts and nut products. ? Chocolate. ??? If you regularly take a diuretic medicine, make sure to eat at least 1 or 2 servings of fruits or vegetables that are high in potassium each day. These include: ? Avocado. ? Banana. ? [place], prune, carrot, or tomato juice. ? Baked potato. ? Cabbage. ? Beans and split peas. Lifestyle ??? Drink enough fluid to keep your urine pale yellow. This is the most important thing you can do. Spread your fluid intake throughout the day. ??? If you drink alcohol: ? Limit how much you have to: ? 0?1 drink a day for women who are not . ? 0?2 drinks a day for men. ? Know how much alcohol is in your drink. In the [place] one drink equals one 12 oz bottle of beer (355 mL), one 5 oz glass of wine (148 mL), or one 1? oz glass of hard liquor (44 mL). ??? Lose weight if told by your health care provider. Work with your dietitian to find an eating plan and weight loss strategies that work best for you. General information ??? Talk to your health care provider and dietitian about taking daily supplements. Depending on your health and the cause of your kidney stones, you may be told: ? Do not take high-dose supplements of vitamin C (1,000 mg a day or more). ? To take a calcium supplement. ? To take a daily probiotic supplement. ? To take other supplements such as magnesium, fish oil, or vitamin B6. ??? Take ksxn-wkh-vkhloin and prescription medicines only as told by your health (more content not included)... [facility] 03-07-2024 History of Presen t illness Narrative Images from the original note were not included. Chief Complaint: Skin lesion History of Present Illness: Jamir Jones is a 74 y.o. female presents to the office with skin lesion. It is located on her abdomen in the right lower quadrant. She states that she had a drain placed there 40 years ago. After the drain was removed, her skin healed and then a small skin cyst developed. It is soft, limited to the skin, it has not changed in appearance over the last 40 years as not grown in size. Recently for about a week it was irritating her, but now does not bothering her anymore. She is here to get it looked at. HPI Review of Systems Constitutional: Negative for fever and chills. Respiratory: Negative for shortness of breath. Cardiovascular: Negative for chest pain and palpitations. Gastrointestinal: Negative for nausea, vomiting and abdominal pain. Genitourinary: Negative for dysuria and difficulty urinating. Skin: Negative for rash and wound. Skin cyst Allergic/Immunologic: Negative for immunocompromised state. Neurological: Negative for weakness and light-headedness. Hematological: Does not bruise/bleed easily. Psychiatric/Behavioral: Negative for behavioral problems and confusion. Past Medical History: Diagnosis Date Anxiety Diabetes mellitus type 2, controlled ([facility]) Hyperlipidemia Osteoporosis Past Surgical History: Procedure Laterality Date EYE SURGERY Left 06/30/2022 Cataract HYSTERECTOMY 1985 Allergies Allergen Reactions Sulfamethoxazole-Trimethoprim Other (See Comments) Amoxicillin Rash Cefdinir Rash and Hives Lisinopril Cough Current Outpatient Medications: amLODIPine (NORVASC) 5 mg tablet, Take 1 tablet (5 mg total) by mouth in the morning., Disp: 90 tablet, Rfl: 1 aspirin 81 mg, Take 1 tablet (81 mg total) by mouth in the morning., Disp: , Rfl: atorvastatin (LIPITOR) 10 mg tablet, Take 1 tablet (10 mg total) by mouth in the morning., Disp: 30 tablet, Rfl: 5 blood-glucose meter (ONETOUCH VERIO FLEX METER) misc, 1 Unit by miscellaneous route in the morning., Disp: 1 each, Rfl: 0 calcium carbonate-vitamin D3 (CALTRATE) 600 mg(1,500mg) -400 units per tablet, Take 1 tablet by mouth in the morning., Disp: , Rfl: lancets (onetouch ultrasoft) misc, Inject 1 Lancet under the skin in the morning. E11.9., Disp: 100 each, Rfl: 3 metFORMIN (GLUCOPHAGE) 500 mg tablet, Take 1 tablet (500 mg total) by mouth in the morning and 1 tablet (500 mg total) in the evening. Take with meals., Disp: 60 tablet, Rfl: 5 ONETOUCH VERIO TEST STRIPS strip, 1 strip by other route as needed for high blood sugar., Disp: 100 strip, Rfl: 3 Social History Socioeconomic History Marital status: Spouse name: Not on file Number of children: Not on file Years of education: Not on file Highest education level: Not on file Occupational History Not on file Tobacco Use Smoking status: Never Smokeless tobacco: Never Vaping Use Vaping status: Never Used Substance and Sexual Activity Alcohol use: Not Currently Drug use: Never Sexual activity: Yes Partners: Male control/protection: None Other Topics Concern Not on file Social History Narrative Not on file Social Determinants of Health Financial Resource Strain: Low Risk (10/07/2023) Overall Financial Resource Strain (CARDIA) Difficulty of Paying Living Expenses: Not hard at all Food Insecurity: No Food Insecurity (02/21/2024) Hunger Screening Food Insecurity - Worry: Never True Food Insecurity - Inability: Never True Transportation Needs: No Transportation Needs (10/07/2023) PRAPARE - Transportation Lack of Transportation (Medical): No Lack of Transportation (Non-Medical): No Physical Activity: Sufficiently Active (10/07/2023) Exercise Vital Sign Days of Exercise per Week: 5 days Minutes of Exercise per Session: 30 min Stress: No Stress Concern Present (10/07/2023) [employer] - Occupational Stress Questionnaire Feeling of Stress : Not at all Social Connections: Moderately Integrated (10/07/2023) Social Connection and Isolation Panel [NHANES] Frequency of Communication with Friends and Family: More than three times a week Frequency of Social Gatherings with Friends and Family: More than three times a week Attends [employer] Services: More than 4 times per year Active Member of Clubs or Organizations: No Attends Club or Organization Meetings: Never Marital Status: Interpersonal Safety: Not At Risk (10/07/2023) Humiliation, Afraid, Rape, and Kick questionnaire Fear of Current or Ex-Partner: No Emotionally Abused: No Physically Abused: No Sexually Abused: No Housing Instability: Low Risk (10/07/2023) Housing Instability Housing Instability: No Family History Problem Relation Age of Onset Cancer Mother Was in her abdomen but does not know the primary Throat cancer Father Not sure if it was pharynx or larynx-he was a smoker Coronary artery disease Father High Cholesterol Father High Cholesterol Sister Cancer Sister 36 Cancer of her lower limb High Cholesterol Brother Alcohol abuse Brother 69 Breast cancer Neg Hx Physical Exam Vitals reviewed. Constitutional: Appearance: Normal appearance. HENT: Head: Normocephalic and atraumatic. Eyes: Pupils: Pupils are equal, round, and reactive to light. Cardiovascular: Rate and Rhythm: Normal rate. Pulmonary: Effort: Pulmonary effort is normal. Abdominal: General: There is no distension. Palpations: Abdomen is soft. Tenderness: There is no abdominal tenderness. Comments: RLQ <1cm skin lesion. Soft, benign appearing Musculoskeletal: General: No swelling. Skin: General: Skin is warm and dry. Neurological: Mental Status: She is alert and oriented to person, place, and time. Mental status is at baseline. Psychiatric: Mood and Affect: Mood normal. Behavior: Behavior normal. Vital Signs: Height 152.4 cm (5'), weight 58.9 kg (129 lb 12.8 oz). Respiratory Source: No data recorded Admission Weight: Weight: 58.9 kg (129 lb 12.8 oz) Labs: Lab Results Component Value Date WBC 6.0 01/06/2016 HGB 13.2 01/06/2016 HCT 38.8 01/06/2016 MCV 85 01/06/2016 PLT 159 01/06/2016 Lab Results Component Value Date GLU 107 (H) 07/06/2023 CALCIUM 10.2 07/06/2023 K 3.5 07/06/2023 CO2 28 07/06/2023 CL 105 07/06/2023 BUN 8 07/06/2023 CREATININE 0.62 07/06/2023 No results found for: AMYLASE No results found for: LIPASE Lab Results Component Value Date ALT 9 07/06/2023 AST 14 07/06/2023 ALKPHOS 49 07/06/2023 No results found for: INR , PROTIME Imaging: None Assessment: Jamir Jones is a 74 y.o.female with benign appearing skin lesion/cyst stable for 40 years. No primary diagnosis found. Plan: It was not bothering her anymore. She does not want it removed. Follow-up as needed. 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 Check A1 c next visit Hyperlipidemia, unspecified hyperlipidemia type Continue atorvastatin but if myalgias return then call and will decrease freqency to every other day. Acute deep vein thrombosis (DVT) of calf muscle vein of right lower extremity ([facility]) May stop Eliquis. She has only had 1 provoked DVT and was on Eliquis for 6+ months. Recommended to F/U with vascular. Benign essential hypertension BP at goal. Continue current regimen documented in this encounter [facility] 07-27-2023 Miscellaneous Notes Patient called to report a couple things. [...] in the meantime. documented in this encounter [facility] 07-27-2023 Telephone encounter Note Patient called to report a couple [...] a in office f/u scheduled for 10/05/23. [facility] 07-27-2023 Telephone encounter Note She should probably move that appointment up. Would need to know a lot more information about her chest pain [facility] [employer] 07-27-2023 Telephone encounter Note Moved visit up to 08/22 and instructed patient to go to the ER if symptoms worsen in the meantime. [facility] [employer] 07-06-2023 History of Presen t illness Narrative [...] nephropathy, without long-term current use of insulin ([facility]) - Hemoglobin A1c; Future Check A1c. She [...] Take with meals. documented in this encounter [employer] 06-09-2023 Evaluation note Encounter Date Diagnosis Assessment Notes May, Type 2 diabetes mellitus with hyperglycemia, without long-term current use of insulin (ICD-10 - E11.65) A1C increased - dose of metformin increased. Watch sweets, stay hydrated. May, Essential (primary) hypertension (ICD-10 - I10) BP stable today. DASH diet and good hydration May, Chronic fatigue (ICD-10 - R53.82) assess for iron deficiency and hypothyroidism [employer] Other 01-15-2024 Evaluation note* Encounter Date Diagnosis Assessment Notes Treatment Notes Treatment Clinical Notes May, Type 2 diabetes mellitus with hyperglycemia, without long-term current use of insulin (ICD-10 - E11.65) [employer] Other 01-15-2024 Miscellaneous Notes* Telephone Encounter - Bridget Cummins CMA - 06/07/2023 11:34 AM EST Called patient to reschedule appointment [facility] [employer] [id number] Telephone encounter Note* Telephone Encounter - Bridget Cummins CMA - 06/07/2023 11:34 AM EST Called patient to reschedule appointment [facility]01-09-2024 Evaluation note* Encounter Date Diagnosis Assessment Notes Treatment Notes Treatment Clinical Notes May, Essential (primary) hypertension (ICD-10 - I10) [employer] Other 11-21-2023 Evaluation note* Encounter Date Diagnosis Assessment Notes Treatment Notes Treatment Clinical Notes Mar, Lumbar back pain with radiculopathy affecting right lower extremity (ICD-10 - M54.16) Discussed holding atorvastatin to help with muscle pain. Pt agrees to referral to Pain Mgmt. Has had benign xrays of back and hip, per her report. [employer] Other 10-18-2023 Evaluation note* Encounter Date Diagnosis Assessment Notes Treatment Notes Treatment Clinical Notes Feb, Recurrent occipital headache (ICD-10 - R51.9) [employer] Other 10-09-2023 Evaluation note* Encounter Date Diagnosis Assessment Notes Treatment Notes Treatment Clinical Notes Feb, Essential (primary) hypertension (ICD-10 - I10) [employer] Other 09-26-2023 Evaluation note* Encounter Date Diagnosis [...] worsened since starting eliquis. Orders faxed to [facility]. [employer] Other 09-14-2023 Evaluation note* Encounter Date Diagnosis Assessment Notes Treatment Notes Treatment Clinical Notes Jan, Acute deep vein thrombosis (DVT) of calf muscle vein of right lower extremity (ICD-10 - I82.461) Wrote out instructions and gave samples of eliquis. Has appt later this week w vascular in [place]. Pt expresses understanding of the seriousness of this problem and will follow up w vascular and attribute to their treatment plan for DVT. [employer] Other 09-07-2023 Evaluation note* Encounter Date Diagnosis Assessment Notes Treatment Notes Treatment Clinical Notes Jan, Cervical pain (neck) (ICD-10 - M54.2) Printed order for PT. continue NSAIDs and heat therapy. Suspect her headaches are due to cervical problems. Jan, Varicose veins of both lower extremities with pain (ICD-10 - I83.813) Pt agrees to referral to vascular surgery for her prominent painful varicose veins. [employer] Other 07-28-2023 Evaluation note* Encounter Date Diagnosis Assessment Notes Treatment Notes Treatment Clinical Notes Nov, Type 2 diabetes mellitus with hyperglycemia, without long-term current use of insulin (ICD-10 - E11.65) [employer] Other 07-19-2023 Hospital Discharge instructions Follow Up Care 12/09/2022 15:14:32 With:Ashok LAWTON, Norma Chambers, URMilagro, URO Address: When: Unknown Comments:6 mos w/YAMILKA [facility] 05-03-2023 Evaluation note* Encounter Date Diagnosis Assessment Notes Treatment Notes Treatment Clinical Notes September, Abnormal mammogram of right breast (ICD-10 - R92.8) [employer] Other 04-18-2023 Evaluation note* Encounter Date Diagnosis Assessment Notes Treatment Notes Treatment Clinical Notes Aug, Vaginal yeast infection (ICD-10 - B37.31) Complete med and call if symptoms continue Aug, Screening mammogram for breast cancer (ICD-10 - Z12.31) [employer] Other 04-06-2023 Evaluation note* Encounter Date Diagnosis [...] - I10) Chronic problem - requests refill. [employer] Other 03-22-2023 NotePROCEDURE: XR HIP RT 2 3V W PELVIS HISTORY: Pain in right leg ; low back pain COMPARISON: None. FINDINGS: BONES:No fracture, acute abnormality, or significant arthropathy. SOFT TISSUES:No visible soft tissue swelling. EFFUSION:None visible. OTHER: Negative. IMPRESSION: 1. No acute bone abnormality or significant degenerative changes of the hip joints. Electronically authenticated by: KYLIE MENON Date: 2022-08-12 09:35[facility]03-20-2023 Evaluation note* Encounter Date Diagnosis Assessment [...] levels and will check later this week [employer] Other 07-06-2022 Hospital Discharge instructions Patient Education [...] Follow these instructions at home: Medicines Take sqxt-eor-oecelve and prescription medicines only as told by [...] or the blood stops without treatment. Take ctla-bge-sapglms and prescription medicines only as told by your health care provider. Drink enough fluid to keep your urine clear or pale yellow. This information is not intended to replace advice given to you by your health care provider. Make sure you discuss any questions you have with your health care provider. Document Released: 05/10/2006 Document Revised: 10/04/2019 Document Reviewed: 06/12/2017 [employer] Patient Education 2020 [employer] Follow Up Care 11/18/2021 15:11:49 With:Norma Pulido MD, URL, URO Address: When:1 year Comments:Renal US [facility] evaluation + Plan note Future Appointments Appointment Date:12/02/2022 08:00:00 AM Scheduled Provider:Norma Pulido MD Location:[facility] Appointment Type:URO Office Visit [facility] evaluation + Plan note Future Appointments Appointment Date:12/15/2023 09:00:00 AM Scheduled Provider:Norma Pulido MD Location:[facility] Appointment Type:URO Office Visit Diagnostic Tests Pending * [facility] Appointment Date:03/22/2024 10:45:00 AM Scheduled Provider:Norma Pulido MD Location:[facility] Appointment Type:URO Office Visit [facility] evaluation + Plan note Future Appointments Appointment Date:03/22/2024 10:45:00 AM Scheduled Provider:Norma Pulido MD Location:[facility] Appointment Type:URO Office Visit Diagnostic Tests Pending * Urine Culture 12/15/23 [facility] Evaluation noteNo [facility] [employer] Other Evaluation note* Diagnosis Type 2 diabetes mellitus with diabetic nephropathy, without long-term current use of insulin ([facility])- Primary Benign essential hypertension Essential hypertension, benign Hyperlipidemia, unspecified hyperlipidemia type Acute deep vein thrombosis (DVT) of calf muscle vein of right lower extremity ([facility]) documented [facility] Diagnosis Type 2 diabetes mellitus without complication, without long-term current use of insulin ([facility])- Primary Hyperlipidemia, unspecified hyperlipidemia type Acute deep vein thrombosis (DVT) of calf muscle vein of right lower extremity ([facility]) Benign essential hypertension Essential hypertension, benign documented in this encounter [facility] Diagnosis Type 2 diabetes mellitus without complication, without long-term current use of insulin ([facility])- Primary [facility] Diagnosis Skin lesion- Primary Unspecified disorder of skin and subcutaneous tissue Neoplasm of uncertain behavior of skin documented in this encounter [facility] Narrative - Reported* Type Description Date Medical History Hyperlipidemia Medical History Diabetes Medical History Hypertension Surgical History Hysterectomy 1987 [place] [employer] Other History general Narrative - Reported* Type Description Date Medical History Hyperlipidemia Medical History Diabetes Medical History Hypertension Surgical History Hysterectomy 1988 Hospitalization History SEE SURGICAL HX [facility] [employer] Other Hospital course Narrative No data available for this section [facility] Hospital Discharge instructions No data available for this section [facility] filed[facility]ed in [facility] [...] available for this section [facility] Summary Purpose Family History No Family History Records FoundNo Family History Records FoundNo Family History Records FoundNo Family History Records FoundNo Family History Records Found No data available for this section No data available for this section No Family History Records FoundNo Family History Records Found No data available for this section No Family History Records Found Advance Directives No [...] affecting right lower extremity (M54.16) Referral Organization [facility] Referring Provider First Name Gino Referring Provider Last Name Neida Referring Provider Specialty Family Medi cine Referred Organization [facility] Referred Address [address], [place],[address] Referred Provider Specialty Pain Medicin e Referral Priority Routine Reason [facility] [place] office? Last 2 OV, had xray and MRI. Occipital headaches Diagnosis 1 Recurrent occipital headache (R51.9) Referral Organization [facility] C gifty Referring Provider First Name Gino Referring Provider Last Name Carrasquillo Referring Provider Specialty Family Medi cine Referred Organization [facility] Referred Address [address] [place], [place],[address] Referred Provider Specialty Neurology Referral Priority Routine Reason [facility] [place] - varicose veins that are tender R>L Diagnosis 1 Varicose veins of yong th lower extremities with pain (I83.813) Referral Organization [facility] [email or web address] [facility] gifty Referring Provider First Name Gino Referring Provider Last Name Neida Referring Provider Specialty Family Medi cine Referred Organization [facility] Referred Provider Betty Matos Referred Address [address] Referred Provider Specialty Vascular Tena rj Referral Priority Routine General Notes Giselle Levy 11:48:16 AM >received today, attachments made, waiting for notes to be locked Giselle Levy 02/02/2023 09:22:14 AM >SENT TE TO LOCK NOTES Clinical Notes P: [id number] F: [id number] Additional Source Comments Care Team (unrecognized sect ion and content) 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 Relationship Specialty Start Date End Date Gino Carrasquillo MD [address] [place] [address] PCP - General Family Medicine 02/04/23 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 Relationship Specialty Start Date End Date Joaquin Devine DO [address] [place] [address] PCP - General Family Medicine 07/06/23 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 Relationship 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 Start Date End Date Joaquin Devine DO [address] [place] [address] PCP - General Family Medicine 07/06/23 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 Relationship 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 Start Date End Date Joaquin Deivne DO [address] [place] [address] PCP - General Family Medicine 07/06/23 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 Relationship 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 Start Date End Date Joaquin Devine DO [address], [place] [address] PCP - General Family Medicine 07/06/23 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 Relationship 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 Start Date End Date Joaquin Devine DO [address], [place] [address] PCP - General Family Medicine 07/06/23 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 Relationship Specialty Start Date End Date Joaquin Devine DO [address], [place] [address] PCP - General Family Medicine 07/06/23 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 Relationship 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 Start Date End Date Joaquin Devine DO [address], [place] [address] PCP - General Family Medicine 07/06/23 INFORMATION SOURCE (unrecogn ized section and content) DATE CREATED AUTHOR 11/27/2021 [facility] DATE CREATED AUTHOR AUTHOR'S ORGANIZ ATION 10/06/2022 [facility] DATE CREATED AUTHOR AUTHOR'S ORGANIZ ATION 06/02/2023 [facility] DATE CREATED AUTHOR AUTHOR'S ORGANIZ ATION 07/08/2023 [facility] DATE CREATED AUTHOR AUTHOR'S ORGANIZ ATION 11/18/2023 [facility] DATE CREATED AUTHOR AUTHOR'S ORGANIZ ATION 12/19[facility]2023 [facility] DATE CREATED AUTHOR AUTHOR'S ORGANIZ ATION 03/09/[address] [facility] DATE CREATED AUTHOR AUTHOR'S ORGANIZ ATION 04/07/2024 Akhil Corley [facility] REASON FOR VISIT (unrecogniz ed section and content) Reason Comments Wants to be a patient here again Reason Onset Date Comments Med Refill 08/12/2023 Reason Comments Follow-up 3 month Diabetes Hypertension Hyperlipidemia Moved up per dr manuela de jesus chest pain Reason Onset Date Comments Med Refill 08/26/2023 Reason Comments Suspicious Skin Lesion THE LESION IS AT AN OLD SURGERY DRAIN SITE. NO LONGER BOTHERING HER. NEOPLASM OF UNCERTAIN BEHAVIOR, REFERRED BY DR DEVINE Specialty Diagnoses / Procedures Referred By Agustin peres Referred To Contact General Surgery Diagnoses Neoplasm of uncertain behavior of skin Joaquin Devine, DO [address] [facility], [place] [address] Phone: tel: fax: [facility] [address] [place] [address] Phone: tel: fax: Referral ID Status Reason Start Date Expiration Date V isits Requested Visits Authorized [id number] Closed Specialty Services Required 02/21/2024 02/20/2025 1 1 FOR RECORDS PERTAINING TO PATIENTS WHO ARE [...] BE BASED ON THE PRIMARY CLINICAL RECORDS. [employer] provides no warranty or guarantee of the accuracy or completeness of information in this document.
--- NOTE | 2024-04-07 18:30 | ECG_ITS ---
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
--- NOTE | 2024-04-07 18:31 | CT_ITS ---
The [address] [address] Patient Name: PEARL HAWKINS MRN: [id number] date: 1950 Sex: F Assigned Patient Location: ER Current Patient Location: Accession/Order Number: [id number] Exam Date: 04/07/2024 18:42 Report Date: 04/07/2024 19:11 At the request of: GEOVANY TAMEZ Procedure: CT head/brain wo con NONCONTRAST CT SCAN OF THE HEAD HISTORY: Headache. TECHNIQUE: Multiple axial images are taken from the level the vertex down to the base of the skull without the use of IV contrast. Images were then reconstructed in the sagittal and coronal planes. This exam was performed according to our departmental dose-optimization program which includes use of Automated Exposure Control, adjustment of the mA and/or kV according to patient size and/or use of iterative reconstruction technique. COMPARISON: 06/15/2023 CT head FINDINGS: Brain Parenchyma: There is global, diffuse atrophy with periventricular decreased white matter attenuation. No intracranial mass. No intracranial hemorrhage. Posterior fossa: Normal. Midline shift: None Extra-axial fluid collection: None Ventricles: Normal. Mastoid air cells: Normal. Sinuses: Normal. Cranium: No depressed skull fracture. Soft tissues: Normal. Orbits: Normal. CT/CT head/brain wo con IMPRESSION: 1. Chronic small vessel ischemic change. 2. Otherwise, no CT evidence for acute pathology. 3. If patient continues to have symptoms or if there remains any further clinical concern, MRI may help better delineate. Electronically authenticated by: LAZARO TORRES Date: 04/07/2024 19:11
--- NOTE | 2024-04-07 18:32 | ED.DIZZY1 ---
HPI - Dizziness General Chief Complaint: Dizziness Stated Complaint: DIZZINESS, VOMITING Time Seen by Provider: 04/07/24 18:16 Source: patient Mode of arrival: Wheelchair Limitations: language barrier History of Present Illness HPI Narrative: 74-year-old female presents for dizziness which she describes as a spinning sensation. It is worse when she turns her head and it started about 10:00 this morning. She has had this before but not since 2017. She had some Antivert at home but it did not help. No complaints of localized weakness but she is nauseous. Related Data Home Medications ?Medication ?Instructions ?Recorded ?Confirmed apixaban 2.5 mg tablet (Eliquis) 2.5 mg PO BID 02/06/23 06/15/23 amlodipine 5 mg tablet 5 mg PO DAILY 05/31/23 04/07/24 atorvastatin 20 mg tablet 20 mg PO DAILY 05/31/23 04/07/24 meloxicam 7.5 mg tablet 7.5 mg PO DAILY 05/31/23 05/31/23 metformin 500 mg tablet 500 mg PO DAILY 05/31/23 04/07/24 calcium 600 mg (as cap PO 04/07/24 carbonate)-vitamin D3 5 mcg (200 unit) capsule (Calcium 600 + D(3)) meclizine 12.5 mg tablet mg 04/07/24 Previous Rx's ?Medication ?Instructions ?Recorded ondansetron 4 mg disintegrating 4 mg PO Q6H PRN nausea and 05/18/23 tablet vomiting #14 tabs diazepam 5 mg tablet (Valium) 5 mg PO Q8H PRN dizziness 3 days 04/07/24 #10 tabs Allergies Allergy/AdvReac Type Severity Reaction Status Date / Time amoxicillin Allergy Unknown Verified 06/15/23 03:13 cefdinir Allergy Unknown Verified 06/15/23 03:13 lisinopril Allergy Unknown Verified 06/15/23 03:13 metformin Allergy Unknown Verified 06/15/23 03:13 sulfamethoxazole (From Allergy Unknown Verified 06/15/23 03:13 Bactrim) trimethoprim (From Bactrim) Allergy Unknown Verified 06/15/23 03:13 Review of Systems ROS Narrative A ten point review of systems is negative except as noted above. PFSH PFSH Social History Smoking status: Never smoker Little interest or pleasure in doing things: not at all Feeling down, depressed, or hopeless: not at all Exam Narrative Exam Narrative: Nurses note and vital signs reviewed and patient is not hypoxic. General: The patient appears well and in no apparent distress. Patient is resting comfortably on cart. Skin: Warm, dry, no pallor noted. There is no rash noted. Head: Normocephalic, atraumatic; neck Eye: Normal conjunctiva, no drainage, EOMI. PERRL Ears, Nose, Mouth, and Throat: oral mucosa is moist. Nares patent. Cardiovascular: Regular Rate and Rhythm Respiratory: Patient is in no distress, no accessory muscle use, lungs are clear to auscultation, no wheezing, rales or rhonchi Back: non-tender GI: Normal bowel sounds, no tenderness to palpation, no masses appreciated. No rebound, guarding, or rigidity noted. Musculoskeletal: The patient has no evidence of calf tenderness, no pitting edema, symmetrical pulses noted bilaterally Neurological: Awake and alert. Upper and lower extremity strength intact. Psychiatric: Cooperative Constitutional Vital Signs, click to edit/add: Last Vital Signs Temp 98.4 F 04/07/24 18:08 Pulse 64 04/07/24 21:20 Resp 18 04/07/24 21:20 BP 126/76 04/07/24 21:15 Pulse Ox 96 04/07/24 21:20 O2 Del Method Room Air 04/07/24 18:03 Course Vital Signs Vital signs: Vital Signs Respiratory Rate 18 04/07/24 18:03 Blood Pressure 159/82 H 04/07/24 18:03 Pulse Oximetry 98 04/07/24 18:03 Oxygen Delivery Method Room Air 04/07/24 18:03 Temperature 98.4 F 04/07/24 18:08 Pulse Rate 64 04/07/24 21:20 Respiratory Rate 18 04/07/24 21:20 Blood Pressure 126/76 04/07/24 21:15 Pulse Oximetry 96 04/07/24 21:20 Oxygen Delivery Method Room Air 04/07/24 18:03 MDM - Dizziness MDM Narrative Medical decision making narrative: CAT scan brain is negative. Blood work normal. She was given IV Valium and feels much improved and is able to be discharged home. Her prescription from October is not but did not have efficacy. She will be prescribed oral Valium for home. Treatment diagnosis and follow-up were discussed with the patient and her family. Lab Data Attestation: I reviewed the patient's lab results. Labs: Lab Results 04/07/24 Range/Units 18:15 WBC 9.4 (4.0-11.0) 10^3/uL RBC 4.25 (4.20-5.40) 10^6/uL Hgb 12.4 (12.0-16.0) g/dL Hct 36.1 (36.0-48.0) % MCV 84.9 (81.0-99.0) fL MCH 29.2 (26.7-34.0) pg MCHC 34.3 (29.9-35.2) g/dL RDW 11.9 (11.0-15.0) % Plt Count 188 (150-450) 10^3/uL MPV 11.7 (9.5-13.5) fL Neut % (Auto) 75.4 H (43.0-75.0) % Lymph % (Auto) 18.6 L (20.5-60.0) % [place] % (Auto) 4.8 (1.7-12.0) % Eos % (Auto) 0.6 L (0.9-7.0) % Baso % (Auto) 0.3 (0.2-2.0) % Neut # (Auto) 7.1 H (1.4-6.5) 10^3/uL Lymph # (Auto) 1.8 (1.2-3.8) 10^3/uL [place] # (Auto) 0.5 (0.3-0.8) 10^3/uL Eos # (Auto) 0.1 (0.0-0.7) 10^3/uL Baso # (Auto) 0.0 (0.0-0.1) 10^3/uL Abs Immat Gran (auto) 0.03 (0.00-0.03) 10^3/uL Imm/Tot Granulo (auto) 0.3 (0.0-0.5) % Sodium 143 (136-145) mmol/L Potassium 3.2 L (3.5-5.1) mmol/L Chloride 104 (98-107) mmol/L Carbon Dioxide 26.8 (21.0-32.0) mmol/L Anion Gap 15.4 BUN 11.0 (7.0-18.0) mg/dL Creatinine 0.88 (0.55-1.02) mg/dL Est GFR ( Amer) >60 (>=60 mL/min/1.73m^2) Est GFR (Non-Af Amer) >60 (>=60 mL/min/1.73m^2) BUN/Creatinine Ratio 12.5 Glucose 176 H (74-106) mg/dL Calcium 9.1 (8.5-10.1) mg/dL Imaging Data CT scan - head: Radiologist's impression: ITS Impressions Head CT 04/07/24 18:31 IMPRESSION: 1. Chronic small vessel ischemic change. 2. Otherwise, no CT evidence for acute pathology. 3. If patient continues to have symptoms or if there remains any further clinical concern, MRI may help better delineate. Electronically authenticated by: LAZARO TORRES Date: 04/07/2024 19:11 ECG Data Attestation: I personally reviewed and interpreted this ECG as follows: (EKG on my interpretation shows sinus rhythm without acute change and a rate of 76) Discharge Plan Discharge Chief Complaint: Dizziness Clinical Impression: Vertigo Patient Disposition: Home, Self-Care Time of Disposition Decision: 21:36 Prescriptions / Home Meds: New diazepam [Valium] 5 mg tablet 5 mg PO Q8H PRN (Reason: dizziness) 3 Days Qty: 10 0RF No Action Eliquis 2.5 mg tablet 2.5 mg PO BID amlodipine 5 mg tablet 5 mg PO DAILY atorvastatin 20 mg tablet 20 mg PO DAILY meloxicam 7.5 mg tablet 7.5 mg PO DAILY metformin 500 mg tablet 500 mg PO DAILY ondansetron 4 mg tablet,disintegrating 4 mg PO Q6H PRN (Reason: nausea and vomiting) Qty: 14 0RF meclizine 12.5 mg tablet Calcium 600 + D(3) 600 mg-5 mcg (200 unit) capsule PO Print Language: Tajik Referrals: BRUCE WALLER [Primary Care Provider] - 1 week
[2024-04-07 18:42] LABS: Basophils Percent Auto 0.3 % (0.2-2.0); Eosinophils Absolute Auto 0.1 10^3/uL (0.0-0.7); Eosinophils Percent Auto 0.6 % (0.9-7.0); Hematocrit 36.1 % (36.0-48.0); Hemoglobin 12.4 g/dL (12.0-16.0); Immature Granulocytes Abs Auto 0.03 10^3/uL (0.00-0.03); Immature Granulocytes Pct Auto 0.3 % (0.0-0.5); Lymphocytes Absolute Auto 1.8 10^3/uL (1.2-3.8); Lymphocytes Percent Auto 18.6 % (20.5-60.0); Mean Corpuscular HGB Conc 34.3 g/dL (29.9-35.2); Mean Corpuscular Hemoglobin 29.2 pg (26.7-34.0); Mean Corpuscular Volume 84.9 fL (81.0-99.0); Mean Platelet Volume 11.7 fL (9.5-13.5); Monocytes Absolute Auto 0.5 10^3/uL (0.3-0.8); Monocytes Percent Auto 4.8 % (1.7-12.0); Neutrophils Absolute Auto 7.1 10^3/uL (1.4-6.5); Neutrophils Percent Auto 75.4 % (43.0-75.0); Platelet Count 188 10^3/uL (150-450); Red Blood Count 4.25 10^6/uL (4.20-5.40); Red Cell Distribution Width 11.9 % (11.0-15.0); White Blood Count 9.4 10^3/uL (4.0-11.0)
[2024-04-07] MEDS: DIAZEPAM 10 MG/2 ML SYRINGE 2.5 MG IV ×2 (18:49→20:46)
[2024-04-07] MEDS: ONDANSETRON PF 4 MG/2 ML VIAL IV (18:49)
[2024-04-07 18:57] LABS: Anion Gap 15.4; BUN Creatinine Ratio 12.5; Calcium 9.1 mg/dL (8.5-10.1); Carbon Dioxide 26.8 mmol/L (21.0-32.0); Chloride 104 mmol/L (98-107); Estimated GFR (African America >60 (>=60 mL/min/1.73m^2); Estimated GFR (Non-African Ame >60 (>=60 mL/min/1.73m^2); Glucose 176 mg/dL (74-106); Potassium 3.2 mmol/L (3.5-5.1); Sodium 143 mmol/L (136-145)
== END 2024-04-07 21:50 | disposition home or self-care (01) ==
PROVIDERS: Emergency Provider Emergency Medicine; PCP Family Medicine
DX: R42 Dizziness and giddiness (principal); R11.0 Nausea
CPT/HCPCS: 36415; 70450; 80048; 85025; 93005; 96374; 96375; 96376; 99285; J2405; J3360

== ENCOUNTER 2024-04-10 10:43 | Emergency (ER) | payer MEDICARE, SELFPAY ==
[2024-04-10 10:48] VITALS: BP 158/81; PULSE 94; TEMP 36.6; O2SAT 98; BMI 23.8
--- OUTSIDE RECORDS SUMMARY | 2024-04-10 11:21 | XMS_ITS | CCD ---
Author Organization [facility] CliniSynm Care Team Providers Care Boat Tender Name Role Phone JOAQUIN DEVINE Primary Care [...] DR GINO Lara Admitting Unavailable CARRASQUILLO, DR IGNO Lara Consulting Unavailable CARRASQUILLO, DR GINO Lara [...] Consulting Unavailable GINO CARRASQUILLO Primary Care Physician [phone] Gab LAWTON, Kenji Mckeon Attending Unavailable Gino Carrasquillo MD Primary Care Provider Furlong DO, Joaquin G Primary Care Provider FURLONG, JOAQUIN G Referring Unavailable FURLONG, JOAQUIN G Primary Care Unavailable FURLONG, JOAQUIN G Attending Unavailable FURLONG, JOAQUNI G Referring Unavailable FURLONG, JOAQUIN G Primary [...] Drug Allergy Cough (finding) [facility] Cephalosporins (antibiotic) (1 source) cefdinir; Translations: [cefdinir] Drug Allergy Eruption (morphologic abnormality) [facility] metFORMIN (1 source) metFORMIN; Translations: [metformin] Drug Allergy Other (qualifier value) [facility] Penicillins (antibiotic) (1 source) Amoxicillin; Translations: [amoxicillin] Drug Allergy Eruption of skin (disorder) [facility] Sulfamethoxazole / Trimethoprim (1 source) Sulfamethoxazole / Trimethoprim; Translations: [sulfamethoxazole-tr imethoprim] Drug Allergy Other (qualifier value) [facility] (20 sources) Amoxicillin; Translations: [amoxicillin] Drug Allergy 03-27-20 Eruption of skin (disorder), Hives, Rash [facility] (20 sources) cefdinir; Translations: [cefdinir] Drug Allergy 06-04-19 22 Eruption (morphologic abnormality), Rash, Hives [facility] (20 sources) Lisinopril; Translations: [lisinopril] Drug Allergy 06-04-19 22 Cough (finding), Cough [facility] (6 sources) metFORMIN; Translations: [metformin] Drug Allergy Other (qualifier value) [facility] (20 sources) Sulfamethoxazole / Trimethoprim; Translations: [sulfamethoxazole-tr imethoprim] Drug Allergy 06-04-19 22 Other (qualifier value), Other (See Comments) [facility] (1 source) Amino Acids Drug Allergy 07-16-19 23 [facility] Repository (1 source) Amoxicillin Drug Allergy 06-06-19 21 [facility] Rep[facility] (1 source) cefdinir Drug Allergy 07-16-19 23 [facility] Rep[facility] (1 source) metFORMIN Drug Allergy 07-16-19 23 [facility] Repository (1 source) Sulfamethoxazole / Trimethoprim Drug Allergy 07-16-19 23 [facility] Rep[facility] (1 source) metFORMIN Drug Allergy 06-04-19 Other (See Comments) [employer] [facility] [facility] (3 sources) Sulfamethoxazole / Trimethoprim; Translations: [SULFAMETHOXAZOLE-TR IMETHOPRIM] Drug Allergy 06-04-19 [facility] Repository Medications Current Medications Medication Drug Class(es) [...] ([facility]) Take 1 tablet (81 mg [...] Drug Class(es) Dates Sig (Normalized) Sig (Original) [id number] 200 actuat albuterol 0.09 mg/actuat metered dose [...] 20 mg/ml oral solution (2 sources) Uncompetitive X-ydmfil-Z-aspartat e Receptor Antagonist, Sigma-1 Agonist Start: 07-03-2022 [...] sources) Long-term current use of aspirin; Translations: [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 [facility] Reminderson 04-05-2024 Reminders Reminders From: Kathy Clements To: EU - Administrative; Sent: 04/05/2024 11:26:09 EST Show up: 06/07/2024 11:25:00 EST Subject: Ambulatory Reminder Due Date/Time: 10/05/2024 11:25:00 EDT Reminder/Recall Patient needs scheduled with an ANA M for a 6m f/u with YAMILKA and KUB, due back mid september 2024 [facility] Reminders Reminders From: Gi Su To: EU - Recalls Lue; Sent: 04/05/2024 11:10:16 EST Show up: 08/03/2024 12:10:00 EDT Subject: Renal US and KUB Due Date/Time: 08/03/2024 12:10:00 EDT Reminder Message Renal US and KUB prior to 6 mos appt. [facility]. Orders created. Normal [facility] Urology Office/Clinic Noteon 04-05-2024 Urology Office/Clinic Note [...] cystoscopy, urine cytology and CT urogram from [facility] 06/10/21 all negative. Micro UA 12/15/23 [...] the importance (more content not included)... Normal [facility] Comment on above: Result Comment: Elec tronically [...] would like to have YAMILKA/KUB done at [facility] Patient Letter FTon 2023 Patient Letter [facility] Patient Letter [facility] December 22, 2023 PEARL Schneider YEISON [facility] [place] [address] : 1950 Dear Pearl Jones, We have been trying to reach you with no success. It is important that you return our call regarding your recent test results upon receiving this letter. Also, at the time of your call, please provide us with your current information. Thank you for your prompt attention to this matter. Sincerely, [facility] [address], [place] [address] [facility] C Urineon 12-17-2023 Bacteria identified Cx Nom [...] Locations R1: This test was performed at: [facility], [address] [place] [address], [address]- , [place], [facility] Comment on above: Performed By: #### 2 [id number] #### [facility] [address] [place] [id number] Ambulatory Visit Summaryon 0 12-15-2023 Ambulatory Visit [...] Norma Pulido MD Where: [place] [address]- You Need to Schedule the Following Appointments [...] for choosing us for your care. Normal [facility] URINALYSISOrdered By: SYSTEM SYSTEM on 12-15-2023 Bilirubin Ql (U) Negative Normal Negativemg/ dL [facility] UA Auto SS Clarity (U) Clear (12/15/23 9:34 AM) Normal Clear [facility] UA Auto SS Color (U) Light-Yellow 1 (12/15/23 9:34 AM) Normal Yellow [facility] UA Auto SS Comment on above: Interpretive Data: M icroscopic readings are only performed on those samples that meet specific criteria set forth by [facility] Laboratory. Epithelial cells.squamous Auto (Urine sed) [#/Area] [...] Desc Clean Catch (7/24/24 9:34 AM) Normal [facility] UA Auto SS Urology Office/Clinic Noteon 12-15-2023 [...] cystoscopy, urine cytology and CT urogram from [facility] 06/10/21 all negative. UA today shows [...] 6-7 16oz bottles a day; preferably water, lemon/berry creek, more fruits/vegetables Pt opts to continue monitoring stone growth. -YAMILKA & KUB @ [facility]. Call pt with results. 4. Feeling of incomplete bladder emptying (R39.14: Feeling of incomplete bladder emptying) PVR (cc): 12/09/22 - 25 No PVR today, IO device pending replacement. See #2 5. Renal cyst (N28.1: Cyst of kidney, acquired) CT urogram from [facility] 06/10/21 3mm right renal cortex hypodensity [...] Colonoscopy, C (more content not included)... Normal [facility] Comment on above: Result Comment: Elec tronically Signed By: Norma Pulido MD\.br\Date and Time Signed: 12/15/23 09:50 EDT\.br\Electronically Co-Signed By: Jane Sotomayor\.br\Date and Time Co-Signed: 12/15/23 09:40 EDT COMPREHENSIVE METABOLIC PANE Navid 07-06-2023 Albumin [Mass/Vol] 4.5 g/dL Normal 3.2-5.3 [facility] Comment on above: Performed By: #### C MAGGIE, 36915-2, 2088-05 #### [facility] ([id number]) [address] [place] [address] ALP [Catalytic activity/Vol] 49 U/L Normal 39-130 [facility] Comment on above: Performed By: #### C MAGGIE, 89364-7, 2088-05 #### [facility] ([id number]) [address] [place] [address] ALT [Catalytic activity/Vol] 9 U/L Normal 0-31 [facility] Comment on above: Performed By: #### C MAGGIE, , 2088-05 #### [facility] ([id number]) [address] [place] [address] Anion gap [Moles/Vol] 10 mmol/L Normal 5-15 [facility] Comment on above: Performed By: #### C MAGGIE, , 2088-05 #### [facility] ([id number]) [address] [place] [address] AST [Catalytic activity/Vol] 14 U/L Normal 0-41 [facility] Comment on above: Performed By: #### Satinder SERRANO, , 2088-05 #### [facility] ([id number]) [address] [place] [address] Bilirubin [Mass/Vol] 0.4 mg/dL Normal 0.3-1.2 [facility] Comment on above: Performed By: #### Satinder SERRANO, , 2088-05 #### [facility] ([id number]) [address] [place] [address] Calcium [Mass/Vol] 10.2 mg/dL Normal 8.5-10.5 [facility] Comment on above: Performed By: #### Satinder SERRANO, , 2088-05 #### [facility] ([id number]) [address] [place] [address] Chloride [Moles/Vol] 105 mmol/L Normal 98-109 [facility] Comment on above: Performed By: #### Satinder SERRANO, , 2088-05 #### [facility] ([id number]) [address] [place] [address] CO2 [Moles/Vol] 28 mmol/L Normal 22-32 [facility] Comment on above: Performed By: #### Satinder SERRANO, , 2088-05 #### [facility] ([id number]) [address] [place] [address] Creatinine [Mass/Vol] 0.62 mg/dL Normal 0.40-1.00 [facility] Comment on above: Result Comment: METH OD TRACEABLE TO IDMS STANDARD Performed By: #### C MAGGIE, , 2088-05 #### [facility] ([id number]) [address] [place] [address] eGFR (CKD-EPI) NON-RACE DEPENDENT >90 Normal >59 [facility] Comment on above: Result Comment: Reported eGFR is based on the CKD-EPI 2020 equation that does not use a race coefficient. Performed By: #### Satinder SERRANO, , 2088-05 #### [facility] ([id number]) [address] [place] [address] Glucose [Mass/Vol] 107 mg/dL High 65-99 [facility] Comment on above: Performed By: #### Satinder SERRANO, , 2088-05 #### [facility] ([id number]) [address] [place] [address] Potassium [Moles/Vol] 3.5 mmol/L Normal 3.5-5.0 [facility] Comment on above: Performed By: #### Satinder SERRANO, , 2088-05 #### [facility] ([id number]) [address] [place] [address] Protein [Mass/Vol] 7.4 g/dL Normal 6.0-8.0 [facility] Comment on above: Performed By: #### Satinder SERRANO, , 2088-05 #### [facility] ([id number]) [address] [place] [address] Sodium [Moles/Vol] 143 mmol/L Normal 134-146 [facility] Comment on above: Performed By: #### C MAGGIE, 10075-6, 2088-05 #### [facility] ([id number]) [address] [place] [address] Urea nitrogen [Mass/Vol] 8 mg/dL Normal 5-27 [facility] Comment on above: Performed By: #### C MAGGIE, 71805-5, 2088-05 #### [facility] ([id number]) [address], [address] [place] [address] Comprehensive metabolic pane navid 07-06-2023 Albumin [Mass/Vol] 4.5 g/dL 3.2 - 5.3 g/dL [facility] ALP [Catalytic activity/Vol] 49 U/L 39 - 130 U/L [facility] ALT No additional P-5'-P [Catalytic activity/Vol] 9 U/L 0 - 31 U/L [facility] Anion gap [Moles/Vol] 10 mmol/L 5 - 15 mmol/L [facility] AST [Catalytic activity/Vol] 14 U/L 0 - 41 U/L [facility] Bilirubin [Mass/Vol] 0.4 mg/dL 0.3 - 1 .2 mg/dL [facility] Calcium [Mass/Vol] 10.2 mg/dL 8.5 - 10. 5 mg/dL [facility] Chloride [Moles/Vol] 105 mmol/L 98 - 10 9 mmol/L [facility] CO2 [Moles/Vol] 28 mmol/L 22 - 32 mmol/L [facility] Creatinine [Mass/Vol] 0.62 mg/dL 0.40 - 1.00 mg/dL [facility] Comment on above: METHOD TRACEABLE TO IDAZ STANDARD eGFR (CKD-EPI)non-race dependent - PINF [facility] Comment on above: Reported eGFR is based on the CKD-EPI 2020 equation that does not use a race coefficient. Glucose [Mass/Vol] 107 mg/dL High 65 - 99 mg/dL [facility] Potassium [Moles/Vol] 3.5 mmol/L 3.5 - 5.0 mmol/L [facility] Protein [Mass/Vol] 7.4 g/dL 6.0 - 8.0 g/dL [facility] Sodium [Moles/Vol] 143 mmol/L 134 - 146 mmol/L [facility] Urea nitrogen [Mass/Vol] 8 mg/dL 5 - 27 mg/dL [facility] DIRECT LDLon 07-06-2023 Cholesterol in LDL [Mass/Vol] 154 mg/dL High <130 [facility] Comment on above: Result Comment: LDL <100 mg/dL - Desirable LDL 130-159 mg/dL - Borderline High Risk LDL >160 mg/dL - High Risk Performed By: #### Satinder SERRANO, , 2088-05 #### [facility] ([id number]) [address] [place] [address] HGB A1C (GLYCO-HGB)on 2023 Glucose [Mass/Vol] 157 mg/dL Normal [facility] Comment on above: Performed By: ###Justin Rajan MP, , 2088-05 #### [facility] ([id number]) [address], [address] [place] [address] HbA1c (Bld) [Mass fraction] 7.1 % High 4.4-5.6 [facility] Comment on above: Result Comment: NOTE ADA Guidelines Result HgbA1c Normal : less than 5.7 % Prediabetes : 5.7 % to 6.4 % Diabetes : > 6.4 % Use with caution in patients with abnormal hemoglobin variants as the half-life of red blood cells and in vivo glycation rates are affected. Performed By: ###[place], [address]-7, 2088-05 #### [facility] ([id number]) [address], [address] [place] [address] Lipid 1996 panelon 4 Cholesterol [Mass/Vol] 234 mg/dL High 150 - 200 mg/dL [facility] Cholesterol in HDL [Mass/Vol] 54 mg/dL 39 - PINF mg/dL [facility] Comment on above: HDL <40 mg/dL - High Risk HDL > or = 40mg/dL- Desirable HDL >60 mg/dL - Negative Risk Cholesterol in LDL [Mass/Vol] RESULT NOT REPORTED DUE TO HIGH TRIGLYCERIDE NINF - 130 mg/dL [facility] Cholesterol in VLDL [Mass/Vol] 84 mg/dL High 0 - 30 mg/dL [facility] Cholesterol.total/Ch olesterol in HDL [Mass ratio] 4.3 {ratio} 1.0 - 5.0 [facility] Triglyceride [Mass/Vol] 418 mg/dL High 27 - 150 mg/dL [facility] Cholesterol [Mass/Vol] 234 mg/dL High 150-200 [facility] Comment on above: Performed By: #### Satinder SERRANO, 67506-9, 2088-05 #### [facility] ([id number]) [address], [address] [place] [address] Cholesterol in HDL [Mass/Vol] 54 mg/dL Normal >39 [facility] Comment on above: Result Comment: HDL <40 mg/dL - High Risk HDL > or = 40mg/dL- Desirable HDL >60 mg/dL - Negative Risk Performed By: #### Satinder SERRANO, 00755-9, 2088-05 #### [facility] ([id number]) [address] [place] [address] Cholesterol in VLDL [Mass/Vol] 84 mg/dL High 0-30 [facility] Comment on above: Performed By: #### C MAGGIE, , 2088-05 #### [facility] ([id number]) [address] [place] [address] CHOLESTEROL:HDL 4.3 Normal 1.0-5.0 [facility] Comment on above: Performed By: #### Satinder SERRANO, , 2088-05 #### [facility] ([id number]) [address], [address] [address] LDL (CALC) RESULT NOT REPORTED DUE TO HIGH TRIGLYCERIDE Normal <130 [facility] Comment on above: Performed By: #### Satinder SERRANO, , 2088-05 #### [facility] ([id number]) [address] [address] Triglyceride [Mass/Vol] 418 mg/dL High 27-150 [facility] Comment on above: Performed By: #### Satinder SERRANO, , 2088-05 #### [facility] ([id number]) [address], [address] [address] No Panel Informationon 07-06 Interpretation and review of laboratory results Abnormal [facility] URINALYSISOrdered By: Stephanie moy on 12-09-2022 [...] Interpretation Code Negative [facility] UA Auto SS [place].plasma/Lithi um.RBC (Bld) [Mass ratio] 0-3 /HPF Normal [...] [facility] UA Auto SS Urobilinogen Qn (U) [id number] {Tyrell'U}/dL Normal 0.0 - 1.0 EU/dL [facility] [...] : DR GINO CARRASQUILLO M.D. Admission #: [id number] Family : Order #: [id number] CLICK HERE TO VIEW EXAM RADIOLOGY REPORT [...] Treatments None Family Cancers None LOCATION: [facility] BREAST COMPOSITION: Heterogeneously dense,which may obscure [...] M.D. on 10/05/2022 at 08:35 Normal [facility] US BREAST RIGHT LIMITEDon US BREAST RIGHT LIMITED Patient: PEARL JONES Exam Date: 10/05/2022 : 1950 Gender:F Ordering : DR GINO CARRASQUILLO M.D. Admission #: [id number] Family : Order #: [id number] CLICK HERE TO VIEW EXAM RADIOLOGY REPORT [...] Treatments None Family Cancers None LOCATION: [facility] BREAST COMPOSITION: Heterogeneously dense,which may obscure [...] on 10/05/2022 at 08:[address] [facility] MG MAMM SCREEN 3D SALMA CADon 09-22-2022 MG MAMM SCREEN 3D SALMA CAD Patient: PEARL JONES Exam Date: 09/22/2022 : 1950 Gender:F Ordering : DR GINO CARRASQUILLO M.D. Admission #: [id number] Family : Order #: [id number] CLICK HERE TO VIEW EXAM RADIOLOGY REPORT [...] None Family Cancers None LOCATION: [facility] BREAST COMPOSITION: Heterogeneously dense,which may obscure [...] on 09/23/2022 at 08:[address] [facility] CBC AUTO DIFFon 08-12-2022 BASO # 0.0 103/ul Normal 0.0-0.1 [facility] Comment on above: Performed By: #### C BC ####[facility] [address] [place] [address]Dr. Silvino Clifton Basophils/100 WBC (Bld) 0.7 % Normal 0.2-2.0 [facility] Comment on above: Performed By: #### C BC ####[facility] [address] [place] [address]Dr. Silvino Clifton EO # 0.1 103/ul Normal 0.0-0.7 [facility] Comment on above: Performed By: #### C BC ####[facility] [address] [place], [place] [address]Dr. Silvino Clifton Eosinophils/100 WBC (Bld) 2.1 % Normal 0.9-7.0 [facility] Comment on above: Performed By: #### C BC ####[facility] [address] [place], [place] [address]Dr. Silvino Clifton Erythrocyte distribution width (RBC) [Ratio] 12.3 % Normal 11.0-15.0 [facility] Comment on above: Performed By: #### C BC ####[facility] [address] [place], [place] [address]Dr. Silvino Clifton Hematocrit (Bld) [Volume fraction] 38.2 % Normal 36.0-48.0 [facility] Comment on above: Performed By: #### C BC ####[facility] [address] [place], [place] [address]Dr. Silvino Clifton Hemoglobin (Bld) [Mass/Vol] 12.8 g/dL Normal 12.0-16.0 [facility] Comment on above: Performed By: #### C BC ####[facility] [address] [place] [address]Dr. Silvino Clifton IG # 0.02 10e3/ul Normal 0.00-0.03 [facility] Comment on above: Performed By: #### C BC ####[facility] [address] [place] [address]Dr. Silvino Etienne IG % 0.3 % Normal 0.0-0.5 [facility] Comment on above: Performed By: #### C BC ####[facility] [address] [place] [address]Dr. Silvino Etienne LYMPH # 2.2 103/ul Normal 1.2-3.8 [facility] Comment on above: Performed By: #### C BC ####[facility] [address] [place] [address]Dr. Suzyoriana Clifton Lymphocytes/100 WBC (Bld) 35.4 % Normal 20.5-60.0 [facility] Comment on above: Performed By: #### C BC ####[facility] [address] [place] [address]Dr. Suzyoriana Clifton MANUAL DIFF REQ NO Normal [facility] Comment on above: Performed By: #### C BC ####[facility] [address] [place] [address]Dr. Silvino Etienne MCH (RBC) [Entitic mass] 28.0 pg Normal 26.7-34.0 [facility] Comment on above: Performed By: #### C BC ####[facility] [address] [place], [place] [address]Dr. Silvino Clifton MCHC (RBC) [Mass/Vol] 33.5 g/dL Normal 29.9-35.2 [facility] Comment on above: Performed By: #### C BC ####[facility] [address] [place] [address]Dr. Silvino Etienne MCV (RBC) [Entitic vol] 83.6 fL Normal 81.0-99.0 [facility] Comment on above: Performed By: #### C BC ####[facility] [address] [place], [place] [address]Dr. Silvino Clifton MONO # 0.4 103/ul Normal 0.3-0.8 [facility] Comment on above: Performed By: #### C BC ####[facility] [address] [place] [address]Dr. Silvino Clifton Monocytes/100 WBC (Bld) 7.2 % Normal 1.7-12.0 [facility] Comment on above: Performed By: #### C BC ####[facility] [address] [place] [address]Dr. Silvino Clifton NEUT # 3.3 103/ul Normal 1.4-6.5 [facility] Comment on above: Performed By: #### C BC ####[facility] [address] [place] [address]Dr. Silvino Clifton Neutrophils/100 WBC (Bld) 54.3 % Normal 43.0-75.0 [facility] Comment on above: Performed By: #### C BC ####[facility] [address] [place] [address]Dr. Silvino Clifton Platelet mean volume (Bld) [Entitic vol] 11.3 fL Normal 9.5-13.5 [facility] Comment on above: Performed By: #### C BC ####[facility] [address] [place] [address]Dr. Silvino Clifton PLT 208 103/ul Normal 150-450 [facility] Comment on above: Performed By: #### C BC ####[facility] [address] [place] [address]Dr. Silvino Clifton RBC 4.57 106/ul Normal 4.20-5.40 [facility] Comment on above: Performed By: #### C BC ####[facility] [address] [place] [address]Dr. Silvino Clifton WBC 6.2 103/ul Normal 4.0-11.0 [facility] Comment on above: Performed By: #### C BC ####[facility] [address] [place], [place] [address]Dr. Silvino Clifton GLYCOHEMOGLOBIN A1Con 2022 ADA RECOMMENDATION SEE BELOW Normal [facility] Comment on above: Result Comment: ADA RECOMMENDED LIMIT 4.0 - 6.0 ADA THERAPEUTIC TARGET < 7.0 ACTION SUGGESTED > 7.0 Performed By: #### A 1C #### [facility] [address] [place], [place] [address] Dr. Silvino Clifton Glucose [Mass/Vol] 169 mg/dL Normal [facility] Comment on above: Performed By: #### A 1C #### [facility] [address] [place], [place] [address] Dr. Silvino Clifton HbA1c (Bld) [Mass fraction] 7.5 % Critically high 4.5-6.[address] [facility] Comment on above: Performed By: #### A 1C #### [facility] [address] [place] [address] [address] Silvino Clifton LIPID PROFILEon 08-12-2022 CHOL-HDL RATIO NORM SEE BELOW Normal [facility] Comment on above: Result Comment: 3.3 - 4.4 LOW RISK 4.4 - 7.1 AVERAGE RISK 7.1 - 11.0 MODERATE RISK >11.0 HIGH RISK Performed By: #### M Charlotte, CMP, LIPID ####[facility] Clmgewgofs[address] [place] [id number] Clifton Cholesterol [Mass/Vol] 185 mg/dL Normal <=[address] [facility] Comment on above: Performed By: #### Hang [place], CMP, LIPID ####[facility] Dmiqcpvgjt0196 [place] [id number] Clifton Cholesterol in HDL [Mass/Vol] 58 mg/dL Normal 40-[address] [facility] Comment on above: Performed By: #### Hang [place], CMP, LIPID ####[facility] X[address]kksf[address] [place], [place] [address]FrNatividad Clifton Cholesterol in LDL [Mass/Vol] 95.4 mg/dL Normal [facility] Comment on above: Performed By: #### M G, CMP, LIPID ####[facility] Bdsxynugpo1257 [place] [phone] Clifton Cholesterol.total/Ch olesterol in HDL [Mass ratio] 3.2 {ratio} Normal [facility] Comment on above: Performed By: #### M G, CMP, LIPID ####[facility] [address]deqzmsskh76[address] [place] [phone]. Silvino Clifton HDL NORMAL > or = 60 mg/dl - LO W CARDIOVASCULAR RISK <40 mg/dl - HIGH CARDIOVASCULAR RISK Normal [facility] Comment on above: Performed By: #### Hang [place], CMP, LIPID ####[facility] [address]otcjmis[address] [place] [address]Dr. Silvino Clifton LDL CALC NORMAL SEE BELOW Normal [facility] Comment on above: Result Comment: <100 mg/dl OPTIMAL 100 - 129 mg/dl NEAR OR ABOVE OPTIMAL 130 - 159 mg/dl BORDERLINE HIGH 160 - 189 mg/dl HIGH >190 mg/dl VERY HIGH Performed By: #### M Charlotte, CMP, LIPID ####[facility] [address]amj[address] [place] [address]Dr. Silvino Clifton Triglyceride [Mass/Vol] 158 mg/dL Critically high <=[address] [facility] Comment on above: Performed By: #### Hang [place], CMP, LIPID ####[facility] Oruexqolni[address] [place] [address]Dr. Silvino Clifton VLDL CALC 31.6 mg/dL Normal [facility] Comment on above: Performed By: #### Hang [place], CMP, LIPID ####[facility] [address]xigoehouy[address] [place] [address]Dr. Silvino Clifton MAGNESIUMon 08-12-2022 Magnesium [Mass/Vol] 1.6 mg/dL Critically low 1.8-2.[address] [facility] Comment on above: Performed By: #### Hang [place], CMP, LIPID ####[facility] Zqfclqehrp[address] [place] [address]Dr. Silvino Clifton PROF 14(COMP METB)on 023 Albumin [Mass/Vol] 4.0 g/dL Normal 3.4-5.0 [facility] Comment on above: Performed By: #### Hang [place], CMP, LIPID ####[facility] Qhkmxoaswt5763 [place] [address]Dr. Silvino Clifton Albumin/Globulin [Mass ratio] 1.2 {ratio} Normal [facility] Comment on above: Performed By: #### Hang [place], CMP, LIPID ####[facility] Wtaelztkgu[address] [place] [address]Dr. Silvino Clifton ALP [Catalytic activity/Vol] 61 U/L Normal 46-[address] [facility] Comment on above: Performed By: #### M G, CMP, LIPID ####[facility] Mzbvnbrsan[address] [place] [address]Dr. Silvino Clifton ALT [Catalytic activity/Vol] 17 U/L Normal 14-59 [facility] Comment on above: Performed By: #### M G, CMP, LIPID ####[facility] Lxbogdeirt[address] [place] [address]Dr. Silvino Clifton Anion gap [Moles/Vol] 11.8 mmol/L Normal [facility] Comment on above: Performed By: #### M G, CMP, LIPID ####[facility] [address] [place], [place] [address]Dr. Silvino Clifton AST [Catalytic activity/Vol] 16 U/L Normal 15-37 [facility] Comment on above: Performed By: #### M G, CMP, LIPID ####[facility] [address] [place], [place] [address]Dr. Suzyoriana Clifton Bilirubin [Mass/Vol] 0.4 mg/dL Normal 0.2-1.[address] [facility] Comment on above: Performed By: #### M G, CMP, LIPID ####[facility] V[address]thqnhcw[address] [place] [address]Dr. Silvino Clifton Calcium [Mass/Vol] 9.3 mg/dL Normal 8.5-10.1 [facility] Comment on above: Performed By: #### M G, CMP, LIPID ####[facility] Jlarvovghj64[address] [place] [address]Dr. Suzyoriana Clifton Chloride [Moles/Vol] 106 mmol/L Normal 98-107 [facility] Comment on above: Performed By: #### M G, CMP, LIPID ####[facility] Otcpxuccfm[address] [place] [address]Dr. Silvino Clifton CO2 [Moles/Vol] 28.3 mmol/L Normal 21.0-32.0 [facility] Comment on above: Performed By: #### M G, CMP, LIPID ####[facility] Zxtedeigmm6859 [place] [phone]. Suzyoriana Clifton Creatinine [Mass/Vol] 0.72 mg/dL Normal 0.55-1.[address] [facility] Comment on above: Performed By: #### M G, CMP, LIPID ####[facility] Xelculraqt[address] [place] [phone]. Silvino Clifton EGFR-AF KITTITIAN >60 Normal >=60 [facility] Comment on above: Performed By: #### M G, CMP, LIPID ####[facility] Tbpneideoj75[address] [place] [phone]. Silvino Clifton EGFR-NON AF KITTITIAN >60 Normal >=[address] [facility] Comment on above: Performed By: #### M G, CMP, LIPID ####[facility] Xugqarirzu1849 [place] [phone]. Silvino Clifton Globulin (S) [Mass/Vol] 3.3 g/dL Normal [facility] Comment on above: Performed By: #### M G, CMP, LIPID ####[facility] Rxjsujjnad4315 [place] [phone]. Silvino Clifton Glucose [Mass/Vol] 167 mg/dL Critically high 74-106 [facility] Comment on above: Performed By: #### M G, CMP, LIPID ####[facility] Lntpknpezx8467 [place] [phone]. Silvino Clifton Potassium [Moles/Vol] 4.1 mmol/L Normal 3.5-5.[address] [facility] Comment on above: Performed By: #### M G, CMP, LIPID ####[facility] Oycptidpqn28[address] [place] [phone]. Silvino Clifton Protein [Mass/Vol] 7.3 g/dL Normal 6.4-8.2 [facility] Comment on above: Performed By: #### M G, CMP, LIPID ####[facility] Fumrxbcpak77[address] [place] [phone]. Silvino Clifton Sodium [Moles/Vol] 142 mmol/L Normal 136-145 [facility] Comment on above: Performed By: #### M G, CMP, LIPID ####[facility] Jfsvstkcig3[address] [place], [place] [address]Vo. Silvino Clifton Urea nitrogen [Mass/Vol] 13.0 mg/dL Normal 7.0-18.[address] [facility] Comment on above: Performed By: #### M G, CMP, LIPID ####[facility] [address]fzcynfjvh36[address] [place], [place] [address]Vq. Silvino Clifton Urea nitrogen/Creatinine [Mass ratio] 18.1 mg/mg Normal [facility] Comment on above: Performed By: #### M G, CMP, LIPID ####[facility] Wwehoermec[address] [place], [place] [address]Og. Silvino Clifton XR LSPINE 2_3 VIEWSon 2022 [...] Date: 2022-08-12 09:[address] [facility] XR DEXA BONE DENSITYon 08-11 XR [...] KYLIE MENON Date: 2022-08-11 13:51 Normal [facility] CT CSPINE WO CONon CT CSPINE [...] M JESUS Date: 2022-03-09 11:40 Normal [facility] CT HEAD WO CONon 03-09-2022 CT [...] Date: 2022-03-09 11:[address] [facility] PAP ACOG PANEL 2: 30 to 65on 01-30-2022 . . Normal [facility] Comment on above: Performed By: #### 4 [id number] ####[facility] Xmljetvbpq5916 [place] [phone]. Silvino Clifton Age Gdln ACOG Testing Comment Normal [facility] Comment on above: Result Comment: <21 or >65 or no age provided Performed By: #### 4 [id number] ####[facility] [address] [place], [place] [address]DrNatividad Clifton DIAGNOSIS: Comment Normal [facility] Comment on above: Result Comment: NEGA TIVE FOR INTRAEPITHELIAL LESION OR MALIGNANCY. CELLULAR CHANGES ASSOCIATED WITH ATROPHY ARE PRESENT. Performed By: #### 4 [id number] ####[facility] [address]uc[address] [place], [place] [address]Dr. Silvino Clifton Methodology: Comment Normal [facility] Comment on above: Result Comment: This liquid based ThinPrep(R) pap test was screened with the use of an image guided system. Performed By: #### 4 [id number] ####[facility] Uhwn[address]ysq[address] [place], [place] [address]Dr. Silvino Clifton Note: Comment Normal [facility] Comment on above: Result Comment: The Pap smear is a screening test designed to aid in the detection of premalignant and malignant conditions of the uterine cervix. It is not a diagnostic procedure and should not be used as the sole means of detecting cervical cancer. Both false-positive and false-negative reports do occur. . Performed By: #### 4 [id number] ####[facility] [address]the[address] [place], [place] [address]Dr. Silvino Clifton Performed by: Comment Normal [facility] Comment on above: Result Comment: Isabel Gong, Rn Baby (ASCP) Performed By: #### 4 [id number] ####[facility] [address] [place], [place] [address]DrNatividad Clifton Specimen adequacy: Comment Normal [facility] Comment on above: Result Comment: Sati sfactory for evaluation. Performed By: #### 4 [id number] ####[facility] [address]vhqx36[address] [place], [place] [address]Qp. Silvino Clifton BASIC METABOLIC PANELon 07-0 BUN/CREATININE RATIO NOT APPLICABLE Normal 6-22 [facility] Comment on above: Order Comment: FASTI NG:YES FASTING: YES Performed By: #### 1 0165, 496 #### [facility] [address], [address] [place] [address] Fur Machine Operator: Scott Nichols MD Calcium [Mass/Vol] 9.6 mg/dL Normal 8.6-10.4 [facility] Comment on above: Order Comment: FASTI NG:YES FASTING: YES Performed By: #### 1 0165, 496 #### [facility] [place] [address] [employer] Machine Operator: Scott Nichols MD Chloride [Moles/Vol] 104 mmol/L Normal 98-110 [facility] Comment on above: Order Comment: FASTI NG:YES FASTING: YES Performed By: #### 1 0165, 496 #### [facility] [place] [address] [employer] Machine Operator: Scott Nichols MD CO2 [Moles/Vol] 31 mmol/L Normal 20-32 [facility] Comment on above: Order Comment: FASTI NG:YES FASTING: YES Performed By: #### 1 0165, 496 #### [facility] [place] [address] Fur Machine Operator: Scott Nichols MD Creatinine [Mass/Vol] 0.64 mg/dL Normal 0.60-0.93 [facility] Comment on above: Order Comment: FASTI NG:YES FASTING: YES Result Comment: For patients >49 years of age, the reference limit for Creatinine is approximately 13% higher for people identified as -Estonian. Performed By: #### 1 0165, 496 #### [facility] [address], [address] [place] [address] Fur Machine Operator: Scott Nichols MD eGFR NON-AFR. KITTITIAN 90 mL/min/1.73m2 Normal > OR = 60 [facility] Comment on above: Order Comment: FASTI NG:YES FASTING: YES Performed By: #### 1 0165, 496 #### [facility] [address], [address] [place] [address] Fur Machine Operator: Scott Nichols MD GFR/1.73 sq M.predicted among blacks MDRD (S/P/Bld) [Vol rate/Area] 105 mL/min/{1.73_m2} Normal > OR = 60 [facility] Comment on above: Order Comment: FASTI NG:YES FASTING: YES Performed By: #### 1 0165, 496 #### [facility] [address], [address] [place] [address] Fur Machine Operator: Scott Nichols MD Glucose [Mass/Vol] 136 mg/dL High 65-99 [facility] Comment on above: Order Comment: FASTI NG:YES FASTING: YES Result Comment: Fasting reference interval For someone without known diabetes, a glucose value >125 mg/dL indicates that they may have diabetes and this should be confirmed with a follow-up test. Performed By: #### 1 0165, 496 #### [facility] [address], [address] [place] [address] Fur Machine Operator: Scott Nichols MD Potassium [Moles/Vol] 4.3 mmol/L Normal 3.5-5.3 [facility] Comment on above: Order Comment: FASTI NG:YES FASTING: YES Performed By: #### 1 0165, 496 #### [facility] [address], [address] [place] [address] Fur Machine Operator: Scott Nichols MD Sodium [Moles/Vol] 141 mmol/L Normal 135-146 [facility] Comment on above: Order Comment: FASTI NG:YES FASTING: YES Performed By: #### 1 0165, 496 #### [facility] [address], [address] [place] [address] Fur Machine Operator: Scott Nichols MD Urea nitrogen [Mass/Vol] 9 mg/dL Normal 7-25 [facility] Comment on above: Order Comment: FASTI NG:YES FASTING: YES Performed By: #### 1 0165, 496 #### [facility] [address] [place] [address] Rd, [address] [place] [phone] Fur Machine Operator: Scott Nichols MD HEMOGLOBIN A1con 11-27-2021 [...] 1 0165, 496 #### [facility] [address], [address] [place] [address] Fur Machine Operator: Scott Nichols MD URINALYSISOrdered By: Aggie [...] AM) Normal Negative [facility] UA Auto SS [place].plasma/Lithi um.RBC (Bld) [Mass ratio] 0-3 /HPF Normal [...] AM) Invalid Interpretation Code 1.005 - 1.030 [facility] UA Auto SS UA Spec Desc Clean Catch (11/26/21 10:54 AM) Normal [facility] UA Auto SS Urobilinogen Qn (U) [id number] {Tyrell'U}/dL Normal 0.0 - 1.0 EU/dL FT UA Auto SS WBC Auto Ql (U) Negative (11/26/21 10:54 AM) Normal Negative [facility] UA Auto SS WBC LM.HPF (Urine sed) [#/Area] 0-5 /HPF Normal 0-5/HPF [facility] UA Auto SS CT ABD/PELVIS WO CONon [...] LOBITO YEE Date: 2021-11-24 01:04 Normal [facility] CBC AUTO DIFFon 11-12-2021 BASO # 0.1 103/ul Normal 0.0-0.[address] [facility] Comment on above: Performed By: #### C BC ####[facility] Ddnpbygtwd[address]2 [place] [phone]. Silvino Clifton Basophils/100 WBC (Bld) 0.6 % Normal 0.2-2.[address] [facility] Comment on above: Performed By: #### C BC ####[facility] Czcbybbkli8418 [place] [phone]. Silvino Clifton EO # 0.1 103/ul Normal 0.0-0.7 [facility] Comment on above: Performed By: #### C BC ####[facility] Znvsohimtm9851 [place] [phone]. Silvino Clifton Eosinophils/100 WBC (Bld) 1.3 % Normal 0.9-7.[address] [facility] Comment on above: Performed By: #### C BC ####[facility] [address] [place], [place] [address]Dr. Silvino Clifton Erythrocyte distribution width (RBC) [Ratio] 11.9 % Normal 11.0-15.[address] [facility] Comment on above: Performed By: #### C BC ####[facility] [address] [place], [place] [phone]. Silvino Clifton Hematocrit (Bld) [Volume fraction] 37.6 % Normal 36.0-48.[address] [facility] Comment on above: Performed By: #### C BC ####[facility] [address] [place], [place] [address]Dr. Silvino Clifton Hemoglobin (Bld) [Mass/Vol] 13.0 g/dL Normal 12.0-16.0 [facility] Comment on above: Performed By: #### C BC ####[facility] [address]zvbrtbymk[address] [place] [phone]. Silvino Clifton IG # 0.04 10e3/ul Critically high 0.00-0.03 [facility] Comment on above: Performed By: #### C BC ####[facility] [address]rozx[address] [place], [place] [address]Dr. Silvino Clifton IG % 0.5 % Normal 0.0-0.5 [facility] Comment on above: Performed By: #### C BC ####[facility] Nofykymfbs6195 [place] [phone]. Silvino Etienne LYMPH # 1.5 103/ul Normal 1.2-3.8 [facility] Comment on above: Performed By: #### C BC ####[facility] Csknkbibxm2057 [place] [phone]. Silvino Clifton Lymphocytes/100 WBC (Bld) 18.9 % Critically low 20.5-60.[address] [facility] Comment on above: Performed By: #### C BC ####[facility] Fsexzyqrab0968 [place] [phone]. Silvino Clifton MANUAL DIFF REQ NO Normal [facility] Comment on above: Performed By: #### C BC ####[facility] Bgamjmuygo4[address] [place] [phone]. Silvino Clifton MCH (RBC) [Entitic mass] 29.7 pg Normal 26.7-34.[address] [facility] Comment on above: Performed By: #### C BC ####[facility] Iqutgkaeld85[address] [place] [phone]. Suzyoriana Clifton MCHC (RBC) [Mass/Vol] 34.6 g/dL Normal 29.9-35.2 [facility] Comment on above: Performed By: #### C BC ####[facility] [address]kmvbokqtc9715 [place] [phone]. Silvino Clifton MCV (RBC) [Entitic vol] 85.8 fL Normal 81.0-99.[address] [facility] Comment on above: Performed By: #### C BC ####[facility] Eiyqgxhclt[address] [place] [phone]. Silvino Clifton MONO # 0.5 103/ul Normal 0.3-0.8 [facility] Comment on above: Performed By: #### C BC ####[facility] Ggqvghoaeh119[address] [place] [phone]. Silvino Clifton Monocytes/100 WBC (Bld) 6.1 % Normal 1.7-12.0 [facility] Comment on above: Performed By: #### C BC ####[facility] Zefhxyqtqx5207 [place] [phone]. Silvino Clifton NEUT # 5.8 103/ul Normal 1.4-6.5 [facility] Comment on above: Performed By: #### C BC ####[facility] Jdfofnrmgm8309 [place] [phone]. Silvino Clifton Neutrophils/100 WBC (Bld) 72.6 % Normal 43.0-75.[address] [facility] Comment on above: Performed By: #### C BC ####[facility] Qqiyaxdwqm58[address] [place] [phone]. Silvino Clifton Platelet mean volume (Bld) [Entitic vol] 10.7 fL Normal 9.5-13.[address] [facility] Comment on above: Performed By: #### C BC ####[facility] Kkstosdxbv7560 [place] [phone]. Silvino Clifton PLT 182 103/ul Normal 150-450 [facility] Comment on above: Performed By: #### C BC ####[facility] Ybtyjiicij32[address] [place] [phone]. Silvino Clifton RBC 4.38 106/ul Normal 4.20-5.40 [facility] Comment on above: Performed By: #### C BC ####[facility] Jmeoezknti64[address] [place] [phone]. Silvino Clifton WBC 8.0 103/ul Normal 4.0-11.0 [facility] Comment on above: Performed By: #### C BC ####[facility] Hukfbklfib[address] [place] [phone]. Silvino Clifton CT HEAD WO CONon 11-12-2021 [...] RAYNE JOHNSON Date: 2021-11-12 05:04 Normal [facility] ER URINE PROFILEon 2 Bilirubin Ql (U) Negative Normal NEGATIVE [facility] Comment on above: Performed By: #### U MICRO, ERUR #### [facility] [address] [place] [address] Dr. Silvino Clifton Clarity (U) CLEAR Normal CLEAR [facility] Comment on above: Performed By: #### U MICRO, ERUR #### [facility] [address] [place] [address] Dr. Silvino Clifton Color (U) LT. YELLOW Normal YELLOW [facility] Comment on above: Performed By: #### U MICRO, ERUR #### [facility] [address] [place] [address] Dr. Silvino Clifton ERUAHD A micrscopic examina tion will be performed if indicated. Normal [facility] Comment on above: Performed By: #### U MICRO, ERUR #### [facility] [address] [place] [address] Dr. Silvino Clifton Glucose Ql (U) Negative Normal NEGATIVE [facility] Comment on above: Performed By: #### U MICRO, ERUR #### [facility] [address] [place] [address] [address] Silvino Clifton Hemoglobin Ql (U) SMALL Abnormal NEGATIVE [facility] Comment on above: Performed By: #### U MICRO, ERUR #### [facility] [address] [place] [address] Dr. Silvino Clifton Ketones Ql (U) Negative Normal NEGATIVE [facility] Comment on above: Performed By: #### U MICRO, ERUR #### [facility] [address] [place] [address] Dr. Silvino Clifton LEUKOCYTES Negative Normal NEGATIVE [facility] Comment on above: Performed By: #### U MICRO, ERUR #### [facility] [address] [place] [address] [address] Silvino Clifton Nitrite Ql (U) Negative Normal NEGATIVE [facility] Comment on above: Performed By: #### U MICRO, ERUR #### [facility] [address] [place] [address] [address] Silvino Clifton pH (U) 7.0 [pH] Normal 5-[address] [facility] Comment on above: Performed By: #### U MICRO, ERUR #### [facility] [address] [place] [address] [address] Silvino Clifton SPEC GRAVITY <=1.005 Abnormal 1.005-<=1.[address] [facility] Comment on above: Performed By: #### U MICRO, ERUR #### [facility] [address] [place] [address] [address] Silvino Clifton UA PROTEIN Negative Normal NEGATIVE/ TRACE [facility] Comment on above: Performed By: #### U MICRO, ERUR #### [facility] [address] [place] [address] [address] Silvino Clifton UR MICRO IND INDICATED Normal [facility] Comment on above: Performed By: #### U MICRO, ERUR #### [facility] [address] [place] [address] [address] Silvino Clifton Urobilinogen Qn (U) 0.2 {Tyrell'U}/dL Normal 0.2 - 1. [address] [facility] Comment on above: Performed By: #### U MICRO, ERUR #### [facility] [address] [address] [address] Silvino Clifton PROF 14(COMP METB)on 022 Albumin [Mass/Vol] 4.2 g/dL Normal 3.4-5.0 [facility] Comment on above: Performed By: #### C MP, HSTROPN ####[facility] [address] [address]Dr. Silvino Clifton Albumin/Globulin [Mass ratio] 1.2 {ratio} Normal [facility] Comment on above: Performed By: #### C MAGGIE, HSTROPN ####[facility] [address] [address]Dr. Silvino Clifton ALP [Catalytic activity/Vol] 65 U/L Normal 46-[address] [facility] Comment on above: Performed By: #### C MAGGIE, HSTROPN ####[facility] [address] [address]Dr. Silvino Etienne ALT [Catalytic activity/Vol] 21 U/L Normal 14-[address] [facility] Comment on above: Performed By: #### C MAGGIE, HSTROPN ####[facility] [address] [address]Dr. Silvino Clifton Anion gap [Moles/Vol] 12.5 mmol/L Normal [facility] Comment on above: Performed By: #### C MAGGIE, HSTROPN ####[facility] [address] [place], [place] [address]Dr. Silvino Clifton AST [Catalytic activity/Vol] 17 U/L Normal 15-[address] [facility] Comment on above: Performed By: #### C MAGGIE, HSTROPN ####[facility] [address] [place], [place] [address]Dr. Suzyoriana Clifton Bilirubin [Mass/Vol] 0.5 mg/dL Normal 0.2-1.[address] [facility] Comment on above: Performed By: #### C MAGGIE, HSTROPN ####[facility] [address] [place], [place] [address]Dr. Silvino Etienne Calcium [Mass/Vol] 9.0 mg/dL Normal 8.5-10.1 [facility] Comment on above: Performed By: #### C MAGGIE, HSTROPN ####[facility] [address] [place], [place] [address]Dr. Suzyoriana Clifton Chloride [Moles/Vol] 100 mmol/L Normal 98-107 [facility] Comment on above: Performed By: #### C MAGGIE, HSTROPN ####[facility] [address] [place], [place] [address]Dr. Silvino Clifton CO2 [Moles/Vol] 26.8 mmol/L Normal 21.0-32.0 [facility] Comment on above: Performed By: #### C MAGGIE, HSTROPN ####[facility] [address] [address]Dr. Silvino Clifton Creatinine [Mass/Vol] 0.71 mg/dL Normal 0.55-1.02 [facility] Comment on above: Performed By: #### C MAGGIE, HSTROPN ####[facility] [address] [id number]. Silvino Clifton EGFR-AF KITTITIAN >60 Normal >=60 [facility] Comment on above: Performed By: #### C MAGGIE, HSTROPN ####[facility] [address] [address]Dr. Silvino Clifton EGFR-NON AF KITTITIAN >60 Normal >=[address] [facility] Comment on above: Performed By: #### C MAGGIE, HSTROPN ####[facility] [address] [address]Dr. Silvino Clifton Globulin (S) [Mass/Vol] 3.4 g/dL Normal [facility] Comment on above: Performed By: #### C MAGGIE, HSTROPN ####[facility] [address] [address]Dr. Silvino Clifton Glucose [Mass/Vol] 185 mg/dL Critically high 74-106 [facility] Comment on above: Performed By: #### C MAGGIE, HSTROPN ####[facility] [address] [address]Dr. Silvino Clifton Potassium [Moles/Vol] 3.3 mmol/L Critically low 3.5-5.1 [facility] Comment on above: Performed By: #### C MAGGIE, HSTROPN ####[facility] [address] [address]Dr. Suzyoriana Clifton Protein [Mass/Vol] 7.6 g/dL Normal 6.4-8.2 [facility] Comment on above: Performed By: #### C MP, HSTROPN ####[facility] [address] [id number]. Silvino Clifton Sodium [Moles/Vol] 136 mmol/L Normal 136-145 [facility] Comment on above: Performed By: #### C MP, HSTROPN ####[facility] [address] [address]Dr. Silvino Clifton Urea nitrogen [Mass/Vol] 10.0 mg/dL Normal 7.0-18.[address] [facility] Comment on above: Performed By: #### C MP, HSTROPN ####[facility] [address] [address]Dr. Silvino Clifton Urea nitrogen/Creatinine [Mass ratio] 14.1 mg/mg Normal [facility] Comment on above: Performed By: #### C MP, HSTROPN ####[facility] [address] [address]Dr. Silvino Clifton TROPONIN, HIGH SENSITIVITYon 11-12-2021 HSTROP 25.0 pg/mL Normal 4.0-51.[address] [facility] Comment on above: Result Comment: CUT- OFF POINTS HAVE BEEN ESTABLISHED BASED ON THE FOURTH UNIVERSAL DEFINITIONS OF MYOCARDIAL INFARCTION. THE UPPER REFERENCE LIMIT (URL) OF TROPONIN, DEFINED THE 99TH PERCENTILE OF cTnI DISTRIBUTION IN A REFERENCE POPULATION, HAS BEEN CONFIRMED THE DECISION THRESHOLD FOR TX DIAGNOSIS. Performed By: #### C MAGGIE, HSTROPN #### [facility] [address] [place] [address] Dr. Silvino Clifton URINE MICROSCOPIC ONLYon BACTERIA NONE SEEN Normal NONE SEEN [facility] Comment on above: Performed By: #### U MICRO, ERUR #### [facility] [address] [address] [address] Silvino Clifton Bacteria identified Cx Nom (U) NOT INDICATED Normal [facility] Comment on above: Performed By: #### U MICRO, ERUR #### [facility] [address] [place] [address] Dr. Silvino Clifton CAST NONE SEEN Normal NONE SEEN [facility] Comment on above: Performed By: #### U MICRO, ERUR #### [facility] [address] [address] [address] Silvino Clifton Crystals LM Nom (Urine sed) NONE SEEN Normal NONE SEEN [facility] Comment on above: Performed By: #### U MICRO, ERUR #### [facility] [address] [place] [address] Dr. Silvino Clifton Epithelial cells LM Ql (Urine sed) RARE Normal NONE SEEN /RARE [facility] Comment on above: Performed By: #### U MICRO, ERUR #### [facility] [address] [place] [address] Dr. Silvino Clifton MUCOUS NONE SEEN Normal NONE SEEN [facility] Comment on above: Performed By: #### U MICRO, ERUR #### [facility] [address] [place] [address] Dr. Silvino Clifton RBC 2-5 Abnormal 0-2 [facility] Comment on above: Performed By: #### U MICRO, ERUR #### [facility] [address] [place] [address] Dr. Silvino Clifton WBC NONE SEEN Normal NONE SEEN [facility] Comment on above: Performed By: #### U MICRO, ERUR #### [facility] [address] [place] [address] Dr. Silvino Clifton CBC (INCLUDES DIFF/PLT)on Basophils (Bld) [#/Vol] 0.041 10*3/uL Normal 0-200 [facility] Comment on above: Performed By: #### 6 399, 622, 927 #### [facility] [address], [address] [place], [place] [id number] [employer] Operator: Scott Nichols MD Basophils/100 WBC (Bld) 0.7 % Normal [facility] Comment on above: Performed By: #### 6 399, 622, 927 #### [facility] [address], [address] [place], [place] [id number] [employer] Operator: Scott Nichols MD Eosinophils (Bld) [#/Vol] 0.077 10*3/uL Normal 15-500 [facility] Comment on above: Performed By: #### 6 399, 622, 927 #### [facility] of [address] [address] [employer] Operator: Scott Nichols MD Eosinophils/100 WBC (Bld) 1.3 % Normal [facility] Comment on above: Performed By: #### 6 399, 622, 927 #### [facility] [address] [address] [employer] Operator: Scott Nichols MD Erythrocyte distribution width (RBC) [Ratio] 12.3 % Normal 11.0-15.0 [facility] Comment on above: Performed By: #### 6 399, 622, 927 #### [facility] [address] [address] [employer] Operator: Scott Nichols MD Hematocrit (Bld) [Volume fraction] 40.2 % Normal 35.0-45.0 [facility] Comment on above: Performed By: #### 6 399, 622, 927 #### [facility] [address] [address] [employer] Operator: Scott Nichols MD Hemoglobin (Bld) [Mass/Vol] 13.8 g/dL Normal 11.7-15.5 [facility] Comment on above: Performed By: #### 6 399, 622, 927 #### [facility] [address] [place] [address] [employer] Operator: Scott Nichols MD Lymphocytes (Bld) [#/Vol] 1.682 10*3/uL Normal 850-3900 [facility] Comment on above: Performed By: #### 6 399, 622, 927 #### [facility] [address] [place] [address] [employer] Operator: Scott Nichols MD Lymphocytes/100 WBC (Bld) 28.5 % Normal [facility] Comment on above: Performed By: #### 6 399, 622, 927 #### [facility] of [address] [address] [employer] Operator: Scott Nichols MD MCH (RBC) [Entitic mass] 29.9 pg Normal 27.0-33.0 [facility] Comment on above: Performed By: #### 6 399, 622, 927 #### [facility] of [address] [address] [employer] Operator: Scott Nichols MD MCHC (RBC) [Mass/Vol] 34.3 g/dL Normal 32.0-36.0 [facility] Comment on above: Performed By: #### 6 399, 622, 927 #### [facility] of [address] [address] [employer] Operator: Scott Nichols MD MCV (RBC) [Entitic vol] 87.0 fL Normal 80.0-100.0 [facility] Comment on above: Performed By: #### 6 399, 622, 927 #### [facility] of [address] [address] [employer] Operator: Scott Nihcols MD Monocytes (Bld) [#/Vol] 0.407 10*3/uL Normal 200-950 [facility] Comment on above: Performed By: #### 6 399, 622, 927 #### [facility] of [address] [address] [employer] Operator: Scott Nichols MD Monocytes/100 WBC (Bld) 6.9 % Normal [facility] Comment on above: Performed By: #### 6 399, 622, 927 #### [facility] of [address] [address] [employer] Operator: Scott Nichols MD Neutrophils (Bld) [#/Vol] 3.693 10*3/uL Normal 1312-0664 [facility] Comment on above: Performed By: #### 6 399, 622, 927 #### [facility] of [address] [address] [employer] Operator: Scott Nichols MD Neutrophils/100 WBC (Bld) 62.6 % Normal [facility] Comment on above: Performed By: #### 6 399, 622, 927 #### [facility] [address] [address] [employer] Operator: Scott Nichols MD Platelet mean volume (Bld) [Entitic vol] 11.9 fL Normal 7.5-12.5 [facility] Comment on above: Performed By: #### 6 399, 622, 927 #### [facility] of [address] [address] [employer] Operator: Scott Nichols MD Platelets (Bld) [#/Vol] 195 10*3/uL Normal 140-400 [facility] Comment on above: Performed By: #### 6 399, 622, 927 #### [facility] of [address] [address] [employer] Operator: Scott Nichols MD RBC (Bld) [#/Vol] 4.62 10*6/uL Normal 3.80-5.10 [facility] Comment on above: Performed By: #### 6 399, 622, 927 #### [facility] [address] [address] [employer] Operator: Scott Nichols MD WBC (Bld) [#/Vol] 5.9 10*3/uL Normal 3.8-10.8 [facility] Comment on above: Performed By: #### 6 399, 622, 927 #### [facility] of [address] [address] [employer] Operator: Scott Nichols MD MAGNESIUMon 09-10-2021 Magnesium [Mass/Vol] 1.7 mg/dL Normal 1.5-2.5 [facility] Comment on above: Order Comment: FASTI NG:UNKNOWN FASTING: UNKNOWN Performed By: #### 6 399, 622, 927 #### [facility] of [address] [id number] [employer] Operator: Scott Nichols MD VITAMIN B12on 09-10-2021 Cobalamin [...] 399, 622, 927 #### [facility] [address], [address] [place] [address] [employer] Operator: Scott Nichols MD ALBUMIN, RANDOM URINE W/CREA TININEon 07-29-2021 ALBUMIN, URINE 2.6 mg/dL Normal See Note: [facility] Comment on above: Result Comment: Refe rence Range: Reference Range Not established Performed By: #### 1 0231, 7600, 6517 #### [facility] [address], [address] [place] [address] [employer] Operator: Scott Nichols MD ALBUMIN/CREATININE RATIO, RANDOM [...] 0231, 7600, 6517 #### [facility] [address], [address] [place] [address] [employer] Operator: Scott Nichols MD Creatinine (U) [Mass/Vol] 53 mg/dL Normal 20-275 [facility] Comment on above: Performed By: #### 1 0231, 7600, 6517 #### [facility] [address], [address] [place] [address] [employer] Operator: Scott Nichols MD COMPREHENSIVE METABOLIC PANE Navid 07-29-2021 Albumin [Mass/Vol] 4.6 g/dL Normal 3.6-5.1 [facility] Comment on above: Performed By: #### 1 0231, 0, 6517 #### [facility] of [address], [address] [place] [address] [employer] Operator: Scott Nichols MD Albumin/Globulin [Mass ratio] 1.6 {ratio} Normal 1.0-2.5 [facility] Comment on above: Performed By: #### 1 0231, 0, 6517 #### [facility] of [address], [address] [place] [address] [employer] Operator: Scott Nichols MD ALP [Catalytic activity/Vol] 55 U/L Normal 37-153 [facility] Comment on above: Performed By: #### 1 023, 7599, 6517 #### [facility] of [address] [place] [address] [employer] Operator: Scott Nichols MD ALT [Catalytic activity/Vol] 11 U/L Normal 6-29 [facility] Comment on above: Result Comment: NO C OLLECTION DATE RECEIVED. WE HAVE USED THE DATE THE SPECIMEN WAS RECEIVED BY THIS LABORATORY THE COLLECTION DATE. IF THIS IS INCORRECT, PLEASE CONTACT CLIENT SERVICES. PHONE NUMBER: [phone] Performed By: #### 1 230, 7599, 6517 #### [facility] [address] [place] [address] [employer] Operator: Scott Nichols MD AST [Catalytic activity/Vol] 11 U/L Normal 10-35 [facility] Comment on above: Performed By: #### 1 023, 7599, 6517 #### [facility] [address] [place] [address] [employer] Machine Operator: Scott Nichols MD Bilirubin [Mass/Vol] 0.6 mg/dL Normal 0.2-1.2 [facility] Comment on above: Performed By: #### 1 023, 7599, 6517 #### [facility] of [address] [place] [address] [employer] Machine Operator: Scott Nichols MD BUN/CREATININE RATIO NOT APPLICABLE Normal 6-22 [facility] Comment on above: Performed By: #### 1 0231, 7599, 6517 #### [facility] of [address], [address] [place] [address] [employer] Operator: Scott Nichols MD Calcium [Mass/Vol] 9.5 mg/dL Normal 8.6-10.4 [facility] Comment on above: Performed By: #### 1 023, 7599, 6517 #### [facility] of [address], [address] [place] [address] [employer] Machine Operator: Scott Nichols MD Chloride [Moles/Vol] 105 mmol/L Normal 98-110 [facility] Comment on above: Performed By: #### 1 230, 7599, 6517 #### [facility] of [address], [address] [place] [address] [employer] Operator: Scott Nichols MD CO2 [Moles/Vol] 30 mmol/L Normal 20-32 [facility] Comment on above: Performed By: #### 1 230, 7599, 6517 #### [facility] [address], [address] [place] [address] [employer] Machine Operator: Scott Nichols MD Creatinine [Mass/Vol] 0.62 mg/dL Normal 0.60-0.93 [facility] Comment on above: Result Comment: For patients >49 years of age, the reference limit for Creatinine is approximately 13% higher for people identified as -Estonian. Performed By: #### 1 230, 7599, 6517 #### [facility] of [address], [address] [place] [address] [employer] Machine Operator: Scott Nichols MD eGFR NON-AFR. KITTITIAN 91 mL/min/1.73m2 Normal > OR = 60 [facility] Comment on above: Performed By: #### 1 023, 7599, 6517 #### [facility] [address] [address] [employer] Machine Operator: Scott Nichols MD GFR/1.73 sq M.predicted among blacks MDRD (S/P/Bld) [Vol rate/Area] 106 mL/min/{1.73_m2} Normal > OR = 60 [facility] Comment on above: Performed By: #### 1 230, 7599, 6517 #### [facility] [place] [address] [employer] Machine Operator: Scott Nichols MD Globulin (S) [Mass/Vol] 2.8 g/dL Normal 1.9-3.7 [facility] Comment on above: Performed By: #### 1 230, 7599, 17 #### [facility] [place] [address] [employer] Machine Operator: Scott Nichols MD Glucose [Mass/Vol] 124 mg/dL High 65-99 [facility] Comment on above: Result Comment: Fasting reference interval For someone without known diabetes, a glucose value between 100 and 125 mg/dL is consistent with prediabetes and should be confirmed with a follow-up test. Performed By: #### 1 230, 7599, 6517 #### [facility] [place] [address] [employer] Machine Operator: Scott Nichols MD Potassium [Moles/Vol] 3.7 mmol/L Normal 3.5-5.3 [facility] Comment on above: Performed By: #### 1 230, 7599, 17 #### [facility] [place] [address] [employer] Machine Operator: Scott Nichols MD Protein [Mass/Vol] 7.4 g/dL Normal 6.1-8.1 [facility] Comment on above: Performed By: #### 1 230, 7599, 6517 #### [facility] [place] [address] [employer] Machine Operator: Scott Nichols MD Sodium [Moles/Vol] 142 mmol/L Normal 135-146 [facility] Comment on above: Performed By: #### 1 230, 7599, 6517 #### [facility] [address], [address] [place] [address] [employer] Machine Operator: Scott Nichols MD Urea nitrogen [Mass/Vol] 8 mg/dL Normal 7-25 [facility] Comment on above: Performed By: #### 1 023, 7599, 6517 #### [facility] [address], [address] [place] [address] [employer] Machine Operator: Scott Nichols MD LIPID PANEL, [facility] 03-0 Cholesterol [Mass/Vol] 156 mg/dL Normal <200 [facility] Comment on above: Performed By: #### 1 023, 7599, 6517 #### [facility] [address], [address] [place] [address] [employer] Machine Operator: Scott Nichols MD Cholesterol in HDL [Mass/Vol] 67 mg/dL Normal > OR = 50 [facility] Comment on above: Performed By: #### 1 230, 7599, 6517 #### [facility] [address], [address] [place] [address] [employer] Machine Operator: Scott Nichols MD Cholesterol in LDL [...] LDL-C. Placido VENTURA et al. MACKENZIE. 2013;310(19): 5026-2680 (http://education.[employer]/faq/ORP415) Performed By: #### 1 230, 7599, 6517 #### [facility] [address], [address] [place] [address] [employer] Machine Operator: Scott Nichols MD Cholesterol.total/Ch olesterol in HDL [Mass ratio] 2.3 {ratio} Normal <5.0 [facility] Comment on above: Performed By: #### 1 230, 7599, 6517 #### [facility] [place] [address] [employer] Machine Operator: Scott Nichols MD NON HDL CHOLESTEROL 89 mg/dL (calc) Normal <130 [facility] Comment on above: Result Comment: For patients with diabetes plus 1 major ASCVD risk factor, treating to a non-HDL-C goal of <100 mg/dL (LDL-C of <70 mg/dL) is considered a therapeutic option. Performed By: #### 1 023, 7599, 6517 #### [facility] [place] [address] [employer] Machine Operator: Scott Nichols MD Triglyceride [Mass/Vol] 85 mg/dL Normal <150 [facility] Comment on above: Performed By: #### 1 230, 7599, 6517 #### [facility] [place] [address] [employer] Machine Operator: Scott Nichols MD REFLEXIVE URINE CULTUREon REFLEXIVE URINE CULTURE Normal [facility] Comment on above: Result Comment: NO C ULTURE INDICATED Performed By: #### 3 020 #### [facility] [place] [address] Fur Machine Operator: Scott Nichols MD URINALYSIS, COMPLETE W/REFLE X TO CULTUREon 02-06-2021 Appearance (U) CLEAR Normal CLEAR [facility] Comment on above: Performed By: #### 3 020 #### [facility] of [place] [address] [employer] Machine Operator: Scott Nichols MD BACTERIA NONE SEEN Normal NONE SEEN [facility] Comment on above: Performed By: #### 3 020 #### [facility] [place] [address] [employer] Machine Operator: Scott Nichols MD Bilirubin Ql (U) Negative Normal NEGATIVE [facility] Comment on above: Performed By: #### 3 020 #### [facility] [place] [address] [employer] Machine Operator: Scott Nichols MD Color (U) YELLOW Normal YELLOW [facility] Comment on above: Performed By: #### 3 020 #### [facility] [place] [address] [employer] Machine Operator: Scott Nichols MD Glucose Ql (U) Negative Normal NEGATIVE [facility] Comment on above: Performed By: #### 3 020 #### [facility] [place] [address] [employer] Machine Operator: Scott Nichols MD HYALINE CAST NONE SEEN Normal NONE SEEN [facility] Comment on above: Performed By: #### 3 020 #### [facility] [place] [address] [employer] Machine Operator: Scott Nichols MD Ketones Ql (U) Negative Normal NEGATIVE [facility] Comment on above: Performed By: #### 3 020 #### [facility] [place] [address] [employer] Machine Operator: Scott Nichols MD Leukocyte esterase Test strip Ql (U) Negative Normal NEGATIVE [facility] Comment on above: Performed By: #### 3 020 #### [facility] [place] [address] [employer] Machine Operator: Scott Nichols MD Nitrite Ql (U) Negative Normal NEGATIVE [facility] Comment on above: Performed By: #### 3 020 #### [facility] [place] [address] [employer] Operator: Scott Nichols MD OCCULT BLOOD TRACE Abnormal NEGATIVE [facility] Comment on above: Performed By: #### 3 020 #### [facility] [place] [address] [employer] Machine Operator: Scott Nichols MD pH (U) 6.5 [pH] Normal 5.0-8.0 [facility] Comment on above: Performed By: #### 3 020 #### [facility] of [address], [address] [place] [address] [employer] Operator: Scott Nichols MD Protein Ql (U) Negative Normal NEGATIVE [facility] Comment on above: Performed By: #### 3 020 #### [facility] of [address], [address] [place] [address] [employer] Machine Operator: Scott Nichols MD RBC NONE SEEN Normal < OR = 2 [facility] Comment on above: Performed By: #### 3 020 #### [facility] of [address], [address] [place] [address] [employer] Machine Operator: Scott Nichols MD Specific gravity (U) [Rel density] 1.008 Normal 1.001-1.035 [facility] Comment on above: Performed By: #### 3 020 #### [facility] of [place] [address] [employer] Machine Operator: Scott Nichols MD SQUAMOUS EPITHELIAL CELLS NONE SEEN Normal < OR = 5 [facility] Comment on above: Performed By: #### 3 020 #### [facility] of [place] [address] Fur Machine Operator: Scott Nichols MD WBC NONE SEEN Normal < OR = 5 [facility] Comment on above: Performed By: #### 3 020 #### [facility] of [place] [address] [employer] Machine Operator: Scott Nichols MD BASIC METABOLIC PANEL 12-23 BUN/CREATININE RATIO NOT APPLICABLE Normal 6-22 [facility] Comment on above: Order Comment: FASTI NG:YESFASTING: YES Performed By: #### 3 020 #### [facility] of [place] [address] [employer] Machine Operator: Scott Nichols MD Calcium [Mass/Vol] 9.6 mg/dL Normal 8.6-10.4 [facility] Comment on above: Order Comment: FASTI NG:YESFASTING: YES Performed By: #### 3 020 #### [facility] of [address] [place] [address] [employer] Operator: Scott Nichols MD Chloride [Moles/Vol] 106 mmol/L Normal 98-110 [facility] Comment on above: Order Comment: FASTI NG:YESFASTING: YES Performed By: #### 3 020 #### [facility] [address], [address] [place] [address] [employer] Machine Operator: Scott Nichols MD CO2 [Moles/Vol] 29 mmol/L Normal 20-32 [facility] Comment on above: Order Comment: FASTI NG:YESFASTING: YES Performed By: #### 3 020 #### [facility] [place] [address] Fur Machine Operator: Scott Nichols MD Creatinine [Mass/Vol] 0.69 mg/dL Normal 0.50-0.99 [facility] Comment on above: Order Comment: FASTI NG:YESFASTING: YES Result Comment: For patients >49 years of age, the reference limit for Creatinine is approximately 13% higher for people identified as -E[place]ian. Performed By: #### 3 020 #### [facility] [place] [address] [employer] Machine Operator: Scott Nichols MD eGFR NON-AFR. KITTITIAN 89 mL/min/1.73m2 Normal > OR = 60 [facility] Comment on above: Order Comment: FASTI NG:YESFASTING: YES Performed By: #### 3 020 #### [facility] [place] [address] [employer] Operator: Scott Nichols MD GFR/1.73 sq M.predicted among blacks MDRD (S/P/Bld) [Vol rate/Area] 103 mL/min/{1.73_m2} Normal > OR = 60 [facility] Comment on above: Order Comment: FASTI NG:YESFASTING: YES Performed By: #### 3 020 #### [facility] [address], [address] [place] [address] Fur Machine Operator: Scott Nichols MD Glucose [Mass/Vol] 139 mg/dL High 65-99 [facility] Comment on above: Order Comment: FASTI NG:YESFASTING: YES Result Comment: Fasting reference interval For someone without known diabetes, a glucose value >125 mg/dL indicates that they may have diabetes and this should be confirmed with a follow-up test. Performed By: #### 3 020 #### [facility] [place] [address] [employer] Operator: Scott Nichols MD Potassium [Moles/Vol] 3.9 mmol/L Normal 3.5-5.3 [facility] Comment on above: Order Comment: FASTI NG:YESFASTING: YES Performed By: #### 3 020 #### [facility] [place] [address] [employer] Machine Operator: Scott Nichosl MD Sodium [Moles/Vol] 140 mmol/L Normal 135-146 [facility] Comment on above: Order Comment: FASTI NG:YESFASTING: YES Performed By: #### 3 020 #### [facility] [place] [address] [employer] Operator: Scott Nichols MD Urea nitrogen [Mass/Vol] 11 mg/dL Normal 7-25 [facility] Comment on above: Order Comment: FASTI NG:YESFASTING: YES Performed By: #### 3 020 #### [facility] [place] [address] [employer] Machine Operator: Scott Nichols MD Vital Signs Date Time Vital Sign Value Performing Clinician Facility 03-07-2024 09:50-0400 Body height 152.4 cm Laura Bullock MD Work Phone: [facility] 03-07-2024 09:50-0400 Body mass index (BMI) [Ratio] 25.35 kg/m2 Laura Bullock MD Work Phone: [facility] 03-07-2024 09:50-0400 Body weight 58.88 kg Laura Bullock MD Work Phone: [facility] 12-15-2023 08:54-0400 Blood Pressure Location Norma Lue [facility] 12-15-2023 08:54-0400 Body temperature 98.6 [degF] Norma Lue [facility] 12-15-2023 08:54-0400 Diastolic blood pressure 84 mm[Hg] Norma Lue [facility] 12-15-2023 08:54-0400 Heart rate 77 /min Norma Lue [facility] 12-15-2023 08:54-0400 Respiratory rate 16 /min Norma Lue [facility] 12-15-2023 08:54-0400 Systolic blood pressure 135 mm[Hg] Norma Lue [facility] 08-23-2023 15:14-0400 Body height 157.5 cm Joaquin Furlong DO Work Phone: [facility] 08-23-2023 15:14-0400 Body mass index (BMI) [Ratio] 23.58 kg/m2 Joaquin Furlong DO Work Phone: [facility] 08-23-2023 15:14-0400 Body temperature 97.59 [degF] Joaquin Furlong DO Work Phone: [facility] 08-23-2023 15:14-0400 Body weight 58.47 kg Joaquin Furlong DO Work Phone: [facility] 08-23-2023 15:14-0400 Diastolic blood pressure 60 mm[Hg] Joaquin Furlong DO Work Phone: [facility] 08-23-2023 15:14-0400 Heart rate 77 /min [facility]long [facility] 08-23-2023 15:14-0400 Respiratory rate 18 /min Joaquin Furlong DO Work Phone: [facility] 08-23-2023 15:14-0400 SaO2% (BldA) [Mass fraction] 98 % Joaquin Furlong DO Work Phone: [facility] 08-23-2023 15:14-0400 Systolic blood pressure 110 mm[Hg] Joaquin Furlong DO Work Phone: [facility] 07-06-2023 15:49-0500 Body height 157.5 cm Joaquin Furlong DO Work Phone: [facility] 07-06-2023 15:49-0500 Body mass index (BMI) [Ratio] 24.23 kg/m2 Joaquin Furlong DO Work Phone: [facility] 07-06-2023 15:49-0500 Body temperature 97.81 [degF] Joaquin Furlong DO Work Phone: [facility] 07-06-2023 15:49-0500 Body weight 60.1 kg Joaquin Furlong DO Work Phone: [facility] 07-06-2023 15:49-0500 Diastolic blood pressure 70 mm[Hg] Joaquin Furlong DO Work Phone: [facility] 07-06-2023 15:49-0500 Heart rate 85 /min Joaquin Furlong DO Work Phone: [facility] 07-06-2023 15:49-0500 SaO2% (BldA) [Mass fraction] 98 % Joaquin Furlong DO Work Phone: [facility] 07-06-2023 15:49-0500 Systolic blood pressure 122 mm[Hg] Joaquin Furlong DO Work Phone: [employer] 06-09-2023 09:30-0500 Body height 151.13 cm Gino Carrasquillo Other [employer] Other 06-09-2023 09:30-0500 Body mass index (BMI) [Ratio] 25.62 kg/m2 Gino Carrasquillo Other [employer] Other 06-09-2023 09:30-0500 Body weight 58.51 kg Gino Carrasquillo Other [employer] Other 06-09-2023 09:30-0500 Diastolic blood pressure 76 mm[Hg] Gino Carrasquillo Other [employer] Other 06-09-2023 09:30-0500 Systolic blood pressure 122 mm[Hg] Gino Carrasquillo Other [employer] Other 04-13-2023 13:45-0500 Body height 151.13 cm Gino Carrasquillo Other [employer] Other 04-13-2023 13:45-0500 Body mass index (BMI) [Ratio] 25.7 kg/m2 Gino Carrasquillo Other [employer] Other 04-13-2023 13:45-0500 Body weight 58.7 kg Gino Carrasquillo Other [employer] Other 04-13-2023 13:45-0500 Diastolic blood pressure 70 mm[Hg] Gino Carrasquillo Other [employer] Other 04-13-2023 13:45-0500 SaO2% (BldA) [Mass fraction] 97 % Gino Carrasquillo Other [employer] Other 04-13-2023 13:45-0500 Systolic blood pressure 108 mm[Hg] Gino Carrasquillo Other [employer] Other 02-16-2023 13:30-0400 Body height 151.13 cm Gino Carrasquillo Other [employer] Other 02-16-2023 13:30-0400 Body mass index (BMI) [Ratio] 26.01 kg/m2 Gino Carrasquillo Other [employer] Other 02-16-2023 13:30-0400 Body weight 59.42 kg Gino Carrasquillo Other [employer] Other 02-16-2023 13:30-0400 Diastolic blood pressure 80 mm[Hg] Gino Carrasquillo Other [employer] Other 02-16-2023 13:30-0400 SaO2% (BldA) [Mass fraction] 97 % Gino Carrasquillo Other [employer] Other 02-16-2023 13:30-0400 Systolic blood pressure 122 mm[Hg] Gino Carrasquillo Other [employer] Other 02-04-2023 14:00-0400 Body height 151.13 cm Gino Carrasquillo Other [employer] Other 02-04-2023 14:00-0400 Body mass index (BMI) [Ratio] 26.29 kg/m2 Gino Carrasquillo Other [employer] Other 02-04-2023 14:00-0400 Body weight 60.06 kg Gino Carrasquillo Other [employer] Other 02-04-2023 14:00-0400 Diastolic blood pressure 77 mm[Hg] Gino Carrasquillo Other [employer] Other 02-04-2023 14:00-0400 Systolic blood pressure 146 mm[Hg] Gino Carrasquillo Other [employer] Other 01-28-2023 09:45-0400 Body height 151.13 cm Gino Carrasquillo Other [employer] Other 01-28-2023 09:45-0400 Body mass index (BMI) [Ratio] 26.29 kg/m2 Gino Carrasquillo Other [employer] Other 01-28-2023 09:45-0400 Body weight 60.06 kg Gino Carrasquillo Other [employer] Other 01-28-2023 09:45-0400 Diastolic blood pressure 79 mm[Hg] Gnio Carrasquillo Other [employer] Other 01-28-2023 09:45-0400 Systolic blood pressure 126 mm[Hg] Gino Carrasquillo Other [employer] Other 09-08-2022 15:00-0400 Body height 151.13 cm Gino Carrasquillo Other [employer] Other 09-08-2022 15:00-0400 Body mass index (BMI) [Ratio] 26.61 kg/m2 Gino Carrasquillo Other [employer] Other 09-08-2022 15:00-0400 Body weight 60.78 kg Gino Carrasquillo Other [employer] Other 09-08-2022 15:00-0400 Diastolic blood pressure 78 mm[Hg] Gino Carrasquillo Other [employer] Other 09-08-2022 15:00-0400 SaO2% (BldA) [Mass fraction] 97 % Gino Carrasquillo Other [employer] Other 09-08-2022 15:00-0400 Systolic blood pressure 118 mm[Hg] Gino Carrasquillo Other [employer] Other 08-27-2022 14:30-0400 Body height 151.13 cm Gino Carrasquillo Other [employer] Other 08-27-2022 14:30-0400 Body mass index (BMI) [Ratio] 26.41 kg/m2 Gino Carrasquillo Other [employer] Other 08-27-2022 14:30-0400 Body weight 60.33 kg Gino Carrasquillo Other [employer] Other 08-27-2022 14:30-0400 Diastolic blood pressure 74 mm[Hg] Gino Carrasquillo Other [employer] Other 08-27-2022 14:30-0400 SaO2% (BldA) [Mass fraction] 95 % Gino Carrasquillo Other [employer] Other 08-27-2022 14:30-0400 Systolic blood pressure 120 mm[Hg] Gino Carrasquillo Other [employer] Other 08-10-2022 14:30-0400 Body height 151.13 cm Gino Carrasquillo Other [employer] Other 08-10-2022 14:30-0400 Body mass index (BMI) [Ratio] 26.81 kg/m2 Gino Carrasquillo Other [employer] Other 03-20-2023 14:30-0400 Body weight 61.24 kg Gino Carrasquillo Other [employer] Other 08-10-2022 14:30-0400 Diastolic blood pressure 74 mm[Hg] Gino Carrasquillo Other [employer] Other 08-10-2022 14:30-0400 SaO2% (BldA) [Mass fraction] 97 % Gino Carrasquillo Other [employer] Other 08-10-2022 14:30-0400 Systolic blood pressure 126 mm[Hg] Gino Carrasquillo Other [employer] Other 11-26-2021 08:12-0400 Blood Pressure Location Norma Gleze [facility] [employer] 11-26-2021 08:12-0400 Diastolic blood pressure 82 mm[Hg] Norma Lue [facility] [employer] 11-26-2021 08:12-0400 Heart rate 66 /min [facility] 11-26-2021 08:12-0400 Systolic blood pressure 139 mm[Hg] Norma Lue [facility] [employer] Encounters Encounter Date Encounter Type Care Provider Facility Start: 04-05-2024 End: 04-05-2024 ambulatory Norma Pulido Facility:[facility] Start: 04-05-2024 End: 04-05-2024 Patient encounter procedure Norma Pulido [facility] Start: 03-07-2024 End: 03-07-2024 Office outpatient new 30 minutes Laura Bullock MD Work Phone: [facility] Comment on above: Skin lesion (Primary Dx); Neoplasm of uncertain behavior of skin Start: 03-07-2024 End: 03-07-2024 [facility] Start: 02-25-2024 End: 02-25-2024 Orders Only [facility] DO Work Phone: [facility] Comment on above: Type 2 diabetes ruma itus without complication, without long- term current use of insulin ([facility] (Primary Dx) Start: 02-21-2024 End: 02-21-2024 ambulatory [facility] Start: 12-31-2023 End: 12-31-2023 ambulatory [facility] Start: 12-15-2023 End: 12-15-2023 Lab Drop off Norma Pulido [facility] Start: 12-15-2023 End: 12-15-2023 ambulatory Norma Pulido Facility:[facility] Start: 12-15-2023 End: 12-15-2023 Patient encounter procedure Norma Pulido [facility] Start: 11-16-2023 End: 11-16-2023 ambulatory [facility] Start: 11-09-2023 End: 11-09-2023 ambulatory [facility] Start: 10-25-2023 End: 10-25-2023 ambulatory [facility] Start: 10-07-2023 End: 10-07-2023 ambulatory [facility] Start: 09-14-2023 End: 09-14-2023 ambulatory [facility] Start: 08-26-2023 Refill Suki Maria C [facility] Sonu swan [facility] Start: 08-23-2023 End: 08-23-2023 Office outpatient visit 15 minutes Joaquin Devine DO Work Phone: [facility] Comment on above: Type 2 diabetes ruma itus without complication, without long- term current use of insulin [place] (Primary Dx); Hyperlipidemia, unspecified hyperlipidemia type; Acute deep vein thrombosis (DVT) of calf muscle vein of right lower extremity ([facility] Benign essential hypertension Start: 08-23-2023 End: 08-23-2023 ambulatory [facility] Start: 08-12-2023 Refill Suki Maria C [facility] Sonu salazar [facility] Start: 07-27-2023 Telephone encounter Joaquin kebede DO Work Phone: [facility] Start: 07-07-2023 Orders Only Joaquin chung DO Work Phone: [facility] Start: 07-06-2023 End: 07-07-2023 ambulatory [facility] Start: 07-06-2023 End: 07-06-2023 Office outpatient visit 25 minutes Joaquin Devine DO Work Phone: [facility] Comment on above: 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, without long-term current use of insulin [place] (Primary Dx); Benign essential hypertension; Hyperlipidemia, unspecified hyperlipidemia type; Acute deep vein thrombosis (DVT) of calf muscle vein of right lower extremity [place] Start: 07-06-2023 ambulatory [facility] Start: 06-14-2023 End: 06-14-2023 ambulatory Gino Carrasquillo Other [employer] Other Start: 06-14-2023 Telephone encounter Gino Carrasquillo [facility] Start: 06-10-2023 End: 06-10-2023 ambulatory Gino Carrasquillo Other [employer] Other Start: 06-10-2023 Telephone encounter Gino Carrasquillo [facility] Start: 06-09-2023 End: 06-09-2023 ambulatory Gino Carrasquillo Other [employer] Other Start: 06-09-2023 Office outpatient vi sit 25 minutes Gino Carrasquillo [facility] Start: 06-07-2023 End: 06-07-2023 ambulatory Gino Carrasquillo Other [employer] Other Start: 06-07-2023 Telephone encounter Bridget Cummins CMA [facility] Start: 06-01-2023 End: 06-01-2023 ambulatory Gino Carrasquillo Other [employer] Other Start: 06-01-2023 Telephone encounter Gino Carrasquillo [facility] Start: 05-31-2023 End: 06-01-2023 ambulatory Kenji De Guzman MD Facility: [facility] Start: 05-19-2023 End: 05-19-2023 ambulatory Gino Carrasquillo Other [employer] Other Start: 05-19-2023 Telephone encounter Gino Carrasquillo [facility] Start: 04-13-2023 End: 04-13-2023 ambulatory Gino Carrasquillo Other [employer] Other Start: 04-13-2023 Office outpatient vi sit 15 minutes Gino Carrasquillo [facility] Start: 03-11-2023 End: 03-11-2023 ambulatory Gino Carrasquillo Other [employer] Other Start: 03-11-2023 Telephone encounter Gino Carrasquillo [facility] Start: 03-10-2023 End: 03-10-2023 ambulatory Gino Carrasquillo Other [employer] Other Start: 03-10-2023 Telephone encounter Gino Carrasquillo [facility] Start: 03-01-2023 End: 03-01-2023 ambulatory Gino Carrasquillo Other [employer] Other Start: 03-01-2023 Telephone encounter Gino Carrasquillo [facility] Start: 02-22-2023 End: 02-22-2023 ambulatory Gino Carrasquillo Other [employer] Other Start: 02-22-2023 Telephone encounter Gino Carrasquillo [facility] Start: 02-16-2023 End: 02-16-2023 ambulatory Gino Carrasquillo Other [employer] Other Start: 02-16-2023 Office outpatient vi sit 15 minutes Gino Neida [facility] Start: 02-04-2023 End: 02-04-2023 ambulatory Gino Carrasquillo Other [employer] Other Start: 02-04-2023 Office outpatient vi sit 15 minutes Gino Neida [facility] Start: 02-02-2023 End: 02-02-2023 ambulatory Gino Carrasquillo Other [employer] Other Start: 02-02-2023 Telephone encounter Gino Neida [facility] [employer] Start: 01-28-2023 End: 01-28-2023 ambulatory Gino Carrasquillo Other [employer] Other Start: 01-28-2023 Office outpatient vi sit 15 minutes Gino Neida [facility] Start: 12-18-2022 End: 12-18-2022 ambulatory Gino Carrasquillo Other [employer] Other Start: 12-18-2022 Telephone encounter Gino Neida [facility] Start: 12-09-2022 End: 12-09-2022 Lab Drop off JUAN CARLOS WESTON [facility] Start: 10-05-2022 End: 10-06-[address] GINO CARRASQUILLO Facility:[facility] Start: 09-23-2022 End: 09-23-2022 ambulatory Gino Carrasquillo Other [employer] Other Start: 09-23-2022 Telephone encounter Gino Carrasquillo [facility] Start: 09-22-2022 End: 09-23-[address] GINO CARRASQUILLO Facility:[facility] Start: 09-08-2022 End: 09-08-2022 ambulatory Gino Carrasquillo Other [employer] Other Start: 09-08-2022 Office outpatient vi sit 15 minutes Gino Carrasquillo [facility] Start: 08-27-2022 End: 08-27-2022 ambulatory Gino Carrasquillo Other [employer] Other Start: 08-27-2022 Office outpatient vi sit 15 minutes Gino Carrasquillo [facility] Start: 08-13-2022 End: 08-13-2022 ambulatory Gino Carrasquillo Other [employer] Other Start: 08-13-2022 Telephone encounter Gino Carrasquillo [facility] Start: 08-12-2022 End: 08-13-[address] GINO CARRASQUILLO Facility:[facility] Start: 08-11-2022 End: 08-12-[address] GINO CARRASQUILLO Facility:[facility] Start: 08-10-2022 End: 08-10-2022 ambulatory Gino Carrasquillo Other [employer] Other Start: 08-10-2022 Office outpatient ne w 45 minutes Gino Carrasquillo [facility] Start: 07-16-2022 End: 07-16-2022 ambulatory ESA SHEA . Facility:[facility] Start: 03-09-2022 End: 03-09-[address] JOAQUIN DEVINE Facility:[facility] Start: 01-27-2022 End: 01-27-[address] JOAQUIN DEVINE Facility:[facility] Start: 11-26-2021 End: 11-26-2021 Lab Drop off Norma Pulido [facility] Start: 11-26-2021 End: 11-26-2021 Patient encounter procedure Norma Pulido [facility] Start: 11-22-2021 End: 11-23-[address] [...] 02-12-2023 Diabetic retinal eye exam Bridget Cummins [employer] Start: 07-23-2022 Adult depression scr eening assessment Bridget Cummins [employer] Start: 09-17-2021 Mammography Joaquin Fur long DO Work Phone: Start: 06-16-2021 Cystoscopy JUAN CARLOS PRAJAPATI Start: 03-26-2016 Colonoscopy Joaquin Fur long DO Work Phone: Colonoscopy Norma Pulido Cystoscopy Norma Pulido Hysterectomy Norma Pulido Plan of Treatment Date Care Activity Detail Author Start: 03-26-2026 Screening for malign ant neoplasm of colon Colonoscopy [facility] Start: 03-07-2025 Adult BMI Screening Adult BMI Screen ing [facility] Start: 03-07-2025 Tobacco Screening Tobacco Screening [facility] Start: 02-20-2025 Adult BMI Screening Adult BMI Screen ing [facility] Start: 02-20-2025 Depression Screening Depression Scre ening [facility] Start: 02-20-2025 Diabetic foot examination Diabetic Foot Exam [facility] Start: 02-20-2025 Fall Risk Screening Fall Risk Screen ing [facility] Start: 02-20-2025 Tobacco Screening Tobacco Screening [facility] Start: 10-10-2024 End: 10-10-2024 Patient encounter procedure 10/10/2024 3:00 PM EDT Office Visit [facility] [address] [place] [address] [facility] Start: 10-06-2024 Medicare Annual Well ness Visit Medicare Annual Wellness Visit [facility] Start: 09-13-2024 Adult BMI Follow Up Plan Adult BMI Follow Up Plan [facility] Start: 08-22-2024 Adult BMI Screening Adult BMI Screen ing [facility] Start: 08-22-2024 Depression Screening Depression Scre ening [facility] Start: 08-22-2024 Fall Risk Screening Fall Risk Screen ing [facility] Start: 08-22-2024 Tobacco Screening Tobacco Screening [facility] Start: 07-06-2024 Adult BMI Screening Adult BMI Screen ing [facility] Start: 07-06-2024 Depression Screening Depression Scre ening [facility] Start: 07-06-2024 Fall Risk Screening Fall Risk Screen ing [facility] Start: 07-06-2024 Tobacco Screening Tobacco Screening [facility] Start: 06-11-2024 Glaucoma screening Diabetic Op hthalmology Exam [facility] Start: 02-13-2024 Glaucoma screening Diabetic Op hthalmology Exam [facility] Start: 02-09-2024 Adult BMI Screening Adult BMI Screen ing [facility] Start: 02-09-2024 Tobacco Screening Tobacco Screening [facility] Start: 01-23-2024 COVID-19 Vaccine ( season) COVID-19 Vaccine ( season) [facility] Start: 01-23-2024 Influenza vaccination Influenza Vacc ine [facility] Start: 10-25-2023 End: 10-25-2023 Patient encounter procedure 10/25/2023 11:00 AM EDT Office Visit [facility] [address] [place] [address] Joaquin Devine DO [address], [facility] [place] [address] [facility] Start: 08-23-2023 End: 08-23-2023 Patient encounter procedure 08/23/2023 3:30 PM EDT Office Visit [facility] [address] [place] [address] Joaquin Devine DO [address], [facility] [place] [address] [facility] Start: 07-24-2023 Depression Screening Depression Scre ening [facility] Start: 07-24-2023 Fall Risk Screening Fall Risk Screen ing [facility] Start: 01-22-2023 COVID-19 Vaccine ( season) COVID-19 Vaccine ( season) [facility] Start: 01-22-2023 Influenza vaccination Influenza Vacc ine [facility] Start: 09-17-2022 Screening for malign ant neoplasm of breast Mammogram [facility] Start: 10-14-2021 DTaP,Tdap and Td Vaccines (2 - Td or Tdap) DTaP,Tdap and Td Vaccines (2 - Td or Tdap) [facility] Start: 2001 Administration of varicella zoster vaccine Zoster (Shingles) Vaccine (1 of 2) [facility] Start: 1970 Administration of varicella zoster vaccine Zoster (Shingles) Vaccine (1 of 2) [facility] Start: 1969 Diabetic foot examination Diabetic Foot Exam [facility] Start: 1951 Medicare Annual Well ness Visit Medicare Annual Wellness Visit [facility] Start: 1950 Urine screening for protein Urine Microalbumin [facility] End: 07-06-2024 Hemoglobin A1c/Hemoglobin.total in Blood Hemoglobin A1c Lab Routine Type 2 diabetes mellitus with diabetic nephropathy, without long-term current use of insulin [place] 1 Occurrences starting 07/06/2023 until 07/06/2024 [employer] Phone: Comment on above: 1 Occurrences starti ng 07/06/2023 until 07/06/2024 Hemoglobin A1c/Hemoglobin.total in Blood Hemoglobin A1c Lab Routine Type 2 diabetes mellitus with diabetic nephropathy, without long-term current use of insulin [place] 07/06/2023 9:50 PM EST [facility] Immunizations Immunization Date Immunization Notes Care Provider Fa cilijamison 03-15-2022 Influenza Vaccine, Quadrivalent, Adjuvanted Bridget [facility] 03-15-2022 influenza virus vaccine, unspecified formulation Bridget [facility] 05-06-2021 Influenza, High-dose , Quadrivalent Bridget Cummins [facility] 02-22-2020 influenza, high dose seasonal, preservative-free Harsh[place]brooklynn Cummins [facility] 02-06-2020 influenza, high dose seasonal, preservative-free Harshqubrooklynn Cummins [facility] 08-02-2019 pneumococcal polysaccharide vaccine, 23 valent Harshqubrooklynn Cummins [facility] 07-31-2019 influenza, high dose seasonal, preservative-free Harshqubrooklynn Cummins [facility] 05-21-2018 influenza, high dose seasonal, preservative-free Harshqubrooklynn Cummins [facility] 11-11-2017 pneumococcal polysaccharide vaccine, 23 valent Bridget Cummins [facility] 07-20-2014 pneumococcal conjuga te vaccine, 13 valent [facility] 02-24-2013 influenza virus vaccine, unspecified formulation [facility] 10-15-2011 tetanus toxoid, redu wanda diphtheria toxoid, and acellular pertussis vaccine, adsorbed [facility] NEGATED: Highlighted row has not occurred!11-26-2021 SARS-CoV-2 mRNA (tozinameran 5y-11y) vaccine Norma Pulido [facility] Payers Date Payer Category Payer Private Health Insurance 2022 Medicare AETNA MEDICARE A ETNA MEDICARE PLAN (PPO) [id number] 2022-Present [phone] [address] [place] [address] [id number] 2022 Medicare HMO AETNA MEDICARE [id number] 1959 Medicare [id number] 1959 Medicare [id number] 1959 Medicare [id number] 1950 Unknown [id number] 2.16.840.1.594200.3.579.2. 593 1951 Unknown [id number] 2.16.840.1.330709.3.579.2. 593 1951 Unknown [id number] 2.16.840.1.193240.3.579.2. 593 1951 Unknown [id number] 2.16.840.1.505280.3.579.2. 593 1951 Unknown [id number] 2.16.840.1.223985.3.579.2. 593 1951 Unknown [id number] 2.16.840.1.588923.3.579.2. 593 1951 Unknown [id number] 2.16.840.1.295264.3.579.2. 593 1951 Unknown [id number] 2.16.840.1.077543.3.579.2. 593 1951 Unknown [id number] 2.16.840.1.293670.3.579.2. 593 1951 Unknown [id number] 2.16.840.1.402834.3.579.2. 196 1950 Unknown [id number] 2.16.840.1.189976.3.579.2. 1286 1951 Unknown [id number] 2.16.840.1.998190.3.579.2. 128 1951 Unknown [id number] 2.16.840.1.930960.3.579.2. 1286 1951 Unknown [id number] 2.16.840.1.759124.3.579.2. 128 1951 Unknown [id number] 2.16.840.1.648641.3.579.2. 1286 1951 Unknown [id number] 2.16.840.1.781693.3.579.2. 128 1951 Unknown [id number] 2.16.840.1.800601.3.579.2. 1286 1951 Unknown [id number] 2.16.840.1.699621.3.579.2. 1286 1951 Unknown [id number] 2.16.840.1.389145.3.579.2. 1286 1951 Unknown [id number] 2.16.840.1.866192.3.579.2. 1286 1951 Unknown [id number] 2.16.840.1.868100.3.579.2. 1286 1951 Unknown [id number] 2.16.840.1.267215.3.579.2. 727 1950 Unknown [id number] 2.16.840.1.570916.3.579.2. 727 1950 Unknown [id number] 2.16.840.1.966663.3.579.2. 727 Social History Date Type Detail Facility Start: 06-04-2021 End: 04-05-2024 Tobacco smoking status Never smoked tobacco (finding) [facility] Start: 02-08-2023 End: 10-07-2023 Sex Assigned At Female [facility] Tobacco smoking status Never [facility] Start: 04-13-2022 Tobacco use and exposure Smokeless tobacco [facility]user [facility] Start: 02-08-2023 End: 03-07-2024 Alcohol intake Ex-drinker (finding) [employer] [facility] Start: 02-08-2023 End: 10-07-2023 History of Social function [facility] Start: 1950 Sex Assigned At Not on file P [employer] Has the [employer], [employer], or [employer] threatened to shut off services in your home in past 12Mo No [facility] Are you now , , , , never or living with a partner? [facility] How often to you hav e a drink containing alcohol? Monthly or less [facility] How often do you hav e 6 or more drinks on 1 occasion? Never [facility] Do you feel stress - tense, restless, nervous, or anxious, or unable to sleep at night because your mind is troubled all the time - these days [OSQ] Not at all [facility] Start: 12-27-2014 Sex Female (finding) [facility] Medical Equipment Procedure Code Equipment Code Equipment Origin al Text Equipment Identifier Dates Inject 1 Lancet under the skin in the morning. E11.9. [id number] Start: 02-25-2024 1 strip by other route as needed for high blood sugar. [id number] Start: 02-21-2024 Functional Status Date Assessment Result Facility 04-05-2024 Functional Status N/A [facility] 12-15-2023 Functional Status N/A [facility] 11-26-2021 Functional Status N/A [facility] Clinical Notes 11-26-2021 to 04-05-2024 Laura [...] include: ?8 oz (237 mL) of milk, kqysafr-colsydpwbdjh-owdor milk, and calcium-fortifiedfruit juice. Calcium-fortified means that [...] ?Spinach (cooked), rhubarb, beets, sweet potatoes, and [place] chard. ?Peanuts. ?Potato chips, romanian fries, and baked potatoes with skin on. ?Nuts and nut products. ?Chocolate. If you regularly take a diuretic medicine, make sure to eat at least 1 or 2 servings of fruits or vegetables that are high in potassium each day. These include: ?Avocado. ?Banana. ?[place], prune, carrot, or tomato juice. ?Baked potato. [...] magnesium, fish oil, or vitamin B6. Take cnal-emt-ostvmzq and prescription medicines only as told by [...] Casseroles. Pizza. Lasagna. Frozen meals. Potato chips. Mongolian fries. The items listed above may not [...] provider. Document Revised: 08/20/2022 Document Reviewed: 08/20/2022 [employer] Patient Education 2023 Framed Data. Follow Up Care 12/15/2023 09:43:06 With:Ashok LAWTON, ALVIN Siddiqi, URO Address: When: Unknown [facility] Tori 04-05-2024 Note Patient Education Nephrology [...] ? 8 oz (237 mL) of milk, eplqorf-yldwcuxgmdpp-untjh milk, and calcium-fortifiedfruit juice. Calcium-fortified means that [...] Spinach (cooked), rhubarb, beets, sweet potatoes, and [place] chard. ? Peanuts. ? Potato chips, romanian fries, and baked potatoes with skin on. ? Nuts and nut products. ? Chocolate. ??? If you regularly take a diuretic medicine, make sure to eat at least 1 or 2 servings of fruits or vegetables that are high in potassium each day. These include: ? Avocado. ? Banana. ? [place], prune, carrot, or tomato juice. ? Baked [...] fish oil, or vitamin B6. ??? Take holg-ywj-qxyhaxd and prescription medicines only as told by your health (more content not included)... [facility] 03-07-2024 History of Presen t illness Narrative [...] Date Anxiety Diabetes mellitus type 2, controlled ([facility]) Hyperlipidemia Osteoporosis Past Surgical History: [...] min Stress: No Stress Concern Present (10/07/2023) [employer] - Occupational Stress Questionnaire Feeling of Stress : Not at all Social Connections: Moderately Integrated (10/07/2023) Social Connection and Isolation Panel [NHANES] Frequency of Communication with Friends and Family: More than three times a week Frequency of Social Gatherings with Friends and Family: More than three times a week Attends Scientology Services: More than 4 times per year [...] patient/family/caregiver Referring and communicating with other health nurse healthcare manager Laura Bullock MD [facility] [place] documented in this encounter [facility] [employer] [facility] 08-23-2023 History of Presen t illness [...] ([facility]) Ok to take PM dose of metformin based on FBS. Check A1 c next visit Hyperlipidemia, unspecified hyperlipidemia type Continue atorvastatin but if myalgias return then call and will decrease freqency to every other day. Acute deep vein thrombosis (DVT) of calf muscle vein of right lower extremity ([facility]) May stop Eliquis. She has only had 1 provoked DVT and was on Eliquis for 6+ months. Recommended to F/U with vascular. Benign essential hypertension BP at goal. Continue current regimen documented [facility] 07-27-2023 Miscellaneous Notes [...] in the meantime. documented in this encounter [facility] 07-27-2023 Telephone encounter Note Patient called [...] a in office f/u scheduled for 10/05/23. [facility] 07-27-2023 Telephone encounter Note She should probably move that appointment up. Would need to know a lot more information about her chest pain [facility] [employer] 07-27-2023 Telephone encounter Note Moved visit up to 08/22 and instructed patient to go to the ER if symptoms worsen in the meantime. [facility] [employer] 07-06-2023 History of Presen t illness Narrative [...] without long-term current use of insulin ([facility] - Hemoglobin A1c; Future Check A1c. [...] Take with meals. documented in this encounter [employer] 06-09-2023 Evaluation note Encounter Date Diagnosis Assessment Notes May, Type 2 diabetes mellitus with hyperglycemia, without long-term current use of insulin (ICD-10 - E11.65) A1C increased - dose of metformin increased. Watch sweets, stay hydrated. May, Essential (primary) hypertension (ICD-10 - I10) BP stable today. DASH diet and good hydration May, Chronic fatigue (ICD-10 - R53.82) assess for iron deficiency and hypothyroidism [employer] Other 01-15-2024 Evaluation note* Encounter Date Diagnosis Assessment Notes Treatment Notes Treatment Clinical Notes May, Type 2 diabetes mellitus with hyperglycemia, without long-term current use of insulin (ICD-10 - E11.65) [employer] Other 01-15-2024 Miscellaneous Notes* Telephone Encounter - Bridget Cummins CMA - 06/07/2023 11:34 AM EST Called patient to reschedule appointment [facility] [employer] [facility] [id number] Telephone encounter Note* Telephone Encounter - Bridget Cummins CMA - 06/07/2023 11:34 AM EST Called patient to reschedule appointment [facility]01-09-2024 Evaluation note* Encounter Date Diagnosis Assessment Notes Treatment Notes Treatment Clinical Notes May, Essential (primary) hypertension (ICD-10 - I10) [employer] Other 11-21-2023 Evaluation note* Encounter Date Diagnosis Assessment Notes Treatment Notes Treatment Clinical Notes Mar, Lumbar back pain with radiculopathy affecting right lower extremity (ICD-10 - M54.16) Discussed holding atorvastatin to help with muscle pain. Pt agrees to referral to Pain Mgmt. Has had benign xrays of back and hip, per her report. [employer] Other 10-18-2023 Evaluation note* Encounter Date Diagnosis Assessment Notes Treatment Notes Treatment Clinical Notes Feb, Recurrent occipital headache (ICD-10 - R51.9) [employer] Other 10-09-2023 Evaluation note* Encounter Date Diagnosis Assessment Notes Treatment Notes Treatment Clinical Notes Feb, Essential (primary) hypertension (ICD-10 - I10) [employer] Other 09-26-2023 Evaluation note* Encounter Date Diagnosis [...] worsened since starting eliquis. [facility] [employer] Other 09-14-2023 Evaluation note* Encounter Date Diagnosis Assessment Notes Treatment Notes Treatment Clinical Notes Jan, Acute deep vein thrombosis (DVT) of calf muscle vein of right lower extremity (ICD-10 - I82.461) Wrote out instructions and gave samples of eliquis. Has appt later this week w vascular in [place]. Pt expresses understanding of the seriousness of this problem and will follow up w vascular and attribute to their treatment plan for DVT. [employer] Other 09-07-2023 Evaluation note* Encounter Date Diagnosis Assessment Notes Treatment Notes Treatment Clinical Notes Jan, Cervical pain (neck) (ICD-10 - M54.2) Printed order for PT. continue NSAIDs and heat therapy. Suspect her headaches are due to cervical problems. Jan, Varicose veins of both lower extremities with pain (ICD-10 - I83.813) Pt agrees to referral to vascular surgery for her prominent painful varicose veins. [employer] Other 07-28-2023 Evaluation note* Encounter Date Diagnosis Assessment Notes Treatment Notes Treatment Clinical Notes Nov, Type 2 diabetes mellitus with hyperglycemia, without long-term current use of insulin (ICD-10 - E11.65) [employer] Other 07-19-2023 Hospital Discharge instructions Follow Up Care 12/09/2022 15:14:32 With:Ashok LAWTON, Norma Chambers, URMilagro, URO Address: When: Unknown Comments:6 mos w/YAMILKA [facility] 05-03-2023 Evaluation note* Encounter Date Diagnosis Assessment Notes Treatment Notes Treatment Clinical Notes September, Abnormal mammogram of right breast (ICD-10 - R92.8) [employer] Other 04-18-2023 Evaluation note* Encounter Date Diagnosis Assessment Notes Treatment Notes Treatment Clinical Notes Aug, Vaginal yeast infection (ICD-10 - B37.31) Complete med and call if symptoms continue Aug, Screening mammogram for breast cancer (ICD-10 - Z12.31) [employer] Other 04-06-2023 Evaluation note* Encounter Date Diagnosis [...] - I10) Chronic problem - requests refill. [employer] Other 03-22-2023 NotePROCEDURE: XR HIP RT 2 3V W PELVIS HISTORY: Pain in right leg ; low back pain COMPARISON: None. FINDINGS: BONES:No fracture, acute abnormality, or significant arthropathy. SOFT TISSUES:No visible soft tissue swelling. EFFUSION:None visible. OTHER: Negative. IMPRESSION: 1. No acute bone abnormality or significant degenerative changes of the hip joints. Electronically authenticated by: KYLIE MENON Date: 2022-08-12 09:35[facility]03-20-2023 Evaluation note* Encounter Date Diagnosis Assessment [...] levels and will check later this week [employer] Other 07-06-2022 Hospital Discharge instructions Patient Education [...] Follow these instructions at home: Medicines Take kepa-dft-yfzhyud and prescription medicines only as told by [...] or the blood stops without treatment. Take qraj-tuk-mwgwajt and prescription medicines only as told by your health care provider. Drink enough fluid to keep your urine clear or pale yellow. This information is not intended to replace advice given to you by your health care provider. Make sure you discuss any questions you have with your health care provider. Document Released: 05/10/2006 Document Revised: 10/04/2019 Document Reviewed: 06/12/2017 [employer] Patient Education 2020 [employer] Follow Up Care 11/18/2021 15:11:49 With:Norma Pulido MD, URL, URO Address: When:1 year Comments:Renal US [facility] evaluation + Plan note Future Appointments Appointment Date:12/02/2022 08:00:00 AM Scheduled Provider:Norma Pulido MD [facility]oint[facility] Type:URO Office Visit [facility] evaluation + Plan note Future Appointments Appointment Date:12/15/2023 09:00:00 AM Scheduled Provider:Norma Pulido MD [facility] Appointment Type:URO Office Visit Diagnostic Tests Pending * [facility] App[facility]ments Appointment Date:03/22/2024 10:45:00 AM Scheduled Provider:Norma Pulido MD [facility] Appointment Type:URO Office Visit [facility] evaluation + Plan note Future Appointments Appointment Date:03/22/2024 10:45:00 AM Scheduled Provider:Norma Pulido MD [facility] Appointment Type:URO Office Visit Diagnostic Tests Pending * Urine Culture 12/15/23 [facility] Evaluation noteNo [facility] [employer] Other Evaluation note* Diagnosis Type 2 diabetes mellitus with diabetic nephropathy, without long-term current use of insulin ([facility])- Primary Benign essential hypertension Essential hypertension, benign Hyperlipidemia, unspecified hyperlipidemia type Acute deep vein thrombosis (DVT) of calf muscle vein of right lower extremity ([facility]) documented in [facility] Diagnosis Type 2 diabetes mellitus without complication, without long-term current use of insulin ([facility])- Primary Hyperlipidemia, unspecified hyperlipidemia type Acute deep vein thrombosis (DVT) of calf muscle vein of right lower extremity ([facility]) Benign essential hypertension Essential hypertension, benign documented in this encounter [facility] Diagnosis Type 2 diabetes mellitus without complication, without long-term current use of insulin ([facility])- Primary [facility] in [facility] Diagnosis Skin lesion- Primary Unspecified disorder of skin and subcutaneous tissue Neoplasm of uncertain behavior of skin documented [facility] Narrative - Reported* Type Description Date Medical History Hyperlipidemia Medical History Diabetes Medical History Hypertension Surgical History Hysterectomy 1987 [place] [facility] Other History general Narrative - Reported* Type Description Date Medical History Hyperlipidemia Medical History Diabetes Medical History Hypertension Surgical History Hysterectomy 1988 Hospitalization History SEE SURGICAL HX [facility] [employer] Other Hospital course Narrative No data available for this section [facility] Hospital Discharge instructions No data available for this section [facility] filedocumented in this encounter [...] available for this section [facility] Summary Purpose Family History No Family [...] affecting right lower extremity (M54.16) Referral Organization [facility] S[facility]der durbin Referring Provider First Name Gino Referring Provider Last Name Neida Referring Provider Specialty Family Medi cine Referred Organization [facility] Referred Address [address] [place], [place],[address] Referred Provider Specialty Pain Medicin e Referral Priority Routine Reason [facility] [place] office? Last 2 OV, had xray and MRI. Occipital headaches Diagnosis 1 Recurrent occipital headache (R51.9) Referral Organization [facility] C gifty Referring Provider First Name Gino Referring Provider Last Name Carrasquillo Referring Provider Specialty Family Medi cine Referred Organization [facility] Referred Address [address] [place],[address] Referred Provider Specialty Neurology Referral Priority Routine Reason [facility] [place] - varicose veins that are tender R>L Diagnosis 1 Varicose veins of yong th lower extremities with pain (I83.813) Referral Organization [facility] [employer] [facility] gifty Referring Provider First Name Gino Referring Provider Last Name Neida Referring Provider Specialty Family Medi cine Referred Organization [facility] Referred Provider Betty Matos Referred Address [address], [place],[address] Referred Provider Specialty Vascular Tena rj Referral Priority Routine General Notes Giselle Levy 11:48:16 AM >received today, attachments made, waiting for notes to be locked Giselle Levy 02/02/2023 09:22:14 AM >SENT TE TO LOCK NOTES Clinical Notes P: [id number] F: [id number] Additional Source Comments Care Team (unrecognized sect ion and content) 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 Start Date End Date Gino Carrasquillo MD [address] [place] [address] PCP - General Family Medicine 02/04/23 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 Start Date End Date Joaquin Devine DO [address] [place] [address] PCP - General Family Medicine 07/06/23 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 Start Date End Date Joaquin Devine DO [address] [place] [address] PCP - General Family Medicine 07/06/23 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 Start Date End Date Joaquin Devine DO [address] [place] [address] [address] PCP - General Family Medicine 07/06/23 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 Start Date End Date Joaquin Devine DO [address], [place] [address] PCP - General Family Medicine 07/06/23 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 Start Date End Date Joaquin Devine DO [address], [place] [address] PCP - General Family Medicine 07/06/23 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 Start Date End Date Joaquin Devine DO [address], [place] [address] PCP - General Family Medicine 07/06/23 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 Start Date End Date Joaquin Devine DO [address], [place] [address] PCP - General Family Medicine 07/06/23 INFORMATION SOURCE (unrecogn ized section and content) DATE CREATED AUTHOR 11/27/2021 [facility] DATE CREATED AUTHOR AUTHOR'S ORGANIZ ATION 10/06/2022 [facility] DATE CREATED AUTHOR AUTHOR'S ORGANIZ ATION 06/02/2023 [facility] DATE CREATED AUTHOR AUTHOR'S ORGANIZ ATION 07/08/2023 [facility] DATE CREATED AUTHOR AUTHOR'S ORGANIZ ATION 11/18/2023 [facility] DATE CREATED AUTHOR AUTHOR'S ORGANIZ ATION 12/19/2023 [facility] DATE CREATED AUTHOR AUTHOR'S ORGANIZ ATION 03/09/2024 [facility] DATE CREATED AUTHOR AUTHOR'S ORGANIZ ATION 04/07/2024 [facility] REASON FOR VISIT (unrecogniz ed section [...] skin Joaquin Devine, DO [address] [facility], [place] [address] Phone: tel: fax: [facility] [address] [place] [address] Phone: tel: fax: Referral ID Status Reason Start Date Expiration Date V isits Requested Visits Authorized [id number] Closed Specialty Services Required 02/21/2024 02/20/2025 1 [...] BE BASED ON THE PRIMARY CLINICAL RECORDS. [employer] provides no warranty or guarantee of the accuracy or completeness of information in this document.
--- NOTE | 2024-04-10 11:23 | XR_ITS ---
The [address] [address] Patient Name: PEARL HAWKINS MRN: [id number] date: 1950 Sex: F Assigned Patient Location: ER Current Patient Location: ER Accession/Order Number: [id number] Exam Date: 04/10/2024 11:40 Report Date: 04/10/2024 11:58 At the request of: GEOVANY TMAEZ Procedure: XR cervical spine 2-3V EXAMINATION: XR cervical spine 2-3V HISTORY: Atraumatic right sided pain ; chronic neck pain radiating into right shoulder increasing in severity COMPARISON: CT cervical spine 06/15/2023 FINDINGS: BONES: Minimal grade 1 anterolisthesis of C4 on 5. Moderate-marked degenerative facet arthropathy on the left at C3-4, C4-5, C5-6. DISC SPACES: Mild narrowing C5-6. Moderate narrowing C6-7. PARASPINOUS: Negative. No paraspinous abnormality is seen. OTHER: Negative. XR/XR cervical spine 2-3V IMPRESSION: 1. Multilevel moderate degenerative changes of the cervical spine, with areas of marked degenerative facet arthropathy. Allowing for differences in technique, no appreciable change compared to CT cervical spine 06/15/2023. Electronically authenticated by: KYLIE MARCANO Date: 04/10/2024 11:58
--- NOTE | 2024-04-10 11:25 | ED_ITS ---
HPI HPI - Neck Pain/Injury General Chief Complaint: Neck Pain/Injury Stated Complaint: NECK PAIN Time Seen by Provider: 04/10/24 11:09 History of Present Illness HPI Narrative: 74-year-old female presents for right sided neck pain which started yesterday. She states that she took a nap and when she got up it was hurting. There was no specific injury and she has no weakness or numbness. She was seen here few days previous because of vertigo. She does not complain of a headache now and has no weakness or numbness. Related Data Home Medications ?Medication ?Instructions ?Recorded ?Confirmed apixaban 2.5 mg tablet (Eliquis) 2.5 mg PO BID 02/06/23 06/15/23 amlodipine 5 mg tablet 5 mg PO DAILY 05/31/23 04/07/24 atorvastatin 20 mg tablet 20 mg PO DAILY 05/31/23 04/07/24 meloxicam 7.5 mg tablet 7.5 mg PO DAILY 05/31/23 05/31/23 metformin 500 mg tablet 500 mg PO DAILY 05/31/23 04/07/24 calcium 600 mg (as cap PO 04/07/24 carbonate)-vitamin D3 5 mcg (200 unit) capsule (Calcium 600 + D(3)) meclizine 12.5 mg tablet mg 04/07/24 Previous Rx's ?Medication ?Instructions ?Recorded ondansetron 4 mg disintegrating 4 mg PO Q6H PRN nausea and 05/18/23 tablet vomiting #14 tabs diazepam 5 mg tablet (Valium) 5 mg PO Q8H PRN dizziness 3 days 04/07/24 #10 tabs methocarbamol 500 mg tablet 500 mg PO Q8H PRN pain #20 tabs 04/10/24 Allergies Allergy/AdvReac Type Severity Reaction Status Date / Time amoxicillin Allergy Unknown Rash Verified 04/10/24 10:54 cefdinir Allergy Unknown Unknown Verified 04/10/24 10:54 lisinopril Allergy Unknown Rash Verified 04/10/24 10:54 metformin Allergy Unknown Unknown Verified 04/10/24 10:54 sulfamethoxazole (From Allergy Unknown Rash Verified 04/10/24 10:54 Bactrim) trimethoprim (From Bactrim) Allergy Unknown Rash Verified 04/10/24 10:54 Opioid HPI Opioid Management Most Recent Opioid Data: No Data to Display Review of Systems ROS Narrative A ten point review of systems is negative except as noted above. [facility] Social History Smoking status: Never smoker Little interest or pleasure in doing things: not at all Feeling down, depressed, or hopeless: not at all Exam Narrative Exam Narrative: Nurses note and vital signs reviewed and patient is not hypoxic. General: The patient appears well and in no apparent distress. Patient is resting comfortably on cart. Skin: Warm, dry, no pallor noted. There is no rash noted. Head: Normocephalic, atraumatic; neck has no mass bruise rash or swelling. She is reluctant to turn her head. Eye: Normal conjunctiva, no drainage Ears, Nose, Mouth, and Throat: oral mucosa is moist. Nares patent. Cardiovascular: Regular Rate and Rhythm Respiratory: Patient is in no distress, no accessory muscle use, lungs are clear to auscultation, no wheezing, rales or rhonchi Back: non-tender GI: Soft and nontender Musculoskeletal: The patient has no evidence of calf tenderness, no pitting edema, symmetrical pulses noted bilaterally Neurological: A&O, normal speech; upper and lower extremity strength 5 out of 5 and symmetric Psychiatric: Cooperative Constitutional Vital Signs, click to edit/add: Last Vital Signs Temp 98 F 04/10/24 10:48 Pulse 94 H 04/10/24 10:48 Resp 16 04/10/24 10:48 BP 158/81 H 04/10/24 10:48 Pulse Ox 98 04/10/24 10:48 Course Vital Signs Vital signs: Vital Signs Temperature 98 F 04/10/24 10:48 Pulse Rate 94 H 04/10/24 10:48 Respiratory Rate 16 04/10/24 10:48 Blood Pressure 158/81 H 04/10/24 10:48 Pulse Oximetry 98 04/10/24 10:48 Temperature 98 F 04/10/24 10:48 Pulse Rate 94 H 04/10/24 10:48 Respiratory Rate 16 04/10/24 10:48 Blood Pressure 158/81 H 04/10/24 10:48 Pulse Oximetry 98 04/10/24 10:48 MDM - Neck Pain/Injury MDM Narrative Medical decision making narrative: C-spine x-rays were discussed with the patient. She feels improved after being given IM Norflex and she will be discharged home. She is prescribed methocarbamol. She is on Eliquis so we will avoid anti-inflammatories. Treatment diagnosis and follow-up were discussed with the patient. Differential Diagnosis Differential diagnosis: Likely disc disorder of cervical region, whiplash injury to neck, cervical radiculopathy, cervical spondylosis and strain of neck muscle Discharge Plan Discharge Chief Complaint: Neck Pain/Injury Clinical Impression: Torticollis Patient Disposition: Home, Self-Care Time of Disposition Decision: 12:55 Condition: Good Mode of Transportation: Private Vehicle Prescriptions / Home Meds: New methocarbamol 500 mg tablet 500 mg PO Q8H PRN (Reason: pain) Qty: 20 0RF No Action Eliquis 2.5 mg tablet 2.5 mg PO BID amlodipine 5 mg tablet 5 mg PO DAILY atorvastatin 20 mg tablet 20 mg PO DAILY meloxicam 7.5 mg tablet 7.5 mg PO DAILY metformin 500 mg tablet 500 mg PO DAILY ondansetron 4 mg tablet,disintegrating 4 mg PO Q6H PRN (Reason: nausea and vomiting) Qty: 14 0RF meclizine 12.5 mg tablet Calcium 600 + D(3) 600 mg-5 mcg (200 unit) capsule PO diazepam [Valium] 5 mg tablet 5 mg PO Q8H PRN (Reason: dizziness) 3 Days Qty: 10 0RF Print Language: Uzbek Instructions: Neck Pain (ED) Additional Instructions: Do not take Valium and methocarbamol on the same day. Referrals: BRUCE WALLER [Primary Care Provider] - 1 week
[2024-04-10] MEDS: ORPHENADRINE 60 MG/ 2 ML VIAL IM (11:45)
== END 2024-04-10 13:06 | disposition home or self-care (01) ==
PROVIDERS: Emergency Provider Emergency Medicine; PCP Family Medicine
DX: M43.6 Torticollis (principal); Z79.01 Long term (current) use of anticoagulants
CPT/HCPCS: 72040; 96372; 99284; J2360

== ENCOUNTER 2025-01-29 11:07 | Emergency (ER) | payer MEDICARE, SELFPAY ==
[2025-01-29 11:17] VITALS: BP 147/98; PULSE 92; TEMP 37.2; O2SAT 99; BMI 23.2
--- NOTE | 2025-01-29 11:25 | CT_ITS ---
The [address] [address] Patient Name: PEARL HAWKISN MRN: [id number] date: 1950 Sex: F Assigned Patient Location: ER Current Patient Location: ER Accession/Order Number: [id number] Exam Date: 01/29/2025 11:53 Report Date: 01/29/2025 12:24 At the request of: GEOVANY TAMEZ MD Procedure: CT head/brain wo con Unenhanced head CT TECHNIQUE: Contiguous axial imaging of the head. The CT exam was performed using one or more the following dose reduction techniques: Automated exposure control, adjustment of the MA and/or Kv according to patient size, or use of the iterative reconstruction technique. COMPARISON: 04/07/2024 HISTORY: Dizziness for one week VENTRICLES: Within normal limits ATROPHY: Similar atrophy BRAIN PARENCHYMA: Similar small vessel disease HEMORRHAGE: None HERNIATION: No mass effect or herniation INFARCTION: No recent vascular distribution infarction is seen. EXTRA-AXIAL FLUID COLLECTIONS None MIDBRAIN: Unremarkable BASILIO: Unremarkable MEDULLA: Unremarkable SINUSES: Unremarkable ORBITS: Grossly unremarkable MASTOIDS: Unremarkable BONY STRUCTURES Intact ADDITIONAL FINDINGS: CT/CT head/brain wo con IMPRESSION: No acute findings. Impression dictated by: Omid Messer M.D. 01/29/2025 12:24 PM Dictation Location: [place] [address] Electronically authenticated by: [id number] Y Date: 01/29/2025 12:24
--- NOTE | 2025-01-29 11:25 | ECG_ITS ---
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
--- NOTE | 2025-01-29 11:26 | ED.GENADUL1 ---
HPI HPI - General Adult General Chief complaint: Dizziness Stated complaint: DIZZINESS NAUSEA Time Seen by Provider: 01/29/25 11:14 Source: patient Mode of arrival: Wheelchair Limitations: no limitations History of Present Illness HPI narrative: 75-year-old female presents to the emergency department for dizziness. She states that for the last week she has been dizzy and the symptoms are that when she walks she feels like she is off balance and she might fall down. No headache or localized weakness. She has been having the symptoms for the past week and she took Antivert but it was not helping much and it got worse at 5:00 this morning. She has had this in the past with negative workup. No chest pain or palpitations. No fever or vomiting. Related Data Home Medications ?Medication ?Instructions ?Recorded ?Confirmed amlodipine 5 mg tablet 5 mg PO DAILY 05/31/23 01/29/25 metformin 500 mg tablet 500 mg PO DAILY 05/31/23 01/29/25 calcium 600 mg (as cap PO 04/07/24 carbonate)-vitamin D3 5 mcg (200 unit) capsule (Calcium 600 + D(3)) meclizine 12.5 mg tablet 12.5 mg PO QID PRN dizziness 04/07/24 01/29/25 Previous Rx's ?Medication ?Instructions ?Recorded diazepam 5 mg tablet (Valium) 5 mg PO Q8H PRN dizziness or 01/29/25 vertigo 4 days #14 tabs Allergies Allergy/AdvReac Type Severity Reaction Status Date / Time amoxicillin Allergy Unknown Rash Verified 01/29/25 11:17 cefdinir Allergy Unknown Unknown Verified 01/29/25 11:17 lisinopril Allergy Unknown Rash Verified 01/29/25 11:17 metformin Allergy Unknown Unknown Verified 01/29/25 11:17 sulfamethoxazole (From Allergy Unknown Rash Verified 01/29/25 11:17 Bactrim) trimethoprim (From Bactrim) Allergy Unknown Rash Verified 01/29/25 11:17 Review of Systems ROS Narrative A ten point review of systems is negative except as noted above. PFSH PFSH Social History Smoking status: Never smoker Little interest or pleasure in doing things: not at all Feeling down, depressed, or hopeless: not at all Exam Narrative Exam Narrative: Nurses note and vital signs reviewed and patient is not hypoxic. General: The patient appears well and in no apparent distress. Patient is resting comfortably on cart. Skin: Warm, dry, no pallor noted. There is no rash noted. Head: Normocephalic, atraumatic Eye: Normal conjunctiva, no drainage, EOMI. PERRL Ears, Nose, Mouth, and Throat: oral mucosa is moist. Nares patent. Cardiovascular: Regular Rate and Rhythm Respiratory: Patient is in no distress, no accessory muscle use, lungs are clear to auscultation, no wheezing, rales or rhonchi Back: non-tender GI: Soft and nontender Musculoskeletal: The patient has no evidence of calf tenderness, no pitting edema, symmetrical pulses noted bilaterally Neurological: A&O, normal speech; upper and lower extremity strength 5 out of 5 and symmetric Psychiatric: Cooperative Constitutional Vital Signs, click to edit/add: Last Vital Signs Temp 98.9 F 01/29/25 11:17 Pulse 92 H 01/29/25 11:17 Resp 16 01/29/25 11:17 BP 147/98 H 01/29/25 11:17 Pulse Ox 99 01/29/25 11:17 O2 Del Method Room Air 01/29/25 11:17 Course Vital Signs Vital signs: Vital Signs Temperature 98.9 F 01/29/25 11:17 Pulse Rate 92 H 01/29/25 11:17 Respiratory Rate 16 01/29/25 11:17 Blood Pressure 147/98 H 01/29/25 11:17 Pulse Oximetry 99 01/29/25 11:17 Oxygen Delivery Method Room Air 01/29/25 11:17 Temperature 98.9 F 01/29/25 11:17 Pulse Rate 92 H 01/29/25 11:17 Respiratory Rate 16 01/29/25 11:17 Blood Pressure 147/98 H 01/29/25 11:17 Pulse Oximetry 99 01/29/25 11:17 Oxygen Delivery Method Room Air 01/29/25 11:17 Medical Decision Making MDM Narrative Medical decision making narrative: Her workup including CT brain is negative. She was given 2.5 mg of IV Valium and feels improved and stable to be discharged home with a prescription for Valium. She will follow-up with her physician. Treatment diagnosis and follow-up were discussed with the patient. Differential Diagnosis Differential Diagnosis: Dehydration, vertigo, cardiac dysrhythmia Medical Records Medical records reviewed: Yes I reviewed the patient's medical records Lab Data Lab results reviewed: Yes I reviewed the patient's lab results Labs: Lab Results 01/29/25 01/29/25 Range/Units 11:35 11:38 WBC 5.8 (4.0-11.0) 10^3/uL RBC 4.46 (4.20-5.40) 10^6/uL Hgb 13.3 (12.0-16.0) g/dL Hct 37.5 (36.0-48.0) % MCV 84.1 (81.0-99.0) fL MCH 29.8 (26.7-34.0) pg MCHC 35.5 H (29.9-35.2) g/dL RDW 11.7 (11.0-15.0) % Plt Count 184 (150-450) 10^3/uL MPV 11.2 (9.5-13.5) fL Neut % (Auto) 70.5 (43.0-75.0) % Lymph % (Auto) 21.6 (20.5-60.0) % Alfalfa % (Auto) 5.5 (1.7-12.0) % Eos % (Auto) 1.4 (0.9-7.0) % Baso % (Auto) 0.7 (0.2-2.0) % Neut # (Auto) 4.1 (1.4-6.5) 10^3/uL Lymph # (Auto) 1.3 (1.2-3.8) 10^3/uL Alfalfa # (Auto) 0.3 (0.3-0.8) 10^3/uL Eos # (Auto) 0.1 (0.0-0.7) 10^3/uL Baso # (Auto) 0.0 (0.0-0.1) 10^3/uL Abs Immat Gran (auto) 0.02 (0.00-0.03) 10^3/uL Imm/Tot Granulo (auto) 0.3 (0.0-0.5) % Sodium 140 (136-145) mmol/L Potassium 3.4 L (3.5-5.1) mmol/L Chloride 102 (98-107) mmol/L Carbon Dioxide 28.2 (21.0-32.0) mmol/L Anion Gap 13.2 BUN 10.0 (7.0-18.0) mg/dL Creatinine 0.66 (0.55-1.02) mg/dL Est GFR ( Amer) >60 (>=60 mL/min/1.73m^2) Est GFR (Non-Af Amer) >60 (>=60 mL/min/1.73m^2) BUN/Creatinine Ratio 15.2 Glucose 202 H (74-106) mg/dL Calcium 9.0 (8.5-10.1) mg/dL Urine Color Lt. yellow (YELLOW) Urine Clarity Clear (CLEAR) Urine pH 7.0 (5.0-9.0) Ur Specific [place] 1.015 (1.005-1.025) Urine Protein Negative (NEG/TRACE) mg/dL Urine Glucose (UA) Negative (NEGATIVE) mg/dL Urine Ketones 15 A (NEGATIVE) mg/dL Urine Occult Blood Moderate A (NEGATIVE) Urine Nitrite Negative (NEGATIVE) Urine Bilirubin Negative (NEGATIVE) Urine Urobilinogen 0.2 (0.2-1.0) EU/dL Ur Leukocyte Esterase Negative (NEGATIVE) Urine RBC 2-5 A (0-2) #/HPF Urine WBC None seen (NONE SEEN) #/HPF Ur Squamous Epith Cells Rare (NONE/RARE) #/LPF Urine Crystals None seen (None Seen) #/HPF Urine Bacteria Trace A (NONE SEEN) #/HPF Urine Casts None seen (NONE SEEN) #/LPF Urine Mucus Trace A (NONE SEEN) Ur Culture Indicated? No Imaging Data CT scan - head: Radiologist's impression: ITS Impressions Head CT 01/29/25 11:25 IMPRESSION: No acute findings. Impression dictated by: Omid Messer M.D. 01/29/2025 12:24 PM Dictation Location: [place] [address] Electronically authenticated by: [id number] Y Date: 01/29/2025 12:24 ECG Data Attestation: I personally reviewed and interpreted this ECG as follows: (EKG on my interpretation shows sinus rhythm with a rate of 85 and no acute change) Discharge Plan Discharge Chief Complaint: Dizziness Clinical Impression: Vertigo Patient Disposition: Home, Self-Care Time of Disposition Decision: 12:31 Condition: Good Mode of Transportation: Private Vehicle Prescriptions / Home Meds: New diazepam [Valium] 5 mg tablet 5 mg PO Q8H PRN (Reason: dizziness or vertigo) 4 Days Qty: 14 0RF No Action amlodipine 5 mg tablet 5 mg PO DAILY metformin 500 mg tablet 500 mg PO DAILY meclizine 12.5 mg tablet 12.5 mg PO QID PRN (Reason: dizziness) calcium carbonate-vitamin D3 [Calcium 600 + D(3)] 600 mg-5 mcg (200 unit) capsule PO Print Language: Cymro Instructions: Vertigo (ED) Referrals: BRUCE WALLER [Primary Care Provider, Family Practice] - 1 week
--- OUTSIDE RECORDS SUMMARY | 2025-01-29 11:27 | XMS_ITS | CCD ---
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 Name Role Phone JOAQUIN DEVINE Primary Care Physician Gino Carrasquillo NEIDA, DR GINO Lara Attending Unavailable CARRASQUILLO, DR GINO Lara Admitting Unavailable ZIEBER, DR KYLIE Soto Consulting Unavailable CARRASQUILLO, DR GINO Lara Primary Care Unavailable CARRASQUILLO, DR GINO Lara Consulting Unavailable CARRASQUILLO, DR GINO Lara Primary Care Unavailable CARRASQUILLO, DR GINO Lara Attending Unavailable CHARLESTON, DR BRYCE Garcia Consulting Unavailable CARRASQUILLO, DR [...] Unavailable RAYNE JOHNSON Consulting Unavailable CARRASQUILLO, DR GINO Lara Primary Care Unavailable LARRY ., DR PASTOR Consulting Unavailable LARRY ., DR PASTOR Attending Unavailable LARRY ., DR PASTOR Admitting Unavailable ZIEBER, DR KYLIE Soto Consulting Unavailable SRIDHAR, DR JOAQUIN Porter Primary Care Unavailable LARRY ., DR PASTOR Consulting Unavailable LARRY ., DR PASTOR Attending Unavailable LARRY ., DR PASTOR Admitting Unavailable FURLONG, DR BALDERASNIS G Primary Care Unavailable LUE NORMA Henson Attending Unavailable LOBITO YEE Consulting Unavailable LUJane .NORMA Admitting Unavailable LUJane .NOMRA Consulting Unavailable GINO CARRASQUILLO Primary Care Physician Gab LAWTON, Kenji Mckeon Attending Unavailable Furlong DO, Joaquin G Primary Care Provider [phone] DIMASNG, JOAQUIN Porter Referring Unavailable FURLONG, JOAQUIN G Primary Care Unavailable Genoveva Hanna Attending Unavailable Furlong DO, Joaquin G Primary Care Provider Norma Pulido. Attending Unavailable Norma Pulido Attending Unavailable Norma Pulido Attending Unavailable Norma Pulido Admitting Unavailable FURLONGJOAQUIN Attending Unavailable FURLONGJOAQUIN Referring Unavailable FURLONG, JOAQUIN Porter Primary Care Unavailable FURLONGJOAQUIN Attending Unavailable FURLONGJOAQUIN Referring Unavailable FURLONG, JOAQUIN Porter Primary Care Unavailable AMBAR YOUNGER Attending Unavailable FURLONGJOAQUIN Referring Unavailable FURLONG, JOAQUIN Porter Primary Care Unavailable FURLONG, JOAQUIN Porter Attending Unavailable FURLONGJOAQUIN Referring Unavailable FURLONG, JOAQUIN Porter Primary Care Unavailable FURLONGJOAQUIN Attending Unavailable FURLONGJOAQUIN Referring Unavailable FURLONG, JOAQUIN G Primary Care Unavailable FURLONGJOAQUIN Attending Unavailable FURLONGJOAQUIN Referring Unavailable FURLONG, JOAQUIN Porter Primary Care Unavailable FURLONG, JOAQUIN Porter Attending Unavailable FURLONGJOAQUIN Referring Unavailable FURLONG, JOAQUIN G Primary Care Unavailable FURLONG, JOAQUIN Porter Attending Unavailable FURLONGJOAQUIN Referring Unavailable FURLONG, JOAQUIN G Primary Care Unavailable FURLONG, JOAQUIN G Referring Unavailable FURLONG, JOAQUIN G Primary Care Unavailable FURLONG, JOAQUIN G Attending Unavailable FURLONG, JOAQUIN G Referring Unavailable FURLONG, JOAQUIN G Primary Care Unavailable FURLONG, JOAQUIN G Referring Unavailable FURLONG, JOAQUIN G Primary Care Unavailable FURLONG, JOAQUIN Porter Attending Unavailable FURLONG, JOAQUIN Porter Referring Unavailable FURLONG, JOAQUIN G Primary Care Unavailable FURLONG, JOAQUIN G Referring Unavailable FURLONG, JOAQUIN Porter Primary Care Unavailable DIMASNG, JOAQUIN Porter Primary Care Unavailable CARLOS TOLEDO Attending Unavailable RENO MADRID Attending Unavailable TRAELONG, JOAQUIN G Primary Care Unavailable JACK DUPREE Referring Unavailable TRAELONG, JOAQUIN G Primary Care Unavailable DIMASNG, JOAQUIN Porter Primary Care Unavailable JUAN CARLOS MIRANDA Attending Unavaila ble Allergies Allergy Classification Reported Allergen(s) Allergy Type Date of Onset Reaction(s) Facility Angiotensin Converting Enzyme (KRISTAN) Inhibitors (1 source) Lisinopril; Translations: [lisinopril] Drug Allergy Cough (finding) [facility] Cephalosporins (antibiotic) (1 source) cefdinir; Translations: [cefdinir] Drug Allergy Eruption (morphologic abnormality) [facility] metFORMIN (1 source) metFORMIN; Translations: [metformin] Drug Allergy Other (qualifier value) [facility] Penicillins (antibiotic) (1 source) Amoxicillin; Translations: [amoxicillin] Drug Allergy Eruption of skin (disorder) [facility] Sulfamethoxazole / Trimethoprim (1 source) Sulfamethoxazole / Trimethoprim; Translations: [sulfamethoxazole-tr imethoprim] Drug Allergy Other (qualifier value) [facility] (20 sources) Amoxicillin; Translations: [amoxicillin] Drug Allergy 03-27-20 Eruption of skin (disorder), Hives, Rash [facility] (20 sources) cefdinir; Translations: [cefdinir] Drug Allergy 06-04-19 Eruption (morphologic abnormality), Rash, Hives [facility] (20 sources) Lisinopril; Translations: [lisinopril] Drug Allergy 06-04-19 22 Cough (finding), Cough [facility] (7 sources) metFORMIN; Translations: [metformin] Drug Allergy Other (qualifier value) [facility] (20 sources) Sulfamethoxazole / Trimethoprim; Translations: [sulfamethoxazole-tr imethoprim] Drug Allergy 06-04-19 22 Other (qualifier value), Other (See Comments) [facility] (1 source) Amino Acids Drug Allergy 07-16-[address] [facility] (1 source) Amoxicillin Drug Allergy 06-06-[address] [facility] (1 source) cefdinir Drug Allergy 07-16-[address] [facility] (1 source) metFORMIN Drug Allergy 07-16-[address] [facility] (1 source) Sulfamethoxazole / Trimethoprim Drug Allergy 07-16-[address] [facility] (3 sources) Sulfamethoxazole / Trimethoprim; Translations: [SULFAMETHOXAZOLE-TR IMETHOPRIM] Drug Allergy 06-04-19 22 [facility] Medications Current Medications Medication Drug [...] Twice a day for 30 days Active benzonatate 200 mg oral capsule (3 sources) Non-narcotic Antitussive Start: 05-19-2023 take 1 capsule by mouth every eight hours Benzonatate 200 MG 1 capsule Orally Three times a day for 10 day(s) Apr, Active blood-glucose meter (ONETOUCH VERIO FLEX METER) misc (16 sources) Start: 02-21-2024 blood-glucose meter (ONETOUCH VERIO FLEX METER) misc 1 Unit by miscellaneous route in the morning. 1 each 02/21/2024 Active calcium carbonate 1500 mg / cholecalciferol 0.01 mg oral tablet (20 sources) Vitamin D take 1 tablet by [...] Ordered losartan potassium 25 mg oral tablet (18 sources) Angiotensin 2 Receptor Aileen take 1 tablet by mouth every twenty-four hours Losartan Potassium 25 MG 1 tablet Orally Once a day Active magnesium oxide 400 mg oral tablet (6 sources) Start: 10-05-2024 End: 11-20-2024 take 1 tablet by mouth in the morning magnesium oxide (MAGOX) 400 mg tablet Indications: Hypomagnesemia Take 1 tablet (400 mg total) by mouth in the morning. 30 tablet 2 10/05/2024 11/20/2024 Discontinued meloxicam 7.5 mg oral tablet (20 sources) [...] mg oral tablet (20 sources) Biguanide Start: 05-26-2024 End: 11-16-2024 take 1 tablet by mouth once daily at breakfast, then take 1 tablet by mouth in the morning, then take 1 tablet by mouth at mealtime metFORMIN (GLUCOPHAGE) 500 mg tablet Take 1 tablet (500 mg total) by mouth daily with breakfast. TAKE 1 TABLET BY MOUTH IN THE MORNING AND 1 IN THE EVENING WITH MEALS 90 tablet 1 11/16/2024 Active Start: 06-04-2021 End: 05-23-2024 take 1 tablet by mouth in the morning, then take 1 tablet by mouth at mealtime metFORMIN (GLUCOPHAGE) 500 mg tablet TAKE 1 TABLET BY MOUTH IN THE MORNING AND 1 IN THE EVENING WITH MEALS 180 tablet 05/23/2024 Active take 1 tablet by rebekah th [...] Once a day for 90 days Active methocarbamol 500 mg oral tablet (3 sources) Muscle Relaxant Start: 04-18-2024 End: 06-02-2024 take 1 tablet by mouth every six hours as needed methocarbamoL (ROBAXIN) 500 mg tablet Take 1 tablet (500 mg total) by mouth every 6 (six) hours as needed for muscle spasms. 30 tablet 1 04/18/2024 06/02/2024 Discontinued (Therapy completed) pioglitazone 15 mg oral tablet (18 sources) Peroxisome Proliferator Receptor alpha Agonist, Peroxisome Proliferator Receptor gamma Agonist, Thiazolidinedione take 1 tablet by mouth every twenty-four hours Pioglitazone HCl 15 MG 1 tablet Orally Once a day Active tiZANidine 4 mg oral tablet (4 sources) Central alpha-2 Adrenergic Agonist tiZANidine HCl 4 MG 1/2-1 tablet HS Active Vitamin D3 (6 sources) Start: 06-04-2021 Vitamin D3 Refills(s) 0 Start Date: 06/04/21 Status: Ordered Completed/Discontinued Medications Medication Drug Class(es) Dates Sig (Normalized) Sig (Original) aspirin 81 mg delayed release oral tablet (17 sources) Platelet Aggregation Inhibitor, Nonsteroidal Anti-inflammatory Drug Start: 11-09-2023 End: 10-23-2024 take 1 tablet by mouth in the morning aspirin 81 mg Indications: Type 2 diabetes mellitus without complication, without long-term current use of insulin ([facility]) Take 1 tablet (81 mg total) by mouth in the morning. 11/09/2023 10/23/2024 Discontinued (Therapy completed) Start: 06-04-2021 take 1 mg by mouth e very four hours aspirin 81 mg oral capsule mg cap(s), Oral, q4hr, Refills(s) 0 Start Date: 06/04/21 Status: Ordered atorvastatin 10 mg oral tablet (20 sources) HMG-CoA Reductase Inhibitor Start: 08-26-2023 End: 10-05-2024 take 1 tablet by mouth in the morning atorvastatin (LIPITOR) 10 mg tablet TAKE 1 TABLET BY MOUTH IN THE MORNING 30 tablet 5 06/23/2024 10/05/2024 Discontinued (Side effects) Start: 06-04-2021 take 1 mg by mouth once daily atorvastatin 20 mg Tab mg tab(s), Oral, Daily, Refills(s) 0 Start Date: 06/04/21 Status: Ordered loratadine 10 mg oral tablet (7 sources) Start: 06-02-2024 End: 10-05-2024 take 1 tablet by mouth once daily as needed loratadine (CLARITIN) 10 mg tablet Take 1 tablet (10 mg total) by mouth daily as needed for allergies. 30 tablet 1 06/02/2024 10/05/2024 Discontinued (Therapy completed) meclizine hydrochloride 25 mg oral tablet (20 sources) Antiemetic Start: 09-10-2024 End: 10-05-2024 take 1 tablet by mouth three times daily as needed for dizziness meclizine (ANTIVERT) 25 mg tablet Take 1 tablet (25 mg total) by mouth 3 (three) times a day as needed for dizziness. 20 tablet 09/10/2024 10/05/2024 Discontinued (Therapy completed) Start: 06-04-2021 take 1 mg by mouth t hree times daily meclizine 25 mg Tab mg tab(s), Oral, TID, Refills(s) 0 Start Date: 06/04/21 Status: Ordered take 1 tablet by rebekah th every twelve hours Meclizine HCl 25 MG 1 tablet as needed Orally every 12 hrs Active ondansetron 4 mg oral tablet (4 sources) Serotonin-3 Receptor Antagonist Start: 09-10-2024 End: 10-05-2024 take 1 tablet by mouth every eight hours as needed for nausea ondansetron (ZOFRAN) 4 mg tablet Indications: Peripheral vertigo, unspecified laterality Take 1 tablet (4 mg total) by mouth every 8 (eight) hours as needed for nausea or vomiting for up to 12 doses. 12 tablet 09/10/2024 10/05/2024 Discontinued (Therapy completed) Problems Active Problems Problem Classification Problem Date Documented Da te Episodic/Chronic Anxiety disorders (20 sources) Generalized anxiety disorder; Translations: [Generalized anxiety [...] hyperlipidemia] Onset: 03-10-2022 Chronic Diverticulosis and diverticulitis (16 sources) Diverticular disease; Translations: [Diverticulosis of intestine, part unspecified, without perforation or abscess without bleeding] Onset: 03-27-2022 03-27-2022 Chronic Essential hypertension (20 sources) Essential hypertension; Translations: [Essential (primary) hypertension] Onset: 08-26-2020 Chronic Fluid and electrolyte disorders (5 sources) Hypokalemia; Translations: [Hypokalemia] Onset: 11-20-2024 11-20-2024 Episodic Genitourinary symptoms and ill-defined conditions (20 sources) Unspecified urinary incontinence; Translations: [Urinary incontinence] Onset: 11-26-2021 Chronic Headache; including migraine (16 sources) Tension-type headache; Translations: [Tension-type headache, unspecified, [...] [OTHER CHEST PAIN] Onset: 07-16-2022 Episodic Osteoarthritis (16 sources) Degenerative joint disease of shoulder region; Translations: [Primary osteoarthritis, unspecified shoulder] Onset: 03-19-2021 03-27-2022 Chronic Osteoporosis (16 sources) Senile osteoporosis; Translations: [Age-related osteoporosis without current pathological fracture] Onset: 03-27-2022 07-06-2023 Chronic Other acquired deformities (16 sources) Contracture of joint of right ankle; Translations: [Contracture, right ankle] Onset: 03-27-2022 03-27-2022 Chronic Other aftercare (2 sources) Long-term current use of aspirin; Translations: [medical scheduler (current) use of aspirin] Onset: 11-26-2021 Episodic Other aftercare (1 source) medical scheduler (current) use of oral hypoglycemic drugs; Translations: [HALF-WAY USE ORAL HYPOGLYCEMIC DX] Onset: 07-20-2022 Episodic Other aftercare (1 source) Other 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 control analyst (current) drug therapy; Translations: [OTH BUILDING ENERGY RETROFIT TECHNICIAN CURRENT DRUG THERAPY] Onset: 07-20-2022 Episodic Other bone disease and musculoskeletal deformities (1 source) Other specified disorders of bone density and structure, unspecified site; Translations: [OTH D/O BONE DEN STRUCT UNS SITE] Onset: 08-15-2022 Episodic Other connective tissue disease (3 sources) Pain in right leg; Translations: [PAIN IN RIGHT LEG] Onset: 08-15-2022 Episodic Other connective tissue disease (2 sources) Cramp and spasm; Translations: [CRAMP AND SPASM] Onset: 08-15-2022 Episodic Other connective tissue disease (2 sources) Pain in lower limb Onset: 12-31-2023 Episodic Other diseases of bladder and urethra (2 sources) Detrusor overactivity; Translations: [Overactive bladder] Onset: 12-15-2023 Chronic Other diseases of bladder and urethra (1 source) Overactive bladder 04-05-2024 Chronic Other diseases of kidney and ureters (3 sources) Acquired renal cyst without neoplastic change; Translations: [Cyst of kidney, acquired] Onset: 11-26-2021 Episodic Other ear and sense organ disorders (16 sources) Chronic non-infective otitis externa; Translations: [Other otitis externa, bilateral] Onset: 03-27-2022 03-27-2022 Chronic Other ear and sense organ disorders (16 sources) Sensorineural hearing loss, bilateral; Translations: [Sensorineural hearing loss, bilateral] Onset: 03-27-2022 07-06-2023 Chronic Other ear and sense organ disorders (2 sources) Excessive cerumen in ear canal ; Translations: [Impacted cerumen, right ear] 06-02-2024 Episodic Other ear and sense organ disorders (1 source) Impacted cerumen in right ear; Translations: [Impacted cerumen, right ear] 09-11-2024 Episodic Other hereditary and degenerative nervous system conditions (16 sources) Finding of scapular structure; Translations: [Other specified extrapyramidal and movement disorders] Onset: 03-27-2022 03-27-2022 Chronic Other inflammatory condition of skin (16 sources) Psoriasis; Translations: [Psoriasis, unspecified] Onset: 03-27-2022 03-27-2022 Chronic Other nervous system disorders (16 sources) Mortons neuroma of right foot; Translations: [Lesion of plantar nerve, right lower limb] Onset: 03-27-2022 03-27-2022 Chronic Other nervous system disorders (1 source) Other chronic pain; Translations: [Other chronic pain] Onset: 12-31-2023 Chronic Other nutritional; endocrine; and metabolic disorders (5 sources) Hypomagnesemia; Translations: [Hypomagnesemia] Onset: 11-20-2024 10-05-2024 Chronic Other nutritional; endocrine; and metabolic disorders (2 sources) Hypomagnesemia; Translations: [Hypomagnesemia] Onset: 09-10-2024 Chronic Other nutritional; endocrine; and metabolic disorders (1 source) Overweight; Translations: [Overweight] Onset: 11-20-2024 Episodic Other upper respiratory disease (16 sources) Allergic rhinitis; Translations: [Allergic rhinitis, unspecified] Onset: 03-27-2022 03-27-2022 Chronic Other upper respiratory infections (1 source) Acute maxillary sinusitis, unspecified Episodic Residual codes; unclassified (4 sources) Asymptomatic menopausal state; Translations: [ASYMPTOMATIC MENOPAUSAL STATE] Onset: 08-11-2022 Episodic Screening and history of mental health and substance abuse codes (1 source) Patient encounter status; Translations: [Encounter for screening for depression] 10-10-2024 Episodic Spondylosis; intervertebral disc disorders; other back problems (18 sources) Degeneration of cervical intervertebral disc; Translations: [Other cervical disc degeneration, unspecified cervical region] Onset: 08-29-2015 04-18-2024 Chronic Unclassified (6 sources) Long-term current use of aspirin 06-04-2021 Unclassified (1 source) LOW BACK PAIN, UNSPECIFIED; Translations: [LOW BACK PAIN, UNSPECIFIED] Onset: 08-15-2022 Unclassified (4 sources) Asymptomatic microscopic hematuria 11-26-2022 Unclassified (4 sources) Finding of sensation of bladder 12-09-2022 Unclassified (2 sources) Autogenerated Problem Onset: 10-05-2024 10-05-2024 Unclassified (1 source) Earache Onset: 09-11-2024 Unclassified (1 source) itchy ear Onset: 06-02-2024 Unclassified (1 source) Suspicious Skin Lesion Onset: 03-07-2024 Unclassified (1 source) Dizziness; Vomiting Onset: 09-10-2024 Varicose veins of lower extremity (16 sources) Varicose veins of lower extremity; Translations: [Varicose veins of bilateral lower extremities with pain] Episodic Past or Other Problems Problem Classification Problem Date Documented Da te Episodic/Chronic Allergic reactions (18 sources) Eczema; Translations: [Dermatitis, unspecified] Onset: 2 03-27-2022 Episodic Conditions associated with dizziness or vertigo (20 sources) Dizziness and giddiness; Translations: [Benign paroxysmal positional vertigo] Onset: 6 Episodic Disorders of teeth and jaw (16 sources) Temporomandibular joint disorder; Translations: [Unspecified temporomandibular joint disorder, unspecified side] Onset: 8 03-27-2022 Episodic E Codes: Fall (1 source) Fall on same level from slipping, tripping and stumbling without subsequent striking against object, initial encounter; Translations: [FALL SAME LVL SLIP NO STRK OBJ INIT] Onset: 2 Episodic Gastritis and duodenitis (16 sources) Duodenitis; Translations: [Duodenitis without bleeding] Onset: 1 03-27-2022 Episodic Genitourinary symptoms and ill-defined conditions (20 sources) Microscopic hematuria; Translations: [Asymptomatic microscopic hematuria] Onset: 2 Episodic Headache; including migraine (6 sources) Headache; including migraine; Translations: [HEADACHE UNSPECIFIED] Onset: 2 Immunizations and screening for infectious disease (1 source) Encounter for screening for human papillomavirus (HPV); Translations: [ENC SCREENING HUMAN PAPILLOMAVIRUS] Onset: 2 Episodic Mood disorders (16 sources) Depressive disorder; Translations: [Depressive disorder] Onset: 2 Resolved: 4 07-06-2023 Chronic Mood disorders (16 sources) Mood disorders Onset: 4 Resolved: 5 02-21-2024 Nausea and vomiting (2 sources) Nausea with vomiting, unspecified; Translations: [Vomiting] Onset: 5 Episodic Neoplasms of unspecified nature or uncertain behavior (1 source) Neoplasm of uncertain behavior of skin; Translations: [Neoplasm of uncertain behavior of skin] Onset: 4 Episodic Nutritional deficiencies (16 sources) Cobalamin deficiency; Translations: [Deficiency of other specified B group vitamins] Onset: 2 03-27-2022 Episodic Other and unspecified benign neoplasm (16 sources) Cavernous hemangioma; Translations: [Hemangioma unspecified site] Onset: 2 03-27-2022 Episodic Other bone disease and musculoskeletal deformities (16 sources) Cervical somatic dysfunction; Translations: [Segmental and somatic dysfunction of cervical region] Onset: 2 04-13-2022 Episodic Other bone disease and musculoskeletal deformities (16 sources) Segmental and somatic dysfunction; Translations: [Segmental and somatic dysfunction of thoracic region] Onset: 2 04-13-2022 Episodic Other circulatory disease (16 sources) Elevated blood pressure; Translations: [Elevated blood-pressure reading, without diagnosis of hypertension] Onset: 9 03-27-2022 Episodic Other connective tissue disease (17 sources) Muscle pain; Translations: [Myalgia, unspecified site] Onset: 2 03-27-2022 Episodic Other diseases of kidney and ureters (20 sources) Cyst of kidney; Translations: [Cyst of kidney, acquired] Onset: 4 11-26-2022 Episodic Other ear and sense organ disorders (1 source) Impacted cerumen, right ear; Translations: [Impacted cerumen, right ear] Onset: 5 Episodic Other gastrointestinal disorders (1 source) Constipation, unspecified; Translations: [Constipation, unspecified] Onset: 5 Episodic Other gastrointestinal disorders (1 source) Constipation Onset: 5 Episodic Other gastrointestinal disorders (1 source) Diarrhea Onset: 5 Episodic Other injuries and conditions due to external causes (1 source) Unspecified injury of head, initial encounter; Translations: [UNSPECIFIED INJURY HEAD INITIAL ENC] Onset: 2 Episodic Other nutritional; endocrine; and metabolic disorders (17 sources) Overweight; Translations: [Overweight] Onset: 2 Resolved: 4 07-06-2023 Episodic Other screening for suspected conditions (not mental disorders or infectious disease) (20 sources) Encounter for screening mammogram for malignant neoplasm of breast; Translations: [Other abnormal and inconclusive findings on diagnostic imaging of breast] Onset: 2 Episodic Other upper respiratory disease (16 sources) Deviated nasal septum; Translations: [Deviated nasal septum] Onset: 9 03-27-2022 Episodic Phlebitis; thrombophlebitis and thromboembolism (16 sources) Acute deep venous thrombosis of calf; Translations: [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] Onset: 4 Resolved: 5 07-06-2023 Episodic Residual codes; unclassified (1 source) Acquired absence of both cervix and uterus; Translations: [ACQUIRED ABSENCE BOTH CERVIX AND UTERUS] Onset: 2 Episodic Spondylosis; intervertebral disc disorders; other back problems (5 sources) Cervicalgia; Translations: [Radiculopathy, lumbar region] Onset: 2 Episodic Unclassified (1 source) Low back pain, unspecified M54.50 Unclassified (1 source) Vaginal yeast infection B37.31 Unclassified (1 source) 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 Unclassified (16 sources) Onset: 4 Resolved: 5 09-14-2023 Unclassified (1 source) Patient encounter status 07-06-2024 Results Test Name Value Interpretation Reference Range Facility D-DIMERon 01-11-2025 D DIMER 204 ug/mL Normal 1-255 [facility] Comment on above: Result Comment: Resu lts <255 ng/mL DDU: The presensence of a VTE can safely be excluded with a negative D-Dimer result and Wells score. A negative result doesn't exclude the possibility of DIC. The test should be repeated along with other diagnostic tests if the patient's symptoms persist or worsen. Performed By: #### D DMR #### [facility] ([address] [address] VIR BASIC METABOLIC PANELon 10-24 Anion gap [Moles/Vol] 10 mmol/L Normal 5-15 [facility] Comment on above: Performed By: #### B MP #### [facility] ([facility]) [address] [place] [address] VIR Calcium [Mass/Vol] 9.4 mg/dL Normal 8.5-10.5 [facility] Comment on above: Performed By: #### B MP #### [facility] ([facility]) [address] [place] [address] VIR Chloride [Moles/Vol] 107 mmol/L Normal 98-109 [facility] Comment on above: Performed By: #### B MP #### [facility] ([facility]) [address] [place] [address] VIR CO2 [Moles/Vol] 26 mmol/L Normal 22-32 [facility] Comment on above: Performed By: #### B MP #### [facility] ([facility]) [address] [place] [address] VIR Creatinine [Mass/Vol] 0.68 mg/dL Normal 0.40-1.00 [facility] Comment on above: Result Comment: METH OD TRACEABLE TO IDMS STANDARD Performed By: #### B MP #### [facility] ([facility]) [address] [place] [address] VIR EGFR (CKD-EPI) NON-RACE DEPENDENT >^90 Normal >=60 [facility] Comment on above: Result Comment: Repo rted eGFR is based on the CKD-EPI 2020 equation that does not use a race coefficient. Performed By: #### B MP #### [facility] ([facility]) [address] [place] [address] VIR Glucose [Mass/Vol] 144 mg/dL High 65-99 [facility] Comment on above: Performed By: #### B MP #### [facility] ([facility]) [address] [place] [address] VIR Potassium [Moles/Vol] 4.1 mmol/L Normal 3.5-5.0 [facility] Comment on above: Performed By: #### B MP #### [facility] ([facility]) [address] [place] [address] VIR Sodium [Moles/Vol] 143 mmol/L Normal 134-146 [facility] Comment on above: Performed By: #### B MP #### [facility] ([facility]) [address] [place] [address] VIR Urea nitrogen [Mass/Vol] 9 mg/dL Normal 5-27 [facility] Comment on above: Performed By: #### B MP #### [facility] ([facility]) [address] [place] [address] VIR HEMOGLOBIN A1Con 11-20-2024 Glucose [Mass/Vol] 154 mg/dL Normal [facility] Comment on above: Performed By: #### H A1C #### [facility] ([facility]) [address] [place] [address] VIR HbA1c (Bld) [Mass fraction] 7.0 % High 4.4-5.6 [facility] Comment on above: Result Comment: ADA Guidelines Result HgbA1c Normal : less than 5.7 % Prediabetes : 5.7 % to 6.4 % Diabetes : > 6.4 % Use with caution in patients with abnormal hemoglobin variants as the half-life of red blood cells and in vivo glycation rates are affected. Performed By: #### H A1C #### [facility] ([facility]) [address] [place] [address] VIR MAGNESIUMon 11-20-2024 Magnesium [Mass/Vol] 1.9 mg/dL Normal 1.8-2.6 [facility] Comment on above: Performed By: #### M G #### [facility] ([facility]) [address] [place] [address] VIR TSHon 11-20-2024 TSH 2.06 uIU/mL Normal 0.49-4.67 [facility] Comment on above: Performed By: #### T SH #### [facility] ([facility]) [address] [place] [address] VIR COMPREHENSIVE METABOLIC PANE Navid 10-05-2024 COMPREHENSIVE METABOLIC PANEL CMP COMPREHENSIVE METABOLIC PANEL Cancelled Normal [facility] HEMOGLOBIN A1Con 10-05-2024 HEMOGLOBIN A1C HA1C HEMOGLOBIN A1C Cancelled Normal [facility] MAGNESIUMon 10-05-2024 MAGNESIUM MG MAGNESIUM Cancelled Normal [facility] Reminderson 10-02-2024 Reminders Reminders From: Gi Su To: PROSPER - Recalls Lujane; Sent: 04/05/2024 11:10:16 EST Show up: 08/03/2024 12:10:00 EDT Subject: Renal US and KUB Due Date/Time: 08/03/2024 12:10:00 EDT Reminder Message Renal US and KUB prior to 6 mos appt. [facility]. Orders created. Pt needs appt scheduled (technically in September). Pt has not yet scheduled YAMILKA/KUB at [facility] (spoke with An in radiology and confirmed). Spoke to patient she opted to cancel her september follow due to other health issues she has been having, stated that she would call to reschedule when she felt better. Patient reports that she is dealing with severe vertigo and is unable to come for appointment at this time. Patient says she will call when she is able to reschedule. Patient has history of kidney stones and microscopic hematuria. Does patient need to be tracked to make sure she reschedules? From: Aarti Denton (EU - Recalls Ashok) To: Ashok LAWTON, Norma Chambers; Sent: 09/29/2024 13:47:39 EDT ! Show up: 09/29/2024 13:47:00 EDT From: Norma Pulido MD To: Gi Su; Sent: 10/02/2024 16:46:00 EDT Show up: 10/02/2024 16:45:00 EDT Subject: RE: Renal US and KUB No tracking, prior hematuria workup neg Thanks, KML Normal [facility] CBC AND AUTO DIFFon 09-10-20 25 ABSOLUTE BASOPHIL 0.1 X10E9/L Normal 0.0-0.2 [facility] Comment on above: Performed By: #### C BCA, CMP, 56700-0 #### [facility] ([id number]) [address] [place] [address] ABSOLUTE NEUTROPHIL 3.7 X10E9/L Normal 1.5-6.6 [facility] Comment on above: Performed By: #### C BCA, CMP, 06277-5 #### [facility] ([id number]) [address] [place] [address] 00610 Basophils/100 WBC (Bld) 0.9 % Normal [facility] Comment on above: Performed By: #### Satinder CHAVES [facility], #### [facility] ([id number]) [address] [place] [address] Eosinophils (Bld) [#/Vol] 0.2 10*3/uL Normal 0.0-0.4 [facility] Comment on above: Performed By: #### Satinder CHAVES [facility], #### [facility] ([id number]) [address] [place] [address] 33451 Eosinophils/100 WBC (Bld) 3.0 % Normal [facility] Comment on above: Performed By: #### Satinder CHAVES CMP, #### [facility] ([id number]) [address] [place] [address] 12438 Erythrocyte distribution width (RBC) [Ratio] 13.1 % Normal 11.5-15.0 [facility] Comment on above: Performed By: #### Satinder CHAVES [facility], #### [facility] ([id number]) [address] [place] [address] 57875 Hematocrit (Bld) [Volume fraction] 38.1 % Normal 35-47 [facility] Comment on above: Performed By: #### Satinder CHAVES CMP, #### [facility] ([id number]) [address] [place] [address] 31296 Hemoglobin (Bld) [Mass/Vol] 13.3 g/dL Normal 11.7-15.5 [facility] Comment on above: Performed By: #### Satinder CHAVES CMP, #### [facility] ([id number]) [address] [place] [address] 65731 Lymphocytes (Bld) [#/Vol] 2.3 10*3/uL Normal 1.0-3.5 [facility] Comment on above: Performed By: #### Satinder CHAVES CMP, 13553-9 #### [facility] ([id number]) [address] [place] [address] 24254 Lymphocytes/100 WBC (Bld) 34.1 % Normal [facility] Comment on above: Performed By: #### Satinder CHAVES CMP, #### [facility] ([id number]) [address] [place] [address] 67101 MCH (RBC) [Entitic mass] 29.9 pg Normal 27-34 [facility] Comment on above: Performed By: #### Satinder CHAVES CMP, #### [facility] ([id number]) [address] [place] [address] 35562 MCHC (RBC) [Mass/Vol] 34.9 g/dL Normal 32-36 [facility] Comment on above: Performed By: #### Satinder CHAVES CMP, #### [facility] ([id number]) [address] [place] [address] 69943 MCV (RBC) [Entitic vol] 86 fL Normal 80-100 [facility] Comment on above: Performed By: #### Satinder CHAVES CMP, #### [facility] ([id number]) [address] [place] [address] 29924 Monocytes (Bld) [#/Vol] 0.5 10*3/uL Normal 0-0.9 [facility] Comment on above: Performed By: #### Satinder CHAVES CMP, #### [facility] ([id number]) [address] [place] [address] 09850 Monocytes/100 WBC (Bld) 6.8 % Normal [facility] Comment on above: Performed By: #### Satinder CHAVES CMP, #### [facility] ([id number]) [address] [place] [address] 53397 Neutrophils/100 WBC (Bld) 55.2 % Normal [facility] Comment on above: Performed By: #### Satinder CHAVES CMP, 80183-3 #### [facility] ([id number]) [address] [place] [address] 05759 Platelet mean volume (Bld) [Entitic vol] 9.3 fL Normal 7-12 [facility] Comment on above: Performed By: #### C ANDIE, CMP, 44156-0 #### [facility] ([id number]) [address] [place] [address] 34109 Platelets (Bld) [#/Vol] 191 10*3/uL Normal 150-450 [facility] Comment on above: Performed By: #### Satinder CHAVES, CMP, 86258-3 #### [facility] ([id number]) [address] [place] [address] 46608 RBC COUNT 4.45 X10E12/L Normal 3.80-5.20 [facility] Comment on above: Performed By: #### Satinder CHAVES, CMP, #### [facility] ([id number]) [address] [place] [address] 26405 WBC (Bld) [#/Vol] 6.6 10*3/uL Normal 4.0-11.0 [facility] Comment on above: Performed By: #### C BCA, CMP, #### [facility] ([id number]) [address] [place] [address] 43065 COMPREHENSIVE METABOLIC PANE Navid 09-10-2024 Albumin [Mass/Vol] 4.2 g/dL Normal 3.2-5.3 [facility] Comment on above: Performed By: #### Satinder BCA, CMP, #### [facility] ([id number]) [address] [place] [address] 34640 ALP [Catalytic activity/Vol] 47 U/L Normal 39-130 [facility] Comment on above: Performed By: #### C BCA, CMP, #### [facility] ([id number]) [address] [place] [address] 99068 ALT [Catalytic activity/Vol] 12 U/L Normal 0-31 [facility] Comment on above: Performed By: #### C BCA, CMP, #### [facility] ([id number]) [address] [place] [address] 27414 Anion gap [Moles/Vol] 9 mmol/L Normal 5-15 [facility] Comment on above: Performed By: #### C ANDIE, CMP, #### [facility] ([id number]) [address] [place] [address] 96455 AST [Catalytic activity/Vol] 17 U/L Normal 0-41 [facility] Comment on above: Performed By: #### C ANDIE, CMP, #### [facility] ([id number]) [address] [place] [address] 07194 Bilirubin [Mass/Vol] 1.0 mg/dL Normal 0.3-1.2 [facility] Comment on above: Performed By: #### C BCA, CMP, #### [facility] ([id number]) [address] [place] [address] 84583 Calcium [Mass/Vol] 9.3 mg/dL Normal 8.5-10.5 [facility] Comment on above: Performed By: #### C BCA, CMP, #### [facility] ([id number]) [address] [place] [address] 79530 Chloride [Moles/Vol] 102 mmol/L Normal 98-109 [facility] Comment on above: Performed By: #### C STEVE CHAVES, #### [facility] ([id number]) [address] [place] [address] 28130 CO2 [Moles/Vol] 26 mmol/L Normal 22-32 [facility] Comment on above: Performed By: #### C STEVE CHAVES, 17152-7 #### [facility] ([id number]) [address] [place] [address] 15236 Creatinine [Mass/Vol] 0.78 mg/dL Normal 0.40-1.00 [facility] Comment on above: Result Comment: METH OD TRACEABLE TO IDMS STANDARD Performed By: #### C STEVE CHAVES, #### [facility] ([id number]) [address] [place] [address] 85143 GFR/1.73 sq M.predicted among non-blacks MDRD (S/P/Bld) [Vol rate/Area] 80 mL/min/{1.73_m2} Normal >59 [facility] Comment on above: Result Comment: Reported eGFR is based on the CKD-EPI 2020 equation that does not use a race coefficient. Performed By: #### C STEVE CHAVES, 22781-7 #### [facility] ([id number]) [address] [place] [address] 23226 Glucose [Mass/Vol] 201 mg/dL High 65-99 [facility] Comment on above: Performed By: #### C STEVE CHAVES, #### [facility] ([id number]) [address] [place] [address] 64022 Potassium [Moles/Vol] 3.4 mmol/L Low 3.5-5.0 [facility] Comment on above: Performed By: #### C STEVE CHAVES, #### [facility] ([id number]) [address] [place] [address] 74345 Protein [Mass/Vol] 7.1 g/dL Normal 6.0-8.0 [facility] Comment on above: Performed By: #### C ANDIE [facility], 83100-4 #### [facility] ([id number]) [address] [place] [address] Sodium [Moles/Vol] 137 mmol/L Normal 134-146 [facility] Comment on above: Performed By: #### C STEVE CHAVES, 68679-6 #### [facility] ([id number]) [address] [place] [address] 15313 Urea nitrogen [Mass/Vol] 11 mg/dL Normal 5-27 [facility] Comment on above: Performed By: #### C STEVE CHAVES, 31578-6 #### [facility] ([id number]) [address] [place] [address] BRAIN WO CONTon CT BRAIN WO CONT CT BRAIN WO CONT HISTORY and Tech Notes: Dizziness Acute onset of dizziness and vomiting PROCEDURE: CT brain Automated exposure control was utilized COMPARISON: August 2018 FINDINGS: Visualized paranasal sinuses and mastoid air cells look well aerated. Skull base grossly intact No acute bleed or suspicious extra-axial fluid collection seen. No hydrocephalus. No convincing sign to suggest an acute infarct or mass. Moderate multifocal hypodense change most consistent with chronic ischemia If there are continued symptoms and more detailed imaging needed, consider MRI if no contraindication, and/or other short-term follow-up progress imaging IMPRESSION: No convincing acute intracranial findings. All CT scans at this facility use dose modulation, iterative reconstruction, and/or weight based dosing when appropriate to reduce radiation dose to as low as reasonably achievable. Finalized by Domenico Soares MD on 09/10/2024 11:08 AM Normal [facility] Glucose Glucometer (BldC) [M ass/Vol]on 09-10-2024 Glucose [Mass/Vol] 176 mg/dL High 65-99 [facility] MAGNESIUMon 09-10-2024 Magnesium [Mass/Vol] 1.6 mg/dL Low 1.8-2.6 [facility] Comment on above: Performed By: #### C BCA, CMP, 26468-1 #### [facility] ([id number]) [address] [place] [address] 19238 Troponin I.cardiac High sens itivity method [Mass/Vol]on 09-10-2024 1 HOUR TROP I, HIGH SENSITIVITY 5 ng/L Normal <16 [facility] Comment on above: Performed By: #### 8 9579-7 #### [facility] ([id number]) [address] [place] [address] 17970 URN MACROSCOPIC NURon 2024 BILIRUBIN MAMI Negative Normal NEG [facility] Comment on above: Performed By: #### N UM #### [facility] ([id number]) [address] [place] [address] 71667 BLOOD/HGB MAMI Small Abnormal NEG [facility] Comment on above: Performed By: #### N UM #### [facility] ([id number]) [address] [place] [address] 54665 GLUCOSE MAMI Negative Normal NEG [facility] Comment on above: Performed By: #### N UM #### [facility] ([id number]) [address] [place] [address] 85020 KETONES MAMI Negative Normal NEG [facility] Comment on above: Performed By: #### N UM #### [facility] ([id number]) [address] [place] [address] 62663 LEUKOCYTE ESTERASE MAMI Negative Normal NEG [facility] Comment on above: Performed By: #### N UM #### [facility] ([id number]) [address] [place] [address] 63963 NITRITE MAMI Negative Normal NEG [facility] Comment on above: Performed By: #### N UM #### [facility] ([id number]) [address] [place] [address] 15146 PH MAMI 6.0 Normal 5.0-8.5 [facility] Comment on above: Performed By: #### N UM #### [facility] ([id number]) [address] [place] [address] 65314 PROTEIN MAMI Negative Normal NEG [facility] Comment on above: Performed By: #### N UM #### [facility] ([id number]) [address] [place] [address] 84491 SPECIFIC GRAVITY MAMI <=1.005 Normal 1.003-1.035 [facility] Comment on above: Performed By: #### N UM #### [facility] ([id number]) [address] [place] [address] 04249 UROBILINOGEN MAMI 0.2 eu/dL Normal <1.1 [facility] Comment on above: Performed By: #### N UM #### [facility] ([id number]) [address] [place] [address] 04944 COMPREHENSIVE METABOLIC PANE Navid 07-06-2024 Albumin [Mass/Vol] 4.3 g/dL Normal 3.2-5.3 [facility] Comment on above: Performed By: #### C MAGGIE 68905-8, HA1C #### [facility] ([id number]) [address] [facility] [address] [facility], [address] [place] [address] ALP [Catalytic activity/Vol] 47 U/L Normal 39-130 [facility] Comment on above: Performed By: #### Satinder SERRANO, 65336-5, HA1C #### [facility] ([id number]) [address], [address] [place] [address] ALT [Catalytic activity/Vol] 10 U/L Normal 0-31 [facility] Comment on above: Performed By: #### Satinder SERRANO, 30950-5, HA1C #### [facility] ([id number]) [address], [address] [place] [address] Anion gap [Moles/Vol] 11 mmol/L Normal 5-15 [facility] Comment on above: Performed By: #### Satinder SERRANO, 59267-9, HA1C #### [facility] ([id number]) [address], [address] [place] [address] AST [Catalytic activity/Vol] 17 U/L Normal 0-41 [facility] Comment on above: Performed By: #### Satinder SERRANO, 18453-9, HA1C #### [facility] ([id number]) [address], [address] [place] [address] Bilirubin [Mass/Vol] 0.8 mg/dL Normal 0.3-1.2 [facility] Comment on above: Performed By: #### Satinder SERRANO, 49105-4, HA1C #### [facility] ([id number]) [address], [address] [place] [address] Calcium [Mass/Vol] 9.9 mg/dL Normal 8.5-10.5 [facility] Comment on above: Performed By: #### Satinder SERRANO, 72483-9, HA1C #### [facility] ([id number]) [address], [address] [place] [address] Chloride [Moles/Vol] 104 mmol/L Normal 98-109 [facility] Comment on above: Performed By: #### Satinder SERRANO, 90583-2, HA1C #### [facility] ([id number]) [address] [place] [address] CO2 [Moles/Vol] 26 mmol/L Normal 22-32 [facility] Comment on above: Performed By: #### C MAGGIE, 61567-9, HA1C #### [facility] ([id number]) [address], [address] [place] [address] Creatinine [Mass/Vol] 0.69 mg/dL Normal 0.40-1.00 [facility] Comment on above: Result Comment: METH OD TRACEABLE TO IDMS STANDARD Performed By: #### C MAGGIE, 00602-0, HA1C #### [facility] ([id number]) [address], [facility] [address] [place] [address] eGFR (CKD-EPI) NON-RACE DEPENDENT >90 Normal >59 [facility] Comment on above: Result Comment: Reported eGFR is based on the CKD-EPI 2020 equation that does not use a race coefficient. Performed By: #### Satinder SERRANO, 56512-1, HA1C #### [facility] ([id number]) [address], [address] [place] [address] Glucose [Mass/Vol] 143 mg/dL High 65-99 [facility] Comment on above: Performed By: #### Satinder SERRANO, 12843-3, HA1C #### [facility] ([id number]) [address] [address] [place] [address] Potassium [Moles/Vol] 3.8 mmol/L Normal 3.5-5.0 [facility] Comment on above: Performed By: #### Satinder SERRANO, 90876-9, HA1C #### [facility] ([id number]) [address], [address] [place] [address] Protein [Mass/Vol] 6.7 g/dL Normal 6.0-8.0 [facility] Comment on above: Performed By: #### Satinder SERRANO, 54658-1, HA1C #### [facility] ([id number]) [address], [address] [address] Sodium [Moles/Vol] 141 mmol/L Normal 134-146 [facility] Comment on above: Performed By: #### Satinder SERRANO, 23769-9, HA1C #### [facility] ([id number]) [address] [address] Urea nitrogen [Mass/Vol] 10 mg/dL Normal 5-27 [facility] Comment on above: Performed By: #### Satinder SERRANO, 83315-9, HA1C #### [facility] ([id number]) [address] [address] HGB A1C (GLYCO-HGB)on 2024 Glucose [Mass/Vol] 186 mg/dL Normal [facility] Comment on above: Performed By: #### Satinder SERRANO, 29850-0, HA1C #### [facility] ([id number]) [address] [address] HbA1c (Bld) [Mass fraction] 8.1 % High 4.4-5.6 [facility] Comment on above: Result Comment: NOTE ADA Guidelines Result HgbA1c Normal : less than 5.7 % Prediabetes : 5.7 % to 6.4 % Diabetes : > 6.4 % Use with caution in patients with abnormal hemoglobin variants as the half-life of red blood cells and in vivo glycation rates are affected. Performed By: #### Satinder SERRANO, 42838-1, HA1C #### [facility] ([id number]) [address] [address] Lipid 1996 panelon 5 Cholesterol [Mass/Vol] 182 mg/dL Normal 150-200 [facility] Comment on above: Performed By: #### Satinder SERRANO, 41563-1, HA1C #### [facility] ([id number]) [address] [place] [address] Cholesterol in HDL [Mass/Vol] 54 mg/dL Normal >39 [facility] Comment on above: Result Comment: HDL <40 mg/dL - High Risk HDL > or = 40mg/dL- Desirable HDL >60 mg/dL - Negative Risk Performed By: #### Satinder SERRANO, 20045-1, HA1C #### [facility] ([id number]) [address], [address] [place] [address] Cholesterol in LDL [Mass/Vol] 100 mg/dL Normal <130 [facility] Comment on above: Result Comment: LDL <100 mg/dL - Desirable LDL >160 mg/dL - High Risk Performed By: #### Satinder SERRANO, 75563-0, HA1C #### [facility] ([id number]) [address], [facility] [address] [place] [address] Cholesterol in VLDL [Mass/Vol] 28 mg/dL Normal 0-30 [facility] Comment on above: Performed By: #### Satinder SERRANO, 74221-3, HA1C #### [facility] ([id number]) [address], [address] [place] [address] CHOLESTEROL:HDL 3.4 Normal 1.0-5.0 [facility] Comment on above: Performed By: #### Satinder SERRANO, 67974-6, HA1C #### [facility] ([id number]) [address], [facility] [address] [place] [address] Triglyceride [Mass/Vol] 139 mg/dL Normal 27-150 [facility] Comment on above: Performed By: #### Satinder SERRANO, 49011-4, HA1C #### [facility] ([id number]) [address] [facility] [place] [address] MAMM SCREENING BILATERAL W 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 Computer aided detection was utilized. FINDINGS: There are scattered areas of fibroglandular density. There are no suspicious masses, calcifications, or areas of architectural distortion. IMPRESSION: No mammographic evidence of malignancy. BI-RADS: BI-RADS 1 - Negative RECOMMENDATION: Routine screening mammogram in 1 year. RISK ASSESSMENT: TC Lifetime risk: 1.98%. The patient's reported personal and family medical history was used calculate their Tyrer-Cuzick lifetime risk of malignancy. Scores less than 20% are not considered high risk per ACR guidelines and patient should continue with the above recommendation. Finalized by Amarilis Martinez MD on 05/16/2024 9:27 AM 1 b MAMM 1 YR Normal [facility] Ambulatory Visit Summaryon 06-05-2023 Ambulatory Visit Summary Ambulatory Visit Summary [...] you for choosing us for your care. [facility] Reminderson 04-05-2024 Reminders Reminders From: Kathy Clements To: EU - Administrative; Sent: 04/05/2024 11:26:09 EST Show up: 06/07/2024 11:25:00 EST Subject: Ambulatory Reminder Due Date/Time: 10/05/2024 11:25:00 EDT Reminder/Recall Patient needs scheduled with an ANA M for a 6m f/u with YAMILKA and KUB, due back mid september 2024 [facility] Urology Office/Clinic Noteon 04-05-2024 Urology Office/Clinic [...] nourished, well developed female. Assessment/Plan BBSQ 14 (21) 1. Kidney stone (N20.0: Calculus of kidney) [...] cystoscopy, urine cytology and CT urogram from [facility] 06/10/21 all negative. Micro UA 12/15/23 [...] the importance (more content not included)... Normal [facility] Comment on above: Result Comment: Elec tronically Signed By: Ashok LAWTON, Norma Chambers\.br\Date and Time Signed: 04/05/24 11:45 EST\.br\Electronically Co-Signed By: Gi Su\.br\Date and Time Co-Signed: 04/05/24 11:09 EST Reminderson 03-06-2024 Reminders Reminders From: Kathy Clements To: EU - Recalls Lue; Sent: 01/31/2024 14:44:38 EDT Show up: 03/07/2024 14:44:00 EDT Subject: Ambulatory Reminder Due Date/Time: 03/28/2024 14:44:00 EST Reminder/Recall Patient needs to be scheduled for a YAMILKA and KUB prior to her 04/05/24 appointment Patient would like to have YAMILKA/KUB done at [facility] Patient Letter FTon 2023 Patient Letter [facility] [place] [facility] December 22, 2023 PEARL JONES [facility] [place] [address] : 1950 Dear Pearl Jones, We have been trying to reach you with no success. It is important that you return our call regarding your recent test results upon receiving this letter. Also, at the time of your call, please provide us with your current information. Thank you for your prompt attention to this matter. Sincerely, [facility] [address], [place] [address] [facility] C Urineon 12-17-2023 Bacteria identified Cx [...] Locations R1: This test was performed at: [facility], [address] [place] [address], [phone] , [place], Normal [facility] Comment on above: Performed By: #### 2 [id number] #### [facility] [address] [place] [address] Ambulatory Visit Summaryon 0 12-15-2023 Ambulatory Visit [...] Norma Pulido MD Where: [facility] of [address] [place] [address]- You Need to Schedule the Following Appointments [...] for choosing us for your care. Normal [facility] URINALYSISOrdered By: SYSTEM SYSTEM on 12-15-2023 Bilirubin Ql (U) Negative Normal Negativemg/ dL [facility] UA Auto SS Clarity (U) Clear (12/15/23 9:34 AM) Normal Clear [facility] UA Auto SS Color (U) Light-Yellow 1 (12/15/23 9:34 AM) Normal Yellow [facility] UA Auto SS Comment on above: Interpretive Data: M icroscopic readings are only performed on those samples that meet specific criteria set forth by [facility]. Epithelial cells.squamous Auto (Urine sed) [#/Area] [...] AM) Invalid Interpretation Code 1.005 - 1.030 [facility] UA Auto SS Urobilinogen (U) [Mass/Vol] Negative Normal Negativemg/ dL [facility] UA Auto SS URINALYSISOrdered By: Ernesto Arias on 12-15-2023 UA Spec Desc Clean Catch (12/15/23 9:34 AM) Normal [facility] UA Auto SS Urology Office/Clinic Noteon 12-15-2023 [...] cystoscopy, urine cytology and CT urogram from [facility] 06/10/21 all negative. UA today shows [...] 6-7 16oz bottles a day; preferably water, lemon/[place], more fruits/vegetables Pt opts to continue monitoring stone growth. -YAMILKA & KUB @ [facility]. Call pt with results. 4. Feeling of incomplete bladder emptying (R39.14: Feeling of incomplete bladder emptying) PVR (cc): 12/09/22 - 25 No PVR today, IO device pending replacement. See #2 5. Renal cyst (N28.1: Cyst of kidney, acquired) CT urogram from [facility] 06/10/21 3mm right renal cortex hypodensity [...] simple cyst Follow-up With When Contact Information Norma Pulido MD, URL, URO follow up in 3 mos w/ YAMILKA and KUB Patient Education I, Jane Sotomayor, personally scribed for Dr. Pulido on 12/15/2023 09:39:45. . Documentation recorded by the scribeJane , accurately reflects the services(s) I performed and decisions made by me. Authenticated by Dr. Pulido on 12/15/2023 09:49:29. Problem List/Past Medical History Ongoing Aspirin long-term use Asymptomatic microscopic hematuria Feeling of incomplete bladder emptying Leaking of urine Renal cyst Historical No qualifying data Procedure/Surgical History Cystoscopy (06/16/2021), Colonoscopy, C (more content not included)... Normal [facility] Comment on above: Result Comment: Elec tronically Signed By: Norma Pulido MD\.br\Date and Time Signed: 12/15/23 09:50 EDT\.br\Electronically Co-Signed By: Jane Sotomayor\.br\Date and Time Co-Signed: 12/15/23 09:40 EDT URINALYSISOrdered By: Stephanie moy on 12-09-2022 Bilirubin [...] Interpretation Code Negative [facility] UA Auto SS Palacios.plasma/Lithi um.RBC (Bld) [Mass ratio] 0-3 /HPF Normal [...] [facility] UA Auto SS Urobilinogen Qn (U) [id number] {Tyrell'U}/dL Normal 0.0 - 1.0 EU/dL [facility] [...] : DR GINO CARRASQUILLO M.D. Admission #: [id number] Family : Order #: [id number] CLICK HERE TO VIEW EXAM RADIOLOGY REPORT [...] Treatments None Family Cancers None LOCATION: [facility] BREAST COMPOSITION: Heterogeneously dense,which may [...] M.D. on 10/05/2022 at 08:35 Normal [facility] US BREAST RIGHT LIMITEDon US BREAST RIGHT LIMITED Patient: PEARL JONES Exam Date: 10/05/2022 : 1950 Gender:F Ordering : DR GINO CARRASQUILLO M.D. Admission #: [id number] Family : Order #: [id number] CLICK HERE TO VIEW EXAM RADIOLOGY REPORT [...] Treatments None Family Cancers None LOCATION: [facility] BREAST COMPOSITION: Heterogeneously dense,which may [...] M.D. on 10/05/2022 at 08:35 Normal [address] [facility] MG MAMM SCREEN 3D SALMA CADon 09-22-2022 MG MAMM SCREEN 3D SALMA CAD Patient: PEARL JONES Exam Date: 09/22/2022 : 1950 Gender:F Ordering : DR GINO CARRASQUILLO M.D. Admission #: [id number] Family : Order #: [id number] CLICK HERE TO VIEW EXAM RADIOLOGY REPORT [...] Treatments None Family Cancers None LOCATION: [facility] BREAST COMPOSITION: Heterogeneously dense,which may [...] MD on 09/23/2022 at 08:[address] [facility] CBC AUTO DIFFon 08-12-2022 BASO # 0.0 103/ul Normal 0.0-0.[address] [facility] Comment on above: Performed By: #### C BC ####[facility] [address] [place] [address]Dr. Silvino Clifton Basophils/100 WBC (Bld) 0.7 % Normal 0.2-2.[address] [facility] Comment on above: Performed By: #### C BC ####[facility] [address] [place], [place] [address]Dr. Silvino Clifton EO # 0.1 103/ul Normal 0.0-0.[address] [facility] Comment on above: Performed By: #### C BC ####[facility] [address] [place], [place] [address]Dr. Silvino Clifton Eosinophils/100 WBC (Bld) 2.1 % Normal 0.9-7.[address] [facility] Comment on above: Performed By: #### C BC ####[facility] [address] [place], [place] [address]Dr. Silvino Clifton Erythrocyte distribution width (RBC) [Ratio] 12.3 % Normal 11.0-15.[address] [facility] Comment on above: Performed By: #### C BC ####[facility] [address] [place], [place] [address]Dr. Silvino Clifton Hematocrit (Bld) [Volume fraction] 38.2 % Normal 36.0-48.[address] [facility] Comment on above: Performed By: #### C BC ####[facility] [address] [place], [place] [address]Dr. Silvino Clifton Hemoglobin (Bld) [Mass/Vol] 12.8 g/dL Normal 12.0-16.[address] [facility] Comment on above: Performed By: #### C BC ####[facility] [address] [place] [phone]. Silvino Clifton IG # 0.02 10e3/ul Normal 0.00-0.[address] [facility] Comment on above: Performed By: #### C BC ####[facility] [address] [place] [id number]. Silvino Clifton IG % 0.3 % Normal 0.0-0.[address] [facility] Comment on above: Performed By: #### C BC ####[facility] [address] [place] [address]Dr. Silvino Clifton LYMPH # 2.2 103/ul Normal 1.2-3.[address] [facility] Comment on above: Performed By: #### C BC ####[facility] [address] [place] [address]Dr. Suzyoriana Clifton Lymphocytes/100 WBC (Bld) 35.4 % Normal 20.5-60.[address] [facility] Comment on above: Performed By: #### C BC ####[facility] [address] [place] [address]Dr. Suzyoriana Clifton MANUAL DIFF REQ NO Normal [facility] Comment on above: Performed By: #### C BC ####[facility] [address]ktqum4[address] [place] [address]Dr. Silvino Clifton MCH (RBC) [Entitic mass] 28.0 pg Normal 26.7-34.[address] [facility] Comment on above: Performed By: #### C BC ####[facility] [address] [place] [address]Dr. Silvino Clifton MCHC (RBC) [Mass/Vol] 33.5 g/dL Normal 29.9-35.[address] [facility] Comment on above: Performed By: #### C BC ####[facility] [address] [place] [address]Dr. Silvino Clifton MCV (RBC) [Entitic vol] 83.6 fL Normal 81.0-99.[address] [facility] Comment on above: Performed By: #### C BC ####[facility] [address]xsz[address] [place] [phone]. Silvino Clifton MONO # 0.4 103/ul Normal 0.3-0.[address] [facility] Comment on above: Performed By: #### C BC ####[facility] [address]exr[address] [place] [address]Dr. Silvino Clifton Monocytes/100 WBC (Bld) 7.2 % Normal 1.7-12.[address] [facility] Comment on above: Performed By: #### C BC ####[facility] [address] [place] [address]Dr. Silvino Clifton NEUT # 3.3 103/ul Normal 1.4-6.[address] [facility] Comment on above: Performed By: #### C BC ####[facility] [address] [place] [address]Dr. Silvino Clifton Neutrophils/100 WBC (Bld) 54.3 % Normal 43.0-75.[address] [facility] Comment on above: Performed By: #### C BC ####[facility] [address] [place] [address]Dr. Silvino Clifton Platelet mean volume (Bld) [Entitic vol] 11.3 fL Normal 9.5-13.[address] [facility] Comment on above: Performed By: #### C BC ####[facility] [address]fr[address] [place] [phone]. Silvino Clifton PLT 208 103/ul Normal 150-[address] [facility] Comment on above: Performed By: #### C BC ####[facility] [address] [place] [address]Dr. Silvino Clifton RBC 4.57 106/ul Normal 4.20-5.[address] [facility] Comment on above: Performed By: #### C BC ####[facility] [address] [place], [place] [address]Dr. Silvino Clifton WBC 6.2 103/ul Normal 4.0-11.[address] [facility] Comment on above: Performed By: #### C BC ####[facility] [address] [place], [place] [address]Dr. Silvino Clifton GLYCOHEMOGLOBIN A1Con 2022 ADA RECOMMENDATION SEE BELOW Normal [facility] Comment on above: Result Comment: ADA RECOMMENDED LIMIT 4.0 - 6.0 ADA THERAPEUTIC TARGET < 7.0 ACTION SUGGESTED > 7.0 Performed By: #### A 1C #### [facility] [address] [place], [place] [address] Dr. Silvino Clifton Glucose [Mass/Vol] 169 mg/dL Normal [facility] Comment on above: Performed By: #### A 1C #### [facility] [address] [place] [id number] [address] Silvino Clifton HbA1c (Bld) [Mass fraction] 7.5 % Critically high 4.5-6.2 [facility] Comment on above: Performed By: #### A 1C #### [facility] [address] [place] [address] [address] Silvino Clifton LIPID PROFILEon 08-12-2022 CHOL-HDL RATIO NORM SEE BELOW Normal [facility] Comment on above: Result Comment: 3.3 - 4.4 LOW RISK 4.4 - 7.1 AVERAGE RISK 7.1 - 11.0 MODERATE RISK >11.0 HIGH RISK Performed By: #### M G, CMP, LIPID ####[facility] [address] [place], [place] [address]NnNatividad Clifton Cholesterol [Mass/Vol] 185 mg/dL Normal <=200 [facility] Comment on above: Performed By: #### M G, CMP, LIPID ####[facility] [address] [place], [place] [address]JiNatividad Clifton Cholesterol in HDL [Mass/Vol] 58 mg/dL Normal 40-60 [facility] Comment on above: Performed By: #### M G, CMP, LIPID ####[facility] [address]xf[address] [place], [place] [address]InNatividad Clifton Cholesterol in LDL [Mass/Vol] 95.4 mg/dL Normal [facility] Comment on above: Performed By: #### M G, CMP, LIPID ####[facility] [address] [place], [place] [address]KuNatividad Clifton Cholesterol.total/Ch olesterol in HDL [Mass ratio] 3.2 {ratio} Normal [facility] Comment on above: Performed By: #### Hang Porter, CMP, LIPID ####[facility] [address] [place] [phone]. Silvino Clifton HDL NORMAL > or = 60 mg/dl - LO W CARDIOVASCULAR RISK <40 mg/dl - HIGH CARDIOVASCULAR RISK Normal [facility] Comment on above: Performed By: #### Hang Porter, CMP, LIPID ####[facility] S[address]mv[address]wea[address] [place] [phone]. Silvino Clifton LDL CALC NORMAL SEE BELOW Normal [facility] Comment on above: Result Comment: <100 mg/dl OPTIMAL 100 - 129 mg/dl NEAR OR ABOVE OPTIMAL 130 - 159 mg/dl BORDERLINE HIGH 160 - 189 mg/dl HIGH >190 mg/dl VERY HIGH Performed By: #### Hang Porter, CMP, LIPID ####[facility] [address]ieg[address] [place] [phone] Clifton Triglyceride [Mass/Vol] 158 mg/dL Critically high <=150 [facility] Comment on above: Performed By: #### Hang Porter, CMP, LIPID ####[facility] [address]se[address] [place] [address]Dr. Silvino Clifton VLDL CALC 31.6 mg/dL Normal [facility] Comment on above: Performed By: #### Hang Porter, CMP, LIPID ####[facility] [address]fuzjjhssx5[address] [place] [phone]. Silvino Clifton MAGNESIUMon 08-12-2022 Magnesium [Mass/Vol] 1.6 mg/dL Critically low 1.8-2.4 [facility] Comment on above: Performed By: #### Hang Porter, CMP, LIPID ####[facility] [address]rrwftikn[address] [place] [phone]. Silvino Clifton PROF 14(COMP METB)on 023 Albumin [Mass/Vol] 4.0 g/dL Normal 3.4-5.0 [facility] Comment on above: Performed By: #### Hang Porter, CMP, LIPID ####[facility] [address] [place] [phone]. Suzyoriana Clifton Albumin/Globulin [Mass ratio] 1.2 {ratio} Normal [facility] Comment on above: Performed By: #### M G, CMP, LIPID ####[facility] [address]ae[address] [place] [phone]. Suzyoriana Clifton ALP [Catalytic activity/Vol] 61 U/L Normal 46-116 [facility] Comment on above: Performed By: #### M G, CMP, LIPID ####[facility] [address] [place] [address]Dr. Silvino Clifton ALT [Catalytic activity/Vol] 17 U/L Normal 14-59 [facility] Comment on above: Performed By: #### M G, CMP, LIPID ####[facility] [address]tcys[address] [place] [address]Dr. Silvino Clifton Anion gap [Moles/Vol] 11.8 mmol/L Normal [facility] Comment on above: Performed By: #### M G, CMP, LIPID ####[facility] [address]mj[address]dmf[address] [place] [address]Dr. Silvino Clifton AST [Catalytic activity/Vol] 16 U/L Normal 15-37 [facility] Comment on above: Performed By: #### M G, CMP, LIPID ####[facility] [address]xx[address]nrviu[address] [place] [phone]. Silvino Clifton Bilirubin [Mass/Vol] 0.4 mg/dL Normal 0.2-1.[address] [facility] Comment on above: Performed By: #### M G, CMP, LIPID ####[facility] Alz[address]zunwk32[address] [place] [phone]. Silvino Clifton Calcium [Mass/Vol] 9.3 mg/dL Normal 8.5-10.1 [facility] Comment on above: Performed By: #### M G, CMP, LIPID ####[facility] [address]wvbryvmn16[address] [place] [phone]. Silvino Clifton Chloride [Moles/Vol] 106 mmol/L Normal 98-[address] [facility] Comment on above: Performed By: #### M G, CMP, LIPID ####[facility] [address]sffithwmp6838 [place] [phone]. Silvino Etienne CO2 [Moles/Vol] 28.3 mmol/L Normal 21.0-32.0 [facility] Comment on above: Performed By: #### M G, CMP, LIPID ####[facility] Ttajmskqrq[address] [place] [phone]. Silvino Clifton Creatinine [Mass/Vol] 0.72 mg/dL Normal 0.55-1.02 [facility] Comment on above: Performed By: #### M G, CMP, LIPID ####[facility] Hmprqkkhwt045[address] [place] [phone]. Silvino Clifton EGFR-AF CENTRAL AFRICAN >60 Normal >=60 [facility] Comment on above: Performed By: #### M G, CMP, LIPID ####[facility] Geqcutdade[address] [place] [address]Dr. Silvino Clifton EGFR-NON AF CENTRAL AFRICAN >60 Normal >=[address] [facility] Comment on above: Performed By: #### M G, CMP, LIPID ####[facility] Aqmnzlxwlz89[address] [place] [phone]. Silvino Clifton Globulin (S) [Mass/Vol] 3.3 g/dL Normal [facility] Comment on above: Performed By: #### M G, CMP, LIPID ####[facility] Rlksoklbyl6682 [place] [address]Dr. Silvino Clifton Glucose [Mass/Vol] 167 mg/dL Critically high 74-106 [facility] Comment on above: Performed By: #### M G, CMP, LIPID ####[facility] Zdqsqtgyaz8995 [place] [address]Dr. Silvino Clifton Potassium [Moles/Vol] 4.1 mmol/L Normal 3.5-5.[address] [facility] Comment on above: Performed By: #### M G, CMP, LIPID ####[facility] Zmeienhflw5067 [place] [address]Dr. Silvino Clifton Protein [Mass/Vol] 7.3 g/dL Normal 6.4-8.2 [facility] Comment on above: Performed By: #### M G, CMP, LIPID ####[facility] Sqvdsevwib8155 [place] [address]Dr. Silvino Clifton Sodium [Moles/Vol] 142 mmol/L Normal 136-145 [facility] Comment on above: Performed By: #### M G, CMP, LIPID ####[facility] Axhshjkiss[address] [place] [address]Dr. Silvino Clifton Urea nitrogen [Mass/Vol] 13.0 mg/dL Normal 7.0-18.0 [facility] Comment on above: Performed By: #### M G, CMP, LIPID ####[facility] Rptfdakcgs9836 [place] [address]Dr. Silvino Clifton Urea nitrogen/Creatinine [Mass ratio] 18.1 mg/mg Normal [facility] Comment on above: Performed By: #### M G, CMP, LIPID ####[facility] W[address]ivbliz[address] [place] [phone]. Silvino Clifton XR LSPINE 2_3 VIEWSon 2022 [...] by: KYLIE MENON Date: 2022-08-12 09:32 Normal [facility] XR DEXA BONE DENSITYon 08-11 XR [...] by: KYLIE MENON Date: 2022-08-11 13:51 Normal [facility] CT CSPINE WO CONon CT CSPINE [...] M JESUS Date: 2022-03-09 11:40 [address] [facility] CT HEAD WO CONon 03-09-2022 [...] since 11/12/2021. Electronically authenticated by: JOSE M NNAMDIHEAVEN Date: 2022-03-09 11:29 Normal [facility] PAP ACOG PANEL 2: 30 to 65on 01-30-2022 . . Normal [facility] Comment on above: Performed By: #### 4 [id number] ####[facility] [address]ubeh[address] [place] [address]Dr. Silvino Clifton Age Gdln ACOG Testing Comment [facility] Comment on above: Result Comment: <21 or >65 or no age provided Performed By: #### 4 [id number] ####[facility] [address] [place], [place] [address]Dr. Silvino Clifton DIAGNOSIS: Comment [facility] Comment on above: Result Comment: NEGA TIVE FOR INTRAEPITHELIAL LESION OR MALIGNANCY. CELLULAR CHANGES ASSOCIATED WITH ATROPHY ARE PRESENT. Performed By: #### 4 [id number] ####[facility] [address] [place], [place] [address]Dr. Silvino Clifton Methodology: Comment [facility] Comment on above: Result Comment: This liquid based ThinPrep(R) pap test was screened with the use of an image guided system. Performed By: #### 4 [id number] ####[facility] [address] [place], [place] [address]Dr. Silvino Clifton Note: Comment [facility] Comment on above: Result Comment: The Pap smear is a screening test designed to aid in the detection of premalignant and malignant conditions of the uterine cervix. It is not a diagnostic procedure and should not be used as the sole means of detecting cervical cancer. Both false-positive and false-negative reports do occur. . Performed By: #### 4 [id number] ####[facility] [address] [place], [place] [address]DrNatividad Clifton Performed by: Comment Normal [facility] Comment on above: Result Comment: Isabel Gong, Relocation Director (ASCP) Performed By: #### 4 [id number] ####[facility] [address]zqtx49[address] [place], [place] [address]Kf. Silvino Clifton Specimen adequacy: Comment Normal [facility] Comment on above: Result Comment: Sati sfactory for evaluation. Performed By: #### 4 [id number] ####[facility] [address]jxulix[address] [place], [place] [address]Ci. Silvino Clifton BASIC METABOLIC PANELon 07-0 BUN/CREATININE RATIO NOT APPLICABLE Normal 6- [facility] Comment on above: Order Comment: FASTI NG:YES FASTING: YES Performed By: #### 1 0165, 496 #### [facility] [place] [address] Claim Processing Specialist: Scott Nichols MD Calcium [Mass/Vol] 9.6 mg/dL Normal 8.6-10.4 [facility] Comment on above: Order Comment: FASTI NG:YES FASTING: YES Performed By: #### 1 8655, 496 #### [facility] [place] [address] Claim Processing Specialist: Scott Nichols MD Chloride [Moles/Vol] 104 mmol/L Normal 98-110 [facility] Comment on above: Order Comment: FASTI NG:YES FASTING: YES Performed By: #### 1 0165, 496 #### [facility] [place] [address] Claim Processing Specialist: Scott Nichols MD CO2 [Moles/Vol] 31 mmol/L Normal 20-32 [facility] Comment on above: Order Comment: FASTI NG:YES FASTING: YES Performed By: #### 1 0165, 496 #### [facility] [place] [address] Claim Processing Specialist: Scott Nichols MD Creatinine [Mass/Vol] 0.64 mg/dL Normal 0.60-0.93 [facility] Comment on above: Order Comment: FASTI NG:YES FASTING: YES Result Comment: For patients >49 years of age, the reference limit for Creatinine is approximately 13% higher for people identified as -Guatemalan. Performed By: #### 1 0165, 496 #### [facility] [address], [address] [place] [address] Claim Processing Specialist: Scott Nichols MD eGFR NON-AFR. CENTRAL AFRICAN 90 mL/min/1.73m2 Normal > OR = 60 [facility] Comment on above: Order Comment: FASTI NG:YES FASTING: YES Performed By: #### 1 0165, 496 #### [facility] [address], [address] [place] [address] Claim Processing Specialist: Scott Nichols MD GFR/1.73 sq M.predicted among blacks MDRD (S/P/Bld) [Vol rate/Area] 105 mL/min/{1.73_m2} Normal > OR = 60 [facility] Comment on above: Order Comment: FASTI NG:YES FASTING: YES Performed By: #### 1 0165, 496 #### [facility] [address], [address] [place] [address] Claim Processing Specialist: Scott Nichols MD Glucose [Mass/Vol] 136 mg/dL High 65-99 [facility] Comment on above: Order Comment: FASTI NG:YES FASTING: YES Result Comment: Fasting reference interval For someone without known diabetes, a glucose value >125 mg/dL indicates that they may have diabetes and this should be confirmed with a follow-up test. Performed By: #### 1 0165, 496 #### [facility] [address], [address] [place] [address] Claim Processing Specialist: Scott Nichols MD Potassium [Moles/Vol] 4.3 mmol/L Normal 3.5-5.3 [facility] Comment on above: Order Comment: FASTI NG:YES FASTING: YES Performed By: #### 1 0165, 496 #### [facility] [address], [address] [place] [address] Claim Processing Specialist: Scott Nichols MD Sodium [Moles/Vol] 141 mmol/L Normal 135-146 [facility] Comment on above: Order Comment: FASTI NG:YES FASTING: YES Performed By: #### 1 0165, 496 #### [facility] [address], [address] [place] [address] Claim Processing Specialist: Scott Nichols MD Urea nitrogen [Mass/Vol] 9 mg/dL Normal 7-25 [facility] Comment on above: Order Comment: FASTI NG:YES FASTING: YES Performed By: #### 1 0165, 496 #### [facility] [address], [address] [place] [address] Claim Processing Specialist: Scott Nichols MD HEMOGLOBIN A1con 11-27-2021 HEMOGLOBIN [...] #### 1 0165, 496 #### [facility] [address], [address] [place] [address] Claim Processing Specialist: Scott Nichols MD URINALYSISOrdered By: Aggie Giron [...] (11/26/21 10:54 AM) Invalid Interpretation Code Negative FT UA Auto SS Ketones (U) [Mass/Vol] Negative (11/26/21 10:54 AM) Normal Negative [facility] [place]A Auto SS Palacios.plasma/Lithi um.RBC (Bld) [Mass ratio] 0-3 /HPF Normal 0-3/HPF FT UA Auto SS Nitrite Ql (U) Negative (11/26/21 10:54 AM) Normal Negative FT UA Auto SS pH (U) 6.5 *NA* (11/26/21 10:54 AM) Invalid Interpretation Code 5.0 - 9.0 [facility] [place] UA Auto SS Protein (U) [Mass/Vol] Negative (11/26/21 10:54 AM) Normal Negative [facility] [place] UA Auto SS Specific gravity (U) [Rel density] <=1.005 *NA* (11/26/21 10:54 AM) Invalid Interpretation Code 1.005 - 1.030 [facility] [place] UA Auto SS UA Spec Desc Clean Catch (11/26/21 10:54 AM) Normal [facility] [place] UA Auto SS Urobilinogen Qn (U) 0.6774591 {Tyrell'U}/dL Normal 0.0 - 1.0 EU/dL FT UA Auto SS WBC Auto Ql (U) Negative (11/26/21 10:54 AM) Normal Negative [facility] [place] UA Auto SS WBC LM.HPF (Urine sed) [#/Area] 0-5 /HPF Normal 0-5/HPF [facility] [place] UA Auto SS CT ABD/PELVIS WO CONon [...] LOBITO YEE Date: 2021-11-24 01:04 Normal [address] [facility] CBC AUTO DIFFon 11-12-2021 BASO # 0.1 103/ul Normal 0.0-0.[address] [facility] Comment on above: Performed By: #### C BC ####[facility] [address] [place] [address]Dr. Silvino Clifton Basophils/100 WBC (Bld) 0.6 % Normal 0.2-2.[address] [facility] Comment on above: Performed By: #### C BC ####[facility] [address] [place], [place] [address]Dr. Silvino Clifton EO # 0.1 103/ul Normal 0.0-0.[address] [facility] Comment on above: Performed By: #### C BC ####[facility] [address] [place], [place] [address]Dr. Silvino Clifton Eosinophils/100 WBC (Bld) 1.3 % Normal 0.9-7.[address] [facility] Comment on above: Performed By: #### C BC ####[facility] [address] [place], [place] [address]Dr. Silvino Clifton Erythrocyte distribution width (RBC) [Ratio] 11.9 % Normal 11.0-15.0 [facility] Comment on above: Performed By: #### C BC ####[facility] [address] [place], [place] [address]Dr. Silvino Clifton Hematocrit (Bld) [Volume fraction] 37.6 % Normal 36.0-48.[address] [facility] Comment on above: Performed By: #### C BC ####[facility] [address] [place], [place] [id number]. Silvino Clifton Hemoglobin (Bld) [Mass/Vol] 13.0 g/dL Normal 12.0-16.[address] [facility] Comment on above: Performed By: #### C BC ####[facility] [address] [place], [place] [address]Dr. Silvino Clifton IG # 0.04 10e3/ul Critically high 0.00-0.03 [facility] Comment on above: Performed By: #### C BC ####[facility] [address] [place] [id number]. Silvino Clifton IG % 0.5 % Normal 0.0-0.5 [facility] Comment on above: Performed By: #### C BC ####[facility] [address]xuf[address] [place] [address]Dr. Silvino Clifton LYMPH # 1.5 103/ul Normal 1.2-3.8 [facility] Comment on above: Performed By: #### C BC ####[facility] Rwh[address]mykh[address] [place] [address]Dr. Silvino Clifton Lymphocytes/100 WBC (Bld) 18.9 % Critically low 20.5-60.0 [facility] Comment on above: Performed By: #### C BC ####[facility] [address] [place] [address]Dr. Silvino Clifton MANUAL DIFF REQ NO Normal [facility] Comment on above: Performed By: #### C BC ####[facility] [address]th[address] [place] [phone]. Silvino Clifton MCH (RBC) [Entitic mass] 29.7 pg Normal 26.7-34.0 [facility] Comment on above: Performed By: #### C BC ####[facility] [address]ctvfn[address] [place] [address]Dr. Silvino Clifton MCHC (RBC) [Mass/Vol] 34.6 g/dL Normal 29.9-35.2 [facility] Comment on above: Performed By: #### C BC ####[facility] [address] [place] [address]DrNatividad Clifton MCV (RBC) [Entitic vol] 85.8 fL Normal 81.0-99.0 [facility] Comment on above: Performed By: #### C BC ####[facility] [address] [place] [address]DrNatividad Clifton MONO # 0.5 103/ul Normal 0.3-0.8 [facility] Comment on above: Performed By: #### C BC ####[facility] Qtkjudsteg1147 [place] [address]Dr. Silvino Clifton Monocytes/100 WBC (Bld) 6.1 % Normal 1.7-12.[address] [facility] Comment on above: Performed By: #### C BC ####[facility] I[address]ksjjadp[address] [place] [address]Dr. Silvino Clifton NEUT # 5.8 103/ul Normal 1.4-6.[address] [facility] Comment on above: Performed By: #### C BC ####[facility] [address]fkp[address] [place] [address]Dr. Silvino Clifton Neutrophils/100 WBC (Bld) 72.6 % Normal 43.0-75.[address] [facility] Comment on above: Performed By: #### C BC ####[facility] Fwd[address]jjzxwu04[address] [place] [phone]. Silvino Clifton Platelet mean volume (Bld) [Entitic vol] 10.7 fL Normal 9.5-13.5 [facility] Comment on above: Performed By: #### C BC ####[facility] [address]nvi[address] [place] [address]Dr. Silvino Clifton PLT 182 103/ul Normal 150-[address] [facility] Comment on above: Performed By: #### C BC ####[facility] Lljtrbtytl[address] [place] [address]Dr. Silvino Clifton RBC 4.38 106/ul Normal 4.20-5.[address] [facility] Comment on above: Performed By: #### C BC ####[facility] Vedphovtgs[address] [place] [address]Dr. Silvino Clifton WBC 8.0 103/ul Normal 4.0-11.[address] [facility] Comment on above: Performed By: #### C BC ####[facility] Rye[address]imvseu[address] [place] [phone]. Silvino Clifton CT HEAD WO CONon 11-12-2021 [...] RAYNE JOHNSON Date: 2021-11-12 05:04 Normal [facility] ER URINE PROFILEon 2 Bilirubin Ql (U) Negative Normal NEGATIVE [facility] Comment on above: Performed By: #### U MICRO, ERUR #### [facility] Laboratory [address] [place] [address] Dr. Silvino Clifton Clarity (U) CLEAR Normal CLEAR [facility] Comment on above: Performed By: #### U MICRO, ERUR #### [facility] [address] [place] [address] Dr. Silvino Clifton Color (U) LT. YELLOW Normal YELLOW [facility] Comment on above: Performed By: #### U MICRO, ERUR #### [facility] [address] [place] [address] Dr. Silvino Clifton ERUAHD A micrscopic examina tion will be performed if indicated. Normal [facility] Comment on above: Performed By: #### U MICRO, ERUR #### [facility] [address] [place] [address] Dr. Silvino Clifton Glucose Ql (U) Negative Normal NEGATIVE [facility] Comment on above: Performed By: #### U MICRO, ERUR #### [facility] [address] [place] [address] Dr. Silvino Clifton Hemoglobin Ql (U) SMALL Abnormal NEGATIVE [facility] Comment on above: Performed By: #### U MICRO, ERUR #### [facility] [address] [place] [address] Dr. Silvino Clifton Ketones Ql (U) Negative Normal NEGATIVE [facility] Comment on above: Performed By: #### U MICRO, ERUR #### [facility] [address] [place] [address] [address] Silvino Clifton LEUKOCYTES Negative Normal NEGATIVE [facility] Comment on above: Performed By: #### U MICRO, ERUR #### [facility] [address] [place] [address] [address] Silvino Clifton Nitrite Ql (U) Negative Normal NEGATIVE [facility] Comment on above: Performed By: #### U MICRO, ERUR #### [facility] [address] [place] [address] [address] Silvino Clifton pH (U) 7.0 [pH] Normal 5-9 [facility] Comment on above: Performed By: #### U MICRO, ERUR #### [facility] [address] [place] [address] Dr. Silvino Clifton SPEC GRAVITY <=1.005 Abnormal 1.005-<=1.[address] [place] [address] Comment on above: Performed By: #### U MICRO, ERUR #### [facility] [address] [place] [address] [address] Silvino Clifton UA PROTEIN Negative Normal NEGATIVE/ TRACE [facility] Comment on above: Performed By: #### U MICRO, ERUR #### [facility] [address] [place] [address] Dr. Silvino Clifton UR MICRO IND INDICATED Normal [facility] Comment on above: Performed By: #### U MICRO, ERUR #### [facility] [address] [place] [address] Dr. Silvino Clifton Urobilinogen Qn (U) 0.2 {Tyrell'U}/dL Normal 0.2 - 1. 0 [facility] Comment on above: Performed By: #### U MICRO, ERUR #### [facility] [address] [place] [address] Dr. Silvino Clifton PROF 14(COMP METB)on 022 Albumin [Mass/Vol] 4.2 g/dL Normal 3.4-5.0 [facility] Comment on above: Performed By: #### C MAGGIE, HSTROPN ####[facility] [address] [place] [address]Dr. Silvino Clifton Albumin/Globulin [Mass ratio] 1.2 {ratio} Normal [facility] Comment on above: Performed By: #### C MAGGIE, HSTROPN ####[facility] [address] [place] [address]Dr. Silvino Clifton ALP [Catalytic activity/Vol] 65 U/L Normal 46-[address] [facility] Comment on above: Performed By: #### C MAGGIE, HSTROPN ####[facility] X[address]ld[address]otu[address] [place] [address]Dr. Silvino Clifton ALT [Catalytic activity/Vol] 21 U/L Normal 14-59 [facility] Comment on above: Performed By: #### C MAGGIE, HSTROPN ####[facility] Ox[address] [place] [address]Dr. Silvino Clifton Anion gap [Moles/Vol] 12.5 mmol/L Normal [facility] Comment on above: Performed By: #### C MAGGIE, HSTROPN ####[facility] [address] [place], [place] [address]Dr. Silvino Clifton AST [Catalytic activity/Vol] 17 U/L Normal 15-37 [facility] Comment on above: Performed By: #### C MAGGIE, HSTROPN ####[facility] [address] [place], [place] [address]Dr. Silvino Clifton Bilirubin [Mass/Vol] 0.5 mg/dL Normal 0.2-1.[address] [facility] Comment on above: Performed By: #### C MAGGIE, HSTROPN ####[facility] [address] [place], [place] [address]Dr. Silvino Clifton Calcium [Mass/Vol] 9.0 mg/dL Normal 8.5-10.1 [facility] Comment on above: Performed By: #### C MAGGIE, HSTROPN ####[facility] [address] [place], [place] [address]Dr. Silvino Clifton Chloride [Moles/Vol] 100 mmol/L Normal 98-[address] [facility] Comment on above: Performed By: #### C MAGGIE, HSTROPN ####[facility] [address] [place] [address]Dr. Silvino Clifton CO2 [Moles/Vol] 26.8 mmol/L Normal 21.0-32.0 [facility] Comment on above: Performed By: #### C MAGGIE, HSTROPN ####[facility] [address] [place] [address]Dr. Silvino Clifton Creatinine [Mass/Vol] 0.71 mg/dL Normal 0.55-1.[address] [facility] Comment on above: Performed By: #### C MAGGIE, HSTROPN ####[facility] [address]yluae[address] [place] [address]Dr. Silvino Clifton EGFR-AF CENTRAL AFRICAN >60 Normal >=60 [facility] Comment on above: Performed By: #### C MAGGIE, HSTROPN ####[facility] [address]xmsi[address] [place] [address]Dr. Silvino Clifton EGFR-NON AF CENTRAL AFRICAN >60 Normal >=[address] [facility] Comment on above: Performed By: #### C MAGGIE, HSTROPN ####[facility] [address] [place] [address]Dr. Silvino Clifton Globulin (S) [Mass/Vol] 3.4 g/dL Normal [facility] Comment on above: Performed By: #### C MAGGIE, HSTROPN ####[facility] [address] [place] [address]Dr. Silvino Clifton Glucose [Mass/Vol] 185 mg/dL Critically high 74-106 [facility] Comment on above: Performed By: #### C MAGGIE, HSTROPN ####[facility] [address] [place] [address]Dr. Suzyoriana Clifton Potassium [Moles/Vol] 3.3 mmol/L Critically low 3.5-5.[address] [facility] Comment on above: Performed By: #### C MAGGIE, HSTROPN ####[facility] Lsszyn[address]ot[address] [place] [phone]. Silvino Clifton Protein [Mass/Vol] 7.6 g/dL Normal 6.4-8.2 [facility] Comment on above: Performed By: #### C MP, HSTROPN ####[facility] D[address]juqigiw[address] [place] [phone]. Silvino Clifton Sodium [Moles/Vol] 136 mmol/L Normal 136-145 [facility] Comment on above: Performed By: #### C MP, HSTROPN ####[facility] [address]cyw[address] [place] [address]Dr. Silvino Clifton Urea nitrogen [Mass/Vol] 10.0 mg/dL Normal 7.0-18.[address] [facility] Comment on above: Performed By: #### C MP, HSTROPN ####[facility] [address] [place] [address]Dr. Silvino Clifton Urea nitrogen/Creatinine [Mass ratio] 14.1 mg/mg Normal [facility] Comment on above: Performed By: #### C MP, HSTROPN ####[facility] [address]ed[address] [place] [address]Dr. Silvino Clifton TROPONIN, HIGH SENSITIVITYon 11-12-2021 HSTROP 25.0 pg/mL Normal 4.0-51.[address] [facility] Comment on above: Result Comment: CUT- OFF POINTS HAVE BEEN ESTABLISHED BASED ON THE FOURTH UNIVERSAL DEFINITIONS OF MYOCARDIAL INFARCTION. THE UPPER REFERENCE LIMIT (URL) OF TROPONIN, DEFINED THE 99TH PERCENTILE OF cTnI DISTRIBUTION IN A REFERENCE POPULATION, HAS BEEN CONFIRMED THE DECISION THRESHOLD FOR [place] DIAGNOSIS. Performed By: #### C MP, HSTROPN #### [facility] Laboratory [address] [place] [address] Dr. Silvino Clifton URINE MICROSCOPIC ONLYon BACTERIA NONE SEEN Normal NONE SEEN [facility] Comment on above: Performed By: #### U MICRO, ERUR #### [facility] [address] [place] [address] [address] Silvino Clifton Bacteria identified Cx Nom (U) NOT INDICATED Normal [facility] Comment on above: Performed By: #### U MICRO, ERUR #### [facility] [address] [place] [address] Dr. Silvino Clifton CAST NONE SEEN Normal NONE SEEN [facility] Comment on above: Performed By: #### U MICRO, ERUR #### [facility] [address] [place] [address] Dr. Silvino Clifton Crystals LM Nom (Urine sed) NONE SEEN Normal NONE SEEN [facility] Comment on above: Performed By: #### U MICRO, ERUR #### [facility] [address] [place] [address] Dr. Silvino Clifton Epithelial cells LM Ql (Urine sed) RARE Normal NONE SEEN /RARE [facility] Comment on above: Performed By: #### U MICRO, ERUR #### [facility] [address] [place] [address] Dr. Silvino Clifton MUCOUS NONE SEEN Normal NONE SEEN [facility] Comment on above: Performed By: #### U MICRO, ERUR #### [facility] [address] [place] [address] Dr. Silvino Clifton RBC 2-5 Abnormal 0-[address] [facility] Comment on above: Performed By: #### U MICRO, ERUR #### [facility] [address] [place] [address] Dr. Silvino Clifton WBC NONE SEEN Normal NONE SEEN [facility] Comment on above: Performed By: #### U MICRO, ERUR #### [facility] [address] [place] [address] [address] Silvino Clifton CBC (INCLUDES DIFF/PLT)on Basophils (Bld) [#/Vol] 0.041 10*3/uL Normal 0-200 [facility] Comment on above: Performed By: #### 6 399, 622, 927 #### [facility] [address] [place] [address], [address] [place] [address] Claim Processing Specialist: Scott Nichols MD Basophils/100 WBC (Bld) 0.7 % Normal [facility] Comment on above: Performed By: #### 6 399, 622, 927 #### [facility] of [address], [address] [place] [address] Claim Processing Specialist: Scott Nichols MD Eosinophils (Bld) [#/Vol] 0.077 10*3/uL Normal 15-500 [facility] Comment on above: Performed By: #### 6 399, 622, 927 #### [facility] of [address], [address] [place] [address] Claim Processing Specialist: Scott Nichols MD Eosinophils/100 WBC (Bld) 1.3 % Normal [facility] Comment on above: Performed By: #### 6 399, 622, 927 #### [facility] of [place] [address] Claim Processing Specialist: Scott Nichols MD Erythrocyte distribution width (RBC) [Ratio] 12.3 % Normal 11.0-15.0 [facility] Comment on above: Performed By: #### 6 399, 622, 927 #### [facility] of [place] [address] Claim Processing Specialist: Scott Nichols MD Hematocrit (Bld) [Volume fraction] 40.2 % Normal 35.0-45.0 [facility] Comment on above: Performed By: #### 6 399, 622, 927 #### [facility] of [place] [address] Claim Processing Specialist: Scott Nichols MD Hemoglobin (Bld) [Mass/Vol] 13.8 g/dL Normal 11.7-15.5 [facility] Comment on above: Performed By: #### 6 399, 622, 927 #### [facility] of [place] [address] Claim Processing Specialist: Scott Nichols MD Lymphocytes (Bld) [#/Vol] 1.682 10*3/uL Normal 850-3900 [facility] Comment on above: Performed By: #### 6 399, 622, 927 #### [facility] of [place] [address] Claim Processing Specialist: Scott Nichols MD Lymphocytes/100 WBC (Bld) 28.5 % Normal [facility] Comment on above: Performed By: #### 6 399, 622, 927 #### [facility] of [place] [address] Claim Processing Specialist: Scott Nichols MD MCH (RBC) [Entitic mass] 29.9 pg Normal 27.0-33.0 [facility] Comment on above: Performed By: #### 6 399, 622, 927 #### [facility] of [place] [address] Claim Processing Specialist: Scott Nichols MD MCHC (RBC) [Mass/Vol] 34.3 g/dL Normal 32.0-36.0 [facility] Comment on above: Performed By: #### 6 399, 622, 927 #### [facility] of [place] [address] Claim Processing Specialist: Scott Nichols MD MCV (RBC) [Entitic vol] 87.0 fL Normal 80.0-100.0 [facility] Comment on above: Performed By: #### 6 399, 622, 927 #### [facility] [place] [address] Claim Processing Specialist: Scott Nichols MD Monocytes (Bld) [#/Vol] 0.407 10*3/uL Normal 200-950 [facility] Comment on above: Performed By: #### 6 399, 622, 927 #### [facility] of [place] [address] Claim Processing Specialist: Scott Nichols MD Monocytes/100 WBC (Bld) 6.9 % Normal [facility] Comment on above: Performed By: #### 6 399, 622, 927 #### [facility] of [place] [address] Claim Processing Specialist: Scott Nichols MD Neutrophils (Bld) [#/Vol] 3.693 10*3/uL Normal 2902-0247 [facility] Comment on above: Performed By: #### 6 399, 622, 927 #### [facility] of [place] [address] Claim Processing Specialist: Scott Nichols MD Neutrophils/100 WBC (Bld) 62.6 % Normal [facility] Comment on above: Performed By: #### 6 399, 622, 927 #### [facility] of [place] [address] Claim Processing Specialist: Scott Nichols MD Platelet mean volume (Bld) [Entitic vol] 11.9 fL Normal 7.5-12.5 [facility] Comment on above: Performed By: #### 6 399, 622, 927 #### [facility] of [place] [address] Claim Processing Specialist: Scott Nichols MD Platelets (Bld) [#/Vol] 195 10*3/uL Normal 140-400 [facility] Comment on above: Performed By: #### 6 399, 622, 927 #### [facility] [place] [address] Claim Processing Specialist: Scott Nichols MD RBC (Bld) [#/Vol] 4.62 10*6/uL Normal 3.80-5.10 [facility] Comment on above: Performed By: #### 6 399, 622, 927 #### [facility] of [place] [address] Claim Processing Specialist: Scott Nichols MD WBC (Bld) [#/Vol] 5.9 10*3/uL Normal 3.8-10.8 [facility] Comment on above: Performed By: #### 6 399, 622, 927 #### [facility] of [place] [address] Claim Processing Specialist: Scott Nichols MD MAGNESIUMon 09-10-2021 Magnesium [Mass/Vol] 1.7 mg/dL Normal 1.5-2.5 Ques [facility] Comment on above: Order Comment: FASTI NG:UNKNOWN FASTING: UNKNOWN Performed By: #### 6 399, 622, 927 #### [facility] [place] [address] Claim Processing Specialist: Scott Nichols MD VITAMIN B12on 09-10-2021 Cobalamin [...] 6 399, 622, 927 #### [facility] [place] [address] Claim Processing Specialist: Scott Nichols MD ALBUMIN, RANDOM URINE W/CREA TININEon 07-29-2021 ALBUMIN, URINE 2.6 mg/dL Normal See Note: [facility] Comment on above: Result Comment: Refe rence Range: Reference Range Not established Performed By: #### 1 0231, 2040, 4987 #### [facility] [place] [address] Claim Processing Specialist: Scott Nichols MD ALBUMIN/CREATININE RATIO, RANDOM URINE [...] category. Performed By: #### 1 0231, 7600, 65 #### [facility] [place] [address] Claim Processing Specialist: Scott Nichols MD Creatinine (U) [Mass/Vol] 53 mg/dL Normal 20-275 [facility] Comment on above: Performed By: #### 1 0231, 7600, 6517 #### [facility] of [address], [address] [place] [address] Claim Processing Specialist: Scott Nichols MD [facility] 07-29-2021 Albumin [Mass/Vol] 4.6 g/dL Normal 3.6-5.1 [facility] Comment on above: Performed By: #### 1 0231, 0, 6517 #### [facility] of [address], [address] [place] [address] Claim Processing Specialist: Scott Nichols MD Albumin/Globulin [Mass ratio] 1.6 {ratio} Normal 1.0-2.5 [facility] Comment on above: Performed By: #### 1 0231, 0, 6517 #### [facility] of [address], [address] [place] [address] Claim Processing Specialist: Scott Nichols MD ALP [Catalytic activity/Vol] 55 U/L Normal 37-153 [facility] Comment on above: Performed By: #### 1 0231, 0, 6517 #### [facility] [place] [address] Claim Processing Specialist: Scott Nichols MD ALT [Catalytic activity/Vol] 11 U/L Normal 6-29 [facility] Comment on above: Result Comment: NO C OLLECTION DATE RECEIVED. WE HAVE USED THE DATE THE SPECIMEN WAS RECEIVED BY THIS LABORATORY THE COLLECTION DATE. IF THIS IS INCORRECT, PLEASE CONTACT CLIENT SERVICES. PHONE NUMBER: [phone] Performed By: #### 1 0231, 0, 6517 #### [facility] [address], [address] [place] [address] Claim Processing Specialist: Scott Nichols MD AST [Catalytic activity/Vol] 11 U/L Normal 10-35 [facility] Comment on above: Performed By: #### 1 0231, 7600, 6517 #### [facility] [address], [address] [place] [address] Claim Processing Specialist: Scott Nichols MD Bilirubin [Mass/Vol] 0.6 mg/dL Normal 0.2-1.2 [facility] Comment on above: Performed By: #### 1 230, 7599, 6517 #### [facility] [address], [address] [place] [address] Claim Processing Specialist: Scott Nichols MD BUN/CREATININE RATIO NOT APPLICABLE Normal 6-22 [facility] Comment on above: Performed By: #### 1 230, 7599, 17 #### [facility] of [address], [address] [place] [address] Claim Processing Specialist: Scott Nichols MD Calcium [Mass/Vol] 9.5 mg/dL Normal 8.6-10.4 [facility] Comment on above: Performed By: #### 1 230, 7599, 17 #### [facility] [place] [address] Claim Processing Specialist: Scott Nichols MD Chloride [Moles/Vol] 105 mmol/L Normal 98-110 [facility] Comment on above: Performed By: #### 1 230, 7599, 17 #### [facility] [place] [address] Claim Processing Specialist: Scott Nichols MD CO2 [Moles/Vol] 30 mmol/L Normal 20-32 [facility] Comment on above: Performed By: #### 1 230, 7599, 6517 #### [facility] [place] [address] Claim Processing Specialist: Scott Nichols MD Creatinine [Mass/Vol] 0.62 mg/dL Normal 0.60-0.93 [facility] Comment on above: Result Comment: For patients >49 years of age, the reference limit for Creatinine is approximately 13% higher for people identified as -Guatemalan. Performed By: #### 1 230, 7599, 6517 #### [facility] [place] [address] Claim Processing Specialist: Scott Nichols MD eGFR NON-AFR. CENTRAL AFRICAN 91 mL/min/1.73m2 Normal > OR = 60 [facility] Comment on above: Performed By: #### 1 230, 7599, 6516 #### [facility] [place] [address] Claim Processing Specialist: Scott Nichols MD GFR/1.73 sq M.predicted among blacks MDRD (S/P/Bld) [Vol rate/Area] 106 mL/min/{1.73_m2} Normal > OR = 60 [facility] Comment on above: Performed By: #### 1 230, 7599, 6516 #### [facility] [place] [address] Claim Processing Specialist: Scott Nichols MD Globulin (S) [Mass/Vol] 2.8 g/dL Normal 1.9-3.7 [facility] Comment on above: Performed By: #### 1 230, 7599, 6516 #### [facility] [place] [address] Claim Processing Specialist: Scott Nichols MD Glucose [Mass/Vol] 124 mg/dL High 65-99 [facility] Comment on above: Result Comment: Fasting reference interval For someone without known diabetes, a glucose value between 100 and 125 mg/dL is consistent with prediabetes and should be confirmed with a follow-up test. Performed By: #### 1 230, 7599, 6516 #### [facility] [place] [address] Claim Processing Specialist: Scott Nichols MD Potassium [Moles/Vol] 3.7 mmol/L Normal 3.5-5.3 [facility] Comment on above: Performed By: #### 1 230, 7599, 6516 #### [facility] [place] [address] Claim Processing Specialist: Scott Nichols MD Protein [Mass/Vol] 7.4 g/dL Normal 6.1-8.1 [facility] Comment on above: Performed By: #### 1 230, 7599, 6517 #### [facility] of [address], [address] [place] [address] Claim Processing Specialist: Scott Nichols MD Sodium [Moles/Vol] 142 mmol/L Normal 135-146 [facility] Comment on above: Performed By: #### 1 023, 0, 6517 #### [facility] of [address], [address] [place] [address] Claim Processing Specialist: Scott Nichols MD Urea nitrogen [Mass/Vol] 8 mg/dL Normal 7-25 [facility] Comment on above: Performed By: #### 1 0231, 0, 6517 #### [facility] of [place] [address] Claim Processing Specialist: Scott Nichols MD LIPID PANEL, STANDARD 03-0 Cholesterol [Mass/Vol] 156 mg/dL Normal <200 [facility] Comment on above: Performed By: #### 1 023, 7599, 6517 #### [facility] of [address], [address] [place] [address] Claim Processing Specialist: Scott Nichols MD Cholesterol in HDL [Mass/Vol] 67 mg/dL Normal > OR = 50 [facility] Comment on above: Performed By: #### 1 023, 7599, 6517 #### [facility] of [place] [address] Claim Processing Specialist: Scott Nichols MD Cholesterol in LDL [Mass/Vol] [...] LDL-C. Placido VENTURA et al. MACKENZIE. 2013;310(19): 0367-7812 (http://[email or web address].BringMeTheNews/faq/MMT157) Performed By: #### 1 0231, 7600, 6517 #### [facility] [place] [address] Claim Processing Specialist: Scott Nichols MD Cholesterol.total/Ch olesterol in HDL [Mass ratio] 2.3 {ratio} Normal <5.0 [facility] Comment on above: Performed By: #### 1 230, 7599, 6517 #### [facility] [place] [address] Claim Processing Specialist: Scott Nichols MD NON HDL CHOLESTEROL 89 mg/dL (calc) Normal <130 [facility] Comment on above: Result Comment: For patients with diabetes plus 1 major ASCVD risk factor, treating to a non-HDL-C goal of <100 mg/dL (LDL-C of <70 mg/dL) is considered a therapeutic option. Performed By: #### 1 230, 7599, 6517 #### [facility] [place] [address] Claim Processing Specialist: Scott Nichols MD Triglyceride [Mass/Vol] 85 mg/dL Normal <150 [facility] Comment on above: Performed By: #### 1 230, 7599, 6517 #### [facility] [place] [address] Claim Processing Specialist: Scott Nichols MD REFLEXIVE URINE CULTUREon REFLEXIVE URINE CULTURE Normal [facility] Comment on above: Result Comment: NO C ULTURE INDICATED Performed By: #### 3 020 #### [facility] [place] [address] Claim Processing Specialist: Scott Nichols MD URINALYSIS, COMPLETE W/REFLE X TO CULTUREon 02-06-2021 Appearance (U) CLEAR Normal CLEAR [facility] Comment on above: Performed By: #### 3 020 #### [facility] [place] [address] Claim Processing Specialist: Scott Nichols MD BACTERIA NONE SEEN Normal NONE SEEN [facility] Comment on above: Performed By: #### 3 020 #### [facility] of [place] [address] Claim Processing Specialist: Scott Nichols MD Bilirubin Ql (U) Negative Normal NEGATIVE [facility] Comment on above: Performed By: #### 3 020 #### [facility] of [place] [address] Claim Processing Specialist: Scott Nichols MD Color (U) YELLOW Normal YELLOW [facility] Comment on above: Performed By: #### 3 020 #### [facility] of [place] [address] Claim Processing Specialist: Scott Nichols MD Glucose Ql (U) Negative Normal NEGATIVE [facility] Comment on above: Performed By: #### 3 020 #### [facility] [place] [address] Claim Processing Specialist: Scott Nichols MD HYALINE CAST NONE SEEN Normal NONE SEEN [facility] Comment on above: Performed By: #### 3 020 #### [facility] [place] [address] Claim Processing Specialist: Scott Nichols MD Ketones Ql (U) Negative Normal NEGATIVE [facility] Comment on above: Performed By: #### 3 020 #### [facility] [place] [address] Claim Processing Specialist: Scott Nichols MD Leukocyte esterase Test strip Ql (U) Negative Normal NEGATIVE [facility] Comment on above: Performed By: #### 3 020 #### [facility] [place] [address] Claim Processing Specialist: Scott Nichols MD Nitrite Ql (U) Negative Normal NEGATIVE [facility] Comment on above: Performed By: #### 3 020 #### [facility] of [address] Claim Processing Specialist: Scott Nichols MD OCCULT BLOOD TRACE Abnormal NEGATIVE [facility] Comment on above: Performed By: #### 3 020 #### [facility] of [address] [place] [address] Claim Processing Specialist: Scott Nichols MD pH (U) 6.5 [pH] Normal 5.0-8.0 [facility] Comment on above: Performed By: #### 3 020 #### [facility] of [place] [address] Claim Processing Specialist: Scott Nichols MD Protein Ql (U) Negative Normal NEGATIVE [facility] Comment on above: Performed By: #### 3 020 #### [facility] of [place] [address] Claim Processing Specialist: Scott Nichols MD RBC NONE SEEN Normal < OR = 2 [facility] Comment on above: Performed By: #### 3 020 #### [facility] of [place] [address] Claim Processing Specialist: Scott Nichols MD Specific gravity (U) [Rel density] 1.008 Normal 1.001-1.035 [facility] Comment on above: Performed By: #### 3 020 #### [facility] of [place] [address] Claim Processing Specialist: Scott Nichols MD SQUAMOUS EPITHELIAL CELLS NONE SEEN Normal < OR = 5 [facility] Comment on above: Performed By: #### 3 020 #### [facility] of [place] [address] Claim Processing Specialist: Scott Nichols MD WBC NONE SEEN Normal < OR = 5 [facility] Comment on above: Performed By: #### 3 020 #### [facility] of [place] [address] Claim Processing Specialist: Scott Nichols MD BASIC METABOLIC PANEL 12-23 BUN/CREATININE RATIO NOT APPLICABLE Normal - [facility] Comment on above: Order Comment: FASTI NG:YESFASTING: YES Performed By: #### 3 020 #### [facility] of [place] [address] Claim Processing Specialist: Scott Nichols MD Calcium [Mass/Vol] 9.6 mg/dL Normal 8.6-10.4 [facility] Comment on above: Order Comment: FASTI NG:YESFASTING: YES Performed By: #### 3 020 #### [facility] [address], [address] [place] [address] Claim Processing Specialist: Scott Nichols MD Chloride [Moles/Vol] 106 mmol/L Normal 98-110 [facility] Comment on above: Order Comment: FASTI NG:YESFASTING: YES Performed By: #### 3 020 #### [facility] [place] [address] Claim Processing Specialist: Scott Nichols MD CO2 [Moles/Vol] 29 mmol/L Normal 20-32 [facility] Comment on above: Order Comment: FASTI NG:YESFASTING: YES Performed By: #### 3 020 #### [facility] [place] [address] Claim Processing Specialist: Scott Nichols MD Creatinine [Mass/Vol] 0.69 mg/dL Normal 0.50-0.99 [facility] Comment on above: Order Comment: FASTI NG:YESFASTING: YES Result Comment: For patients >49 years of age, the reference limit for Creatinine is approximately 13% higher for people identified as -Guatemalan. Performed By: #### 3 020 #### [facility] [place] [address] Claim Processing Specialist: Scott Nichols MD eGFR NON-AFR. CENTRAL AFRICAN 89 mL/min/1.73m2 Normal > OR = 60 [facility] Comment on above: Order Comment: FASTI NG:YESFASTING: YES Performed By: #### 3 020 #### [facility] [place] [address] Claim Processing Specialist: Scott Nichols MD GFR/1.73 sq M.predicted among blacks MDRD (S/P/Bld) [Vol rate/Area] 103 mL/min/{1.73_m2} Normal > OR = 60 [facility] Comment on above: Order Comment: FASTI NG:YESFASTING: YES Performed By: #### 3 020 #### [facility] [place] [address] Claim Processing Specialist: Scott Nichols MD Glucose [Mass/Vol] 139 mg/dL High 65-99 [facility] Comment on above: Order Comment: FASTI NG:YESFASTING: YES Result Comment: Fasting reference interval For someone without known diabetes, a glucose value >125 mg/dL indicates that they may have diabetes and this should be confirmed with a follow-up test. Performed By: #### 3 020 #### [facility] [place] [address] Claim Processing Specialist: Scott Nichols MD Potassium [Moles/Vol] 3.9 mmol/L Normal 3.5-5.3 [facility] Comment on above: Order Comment: FASTI NG:YESFASTING: YES Performed By: #### 3 020 #### [facility] [place] [address] Claim Processing Specialist: Scott Nichols MD Sodium [Moles/Vol] 140 mmol/L Normal 135-146 [facility] Comment on above: Order Comment: FASTI NG:YESFASTING: YES Performed By: #### 3 020 #### [facility] [place] [address] Claim Processing Specialist: Scott Nichols MD Urea nitrogen [Mass/Vol] 11 mg/dL Normal 7-25 [facility] Comment on above: Order Comment: FASTI NG:YESFASTING: YES Performed By: #### 3 020 #### [facility] [place] [address] Claim Processing Specialist: Scott Nichols MD Vital Signs Date Time Vital Sign Value Performing Clinician Facility 11-20-2024 08:37-0400 Body height 149.9 cm [employer] [facility] 11-20-2024 08:37-0400 Body mass index (BMI) [Ratio] 25.72 kg/m2 [employer] Phone: [facility] [employer] [facility] 11-20-2024 08:37-0400 Body temperature 97.11 [degF] Joaquin Furlong DO Work Phone: [facility] 11-20-2024 08:37-0400 Body weight 57.79 kg Joaquin Furlong DO Work Phone: [facility] 11-20-2024 08:37-0400 Diastolic blood pressure 78 mm[Hg] Joaquin Furlong DO Work Phone: [facility] 11-20-2024 08:37-0400 Heart rate 68 /min Joaquin Furlong DO Work Phone: [facility] 11-20-2024 08:37-0400 Respiratory rate 18 /min Joaquin Furlong DO Work Phone: [facility] 11-20-2024 08:37-0400 SaO2% (BldA) [Mass fraction] 98 % Joaquin Furlong DO Work Phone: [facility] 11-20-2024 08:37-0400 Systolic blood pressure 118 mm[Hg] Joaquin Furlong DO Work Phone: [facility] 10-23-2024 10:31-0400 Body height 149.9 cm [facility] 10-23-2024 10:31-0400 Body mass index (BMI) [Ratio] 24.24 kg/m2 [facility] 10-23-2024 10:31-0400 Body weight 54.43 kg [facility] 1 [facility] 10-10-2024 15:00-0400 Body height 149.9 cm Joaquin Furlong DO Work Phone: [facility] 10-10-2024 15:00-0400 Body mass index (BMI) [Ratio] 26.05 kg/m2 Joaquin Furlong DO Work Phone: [facility] 10-10-2024 15:00-0400 Body weight 58.51 kg Joaquin Furlong DO Work Phone: [facility] 10-10-2024 15:00-0400 Diastolic blood pressure 63 mm[Hg] Joaquin Furlong DO Work Phone: [facility] 10-10-2024 15:00-0400 Systolic blood pressure 126 mm[Hg] Joaquin Furlong DO Work Phone: [facility] 10-05-2024 13:14-0400 Body height 157.5 cm Joaquin Furlong DO Work Phone: [facility] 10-05-2024 13:14-0400 Body mass index (BMI) [Ratio] 23.48 kg/m2 Joaquin Furlong DO Work Phone: [facility] 10-05-2024 13:14-0400 Body temperature 98.49 [degF] Joaquin Furlong DO Work Phone: [facility] 10-05-2024 13:14-0400 Body weight 58.24 kg Joaquin Furlong DO Work Phone: [facility] 10-05-2024 13:14-0400 Diastolic blood pressure 58 mm[Hg] Joaquin Furlong DO Work Phone: [facility] 10-05-2024 13:14-0400 Heart rate 94 /min Joaquin Furlong DO Work Phone: [facility] 10-05-2024 13:14-0400 Respiratory rate 18 /min Joaquin Furlong DO Work Phone: [facility] 10-05-2024 13:14-0400 SaO2% (BldA) [Mass fraction] 97 % Joaquin Furlong DO Work Phone: [facility] 10-05-2024 13:14-0400 Systolic blood pressure 100 mm[Hg] Joaquin Furlong DO Work Phone: [facility] [employer] 09-11-2024 15:27-0400 Body height 157.5 cm Joaquin Furlong DO Work Phone: [facility] [employer] 09-11-2024 15:27-0400 Body mass index (BMI) [Ratio] 23.78 kg/m2 Joaquin Furlong DO Work Phone: [facility] [employer] 09-11-2024 15:27-0400 Body temperature 98.8 [degF] Joaquin Furlong DO Work Phone: [facility] [employer] 09-11-2024 15:27-0400 Body weight 58.97 kg Joaquin Furlong DO Work Phone: [facility] [employer] 09-11-2024 15:27-0400 Diastolic blood pressure 60 mm[Hg] Joaquin Furlong DO Work Phone: [facility] [employer] 09-11-2024 15:27-0400 Heart rate 88 /min Joaquin Furlong DO Work Phone: [facility] [employer] 09-11-2024 15:27-0400 Respiratory rate 18 /min Joaquin Furlong DO Work Phone: [facility] [employer] 09-11-2024 15:27-0400 SaO2% (BldA) [Mass fraction] 98 % Joaquin Furlong DO Work Phone: [facility] [employer] 09-11-2024 15:27-0400 Systolic blood pressure 110 mm[Hg] Joaquin Furlong DO Work Phone: [facility] [employer] 07-06-2024 09:44-0500 Body height 152.4 cm Joaquin Furlong DO Work Phone: [facility] [employer] 07-06-2024 09:44-0500 Body mass index (BMI) [Ratio] 24.88 kg/m2 Joaquin Furlong DO Work Phone: [facility] [employer] [facility] 07-06-2024 09:44-0500 Body temperature 97.7 [degF] Joaquin Furlong DO Work Phone: [facility] [employer] 07-06-2024 09:44-0500 Body weight 57.79 kg Joaquin Furlong DO Work Phone: [facility] [employer] 07-06-2024 09:44-0500 Diastolic blood pressure 72 mm[Hg] Joaquin Furlong DO Work Phone: [facility] [employer] 07-06-2024 09:44-0500 Heart rate 67 /min Joaquin Furlong DO Work Phone: [facility] [employer] 07-06-2024 09:44-0500 Respiratory rate 18 /min Joaquin Furlong DO Work Phone: [facility] [employer] 07-06-2024 09:44-0500 SaO2% (BldA) [Mass fraction] 98 % Joaquin Furlong DO Work Phone: [facility] [employer] 07-06-2024 09:44-0500 Systolic blood pressure 122 mm[Hg] Joaquin Furlong DO Work Phone: [facility] [employer] [facility] 06-02-2024 09:48-0500 Body height 152.4 cm Joaquin Furlong DO Work Phone: [facility] [employer] 06-02-2024 09:48-0500 Body mass index (BMI) [Ratio] 25.15 kg/m2 Joaquin Furlong DO Work Phone: [facility] [employer] 06-02-2024 09:48-0500 Body temperature 98.29 [degF] Joaquin Furlong DO Work Phone: [facility] [employer] [facility] 06-02-2024 09:48-0500 Body weight 58.42 kg Joaquin Furlong DO Work Phone: [facility] [employer] [facility] 06-02-2024 09:48-0500 Diastolic blood pressure 74 mm[Hg] Joaquin Furlong DO Work Phone: [facility] [employer] [facility] 06-02-2024 09:48-0500 Heart rate 71 /min Joaquin Furlong DO Work Phone: [facility] [employer] [facility] 06-02-2024 09:48-0500 Respiratory rate 18 /min Joaquin Furlong DO Work Phone: [facility] [employer] [facility] 06-02-2024 09:48-0500 SaO2% (BldA) [Mass fraction] 98 % Joaquin Furlong DO Work Phone: [facility] [employer] [facility] 06-02-2024 09:48-0500 Systolic blood pressure 140 mm[Hg] Joaquin Furlong DO Work Phone: [facility] 12-15-2023 08:54-0400 Blood Pressure Location Norma Lue [facility] 12-15-2023 08:54-0400 Body temperature 98.6 [degF] Norma Lue [facility] 12-15-2023 08:54-0400 Diastolic blood pressure 84 mm[Hg] Norma Lue [facility] 12-15-2023 08:54-0400 Heart rate 77 /min Norma Lue [facility] 12-15-2023 08:54-0400 Respiratory rate 16 /min Norma Lue [facility] 12-15-2023 08:54-0400 Systolic blood pressure 135 mm[Hg] Norma Lue [facility] 06-09-2023 09:30-0500 Body height 151.13 cm Gino Carrasquillo Other [facility] Other 06-09-2023 09:30-0500 Body mass index (BMI) [Ratio] 25.62 kg/m2 Gino Carrasquillo Other [facility] Other 06-09-2023 09:30-0500 Body weight 58.51 kg Gino Carrasquillo Other [facility] Other 06-09-2023 09:30-0500 Diastolic blood pressure 76 mm[Hg] Gino Carrasquillo Other [facility] Other 06-09-2023 09:30-0500 Systolic blood pressure 122 mm[Hg] Gino Carrasquillo Other [facility] Other 04-13-2023 13:45-0500 Body height 151.13 cm Gino Carrasquillo Other [facility] Other 04-13-2023 13:45-0500 Body mass index (BMI) [Ratio] 25.7 kg/m2 Gino Carrasquillo Other [facility] Other 04-13-2023 13:45-0500 Body weight 58.7 kg Gino Carrasquillo Other [facility] Other 04-13-2023 13:45-0500 Diastolic blood pressure 70 mm[Hg] Gino Carrasquillo Other [facility] Other 04-13-2023 13:45-0500 SaO2% (BldA) [Mass fraction] 97 % Gino Carrasquillo Other [facility] Other 04-13-2023 13:45-0500 Systolic blood pressure 108 mm[Hg] Gino Carrasquillo Other [facility] Other 02-16-2023 13:30-0400 Body height 151.13 cm Gino Carrasquillo Other [facility] Other 02-16-2023 13:30-0400 Body mass index (BMI) [Ratio] 26.01 kg/m2 Gino Carrasquillo Other [facility] Other 02-16-2023 13:30-0400 Body weight 59.42 kg Gino Carrasquillo Other [facility] Other 02-16-2023 13:30-0400 Diastolic blood pressure 80 mm[Hg] Gino Carrasquillo Other [facility] Other 02-16-2023 13:30-0400 SaO2% (BldA) [Mass fraction] 97 % Gino Carrasquillo Other [facility] Other 02-16-2023 13:30-0400 Systolic blood pressure 122 mm[Hg] iGno Carrasquillo Other [facility] Other 02-04-2023 14:00-0400 Body height 151.13 cm Gino Carrasquillo Other [facility] Other 02-04-2023 14:00-0400 Body mass index (BMI) [Ratio] 26.29 kg/m2 Gino Carrasquillo Other [facility] Other 02-04-2023 14:00-0400 Body weight 60.06 kg Gino Carrasquillo Other [facility] Other 02-04-2023 14:00-0400 Diastolic blood pressure 77 mm[Hg] Gino Carrasquillo Other [facility] Other 02-04-2023 14:00-0400 Systolic blood pressure 146 mm[Hg] Gino Carrasquillo Other [facility] Other 01-28-2023 09:45-0400 Body height 151.13 cm Gino Carrasquillo Other [facility] Other 01-28-2023 09:45-0400 Body mass index (BMI) [Ratio] 26.29 kg/m2 Gino Carrasquillo Other [facility] Other 01-28-2023 09:45-0400 Body weight 60.06 kg Gino Carrasquillo Other [facility] Other 01-28-2023 09:45-0400 Diastolic blood pressure 79 mm[Hg] Gino Carrasquillo Other [facility] Other 01-28-2023 09:45-0400 Systolic blood pressure 126 mm[Hg] Gino Carrasquillo Other [facility] Other 09-08-2022 15:00-0400 Body height 151.13 cm Gino Carrasquillo Other [facility] Other 09-08-2022 15:00-0400 Body mass index (BMI) [Ratio] 26.61 kg/m2 Gino Carrasquillo Other [facility] Other 09-08-2022 15:00-0400 Body weight 60.78 kg Gino Carrasquillo Other [facility] Other 09-08-2022 15:00-0400 Diastolic blood pressure 78 mm[Hg] Gino Carrasquillo Other [facility] Other 09-08-2022 15:00-0400 SaO2% (BldA) [Mass fraction] 97 % Gino Carrasquillo Other [facility] Other 09-08-2022 15:00-0400 Systolic blood pressure 118 mm[Hg] Gino Carrasquillo Other [facility] Other 08-27-2022 14:30-0400 Body height 151.13 cm Gino Carrasquillo Other [facility] Other 08-27-2022 14:30-0400 Body mass index (BMI) [Ratio] 26.41 kg/m2 Gino Carrasquillo Other [facility] Other 08-27-2022 14:30-0400 Body weight 60.33 kg Gino Carrasquillo Other [facility] Other 08-27-2022 14:30-0400 Diastolic blood pressure 74 mm[Hg] Gino Carrasquillo Other [facility] Other 08-27-2022 14:30-0400 SaO2% (BldA) [Mass fraction] 95 % Gino Carrasquillo Other [facility] Other 08-27-2022 14:30-0400 Systolic blood pressure 120 mm[Hg] Gino Carrasquillo Other [facility] Other 08-10-2022 14:30-0400 Body height 151.13 cm Gino Carrasquillo Other [facility] Other 08-10-2022 14:30-0400 Body mass index (BMI) [Ratio] 26.81 kg/m2 Gino Carrasquillo Other [facility] Other 08-10-2022 14:30-0400 Body weight 61.24 kg Gino Carrasquillo Other [facility] Other 08-10-2022 14:30-0400 Diastolic blood pressure 74 mm[Hg] Gino Carrasquillo Other [facility] Other 08-10-2022 14:30-0400 SaO2% (BldA) [Mass fraction] 97 % Gino Carrasquillo Other [facility] Other 08-10-2022 14:30-0400 Systolic blood pressure 126 mm[Hg] Gino Carrasuqillo Other [facility] Other 11-26-2021 08:12-0400 Blood Pressure Location Norma Lue [facility] [employer] [facility] 11-26-2021 08:12-0400 Diastolic blood pressure 82 mm[Hg] [facility]a Lue [facility] 11-26-2021 08:12-0400 Heart rate 66 /min Norma Lue [facility] 11-26-2021 08:12-0400 Systolic blood pressure 139 mm[Hg] Norma Lue [facility] [employer] Encounters Encounter Date Encounter Type Care Provider Facility Start: 01-11-2025 End: 01-11-2025 Emergency department patient visit JOAQUIN G [facility] Start: 11-21-2024 End: 11-21-2024 Tele[facility] encounter [facility] Start: 11-20-2024 End: 11-20-2024 ambulatory [facility] Start: 11-20-2024 End: 11-20-2024 Office outpatient visit 25 minutes Joaquinsalazar Devine DO Work Phone: [facility] Comment on above: 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, without long-term current use of insulin ([facility]) (Primary Dx); Excessive cerumen in right ear canal; Hypomagnesemia; Hypokalemia; Type 2 diabetes mellitus without complication, without long-term current use of insulin ([facility] Overweight Start: 11-16-2024 End: 11-16-2024 Refill Joaquin Devine DO Work Phone: [facility] Start: 10-30-2024 End: 10-30-2024 Refill Joaquin Devine DO Work Phone: [facility] Start: 10-23-2024 End: 10-23-2024 ambulatory [facility] Phone Call Provider 1 [facility] - Pre Admit Start: 10-23-2024 End: 10-23-2024 ambulatory [facility] Start: 10-10-2024 End: 10-10-2024 Patient encounter procedure Joaquin Devine DO Work Phone: [facility] Comment on above: Medicare annual well ness visit, subsequent (Primary Dx); Screening for depression Start: 10-10-2024 End: 10-10-2024 ambulatory [facility] Start: 10-05-2024 End: 10-05-2024 Office outpatient visit 25 minutes Joaquin Devine DO Work Phone: [facility] Comment on above: Type 2 diabetes ruma itus without complication, without long- term current use of insulin ([facility]) (Primary Dx); Benign essential hypertension; Hypomagnesemia; Myalgia Start: 10-05-2024 End: 10-05-2024 ambulatory [facility] Start: 10-03-2024 ambulatory Genoveva Hanna Facility:[facility] Start: 09-14-2024 End: 09-15-2024 Orders Only Joaquin Devine DO Work Phone: [facility] Comment on above: Vertigo (Primary Dx) Start: 09-13-2024 End: 09-13-2024 Emergency department patient visit [facility] Soto JULIUS [facility] Start: 09-11-2024 End: 09-11-2024 Office outpatient visit 15 minutes Joaquin Devine DO Work Phone: [facility] Comment on above: Vertigo (Primary Dx) ; Impacted cerumen of right ear Start: 09-11-2024 End: 09-11-2024 ambulatory [facility] Start: 09-10-2024 End: 09-10-2024 Emergency department patient visit [facility] Start: 07-06-2024 End: 07-06-2024 ambulatory [facility] Start: 07-06-2024 End: 07-06-2024 Office outpatient visit 25 minutes Joaquinsalazar Devine DO Work Phone: [facility] Comment on above: Benign essential hyp ertension (Primary Dx); Type 2 diabetes mellitus without complication, without long-term current use of insulin ([facility]); Hyperlipidemia, unspecified hyperlipidemia type; Special screening for malignant neoplasm of colon Start: 07-06-2024 End: 07-06-2024 ambulatory [facility] Start: 06-23-2024 End: 06-23-2024 Refill Joaquin Alonzo DO Work Phone: [facility] Start: 06-02-2024 End: 06-02-2024 Office outpatient visit 15 minutes Joaquin Devine DO Work Phone: [facility] Comment on above: Allergy, initial enc ounter (Primary Dx); Excessive cerumen in right ear canal Start: 06-02-2024 End: 06-02-2024 ambulatory [facility] Start: 05-25-2024 ambulatory [facility] Start: 05-23-2024 End: 05-23-2024 Refill Joaquin Devine DO Work Phone: [facility] Start: 05-13-2024 End: 05-13-2024 ambulatory [facility] Start: 05-09-2024 End: 05-15-2024 Telephone encounter Joaquin Devine DO Work Phone: [facility] Start: 04-24-2024 ambulatory [facility] Start: 04-18-2024 End: 04-18-2024 ambulatory [facility] Start: 04-05-2024 End: 04-05-2024 ambulatory Norma Pulido Facility:[facility] Start: 04-05-2024 End: 04-05-2024 Patient encounter procedure Norma Pulido [facility] Start: 03-07-2024 End: 03-07-2024 ambulatory [facility] Start: 02-21-2024 End: 02-21-2024 ambulatory [facility] Start: 12-31-2023 End: 12-31-2023 ambulatory [facility] Start: 12-15-2023 End: 12-15-2023 Lab Drop off Norma Pulido [facility] Start: 12-15-2023 End: 12-15-2023 ambulatory Norma Pulido Facility:[facility] [employer] Start: 12-15-2023 End: 12-15-2023 Patient encounter procedure [facility]a Pulido [facility] Start: 06-14-2023 End: 06-14-2023 ambulatory Gino Carrasquillo Other [facility] Other Start: 06-14-2023 Telephone encounter Gino Carrasquillo [facility] Start: 06-10-2023 End: 06-10-2023 ambulatory Gino Carrasquillo Other [facility] Other Start: 06-10-2023 Telephone encounter Gino Carrasquillo [facility] Start: 06-09-2023 End: 06-09-2023 ambulatory Gino Carrasquillo Other [facility] Other Start: 06-09-2023 Office outpatient vi sit 25 minutes Gino Carrasquillo [facility] Start: 06-07-2023 End: 06-07-2023 ambulatory Gino Neida Other [facility] Other Start: 06-07-2023 Telephone encounter Gino Carrasquillo [facility] Start: 06-01-2023 End: 06-01-2023 ambulatory Gino Carrasquillo Other [facility] Other Start: 06-01-2023 Telephone encounter Gino Carrasquillo [facility] Start: 05-31-2023 End: 06-01-2023 ambulatory Kenji De Guzman MD Facility: [facility] Start: 05-19-2023 End: 05-19-2023 ambulatory Gino Carrasquillo Other [facility] Other Start: 05-19-2023 Telephone encounter Gino Carrasquillo [facility] Start: 04-13-2023 End: 04-13-2023 ambulatory Gino Carrasquillo Other [facility] Other Start: 04-13-2023 Office outpatient vi sit 15 minutes Gino Carrasquillo [facility] Start: 03-11-2023 End: 03-11-2023 ambulatory Gino Carrasquillo Other [facility] Other Start: 03-11-2023 Telephone encounter Gino Neida [facility] Start: 03-10-2023 End: 03-10-2023 ambulatory Gino Neida Other [facility] Other Start: 03-10-2023 Telephone encounter Gino Neida [facility] Start: 03-01-2023 End: 03-01-2023 ambulatory Gino Neida Other [facility] Other Start: 03-01-2023 Telephone encounter Gino Neida [facility] Start: 02-22-2023 End: 02-22-2023 ambulatory Gino Neida Other [facility] Other Start: 02-22-2023 Telephone encounter Gino Neida [facility] Start: 02-16-2023 End: 02-16-2023 ambulatory Gino Neida Other [facility] Other Start: 02-16-2023 Office outpatient vi sit 15 minutes Gino Carrasquillo [facility] Start: 02-04-2023 End: 02-04-2023 ambulatory Gino Neida Other [facility] Other Start: 02-04-2023 Office outpatient vi sit 15 minutes Gino Carrasquillo [facility] Start: 02-02-2023 End: 02-02-2023 ambulatory Gino Neida Other [facility] Other Start: 02-02-2023 Telephone encounter Gino Carrasquillo [facility] [employer] Start: 01-28-2023 End: 01-28-2023 ambulatory Gino Carrasquillo Other [facility] Other Start: 01-28-2023 Office outpatient vi sit 15 minutes Gino Carrasquillo [facility] Start: 12-18-2022 End: 12-18-2022 ambulatory Gino Carrasquillo Other [facility] Other Start: 12-18-2022 Telephone encounter Gino Carrasquillo [facility] Start: 12-09-2022 End: 12-09-2022 Lab Drop off JUAN CARLOS WESTON [facility] Start: 10-05-2022 End: 10-06-[address] GINO CARRASQUILLO Facility:[facility] Start: 09-23-2022 End: 09-23-2022 ambulatory Gino Carrasquillo Other [facility] Other Start: 09-23-2022 Telephone encounter Gino Carrasquillo [facility] Start: 09-22-2022 End: 09-23-[address] GINO CARRASQUILLO Facility:[facility] Start: 09-08-2022 End: 09-08-2022 ambulatory Gino Carrasquillo Other [facility] Other Start: 09-08-2022 Office outpatient vi sit 15 minutes Gino Carrasquillo [facility] Start: 08-27-2022 End: 08-27-2022 ambulatory Gino Carrasquillo Other [facility] Other Start: 08-27-2022 Office outpatient vi sit 15 minutes Gino Carrasquillo [facility] Start: 08-13-2022 End: 08-13-2022 ambulatory Gino Carrasquillo Other [facility] Other Start: 08-13-2022 Telephone encounter Gino Carrasquillo [facility] Start: 08-12-2022 End: 08-13-[address] GINO CARRASQUILLO Facility:[facility] Start: 08-11-2022 End: 08-12-[address] GINO CARRASQUILLO Facility:[facility] Start: 08-10-2022 End: 08-10-2022 ambulatory Gino Carrasquillo Other [facility] Other Start: 08-10-2022 Office outpatient ne w 45 minutes Gino Carrasquillo [facility] Start: 07-16-2022 End: 07-16-2022 ambulatory [facility] . Facility:[facility] Start: 03-09-2022 End: 03-09-[address] JOAQUIN DEVINE Facility:[facility] Start: 01-27-2022 End: 01-27-[address] JOAQUIN DEVINE Facility:[facility] Start: 11-26-2021 End: 11-26-2021 Lab Drop off Norma Pulido [facility] Start: 11-26-2021 End: 11-26-2021 Patient encounter procedure Norma Pulido [facility] Start: 11-22-2021 End: 11-23-[address] JOAQUIN DEVINE Facility:[facility] Start: 11-12-2021 End: 11-12-[address] JOAQUIN DEVINE Facility: Procedures Date Procedure Procedure Detail Performing Clinician Start: 11-20-2024 Adult depression scr eening assessment Joaquin Furlong DO Work Phone: Start: 10-10-2024 Adult depression scr eening assessment Joaquin Furlong DO Work Phone: Start: 05-13-2024 Mammography Joaquin Fur long DO Work Phone: Start: 02-21-2024 Adult depression scr eening assessment Joaquin Furlong DO Work Phone: Start: 06-11-2023 Diabetic retinal eye exam Joaquin Furlong DO Work Phone: Start: 06-16-2021 Cystoscopy JUAN CARLOS PRAJAPATI Start: 03-26-2016 Colonoscopy Joaquin Fur long DO Work Phone: Colonoscopy Norma Lue Cystoscopy Norma Lue Hysterectomy Norma Lue Plan of Treatment Date Care Activity Detail Author Start: 03-26-2026 Screening for malign ant neoplasm of colon Colonoscopy [facility] Start: 11-20-2025 Adult BMI Follow Up Plan Adult BMI F ollow Up Plan [facility] Start: 11-20-2025 Adult BMI Screening Adult BMI Screen ing [facility] [employer] [facility] Start: 11-20-2025 Depression Screening Depression Scre ening [facility] Start: 11-20-2025 Fall Risk Screening Fall Risk Screen ing [facility] Start: 11-20-2025 Tobacco Screening Tobacco Screening [facility] Start: 10-23-2025 Adult BMI Screening Adult BMI Screen ing [facility] [facility] Start: 10-23-2025 Tobacco Screening Tobacco Screening [facility] Start: 10-11-2025 End: 10-11-2025 Patient encounter procedure 10/11/2025 4:00 PM EDT Office Visit [facility] [address] [place] [address] [facility] Start: 10-10-2025 Adult BMI Screening Adult BMI Screen ing [facility] [facility] Start: 10-10-2025 Depression Screening Depression Scre ening [facility] Start: 10-10-2025 Fall Risk Screening Fall Risk Screen ing [facility] Start: 10-10-2025 Medicare Annual Well ness Visit Medicare Annual Wellness Visit [facility] Start: 10-05-2025 Adult BMI Screening Adult BMI Screen ing [facility] Start: 10-05-2025 Tobacco Screening Tobacco Screening [facility] Start: 09-13-2025 Adult BMI Screening Adult BMI Screen ing [facility] [employer] [facility] Start: 09-13-2025 Tobacco Screening Tobacco Screening [facility] Start: 09-10-2025 Adult BMI Screening Adult BMI Screen ing [facility] Start: 09-10-2025 Tobacco Screening Tobacco Screening [facility] Start: 07-06-2025 Adult BMI Screening Adult BMI Screen ing [facility] Start: 07-06-2025 Fall Risk Screening Fall Risk Screen ing [facility] [employer] [facility] Start: 07-06-2025 Tobacco Screening Tobacco Screening [facility] Start: 06-02-2025 Adult BMI Screening Adult BMI Screen ing [facility] Start: 06-02-2025 Tobacco Screening Tobacco Screening [facility] Start: 05-13-2025 Screening for malign ant neoplasm of breast Mammogram [facility] Start: 04-18-2025 Adult BMI Screening Adult BMI Screen ing [facility] Start: 04-18-2025 Tobacco Screening Tobacco Screening [facility] Start: 02-21-2025 End: 02-21-2025 Patient encounter procedure 02/21/2025 8:30 AM EDT Office Visit [facility] [address] [place] [address] Joaquin Devine DO [address], [place] [address] [facility] Start: 02-20-2025 Depression Screening Depression Scre ening [facility] Start: 02-20-2025 Diabetic foot examination Diabetic Foot Exam [facility] Start: 02-20-2025 Fall Risk Screening Fall Risk Screen ing [facility] Start: 01-22-2025 Influenza vaccination Influenza Vacc ine [facility] Start: 11-20-2024 End: 11-20-2024 Patient encounter procedure 11/20/2024 8:30 AM EDT Office Visit [facility] [address] [place] [address] Joaquin Devine DO [address], [place] [address] [facility] Start: 11-10-2024 End: 11-10-2024 Patient encounter procedure 11/10/2024 9:30 AM EDT Office Visit [facility] [address] [place] [address] [facility] Start: 10-24-2024 End: 10-24-2024 Admission to same day surgery center [facility] - Endoscopy Comment on above: COLONOSCOPY DIAGNOST IC / SCREENING [G0121] Start: 10-24-2024 End: 10-24-2024 Colon ca scrn not hi rsk ind [facility] Start: 10-24-2024 Subsequent hospital visit by physician [facility] - Endoscopy Start: 10-23-2024 End: 10-23-2024 ambulatory 10/23/2024 3:30 PM EDT Support Visit [facility] - Pre Admit [address] [place] [id number] [facility] - Pre Admit Start: 10-10-2024 End: 10-10-2024 Patient encounter procedure 10/10/2024 3:00 PM EDT Office Visit [facility] Internal Medicine - Family Medicine [address] [place] [address] [facility] Start: 10-06-2024 Medicare Annual Well ness Visit Medicare Annual Wellness Visit [facility] Start: 10-05-2024 End: 10-05-2024 Patient encounter procedure 10/05/2024 1:30 PM EDT Office Visit [facility] [address] [place] [address] Joaquin Devine, DO [address], [facility] [place] [place] [address] [facility] - Family Medicine Start: 09-27-2024 End: 09-27-2024 Admission to same day surgery center 09/27/2024 10:00 AM EDT - 09/27/2024 11:00 AM EDT Surgery [facility] - Endoscopy [address] [place] [address] Jack Dupree, [address] [place] [address] COLONOSCOPY DIAGNOSTIC / SCREENING [74951 (CPT )] [facility] - Endoscopy Comment on above: COLONOSCOPY DIAGNOST IC / SCREENING [96609 (CPT )] Start: 09-27-2024 End: 09-27-2024 Colonoscopy flx dx w/collj spec when pfrmd COLONOSCOPY DIAGNOSTIC / SCREENING Screen for colon cancer 09/27/2024 10:00 AM EDT [facility] Start: 09-27-2024 Subsequent hospital visit by physician 09/27/2024 10:00 AM EDT Hospital Encounter [facility] - Endoscopy [address] [facility] [place] [id number] Jack Dupree, DO [address] [place] [address] [facility] - Endoscopy Start: 09-26-2024 End: 09-26-2024 ambulatory 09/26/2024 4:10 PM EDT Support Visit [facility] - Pre Admit [address] [place] [id number] [facility] - Pre Admit Start: 09-13-2024 Adult BMI Follow Up Plan Adult BMI F ollow Up Plan [facility] Start: 06-11-2024 Glaucoma screening Diabetic Op hthalmology Exam [facility] Start: 06-02-2024 End: 06-02-2024 Patient encounter procedure 06/02/2024 9:45 AM EST Office Visit [facility] [address] [place] [address] Joaquin Devine, DO [address], [place] [address] [facility] Start: 05-29-2024 End: 05-29-2024 Patient encounter procedure 05/29/2024 10:30 AM EST Appointment [facility] [address] [place] [address] [facility] Start: 01-23-2024 COVID-19 Vaccine ( season) COVID-19 Vaccine ( season) [facility] Start: 01-23-2024 Influenza vaccination Influenza Vacc ine [facility] Start: 10-14-2021 DTaP,Tdap and Td Vaccines (2 - Td or Tdap) DTaP,Tdap and Td Vaccines (2 - Td or Tdap) [facility] Start: [facility] Administration of varicella zoster vaccine Zoster (Shingles) Vaccine (1 of 2) [facility] Start: 1951 Urine screening for protein Urine Microalbumin [facility] End: 11-20-2025 Basic metabolic 2000 panel - Serum or Plasma Basic Metabolic Panel Lab Routine Hypokalemia 1 Occurrences starting 11/20/2024 until 11/20/2025 [employer] Work Phone: Comment on above: 1 Occurrences starti ng 11/20/2024 until 11/20/2025 Basic metabolic 2000 panel - Serum or Plasma Basic Metabolic Panel Lab Routine Hypokalemia 11/20/2024 9:03 AM EDT [facility] Colon ca scrn not hi rsk ind COLONOSCOPY DIAGNOSTIC / SCREENING Colon cancer screening [facility] End: 07-06-2025 Colonoscopy Colonoscopy GI Routine Special screening for malignant neoplasm of colon 1 Occurrences starting 07/06/2024 until 07/06/2025 [facility] Comment on above: 1 Occurrences starti ng 07/06/2024 until 07/06/2025 End: 07-06-2025 Comprehensive metabolic 2000 panel - Serum or Plasma Comprehensive metabolic panel Lab Routine Benign essential hypertension 1 Occurrences starting 07/06/2024 until 07/06/2025 [facility] Comment on above: 1 Occurrences starti ng 07/06/2024 until 07/06/2025 End: 07-06-2025 Hemoglobin A1c/Hemoglobin.total in Blood Hemoglobin A1c Lab Routine Type 2 diabetes mellitus without complication, without long-term current use of insulin [facility] 1 Occurrences starting 07/06/2024 until 07/06/2025 [facility] Comment on above: 1 Occurrences starti ng 07/06/2024 until 07/06/2025 End: 11-20-2025 Hemoglobin A1c/Hemoglobin.total in Blood Hemoglobin A1c Lab Routine Type 2 diabetes mellitus without complication, without long-term current use of insulin ([facility]) 1 Occurrences starting 11/20/2024 until 11/20/2025 [employer] Comment on above: 1 Occurrences starti ng 11/20/2024 until 11/20/2025 Hemoglobin A1c/Hemoglobin.total in Blood Hemoglobin A1c Lab Routine Type 2 diabetes mellitus without complication, without long-term current use of insulin ([facility]) 11/20/2024 9:03 AM EDT [facility] End: 07-06-2025 Lipid 1996 panel - Serum or Plasma Lipid profile Lab Routine Hyperlipidemia, unspecified hyperlipidemia type 1 Occurrences starting 07/06/2024 until 07/06/2025 [employer] Work Phone: Comment on above: 1 Occurrences starti ng 07/06/2024 until 07/06/2025 End: 11-20-2025 Magnesium [Mass/volume] in Serum or Plasma Magnesium Lab Routine Hypomagnesemia 1 Occurrences starting 11/20/2024 until 11/20/2025 [facility] Comment on above: 1 Occurrences starti ng 11/20/2024 until 11/20/2025 Magnesium [Mass/volu me] in Serum or Plasma Magnesium Lab Routine Hypomagnesemia 11/20/2024 9:03 AM EDT [facility] End: 11-20-2025 Thyrotropin [Units/volume] in Serum or Plasma TSH Lab Routine Type 2 diabetes mellitus without complication, without long-term current use of insulin ([facility]) 1 Occurrences starting 11/20/2024 until 11/20/2025 [facility] Comment on above: 1 Occurrences starti ng 11/20/2024 until 11/20/2025 Thyrotropin [Units/volume] in Serum or Plasma TSH Lab Routine Type 2 diabetes mellitus without complication, without long-term current use of insulin ([facility]) 11/20/2024 9:03 AM EDT Side.Cr [facility] Immunizations Immunization Date Immunization Notes Care Provider Fa cili 04-24-2024 influenza, high dose seasonal, preservative-free Joaquin Furlong DO Work Phone: [facility] 04-24-2024 influenza virus vaccine, unspecified formulation Joaquin Furlong DO Work Phone: [facility] 03-15-2022 Influenza Vaccine, Quadrivalent, Adjuvanted Joaquin Furlong DO Work Phone: [facility] 03-15-2022 influenza virus vaccine, unspecified formulation Joaquin Furlong DO Work Phone: [facility] 05-06-2021 Influenza, High-dose , Quadrivalent Joaquin Furlong DO Work Phone: [facility] 02-22-2020 influenza, high dose seasonal, preservative-free Joaquin Furlong DO Work Phone: [facility] 02-06-2020 influenza, high dose seasonal, preservative-free Joaquin Furlong DO Work Phone: [facility] 08-02-2019 pneumococcal polysaccharide vaccine, 23 valent Joaquin Furlong DO Work Phone: [facility] 07-31-2019 influenza, high dose seasonal, preservative-free Joaquin Furlong DO Work Phone: [facility] 05-21-2018 influenza, high dose seasonal, preservative-free Joaquin Furlong DO Work Phone: [facility] 11-11-2017 pneumococcal polysaccharide vaccine, 23 valent Joaquin Furlong DO Work Phone: [facility] 07-20-2014 pneumococcal conjuga te vaccine, 13 valent Joaquin Furlong DO Work Phone: [facility] 02-24-2013 influenza virus vaccine, unspecified formulation Joaquin Furlong DO Work Phone: [facility] 10-15-2011 tetanus toxoid, redu wanda diphtheria toxoid, and acellular pertussis vaccine, adsorbed Joaquin Devine DO Work Phone: [facility] NEGATED: Highlighted row has not occurred!11-26-2021 SARS-CoV-2 mRNA (tozinameran 5y-11y) vaccine Norma Pulido [facility] Payers Date Payer Category Payer Private Health Insurance 2022 Medicare HMO [employer] MED[employer] [id number] 1958 Medicare [id number] 1958 Medicare [id number] 1958 Medicare [id number] 1950 Unknown [id number] .16840.1.887110.3.579.2. 59 1950 Unknown [id number] 2.16840.1.666995.3.579.2. 593 1950 Unknown [id number] 2.16.840.1.892480.3.579.2. 593 1951 Unknown [id number] 2.16.840.1.988887.3.579.2. 593 1951 Unknown [id number] 2.16.840.1.060205.3.579.2. 593 1951 Unknown [id number] 2.16.840.1.539749.3.579.2. 593 1951 Unknown [id number] 2.16.840.1.279927.3.579.2. 593 1951 Unknown [id number] 2.16.840.1.670007.3.579.2. 593 1951 Unknown [id number] 2.16.840.1.445385.3.579.2. 593 1951 Unknown [id number] 2.16.840.1.050825.3.579.2. 196 1951 Unknown [id number] 2.16.840.1.485063.3.579.2. 1286 1951 Unknown [id number] 2.16.840.1.649833.3.579.2. 727 1951 Unknown [id number] 2.16.840.1.347981.3.579.2. 727 1951 Unknown [id number] 2.16.840.1.542868.3.579.2. 727 1951 Unknown [id number] 2.16.840.1.356859.3.579.2. 727 1951 Unknown [id number] 2.16.840.1.356549.3.579.2. 1286 1951 Unknown [id number] 2.16.840.1.101949.3.579.2. 1286 1951 Unknown [id number] 2.16.840.1.888192.3.579.2. 1286 1951 Unknown [id number] 2.16.840.1.865205.3.579.2. 1286 1951 Unknown [id number] 2.16.840.1.836594.3.579.2. 1286 1951 Unknown [id number] 2.16.840.1.452111.3.579.2. 1285 1951 Unknown [id number] 2.16.840.1.185212.3.579.2. 1285 1951 Unknown [id number] 2.16.840.1.112651.3.579.2. 1285 1951 Unknown [id number] 2.16.840.1.363981.3.579.2. 1285 1951 Unknown [id number] 2.16.840.1.300461.3.579.2. 1285 1951 Unknown [id number] 2.16.840.1.036117.3.579.2. 1285 1951 Unknown [id number] 2.16.840.1.299970.3.579.2. 1285 1951 Unknown [id number] 2.16.840.1.943477.3.579.2. 1285 1951 Unknown [id number] 2.16.840.1.102577.3.579.2. 1285 1951 Unknown [id number] 2.16.840.1.433619.3.579.2. 1285 1951 Unknown [id number] 2.16.840.1.748565.3.579.2. 1285 1951 Unknown [id number] 2.16.840.1.457541.3.579.2. 1286 Social History Date Type Detail Facility Start: 06-04-2021 End: 04-13-2022 Tobacco smoking status Never smoked tobacco (finding) [facility] Start: 10-07-2023 End: 11-20-2024 Sex Assigned At Female [facility] Tobacco smoking status Never [facility] Start: 04-13-2022 Tobacco use and exposure Smokeless tobacco non-user [facility] Start: 04-18-2024 End: 11-20-2024 Alcoholic beverage intake Ex-drinker (finding) [facility] Start: 10-07-2023 End: 11-20-2024 History of Social function [facility] Has the [employer], [employer], [employer], or water company threatened to shut off services in your home in past 12Mo No [facility] Are you now , , , , never or living with a partner? [facility] How often to you hav e a drink containing alcohol? Monthly or less [facility] How often do you hav e 6 or more drinks on 1 occasion? Never [facility] Do you feel stress - tense, restless, nervous, or anxious, or unable to sleep at night because your mind is troubled all the time - these days [OSQ] Not at all [facility] Start: 1950 Sex assigned at Not on file P [facility] Start: 12-27-2014 Sex Female (finding) [facility] Medical Equipment Procedure Code Equipment Code Equipment Origin al Text Equipment Identifier Dates [id number] Start: 02-25-2024 1 strip by other route as needed for high blood sugar. [id number] Start: 02-21-2024 Goals Date Patient Goal Desired Activity /State Personal health goal Functional Status Date Assessment Result Facility 04-05-2024 Functional Status N/A [facility] 12-15-2023 Functional Status N/A [facility] 11-26-2021 Functional Status N/A [facility] Clinical Notes 11-26-2021 to 11-21-2024 Telephone Encounter - Mary Hoover CMA - 11/21/2024 11:17 AM EDTTelephone Encounter - Mary Hoover CMA - 11/21/2024 11:17 AM EDTTelephone Encounter - Mary Hoover CMA - 11/21/2024 9:53 AM EDT Note Date & Type Note Facility 11-21-2024 Miscellaneous Notes Pt was notified of lab results and understood. documented in this encounter [facility] 11-21-2024 Telephone encounter Note Pt was notified of lab results and understood. [facility] 11-21-2024 Miscellaneous Notes ----- Message from Joaquin Devine DO sent at 11/21/2024 9:28 AM EDT ----- Her labs look good. Her A1c was 7% which is as good as it has been in a while. Her basic metabolic panel was normal. Her glucose was 144 at that moment. Her magnesium and TSH were normal. Continue current regimen. ----- Message ----- From: Lab, Background User Sent: 11/20/2024 6:50 PM EDT To: Joaquin Devine DO I called and left message for pt to call back for results. documented in this encounter [facility] 11-21-2024 Telephone encounter Note ----- Message from Joaquin Devine DO sent at 11/21/2024 9:28 AM EDT ----- Her labs look good. Her A1c was 7% which is as good as it has been in a while. Her basic metabolic panel was normal. Her glucose was 144 at that moment. Her magnesium and TSH were normal. Continue current regimen. ----- Message ----- From: Lab, Background User Sent: 11/20/2024 6:50 PM EDT To: Joaquin Devine DO [facility] 11-21-2024 Telephone encounter Note I called and left message for pt to call back for results. [facility] 11-20-2024 History of Presen t illness Narrative Subjective Patient ID: Jamir Jones is a 74 y.o. female. Jamir Ricks presents for a recheck of multiple problems. She made the medication changes and her stomach is feeling much better. She stopped the magnesium because of GI upset and cut back on the metformin to 1 a day and stopped the atorvastatin in her stomach is feeling better. She did not get her colonoscopy done. She got conflicting evidence on using the colonoscopy prep so she cancelled her colonoscopy. She got scared. She does not want to reschedule it right now since she is feeling better. Her insurance company did a stool check for her through the mail and it was okay. She does have an itchy right ear. She would like me to check it to see if she needs to use ear drops for wax. Overall she is feeling much better . Her myalgias have improved. The following portions of the patient's history were reviewed and updated as appropriate: allergies, current medications, past family history, past medical history, past social history, past surgical history, problem list, and medication reconciliation was completed including current medication and post discharge medication. Review of Systems Constitutional: Negative. Respiratory: Negative. Gastrointestinal: Positive for abdominal pain (Much better). Genitourinary: Negative. Objective Physical Exam Vitals reviewed. Constitutional: General: She is not in acute distress. Appearance: She is not ill-appearing. HENT: Head: Normocephalic. Right Ear: Tympanic membrane and ear canal normal. Ears: Comments: Mild cerumen on the right EAC but nonobstructing Cardiovascular: Rate and Rhythm: Normal rate and regular rhythm. Heart sounds: Normal heart sounds. No murmur heard. No friction rub. No gallop. Pulmonary: Effort: Pulmonary effort is normal. Breath sounds: Normal breath sounds. No stridor. No wheezing, rhonchi or rales. Abdominal: General: Bowel sounds are normal. There is no distension. Palpations: Abdomen is soft. There is no mass. Tenderness: There is abdominal tenderness (more periumbilical area today). There is no guarding or rebound. Negative signs include Rovsing's sign, McBurney's sign and psoas sign. Hernia: No hernia is present. Musculoskeletal: Cervical back: Neck supple. Skin: General: Skin is warm. Neurological: General: No focal deficit present. Mental Status: She is alert. Psychiatric: Mood and Affect: Mood normal. Behavior: Behavior normal. Assessment/Plan Jamir Ricks was seen today for 6 week f/u. Diagnoses and all orders for this visit: Type 2 diabetes mellitus with diabetic nephropathy, without long-term current use of insulin ([facility]) Check A1c. Excessive cerumen in right ear canal She has just mild cerumen in the right ear which is nonobstructing. She does not need drops at this time. Itchiness is possibly due to allergies. Recommended byep-yre-begxamh antihistamine as needed. Hypomagnesemia - Magnesium; Future - Magnesium Check magnesium level. She stopped the supplement due to GI upset. Hypokalemia - Basic Metabolic Panel; Future - Basic Metabolic Panel Check potassium Type 2 diabetes mellitus without complication, without long-term current use of insulin ([facility]) - Hemoglobin A1c; Future - TSH; Future - TSH - Hemoglobin A1c Check TSH and A1c Overweight She is overweight just barely with clothes. She would benefit from weight loss. Patient noted to have elevated BMI and the following intervention(s) were applied: encouragement to exercise and prescribed diet education. Since she is feeling better and she is anxious about the colonoscopy she does not want to do it right now. Her insurance company also screen her for colon cancer and she is reassured that she does not have it. I did explain the colonoscopy is better at detecting colon cancer but she would like to hold off on screening right now. documented in this encounter [facility] 10-23-2024 Miscellaneous Notes Preoperative Education Checklist- General Surgery date: 10/24/24 Surgery time: 1100 Arrival time: 1000 1. Bring a photo ID and your insurance card with you the day of surgery. You will check in at the main lobby of the [facility]- registration desk is straight ahead as soon as you walk in. Tell them you are here for surgery. 2. If you have a Living Will/Durable Power of Real Estate Transaction Coordinator for Health Care that is not on file here, please bring a copy the day of surgery. 3. Please shower/bathe the night before surgery with the provided soap or wipes. Do not shower the morning of surgery- you will do use wipes when you arrive here at the hospital before getting into your surgical gown. Do not shave the area of your procedure for 2 days prior to your surgery. 4. NO powder, lotion, perfume/cologne, aftershave, make-up, deodorant, or hair products after you have bathed. 5. NO nail greenlandic/acrylic on at least one finger. If you are having a hand, wrist or foot surgery then all nail greenlandic and artificial/acrylic nails must be removed from that hand or foot. 6. Avoid ALL Aspirin and non-steroidal anti-inflammatory drugs and certain vitamins (Ibuprofen, Advil, Aleve, Excedrin, Meloxicam, Celebrex, fish/krill oil, etc.) for 7 days prior to surgery as instructed by your surgeon and/or your prescribing doctor. Tylenol IS ALLOWED. If you are on Ticlid, Xarelto, Eliquis, Pradaxa, Plavix or Coumadin, please check with your prescribing doctor for instructions for when to stop them. 7. If you use an inhaler, continue to use it routinely. 8. Nothing to eat or drink (not even water, gum, mints, or hard candy!) AFTER midnight prior to your surgery. 9. Take only medications that you are instructed to on the morning of surgery with a TINY SIP OF WATER. 10. Choose a responsible adult that will be able to drive you home when you are discharged from your hospital stay for your surgery and can stay with you in your home for 24 hours after your procedure. You must NOT drive any vehicle or operate any machinery for 24 hours after surgery. 11. When you dress for your appointment, please wear loose fitting clothing that is appropriate to accommodate your surgical area procedure. BRING WITH YOU ANY DEVICES YOU MAY NEED: MALA hose, ice machine, sling/swath, brace or special shoe, oversized zip-up or button up shirt, CPAP machine if staying overnight. 12. Do NOT wear jewelry, watches, or any piercings or metal for surgery- leave these valuables and money at home. 13. Do NOT wear contact lenses for surgery- glasses are okay if needed. 14. The anesthesiologist will talk with you the day of surgery and will ask you to sign a Consent Form. 15. Refrain from smoking or any type of tobacco use for at least 8 hours and marijuana for 24 hours prior to arrival for your surgery. 16. Notify your surgeon if you develop any illness before your surgery. 17. If you are staying overnight, please DO NOT BRING your home medications with you. 18. If you have any questions prior to surgery, please call the Preadmission Testing office at [phone], Mon.-Fri. 7 a.m.-3 p.m. Leave a voicemail if needed. Pre-Surgery Instructions: Medication Instructions amLODIPine (NORVASC) 5 mg tablet Continue as prescribed, take morning of procedure blood-glucose meter (ONETOUCH VERIO FLEX METER) misc Stop taking 0 days prior to procedure calcium carbonate-vitamin D3 (CALTRATE) 600 mg(1,500mg) -400 units per tablet Stop taking 0 days prior to procedure lancets (onetouch ultrasoft) misc Stop taking 0 days prior to procedure magnesium oxide (MAGOX) 400 mg tablet Stop taking 0 days prior to procedure metFORMIN (GLUCOPHAGE) 500 mg tablet Stop taking 0 days prior to procedure ONETOUCH DELICA PLUS LANCET 30 gauge misc Stop taking 0 days prior to procedure ONETOUCH VERIO TEST STRIPS strip Stop taking 0 days prior to procedure [facility] Preoperative Education Checklist- General Surgery date: 10/24/24 Surgery time: 1100 Arrival time: 1000 1. Bring a photo ID and your insurance card with you the day of surgery. You will check in at the main lobby of the [facility]- registration desk is straight ahead as soon as you walk in. Tell them you are here for surgery. 2. If you have a Living Will/Durable Power of Real Estate Transaction Coordinator for Health Care that is not on file here, please bring a copy the day of surgery. 3. Please shower/bathe the night before surgery with the provided soap or wipes. Do not shower the morning of surgery- you will do use wipes when you arrive here at the hospital before getting into your surgical gown. Do not shave the area of your procedure for 2 days prior to your surgery. 4. NO powder, lotion, perfume/cologne, aftershave, make-up, deodorant, or hair products after you have bathed. 5. NO nail greenlandic/acrylic on at least one finger. If you are having a hand, wrist or foot surgery then all nail greenlandic and artificial/acrylic nails must be removed from that hand or foot. 6. Avoid ALL Aspirin and non-steroidal anti-inflammatory drugs and certain vitamins (Ibuprofen, Advil, Aleve, Excedrin, Meloxicam, Celebrex, fish/krill oil, etc.) for 7 days prior to surgery as instructed by your surgeon and/or your prescribing doctor. Tylenol IS ALLOWED. If you are on Ticlid, Xarelto, Eliquis, Pradaxa, Plavix or Coumadin, please check with your prescribing doctor for instructions for when to stop them. 7. If you use an inhaler, continue to use it routinely. 8. Nothing to eat or drink (not even water, gum, mints, or hard candy!) AFTER midnight prior to your surgery. 9. Take only medications that you are instructed to on the morning of surgery with a TINY SIP OF WATER. 10. Choose a responsible adult that will be able to drive you home when you are discharged from your hospital stay for your surgery and can stay with you in your home for 24 hours after your procedure. You must NOT drive any vehicle or operate any machinery for 24 hours after surgery. 11. When you dress for your appointment, please wear loose fitting clothing that is appropriate to accommodate your surgical area procedure. BRING WITH YOU ANY DEVICES YOU MAY NEED: MALA hose, ice machine, sling/swath, brace or special shoe, oversized zip-up or button up shirt, CPAP machine if staying overnight. 12. Do NOT wear jewelry, watches, or any piercings or metal for surgery- leave these valuables and money at home. 13. Do NOT wear contact lenses for surgery- glasses are okay if needed. 14. The anesthesiologist will talk with you the day of surgery and will ask you to sign a Consent Form. 15. Refrain from smoking or any type of tobacco use for at least 8 hours and marijuana for 24 hours prior to arrival for your surgery. 16. Notify your surgeon if you develop any illness before your surgery. 17. If you are staying overnight, please DO NOT BRING your home medications with you. 18. If you have any questions prior to surgery, please call the Preadmission Testing office at [phone], Mon.-Fri. 7 a.m.-3 p.m. Leave a voicemail if needed. Pre-Surgery Instructions: Medication Instructions amLODIPine (NORVASC) 5 mg tablet Continue as prescribed, take morning of procedure blood-glucose meter (ONETOUCH VERIO FLEX METER) misc Stop taking 0 days prior to procedure calcium carbonate-vitamin D3 (CALTRATE) 600 mg(1,500mg) -400 units per tablet Stop taking 0 days prior to procedure lancets (onetouch ultrasoft) misc Stop taking 0 days prior to procedure magnesium oxide (MAGOX) 400 mg tablet Stop taking 0 days prior to procedure metFORMIN (GLUCOPHAGE) 500 mg tablet Stop taking 0 days prior to procedure ONETOUCH DELICA PLUS LANCET 30 gauge misc Stop taking 0 days prior to procedure ONETOUCH VERIO TEST STRIPS strip Stop taking 0 days prior to procedure [facility] 10-10-2024 History of Presen t illness Narrative Subjective SUBJECTIVE: Patient ID: Jamir Jones is a 74 y.o. female who presents for a Medicare Annual Wellness exam. HPI The following portions of the patient's history were reviewed and updated as appropriate: allergies, current medications, past family history, past medical history, past social history, past surgical history and problem list. AWV FLOWSHEET : Lifestyle Assessment Do you smoke or use smokeless tobacco?: No If you smoke or use smokeless tobacco, are you ready to quit?: NA Are you exposed to secondhand smoke?: No On average, how many drinks of alcohol do you consume in a week?: None Do you exercise for 30 or more minutes on average at least 3 days a week?: Often Do you have any tooth, denture, or oral problems?: No Do you snore or has anyone told you that you snore?: (!) Yes Do you try to eat a balanced diet?: Yes Do you experience leakage of urine, also known as urinary incontinence?: (!) Sometimes Do you have difficulty bathing?: No Do you have difficulty dressing?: No Do you have difficulty grooming?: No Do you have difficulty eating?: No Do you have difficulty getting out of a chair?: No Do you have difficulty walking?: No Do you have difficulty using the toilet?: No Do you have difficulty doing laundry?: No Do you have difficulty with housekeeping?: No Do you have difficulty preparing a meal?: No Do you have difficulty shopping?: No Do you have difficulty using transportation?: No Do you have difficulty paying bills?: No Do you have difficulty managing finances?: No Fall Risk Fall Risk Assessment Completed?: Yes Have you fallen in the past year?: (!) Yes How many times?: 1 Were you injured?: (!) Yes Are you worried about falling?: (!) Yes Do you feel unsteady when standing or walking?: (!) Yes Risk Stratification: High Risk Depression Screening Little interest or pleasure in doing things: Not at all Feeling down, depressed, or hopeless: Not at all Trouble falling or staying asleep, or sleeping too much: Not at all Feeling tired or having little energy: Not at all Poor appetite or overeating: Not at all Feeling bad about yourself - or that you are a failure or have let yourself or your family down: Not at all Trouble concentrating on things, such as reading the newspaper or watching television: Not at all Moving or speaking so slowly that other people could have noticed. Or the opposite - being so fidgety or restless that you have been moving around a lot more than usual: Not at all Thoughts that you would be better off , or of hurting yourself in some way: Not at all PEG Scale What number best describes your pain on average in the past week?: 3 Safety Assessment Do you have throw rugs on the floor?: No Do you feel safe at your home?: Yes Do you feel unsteady when walking?: (!) Yes Are you having difficulty with driving?: No Do you have trouble seeing?: No Do you use a bath bar/seat?: No Do you use a raised toilet seat?: No Do you use a cane?: No Do you use a walker?: No Do you use a wheelchair?: No Hearing Assessment Do you strain or struggle to hear/understand conversations?: No Do you have trouble hearing the television or radio when others do not?: No Does your family ever voice concerns about your hearing?: No Do you wear hearing aid/s?: No Personal Health During the past 4 weeks, how would you rate your overall health?: Good Do you understand how to take all of your medications?: Yes How confident are you that you can control and manage most of your health problems?: Very confident In the past 12 months, how many times have you been hospitalized?: None End of Life Planning Do you have a living will?: Yes 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 Medicare annual wellness visit, subsequent Yes Screening for depression Health maintenance discussed. Depression screen was negative. At least 3 minute spent administering and discussing. Cognitive evaluation did not reveal any impairment. She has advanced directives in place. Return in about 1 year (around 10/10/2025). documented in this encounter [facility] 10-05-2024 History of Presen t illness Narrative Subjective Patient ID: Jamir Jones is a 74 y.o. female. Jamir Ricks presents today for a diabetes check. She states 2 weeks ago she presented to [place] ER for vertigo and nausea. She had multiple episodes, some where she felt she was spinning and others where the room was spinning. She reports vomiting during these as well. She felt relief from the medications that she received in the ER. Does not note any episodes since then. Jamir Ricks also reports leena horse episodes in her right leg that include tingling and burning pain when she is laying down. These episodes have occurred intermittently for the past few months. She states getting up and walking around and taking Tylenol helps the pain. Nothing makes the pain worse and no other symptoms are associated with it. She reports the pain as a 10/10 and that it radiates back and forth between her right knee and hip. Additionally, she reports crampy stomach pain that she thinks could be associated with her metformin or atorvastatin medications. Her metformin was recently increased from 1-2 and that is when it started. She did have problems in the past with metformin at higher doses and it seems similar to that. She has been seen in the ER for constipation prior and received an enema which improved her condition. She would like to further discuss these medications. She expresses concerns about fatigue that interferes with her daily functioning at home. She has to lie down on the couch to rest frequently throughout the day. She does not take naps. She sleeps 9-10 hours each night but reports getting up 3x each night to use the bathroom. She does not have trouble falling back to sleep after. She would like her ears checked for wax. The following portions of the patient's history were reviewed and updated as appropriate: allergies, current medications, past family history, past medical history, past social history, past surgical history, problem list, and medication reconciliation was completed including current medication and post discharge medication. Review of Systems Constitutional: Positive for fatigue. Negative for activity change. HENT: Negative for congestion, ear pain, sinus pain and sore throat. Respiratory: Negative for chest tightness and shortness of breath. Gastrointestinal: Positive for abdominal pain, constipation and nausea. Genitourinary: Negative for flank pain, hematuria and urgency. Musculoskeletal: Positive for myalgias (right leg). Neurological: Positive for dizziness. Negative for numbness. Objective Physical Exam Vitals reviewed. Exam conducted with a programs director present (Elton Jiang MS 3). Constitutional: General: She is not in acute distress. Appearance: She is not ill-appearing. HENT: Head: Normocephalic. Right Ear: Tympanic membrane, ear canal and external ear normal. Left Ear: Tympanic membrane, ear canal and external ear normal. Cardiovascular: Rate and Rhythm: Normal rate and regular rhythm. Heart sounds: Normal heart sounds. No murmur heard. No friction rub. No gallop. Pulmonary: Effort: Pulmonary effort is normal. Breath sounds: Normal breath sounds. No stridor. No wheezing, rhonchi or rales. Abdominal: General: Bowel sounds are normal. Palpations: Abdomen is soft. Tenderness: There is abdominal tenderness (right lower quadrant to light and deep palpation). There is no rebound. Negative signs include Rovsing's sign, McBurney's sign and psoas sign. Musculoskeletal: General: No tenderness. Cervical back: Neck supple. Skin: General: Skin is warm and dry. Neurological: General: No focal deficit present. Mental Status: She is alert. Psychiatric: Mood and Affect: Mood normal. Behavior: Behavior normal. Assessment/Plan Jamir Ricks was seen today for diabetes. Diagnoses and all orders for this visit: Type 2 diabetes mellitus without complication, without long-term current use of insulin ([facility]) - Reduce metformin to 1 tablet (500 mg) by mouth daily due to side effect of GI upset/abdominal pain I am going to cut back on her metformin to 1 a day again. We will check her A1c next time. Hyperlipidemia - Stop taking atorvastatin due to side effects of GI upset and myalgias. Check next visit Hypomagnesemia - magnesium oxide (MAGOX) 400 mg tablet; Take 1 tablet (400 mg total) by mouth in the morning. May be cause of Charley horses. Will add magnesium oxide 400 mg daily. Abdominal Pain - Colonoscopy scheduled for 10/24/[address] Dupree - Follow up in 6 weeks to discuss medication changes and colonoscopy results She had to cancel her colonoscopy and so we rescheduled it. Other orders - metFORMIN (GLUCOPHAGE) 500 mg tablet; Take 1 tablet (500 mg total) by mouth daily with breakfast. documented in this encounter [facility] 09-14-2024 Miscellaneous Notes Patient would like to go to [facility] for therapy for vertigo. ok documented in this encounter [facility] 09-14-2024 Telephone encounter Note Patient would like to go to [facility] for therapy for vertigo. [facility] 09-14-2024 Telephone encounter Note ok [facility] 09-11-2024 History of Presen t illness Narrative Subjective Patient ID: Jamir Jones is a 74 y.o. female. Jmair Ricks presents today for an ER follow-up. She went to put eyedrops in her eyes yesterday because of dry eyes and had a sudden onset of spinning. She went to the emergency room where they did testing which included a CT scan of her brain. She was diagnosed with vertigo and sent home with meclizine in Zofran for nausea. She has been taking the meclizine and it is helping. Nausea has been under pretty good control. She only used 1 Zofran pill with benefit. Her right ear seems full and was told that she had wax in it. Earache The following portions of the patient's history were reviewed and updated as appropriate: allergies, current medications, past family history, past medical history, past social history, past surgical history, problem list, and medication reconciliation was completed including current medication and post discharge medication. Review of Systems Constitutional: Negative. HENT: Positive for ear pain. Neurological: Positive for dizziness (spinning type). Objective Physical Exam Vitals reviewed. Exam conducted with a programs director present ( and Buddhism Pinto MS 3). Constitutional: General: She is not in acute distress. Appearance: She is not ill-appearing. HENT: Head: Normocephalic. Right Ear: There is impacted cerumen. Left Ear: Tympanic membrane, ear canal and external ear normal. Neurological: General: No focal deficit present. Mental Status: She is alert. Gait: Gait is intact. Assessment/Plan Jamir Ricks was seen today for earache. Diagnoses and all orders for this visit: Vertigo I suspect a benign positional paroxysmal vertigo. It is improved since yesterday. Use meclizine as needed. If no better then consider vestibular rehab. ER records and CT scan reviewed with patient. Impacted cerumen of right ear She did have cerumen in the right ear which was removed with ear lavage. Tympanic membrane was clear and intact. I do not believe that is related to the vertigo though. This was explained to the patient. documented in this encounter [facility] 07-06-2024 History of Presen t illness Narrative Subjective Patient ID: Jamir Jones is a 74 y.o. female. Jamir Ricks presents for a diabetic recheck. She is taking the metformin every morning and then she checks her blood sugar later in the day and if it is high then she will take another 1. She seems to be tolerating it well. She has noticed that when she takes the atorvastatin for a prolonged period of time that she starts having abdominal pain so she has been taking that 1 week on and then 1 week off and has been doing okay from that standpoint on that regimen. She has no new problems to report today. She believes she is due for a colonoscopy. She is not having any symptoms except for intermittent abdominal discomfort as described above. Her neck is feeling better. She did 3 sessions of physical therapy and the home exercises. She has also been seeing the chiropractor when it flares up and using a neck brace for traction in all that seems to help. She does not want any further treatment such as pain management at this time. She said she got a flu shot last month and also had a tetanus booster when she was in the emergency room last year for head injury. She also had [employer] wellness visit yesterday. They put a heart monitor on it looks like. She also was given Hemoccult stool tests. The following portions of the patient's history were reviewed and updated as appropriate: allergies, current medications, past family history, past medical history, past social history, past surgical history, problem list, and medication reconciliation was completed including current medication and post discharge medication. Review of Systems Constitutional: Negative. Eyes: Negative. Respiratory: Negative. Cardiovascular: Negative. Gastrointestinal: Positive for abdominal pain (occasionally). Musculoskeletal: Positive for neck pain (Improved). Psychiatric/Behavioral: Negative. Objective Physical Exam Vitals reviewed. Constitutional: General: She is not in acute distress. Appearance: Normal appearance. She is not ill-appearing. Eyes: Extraocular Movements: Extraocular movements intact. Conjunctiva/sclera: Conjunctivae normal. Neck: Thyroid: No thyroid tenderness. Vascular: No carotid bruit. Cardiovascular: Rate and Rhythm: Normal rate and regular rhythm. Pulses: Normal pulses. Dorsalis pedis pulses are 2+ on the right side and 2+ on the left side. Posterior tibial pulses are 2+ on the right side and 2+ on the left side. Heart sounds: Normal heart sounds. No murmur heard. Pulmonary: Effort: Pulmonary effort is normal. No respiratory distress. Breath sounds: Normal breath sounds. No wheezing, rhonchi or rales. Abdominal: General: Bowel sounds are normal. Palpations: Abdomen is soft. Tenderness: There is no abdominal tenderness. Musculoskeletal: Cervical back: Neck supple. Right lower leg: No edema. Left lower leg: No edema. Right foot: No deformity. Left foot: No deformity. Feet: Right foot: Protective Sensation: 10 sites tested. 10 sites sensed. Skin integrity: Skin integrity normal. Toenail Condition: Right toenails are normal. Left foot: Protective Sensation: 10 sites tested. 10 sites sensed. Skin integrity: Skin integrity normal. Toenail Condition: Left toenails are normal. Lymphadenopathy: Cervical: No cervical adenopathy. Neurological: General: No focal deficit present. Mental Status: She is alert and oriented to person, place, and time. Cranial Nerves: Cranial nerves 2-12 are intact. Gait: Gait is intact. Psychiatric: Attention and Perception: Attention normal. Mood and Affect: Mood and affect normal. Speech: Speech normal. Behavior: Behavior normal. Behavior is cooperative. Thought Content: Thought content normal. Cognition and Memory: Cognition normal. Judgment: Judgment normal. Assessment/Plan Jamir Ricks was seen today for diabetes. Diagnoses and all orders for this visit: Benign essential hypertension - Comprehensive metabolic panel; Future Blood pressure at goal. Check CMP. Continue current regimen Type 2 diabetes mellitus without complication, without long-term current use of insulin ([facility]) - Hemoglobin A1c; Future Check A1c. Hyperlipidemia, unspecified hyperlipidemia type - Lipid profile; Future Check lipid panel Special screening for malignant neoplasm of colon - Colonoscopy; Future We discussed screening for colon cancer. Her mom did of an abdominal cancer of unknown type. Could have been colon cancer but not sure. It has been 9 years since her last colonoscopy. She would prefer to have the colonoscopy done. We will arrange this. documented in this encounter [facility] 06-02-2024 History of Presen t illness Narrative Subjective Patient ID: Jamir Jones is a 74 y.o. female. Jamir Ricks presents today for an itchy right ear. She states that her eyes are also itchy. She said the day that she made the appointment it was really bad but today it is gone. She did use a Q-tip and that seemed to have helped. She wonders what It is and what she can do for it. Otherwise she is going to the chiropractor and her neck and back feel much better. She is sleeping better. She stopped going to physical therapy because she is feeling better. The following portions of the patient's history were reviewed and updated as appropriate: allergies, current medications, past family history, past medical history, past social history, past surgical history, problem list, and medication reconciliation was completed including current medication and post discharge medication. Review of Systems Constitutional: Negative. Eyes: Positive for itching. Objective Physical Exam Vitals reviewed. Exam conducted with a programs director present (Aliyah Betancourt MS 3). Constitutional: General: She is not in acute distress. Appearance: Normal appearance. HENT: Head: Normocephalic. Right Ear: Tympanic membrane normal. Left Ear: Tympanic membrane, ear canal and external ear normal. Ears: Comments: Moderate cerumenosis right EAC blocking upper 1/2 Nose: No congestion or rhinorrhea. Right Turbinates: Pale. Left Turbinates: Pale. Mouth/Throat: Lips: [place]. Mouth: Mucous membranes are moist. Dentition: Normal dentition. Tongue: No lesions. Pharynx: Oropharynx is clear. Uvula midline. No pharyngeal swelling. Eyes: General: Lids are normal. Allergic shiner present. Extraocular Movements: Extraocular movements intact. Conjunctiva/sclera: Conjunctivae normal. Comments: Lower eyelids puffy Lymphadenopathy: Cervical: No cervical adenopathy. Neurological: General: No focal deficit present. Mental Status: She is alert. Gait: Gait is intact. Psychiatric: Attention and Perception: Attention normal. Mood and Affect: Mood and affect normal. Speech: Speech normal. Behavior: Behavior normal. Behavior is cooperative. Thought Content: Thought content normal. Cognition and Memory: Cognition normal. Judgment: Judgment normal. Assessment/Plan Jamir Ricks was seen today for itchy ear. Diagnoses and all orders for this visit: Allergy, initial encounter She has some symptoms of allergy so we will prescribe loratadine to take once a day as needed for itchy eyes or itchy ears. Excessive cerumen in right ear canal Excess cerumen in the ear could be causing itchiness as well. I recommend Debrox ear drops. Avoid Q-tips. It is not bad enough that it needs flushed out. Other orders - loratadine (CLARITIN) 10 mg tablet; Take 1 tablet (10 mg total) by mouth daily as needed for allergies. Her neck and back are feeling better with chiropractic treatment. She did stop physical therapy. Continue current regimen. [facility] Miscellaneous Notes Patient needs mammo sent to [facility] please documented in this encounter [facility] 05-09-2024 Telephone encounter Note Patient needs mammo sent to [facility] please [facility] 04-05-2024 Hospital Discharg e instructions Patient Education [...] include: ?8 oz (237 mL) of milk, xvnwdrw-qvwdbndgvnci-cthla milk, and calcium-fortifiedfruit juice. Calcium-fortified means that [...] ?Spinach (cooked), rhubarb, beets, sweet potatoes, and Mosotho chard. ?Peanuts. ?Potato chips, luxembourgish fries, and baked potatoes with skin on. ?Nuts and nut products. ?Chocolate. If you regularly take a diuretic medicine, make sure to eat at least 1 or 2 servings of fruits or vegetables that are high in potassium each day. These include: ?Avocado. ?Banana. ?Clay, prune, carrot, or tomato juice. ?Baked potato. [...] magnesium, fish oil, or vitamin B6. Take bfsf-nba-oxdwluv and prescription medicines only as told by [...] Casseroles. Pizza. Lasagna. Frozen meals. Potato chips. Spanish fries. The items listed above may not [...] provider. Document Revised: 08/20/2022 Document Reviewed: 08/20/2022 [employer] Patient Education 2023 [employer] (V3D). Follow Up Care 12/15/2023 09:43:06 With:Ashok LAWTON, ALVIN Siddiqi, URO Address: When: Unknown [facility] 04-05-2024 Note Patient Education Nephrology Dietary Guidelines [...] ? 8 oz (237 mL) of milk, lglqudi-jenmsnxhesam-jsxoh milk, and calcium-fortifiedfruit juice. Calcium-fortified means that [...] Spinach (cooked), rhubarb, beets, sweet potatoes, and Mosotho chard. ? Peanuts. ? Potato chips, luxembourgish fries, and baked potatoes with skin on. ? Nuts and nut products. ? Chocolate. ??? If you regularly take a diuretic medicine, make sure to eat at least 1 or 2 servings of fruits or vegetables that are high in potassium each day. These include: ? Avocado. ? Banana. ? Clay, prune, carrot, or tomato juice. ? Baked [...] fish oil, or vitamin B6. ??? Take lqhh-jyd-gahgupp and prescription medicines only as told by your health (more content not included)... [facility] 06-09-2023 Evaluation note Encounter Date Diagnosis Assessment Notes May, Type 2 diabetes mellitus with hyperglycemia, without long-term current use of insulin (ICD-10 - E11.65) A1C increased - dose of metformin increased. Watch sweets, stay hydrated. May, Essential (primary) hypertension (ICD-10 - I10) BP stable today. DASH diet and good hydration May, Chronic fatigue (ICD-10 - R53.82) assess for iron deficiency and hypothyroidism [facility] Other 01-15-2024 Evaluation note* Encounter Date Diagnosis Assessment Notes Treatment Notes Treatment Clinical Notes May, Type 2 diabetes mellitus with hyperglycemia, without long-term current use of insulin (ICD-10 - E11.65) [facility] Other 01-09-2024 Evaluation note* Encounter Date Diagnosis Assessment Notes Treatment Notes Treatment Clinical Notes May, Essential (primary) hypertension (ICD-10 - I10) [facility] Other 11-21-2023 Evaluation note* Encounter Date Diagnosis Assessment Notes Treatment Notes Treatment Clinical Notes Mar, Lumbar back pain with radiculopathy affecting right lower extremity (ICD-10 - M54.16) Discussed holding atorvastatin to help with muscle pain. Pt agrees to referral to Pain Mgmt. Has had benign xrays of back and hip, per her report. [facility] Other 10-18-2023 Evaluation note* Encounter Date Diagnosis Assessment Notes Treatment Notes Treatment Clinical Notes Feb, Recurrent occipital headache (ICD-10 - R51.9) [facility] Other 10-09-2023 Evaluation note* Encounter Date Diagnosis Assessment Notes Treatment Notes Treatment Clinical Notes Feb, Essential (primary) hypertension (ICD-10 - I10) [facility] 09-26-2023 Evaluation note* Encounter Date Diagnosis [...] worsened since starting eliquis. Orders faxed to [facility]. [facility] Other 09-14-2023 Evaluation note* Encounter Date Diagnosis Assessment Notes Treatment Notes Treatment Clinical Notes Jan, Acute deep vein thrombosis (DVT) of calf muscle vein of right lower extremity (ICD-10 - I82.461) Wrote out instructions and gave samples of eliquis. Has appt later this week w vascular in [place]. Pt expresses understanding of the seriousness of this problem and will follow up w vascular and attribute to their treatment plan for DVT. [facility] Other 09-07-2023 Evaluation note* Encounter Date Diagnosis Assessment Notes Treatment Notes Treatment Clinical Notes Jan, Cervical pain (neck) (ICD-10 - M54.2) Printed order for PT. continue NSAIDs and heat therapy. Suspect her headaches are due to cervical problems. Jan, Varicose veins of both lower extremities with pain (ICD-10 - I83.813) Pt agrees to referral to vascular surgery for her prominent painful varicose veins. [facility] Other 07-28-2023 Evaluation note* Encounter Date Diagnosis Assessment Notes Treatment Notes Treatment Clinical Notes Nov, Type 2 diabetes mellitus with hyperglycemia, without long-term current use of insulin (ICD-10 - E11.65) [facility] Other 07-19-2023 Hospital Discharge instructions Follow Up Care 12/09/2022 15:14:32 With:Ashok LAWTON, ALVIN Siddiqi, URO Address: When: Unknown Comments:6 mos w/YAMILKA [facility] 05-03-2023 Evaluation note* Encounter Date Diagnosis Assessment Notes Treatment Notes Treatment Clinical Notes September, Abnormal mammogram of right breast (ICD-10 - R92.8) [facility] Other 04-18-2023 Evaluation note* Encounter Date Diagnosis Assessment Notes Treatment Notes Treatment Clinical Notes Aug, Vaginal yeast infection (ICD-10 - B37.31) Complete med and call if symptoms continue Aug, Screening mammogram for breast cancer (ICD-10 - Z12.31) [facility] Other 04-06-2023 Evaluation note* Encounter Date Diagnosis [...] - I10) Chronic problem - requests refill. [facility] Other 03-22-2023 NotePROCEDURE: XR HIP RT 2 3V W PELVIS HISTORY: Pain in right leg ; low back pain COMPARISON: None. FINDINGS: BONES:No fracture, acute abnormality, or significant arthropathy. SOFT TISSUES:No visible soft tissue swelling. EFFUSION:None visible. OTHER: Negative. IMPRESSION: 1. No acute bone abnormality or significant degenerative changes of the hip joints. Electronically authenticated by: KYLIE MENON Date: 2022-08-12 09:35[facility]03-20-2023 Evaluation note* Encounter Date Diagnosis Assessment [...] levels and will check later this week [facility] Other 07-06-2022 Hospital Discharge instructions Patient Education [...] Follow these instructions at home: Medicines Take qlws-vdd-yrnxzeh and prescription medicines only as told by [...] or the blood stops without treatment. Take rpai-pbi-axjdibu and prescription medicines only as told by your health care provider. Drink enough fluid to keep your urine clear or pale yellow. This information is not intended to replace advice given to you by your health care provider. Make sure you discuss any questions you have with your health care provider. Document Released: 05/10/2006 Document Revised: 10/04/2019 Document Reviewed: 06/12/2017 [employer] Patient Education 2020 [employer] (V3D). Follow Up Care 11/18/2021 15:11:49 With:Norma Pulido MD, URL, URO Address: When:1 year Comments:Renal US [facility] evaluation + Plan note Future Appointments Appointment Date:12/02/2022 08:00:00 AM Scheduled Provider:Norma Pulido MD Location:[facility] Appointment Type:URO Office Visit [facility] evaluation + Plan note Future Appointments Appointment Date:12/15/2023 09:00:00 AM Scheduled Provider:Norma Pulido MD Location:[facility] Appointment Type:URO Office Visit Diagnostic Tests Pending * [facility] Appointment Date:03/22/2024 10:45:00 AM Scheduled Provider:Norma Pulido MD Location:[facility] Appointment Type:URO Office Visit [facility] evaluation + Plan note Future Appointments Appointment Date:03/22/2024 10:45:00 AM Scheduled Provider:Norma Pulido MD Location:[facility] Appointment Type:URO Office Visit Diagnostic Tests Pending * Urine Culture 12/15/23 [facility] Evalulqinu noteNo deviantARTDulce [employer] Other Evaluation note* Diagnosis Allergy, initial encounter- Primary Excessive cerumen in right ear canal [facility] Diagnosis Benign essential hypertension- Primary Essential hypertension, benign Type 2 diabetes mellitus without complication, without long-term current use of insulin ([facility]) Hyperlipidemia, unspecified hyperlipidemia type Special screening for malignant neoplasm of colon Special screening for malignant neoplasms, colon documented [facility] Diagnosis Vertigo- Primary Dizziness and giddiness Impacted cerumen of right ear Impacted cerumen Screen for colon cancer Special screening for malignant neoplasms, colon documented in this encounter [facility]* Diagnosis Vertigo- Primary Dizziness and giddiness Screen for colon cancer Special screening for malignant neoplasms, colon documented in this encounter [facility]* Diagnosis Type 2 diabetes mellitus without complication, without long-term current use of insulin ([facility])- Primary Benign essential hypertension Essential hypertension, benign Hypomagnesemia Disorders of magnesium metabolism Myalgia Unspecified myalgia and myositis Colon cancer screening- Primary Special screening for malignant neoplasms, colon Colon cancer screening Special screening for malignant neoplasms, colon documented in this encounter [facility]* Diagnosis Colon cancer screening- Primary Special screening for malignant neoplasms, colon Medicare annual wellness visit, subsequent- Primary Screening for depression Colon cancer screening Special screening for malignant neoplasms, colon documented in this encounter [facility]* Diagnosis Type 2 diabetes mellitus with diabetic nephropathy, without long-term current use of insulin (CMS-HCC)- Primary Excessive cerumen in right ear canal Hypomagnesemia Disorders of magnesium metabolism Hypokalemia Hypopotassemia Type 2 diabetes mellitus without complication, without long-term current use of insulin (CMS-HCC) Overweight [facility] - [facility]* Type Description Date Medical History Hyperlipidemia Medical History Diabetes Medical History Hypertension Surgical History Hysterectomy 1987 [employer] [facility] [employer] Other History general Narrative - Reported* Type Description Date Medical History Hyperlipidemia Medical History Diabetes Medical History Hypertension Surgical History Hysterectomy 1987 Hospitalization History SEE SURGICAL HX [facility] [employer] Other Hospital course Narrative No data available for this section [facility] Hospital Discharge instructions No data available for this section [facility] filed[facility]ed in this encounter [facility] [...] available for this section [facility] Summary Purpose Family History No Family History [...] affecting right lower extremity (M54.16) Referral Organization [facility] Referring Provider First Name Gino Referring Provider Last Name Carrasquillo Referring Provider [facility] Referred Organization [facility] Referred Address [address] [place], [place],[address] Referred Provider Specialty Pain Medicin e Referral Priority Routine Reason [facility] [place] [facility]? Last 2 OV, had xray and MRI. 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 (I83.813) Referral Organization [facility] Referring Provider First Name Gino Referring Provider Last Name Neida Referring Provider [facility] Referred Organization [facility] Referred Provider Betty Matos Referred Address [address] [facility],[place],[address] Referred Provider Specialty V[facility] Tena rj Referral Priority Routine General Notes Giselle Levy 11:48:16 AM >received today, attachments made, waiting for notes to be locked Giselle Levy 02/02/2023 09:22:14 AM >SENT TE TO LOCK NOTES Clinical Notes P: [id number] F: [id number] Additional Source Comments Care Team (unrecognized sect ion and content) Theatrical Scenic Designer Relationship Specialty Start Date End Date Joaquin Devine DO [address], [place] [address] PCP - General Family Medicine 07/06/23 Theatrical Scenic Designer Relationship Specialty Start Date End Date Joaquin Devine DO [address], [facility] [place] [address] PCP - General Family Medicine 07/06/23 Theatrical Scenic Designer Relationship Specialty Start Date End Date Joaquin Devine DO [address] [place] [address] PCP - General Family Medicine 07/06/23 Theatrical Scenic Designer Relationship Specialty Start Date End Date Joaquin Devine DO [address] [place] [address] PCP - General Family Medicine 07/06/23 Theatrical Scenic Designer Relationship Specialty Start Date End Date TraemindyJoaquin chung DO [address] [place] [address] PCP - General Family Medicine 07/06/23 Theatrical Scenic Designer Relationship Specialty Start Date End Date TraefelipaJoaquin DO [address] [place] [address] PCP - General Family Medicine 07/06/23 Theatrical Scenic Designer Relationship Specialty Start Date End Date Joaquin Devine DO [address] [place] [address] PCP - General Family Medicine 07/06/23 Theatrical Scenic Designer Relationship Specialty Start Date End Date TraemindyJoaquin chung DO [address] [place] [address] PCP - General Family Medicine 07/06/23 Theatrical Scenic Designer Relationship Specialty Start Date End Date TraemindyJoaquin chung [address] [place] [address] PCP - General Family Medicine 07/06/23 Theatrical Scenic Designer Relationship Specialty Start Date End Date Joaquin Devine DO [address], [place] [address] PCP - General Family Medicine 07/06/23 Theatrical Scenic Designer Relationship Specialty Start Date End Date Joaquin Devine DO [address] [place] [address] PCP - General Family Medicine 07/06/23 Theatrical Scenic Designer Relationship Specialty Start Date End Date Joaquin Devine DO [address] [place] [address] PCP - General Family Medicine 07/06/23 INFORMATION SOURCE (unrecogn ized section and content) DATE CREATED AUTHOR 11/27/2021 [facility] DATE CREATED AUTHOR AUTHOR'S ORGANIZ ATION 10/06/2022 [facility] DATE CREATED AUTHOR AUTHOR'S ORGANIZ ATION 06/02/2023 [facility] DATE CREATED AUTHOR AUTHOR'S ORGANIZ ATION 07/09/2024 [facility] DATE CREATED AUTHOR AUTHOR'S ORGANIZ ATION 08/30/2024 [facility] DATE CREATED AUTHOR AUTHOR'S ORGANIZ ATION 10/03/2024 [facility] DATE CREATED AUTHOR AUTHOR'S ORGANIZ ATION 11/22/2024 [facility] DATE CREATED AUTHOR AUTHOR'S ORGANIZ ATION 01/13/2025 [facility] REASON FOR VISIT (unrecogniz ed section and content) Reason Comments Med Refill Reason Comments itchy ear Reason Comments Diabetes Reason Comments Earache Reason Comments Diabetes Reason Comments maw Reason Comments 6 week f/u FOR RECORDS PERTAINING TO PATIENTS WHO ARE [...] BE BASED ON THE PRIMARY CLINICAL RECORDS. [facility]. provides no warranty or guarantee of the accuracy or completeness of information in this document.
[2025-01-29] MEDS: DIAZEPAM 10 MG/2 ML SYRINGE 2.5 MG IV (11:42)
[2025-01-29 11:47] LABS: Hematocrit 37.5 % (36.0-48.0); Hemoglobin 13.3 g/dL (12.0-16.0); Immature Granulocytes Abs Auto 0.02 10^3/uL (0.00-0.03); Immature Granulocytes Pct Auto 0.3 % (0.0-0.5); Lymphocytes Absolute Auto 1.3 10^3/uL (1.2-3.8); Mean Corpuscular HGB Conc 35.5 g/dL (29.9-35.2); Mean Corpuscular Hemoglobin 29.8 pg (26.7-34.0); Mean Corpuscular Volume 84.1 fL (81.0-99.0); Platelet Count 184 10^3/uL (150-450); Red Blood Count 4.46 10^6/uL (4.20-5.40); White Blood Count 5.8 10^3/uL (4.0-11.0)
[2025-01-29 11:49] LABS: Glucose Urine UA NEGATIVE (NEGATIVE)
[2025-01-29 11:54] LABS: Anion Gap 13.2; Blood Urea Nitrogen 10.0 mg/dL (7.0-18.0); Calcium 9.0 mg/dL (8.5-10.1); Carbon Dioxide 28.2 mmol/L (21.0-32.0); Chloride 102 mmol/L (98-107); Estimated GFR (African America >60 (>=60 mL/min/1.73m^2); Estimated GFR (Non-African Ame >60 (>=60 mL/min/1.73m^2); Glucose 202 mg/dL (74-106); Potassium 3.4 mmol/L (3.5-5.1); Sodium 140 mmol/L (136-145)
[2025-01-29 12:06] LABS: Cast Seen? NONE SEEN #/LPF (NONE SEEN); Crystals Seen? None Seen #/HPF (None Seen); Urine Culture Indicated NO
[2025-01-29 12:55] VITALS: PULSE 84; O2SAT 99
== END 2025-01-29 12:58 | disposition home or self-care (01) ==
PROVIDERS: Emergency Provider Emergency Medicine; PCP Family Medicine
DX: R42 Dizziness and giddiness (principal)
CPT/HCPCS: 36415; 70450; 80048; 81001; 85025; 93005; 96374; 99285; J3360

== ENCOUNTER 2025-02-20 15:17 | Outpatient (OUT) | payer MEDICARE, SELFPAY ==
--- OUTSIDE RECORDS SUMMARY | 2024-08-23 10:15 | XMS_ITS ---
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 Role Phone Raffy Patricia Unavailable [phone] Sanjay Oliver Unavailable [phone] REASON FOR VISIT Prophy (A) 74 Social History Sex Assigned At : Social History Observation Description Sex Assigned At Female Encounters Encounter Location Date Provider Diagnosis [facility] [address] [place], [place] [id number] 08/23/2024 Sanjay Oliver Plan Of Treatment Next Appt Details Provider Name:Sanjay Oliver , 07/05/2025 12:45:00 PM, [address] [place], [place], [phone], Progress Notes * Jamir JONESDOB:[birth year] (75 yo F)Acc No.[id number]:08/23/2024 Patient: Jamir HERNANDEZ Provider: Thania Oliver DDS :1950 A ge:74 Y S ex:Female Date:08/23/2024 Address[place] [place] [place], [id number] Subjective: * Chief Complaints: * 1 . Prophy (A) 74. * Medical History: Objective: * Vitals: Assessment: Plan: * Treatment: * Billing Information: * Visit Code: * Procedure Codes: * Electronic signature of Humberto Oliver DDS on 02/20/2025 at 03:19 PM EDT Sign off status: Pending * Provider: Thania Oliver DDS Date: 0 08/23/2024 Generated for Jenifer chung/Saravanan/Tana on: 0 02/20/2025 03:19 PM EDT
--- OUTSIDE RECORDS SUMMARY | 2024-11-15 11:00 | XMS_ITS ---
Author Organization [facility] vices Address [address] [place], [place] [id number] Care Team Providers Care Sectionizer Name Role Phone Patricia Akbar Unavailable [phone] Sanjay Oliver Unavailable [phone] REASON FOR VISIT Recall () Social History Sex Assigned At : Social History Observation Description Sex Assigned At Female Encounters Encounter Location Date Provider Diagnosis [facility] [address], [place] [id number] 11/15/2024 Sanjay Oliver Plan Of Treatment Next Appt Details Provider Name:Sanjay Oliver , 07/05/2025 12:45:00 PM, [address] [place], [place], [phone], Progress Notes * aJmir JONESDOB:[birth year] (75 yo F)Acc No.[id number]:11/15/2024 Patient: Jamir HERNANDEZ Provider: Thania Oliver DDS :1950 A ge:74 Y S ex:Female Date:11/15/2024 [address] [place] [place], [id number] Subjective: * Chief Complaints: * 1 . Recall (). * Medical History: Objective: * Vitals: Assessment: Plan: * Treatment: * Billing Information: * Visit Code: * Procedure Codes: * Electronic signature of Humberto Oliver DDS on 02/20/2025 at 03:19 PM EDT Sign off status: Pending * Provider: Thania Oliver DDS Date: 0 11/15/2024 Generated for Jeinfer chung/Saravanan/Tana on: 0 02/20/2025 03:19 PM EDT
--- OUTSIDE RECORDS SUMMARY | 2025-02-20 15:19 | XMS_ITS | Encounter Summary ---
Author Organization [employer] tem Address [id number] [address] [place] [address] Care Team Providers Care Metal Tank Erector Name Role Phone Joaquin Devine DO Primary Care Provider + [phone] Reason for Visit * Auth/Cert Specialty Diagnoses / Procedures Referred By Contac t Referred To Contact Procedures AK COLONOSCOPY FLX DX W/COLLJ SPEC WHEN PFRMD COLONOSCOPY DIAGNOSTIC / SCREENING Chong Cueva, [address] [place] [address] Phone: tel: fax: Referral ID Status Reason Start Date Expiration Date Visits Re quested Visits Authorized [id number] 1 1 Encounter Details Date Type Department Care Team (Late st Contact Info) Description 09/27/2024 Hospital Encounter [facility] [address] [place] [id number] Chong Cueva, DO [address] [place] [address] Colon cancer screening (Primary Dx) Social History Tobacco Use Types Packs/Day Years Used Date Smoking Tobacco: Never Smokeless Tobacco: Never Alcohol Use Standard Drinks/Week Comments Not Currently 0 (1 standard drink = 0.6 oz pur e alcohol) [facility] Utilities Answer Date Recorded In the past 12 months has [employer], gas, oil, or water company threatened to shut off services in your home? No 10/07/2023 Social Connection and Isolat ion Panel [NHANES] Answer Date Recorded In a typical week, how many times do you talk on the phone with family, friends, or neighbors? More than three times a week 10/07/2023 How often do you get togethe r with friends or relatives? More than three times a week 10/07/2023 How often do you attend chur or adventism services? More than 4 times per year 10/07/2023 Do you belong to any clubs o r organizations such as episcopalian groups, unions, fraternal or athletic groups, or school groups? No 10/07/2023 How often do you attend meet ings of the clubs or organizations you belong to? Never 10/07/2023 Are you , , di vorced, , never , or living with a partner? 10/07/2023 AUDIT-C Answer Date Recorded Q1: How often do you have a drink containing alcohol? Monthly or less 10/07/2023 Q2: How many drinks containi ng alcohol do you have on a typical day when you are drinking? Patient does not drink Q3: How often do you have si x or more drinks on one occasion? Never 10/07/2023 Overall Financial Resource Strain (CARDIA) Answe r Date Recorded How hard is it for you to pa y for the very basics like food, housing, medical care, and heating? Not hard at all 10/07/2023 PHQ-2 Answer Date Recorded Total Score 0 11/20/2024 [facility] - Occupational Stress Questionnaire Answer Date Recorded Do you feel stress - tense, restless, nervous, or anxious, or unable to sleep at night because your mind is troubled all the time - these days? Not at all 10/07/2023 Exercise Vital Sign Answer Date Recorde d On average, how many days pe r week do you engage in moderate to strenuous exercise (like a brisk walk)? 5 days 10/07/2023 On average, how many minutes do you engage in exercise at this level? 30 min 10/07/2023 PRAPARE - Transportation Answer Date Re corded In the past 12 months, has l ack of transportation kept you from medical appointments or from getting medications? No 09/21 In the past 12 months, has l ack of transportation kept you from meetings, work, or from getting things needed for daily living? No 10/07/2023 Housing Instability Answer Date Recorde d Are you worried or concerned that in the next two months you may not have stable housing that you own, rent or stay in as a part of a household? No 10/07/2023 Childcare Answer Date Recorded Do problems getting child ca re make it difficult for you to work or study? No 10/07/2023 Employment Answer Date Recorded Do you need help finding a [facility] career center and/or a training program? No 10/07/2023 Hunger Screening Answer Date Recorded Within the past 12 months we worried whether our food would run out before we got money to buy more. Never True 01/11/2025 Within the past 12 months th e food we bought just didn't last and we didn't have money to get more. Never True 01/11/2025 Purpose - Life Answer Date Recorded I have a purpose and direction in my life. Agree 10/07/2023 Comments No Sex and Gender Information Value Date Recorded Sex Assigned at Not on file Legal Sex Female 11:27 AM EDT Gender Identity Not on file Sexual Orientation Not on file documented as of this encounter H&P Notes * Chong Cueva, DO - 09/17/2024 8:51 PM EDT Pre-Procedural Diagnosis: Colon cancer screening Indications: same Procedure Planned: Colonoscopy History Obtained From: patient HISTORY OF PRESENT ILLNESS: The patient is a 74 y.o. female who presents for the above procedure. Past Medical History: Past Medical History: Diagnosis Date Anxiety Diabetes mellitus type 2, controlled ([facility]) Hyperlipidemia Osteoporosis Past Surgical History: Past Surgical History: Procedure Laterality Date EYE SURGERY Left 06/30/2022 Cataract HYSTERECTOMY 1985 Medications: No current facility-administered medications for this encounter. Current Outpatient Medications Medication Sig Dispense Refill amLODIPine (NORVASC) 5 mg tablet Take 1 tablet (5 mg total) by mouth in the morning. 90 tablet 1 aspirin 81 mg Take 1 tablet (81 mg total) by mouth in the morning. atorvastatin (LIPITOR) 10 mg tablet TAKE 1 TABLET BY MOUTH IN THE MORNING 30 tablet 5 blood-glucose meter (ONETOUCH VERIO FLEX METER) misc 1 Unit by miscellaneous route in the morning. 1 each 0 calcium carbonate-vitamin D3 (CALTRATE) 600 mg(1,500mg) -400 units per tablet Take 1 tablet by mouth in the morning. lancets (sougoutouch ultrasoft) misc Inject 1 Lancet under the skin in the morning. E11.9. 100 each 3 loratadine (CLARITIN) 10 mg tablet Take 1 tablet (10 mg total) by mouth daily as needed for allergies. 30 tablet 1 meclizine (ANTIVERT) 25 mg tablet Take 1 tablet (25 mg total) by mouth 3 (three) times a day as needed for dizziness. 20 tablet 0 metFORMIN (GLUCOPHAGE) 500 mg tablet TAKE 1 TABLET BY MOUTH IN THE MORNING AND 1 IN THE EVENING WITH MEALS 180 tablet 0 ondansetron (ZOFRAN) 4 mg tablet Take 1 tablet (4 mg total) by mouth every 8 (eight) hours as needed for nausea or vomiting for up to 12 doses. 12 tablet 0 ONETOUCH DELICA PLUS LANCET 30 gauge misc USE 1 LANCET TO CHECK GLUCOSE IN THE MORNING ONETOUCH VERIO TEST STRIPS strip 1 strip by other route as needed for high blood sugar. 100 strip 3 Allergies: Allergies Allergen Reactions Sulfamethoxazole-Trimethoprim Other (See Comments) Amoxicillin Rash Cefdinir Rash and Hives Lisinopril Cough Problems with Sedation/Anesthesia in the past? no REVIEW OF SYSTEMS: 12 point review of systems negative other than mentioned above. PHYSICAL EXAM: Vitals: There were no vitals taken for this visit. Focused Exam related to procedure: General appearance: NAD, conversant Lungs: CTA, with normal respiratory effort and no intercostal retractions CV: RRR, no MRGs Abdomen: Soft, non-tender; no masses or HSM ASA ([employer]esthes[employer]) Anesthesia Status: Class I Soft palate, fauces, uvula, pillars ASA Physical Status Classification: ASA 2 - Patient with mild systemic disease with no functional limitations ASSESSMENT AND PLAN: 1. Patient is a 74 y.o. female with above specified procedure planned. Expected Sedation/Anesthesia Type: Moderate Sedation 2. Procedure options, risks and benefits reviewed with Patient. Patient expresses understanding. 3. Consent has been signed: Yes documented in this encounter Miscellaneous Notes * Pre-Procedure Note - Chong Cueva DO - 09/17/2024 8:47 PM EDT PRE-PROCEDURE ASSESSMENT NOTE: ASA CLASSIFICATION Patient's ASA classification is class II - a patient with mild systemic disease, controlled with current therapies. Assessment: Neurological alert Respiratory breath sounds present bilaterally Cardiac regular rate and rhythm Plan of Care Patient is appropriate candidate for moderate sedation Medications to be given fentanyl and midazolam documented in this encounter Plan of Treatment Upcoming Encounters Date Type Department Care Team (Late st Contact Info) Description 02/21/2025 8:30 AM EDT Office Visit [facility] [address] [place] [address] Joaquin Devine DO [address] [facility] [place] [address] 10/11/2025 4:00 PM EDT Office Visit [facility] [address] [place] [address] documented as of this encounter Visit Diagnoses Diagnosis Colon cancer screening- Primary Special screening for malignant neoplasms, colon documented in this encounter Administered Medications Active Administered Medications - up to 3 most recent administrations Medication Order MAR Action Action Date Dose Rate Site sodium chloride 0.9 % flush 3 mL 3 mL, intravenous, As needed, line care, before and after each intermittent use, Starting on 09/17/24 at 2055 documented in this encounter Additional Health Concerns Assessment Noted Time PHQ-9 Depression Total Score: 0 02/21/20 9:45 AM EDT A Body Mass Index follow-up plan has been documented for the patient 09/14/2023 3:11 PM EDT documented as of this encounter Care Teams Metal Tank Erector Relationship Specialty Start Date End Date Joaquin Devine DO [address] [facility] [place] [address] PCP - General Family Medicine 07/06/23 documented as of this encounter
--- OUTSIDE RECORDS SUMMARY | 2025-02-20 15:19 | XMS_ITS | Encounter Summary ---
Author Organization [facility] Address [id number] [address] [place] [address] Care Team Providers Care Jacquard Fixer Name Role Phone Nilson Joaquin Porter DO Primary Care Provider [phone] Encounter Details Date Type Department Care Team (Late st Contact Info) Description 09/17/2024 Orders Only [facility] [address] [place] [id number] Chong Cueva DO [address] [place] [address] Colon cancer screening (Primary Dx) Social History Tobacco Use Types Packs/Day Years Used Date Smoking Tobacco: Never Smokeless Tobacco: Never Alcohol Use Standard Drinks/Week Comments Not Currently 0 (1 standard drink = 0.6 oz pur e alcohol) [facility] Utilities Answer Date Recorded In the past 12 months has [employer], gas, oil, or water [employer] threatened to shut off services in your [...] 10/07/2023 How often do you attend chur ch or denominational services? More than 4 times per year 10/07/2023 Do you belong to any clubs o r organizations such as holiness groups, unions, fraternal or athletic groups, or [...] PHQ-2 Answer Date Recorded Total Score 0 02/21/2024 [facility] of Occupat ional Health - Occupational Stress Questionnaire Answer [...] Recorded Do you need help finding a [facility] career center and/or a training program? No 10/07/2023 Hunger Screening Answer Date Recorded Within the past 12 months we worried whether our food would run out before we got money to buy more. Never True 09/13/2024 Within the past 12 months th e food we bought just didn't last and we didn't have money to get more. Never True 09/13/2024 Purpose - Life Answer Date Recorded I have a purpose and direction in my life. Agree 10/07/2023 Comments No Sex and Gender Information Value Date Recorded Sex Assigned at Not on file Legal Sex Female 11:27 AM EDT Gender Identity Not on file Sexual Orientation Not on file documented as of this encounter Plan of Treatment Upcoming Encounters Date Type Department Care Team (Late st Contact Info) Description 02/21/2025 8:30 AM EDT Office Visit [facility] - Family [facility] [address] [place] [address] Joaquin Devine DO [address] [facility] [place] [address] 10/11/2025 4:00 PM EDT Office Visit [facility] [address] [place] [address] documented as of this encounter Visit Diagnoses Diagnosis Colon cancer screening- Primary Special screening for malignant neoplasms, colon documented in this encounter Additional Health Concerns Assessment Noted Time PHQ-9 Depression Total Score: 0 02/21/20 9:45 AM EDT A Body Mass Index follow-up plan has been documented for the patient 09/14/2023 3:11 PM EDT documented as of this encounter Care Teams Jacquard Fixer Relationship Specialty Start Date End Date Joaquin Devine DO [address] [facility] [place] [address] PCP - General Family Medicine 07/06/23 documented as of this encounter
--- OUTSIDE RECORDS SUMMARY | 2025-02-20 15:19 | XMS_ITS | Encounter Summary ---
Author Organization [employer] Address [id number] [address] [place] [address] Care Team Providers Care Park Guide Name Role Phone CheriJoaquin chung Primary Care Provider [phone] Encounter Details Date Type Department Care Team (Late st Contact Info) Description 09/22/2024 [facility]phone [facility] [address] [place] [phone] Marta Shi CMA Social History Tobacco Use Types Packs/Day Years Used Date Smoking Tobacco: Never Smokeless Tobacco: Never Alcohol Use Standard Drinks/Week Comments Not Currently 0 (1 standard drink = 0.6 oz pur e alcohol) [facility] Utilities Answer Date Recorded In the past 12 months has [employer], gas, oil, or water [employer] threatened to shut off services in your [...] often do you attend chur ch or sabianism services? More than 4 times per year 10/07/2023 Do you belong to any clubs o r organizations such as buddhism groups, unions, fraternal or athletic groups, or [...] Answer Date Recorded Total Score 0 02/21/2024 [facility] of Occupat ional Health - Occupational Stress [...] Recorded Do you need help finding a l ocal career center and/or a training program? No [...] on file documented as of this encounter Miscellaneous Notes * Telephone Encounter - Marta Shi CMA - 09/22/2024 9:34 AM EDT This patient called to let us know that she is cancelling her Colonoscopy for Wed because she has Vertigo. She will call us back to reschedule. * Telephone Encounter - Chong Cueva DO - 09/22/2024 9:34 AM EDT Message noted. Time to reschedule colonoscopy * Telephone Encounter - Marta Shi CMA - 09/22/2024 9:34 AM EDT Got this rescheduled documented in this encounter Plan of Treatment Upcoming Encounters Date Type Department Care Team (Late st Contact Info) Description 02/21/2025 8:30 AM EDT Office Visit [facility] - Family Medicine [address] [place] [address] Joaquin Devine, DO [address] [place] [address] 10/11/2025 4:00 PM EDT Office Visit [facility] - Family Medicine [address] [place] [address] documented as of this encounter Visit Diagnoses Not on filedocumented in this encounter Additional Health Concerns Assessment Noted Time PHQ-9 Depression Total Score: 0 02/21/20 9:45 AM EDT A Body Mass Index follow-up plan has been documented for the patient 09/14/2023 3:11 PM EDT documented as of this encounter Care Teams Park Guide Relationship Specialty Start Date End Date Joaquin Devine DO [address] [facility] [place] [address] PCP - General Family Medicine 07/06/23 documented as of this encounter
--- OUTSIDE RECORDS SUMMARY | 2025-02-20 15:19 | XMS_ITS | Encounter Summary ---
Author Organization [employer] Address [id number] [address] [place] [address] Care Team Providers Care Brick Mason Name Role Phone CheriJoaquin chung Charlotte VELASQUEZ Primary Care Provider [phone] Encounter Details Date Type Department Care Team (Late st Contact Info) Description 10/23/2024 [facility]phone [facility] - [facility] Medicine [address] [place] [phone] Werner Gamez CMA Social History Tobacco Use Types Packs/Day Years Used Date Smoking Tobacco: Never Smokeless Tobacco: Never Alcohol Use Standard Drinks/Week Comments Not Currently 0 (1 standard drink = 0.6 oz pur e alcohol) [facility] Utilities Answer Date Recorded In the past 12 months has [employer], gas, oil, or water [employer] threatened to shut off services in your [...] often do you attend chur ch or jainism services? More than 4 times per year 10/07/2023 Do you belong to any clubs o r organizations such as restorationist groups, unions, fraternal or athletic groups, or [...] PHQ-2 Answer Date Recorded Total Score 0 10/10/2024 [facility] [place] of Occupat ional Health - Occupational Stress [...] got money to buy more. Never True 10/10/2024 Within the past 12 months th e food we bought just didn't last and we didn't have money to get more. Never True 10/10/2024 Purpose - Life Answer Date Recorded I have a purpose and direction in my life. Agree 10/07/2023 Comments No Sex and Gender Information Value Date Recorded Sex Assigned at Not on file Legal Sex Female 11:27 AM EDT Gender Identity Not on file Sexual Orientation Not on file documented as of this encounter Miscellaneous Notes * Telephone Encounter - Werner Gamez CMA - 10/23/2024 4:48 PM EDT Pt called states she needs to cancel her Colonoscopy. Due to not understanding instructions. I called [employer] and left message. Also called centralized scheduling. * Telephone Encounter - Chong Cueva DO - 10/23/2024 4:48 PM EDT Message noted. We can schedule her for an appointment specifically to go over the instructions. We can even pull up the I-pad editorial intern if needed * Telephone Encounter - Werner Gamez CMA - 10/23/2024 4:48 PM EDT I booked her for a Nurse visit on November 10. documented in this encounter Plan of Treatment Upcoming Encounters Date Type Department Care Team (Late st Contact Info) Description 02/21/2025 8:30 AM EDT Office Visit [facility] Internal Medicine - Family Medicine [address] [place] [address] Joaquin Devine DO [address] [place] [address] 10/11/2025 4:00 PM EDT Office Visit [facility] Internal Medicine - Family Medicine [address] [place] [address] documented as of this encounter Visit Diagnoses Not on filedocumented in this encounter Additional Health Concerns Assessment Noted Time PHQ-9 Depression Total Score: 0 10/11/19 3:02 PM EDT A Body Mass Index follow-up plan has been documented for the patient 09/14/2023 3:11 PM EDT documented as of this encounter Care Teams Brick Mason Relationship Specialty Start Date End Date Joaquin Devine DO [address] [place] [address] PCP - General Family Medicine 07/06/23 documented as of this encounter
--- OUTSIDE RECORDS SUMMARY | 2025-02-20 15:19 | XMS_ITS | Clinical Summary ---
Author Organization [facility] Address [address] [address] Care Team Providers Care Latin Professor Name Role Phone Unavailable Primary Care Provider Unavailabl e Social History Tobacco Use Types Packs/Day Years Used Date Smoking Tobacco: Never Assessed Comments Unknown Sex and Gender Information Value Date Recorded Sex Assigned at Not on file Legal Sex Female 12:34 AM EDT Gender Identity Not on file Sexual Orientation Not on file Plan of Treatment Not on file
--- OUTSIDE RECORDS SUMMARY | 2025-02-20 15:20 | XMS_ITS | Encounter Summary ---
Author Organization [facility] [employer] [facility] [employer] Address [id number] [address] [place] [address] Care Team Providers Care Packaging Sales Consultant Name Role Phone CheriJoaquin chung Primary Care Provider [phone] Encounter Details Date Type Department Care Team (Late st Contact Info) Description 10/26/2023 Orders Only [facility] Internal Medicine - Family Medicine [address] [place] [phone] External, Scanning Provider Social History Tobacco Use Types Packs/Day Years Used Date Smoking Tobacco: Never Smokeless Tobacco: Never Alcohol Use Standard Drinks/Week Comments Not Currently 0 (1 standard drink = 0.6 oz pur e alcohol) [facility] Utilities Answer Date Recorded In the past 12 months has [employer], gas, oil, or water [employer] threatened to shut off services in your [...] often do you attend chur ch or pentecostal services? More than 4 times per year 10/07/2023 Do you belong to any clubs o r organizations such as faith groups, unions, fraternal or athletic groups, or [...] PHQ-2 Answer Date Recorded Total Score 0 10/25/2023 [facility] of Occupat ional Health - Occupational Stress [...] got money to buy more. Never True 10/25/2023 Within the past 12 months th e food we bought just didn't last and we didn't have money to get more. Never True 10/25/2023 Purpose - Life Answer Date Recorded I [...] Medicine - Family Medicine [address] [place] [address] Joaquin Devine DO [address], [facility] [place] [address] 10/11/2025 4:00 PM EDT Office Visit [facility] Internal Medicine - Family Medicine [address] [place] [address] documented as of this encounter Procedures Procedure Name Priority Date/Time Associated Diagnosis Comments D-DIMER Routine 10/25/2023 HEMOGLOBIN A1C Routine 10/25/2023 COMPREHENSIVE METABOLIC PANEL Routine 10/25/2023 documented in this encounter Results * D-Dimer (10/25/2023) D-dimer 0.62 MANUALLY TRANSCRIBED RESULTS 10/25/2023 us Scanning Provider External LAB BLOOD ORDERABLES Final Result MANUALLY TRANSCRIBED RESULTS * Comprehensive metabolic panel (10/25/2023) External Albumin 3.9 MAN UALLY TRANSCRIBED RESULTS External Alt Sgpt 20 MANUALLY TRANSCRIBED RESULTS External Anion Gap 13.5 MANUALLY TRANSCRIBED RESULTS External Ast 18 MANUALL Y TRANSCRIBED RESULTS External Blood Urea Nitrogen Bun 9.0 MANUALLY TRANSCRIBED RESULTS External Calcium Ca 9.0 MANUALLY TRANSCRIBED RESULTS External Chloride 106 MANUALLY TRANSCRIBED RESULTS External Co2 / Carbon Dioxide 27.0 MANUALLY TRANSCRIBED RESULTS External Creatinine 0.67 MANUALLY TRANSCRIBED RESULTS External Gfr Amer >60 MANUALLY TRANSCRIBED RESULTS External Gfr Non Amer >60 MANUALLY TRANSCRIBED RESULTS External Alkaline Phosphatase 54 MANUALLY TRANSCRIBED RESULTS External Glucose Fasting Or Random (Fbs) 134 MANUALLY TRANSCRIBED RESULTS External Potassium K 3.4 MANUALLY TRANSCRIBED RESULTS External Sodium Na 143 MANUALLY TRANSCRIBED RESULTS Total Bilirubin 0.7 MANU ALLY TRANSCRIBED RESULTS External Total Protein 7.2 MANUALLY TRANSCRIBED RESULTS Blood 10/25/2023 us Scanning Provider External LAB BLOOD ORDERABLES Final Result MANUALLY TRANSCRIBED RESULTS * Hemoglobin A1c (10/25/2023) External Hemoglobin A1C 7.4 % MANUALLY TRANSCRIBED RESULTS Blood 10/25/2023 us Scanning Provider External LAB BLOOD ORDERABLES Final Result MANUALLY TRANSCRIBED RESULTS documented in this encounter Visit Diagnoses Not on filedocumented in this encounter Additional Health Concerns Assessment Noted Time PHQ-9 Depression Total Score: 0 10/25/19 24 11:15 AM EDT A Body Mass Index follow-up plan has been documented for the patient 09/14/2023 3:11 PM EDT documented as of this encounter Care Teams Packaging Sales Consultant Relationship Specialty Start Date End Date Joaquin Devine DO [address], [place] [address] PCP - General Family Medicine 07/06/23 documented as of this encounter
--- OUTSIDE RECORDS SUMMARY | 2025-02-20 15:20 | XMS_ITS | Encounter Summary ---
Author Organization [employer] Address [id number] [address] [place] [address] Care Team Providers Care District Director Name Role Phone Joaquin Devine Primary Care Provider [phone] Encounter Details Date Type Department Care Team ([facility] Contact Info) Description 07/03/2022 Telephone [facility] Internal Medicine - Family Medicine [address] [place] [phone] Mitzi Dorman CMA Social History Tobacco Use Types Packs/Day Years Used Date Smoking Tobacco: Never Smokeless Tobacco: Never PHQ-2 Answer Date Recorded Total Score 0 07/07/2022 Childcare Answer Date Recorded Childcare Unknown 11/02/2018 Employment Answer Date Recorded Employment Unknown 11/02/2018 Purpose - Life Answer Date Recorded Purpose and direction in life Unknown Comments No Sex and Gender Information Value Date Recorded Sex Assigned at Not on file Legal Sex Female 11:27 AM EDT Gender Identity Not on file Sexual Orientation Not on file documented as of this encounter Miscellaneous Notes * Telephone Encounter - Mitzi Dorman CMA - 07/03/2022 8:58 AM EST Pt came in today and is having a cough for x2 days. She was wondering if you could send in cough syrup Tussin Dm. She has just been using cough drops and tylenol. If you are willing to send this in it will go to [facility]. documented in this encounter Plan of Treatment Upcoming Encounters Date Type Department Care Team ([facility] Contact Info) Description 02/21/2025 8:30 AM EDT Office Visit [facility] Internal Medicine - Family Medicine [address] [place] [address] Joaquin Devine DO [address] [place] [address] 10/11/2025 4:00 PM EDT Office Visit [facility] Medicine - Family Medicine [address] [place] [address] documented as of this encounter Visit Diagnoses Not on filedocumented in this encounter Care Teams District Director Relationship Specialty Start Date End Date Joaquin Devine DO [address] [facility] [place] [address] PCP - General Family Medicine 07/06/23 documented as of this encounter
--- OUTSIDE RECORDS SUMMARY | 2025-02-20 15:20 | XMS_ITS | Encounter Summary ---
Author Organization [employer] Address [id number] [address] [place] [address] Care Team Providers Care Whipped Topping Supervisor Name Role Phone Joaquin Devine DO Primary Care Provider [phone] Reason for Visit * Reason Comments Med Refill Encounter Details Date Type Department Care Team (Late st Contact Info) Description 02/27/2023 Refill [facility] Internal Medicine - Family Medicine [address] [place] [phone] Joaquin Devine DO [address], [facility] [place] [address] Social History Tobacco Use Types Packs/Day Years Used Date Smoking Tobacco: Never Smokeless Tobacco: Never Alcohol Use Standard Drinks/Week Comments Not Currently 0 (1 standard drink = 0.6 oz pur e alcohol) PHQ-2 Answer Date Recorded Total Score 0 07/23/2022 Childcare Answer Date Recorded Childcare Unknown 11/02/2018 Employment Answer Date Recorded Employment Unknown 11/02/2018 Hunger Screening Answer Date Recorded Within the past 12 months we worried whether our food would run out before we got money to buy more. Never True 02/08/2023 Within the past 12 months th e food we bought just didn't last and we didn't have money to get more. Never True 02/08/2023 Purpose - Life Answer Date Recorded Purpose [...] Medicine - Family Medicine [address] [place] [address] Joaquin Devine DO [address], [facility] [place] [place] [address] 10/11/2025 4:00 PM EDT Office Visit [facility] Internal Medicine - Family Medicine [address] [place] [address] documented as of this encounter Visit Diagnoses Not on filedocumented in this encounter Additional Health Concerns Assessment Noted Time PHQ-9 Depression Total Score: 0 07/24/19 23 2:18 PM EST documented as of this encounter Care Teams Whipped Topping Supervisor Relationship Specialty Start Date End Date Joaquin Devine DO [address] [facility] [place] [address] PCP - General Family Medicine 07/06/23 documented as of this encounter
--- OUTSIDE RECORDS SUMMARY | 2025-02-20 15:20 | XMS_ITS | Clinical Summary ---
Author Organization [employer] tem Address [id number] [address] [place] [address] Care Team Providers Care Integrated Pest Management Technician Name Role Phone CheriJoaquin chung Primary Care Provider Allergies Active Allergy Reactions Criticality Noted Date Comments Amoxicillin Rash Low 03/27/2022 Cefdinir Rash,Hives Low 06/04/2021 Lisinopril Cough Low 06/04/2021 Sulfamethoxazole-Trimethoprim Other (See Comments) 06/04/2021 Medications amLODIPine (NORVASC) 5 mg tablet Take 1 tablet (5 mg total) by mouth in the morning. 90 tablet 1 3 Active calcium carbonate-darline min D3 (CALTRATE) 600 mg(1,500mg) -400 units per tablet Take 1 tablet by mouth in the morning. Active ONETOUCH VERIO TEST STRIPS strip 1 strip by other route as needed for high blood sugar. 100 strip 3 4 Active blood-glucose meter (ONETOUCH VERIO FLEX METER) misc 1 Unit by miscellaneous route in the morning. 1 each 4 Active lancets (onetouch ultrasoft) miscIndication s:Type 2 diabetes mellitus without complication, without long-term current use of insulin ([facility]) Inject 1 Lancet under the skin in the morning. E11.9. 100 each 3 4 Active ONETOUCH DELICA PLUS LANCET 30 gauge misc USE 1 LANCET TO CHECK GLUCOSE IN THE MORNING 5 Active metFORMIN (GLUCOPHAGE) 500 mg tablet Take 1 tablet (500 mg total) by mouth daily with breakfast. TAKE 1 TABLET BY MOUTH IN THE MORNING AND 1 IN THE EVENING WITH MEALS 90 tablet 1 5 Active Active Problems Problem Noted Date Diagnosed Date Hypomagnesemia 11/20/2024 Hypokalemia 11/20/2024 Colon cancer screening 09/17/2024 Feeling of incomplete bladder emptying 4 Leaking of urine 07/06/2023 Renal cyst 07/06/2023 Anxiety 10/01/2022 Cervical somatic dysfunction 04/13/2022 Segmental and somatic dysfunction of thoracic re gion 04/13/2022 Type 2 diabetes mellitus wit hout complication, without long-term current use of insulin 03/27/2022 Tension-type headache 03/27/2022 Stress incontinence of urine 03/27/2022 Scapular dyskinesis 03/27/2022 Psoriasis 03/27/2022 Muscle pain 03/27/2022 Cruz's neuroma of right foot 03/27/2022 Hyperlipidemia 03/27/2022 Generalized anxiety disorder 03/27/2022 Eczema 03/27/2022 Diverticular disease 03/27/2022 Contracture, right ankle 03/27/2022 Chronic reactive otitis externa of both ears 08/2021 Cavernous hemangioma 03/27/2022 Sensorineural hearing loss (SNHL), bilateral 08/2021 Allergic rhinitis 03/27/2022 Age-related osteoporosis wit hout current pathological fracture 03/27/2022 Asymptomatic microscopic hematuria 03/27/2022 Cobalamin deficiency 09/10/2021 Degenerative joint disease of shoulder region Benign essential hypertension 08/26/2020 Finding of above normal blood pressure 9 Deviated nasal septum 05/11/2019 Temporomandibular joint disorder 04/25/2018 Benign paroxysmal positional vertigo 03/17/2016 DDD (degenerative disc disease), cervical 2015 Microalbuminuric diabetic nephropathy 08/29/2015 Duodenitis 05/24/2010 Resolved Problems Problem Noted Date Diagnosed Date Resolved Date Acute deep vein thrombosis ( DVT) of calf muscle vein of right lower extremity 07/06/2023 Overweight 03/27/2022 07/06/2023 Depressive disorder 03/27/2022 07/06/19 24 Encounters Date Type Department Care Team Description 01/11/2025 3:15 PM EDT - 01/11/2025 4:12 PM EDT Emergency [facility] [address] [place] [address] Sadaf Galeana DO Pain of right lower extremity (Primary Dx) Discharge Disposition: Home 01/11/2025 Travel 11/21/2024 Telephone [facility] [address] [place] [address] Mary Hoover, [facility] 11/21/2024 Telephone [facility] [address] [place] [address] Mary Hoover, [facility] 11/20/2024 8:30 AM EDT Office Visit [facility] [address] [address] Joaquin Devine, Type 2 diabetes mellitus with diabetic nephropathy, without long-term current use of insulin ([facility]) (Primary Dx); Excessive cerumen in right ear canal; Hypomagnesemia; Hypokalemia; Type 2 diabetes mellitus without complication, without long-term current use of insulin ([facility]); Overweight 11/20/2024 Travel from Last 3 Months Immunizations Immunization Administration Dates Next Due Influenza High Dose Preserva tive Free IM 04/24/2024,02/22/2020,02/06/2020,07/30,05/21/2018 Influenza Vaccine, Quadrival ent, Adjuvanted 03/15/2022 Influenza, High-dose, Quadrivalent 05/06/2021 Influenza, Unspecified 02/24/2013 Pneumococcal Conjugate 13-Valent 07/20/2014 Pneumococcal Polysaccharide 08/02/2019, 8 Tdap 10/15/2011 Family History Medical History Relation Name Comments High Cholesterol Brother 1 Alcohol abuse Brother 6 Coronary artery disease Father High Cholesterol Father Throat cancer Father Not sure if it was pharynx or larynx-he was a smoker Cancer Mother Was in her abdo men but does not know the primary High Cholesterol Sister 1 Cancer Sister 6 Cancer of her l ower limb Breast cancer Neg Hx Relation Name Status Comments Brother 1 Alive Brother 2 Alive Brother 3 Alive Brother 4 Alive Brother 5 Alive Brother 6 Father Mother Sister 1 Alive Sister 2 Alive Sister 3 Alive Sister 4 Alive Sister 5 Alive Sister 6 Social History Tobacco Use Types Packs/Day Years Used Date Smoking Tobacco: Never Smokeless Tobacco: Never Tobacco Cessation:Counseling Given: Not Answered Alcohol Use Standard Drinks/Week Comments Not Currently 0 (1 standard drink = 0.6 oz pur e alcohol) [facility] Utilities Answer Date Recorded In the past 12 months has th e [employer], gas, oil, or water [employer] threatened to shut off services in your [...] week 10/07/2023 How often do you attend [facility] or roman catholic services? More than 4 times per year 10/07/2023 Do you belong to any clubs o r organizations such as jain groups, unions, fraternal or athletic groups, or [...] Answer Date Recorded Total Score 0 11/20/2024 [facility] [place] of Occupat ional Health - Occupational Stress [...] Recorded Do you need help finding a [facility] career center and/or a training program? [...] on file Sexual Orientation Not on file Last Filed Vital Signs Vital Sign Reading Time Taken Comments Blood Pressure 179/80 01/11/2025 1:02 PM EDT Pulse 83 01/11/2025 1:02 PM EDT Temperature 36.8 C (98.2 F) 01/11/2025 1:02 PM EDT Respiratory Rate 16 01/11/2025 1:02 PM EDT Oxygen Saturation 100% 01/11/2025 1:02 PM EDT Inhaled Oxygen Concentration - - Weight 56.7 kg (125 lb) 01/11/2025 1:02 PM EDT Height 157.5 cm (5' 2 ) 01/11/2025 1:02 PM EDT Body Mass Index 22.86 01/11/2025 1:02 PM EDT Plan of Treatment Upcoming Encounters Date Type Department Care Team (Late st Contact Info) Description 02/21/2025 8:30 AM EDT Office Visit [facility] [address] [place] [phone] Joaquin Devine DO [address], [facility] [place] [address] 10/11/2025 4:00 PM EDT Office Visit [facility] [address] [place] [phone] Health Maintenance Due Date Last Done Comments Statin Use: Diabetic 1950 Zoster (Shingles) Vaccine (1 of 2) 1970 DTaP,Tdap and Td Vaccines (2 - Td or Tdap) 10/14/2021 10/15/2011 Diabetic Ophthalmology Exam 06/11/202405/24, 06/11/2023, 06/11/2023, Additional history exists COVID-19 Vaccine ( - 2024-2 6 season) 2025 05/27/2021, 10/07/2020, 09/16/2020 Influenza Vaccine 01/22/2025 04/24/2024, , 05/06/2021, Additional history exists Diabetic Foot Exam 02/20/2025 02/21/2024 Mammogram 05/13/2025 05/13/2024, 08/23, 07/16/2020, Additional history exists Medicare Annual Wellness Visit 10/10/2025 10/10/2024 , 10/07/2023 Depression Screening 11/20/2025 11/20/2024 Fall Risk Screening 11/20/2025 11/20/2024 Adult BMI Screening 01/11/2026 01/11/2025 Tobacco Screening 01/11/2026 01/11/2025 Colonoscopy 03/26/2026 03/26/2016, 03/26/2016 Medical Devices Not on file Procedures Procedure Name Priority Date/Time Associated Diagnosis Comments VASC VENOUS DUPLEX LOWER RIGHT STAT 01/11/2025 2:51 PM EDT D-DIMER STAT 01/11/2025 1:51 PM EDT EXTRA TUBES LAVENDER TOP Routine 01/11/2025 1:50 PM EDT EXTRA TUBES PST TOP Routine 01/11/2025 1 :50 PM EDT EXTRA TUBES Routine 01/11/2025 1:50 PM EDT BASIC METABOLIC PANEL Routine 11/20/2024 9:03 AM EDT Hypokalemia HEMOGLOBIN A1C Routine 11/20/2024 9:03 AM EDT Type 2 diabetes mellitus without complication, without long-term current use of insulin ([facility]) MAGNESIUM Routine 11/20/2024 9:03 AM EDT Hypomagnesemia TSH Routine 11/20/2024 9:03 AM EDT Type 2 diabetes mellitus without complication, without long-term current use of insulin ([facility]) MAMM SCREENING BILATERAL W CAD Routine 05/13/2024 9:27 AM EST Encounter for screening mammogram for malignant neoplasm of breast HM DIABETES EYE EXAM Routine 06/11/2023 2:47 PM EST from Last 3 Months or Most Recently Relevant to Health Maintenance Results * Vas venous duplex lwr single right (01/11/2025 2:51 PM EDT) Anatomical Region Laterality Modality Vascular Right Ultrasound 01/11/2025 3:03 PM EDT Narrative 01/11/2025 3:30 PM EDT Right: Lower extremity deep veins are compressible with spontaneous phasic spectral Doppler waveforms; superficial veins are compressible without intraluminal content. Left: Common femoral vein is compressible with spontaneous phasic spectral Doppler waveforms. Conclusions: NO EVIDENCE of deep or superficial vein thrombosis of the right lower extremity. No evidence of deep vein thrombosis (DVT) of the left common femoral vein. Procedure Note Divya Tello MD - 01/11/2025 Right: Lower extremity deep veins are compressible with spontaneous phasicspectral Doppler waveforms; superficial veins are compressible withoutintraluminal content. Left: Common femoral vein is compressible with spontaneous phasic spectralDoppler waveforms. Conclusions: NO EVIDENCE of deep or superficial vein thrombosis of theright lower extremity. No evidence of deep vein thrombosis (DVT) of theleft common femoral vein. Parul Joel APRN-MIXING SUPERVISOR CV VASCULAR ORDERABLE S Final Result * D-Dimer (01/11/2025 1:51 PM EDT) [facility] D DIMER 204 1 - 255 ug/mL 01/11/2025 2:13 PM EDT [facility] Comment:Results <255 ng/mL D DU: The presensence of a VTE can safely be excluded with a negative D-Dimer result and Wells score. A negative result doesn't exclude the possibility of DIC. The test should be repeated along with other diagnostic tests if the patient's symptoms persist or worsen. Blood Venous blood / Unknown Venipuncture / Unknown 01/11/2025 1:51 PM EDT 01/11/2025 1:57 PM EDT Parul Joel APRN-MIXING SUPERVISOR LAB BLOOD ORDERABLES Final Result [facility] [address] [place] [address], [place] * Lavender Top (01/11/2025 1:50 PM EDT) Pathologist [facility] Extra Tube Auto Resulted 01/11/2025 3:02 PM EDT [facility] Blood Venous blood / Unknown 01/11/2025 1:50 PM EDT 01/11/2025 1:59 PM EDT Parul Joel TREE SURGEON-MIXING SUPERVISOR LAB BLOOD ORDERABLES Final Result [address] [place] [address], [place] * PST TOP (01/11/2025 1:50 PM EDT) Extra Tube Auto Resulted 01/11/2025 3:02 PM EDT [facility] Blood Venous blood / Unknown 01/11/2025 1:50 PM EDT 01/11/2025 1:59 PM EDT Parul Joel TREE SURGEON-MIXING SUPERVISOR LAB BLOOD ORDERABLES Final Result Performing Organization Address City/[facility]/ZIP Co de Phone Number [address] [place] [address], [place] * TSH (11/20/2024 9:03 AM EDT) TSH 2.06 0.49 - 4.67 uIU/mL 11/20/2024 6:59 PM EDT [facility] Blood Venous blood / Unknown 11/20/2024 9:03 AM EDT 11/20/2024 9:03 AM EDT Joaquin Devine DO LAB BLOOD ORDERABLES Final R esult [facility] [address] [place] [address], [place] [phone] * Magnesium (11/20/2024 9:03 AM EDT) MAGNESIUM 1.9 1.8 - 2.6 mg/dL 11/20/2024 6:50 PM EDT [facility] Blood Venous blood / Unknown 11/20/2024 9:03 AM EDT 11/20/2024 9:03 AM EDT us Joaquin Devine LAB BLOOD ORDERABLES Final R esult [facility] [address] [place] [address], [place] [phone] * (ABNORMAL) Hemoglobin A1c (11/20/2024 9:03 AM EDT) HEMOGLOBIN A1C 7.0(H) 4.4 - 5.6 % 11/20/2024 7:02 PM EDT [facility] Comment: ADA Guidelines Result HgbA1c Normal : less than 5.7 % Prediabetes : 5.7 % to 6.4 % Diabetes : > 6.4 % Use with caution in patients with abnormal hemoglobin variants as the half-life of red blood cells and in vivo glycation rates are affected. EST. AVERAGE GLUCOSE 154 mg/dL 11/20/2024 7:02 PM EDT [facility] Blood Venous blood / Unknown 11/20/2024 9:03 AM EDT 11/20/2024 9:03 AM EDT us Joaquin Larkindanaesheldon LAB BLOOD ORDERABLES Final R esult [facility] [address] [place] [address], [place] [phone] * (ABNORMAL) Basic Metabolic Panel (11/20/2024 9:03 AM EDT) SODIUM 143 134 - 146 mmol/L 11/20/2024 6:50 PM EDT [facility] POTASSIUM 4.1 3.5 - 5.0 mmol/L 11/20/2024 6:50 PM EDT [facility] CHLORIDE 107 98 - 109 mmol/L 11/20/2024 6:50 PM EDT [facility] CARBON DIOXIDE 26 22 - 32 mmol/L 11/20/2024 6:50 PM EDT [facility] ANION GAP 10 5 - 15 mmol/L 11/20/2024 6:50 PM EDT [facility] BLOOD UREA NITROGEN 9 5 - 27 mg/dL 11/20/2024 6:50 PM EDT [facility] CREATININE 0.68 0.40 - 1.00 mg/dL 11/20/2024 6:50 PM EDT [facility] Comment:METHOD TRACEABLE TO IDMS STANDARD GLUCOSE 144(H) 65 - 99 mg/dL 11/20/2024 6:50 PM EDT [facility] CALCIUM 9.4 8.5 - 10.5 mg/dL 11/20/2024 6:50 PM EDT [facility] EGFR Non-Race Dependent >90 >=60 ml/min/1.7 3sq.m 11/20/2024 6:50 PM EDT [facility] Comment: Reported eGFR is based on the CKD-EPI 2020 equation that does not use a race coefficient. Blood Venous blood / Unknown 11/20/2024 9:03 AM EDT 11/20/2024 9:03 AM EDT us Joaquin Devine DO LAB BLOOD ORDERABLES Final R esult [facility] [address] [place] [address], [place] [phone] * Mammography screening bilateral with CAD (05/13/2024 9:27 AM EST) Anatomical Region Laterality Modality Breast Bilateral Mammography 05/16/2024 9:26 AM EST Narrative 05/16/2024 9:27 AM EST JAMIR JONES 1950 [id number] EXAM: MAMM SCREENING BILATERAL W CAD, 05/13/2024 [...] 9:27 AM 1 b MAMM 1 YR FDA Accredited Performing Facility: [facility] - Mammography/DEXA Imaging [address] [facility] [id number] Procedure Note Amarilis Martinez MD - 05/16/2024 JAMIR JONES 1950 [id number] EXAM: MAMM SCREENING BILATERAL W CAD, 05/13/2024 9:05 AM CLINICAL INDICATIONS: Screening, Encounter for screening mammogram formalignant neoplasm of breast COMPARISON: Multiple prior mammograms were viewed for comparison datingback to 09/05/2018 TECHNIQUE: Bilateral digital tomosynthesis MLO and CC views of the breastswere obtained, with creation of synthetic 2D views. Computer aideddetection was utilized. FINDINGS: There are scattered areas of fibroglandular density. There are no suspicious masses, calcifications, or areas of architecturaldistortion. IMPRESSION: No mammographic evidence of malignancy. BI-RADS: BI-RADS 1 - Negative RECOMMENDATION: Routine screening mammogram in 1 year. RISK ASSESSMENT: TC Lifetime risk: 1.98%. The patient's reported personal and family medical history was usedcalculate their Tyrer-Cuzick lifetime risk of malignancy. Scores less than20% are not considered high risk per ACR guidelines and patient shouldcontinue with the above recommendation. Finalized by Amarilis Martinez MD on 05/16/2024 9:27 AM 1 b MAMM 1 YR FDA Accredited Performing Facility: [facility] - Mammography/DEXA Imaging [address] [place] [address] [place] Joaquin Devine DO IMG MAMMOGRAPHY ORDERABLES F inal Result * DIABETES EYE EXAM (06/11/2023 2:47 PM EST) us Not In System Ref Prov HEALTH MAINTENANCE Final Result MANUALLY TRANSCRIBED RESULTS from Last 3 Months or Most Recently Relevant to Health Maintenance Insurance [employer] MEDICARE Care Teams Integrated Pest Management Technician Relationship Specialty Start Date End Date Joaquin Devine DO [address], [place] [address] PCP - General Family Medicine 07/06/23
--- OUTSIDE RECORDS SUMMARY | 2025-02-20 15:20 | XMS_ITS | Encounter Summary ---
Author Organization [employer] Address [id number] [address] [place] [address] Care Team Providers Care Research Contracts Supervisor Name Role Phone CheriJoaquin chung Primary Care Provider [phone] Encounter Details Date Type Department Care Team (Late st Contact Info) Description 11/17/2023 Telephone [facility] - [facility] Medicine [address] [place] [phone] Marta Shi CMA Social History Tobacco Use Types Packs/Day Years Used Date Smoking Tobacco: Never Smokeless Tobacco: Never Alcohol Use Standard Drinks/Week Comments Not Currently 0 (1 standard drink = 0.6 oz pur e alcohol) [facility] Utilities Answer Date Recorded In the past 12 months has [employer] [place], gas, oil, or water [employer] threatened to shut off services in your [...] often do you attend chur ch or confucianism services? More than 4 times per year 10/07/2023 Do you belong to any clubs o r organizations such as yarsanism groups, unions, fraternal or athletic groups, or [...] PHQ-2 Answer Date Recorded Total Score 0 11/09/2023 [facility] [place] of Occupat ional Health - Occupational Stress [...] got money to buy more. Never True 11/09/2023 Within the past 12 months th e food we bought just didn't last and we didn't have money to get more. Never True 11/09/2023 Purpose - Life Answer Date Recorded I have a purpose and direction in my life. Agree 10/07/2023 Comments No Sex and Gender Information Value Date Recorded Sex Assigned at Not on file Legal Sex Female 11:27 AM EDT Gender Identity Not on file Sexual Orientation Not on file documented as of this encounter Miscellaneous Notes * Telephone Encounter - Marta Shi CMA - 11/17/2023 9:35 AM EDT ----- Message from Dr. Joaquin Devine DO sent at 11/17/2023 9:30 AM EDT ----- Her venous Doppler scan did not show any DVT * Telephone Encounter - Marta Shi CMA - 11/17/2023 9:35 AM EDT Left message for patient to call us back. * Telephone Encounter - Suki Lombardi CMA - 11/17/2023 9:35 AM EDT Pt called for her results , called back left vm to cb documented in this encounter Plan of Treatment Upcoming Encounters Date Type Department Care Team (Late st Contact Info) Description 02/21/2025 8:30 AM EDT Office Visit [facility] [address] [place] [address] Joaquin Devine DO [address] [place] [address] 10/11/2025 4:00 PM EDT Office Visit [facility] [address] [place] [address] documented as of this encounter Visit Diagnoses Not on filedocumented in this encounter Additional Health Concerns Assessment Noted Time PHQ-9 Depression Total Score: 0 11/09/19 3:57 PM EDT A Body Mass Index follow-up plan has been documented for the patient 09/14/2023 3:11 PM EDT documented as of this encounter Care Teams Research Contracts Supervisor Relationship Specialty Start Date End Date Joaquin Devine DO [address], [facility] [place] [address] PCP - General Family Medicine 07/06/23 documented as of this encounter
--- OUTSIDE RECORDS SUMMARY | 2025-02-20 15:20 | XMS_ITS | Encounter Summary ---
Author Organization [employer] Address [id number] [address] [place] [address] Care Team Providers Care Clinical Document Improvement Educator Name Role Phone Joaquin Devine DO Primary Care Provider Encounter Details Date Type Department Care Team (Late Contact Info) Description 06/12/2022 Orders Only [facility] [address] [place] [phone] External, Scanning Provider Social History Tobacco Use Types Packs/Day Years Used Date Smoking Tobacco: Never Smokeless Tobacco: Never Childcare Answer Date Recorded Childcare Unknown 11/02/2018 [...] Encounters Date Type Department Care Team (Late Contact Info) Description 02/21/2025 8:30 AM EDT Office Visit [facility] [address] [place] [address] Joaquin Devine, DO [address] [place] [address] 10/11/2025 4:00 PM EDT Office Visit [facility] [address] [place] [address] documented as of this encounter Procedures Procedure Name Priority Date/Time Associated Diagnosis Comments DIABETES EYE EXAM Routine 06/12/2022 documented in this encounter Results * DIABETES EYE EXAM (06/12/2022) us Scanning Provider External HEALTH MAINTENANCE Fi nal Result MANUALLY TRANSCRIBED RESULTS documented in this encounter Visit Diagnoses Not on filedocumented in this encounter Care Teams Clinical Document Improvement Educator Relationship Specialty Start Date End Date Joaquin Devine DO [address] [place] [address] PCP - General Family Medicine 07/06/23 documented as of this encounter
--- OUTSIDE RECORDS SUMMARY | 2025-02-20 15:20 | XMS_ITS | Encounter Summary ---
Author Organization [email or web address] Address [id number] [address] [place] [address] Care Team Providers Care Director Of Sales Marketing Name Role Phone Joaquin Devine DO Primary Care Provider [phone] Encounter Details Date Type Department Care Team (Late Contact Info) Description 02/12/2023 Orders Only [facility] Internal Medicine - Family Medicine [address] [place] [phone] Ref Prov, [place] [address] Social History Tobacco Use Types Packs/Day Years [...] Medicine - Family Medicine [address] [place] [address] Joaquin Devine DO [address] [place] [address] 10/11/2025 4:00 PM EDT Office Visit [facility] [address] [place] [address] documented as of this encounter Procedures Procedure Name Priority Date/Time Associated Diagnosis Comments DIABETES EYE EXAM Routine 02/10/2023 11:56 AM EDT documented in this encounter Results * DIABETES EYE EXAM (02/10/2023 11:56 AM EDT) us Not In System Ref Prov HEALTH MAINTENANCE Final Result MANUALLY TRANSCRIBED RESULTS documented in this encounter Visit Diagnoses Not on filedocumented in this encounter Additional Health Concerns Assessment Noted Time PHQ-9 Depression Total Score: 0 07/24/19 23 2:18 PM EST documented as of this encounter Care Teams Director Of Sales Marketing Relationship Specialty Start Date End Date Joaquin Devine DO [address] [place] [address] PCP - General Family Medicine 07/06/23 documented as of this encounter
--- OUTSIDE RECORDS SUMMARY | 2025-02-20 15:20 | XMS_ITS | Encounter Summary ---
Author Organization Bottles tem Address [id number] [address] [place] [address] Care Team Providers Care Tank Wagon Operator Name Role Phone Joaquin Devine DO Primary Care Provider Encounter Details Date Type Department Care Team (Late Contact Info) Description 03/11/2022 Orders Only [facility] Internal Medicine - Family Medicine [address] [place] [phone] External, Scanning Provider Social History Tobacco Use [...] Upcoming Encounters Date Type Department Care Team ([facility] Contact Info) Description 02/21/2025 8:30 AM EDT [facility] Medicine [address] [place] [address] Joaquin Devine, DO [address] [place] [address] 10/11/2025 4:00 PM EDT Office Visit [facility] Internal Medicine - Family Medicine [address] [place] [address] documented as of this encounter Procedures Procedure Name Priority Date/Time Associated Diagnosis Comments HEPATITIS C(HCV) ANTIBODY W/REFLEX TO PCR Routine 03/05/2022 documented in this encounter Results * Hepatitis C(HCV) Ab w/ Reflex to PCR (03/05/2022) Hepatitis C Ab Negative Negative VIJAY BOTELLO TRANSCRIBED RESULTS 03/05/2022 us Scanning Provider External LAB BLOOD ORDERABLES Final Result MANUALLY TRANSCRIBED RESULTS documented in this encounter Visit Diagnoses Not on filedocumented in this encounter Care Teams Tank Wagon Operator Relationship Specialty Start Date End Date Joaquin Devine DO [address] [facility], [place] [address] PCP - General Family Medicine 07/06/23 documented as of this encounter
--- OUTSIDE RECORDS SUMMARY | 2025-02-20 15:20 | XMS_ITS | Encounter Summary ---
Author Organization [employer] Address [id number] [address] [place] [address] Care Team Providers Care Candy Depositing Machine Operator Name Role Phone CheriJoaquin chung Charlotte VELASQUEZ Primary Care Provider +[phone] Encounter Details Date Type Department Care Team (Late st Contact Info) Description 11/04/2023 [facility] [address] [place] [phone] Werner Gamez CMA Social History Tobacco Use Types Packs/Day Years Used Date Smoking Tobacco: Never Smokeless Tobacco: Never Alcohol Use Standard Drinks/Week Comments Not Currently 0 (1 standard drink = 0.6 oz pur e alcohol) [facility] Utilities Answer Date Recorded In the past 12 months has [employer], gas, oil, or water [employer] threatened to shut off services in your [...] often do you attend chur ch or confucianist services? More than 4 times per year 10/07/2023 Do you belong to any clubs o r organizations such as bahai groups, unions, fraternal or athletic groups, or [...] Answer Date Recorded Total Score 0 10/25/2023 [facility] - Occupational Stress [...] Telephone Encounter - Werner Gamez CMA - 11/04/2023 9:43 AM EDT ----- Message from Joaquin Devine DO sent at 11/04/2023 8:51 AM EDT ----- Her d-dimer was just a bit high-a few fractions of a point over normal. I also ordered a venous doppler but I don't see that report. Did she get it done? * Telephone Encounter - Werner Gamez CMA - 11/04/2023 9:43 AM EDT Pt returned out call . NO she has not had the VENOUS doppler done. I gave her the number to scheduling and told her to call hospital and get this done. Pt verbally states she understands documented in this encounter Plan of Treatment Upcoming Encounters Date Type Department Care Team (Late st Contact Info) Description 02/21/2025 8:30 AM EDT Office Visit [facility] Internal Medicine - Family Medicine [address] [place] [address] Joaquin Devine DO [address] [facility] [place] [address] 10/11/2025 4:00 PM EDT Office Visit [facility] Internal Medicine - Family Medicine [address] [place] [address] documented as of this encounter Visit Diagnoses Not on filedocumented in this encounter Additional Health Concerns Assessment Noted Time PHQ-9 Depression Total Score: 0 10/25/19 11:15 AM EDT A Body Mass Index follow-up plan has been documented for the patient 09/14/2023 3:11 PM EDT documented as of this encounter Care Teams Candy Depositing Machine Operator Relationship Specialty Start Date End Date Joaquin Devine DO [address] [facility] [place] [address] PCP - General Family Medicine 07/06/23 documented as of this encounter
--- OUTSIDE RECORDS SUMMARY | 2025-02-20 15:20 | XMS_ITS | Encounter Summary ---
Author Organization [employer] tem Address [id number] [address] [place] [address] Care Team Providers Care Proof Operator Name Role Phone Joaquin Devine DO Primary Care Provider Encounter Details Date Type Department Care Team (Late Contact Info) Description 02/05/2023 Orders Only [facility] [address] [place] [address] Ref Prov, [place] [address] Social History Tobacco Use Types Packs/Day Years [...] Medicine - Family Medicine [address] [place] [address] Joaquin Devine DO [address] [facility] [place] [address] 10/11/2025 4:00 PM EDT Office Visit [facility] Internal Medicine - Family Medicine [address] [place] [address] documented as of this encounter Procedures Procedure Name Priority Date/Time Associated Diagnosis Comments MULTIPLE LABS Routine 02/05/2023 2:17 PM EDT documented in this encounter Results * Multiple labs (02/05/2023 2:17 PM EDT) us Not In System Ref Prov [facility] Final Res ult MANUALLY TRANSCRIBED RESULTS documented in this encounter Visit Diagnoses Not on filedocumented in this encounter Additional Health Concerns Assessment Noted Time PHQ-9 Depression Total Score: 0 07/24/19 23 2:18 PM EST documented as of this encounter Care Teams Proof Operator Relationship Specialty Start Date End Date Joaquin Devine DO [address] [place] [address] PCP - General Family Medicine 07/06/23 documented as of this encounter
--- OUTSIDE RECORDS SUMMARY | 2025-02-20 15:20 | XMS_ITS | Encounter Summary ---
Author Organization [employer] Address [id number] [address] [place] [address] Care Team Providers Care Admissions Gate Attendant Name Role Phone Joaquin Devine DO Primary Care Provider Reason for Visit * Reason Onset Date Comments Med Refill 03/04/2022 Encounter Details Date Type Department Care Team (Late st Contact Info) Description 03/04/2022 Refill [facility] Internal Medicine - Family Medicine [address] [place] [address] Marta Shi CMA Social History Tobacco Use [...] Description 02/21/2025 8:30 AM EDT [facility] Medicine [address] [place] [address] Joaquin Devine DO [address] [place] [address] 10/11/2025 4:00 PM EDT Office Visit [facility] Internal Medicine - Family Medicine [address] [place] [address] documented as of this encounter Visit Diagnoses Not on filedocumented in this encounter Care Teams Admissions Gate Attendant Relationship Specialty Start Date End Date Joaquin Devine DO [address], [facility] [place] [address] PCP - General Family Medicine 07/06/23 documented as of this encounter
--- OUTSIDE RECORDS SUMMARY | 2025-02-20 15:20 | XMS_ITS | Encounter Summary ---
Author Organization [employer] Address [facility] [id number] [address] [place] [address] Care Team Providers Care Manager Custom Name Role Phone CheriJoaquin chung Primary Care Provider + [phone] Reason for Visit * Reason Onset Date Comments Med Refill 11/09/2024 Encounter Details Date Type Department Care Team (Late st Contact Info) Description 11/09/2024 [facility] - Family Medicine [address] [place] [address] Marta Shi CMA Social History Tobacco Use Types Packs/Day Years Used Date Smoking Tobacco: Never Smokeless Tobacco: Never Alcohol Use Standard Drinks/Week Comments Not Currently 0 (1 standard drink = 0.6 oz pur e alcohol) [facility] Utilities Answer Date Recorded In the past 12 months has [employer], gas, oil, or water company threatened [...] often do you attend chur ch or synagogue services? More than 4 times per year [...] Answer Date Recorded Total Score 0 10/10/2024 [facility] Occupat ional Health - Occupational Stress [...] Recorded Do you need help finding a [facility] career center and/or a training program? [...] - Family Medicine [address] [place] [address] Joaquin Devine DO [address] [place] [address] 10/11/2025 4:00 PM EDT Office Visit [facility] Internal Medicine - Family Medicine [address] [place] [address] documented as of this encounter Visit Diagnoses Not on filedocumented in this encounter Additional Health Concerns Assessment Noted Time PHQ-9 Depression Total Score: 0 10/11/19 25 3:02 PM EDT A Body Mass Index follow-up plan has been documented for the patient 09/14/2023 3:11 PM EDT documented as of this encounter Care Teams Manager Custom Relationship Specialty Start Date End Date Joaquin Devine DO [address] [place] [address] PCP - General Family Medicine 07/06/23 documented as of this encounter
--- OUTSIDE RECORDS SUMMARY | 2025-02-20 15:20 | XMS_ITS | Patient Health Record ---
Author Organization [facility] Address [address] [place], [place] [id number] Care Team Providers Care Center Line Cutter Operator Name Role Phone Raffy Patricia Unavailable [phone] Sadaf Green Unavailable [phone] Sanjay Oliver Unavailable [phone] Allergies Allergen (clinical drug ingredient) Drug/Non Drug Allergy documented on EMR Reaction Allergy Type Onset Date Status sulfamethoxazole / trimethoprim Bactrim Unknown Drug Allergy Active amoxicillin Amoxicillin Unknown Drug Allergy Act larisa cefdinir Cefdinir Unknown Drug Allergy Active lisinopril Lisinopril Unknown Drug Allergy Activ e Reason For Referral No Information Medications Medication SIG (Take, Route, Frequency, Duration) Notes Start Date End Date Status Atorvastatin Calcium 20 MG Oral; Duration: 90 Not-Takin g Losartan Potassium 25 MG TAKE 1 TABLET B Y MOUTH ONCE DAILY Oral; Duration: 90 Not-Taking metFORMIN HCl 500 MG Oral; Duration: 90 Active Pioglitazone HCl 15 MG Oral; Duration: 90 Not-Taking Meloxicam 7.5 MG Oral; Duration: 60 Not-Taking amLODIPine Besylate 5 MG Oral; Duration: 90 Active Meclizine HCl Not-Ta john Glimepiride 1 MG TAKE 1 TABLET BY MALOU TH ONCE DAILY IN THE MORNING FOR 90 DAYS Oral; Duration: 90 Not-Taking EQ Tussin DM Cough/Chest 10-100 MG/5ML TAKE 10 ML BY MOUTH EVERY 4 HOURS FOR 7 DAYS Oral; Duration: 7 Not-Takin g Fluticasone Propionate 50 MCG/ACT USE 2 SPRAY(S) IN EACH NOSTRIL ONCE DAILY Nasal; Duration: 30 Not-Taking Social History Tobacco Use: Social History Observation Description Date Details (start date - stop date) Never Smoker NA - NA Sex Assigned At : Social History Observation Description Sex Assigned At Female Tobacco Control (Standard) Question Answer Notes Tobacco use: Nonsmoker Vital Signs Heart Rate 73 /min 12/25/2024 Blood pressure diastolic 76 mm Hg 12/25/2024 Height-cm 157.48 cm 12/25/2024 Weight-kg 58.97 kg 12/25/2024 Height 62 in 12/25/2024 Blood pressure systolic 118 mm Hg 12/25/2024 Weight 130 lbs 12/25/2024 BMI 23.77 kg/m2 12/25/2024 Encounters Encounter Location Date Provider Diagnosis Dental Main [address] [place] [id number] 05/08/2024 Sadaf Green Encounter for scre ening for dental disorders Z13.84 and Encounter for dental examination and cleaning without abnormal findings Z01.20 Dental Main [address] [place] [id number] 08/08/2024 Sanjay Oliver Encounter for scre ening for dental disorders Z13.84 and Encounter for dental examination and cleaning with abnormal findings Z01.21 Dental Main [address] [place] [id number] 12/25/2024 Sanjay Oliver Encounter for scre ening for dental disorders Z13.84 and Encounter for dental examination and cleaning without abnormal findings Z01.20 Assessments Encounter Date Diagnosis (ICD Code) Assessment Notes Treatment Notes Treatment Clinical Notes Section Notes 05/08/2024 Encounter for screening for dental disorders (ICD-10 - Z13.84) 08/08/2024 Encounter for screening for dental disorders (ICD-10 - Z13.84) 12/25/2024 Encounter for screening for dental disorders (ICD-10 - Z13.84) 12/25/2024 Encounter for dental examination and cleaning without abnormal findings (ICD-10 - Z01.20) 08/08/2024 Encounter for dental examination and cleaning with abnormal findings (ICD-10 - Z01.21) 05/08/2024 Encounter for dental examination and cleaning without abnormal findings (ICD-10 - Z01.20) Plan Of Treatment Next Appt Details Provider Name:Sanjay Oliver , 07/05/2025 12:45:00 PM, [address] [place] [address], [id number], Insurance Providers Payer Name Payer Address Payer Phone Subscriber Number Group Number Insured Name Patient Relationship to Insured Coverage Start Date Coverage End Date MAYAgelacio [facility] [address] [place] [id number] Jamir Jones Self - patient is the insured 3 Medical (General) History Medical History History ICD Code High blood pressure Diabetes
--- OUTSIDE RECORDS SUMMARY | 2025-02-20 15:20 | XMS_ITS | Encounter Summary ---
Author Organization [employer] tem Address [id number] [address] [place] [address] Care Team Providers Care Bench Inspector Name Role Phone Joaquin Devine DO Primary Care Provider [phone] Reason for Visit * Reason Onset Date Comments Med Refill 06/29/2022 Encounter Details Date Type Department Care Team (Late st Contact Info) Description 06/29/[address] [facility] Internal Medicine - Family Medicine [address] [place] [address] Marta Shi CMA Social History Tobacco Use [...] Description 02/21/2025 8:30 AM EDT [facility] [address] [place] [address] Joaquin Devine DO [address] [place] [address] 10/11/2025 4:00 PM EDT [facility] Visit [facility] - Family Medicine [address] [place] [address] documented as of this encounter Visit Diagnoses Not on filedocumented in this encounter Care Teams Bench Inspector Relationship Specialty Start Date End Date Joaquin Devine DO [address], [facility] [place] [address] PCP - General Family Medicine 07/06/23 documented as of this encounter
--- OUTSIDE RECORDS SUMMARY | 2025-02-20 15:20 | XMS_ITS | Encounter Summary ---
Author Organization [employer] Address [facility] [id number] [address] [place] [address] Care Team Providers Care Assembly Repairer Name Role Phone Joaquin Devine DO Primary Care Provider [phone] Reason for Visit * Reason Comments Med Refill Encounter Details Date Type Department Care Team (Late st Contact Info) Description 06/03/2023 Refill [facility] Internal Medicine - Family Medicine [address] [place] [phone] Joaquin Devine DO [address], [place] [address] Social History Tobacco Use Types Packs/Day Years [...] Medicine - Family Medicine [address] [place] [address] Joaquin Devine DO [address], [facility] [place] [address] 10/11/2025 4:00 PM EDT Office Visit [facility] Internal Medicine - Family Medicine [address] [place] [address] documented as of this encounter Visit Diagnoses Not on filedocumented in this encounter Additional Health Concerns Assessment Noted Time PHQ-9 Depression Total Score: 0 07/24/19 23 2:18 PM EST documented as of this encounter Care Teams Assembly Repairer Relationship Specialty Start Date End Date Joaquin Devine DO [address] [facility] [place] [address] PCP - General Family Medicine 07/06/23 documented as of this encounter
--- OUTSIDE RECORDS SUMMARY | 2025-02-20 15:21 | XMS_ITS | Encounter Summary ---
Author Organization [facility] Address [facility] [id number] [address] [place] [address] Care Team Providers Care Home Office Representative Name Role Phone Joaquin Devine Primary Care Provider [phone] Encounter Details Date Type Department Care Team (Late st Contact Info) Description 02/22/2024 Orders Only [facility] Internal Medicine - Family Medicine [address] [place] [phone] Ref Prov, [place] [address] Social History Tobacco Use Types Packs/Day Years Used Date Smoking Tobacco: Never Smokeless Tobacco: Never Alcohol Use Standard Drinks/Week Comments Not Currently 0 (1 standard drink = 0.6 oz pur e alcohol) [facility] Utilities Answer Date Recorded In the past 12 months has e electric, gas, oil, or water company threatened [...] often do you attend chur ch or zoroastrian services? More than 4 times per year 10/07/2023 Do you belong to any clubs o r organizations such as nondenominational groups, unions, fraternal or athletic groups, or [...] Answer Date Recorded Total Score 0 02/21/2024 [facility] of Occupat ional Health - Occupational [...] Do you need help finding a l al career center and/or a training program? No 10/07/2023 Hunger Screening Answer Date Recorded Within the past 12 months we worried whether our food would run out before we got money to buy more. Never True 02/21/2024 Within the past 12 months th e food we bought just didn't last and we didn't have money to get more. Never True 02/21/2024 Purpose - Life Answer Date Recorded I [...] - Family Medicine [address] [place] [address] Joaquin Devine DO [address], [facility] [place] [address] 10/11/2025 4:00 PM EDT Office Visit [facility] Internal Medicine - Family Medicine [address] [place] [address] documented as of this encounter Procedures Procedure Name Priority Date/Time Associated Diagnosis Comments DIABETES EYE EXAM Routine 06/11/2023 2:47 PM EST documented in this encounter Results * DIABETES EYE EXAM (06/11/2023 2:47 PM EST) us Not In System Ref Prov HEALTH MAINTENANCE Final Result MANUALLY TRANSCRIBED RESULTS documented in this encounter Visit Diagnoses Not on filedocumented in this encounter Additional Health Concerns Assessment Noted Time PHQ-9 Depression Total Score: 0 02/21/20 24 9:45 AM EDT A Body Mass Index follow-up plan has been documented for the patient 09/14/2023 3:11 PM EDT documented as of this encounter Care Teams Home Office Representative Relationship Specialty Start Date End Date Joaquin Devine DO [address] [place] [address] PCP - General Family Medicine 07/06/23 documented as of this encounter
--- OUTSIDE RECORDS SUMMARY | 2025-02-20 15:21 | XMS_ITS | Encounter Summary ---
Author Organization [facility] Address [address] [place] [address] Care Team Providers Care Starting Gate Driver Name Role Phone Joaquin Devine MD Primary Care Provider [phone] Encounter Details Date Type Department Care Team (Late st Contact Info) Description 10/19/2022 Abstract [facility] [address] [place] [phone] Helena King, DPM [address] [place], [place] [phone] Social History Tobacco Use Types Packs/Day Years Used Date Smoking Tobacco: Never Tobacco Cessation:Counseling Given: Not Answered Alcohol Use Standard Drinks/Week Comments Not Currently 0 (1 standard drink = 0.6 oz pur e alcohol) Comments Unknown Sex and Gender Information Value Date Recorded Sex Assigned at Not on file Legal Sex Female 7:09 PM EDT Gender Identity Not on file Sexual Orientation Not on file documented as of this encounter Plan of Treatment Not on file documented as of this encounter Visit Diagnoses Not on filedocumented in this encounter Care Teams Starting Gate Driver Relationship Specialty Start Date End Date Joaquin Devine MD PCP - General Family Medicine 10/15/22 documented as of this encounter
--- OUTSIDE RECORDS SUMMARY | 2025-02-20 15:21 | XMS_ITS | Encounter Summary ---
Author Organization [facility] [employer] Address [facility] [id number] [address] [place] [address] Care Team Providers Care Senior Insight Manager International Name Role Phone Joaquin Devine Primary Care Provider +1 [phone] Encounter Details Date Type Department Care Team (Late st Contact Info) Description 02/23/2024 Orders Only [facility] Internal Medicine - Family Medicine [address] [place] [address] Ref Prov, [place] [address] Social History Tobacco Use Types Packs/Day Years Used Date Smoking Tobacco: Never Smokeless Tobacco: Never Alcohol Use Standard Drinks/Week Comments Not Currently 0 (1 standard drink = 0.6 oz pur e alcohol) [facility] Utilities Answer Date Recorded In the [...] often do you attend chur ch or jewish services? More than 4 times per year 10/07/2023 Do you belong to any clubs o r organizations such as evangelical groups, unions, fraternal or athletic groups, or [...] Answer Date Recorded Total Score 0 02/21/2024 [facility] of Occupat ional Health - Occupational [...] - Family Medicine [address] [place] [address] Joaquin Devine, DO [address], [place] [address] 10/11/2025 4:00 PM EDT Office Visit [facility] - Family Medicine [address] [place] [address] documented as of this encounter Procedures Procedure Name Priority Date/Time Associated Diagnosis Comments DIABETES EYE EXAM Routine 06/11/2023 4:11 PM EST DIABETES EYE EXAM Routine 06/11/2023 4:10 PM EST documented in this encounter Results * DIABETES EYE EXAM (06/11/2023 4:11 PM EST) us Not In System Ref [facility] HEALTH MAINTENANCE Final Result Performing Organization Address [facility] de Phone Number MANUALLY TRANSCRIBED RESULTS * DIABETES EYE EXAM (06/11/2023 4:10 PM EST) us Not In System Ref [facility] HEALTH MAINTENANCE Final Result Performing Organization Address [facility] de Phone Number MANUALLY TRANSCRIBED RESULTS documented in this encounter Visit Diagnoses Not on filedocumented in this encounter Additional Health Concerns Assessment Noted Time PHQ-9 Depression Total Score: 0 02/21/20 9:45 AM EDT A Body Mass Index follow-up plan has been documented for the patient 09/14/2023 3:11 PM EDT documented as of this encounter Care Teams Senior Insight Manager International Relationship Specialty Start Date End Date Joaquin Devine DO [address], [facility] [place] [address] PCP - General Family Medicine 07/06/23 documented as of this encounter
--- OUTSIDE RECORDS SUMMARY | 2025-02-20 15:21 | XMS_ITS | Clinical Summary ---
Author Organization [facility] Address [address] [place] [address] Care Team Providers Care Audio Visual Specialist Name Role Phone Joaquin Devine MD Primary Care Provider Allergies Active Allergy Reactions Criticality Noted Date Comments Cefdinir Rash Low 10/01/2022 Lisinopril Cough 10/01/2022 Metformin Hcl Unknown 10/01/2022 Penicillin G Unknown 10/01/2022 Sulfamethoxazole-Trimethoprim Unknown 2022 Medications mometasone (Elocon) 0.1 % cream every 12 (twelve) hours. 1 Active Cholecalciferol (Vitamin D3) 200908 UNIT/GM powder Vitamin D3 1000 Acti ve amLODIPine (Norvasc) 5 MG tablet 1 (one) time each day at the same time. 0 Active ASPIRIN 81 MG chewable tablet 1 (one) time each day at the same time. Active atorvastatin (Lipitor) 20 MG tablet 1 (one) time each day at the same time. Active Calcium Carb-Cholecalci ferol (Caltrate 600+D3) 600-800 MG-UNIT tablet every 12 (twelve) hours. Active docusate sodium (Colace) 100 MG tablet 1 (one) time each day at the same time. Active fluorometholone (FML) 0.1 % ophthalmic suspension every 12 (twelve) hours. Active glimepiride (Amaryl) 1 MG tablet 1 (one) time each day at the same time. Active nystatin (Mycostatin) cream 1 application every 12 (twelve) hours. Active omeprazole (PriLOSEC) [address] capsule 1 (one) time each day at the same time. 0 Active pioglitazone (Actos) 15 MG tablet 1 (one) time each day at the same time. Active Meclizine HCl 25 MG chewable tablet Chew 25 mg 3 (three) times a day as needed. Active metFORMIN (Glucophage) 500 MG tablet Take 500 mg by mouth in the morning. Active meloxicam (Mobic) 7.5 MG tablet Take by mouth. Activ e apixaban (Eliquis) 5 MG tablet Take 5 mg by mouth in the morning and 5 mg before bedtime. Active Active Problems Problem Noted Date Diagnosed Date Age-related osteoporosis wit hout current pathological fracture 10/01/2022 Anxiety 10/01/2022 Benign essential hypertension 10/01/2022 Benign paroxysmal positional vertigo 10/01/2022 Chronic reactive otitis externa of both ears 03/2023 Contracture, right ankle 10/01/2022 Cruz's neuroma of right foot 10/01/2022 Psoriasis 10/01/2022 Scapular dyskinesis 10/01/2022 Sensorineural hearing loss (SNHL), bilateral 03/2023 Type 2 diabetes mellitus wit hout complication, without long-term current use of insulin 10/01/2022 Immunizations Immunization Administration Dates Next Due Influenza, High Dose Seasona l, Preservative Free 02/22/2020,02/06/2020,07/31/2019,05/21 Influenza, High-dose Seasona l, Quadrivalent, Preservative Free 05/06/2021 Influenza, Seasonal, Quadriv alent, Adjuvanted 03/15/2022 Influenza, Unspecified 02/24/2013 Pneumococcal Conjugate PCV 13 07/20/2014 Pneumococcal Polysaccharide PPSV23 08/02/2019, Tdap 10/15/2011 Family History Medical History Relation Name Comments Cancer Father Heart disease Father Cancer Mother Diabetes Mother Cancer Sibling Diabetes Sibling Heart disease Sibling Relation Name Status Comments Father Mother Sibling Social History Tobacco Use Types Packs/Day Years [...] Sign Reading Time Taken Comments Blood Pressure 124/76 03/09/2023 9:00 AM EDT Pulse - - Temperature - - Respiratory Rate - - Oxygen Saturation - - Inhaled Oxygen Concentration - - Weight 59.8 kg (131 lb 12.8 oz) 03/09/2023 9:00 AM EDT Height 154.9 cm (5' 1 ) 02/04/2023 11:0 4 AM EDT Body Mass Index 24.9 02/04/2023 11:04 AM EDT Plan of Treatment Health Maintenance Due Date Last Done Comments CT Colonography 1950 FIT-DNA 1950 FIT 1950 FOBT 1950 Sigmoidoscopy 1950 Mammogram 04/08/2024 04/08/2023, 08/23, 07/16/2020, Additional history exists Influenza Vaccine (#1) 2025 , 05/06/2021, 02/22/2020, Additional history exists Colonoscopy 03/26/2026 03/26/2016 Colorectal Cancer Screening 03/26/2026 Pneumococcal Vaccine: 65+ Years Completed 08/02/2019, 11/11/2017, 07/20/2014 Procedures Procedure Name Priority Date/Time Associated Diagnosis Comments MM TOMOSYNTHESIS DIAGNOSTIC BI 04/08/2023 2:26 PM EST COLONOSCOPY Routine 03/26/2016 12:00 PM EDT from Last 3 Months or Most Recently Relevant to Health Maintenance Results * MM TOMOSYNTHESIS DIAGNOSTIC BI (04/08/2023 2:26 PM EST) Anatomical Region Laterality Modality Other 04/08/2023 2:26 PM EST Narrative 04/08/2023 2:26 PM EST The [address] [address] Mammography Report Signed Patient: LASHAWN JONES MR#: [id number] : 1950 Acct:[id number] Age/Sex: 73 / F ADM Date: 04/08/23 Loc: MAMMO Attending Dr: Samson Narayan D.O. Ordering Physician: Samson Narayan D.O. Results: Date of Service: 04/08/23 Follow Up: Procedure(s): MM tomosynthesis diagnostic BI Accession Number(s): [id number] cc: Elisha James M.D.; Samson Narayan D.O. Patient Name: LASHAWN JONES MR#: [id number] : 1950 Exam Date: 04/08/2023 Ordering Doctor: DR Samson Narayan . RADIOLOGY REPORT PROCEDURE: MM TOMOSYNTHESIS DIAGNOSTIC BI, 04/08/2023, 13:43 US BREAST RT LIMITED, 04/08/2023, 13:58 COMPARISON: MG MAMM SCREEN 3D SALMA CAD, 09/22/2022. US BREAST RIGHT LIMITED, 10/05/2022. MG MAMM RT DIAG FU, 10/05/2022. INDICATIONS: BREAST LUMP RT BREAST N 63.11 Calculator Name NCI Breast Cancer Risk Assessment Tool 5 Year Breast Cancer Risk 1.40% Lifetime Breast Cancer Risk 3.80% Personal Breast Cancer No Personal Ovarian Cancer No Treatments None Family Cancers None LOCATION: The [facility] BREAST COMPOSITION: Heterogeneously dense,which may obscure small masses. FINDINGS: DIAGNOSTIC CATEGORY 2--BENIGN FINDING: The breasts are stable in size and overall fibroglandular configuration.Scattered benign-appearing calcifications are present. Scattered benign-appearing lymph nodes are present. RIGHT BREAST: No significant suspicious finding. [place] marker upper outer quadrant, mid breast indicates a palpable mass period no ultrasound or mammographic abnormality is observed. Ultrasound demonstrates at the 10 o'clock position a 2 mm area of anechoic echogenicity likely a tiny cyst. It is doubtful that this is palpable. Further evaluation should be based on clinical and physical exam LEFT BREAST: No significant suspicious finding. RECOMMENDATIONS: ROUTINE MAMMOGRAM AND CLINICAL EVALUATION IN 12 MONTHS. PLEASE NOTE: A NORMAL MAMMOGRAM DOES NOT EXCLUDE THE POSSIBILITY OF BREAST CANCER. A CLINICALLY SUSPICIOUS PALPABLE LUMP SHOULD BE BIOPSIED. Dictated by: Jarad Hooker MD on 04/08/2023 at 14:22 Approved by: Jarad Hooker MD on 04/08/2023 at 14:26 Dictated By: Jraad Hooker M.D. Signed By: 04/08/23 1427 DD/ 1426 TD/TT: Bullet Assembly Press Operator: Procedure Note Radiology, Radiologist, MD - 04/08/2023 [place] [address] Mammography Report Signed Patient: LASHAWN JONESMR#: [id number] : 1950cct:[id number] Age/Sex: 73 / FADM Date: 04/08/23 Loc: MAMMO Attending Dr: Samson Narayan D.O. Ordering Physician: Samson Narayan D.O.Results: Date of Service: 04/08/23Follow Up: Procedure(s): MM tomosynthesis diagnostic BI Accession Number(s): [id number] cc: Elisha James M.D.; Samson Narayan D.O. Patient Name: LASHAWN JONES MR#: [id number] : 1950 Exam Date: 04/08/2023 Ordering Doctor: DR Samson Narayan . RADIOLOGY REPORT PROCEDURE: MM TOMOSYNTHESIS DIAGNOSTIC BI, 04/08/2023, 13:43 US BREAST RT LIMITED, 04/08/2023, 13:58 COMPARISON: MG MAMM SCREEN 3D SALMA CAD, 09/22/2022. US BREAST RIGHT LIMITED, 10/05/2022. MG MAMM RT DIAG FU, 10/05/2022. INDICATIONS: BREAST LUMP RT BREAST N 63.11 Calculator Name NCI Breast Cancer Risk Assessment Tool 5 Year Breast Cancer Risk 1.40% Lifetime Breast Cancer Risk 3.80% Personal Breast Cancer No Personal Ovarian Cancer No Treatments None Family Cancers None LOCATION: [facility] BREAST COMPOSITION: Heterogeneously dense,which may obscure smallmasses. FINDINGS: DIAGNOSTIC CATEGORY 2--BENIGN FINDING: The breasts are stable in size and overall fibroglandular configuration.Scattered benign-appearing calcifications are present. Scattered benign-appearing lymph nodes are present. RIGHT BREAST: No significant suspicious finding. [place] marker upperouter quadrant, mid breast indicates a palpable mass period no ultrasound or mammographic abnormality is observed. Ultrasound demonstrates at the 10 o'clock position a 2 mm area of anechoic echogenicity likely a tiny cyst.It is doubtful that this is palpable. Further evaluation should be based on clinical and physical exam LEFT BREAST: No significant suspicious finding. RECOMMENDATIONS: ROUTINE MAMMOGRAM AND CLINICAL EVALUATION IN 12 MONTHS. PLEASE NOTE: A NORMAL MAMMOGRAM DOES NOT EXCLUDE THE POSSIBILITY OFBREAST CANCER. A CLINICALLY SUSPICIOUS PALPABLE LUMP SHOULD BE BIOPSIED. Dictated by: Jarad Hooker MD on 04/08/2023 at 14:22 Approved by: Jarad Hooker MD on 04/08/2023 at 14:26 Dictated By: Jarad Hooker M.D. Signed By:04/08/23 1427 DD/ 1426 TD/TT: Bullet Assembly Press Operator: Samson Narayan DO [facility] Final Result * Colonoscopy (03/26/2016 12:00 PM EDT) Anatomical Region Laterality Modality Endoscopy 03/26/2016 12:0 0 PM EDT Narrative 03/26/2016 12:00 PM EDT PERFORMED AT [facility] LOCATION:[id number] Procedure Note CONVERSION, GENERIC - 10/08/2022 PERFORMED AT [facility] LOCATION:[id number] Adilene Escobedo MD ENDOSCOPY PROCEDURE ORDERABLES F inal Result from Last 3 Months or Most Recently Relevant to Health Maintenance Insurance [employer] MEDICARE ADVANTAGE Care Teams Audio Visual Specialist Relationship Specialty Start Date End Date Joaquin Devine MD PCP - General Family Medicine 10/15/22
--- OUTSIDE RECORDS SUMMARY | 2025-02-20 15:21 | XMS_ITS | Encounter Summary ---
Author Organization [facility] Address [id number] [address] [place] [address] Care Team Providers Care Ivory Carver Name Role Phone Joaquin Devine Primary Care Provider [phone] Encounter Details Date Type Department Care Team (Late st Contact Info) Description 12/21/2023 [facility] - Family Medicine [address] [place] [phone] Ref Prov, [place] [address] Social History Tobacco Use Types Packs/Day Years Used Date Smoking Tobacco: Never Smokeless Tobacco: Never Alcohol Use Standard Drinks/Week Comments Not Currently 0 (1 standard drink = 0.6 oz pur e alcohol) [facility] Utilities Answer Date Recorded In the [...] any clubs o r organizations such as confucianist groups, unions, fraternal or athletic groups, or [...] Answer Date Recorded Total Score 0 11/09/2023 [facility] of Occupat ional Health - Occupational Stress [...] - Family Medicine [address] [place] [place] [address] Joaquin Devine, DO [address], [place] [address] 10/11/2025 4:00 PM EDT Office Visit [facility] Internal Medicine - Family Medicine [address] [place] [address] documented as of this encounter Procedures Procedure Name Priority Date/Time Associated Diagnosis Comments [employer], RETROPERITNL [employer], LTD Routine 2023 8:13 AM EDT URINE CULTURE Routine 12/15/2023 9:09 AM EDT URINE CULTURE Routine 12/15/2023 8:10 AM EDT documented in this encounter Results * US, RETROPERITNL ABD, LTD (12/17/2023 8:13 AM EDT) us Not In System Ref Prov PROCEDURE/MINOR SURGICAL ORDERABLES Final Result Performing Organization Address [facility] Co de Phone Number MANUALLY TRANSCRIBED RESULTS * Urine Culture (12/15/2023 9:09 AM EDT) Urine us Not In System Ref Prov MICROBIOLOGY - GENERAL OR DERABLES Final Result Performing Organization Address City/[facility]/ZIP Co de Phone Number MANUALLY TRANSCRIBED RESULTS * Urine Culture (12/15/2023 8:10 AM EDT) Urine us Not In System Ref Prov MICROBIOLOGY - GENERAL OR DERABLES Final Result MANUALLY TRANSCRIBED RESULTS documented in this encounter Visit Diagnoses Not on filedocumented in this encounter Additional Health Concerns Assessment Noted Time PHQ-9 Depression Total Score: 0 11/09/19 3:57 PM EDT A Body Mass Index follow-up plan has been documented for the patient 09/14/2023 3:11 PM EDT documented as of this encounter Care Teams Ivory Carver Relationship Specialty Start Date End Date Joaquin Devine DO [address], [facility] [place] [place] [address] PCP - General Family Medicine 07/06/23 documented as of this encounter
--- OUTSIDE RECORDS SUMMARY | 2025-02-20 15:21 | XMS_ITS | Encounter Summary ---
Author Organization [facility] Address [id number] [address] [place] [address] Care Team Providers Care Production Line Mechanic Name Role Phone CheriJoaquin chung Charlotte VELASQUEZ Primary Care Provider [phone] Encounter Details Date Type Department Care Team (Late st Contact Info) Description 08/29/2024 [facility] [address] [place] [phone] Werner Gamez CMA Social History Tobacco Use Types Packs/Day Years Used Date Smoking Tobacco: Never Smokeless Tobacco: Never Alcohol Use Standard Drinks/Week Comments Not Currently 0 (1 standard drink = 0.6 oz pur e alcohol) [facility] Utilities Answer Date Recorded In the past 12 months has [employer], gas, oil, or water [employer] threatened to shut off services in your [...] often do you attend chur ch or caodaism services? More than 4 times per year 10/07/2023 Do you belong to any clubs o r organizations such as oriental orthodox groups, unions, fraternal or athletic groups, or [...] Answer Date Recorded Total Score 0 02/21/2024 [facility] of Occupat ional Health - Occupational Stress [...] Telephone Encounter - Werner Gamez CMA - 08/29/2024 1:51 PM EDT I called pt and got her scheduled for a Colonoscopy on September 27 at 1000 told to arrive at 0900. Pt wasgiven instructions and her pharmacy is listed and correct. Dr Devine pt this is a screening * Telephone Encounter - Chong Cueva DO - 08/29/2024 1:51 PM EDT Message noted. H&P done Rx Suprep sent to pharmacy documented in this encounter Plan of Treatment Upcoming Encounters Date Type Department Care Team (Late st Contact Info) Description 02/21/2025 8:30 AM EDT Office Visit [facility] Internal Medicine - Family Medicine [address] [place] [address] Joaquin Devine DO [address] [facility] [address] 10/11/2025 4:00 PM EDT Office Visit [facility] Internal Medicine - Family Medicine [address] [place] [address] documented as of this encounter Visit Diagnoses Not on filedocumented in this encounter Additional Health Concerns Assessment Noted Time PHQ-9 Depression Total Score: 0 02/21/20 24 9:45 AM EDT A Body Mass Index follow-up plan has been documented for the patient 09/14/2023 3:11 PM EDT documented as of this encounter Care Teams Production Line Mechanic Relationship Specialty Start Date End Date Joaquin Devine DO [address], [facility] [address] PCP - General Family Medicine 07/06/23 documented as of this encounter
--- OUTSIDE RECORDS SUMMARY | 2025-02-20 15:21 | XMS_ITS | Encounter Summary ---
Author Organization [facility] Address [id number] [address] [place] [address] Care Team Providers Care Floral Clerk Name Role Phone Nilson Joaquin Charlotte VELASQUEZ Primary Care Provider [phone] Encounter Details Date Type Department Care Team (Late st Contact Info) Description 02/24/2024 Telephone [facility] Internal Medicine - Family Medicine [address] [place] [phone] Suki Lmobardi CMA Social History Tobacco Use Types Packs/Day Years Used Date Smoking Tobacco: Never Smokeless Tobacco: Never Alcohol Use Standard Drinks/Week Comments Not Currently 0 (1 standard drink = 0.6 oz pur e alcohol) [facility] Utilities Answer Date Recorded In the past 12 months has [employer], gas, oil, or water [employer] threatened to shut off services in your [...] often do you attend chur ch or islam services? More than 4 times per year 10/07/2023 Do you belong to any clubs o r organizations such as yazidism groups, unions, fraternal or athletic groups, or [...] Answer Date Recorded Total Score 0 02/21/2024 [facility] of Occupat ional Health - Occupational Stress [...] encounter Miscellaneous Notes * Telephone Encounter - Suki Lombardi CMA - 02/24/2024 1:03 PM EDT Pharmacy called wanted to now if you were going to send over an order for lancets as well ? If so she said be spacific about the directions and a diagnosis code documented in this encounter Plan of Treatment Upcoming Encounters Date Type Department Care Team (Late st Contact Info) Description 02/21/2025 8:30 AM EDT Office Visit [facility] Internal Medicine - Family Medicine [address] [place] [address] Joaquin Devine DO [address] [facility] [place] [address] 10/11/2025 4:00 PM EDT Office Visit [facility] Internal Medicine - Family Medicine [address] [place] [address] documented as of this encounter Visit Diagnoses Not on filedocumented in this encounter Additional Health Concerns Assessment Noted Time PHQ-9 Depression Total Score: 0 02/21/20 24 9:45 AM EDT A Body Mass Index follow-up plan has been documented for the patient 09/14/2023 3:11 PM EDT documented as of this encounter Care Teams Floral Clerk Relationship Specialty Start Date End Date Joaquin Devine DO [address] [facility] [place] [place] [address] PCP - General Family Medicine 07/06/23 documented as of this encounter
--- OUTSIDE RECORDS SUMMARY | 2025-02-20 15:21 | XMS_ITS | Patient Health Record ---
Author Organization [facility] [place] Address [address] [place] [address] Care Team Providers Care Water/Wastewater Project Manager Name Role Phone Joaquin Devine DO Primary Care Provider Unavail able Reason For Referral No Information Medications Medication SIG (Take, Route, Frequency, Duration) Notes Start Date End Date Status Stool Softener 100 MG 1 capsule as neede d Orally Once a day; Duration: 30 day(s) Active Caltrate 600+D 600-800 MG-UNIT 1 tablet with a meal Orally Once a day; Duration: 30 day(s) Active metFORMIN HCl 500 MG 1 tablet with a kyle l Orally Once a day; Duration: 30 day(s) Active Atorvastatin Calcium 40 MG 1 tablet Oral ly Once a day; Duration: 30 day(s) Active Alendronate Sodium 70 MG 1 tablet Orally ; Duration: 30 day(s) Active Meclizine HCl 25 MG 1 tablet as needed O rally Once a day; Duration: 30 day(s) Active Losartan Potassium 50 MG 1 tablet Orally Once a day; Duration: 30 day(s) Active Flonase 50 MCG/ACT 2 sprays in each nos tril Nasally Once a day; Duration: 30 day(s) 03/01/2018 Active Social History Tobacco Use: Social History Observation Description Date Details (start date - stop date) Never Smoker NA - NA Tobacco Use/Smoking Question Answer Notes Patient is a nonsmoker Problems Problem Type SNOMED Code ICD Code Onset Dates Problem Status W/U Status Risk Notes Problem Obstructive sleep apnea syndrome (34927767) LESVIA (obstructive sleep apnea) (G47.33) Active confirmed Problem Sensorineural hearing loss, bilateral (528523373) Sensorineural hearing loss (SNHL) of both ears (H90.3) Active confirmed Plan Of Treatment No Information Insurance Providers Payer Name Payer Address Payer Phone Subscriber Number Group Number Insured Name Patient Relationship to Insured Coverage Start Date Coverage End Date [employer] MEDICARE ADV PLAN [address] [address] [place] [address] [id number] Jamir Jones Self - patient is the insured 8 Medical (General) History Medical History History ICD Code 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
--- OUTSIDE RECORDS SUMMARY | 2025-02-20 15:21 | XMS_ITS | Encounter Summary ---
Author Organization [facility] Address [address] [place] [address] Care Team Providers Care China Decorator Name Role Phone Joaquin Devine MD Primary Care Provider [phone] Encounter Details Date Type Department Care Team (Late st Contact Info) Description 03/18/2023 Clinisync Result Encounter [facility] External Department Unsolicited Dabry Narayan, DO [address] [place] [address] Social History Tobacco Use Types Packs/Day Years Used Date Smoking Tobacco: Never Alcohol Use Standard Drinks/Week Comments [...] on file documented as of this encounter Procedures Procedure Name Priority Date/Time Associated Diagnosis Comments US PELVIS W/ TRANSVAGINAL 03/18/2023 7:37 AM EDT documented in this encounter Results * US PELVIS W/ TRANSVAGINAL (03/18/2023 7:37 AM EDT) Anatomical Region Laterality Modality Other 03/18/2023 7:3 7 AM EDT Narrative 03/18/2023 7:37 AM EDT The [address] [address] Ultrasound Report Signed Patient: LASHAWN JONES MR#: [id number] : 1950 Acct:[id number] Age/Sex: 73 / F ADM Date: 03/17/23 Loc: US Attending Dr: Darby Narayan D.O. Ordering Physician: Darby Narayan D.O. Date of Service: 03/17/23 Procedure(s): US pelvis w/ transvaginal Accession Number(s): [id number] cc: Elisha James M.D.; Darby Narayan D.O. The [place] [address] Patient Name: LASHAWN JONES MRN: [facility]:[id number] date: 1950 Sex: F Assigned Patient Location: US Current Patient Location: Accession/Order Number: [id number] Exam Date: 03/17/2023 12:58 Report Date: 03/18/2023 07:37 At the request of: DARBY NARAYAN Procedure: US pelvis w/ transvaginal EXAM: US pelvis w/ transvaginal HISTORY: PELVIC PAIN COMPARISON: None. TECHNIQUE: Transabdominal pelvic sonography was performed utilizing grayscale and color Doppler technique. FINDINGS: As below. US/US pelvis w/ transvaginal IMPRESSION: 1. Hysterectomy. 2. Ovaries not visualized. No adnexal masses. 3. No significant free fluid. Electronically authenticated by: KP QUINTERO Date: 03/18/2023 07:37 Dictated By: Kp Quintero Signed By: 03/18/2340 DD/ TD/TT: Scheduling Specialist: Procedure Note Radiology, Radiologist, MD - 03/18/2023 [place] [address] Ultrasound Report Signed Patient: LASHAWN JONESMR#: [id number] : 1950cct:[id number] Age/Sex: 73 / FADM Date: 03/17/23 Loc: US Attending Dr: Darby Narayan D.O. Ordering Physician: Darby Narayan D.O. Date of Service: 03/17/23 Procedure(s): US pelvis w/ transvaginal Accession Number(s): [id number] cc: Elisha James M.D.; Darby Narayan D.O. [place] [address] Patient Name: LASHAWN JONES MRN: [facility]:[id number] date: 1950 Sex: F Assigned Patient Location: US Current Patient Location: Accession/Order Number: [id number] Exam Date: 03/17/2023 12:58 Report Date: 03/18/2023 07:37 At the request of: DARBY NARAYAN Procedure: US pelvis w/ transvaginal EXAM: US pelvis w/ transvaginal HISTORY: PELVIC PAIN COMPARISON: None. TECHNIQUE: Transabdominal pelvic sonography was performed utilizinggrayscale and color Doppler technique. FINDINGS: As below. US/US pelvis w/ transvaginal IMPRESSION: 1. Hysterectomy. 2. Ovaries not visualized. No adnexal masses. 3. No significant free fluid. Electronically authenticated by: KP QUINTERO Date: 03/18/2023 07:37 Dictated By: Kp Quintero Signed By:03/18/23739 DD/ 6 TD/TT: Scheduling Specialist: us Darby Narayan DO [facility] Final Result documented in this encounter Visit Diagnoses Not on filedocumented in this encounter Care Teams China Decorator Relationship Specialty Start Date End Date Joaquin Devine MD PCP - General Family Medicine 10/15/22 documented as of this encounter
--- OUTSIDE RECORDS SUMMARY | 2025-02-20 15:21 | XMS_ITS | Encounter Summary ---
Author Organization [employer] Address [id number] [address] [place] [address] Care Team Providers Care Alteration Tailor Apprentice Name Role Phone CheriJoaquin chung Charlotte VELASQUEZ Primary Care Provider [phone] Encounter Details Date Type Department Care Team (Late st Contact Info) Description 07/07/2024 Telephone [facility] Internal Medicine - Family Medicine [address] [place] [phone] Suki Lombardi CMA Social History Tobacco Use Types Packs/Day Years Used Date Smoking Tobacco: Never Smokeless Tobacco: Never Alcohol Use Standard Drinks/Week Comments Not Currently 0 (1 standard drink = 0.6 oz pur e alcohol) [facility] Utilities Answer Date Recorded In the past 12 months has [employer], gas, oil, or water [employer] threatened to shut off services in your [...] often do you attend chur ch or advent services? More than 4 times per year 10/07/2023 Do you belong to any clubs o r organizations such as gnosticism groups, unions, fraternal or athletic groups, or [...] Answer Date Recorded Total Score 0 02/21/2024 [facility] [place] of Occupat ional Health - Occupational Stress [...] Telephone Encounter - Suki Lombardi CMA - 07/07/2024 10:20 AM EST ----- Message from Dr. Joaquin Devine DO sent at 07/07/2024 9:42 AM EST ----- Her A1c was high at 8.1%. I would encourage her to take that 2nd dose of metformin if she toleratesit. It should not cause hypoglycemia of any significance with an A1c of 8.1%. Her average glucose is 186. Her lipid panel was great. She can stay on the reduced dose of atorvastatin but it is doing a really good job. Her total cholesterol improved from 234 to 182. Her triglycerides are also now normal at 139. They were 418. Her liver tests are fine. Her kidney tests are also normal. The medications not seem to be affecting her organs. * Telephone Encounter - Suki Lombardi CMA - 07/07/2024 10:20 AM EST Called pt read msg , she will increase her metformin , to a second dose . documented in this encounter Plan of Treatment Upcoming Encounters Date Type Department Care Team (Late st Contact Info) Description 02/21/2025 8:30 AM EDT Office Visit [facility] Internal Medicine - Family Medicine [address] [place] [address] Joaquin Devine DO [address], [facility] [place] [address] 10/11/2025 4:00 PM EDT Office Visit [facility] Internal Medicine - Family Medicine [address] [place] [address] documented as of this encounter Visit Diagnoses Not on filedocumented in this encounter Additional Health Concerns Assessment Noted Time PHQ-9 Depression Total Score: 0 02/21/20 9:45 AM EDT A Body Mass Index follow-up plan has been documented for the patient 09/14/2023 3:11 PM EDT documented as of this encounter Care Teams Alteration Tailor Apprentice Relationship Specialty Start Date End Date Joaquin Devine DO [address], [facility] [place] [address] PCP - General Family Medicine 07/06/23 documented as of this encounter
--- OUTSIDE RECORDS SUMMARY | 2025-02-20 15:21 | XMS_ITS | Encounter Summary ---
Author Organization [facility] [employer] [facility] [employer] Address [id number] [address] [place] [address] Care Team Providers Care Physician President Name Role Phone Joaquin Devine Primary Care Provider [phone] Encounter Details Date Type Department Care Team (Late st Contact Info) Description 03/29/2024 Orders Only [facility] Internal Medicine - Family Medicine [address] [place] [phone] Ref Prov, [place] [address] Social History Tobacco Use Types Packs/Day Years Used Date Smoking Tobacco: Never Smokeless Tobacco: Never Alcohol Use Standard Drinks/Week Comments Not Currently 0 (1 standard drink = 0.6 oz pur e alcohol) [facility] Utilities Answer Date Recorded In the [...] often do you attend chur ch or sabianist services? More than 4 times per year 10/07/2023 Do you belong to any clubs o r organizations such as roman catholic groups, unions, fraternal or athletic groups, or [...] Answer Date Recorded Total Score 0 02/21/2024 [facility] of Occupat ional Health - Occupational [...] - Family Medicine [address] [place] [address] Joaquin Devine DO [address] [facility] [address] 10/11/2025 4:00 PM EDT Office Visit [facility] Internal Medicine - Family Medicine [address] [place] [address] documented as of this encounter Procedures Procedure Name Priority Date/Time Associated Diagnosis Comments XR ABDOMEN AP 1 VW Routine 03/28/2024 7:29 AM EST documented in this encounter Results * X-ray abdomen ap 1 view (03/28/2024 7:29 AM EST) Anatomical Region Laterality Modality Body, Abdomen N/A Computed Radiogr aphy us Not In System Ref Prov IMG DIAGNOSTIC IMAGING OR DERABLES Final Result documented in this encounter Visit Diagnoses Not on filedocumented in this encounter Additional Health Concerns Assessment Noted Time PHQ-9 Depression Total Score: 0 02/21/20 24 9:45 AM EDT A Body Mass Index follow-up plan has been documented for the patient 09/14/2023 3:11 PM EDT documented as of this encounter Care Teams Physician President Relationship Specialty Start Date End Date Joaquin Devine DO [address] [facility], [facility] [address] PCP - General Family Medicine 07/06/23 documented as of this encounter
--- OUTSIDE RECORDS SUMMARY | 2025-02-20 15:21 | XMS_ITS | Encounter Summary ---
Author Organization [facility] Address [address] [place] [address] Care Team Providers Care Visual Basic Programmer Name Role Phone Joaquin Devine MD Primary Care Provider [phone] Encounter Details Date Type Department Care Team (Late st Contact Info) Description 04/08/2023 Clinisync Result Encounter [facility] External Department Unsolicited Samson Narayan, DO [address] [place] [address] Social History Tobacco Use Types [...] TOMOSYNTHESIS DIAGNOSTIC BI 04/08/2023 2:26 PM EST documented in this encounter Results * MM TOMOSYNTHESIS DIAGNOSTIC BI (04/08/2023 2:26 PM EST) Anatomical Region Laterality Modality Other 04/08/2023 2:26 PM EST Narrative 04/08/2023 2:26 PM EST The [address] [address] Mammography Report Signed Patient: LASHAWN JONES MR#: [id number] : 1950 Acct:[id number] Age/Sex: 73 / F ADM Date: 04/08/23 Loc: MAMMO Attending Dr: Samson Narayan D.O. Ordering Physician: Samson Narayan D.O. Results: Date of Service: 04/08/23 Follow Up: Procedure(s): MM tomosynthesis diagnostic BI Accession Number(s): [id number] cc: Elisha James M.D.; Samson Narayan D.O. Patient Name: LASHAWN JONES MR#: [id number] : 1950 Exam Date: 04/08/2023 Ordering Doctor: [...] Treatments None Family Cancers None LOCATION: The [facility] BREAST COMPOSITION: Heterogeneously dense,which may obscure small masses. FINDINGS: DIAGNOSTIC CATEGORY 2--BENIGN FINDING: The breasts are stable in size and overall fibroglandular configuration.Scattered benign-appearing calcifications are present. Scattered benign-appearing lymph nodes are present. RIGHT BREAST: No significant suspicious finding. [place] marker upper outer quadrant, mid breast indicates [...] 14:26 Dictated By: Jarad Hooker M.D. Signed By: 04/08/23 1427 DD/ 25 TD/TT: Housekeeper: Procedure Note Radiology, Radiologist, - 04/08/2023 [place] [address] Mammography Report Signed Patient: LASHAWN JONESMR#: [id number] : 1950cct:[id number] Age/Sex: 73 / FADM Date: 04/08/23 Loc: MAMMO Attending Dr: Samson Narayan D.O. Ordering Physician: Samson Narayan D.O.Results: Date of Service: 04/08/23Follow Up: Procedure(s): MM tomosynthesis diagnostic BI Accession Number(s): [id number] cc: Elisha James M.D.; Samson Narayan D.O. Patient Name: LASHAWN JONES MR#: [id number] : 1950 Exam Date: 04/08/2023 Ordering Doctor: [...] Treatments None Family Cancers None LOCATION: [facility] BREAST COMPOSITION: Heterogeneously dense,which may obscure smallmasses. FINDINGS: DIAGNOSTIC CATEGORY 2--BENIGN FINDING: The breasts are stable in size and overall fibroglandular configuration.Scattered benign-appearing calcifications are present. Scattered benign-appearing lymph nodes are present. RIGHT BREAST: No significant suspicious finding. [place] marker upperouter quadrant, mid breast indicates a [...] Jarad Hooker M.D. Signed By:04/08/23 1427 DD/ 25 TD/TT: Housekeeper: us Samson Helene DO [facility] Final Result documented in this encounter Visit Diagnoses Not on filedocumented in this encounter Care Teams Visual Basic Programmer Relationship Specialty Start Date End Date Joaquin Devine MD PCP - General Family Medicine 10/15/22 documented as of this encounter
--- OUTSIDE RECORDS SUMMARY | 2025-02-20 15:21 | XMS_ITS | Encounter Summary ---
Author Organization [facility] [employer] Address [id number] [address] [place] [address] Care Team Providers Care Manager Aerospace Name Role Phone Joaquin Devine DO Primary Care Provider [phone] Encounter Details Date Type Department Care Team (Late st Contact Info) Description 04/11/2024 Orders Only [facility] Internal Medicine - Family Medicine [address] [place] [address] Joaquin Devine DO [address], [place] [address] Social History Tobacco Use Types Packs/Day Years Used Date Smoking Tobacco: Never Smokeless Tobacco: Never Alcohol Use Standard Drinks/Week Comments Not Currently 0 (1 standard drink = 0.6 oz pur e alcohol) [facility] Utilities Answer Date Recorded In the past 12 months has [email or web address], gas, oil, or water [employer] threatened to shut off services in your [...] any clubs o r organizations such as mosque groups, unions, fraternal or athletic groups, or [...] Recorded Do you need help finding a [facility] and/or a training program? No [...] - Family Medicine [address] [place] [address] Joaquin Devine DO [address], [facility] [place] [address] 10/11/2025 4:00 PM EDT Office Visit [facility] Internal Medicine - Family Medicine [address] [place] [address] documented as of this encounter Procedures Procedure Name Priority Date/Time Associated Diagnosis Comments XR SPINE CERVICAL 3 VWS OR LESS Routine 04/10/2024 9:28 AM EST documented in this encounter Results * X-ray spine cervical 3 views or less (04/10/2024 9:28 AM EST) Anatomical Region Laterality Modality MSK, Neuro, Spine, C-spine N/A Compu phill Radiography us Not In System Ref Prov IMG [...] as of this encounter Care Teams Manager Aerospace Relationship Specialty Start Date End Date Joaquin Devine DO [address] [facility] [place] [address] PCP - General Family Medicine 07/06/23 documented as of this encounter
--- OUTSIDE RECORDS SUMMARY | 2025-02-20 15:21 | XMS_ITS | Encounter Summary ---
Author Organization [facility] Address [address] [place] [address] Care Team Providers Care Art Historian Name Role Phone Joaquin Devine MD Primary Care Provider [phone] Encounter Details Date Type Department Care Team (Late st Contact Info) Description 04/08/2023 Clinisync Result Encounter [facility] External Department Unsolicited Samson Narayan, DO [address] [place] [address] Social History Tobacco Use Types [...] Procedure Name Priority Date/Time Associated Diagnosis Comments BI US BREAST LIMITED RIGHT 04/08/2023 2:26 PM EST documented in this encounter Results * Right breast US limited (04/08/2023 2:26 PM EST) Anatomical Region Laterality Modality Breast Right Ultrasound 04/08/2023 2:26 PM EST Narrative 04/08/2023 2:26 PM EST The [address] [address] Ultrasound Report Signed Patient: LASHAWN JONES MR#: [id number] : 1950 Acct:[id number] Age/Sex: 73 / F ADM Date: 04/08/23 Loc: MAMMO Attending Dr: Samson Narayan D.O. Ordering Physician: Samson Narayan D.O. Date of Service: 04/08/23 Procedure(s): US breast RT limited Accession Number(s): [id number] cc: Elisha James M.D.; Samson Narayan D.O. Patient Name: LASHAWN JONES MR#: [id number] : 1950 Exam Date: 04/08/2023 Ordering Doctor: [...] Treatments None Family Cancers None LOCATION: [facility] BREAST COMPOSITION: Heterogeneously dense,which may obscure small masses. FINDINGS: DIAGNOSTIC CATEGORY 2--BENIGN FINDING: The breasts are stable in size and overall fibroglandular configuration.Scattered benign-appearing calcifications are present. Scattered benign-appearing lymph nodes are present. RIGHT BREAST: No significant suspicious finding. [place] marker upper outer quadrant, mid breast indicates [...] Signed By: 04/08/23 1427 DD/ 1426 TD/TT: Mothercraft Nurse: Procedure Note Radiology, Radiologist, MD - 04/08/2023 [place] [address] Ultrasound Report Signed Patient: LASHAWN JOENSMR#: [id number] : 1950cct:[id number] Age/Sex: 73 / FADM Date: 04/08/23 Loc: MAMMO Attending Dr: Samson Narayan D.O. Ordering Physician: Samson Narayan D.O. Date of Service: 04/08/23 Procedure(s): US breast RT limited Accession Number(s): [id number] cc: Elisha James M.D.; Samson Narayan D.O. Patient Name: LASHAWN JONES MR#: [id number] : 1950 Exam Date: 04/08/2023 Ordering Doctor: [...] Treatments None Family Cancers None LOCATION: [facility] BREAST COMPOSITION: Heterogeneously dense,which may obscure smallmasses. FINDINGS: DIAGNOSTIC CATEGORY 2--BENIGN FINDING: The breasts are stable in size and overall fibroglandular configuration.Scattered benign-appearing calcifications are present. Scattered benign-appearing lymph nodes are present. RIGHT BREAST: No significant suspicious finding. [place] marker upperouter quadrant, mid breast indicates a [...] Jarad Hooker M.D. Signed By:04/08/23 1427 DD/ 142 TD/TT: Mothercraft Nurse: us Samson Helene DO IMG US PROCEDURES Final Result documented in this encounter Visit Diagnoses Not on filedocumented in this encounter Care Teams Art Historian Relationship Specialty Start Date End Date Joaquin Devine MD PCP - General Family Medicine 10/15/22 documented as of this encounter
--- OUTSIDE RECORDS SUMMARY | 2025-02-20 15:21 | XMS_ITS | Encounter Summary ---
Author Organization [facility] Address [facility][id number] [address] [place] [address] Care Team Providers Care Federal Agent Name Role Phone Joaquin Devine Primary Care Provider + [phone] Encounter Details Date Type Department Care Team (Late st Contact Info) Description 03/28/2024 Orders Only [facility] Internal Medicine - Family Medicine [address] [place] [address] Ref Prov, [place] [address] Social History Tobacco Use Types Packs/Day Years Used Date Smoking Tobacco: Never Smokeless Tobacco: Never Alcohol Use Standard Drinks/Week Comments Not Currently 0 (1 standard drink = 0.6 oz pur e alcohol) [facility] Utilities Answer Date Recorded In the [...] often do you attend chur ch or voodoo services? More than 4 times per year 10/07/2023 Do you belong to any clubs o r organizations such as mormon groups, unions, fraternal or athletic groups, or [...] Answer Date Recorded Total Score 0 02/21/2024 [facility] of Occupat ional Health - Occupational Stress [...] - Family Medicine [address] [place] [address] Joaquin Devine DO [address], [facility] [place] [address] 10/11/2025 4:00 PM EDT Office Visit [facility] Internal Medicine - Family Medicine [address] [place] [address] documented as of this encounter Procedures Procedure Name Priority Date/Time Associated Diagnosis Comments US, RETR[employer] Routine 2023 10:52 AM EST documented in this encounter Results * US, RETROPER[employer]NL [employer] (03/28/2024 10:52 AM EST) us Not In System Ref Prov PROCEDURE/MINOR SURGICAL ORDERABLES Final Result MANUALLY TRANSCRIBED RESULTS documented in this encounter Visit Diagnoses Not on filedocumented in this encounter Additional Health Concerns Assessment Noted Time PHQ-9 Depression Total Score: 0 02/21/20 24 9:45 AM EDT A Body Mass Index follow-up plan has been documented for the patient 09/14/2023 3:11 PM EDT documented as of this encounter Care Teams Federal Agent Relationship Specialty Start Date End Date Joaquin Devine DO [address], [place] [address] PCP - General Family Medicine 07/06/23 documented as of this encounter
--- OUTSIDE RECORDS SUMMARY | 2025-02-20 15:21 | XMS_ITS | Encounter Summary ---
Author Organization [facility] [employer] Address [id number] [address] [place] [address] Care Team Providers Care Water Plant Maintenance Mechanic Name Role Phone CheriJoaquin chung Primary Care Provider [phone] Encounter Details Date Type Department Care Team (Late st Contact Info) Description 12/16/2023 Orders Only [facility] Internal Medicine - Family Medicine [address] [place] [address] External, Scanning Provider Social History Tobacco Use Types Packs/Day Years Used Date Smoking Tobacco: Never Smokeless Tobacco: Never Alcohol Use Standard Drinks/Week Comments Not Currently 0 (1 standard drink = 0.6 oz pur e alcohol) [facility] Utilities Answer Date Recorded In the past 12 months has [employer], gas, oil, or water [employer] threatened to shut off services in your [...] often do you attend chur ch or adventism services? More than 4 times [...] Answer Date Recorded Total Score 0 11/09/2023 [facility] of Occupat ional Health - Occupational Stress [...] Medicine - Family Medicine [address] [place] [address] Joaquin Devine DO [address] [facility] [address] 10/11/2025 4:00 PM EDT Office Visit [facility] Internal Medicine - Family Medicine [address] [place] [address] documented as of this encounter Procedures Procedure Name Priority Date/Time Associated Diagnosis Comments URINALYSIS Routine 12/15/2023 10:41 AM EDT documented in this encounter Results * Urinalysis (12/15/2023 10:41 AM EDT) us Scanning Provider External URINE ORDERABLES Tamara l Result MANUALLY TRANSCRIBED RESULTS documented in this encounter Visit Diagnoses Not on filedocumented in this encounter Additional Health Concerns Assessment Noted Time PHQ-9 Depression Total Score: 0 11/09/19 3:57 PM EDT A Body Mass Index follow-up plan has been documented for the patient 09/14/2023 3:11 PM EDT documented as of this encounter Care Teams Water Plant Maintenance Mechanic Relationship Specialty Start Date End Date Joaquin Devine DO [address], [place] [address] PCP - General Family Medicine 07/06/23 documented as of this encounter
--- OUTSIDE RECORDS SUMMARY | 2025-02-20 15:21 | XMS_ITS | Encounter Summary ---
Author Organization [employer] Address [id number] [address] [place] [address] Care Team Providers Care Car Dealer Name Role Phone CheriJoaquin chung Charlotte VELASQUEZ Primary Care Provider [phone] Encounter Details Date Type Department Care Team (Late st Contact Info) Description 07/06/2024 [facility] [address] [place] [phone] Werner Gamez CMA Social History Tobacco Use Types Packs/Day Years Used Date Smoking Tobacco: Never Smokeless Tobacco: Never Alcohol Use Standard Drinks/Week Comments Not Currently 0 (1 standard drink = 0.6 oz pur e alcohol) [facility] Utilities Answer Date Recorded In the past 12 months has [employer], gas, oil, or water [employer] threatened to shut off services in your [...] often do you attend chur ch or protestant services? More than 4 times per year 10/07/2023 Do you belong to any clubs o r organizations such as alevism groups, unions, fraternal or athletic groups, or [...] Answer Date Recorded Total Score 0 02/21/2024 [facility] [place] of Occupat ional Health - Occupational Stress [...] encounter Miscellaneous Notes * Telephone Encounter - Wenrer Gamez CMA - 07/06/2024 11:49 AM EST Called and left message to get her Colonoscopy scheduled. documented in this encounter Plan of Treatment Upcoming Encounters Date Type Department Care Team (Late st Contact Info) Description 02/21/2025 8:30 AM EDT Office Visit [facility] Internal Medicine - Family Medicine [address] [place] [address] Joaquin Devine DO [address] [facility] [address] 10/11/2025 4:00 PM EDT Office Visit [facility] - Family Medicine [address] [place] [address] documented as of this encounter Visit Diagnoses Not on filedocumented in this encounter Additional Health Concerns Assessment Noted Time PHQ-9 Depression Total Score: 0 02/21/20 9:45 AM EDT A Body Mass Index follow-up plan has been documented for the patient 09/14/2023 3:11 PM EDT documented as of this encounter Care Teams Car Dealer Relationship Specialty Start Date End Date Joaquin Devine DO [address] [facility] [place] [address] PCP - General Family Medicine 07/06/23 documented as of this encounter
== END 2025-02-20 15:18 | disposition home or self-care (01) ==
LOC: US 15:18
PROVIDERS: PCP Family Medicine; Visit Provider Family Medicine
DX: M79.604 Pain in right leg (principal)
CPT/HCPCS: 93971